=== PATIENT | female | born 1960 | race Caucasian/White ===

== ENCOUNTER 2019-05-11 18:49 | Inpatient (IN) | payer MEDICARE, OTHER ==
[2019-05-11] MEDS ORDERED: FAMOTIDINE 20 MG/2 ML VIAL IV STA (19:26)
[2019-05-11] MEDS ORDERED: diphenhydrAMINE 50 MG/ML 1 ML VIAL IVP STA (19:26)
[2019-05-11] MEDS ORDERED: methylPREDNISolone SOD SUCCI 125 MG/2 ML VIAL IV STA (19:26)
--- NOTE | 2019-05-11 20:54 | ED ---
General Adult HPI - General Chief complaint: Recheck/Abnormal Lab/Rx Stated complaint: tongue swelling Time Seen by Provider: 05/11/19 18:58 Source: Caregiver Mode of arrival: ambulatory Limitations: no limitations - History of Present Illness Initial comments: 59-year-old female patient presents to the emergency department today for evaluation of swelling to her tongue. Patient [place] the [place] and while there she began having difficulty swallowing due to her tongue being swollen. Patient is developmentally delayed and lives in an [facility]. She is mostly nonverbal. Patient did have a similar episode 4 days ago where she was seen at [facility] and given epinephrine, Benadryl, cimetidine, Pepcid, and 4 units of fresh frozen plasma. Symptoms did resolve in the department she was discharged home on a prednisone taper. Patient is still taking the steroid. She had been doing well until return of symptoms today. Caregiver reports that she did start using a chlorhexidine mouth wash for inflamed gums around the time that the tongue swelling started. Patient is having no lip swelling. No evidence of shortness of breath or difficulty in breathing. She has no rash. She does not appear to be itchy. Her only known medication [facility]ERGIES lithium and topiramate. - Related Data Home Medications Medication Instructions Recorded Confirmed Bumetanide [Bumex] 1 mg PO DAILY@0700 09/15/18 05/11/19 Calcium Carbonate 500 mg PO BID@0700,1600 09/15/18 05/11/19 Carbidopa-Levodopa 25-100 mg 2 tab PO BID@0600,1400 09/15/18 05/11/19 [Sinemet 25-100] Fiber Powder 1 tbsp PO DAILY@199909/15/18 05/11/19 Ipratropium-Albuterol Nebulize 3 ml INHALATION RT-QID PRN 09/15/18 05/11/19 [Duoneb 0.5 mg-3 mg/3 ml Soln] Levothyroxine Sodium [Synthroid] 100 mcg PO HS@199909/15/18 05/11/19 Lovastatin [Mevacor] 40 mg PO HS@199909/15/18 05/11/19 Multivits,Th W-Ca,Fe,Oth Min 1 tab PO DAILY@0700 09/15/18 05/11/19 [Therapeutic M] Polyethylene Glycol 3350 [Miralax] 17 gm PO DAILY@0700 09/15/18 05/11/19 Potassium Chloride ER [K-Dur 20] 20 meq PO DAILY@0700 09/15/18 05/11/19 QUEtiapine [SEROquel] 400 mg PO HS@199909/15/18 05/11/19 clonazePAM [KlonoPIN] 1 mg PO BID@0700,1200 09/15/18 05/11/19 traZODone HCL [Desyrel] 50 mg PO HS@199909/15/18 05/11/19 Benztropine Mesylate [Cogentin] 1 mg PO BID@0700,199905/11/19 05/11/19 Chlorhexidine Gluconate [Peridex] 15 ml PO BID 05/11/19 05/11/19 Fluticasone Nasal [place] [Flonase 2 spr EA NOSTRIL DAILY@69905/11/19 05/11/19 Nasal [place]] Loratadine [Claritin] 10 mg PO DAILY@69905/11/19 05/11/19 predniSONE See Taper PO DAILY 05/11/19 05/11/19 Allergies Allergy/AdvReac Type Severity Reaction Status Date / Time lithium Allergy Unknown Verified 05/11/19 21:21 topiramate [From Topamax] Allergy Unknown Verified 05/11/19 21:21 Review of Systems ROS Statement: Those systems with pertinent positive or pertinent negative responses have been documented in the HPI. ROS Other: All systems not noted in ROS Statement are negative. 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; pharyngeal dysphagia; percardial cyst; right side aortic arch; sleep apnea; bronchial asthma; venous insufficincy; chronic constipation; hammer toe 2 - 5 History of Any Multi-Drug Resistant Organisms: None Reported Additional Past Surgical History / Comment(s): salvary gland left side removed Past Psychological History: Bipolar, Depression Smoking Status: Never smoker Past Alcohol Use History: None Reported Past Drug Use History: None Reported - Past Family History Mother Family Medical History: Unable to Obtain General Exam Limitations: no limitations General appearance: alert, in no apparent distress, other (Physical well- developed, well-nourished adult female patient in no acute distress. Vital signs upon presentation are temperature 99.7F, pulse 106, respirations 18, blood pressure 103/56, pulse ox 97% on room air.) Eye exam: Present: normal appearance, PERRL, EOMI. Absent: scleral icterus, conjunctival injection, periorbital swelling ENT exam: Present: normal exam, normal oropharynx, mucous membranes moist Respiratory exam: Present: normal lung sounds bilaterally. Absent: respiratory distress, wheezes, rales, rhonchi, stridor Cardiovascular Exam: Present: regular rate, normal rhythm, normal heart sounds. Absent: systolic murmur, diastolic murmur, rubs, gallop, clicks Neurological exam: Present: alert, oriented X3, CN II-XII intact Psychiatric exam: Present: normal affect, normal mood Skin exam: Present: warm, dry, intact, normal color. Absent: rash Course Vital Signs 05/11/19 05/11/19 18:50 21:41 Temperature 99.7 F H 97.6 F Pulse Rate 106 H 76 Respiratory 18 16 Rate Blood Pressure 103/56 161/94 O2 Sat by Pulse 97 98 Oximetry Medical Decision Making - Medical Decision Making 59-year-old female patient presents to the emergency department today for evaluation of swelling to the tongue. Physical examination did reveal macroglossia. There is no facial or submental swelling. Patient is breathing without difficulty. Labs reviewed and are unremarkable. Patient did have a similar episode to this approximately 4 days ago and has been on a prednisone taper. Caregiver is present at bedside initially denied any new exposures including medications or foods. She then reported that patient did start a chlorhexidine mouth rinse around the same time as the initial tongue swelling. Patient was given IV indications including Solu-Medrol, Benadryl, and Pepcid. Upon reevaluation the tongue remains the same size. She is still having no difficulty breathing. We'll mid for observation and continued IV steroids. - Lab Data Result diagrams: 05/11/19 21:36 05/11/19 21:36 Lab Results 05/11/19 05/11/19 Range/Units 21:36 21:36 WBC 5.1 (3.8-10.6) k/uL RBC 3.75 L (3.80-5.40) m/uL Hgb 11.6 (11.4-16.0) gm/dL Hct 35.9 (34.0-46.0) % MCV 95.7 (80.0-100.0) fL MCH 31.1 (25.0-35.0) pg MCHC 32.5 (31.0-37.0) g/dL RDW 13.5 (11.5-15.5) % Plt Count 166 (150-450) k/uL Neutrophils % 85 % Lymphocytes % 12 % Monocytes % 2 % Eosinophils % 0 % Basophils % 0 % Neutrophils # 4.4 (1.3-7.7) k/uL Lymphocytes # 0.6 L (1.0-4.8) k/uL Monocytes # 0.1 (0-1.0) k/uL Eosinophils # 0.0 (0-0.7) k/uL Basophils # 0.0 (0-0.2) k/uL Sodium 139 (137-145) mmol/L Potassium 4.5 (3.5-5.1) mmol/L Chloride 102 (98-107) mmol/L Carbon Dioxide 30 (22-30) mmol/L Anion Gap 7 mmol/L BUN 21 H (7-17) mg/dL Creatinine 0.92 (0.52-1.04) mg/dL Est GFR (CKD-EPI)AfAm 79 (>60 ml/min/1.73 sqM) Est GFR (CKD-EPI)NonAf 68 (>60 ml/min/1.73 sqM) Glucose 126 H (74-99) mg/dL Calcium 9.6 (8.4-10.2) mg/dL Total Bilirubin 0.3 (0.2-1.3) mg/dL AST 25 (14-36) U/L ALT 13 (9-52) U/L Alkaline Phosphatase 96 (38-126) U/L Total Protein 7.9 (6.3-8.2) g/dL Albumin 4.5 (3.5-5.0) g/dL Disposition Clinical Impression: Angioedema Disposition: ADMITTED IP TO THIS [facility] Condition: Serious Referrals: Carlitos Valenzuela MD [Primary Care Provider] - 1-2 days Decision to Admit Reason: Admit from EC Decision Date: 05/11/19 Decision Time: 20:58
[2019-05-11] MEDS ORDERED: NALOXONE 0.4 MG/ML 1 ML VIAL IV PRN (20:56)
[2019-05-11 22:05] LABS: Basophils % (A) 0 %; Eosinophils % (A) 0 %; HCT 35.9 % (34.0-46.0); HGB 11.6 gm/dL (11.4-16.0); Lymphocytes # (A) 0.6 k/uL (1.0-4.8); Lymphocytes % (A) 12 %; MCH 31.1 pg (25.0-35.0); MCHC 32.5 g/dL (31.0-37.0); MCV 95.7 fL (80.0-100.0); Mean Platelet Volume 8.4; Monocytes # (A) 0.1 k/uL (0-1.0); Monocytes % (A) 2 %; Neutrophils # (A) 4.4 k/uL (1.3-7.7); Neutrophils % (A) 85 %; Platelet Count 166 k/uL (150-450); RBC 3.75 m/uL (3.80-5.40); RDW 13.5 % (11.5-15.5); WBC 5.1 k/uL (3.8-10.6)
[2019-05-11 22:13] LABS: Albumin 4.5 g/dL (3.5-5.0); Calcium 9.6 mg/dL (8.4-10.2); Potassium 4.5 mmol/L (3.5-5.1); Total Bilirubin 0.3 mg/dL (0.2-1.3); Total Protein 7.9 g/dL (6.3-8.2)
[2019-05-11] MEDS ORDERED: diphenhydrAMINE 50 MG/ML 1 ML VIAL IVP PRN (22:54)
[2019-05-12] MEDS: methylPREDNISolone SOD SUCCI 125 MG/2 ML VIAL IV SCH ×3 (01:56→13:39)
[2019-05-12] MEDS: FAMOTIDINE 20 MG/2 ML VIAL IV SCH (08:58)
[2019-05-12] MEDS ORDERED: IPRATROPIUM-ALBUTEROL 3 ML NEB INHALATION PRN (10:09)
[2019-05-12] MEDS: CARBIDOPA-LEVODOPA 25-100 MG 1 EACH TAB PO SCH (13:40)
[2019-05-12] MEDS: clonazePAM 1 MG TAB PO SCH (13:40)
--- NOTE | 2019-05-12 16:27 | HP ---
HISTORY AND PHYSICAL CHIEF COMPLAINT: Angioedema with swelling of the tongue. HISTORY OF PRESENT ILLNESS: It is difficult to obtain history on this 59-year-old white mentally incapacitated female from a residential. She was sent in and it was notice that she had significant swelling of the tongue. There apparently was no change in the skin, respiratory difficulty, fever and chills, etc. The cause of this is undetermined. REVIEW OF SYSTEMS: Cannot be obtained from the patient. Past medical history, family history and personal and social histories are unobtainable. Medications are extensive and can be found in her MAR. PHYSICAL EXAMINATION: Blood pressure is 138/87 with a pulse of 88, respirations of 30, and she is there is no fever. Head, ears, eyes, nose, mouth, and throat were grossly normal as well as could be examined. There was little cooperation. Neck could not be assessed. Breath sounds are heard on both sides of the chest and the cardiac exam demonstrated a grade 2-3 systolic murmur throughout the precordium. Abdomen is soft and no masses. Extremities demonstrated a parkinsonian tremor in the arms and hands on both sides. IMPRESSION: 1. Angioedema. 2. Cerebral palsy with mental debility. 3. Parkinsonism. PLAN: 1. Bed rest. 2. IV fluids. 3. Steroids. MMODL / IJN: [id number] /
[2019-05-12] MEDS: diphenhydrAMINE 50 MG/ML 1 ML VIAL IVP SCH (18:06)
[2019-05-12] MEDS: DEXAMETHASONE SOD PHOSPHATE 4 MG/ML 1 ML VIAL IV SCH ×2 (18:06→18:57)
[2019-05-12] MEDS: CHLORHEXIDINE GLUCONATE 15 ML CUP MUCOUS MEM SCH (21:09)
[2019-05-12] MEDS: ATORVASTATIN 10 MG TAB PO SCH (21:10)
[2019-05-12] MEDS: LEVOTHYROXINE 100 MCG TAB PO SCH (21:10)
[2019-05-12] MEDS: traZODone HCL 50 MG TAB PO SCH (21:10)
[2019-05-12] MEDS: QUEtiapine 200 MG TAB PO SCH (21:10)
[2019-05-12] MEDS: BENZTROPINE MESYLATE 1 MG TAB PO SCH (21:10)
--- NOTE | 2019-05-12 23:24 | DS ---
DISCHARGE SUMMARY CHIEF COMPLAINT: Angioedema. HISTORY OF PRESENT ILLNESS AND PHYSICAL EXAM: Details of this lady's history and physical can be found in the initial workup. LABORATORY STUDIES: While she was in the hospital, she had laboratory studies, details of which can be found in the laboratory section of her chart. COURSE IN HOSPITAL: After admission, she was placed on bedrest and started on bedrest with steroids and the swelling went down. Vital signs remained stable and no further problems developed. It is felt that she could go home the following day and she will be sent home on her usual medications and activity along with Medrol Dosepak. FINAL DIAGNOSES: 1. Angioedema, etiology unknown. 2. Mental incapacitation. 3. Cardiac murmur. 4. Parkinsonism. OPERATIONS: None. CONSULTATION: None. She is improved. MMODL / IJN: [id number] /
[2019-05-13] MEDS: diphenhydrAMINE 50 MG/ML 1 ML VIAL IVP SCH ×4 (00:02→17:57)
[2019-05-13] MEDS: DEXAMETHASONE SOD PHOSPHATE 4 MG/ML 1 ML VIAL IV SCH ×4 (00:02→18:10)
[2019-05-13] MEDS: CARBIDOPA-LEVODOPA 25-100 MG 1 EACH TAB PO SCH ×2 (05:03→14:35)
[2019-05-13] MEDS: POTASSIUM CHLORIDE ER 20 MEQ TAB.ER PO SCH ×2 (08:34→10:54)
[2019-05-13] MEDS: clonazePAM 1 MG TAB PO SCH ×2 (08:34→12:50)
[2019-05-13] MEDS: BUMETANIDE 1 MG TAB PO SCH (08:35)
[2019-05-13] MEDS: BENZTROPINE MESYLATE 1 MG TAB PO SCH ×2 (08:35→20:51)
[2019-05-13] MEDS: LORATADINE 10 MG TAB PO SCH (08:35)
[2019-05-13] MEDS: POLYETHYLENE GLYCOL 3350 17 GM POWD.PACK PO SCH (08:35)
[2019-05-13] MEDS: FAMOTIDINE 20 MG/2 ML VIAL IV SCH (08:37)
[2019-05-13] MEDS: methylPREDNISolone 4 MG TAB TAPER PO SCH (08:37)
[2019-05-13] MEDS: CHLORHEXIDINE GLUCONATE 15 ML CUP MUCOUS MEM SCH ×2 (12:45→20:51)
--- NOTE | 2019-05-13 13:19 | PN ---
PROGRESS NOTE DATE OF SERVICE: 05/13/2019 CHIEF COMPLAINT: Angioedema. HISTORY OF PRESENT ILLNESS: This lady seems stable for the present. She was to be discharged yesterday and then she started to develop swelling of the tongue, lips and throat and was placed back on steroids and antihistamines. PHYSICAL EXAMINATION: The tongue is still slightly swollen. There is no rash. Chest is clear. There is no wheezing. IMPRESSION: Angioedema, etiology unknown. PLAN: Continue on antihistamines and steroids for another 48 hours before trying to stop them and discharge her. MMODL / IJN: [id number] /
[2019-05-13] MEDS: LEVOTHYROXINE 100 MCG TAB PO SCH (20:51)
[2019-05-13] MEDS: traZODone HCL 50 MG TAB PO SCH (20:51)
[2019-05-13] MEDS: QUEtiapine 200 MG TAB PO SCH (20:51)
[2019-05-13] MEDS: ATORVASTATIN 10 MG TAB PO SCH (20:51)
[2019-05-14] MEDS: diphenhydrAMINE 50 MG/ML 1 ML VIAL IVP SCH ×5 (00:07→20:09)
[2019-05-14] MEDS: DEXAMETHASONE SOD PHOSPHATE 4 MG/ML 1 ML VIAL IV SCH ×2 (00:07→05:30)
[2019-05-14] MEDS: CARBIDOPA-LEVODOPA 25-100 MG 1 EACH TAB PO SCH ×2 (05:31→13:07)
[2019-05-14 06:55] LABS: Glucose,Whole Blood 117 mg/dL (75-99)
[2019-05-14] MEDS ORDERED: INSULIN ASPART (NovoLOG) 100 UNIT/ML VIAL SQ SCH (07:30)
[2019-05-14] MEDS: FAMOTIDINE 20 MG/2 ML VIAL IV SCH (08:42)
[2019-05-14] MEDS: BENZTROPINE MESYLATE 1 MG TAB PO SCH ×2 (08:42→20:05)
[2019-05-14] MEDS: POTASSIUM CHLORIDE ER 20 MEQ TAB.ER PO SCH (08:42)
[2019-05-14] MEDS: clonazePAM 1 MG TAB PO SCH ×2 (08:42→13:07)
[2019-05-14] MEDS: LORATADINE 10 MG TAB PO SCH (08:42)
[2019-05-14] MEDS: BUMETANIDE 1 MG TAB PO SCH (08:43)
[2019-05-14] MEDS: POLYETHYLENE GLYCOL 3350 17 GM POWD.PACK PO SCH (08:43)
[2019-05-14] MEDS: CHLORHEXIDINE GLUCONATE 15 ML CUP MUCOUS MEM SCH ×2 (08:43→20:05)
[2019-05-14] MEDS: methylPREDNISolone 4 MG TAB TAPER PO SCH (08:54)
[2019-05-14 11:35] LABS: Glucose,Whole Blood 163 mg/dL (75-99)
--- NOTE | 2019-05-14 18:13 | PN ---
PROGRESS NOTE DATE OF SERVICE: 05/14/2019. CHIEF COMPLAINT: Angioedema. HISTORY OF PRESENT ILLNESS: This lady is doing fairly well. Her lip and tongue swelling is improving slightly. She seems comfortable. It is difficult to tell given her incapacitation. PHYSICAL EXAMINATION: The tongue still looks slightly swollen, but the lips seem be normal. Lymph nodes not enlarged. Chest is clear. IMPRESSION: Angioedema. PLAN: Stop her IV and oral steroids and see how she does. If she does well, she could probably be discharged in the next 48 hours. MMODL / IJN: [id number] /
[2019-05-14] MEDS: QUEtiapine 200 MG TAB PO SCH (20:05)
[2019-05-14] MEDS: traZODone HCL 50 MG TAB PO SCH (20:05)
[2019-05-14] MEDS: ATORVASTATIN 10 MG TAB PO SCH (20:05)
[2019-05-14] MEDS: LEVOTHYROXINE 100 MCG TAB PO SCH (20:05)
[2019-05-15] MEDS: CARBIDOPA-LEVODOPA 25-100 MG 1 EACH TAB PO SCH ×2 (06:04→14:27)
[2019-05-15] MEDS: diphenhydrAMINE 50 MG/ML 1 ML VIAL IVP SCH ×4 (06:05→21:38)
[2019-05-15] MEDS: POLYETHYLENE GLYCOL 3350 17 GM POWD.PACK PO SCH (08:41)
[2019-05-15] MEDS: LORATADINE 10 MG TAB PO SCH (08:41)
[2019-05-15] MEDS: CHLORHEXIDINE GLUCONATE 15 ML CUP MUCOUS MEM SCH ×2 (08:41→20:38)
[2019-05-15] MEDS: POTASSIUM CHLORIDE ER 20 MEQ TAB.ER PO SCH (08:41)
[2019-05-15] MEDS: FAMOTIDINE 20 MG/2 ML VIAL IV SCH (08:42)
[2019-05-15] MEDS: clonazePAM 1 MG TAB PO SCH ×2 (08:42→14:27)
[2019-05-15] MEDS: BUMETANIDE 1 MG TAB PO SCH (08:42)
[2019-05-15] MEDS: BENZTROPINE MESYLATE 1 MG TAB PO SCH ×2 (08:42→20:43)
--- NOTE | 2019-05-15 15:57 | PN ---
PROGRESS NOTE CHIEF COMPLAINT: Angioneurotic edema. HISTORY OF PRESENT ILLNESS: This lady seems to be doing fairly well today. It is a little difficult to figure out exactly where she is with the swelling of the tongue and lips, but they look fairly normal. PHYSICAL EXAMINATION: Chest is clear. Cardiac exam is normal. IMPRESSION: 1. Angioedema. 2. Mental debility. PLAN: Probably watch one more day off of steroids and then discharge back to the care home. MMODL / IJN: [id number] /
[2019-05-15] MEDS: LEVOTHYROXINE 100 MCG TAB PO SCH (20:38)
[2019-05-15] MEDS: ATORVASTATIN 10 MG TAB PO SCH (20:38)
[2019-05-15] MEDS: QUEtiapine 200 MG TAB PO SCH (20:38)
[2019-05-15] MEDS: traZODone HCL 50 MG TAB PO SCH (20:38)
[2019-05-16] MEDS: CARBIDOPA-LEVODOPA 25-100 MG 1 EACH TAB PO SCH (06:22)
[2019-05-16] MEDS: diphenhydrAMINE 50 MG/ML 1 ML VIAL IVP SCH ×2 (06:22→12:07)
[2019-05-16 07:57] VITALS: BP 110/99; PULSE 80; RESP 18; TEMP 98.3
[2019-05-16] MEDS: BUMETANIDE 1 MG TAB PO SCH (08:51)
[2019-05-16] MEDS: BENZTROPINE MESYLATE 1 MG TAB PO SCH (08:51)
[2019-05-16] MEDS: POTASSIUM CHLORIDE ER 20 MEQ TAB.ER PO SCH (08:51)
[2019-05-16] MEDS: clonazePAM 1 MG TAB PO SCH ×2 (08:51→17:49)
[2019-05-16] MEDS: FAMOTIDINE 20 MG/2 ML VIAL IV SCH (08:51)
[2019-05-16] MEDS: CHLORHEXIDINE GLUCONATE 15 ML CUP MUCOUS MEM SCH (08:52)
[2019-05-16] MEDS: LORATADINE 10 MG TAB PO SCH (08:52)
[2019-05-16] MEDS: POLYETHYLENE GLYCOL 3350 17 GM POWD.PACK PO SCH (08:52)
--- NOTE | 2019-05-16 22:29 | PN ---
PROGRESS NOTE CHIEF COMPLAINT: Angioedema. HISTORY OF PRESENT ILLNESS: This lady seems to be doing fairly well and seems stable. We will try to discharge her today. PHYSICAL EXAM: Oral cavity and tongue appear to be normal. Lips are not swollen. Chest is clear. IMPRESSION: Angioedema. PLAN: Discharge today. MMODL / IJN: [id number] /
--- NOTE | 2019-05-16 23:14 | DS ---
DISCHARGE SUMMARY CHIEF COMPLAINT: Angioedema. HISTORY OF PRESENT ILLNESS AND PHYSICAL EXAM: Details of this lady's history and physical can be found in the initial workup. LABORATORY STUDIES: While she was in the hospital, she had laboratory studies, details of which can be found in the laboratory section of her chart. COURSE IN HOSPITAL: After admission, she was placed on bedrest and started on IV steroids. The swelling subsided. She is difficult to evaluate due to her mental incapacitation. She was stable for several days and was felt that she could go home. However, as soon as the steroids were withdrawn, she redeveloped the angioedema, swelling of the throat, the tongue and lips. She was placed back on steroids and Benadryl and the steroids were stopped the day prior to discharge and she seemed to be stable. It was felt that she could go home on the on her usual activity, diet and medication and she will follow up with her own personal physician in the home that she is in. FINAL DIAGNOSES: 1. Angioedema. 2. Mental incapacitation. OPERATION: None. CONSULTATION: She is improved. MMODL / IJN: [id number] /
[2019-05-17] MEDS ORDERED: FAMOTIDINE 20 MG TAB PO SCH (09:00)
== END 2019-05-16 17:57 | disposition home or self-care (01) | DRG 916 ==
LOC: EC 18:49 → 1SOBS 21:48 → OBSVTOIN 05-13 15:28
PROVIDERS: ADMIT Family Medicine; ATTEND Family Medicine
DX: T78.3XXA Angioneurotic edema, initial encounter (principal); E78.5 Hyperlipidemia, unspecified; F79 Unspecified intellectual disabilities; G20 Parkinson's disease; G40.909 Epilepsy, unspecified, not intractable, without status epilepticus; G47.30 Sleep apnea, unspecified; G80.9 Cerebral palsy, unspecified; H90.5 Unspecified sensorineural hearing loss; I87.2 Venous insufficiency (chronic) (peripheral); J44.9 Chronic obstructive pulmonary disease, unspecified; Q38.2 Macroglossia; R13.10 Dysphagia, unspecified; Z79.890 Hormone replacement therapy; Z88.8 Allergy status to other drugs, medicaments and biological substances; R01.1 Cardiac murmur, unspecified; Z79.899 Other long term (current) drug therapy
CPT/HCPCS: 36415; 80053; 85025; 96374; 96375; 99284

== ENCOUNTER 2019-05-17 22:38 | Inpatient (IN) | payer MEDICARE, OTHER ==
[2019-05-17] MEDS ORDERED: diphenhydrAMINE 50 MG/ML 1 ML VIAL IVP STA (23:01)
[2019-05-17] MEDS ORDERED: methylPREDNISolone SOD SUCCI 125 MG/2 ML VIAL IV STA (23:01)
[2019-05-17] MEDS ORDERED: SODIUM CHLORIDE 0.9% 1,000 ML IV STA (23:02)
[2019-05-17] MEDS ORDERED: FAMOTIDINE 20 MG/2 ML VIAL IV STA (23:02)
[2019-05-17 23:27] LABS: Basophils % (A) 0 %; Eosinophils % (A) 0 %; HCT 40.9 % (34.0-46.0); HGB 13.1 gm/dL (11.4-16.0); Lymphocytes # (A) 0.4 k/uL (1.0-4.8); Lymphocytes % (A) 4 %; MCH 30.4 pg (25.0-35.0); MCV 95.1 fL (80.0-100.0); Mean Platelet Volume 8.7; Monocytes # (A) 0.2 k/uL (0-1.0); Monocytes % (A) 2 %; Neutrophils # (A) 8.3 k/uL (1.3-7.7); Neutrophils % (A) 92 %; Platelet Count 179 k/uL (150-450); RDW 13.4 % (11.5-15.5); WBC 9.1 k/uL (3.8-10.6)
[2019-05-17 23:35] LABS: Albumin 4.4 g/dL (3.5-5.0); Calcium 9.2 mg/dL (8.4-10.2); Potassium 4.7 mmol/L (3.5-5.1); Total Bilirubin 0.3 mg/dL (0.2-1.3); Total Protein 8.1 g/dL (6.3-8.2)
--- NOTE | 2019-05-18 00:30 | CT ---
EXAM: CT Neck Without Intravenous Contrast CLINICAL HISTORY: ITS.REASON CT Reason: Pain TECHNIQUE: Axial computed tomography images of the neck without intravenous contrast. This CT exam was performed using one or more of the following dose reduction techniques: automated exposure control, adjustment of the mA and/or kV according to patient size, and/or use of iterative reconstruction technique. COMPARISON: No relevant prior studies available. FINDINGS: Oropharynx: Unremarkable. No significant tonsillar enlargement. Hypopharynx: Unremarkable. Larynx: Unremarkable. Normal epiglottis. Trachea: Unremarkable. Retropharyngeal space: Unremarkable. Submandibular/parotid glands: Unremarkable. Glands are normal in size. Thyroid: No suspicious nodules. Bones/joints: No acute fracture. Soft tissues: Unremarkable. Vasculature: No suspicious findings. Lymph nodes: Unremarkable. No lymphadenopathy. Lung apices: Unremarkable as visualized. IMPRESSION: No acute findings.
--- NOTE | 2019-05-18 01:22 | ED ---
Allergic Reaction HPI - General Chief complaint: Allergic Reaction Stated complaint: Tongue Swelling Time Seen by Provider: 05/17/19 22:45 Source: Caregiver Mode of arrival: ambulatory Limitations: altered mental status - History of Present Illness Initial Comments: The patient is a 59-year-old female who presents to the emergency department with reported tongue swelling. The patient was just recently discharged for similar complaint. She was also seen at [facility], treated and discharged. The caregiver at bedside does provide the history. The patient is currently nonverbal at baseline. They state that during dinner tonight the patient began having difficulty swallowing her foods. They did ask to examine the patient's airway and they did notice that the patient had an enlarged tongue. The patient was just previously treated for angioedema. She was given steroids with good improvement previously in her symptoms. She never required intubation. The patient is not on any Juan Jose inhibitors. The patient was recently taken off a significant amount of her medications. They deny any new medications. They deny that the patient has eaten any new foods. She was on a mouthwash which has subsequently been stopped. No history of ALLERGIC reactions in the past. They're told to return to the emergency department if the patient symptoms worsen. They deny any respiratory compromise. There are no other alleviating, precipitating or modifying factors - Related Data Home Medications Medication Instructions Recorded Confirmed Calcium Carbonate 500 mg PO BID@0700,1600 09/15/18 05/17/19 Fiber Powder 1 tbsp PO DAILY@199909/15/18 05/17/19 Ipratropium-Albuterol Nebulize 3 ml INHALATION RT-QID PRN 09/15/18 05/17/19 [Duoneb 0.5 mg-3 mg/3 ml Soln] Multivits,Th W-Ca,Fe,Oth Min 1 tab PO DAILY@0700 09/15/18 05/17/19 [Therapeutic M] Potassium Chloride ER [K-Dur 20] 20 meq PO DAILY@69909/15/18 05/17/19 clonazePAM [KlonoPIN] 1 mg PO BID@0700,1200 09/15/18 05/17/19 Benztropine Mesylate [Cogentin] 1 mg PO BID@0700,199905/11/19 05/17/19 Fluticasone Nasal [place] [Flonase 2 spr EA NOSTRIL DAILY@0700 19 07/31/19 Nasal [place]] Loratadine [Claritin] 10 mg PO DAILY@69905/11/19 05/17/19 ARIPiprazole [Abilify] 10 mg PO DAILY@69905/17/19 05/17/19 Budesonide [Pulmicort] 0.5 mg INHALATION DAILY PRN 05/17/19 05/17/19 Polyethylene Glycol 3350 [Miralax] 17 gm PO BID@699,199905/17/19 05/17/19 Allergies Allergy/AdvReac Type Severity Reaction Status Date / Time lithium Allergy Unknown Verified 05/17/19 23:11 topiramate [From Topamax] Allergy Unknown Verified 05/17/19 23:11 Review of Systems ROS Statement: Those systems with pertinent positive or pertinent negative responses have been documented in the HPI. Limitations: ROS unobtainable due to patients medical condition 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; pharyngeal dysphagia; percardial cyst; right side aortic arch; sleep apnea; bronchial asthma; venous insufficincy; chronic constipation; hammer toe 2 - 5 History of Any Multi-Drug Resistant Organisms: None Reported Additional Past Surgical History / Comment(s): salvary gland left side removed Additional Past Anesthesia/Blood Transfusion Reaction / Comment(s): unknown, pt nonverbal developmentally delayed. Past Psychological History: Bipolar, Depression Smoking Status: Never smoker Past Alcohol Use History: None Reported Past Drug Use History: None Reported - Past Family History Mother Family Medical History: Unable to Obtain General Exam Limitations: altered mental status General appearance: alert, in no apparent distress Head exam: Present: atraumatic, normocephalic, normal inspection Eye exam: Present: normal appearance, PERRL, EOMI. Absent: scleral icterus, conjunctival injection, periorbital swelling ENT exam: Present: other (macroglossia. Floor of mouth appears edematous. Posterior pharynx appears normal. No uvular deviation. No signs of thrush. No drooling, trismus, hoarseness or stridor) Neck exam: Present: normal inspection, other (no crepitance or brawny edema). Absent: tenderness, meningismus, lymphadenopathy Respiratory exam: Present: normal lung sounds bilaterally. Absent: respiratory distress, wheezes, rales, rhonchi, stridor Cardiovascular Exam: Present: regular rate, normal rhythm, normal heart sounds. Absent: systolic murmur, diastolic murmur, rubs, gallop, clicks GI/Abdominal exam: Present: soft, normal bowel sounds. Absent: distended, tenderness, guarding, rebound, rigid Extremities exam: Present: normal inspection, full ROM, normal capillary refill. Absent: tenderness, pedal edema, joint swelling, calf tenderness Back exam: Present: normal inspection Neurological exam: Present: alert, CN II-XII intact Psychiatric exam: Present: anxious, flat affect Skin exam: Present: warm, dry, intact, normal color. Absent: rash Course Vital Signs 05/17/19 05/17/19 05/18/19 22:41 22:56 02:41 Temperature 97.6 F Pulse Rate 98 89 Respiratory 16 18 18 Rate Blood Pressure 151/85 138/99 O2 Sat by Pulse 94 L 95 Oximetry Medical Decision Making - Medical Decision Making Upon arrival the patient was placed in a trauma bay 1. She was hooked up to continuous pulse ox and cardiac monitoring. A full physical exam was performed. There does not appear to be any swelling of the patient's posterior pharynx. She is resting comfortably in bed. There are no signs of respiratory distress or stridor. No drooling, trismus or hoarseness to the patient's voice. She is presently nonverbal. I did recommend laboratory studies and a CT of the patient's neck. Peripheral IV was established and the patient was given 125 mg Solu-Medrol, 20 mg of Pepcid and 50 mg of Benadryl. The patient does have serial exams performed. The swelling does seem improved. She continues to not have any signs of respiratory distress. I recommended the patient stay in the hospital. I called to discuss case with Dr. Dillon. I did discuss with him whether the patient should be admitted to ICU however he states the patient does respond normally well to the steroids. I did admit the patient to a normal telemetry monitored bed. The patient remained in stable condition was transported to the floor - Lab Data Result diagrams: 05/19/19 07:24 05/19/19 07:24 Lab Results 05/17/19 05/17/19 05/17/19 Range/Units 23:16 23:16 23:16 WBC 9.1 (3.8-10.6) k/uL RBC 4.30 (3.80-5.40) m/uL Hgb 13.1 (11.4-16.0) gm/dL Hct 40.9 (34.0-46.0) % MCV 95.1 (80.0-100.0) fL MCH 30.4 (25.0-35.0) pg MCHC 32.0 (31.0-37.0) g/dL RDW 13.4 (11.5-15.5) % Plt Count 179 (150-450) k/uL Neutrophils % 92 % Lymphocytes % 4 % Monocytes % 2 % Eosinophils % 0 % Basophils % 0 % Neutrophils # 8.3 H (1.3-7.7) k/uL Lymphocytes # 0.4 L (1.0-4.8) k/uL Monocytes # 0.2 (0-1.0) k/uL Eosinophils # 0.0 (0-0.7) k/uL Basophils # 0.0 (0-0.2) k/uL Sodium 138 (137-145) mmol/L Potassium 4.7 (3.5-5.1) mmol/L Chloride 98 (98-107) mmol/L Carbon Dioxide 28 (22-30) mmol/L Anion Gap 12 mmol/L BUN 29 H (7-17) mg/dL Creatinine 0.94 (0.52-1.04) mg/dL Est GFR (CKD-EPI)AfAm 76 (>60 ml/min/1.73 sqM) Est GFR (CKD-EPI)NonAf 66 (>60 ml/min/1.73 sqM) Glucose 136 H (74-99) mg/dL Plasma Lactic Acid Dniesh (0.7-2.0) mmol/L Calcium 9.2 (8.4-10.2) mg/dL Total Bilirubin 0.3 (0.2-1.3) mg/dL AST 28 (14-36) U/L ALT 17 (9-52) U/L Alkaline Phosphatase 105 (38-126) U/L Total Protein 8.1 (6.3-8.2) g/dL Albumin 4.4 (3.5-5.0) g/dL Blood Type Blood Type Confirm A Positive Blood Type Recheck Antibody Screen Spec Expiration Date 05/18/19 05/18/19 05/18/19 Range/Units 02:56 19:01 19:01 WBC 7.8 (3.8-10.6) k/uL RBC 4.15 (3.80-5.40) m/uL Hgb 13.2 (11.4-16.0) gm/dL Hct 40.3 (34.0-46.0) % MCV 97.3 (80.0-100.0) fL MCH 31.9 (25.0-35.0) pg MCHC 32.7 (31.0-37.0) g/dL RDW 13.5 (11.5-15.5) % Plt Count 154 (150-450) k/uL Neutrophils % 91 % Lymphocytes % 6 % Monocytes % 2 % Eosinophils % 0 % Basophils % 0 % Neutrophils # 7.2 (1.3-7.7) k/uL Lymphocytes # 0.5 L (1.0-4.8) k/uL Monocytes # 0.2 (0-1.0) k/uL Eosinophils # 0.0 (0-0.7) k/uL Basophils # 0.0 (0-0.2) k/uL Sodium 141 (137-145) mmol/L Potassium 4.5 (3.5-5.1) mmol/L Chloride 106 (98-107) mmol/L Carbon Dioxide 26 (22-30) mmol/L Anion Gap 9 mmol/L BUN 22 H (7-17) mg/dL Creatinine 0.89 (0.52-1.04) mg/dL Est GFR (CKD-EPI)AfAm 82 (>60 ml/min/1.73 sqM) Est GFR (CKD-EPI)NonAf 71 (>60 ml/min/1.73 sqM) Glucose 143 H (74-99) mg/dL Plasma Lactic Acid Dinesh (0.7-2.0) mmol/L Calcium 9.5 (8.4-10.2) mg/dL Total Bilirubin 0.4 (0.2-1.3) mg/dL AST 26 (14-36) U/L ALT 35 (9-52) U/L Alkaline Phosphatase 100 (38-126) U/L Total Protein 7.5 (6.3-8.2) g/dL Albumin 4.2 (3.5-5.0) g/dL Blood Type A Positive Blood Type Confirm Blood Type Recheck CABO Indicated Antibody Screen NEGATIVE Spec Expiration Date 05/21/2019 - 235505/18/19 05/19/19 05/19/19 Range/Units 19:01 07:24 07:24 WBC 8.8 (3.8-10.6) k/uL RBC 3.79 L (3.80-5.40) m/uL Hgb 12.1 (11.4-16.0) gm/dL Hct 37.2 (34.0-46.0) % MCV 98.2 (80.0-100.0) fL MCH 31.8 (25.0-35.0) pg MCHC 32.4 (31.0-37.0) g/dL RDW 13.6 (11.5-15.5) % Plt Count 144 L (150-450) k/uL Neutrophils % 92 % Lymphocytes % 4 % Monocytes % 3 % Eosinophils % 0 % Basophils % 0 % Neutrophils # 8.1 H (1.3-7.7) k/uL Lymphocytes # 0.4 L (1.0-4.8) k/uL Monocytes # 0.3 (0-1.0) k/uL Eosinophils # 0.0 (0-0.7) k/uL Basophils # 0.0 (0-0.2) k/uL Sodium 141 (137-145) mmol/L Potassium 4.3 (3.5-5.1) mmol/L Chloride 108 H (98-107) mmol/L Carbon Dioxide 24 (22-30) mmol/L Anion Gap 9 mmol/L BUN 24 H (7-17) mg/dL Creatinine 0.93 (0.52-1.04) mg/dL Est GFR (CKD-EPI)AfAm 78 (>60 ml/min/1.73 sqM) Est GFR (CKD-EPI)NonAf 68 (>60 ml/min/1.73 sqM) Glucose 136 H (74-99) mg/dL Plasma Lactic Acid Dinesh 1.1 (0.7-2.0) mmol/L Calcium 8.9 (8.4-10.2) mg/dL Total Bilirubin (0.2-1.3) mg/dL AST (14-36) U/L ALT (9-52) U/L Alkaline Phosphatase (38-126) U/L Total Protein (6.3-8.2) g/dL Albumin (3.5-5.0) g/dL Blood Type Blood Type Confirm Blood Type Recheck Antibody Screen Spec Expiration Date Disposition Clinical Impression: Angioedema, Allergic reaction Disposition: ADMITTED IP TO THIS [facility] Condition: Serious Is patient prescribed a controlled substance at d/c from ED?: No Decision to Admit Reason: Admit from EC Decision Date: 05/18/19 Decision Time: 01:22
[2019-05-18] MEDS ORDERED: NALOXONE 0.4 MG/ML 1 ML VIAL IV PRN (01:23)
[2019-05-18] MEDS: diphenhydrAMINE 50 MG/ML 1 ML VIAL IVP SCH ×5 (03:31→21:14)
[2019-05-18] MEDS: methylPREDNISolone SOD SUCCI 125 MG/2 ML VIAL IV SCH ×4 (05:26→23:49)
[2019-05-18] MEDS ORDERED: FAMOTIDINE 20 MG/2 ML VIAL IV SCH (09:00)
[2019-05-18] MEDS: ARIPiprazole 10 MG TAB PO SCH (09:47)
[2019-05-18] MEDS: BENZTROPINE MESYLATE 1 MG TAB PO SCH ×2 (09:47→19:43)
--- NOTE | 2019-05-18 11:33 | CT ---
EXAMINATION TYPE: CT chest wo con DATE OF EXAM: 05/18/2019 COMPARISON: None HISTORY: Pain CT DLP: 442.9 mGycm. Automated Exposure Control for Dose Reduction was Utilized. TECHNIQUE: CT scan of the thorax is performed without IV contrast. FINDINGS: LUNGS: Faint subpleural 7 mm nodule in the right upper lobe axial image 30. No consolidative process, pleural effusion or pneumothorax.. There is no pleural effusion or pneumothorax seen. The tracheo bronchial tree is patent. MEDIASTINUM: Lack of IV contrast is noted to limit evaluation for mediastinal and especially hilar ad enopathy. Aorta extends posterior to the trachea does result in some deviation of the esophagus and t rachea atherosclerotic changes are noted.. OTHER: Hypertrophic and degenerative change of the vertebral column with multilevel mild endplate def ormities which appear chronic chronic-appearing left-sided rib fractures are noted. Structures in the upper abdomen demonstrate numerous markedly dilated bowel loops.. IMPRESSION: 1. No acute intrathoracic process. There is a 7 mm subpleural nodule right upper lobe axial image 29 and 30 which is indeterminate and a 6 month follow-up is recommended to confirm stability. 2. There are markedly dilated bowel loops which are only partially included in the upper abdomen anderson elate clinically. 3. The thoracic aorta extends retroesophageal and tracheal. Origins of great vessels are not well see n by noncontrast technique. This does result in some deviation the trachea and esophagus. Congenital vascular variants are difficult to evaluate by noncontrast technique.
--- NOTE | 2019-05-18 19:06 | HP ---
HISTORY AND PHYSICAL CHIEF COMPLAINT: Swelling of the tongue, lips and floor of mouth. HISTORY OF PRESENT ILLNESS: This is another admission for this 59-year-old mentally incapacitated female who was just discharged back to her shelter after she was treated for angioneurotic edema. Etiology is not clear. She was sent home on steroids and was seen in the office and was doing fairly well, but started to have a little bit of swelling in the floor of the mouth. She was taken off many of her medications in hopes that one of them might be causing the problem. She was brought back in in the middle of the night. REVIEW OF SYSTEMS: Review of systems cannot be obtained due to her dementia. Past medical history, family history and her medication history can all be found in the documents accompanying her from the home. PHYSICAL EXAMINATION: Blood pressure is 138/88 with a pulse of 71, respirations of 20, and she is afebrile. In general she appeared to be slightly overweight and she seemed to be comfortable, but when asked if she was having any problems she pointed to her throat. Head, ears, eyes, nose, mouth and throat were unremarkable except for what looked like some swelling on the floor of the mouth. Tongue also seemed to be slightly swollen. The lips appeared to be normal, but it was difficult to tell, in that this lady is not well known to me. Lymph nodes were not enlarged. Chest was clear. Cardiac exam was normal. The abdomen was soft and nontender. Extremities were normal. IMPRESSION: 1. Angioneurotic edema, recurrent, etiology unknown. 2. Mental incapacitation. PLAN: 1. Resume steroids. 2. Obtain ENT consult. 3. Obtain allergy consult. 4. CT of the chest to rule out any obstructing lesions that might result in a superior vena cava syndrome. MMODL / IJN: [id number] /
[2019-05-18 19:16] LABS: Basophils % (A) 0 %; Eosinophils % (A) 0 %; HCT 40.3 % (34.0-46.0); HGB 13.2 gm/dL (11.4-16.0); Lymphocytes # (A) 0.5 k/uL (1.0-4.8); Lymphocytes % (A) 6 %; MCH 31.9 pg (25.0-35.0); MCHC 32.7 g/dL (31.0-37.0); MCV 97.3 fL (80.0-100.0); Mean Platelet Volume 8.6; Monocytes # (A) 0.2 k/uL (0-1.0); Monocytes % (A) 2 %; Neutrophils # (A) 7.2 k/uL (1.3-7.7); Neutrophils % (A) 91 %; Platelet Count 154 k/uL (150-450); RBC 4.15 m/uL (3.80-5.40); RDW 13.5 % (11.5-15.5); WBC 7.8 k/uL (3.8-10.6)
[2019-05-18 19:25] LABS: Albumin 4.2 g/dL (3.5-5.0); Calcium 9.5 mg/dL (8.4-10.2); Potassium 4.5 mmol/L (3.5-5.1); Total Bilirubin 0.4 mg/dL (0.2-1.3); Total Protein 7.5 g/dL (6.3-8.2)
[2019-05-18] MEDS: ACETAMINOPHEN IV (For NPO) 1,000 MG in EMPTY BAG 1 BAG IVPB PRN (19:48)
[2019-05-18] MEDS: SODIUM CHLORIDE 0.9% 1,000 ML IV SCH (22:03)
[2019-05-18] MEDS: HYDROmorphone 0.5 MG/0.5 ML SYRINGE IVP PRN (23:48)
[2019-05-19] MEDS: diphenhydrAMINE 50 MG/ML 1 ML VIAL IVP SCH ×7 (00:34→23:11)
[2019-05-19] MEDS: ACETAMINOPHEN IV (For NPO) 1,000 MG in EMPTY BAG 1 BAG IVPB PRN ×2 (01:47→09:54)
[2019-05-19] MEDS: HYDROmorphone 0.5 MG/0.5 ML SYRINGE IVP PRN ×4 (04:24→23:11)
[2019-05-19] MEDS: methylPREDNISolone SOD SUCCI 125 MG/2 ML VIAL IV SCH ×4 (05:55→23:11)
[2019-05-19 08:11] LABS: Basophils % (A) 0 %; Eosinophils % (A) 0 %; HCT 37.2 % (34.0-46.0); HGB 12.1 gm/dL (11.4-16.0); Lymphocytes # (A) 0.4 k/uL (1.0-4.8); Lymphocytes % (A) 4 %; MCH 31.8 pg (25.0-35.0); MCHC 32.4 g/dL (31.0-37.0); MCV 98.2 fL (80.0-100.0); Mean Platelet Volume 8.5; Monocytes # (A) 0.3 k/uL (0-1.0); Monocytes % (A) 3 %; Neutrophils # (A) 8.1 k/uL (1.3-7.7); Neutrophils % (A) 92 %; Platelet Count 144 k/uL (150-450); RBC 3.79 m/uL (3.80-5.40); RDW 13.6 % (11.5-15.5); WBC 8.8 k/uL (3.8-10.6)
[2019-05-19 08:22] LABS: Calcium 8.9 mg/dL (8.4-10.2); Potassium 4.3 mmol/L (3.5-5.1)
[2019-05-19] MEDS: BENZTROPINE MESYLATE 1 MG TAB PO SCH ×2 (08:36→22:54)
[2019-05-19] MEDS: ARIPiprazole 10 MG TAB PO SCH (08:36)
[2019-05-19] MEDS: FAMOTIDINE 20 MG/2 ML VIAL IV SCH (09:54)
[2019-05-19] MEDS: SODIUM CHLORIDE 0.9% 1,000 ML IV SCH (13:15)
--- NOTE | 2019-05-19 13:42 | PN ---
PROGRESS NOTE DATE OF SERVICE: 05/19/2019 CHIEF COMPLAINT: Swelling in the throat, mouth associated with pain. HISTORY OF PRESENT ILLNESS: This lady's case is very difficult to figure out. She seems to be in quite a bit of discomfort. It is now wondered if there is another process going on. It sounds like it could be more in her throat. She does not seem to have a lot of swelling of the lips and tongue. Today the lower half of her face seems to be erythematous or injected. There is no sign of weeping and there are no blisters. Because of her mental incapacitation, she cannot give a history. PHYSICAL EXAM: She seems a little bit clammy. There is erythema from the cheeks on down into the neck. She will not open her mouth. Lymph nodes do not seem to be enlarged. IMPRESSION: 1. Pain and swelling in the tongue, throat and lips, etiology unknown. 2. Angioedema? PLAN: She is to be seen by ENT today. I will also request Infectious Disease consult and obtain various cultures. CT of the neck and chest has been negative. MMODL / IJN: [id number] /
[2019-05-19 18:13] LABS: Appearance,Urine Clear (Clear); Bilirubin,Urine Negative (Negative); Blood,Urine Negative (Negative); Color,Urine Yellow; Glucose,Urine (UA) Negative (Negative); Ketones,Urine Negative (Negative); Leukocyte Esterase,Urine Negative (Negative); Nitrite,Urine Negative (Negative); PH, Urine 6.5 (5.0-8.0); Protein,Urine Trace (Negative); Specific Gravity,Urine 1.022 (1.001-1.035); Urobilinogen,Urine <2.0 mg/dL (<2.0)
[2019-05-20] MEDS: diphenhydrAMINE 50 MG/ML 1 ML VIAL IVP SCH ×6 (03:11→23:54)
[2019-05-20] MEDS: HYDROmorphone 0.5 MG/0.5 ML SYRINGE IVP PRN ×5 (03:12→21:10)
[2019-05-20] MEDS: SODIUM CHLORIDE 0.9% 1,000 ML IV SCH ×4 (03:23→21:10)
[2019-05-20] MEDS: methylPREDNISolone SOD SUCCI 125 MG/2 ML VIAL IV SCH ×3 (06:18→17:21)
[2019-05-20] MEDS: ARIPiprazole 10 MG TAB PO SCH (07:39)
[2019-05-20] MEDS: BENZTROPINE MESYLATE 1 MG TAB PO SCH ×2 (07:39→21:10)
[2019-05-20] MEDS: FAMOTIDINE 20 MG/2 ML VIAL IV SCH (12:54)
[2019-05-20] MEDS: AMPICILLIN-SULBACTAM 3 GM in SODIUM CHLORIDE 0.9% 100 ML IVPB SCH ×3 (13:50→23:54)
--- NOTE | 2019-05-20 13:57 | P.GSCN ---
History of Present Illness Consult date: 05/20/19 Reason for Consult: Rule out dental origin of difficulty swallowing Requesting physician: Gian Dillon History of present illness: History obtained from nursing staff and notes. Patient is 59-year-old nonverbal history of mental illness. Patient presented to the emergency room with difficulty swallowing and eating. She does have a history of angioedema tongue swelling which has responded in the past to steroids. The patient does have a dental visit scheduled to have some work done but the work that to be done is unclear. Oral surgery was consulted to rule out a dental source for the swelling and difficulty in eating. 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 Past Psychological History: Bipolar, Depression Smoking Status: Never smoker Past Alcohol Use History: None Reported Past Drug Use History: None Reported - Past Family History Mother Family Medical History: Unable to Obtain Medications and Allergies Home Medications Medication Instructions Recorded Confirmed Type Calcium Carbonate 500 mg PO BID@0700,1600 09/15/18 05/17/19 History Fiber Powder 1 tbsp PO DAILY@199909/15/18 05/17/19 History Ipratropium-Albuterol Nebulize 3 ml INHALATION RT-QID PRN 09/15/18 05/17/19 History [Duoneb 0.5 mg-3 mg/3 ml Soln] Multivits,Th W-Ca,Fe,Oth Min 1 tab PO DAILY@0700 09/15/18 05/17/19 History [Therapeutic M] Potassium Chloride ER [K-Dur 20] 20 meq PO DAILY@0700 09/15/18 05/17/19 History clonazePAM [KlonoPIN] 1 mg PO BID@0700,1200 09/15/18 05/17/19 History Benztropine Mesylate [Cogentin] 1 mg PO BID@699,199905/11/19 05/17/19 History Fluticasone Nasal [place] [Flonase 2 spr EA NOSTRIL DAILY@69905/11/19 05/17/19 History Nasal [place]] Loratadine [Claritin] 10 mg PO DAILY@69905/11/19 05/17/19 History ARIPiprazole [Abilify] 10 mg PO DAILY@69905/17/19 05/17/19 History Budesonide [Pulmicort] 0.5 mg INHALATION DAILY PRN 05/17/19 05/17/19 History Polyethylene Glycol 3350 [Miralax] 17 gm PO BID@699,199905/17/19 05/17/19 History Allergies Allergy/AdvReac Type Severity Reaction Status Date / Time lithium Allergy Unknown Verified 05/17/19 23:11 topiramate [From Topamax] Allergy Unknown Verified 05/17/19 23:11 Surgical - Exam Vital Signs Temp Pulse Resp BP Pulse Ox 97.6 F 98 16 151/85 94 L 05/17/19 22:41 05/17/19 22:41 05/17/19 22:41 05/17/19 22:41 05/17/19 22:41 Patient is lying in bed eating her lunch. She was uncooperative for exam but was able to run my finger in her vestibule of the upper and lower jaw didn't feel any swelling. Her teeth appear to have some dental restorations but otherwise are in good repair no obvious broken teeth were dental caries. No neck swelling was noted and the patient can open her mouth greater than 35 mm. Patient does have a large tongue but is difficult to tell if this is her normal or if there is some tongue swelling. No airway embarrassment noted no drooling noted no floor of mouth swelling. All structures intraorally appeared symmetrical bilaterally. After the exam the patient did hold her lower jaw and appear to be in some distress and the nurse reported that this is what she has been doing since her admission. After I left the room and returned the patient was eating again. The nurse did report that the patient spit up her food so it's unclear how much she was able to ingested. But she didn't seem to have any problem with the actual mechanics of chewing swallowing in my presence. - General well developed, moderate distress - Eyes PERRL Results - Labs 05/19/19 07:24 05/19/19 07:24 Abnormal Lab Results - Last 24 Hours (Table) 05/19/19 Range/Units 17:45 Urine Protein Trace H (Negative) Microbiology - Last 24 Hours (Table) 05/18/19 19:15 Blood Culture - Preliminary Blood No Growth after 24 hours 05/18/19 19:01 Blood Culture - Preliminary Blood No Growth after 24 hours - Imaging Additional studies: CT soft tissue neck was reviewed and no abscess is noted. A reconstructed panoramic image was obtained from the CT soft tissue neck although I suspect there was contrast. This did not show any obvious abscesses or dental decay but the quality was limited. Assessment and Plan Assessment: There does not appear to be a dental reason for her difficulty in the swallowing. Her acute distress reported with grasping of the jaw may be related to pain in her throat or it may be a neurogenic problem. Plan: Patient does have a treatment plan with her dentist in [place]. The final plan of that is unclear at this time and the dentist does not available currently. I recommend the patient continue to follow up with her dentist. Also available to see me as an outpatient upon discharge on an as-needed basis Time with Patient: Greater than 30 (Very difficult exam with multiple visits to and from before and after lunch)
--- NOTE | 2019-05-20 16:32 | PN ---
PROGRESS NOTE CHIEF COMPLAINT: Pain and swelling in the oral cavity. HISTORY OF PRESENT ILLNESS: This lady is very difficult to evaluate. She was seen by ear, nose, and throat and they feel that they have nothing to offer. She is clearly in pain, although she cannot express it well. She keeps crying and holding her jaw. PHYSICAL EXAM: Vital signs are normal. There is no significant swelling or tenderness in the neck or the. JAW. IMPRESSION: Pain, swelling in the oral cavity and throat, etiology unknown. PLAN: Try referral to oral surgery and continue to monitor her clinical symptoms and vital signs. MMODL / IJN: [id number] /
--- NOTE | 2019-05-20 17:04 | P.CONS ---
History of Present Illness - Reason for Consult Consult date: 05/20/19 - Chief Complaint Swelling - History of Present Illness 59-year-old female presents to Hospital shortly after being admitted to hospital for a similar problem. Is related the patient is having difficulties with swelling of the tongue especially lower lip lower area and lower part of the mouth. The patient is nonverbal and not cooperative. She's been seen by oral surgery. Imaging studies have been performed. The patient provides no history. 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 Past Psychological History: Bipolar, Depression Smoking Status: Never smoker Past Alcohol Use History: None Reported Past Drug Use History: None Reported - Past Family History Mother Family Medical History: Unable to Obtain Medications and Allergies Home Medications and Allergies Comment(s): Current Medications Aripiprazole (Abilify) 10 mg PO DAILY@0700 [facility] Last Admin: 05/20/19 07:39 Dose: 10 mg Documented by: Benztropine Mesylate (Cogentin) 1 mg PO BID@0700,2000 [facility] Last Admin: 05/20/19 07:39 Dose: 1 mg Documented by: Diphenhydramine HCl (Benadryl) 25 mg IVP Q4HR [facility] Last Admin: 05/20/19 12:56 Dose: 25 mg Documented by: Famotidine (Pepcid) 20 mg IV DAILY [facility] Last Admin: 05/20/19 12:54 Dose: 20 mg Documented by: Hydromorphone HCl (Dilaudid) 0.5 mg IVP Q4HR PRN PRN Reason: Pain Last Admin: 05/20/19 12:53 Dose: 0.5 mg Documented by: Sodium Chloride (Saline 0.9%) 1,000 mls @ 100 mls/hr IV .Q10H [facility] Last Admin: 05/20/19 12:56 Dose: 100 mls/hr Documented by: Ampicillin Sodium/Sulbactam (Sodium 3 gm/ Sodium Chloride) 100 mls @ 200 mls/hr IVPB Q6HR [facility] Last Admin: 05/20/19 13:50 Dose: 200 mls/hr Documented by: Methylprednisolone Sodium Succinate (Solu-Medrol) 40 mg IV Q6HR [facility] Last Admin: 05/20/19 13:41 Dose: 40 mg Documented by: Naloxone HCl (Narcan) 0.2 mg IV Q2M PRN PRN Reason: Opioid Reversal Home Medications Medication Instructions Recorded Confirmed Type Calcium Carbonate 500 mg PO BID@0700,1600 09/15/18 05/17/19 History Fiber Powder 1 tbsp PO DAILY@199909/15/18 05/17/19 History Ipratropium-Albuterol Nebulize 3 ml INHALATION RT-QID PRN 09/15/18 05/17/19 History [Duoneb 0.5 mg-3 mg/3 ml Soln] Multivits,Th W-Ca,Fe,Oth Min 1 tab PO DAILY@0700 09/15/18 05/17/19 History [Therapeutic M] Potassium Chloride ER [K-Dur 20] 20 meq PO DAILY@0709/15/18 05/17/19 History clonazePAM [KlonoPIN] 1 mg PO BID@0700,1200 09/15/18 05/17/19 History Benztropine Mesylate [Cogentin] 1 mg PO BID@699,199905/11/19 05/17/19 History Fluticasone Nasal [place] [Flonase 2 spr EA NOSTRIL DAILY@69905/11/19 05/17/19 History Nasal [place]] Loratadine [Claritin] 10 mg PO DAILY@69905/11/19 05/17/19 History ARIPiprazole [Abilify] 10 mg PO DAILY@69905/17/19 05/17/19 History Budesonide [Pulmicort] 0.5 mg INHALATION DAILY PRN 05/17/19 05/17/19 History Polyethylene Glycol 3350 [Miralax] 17 gm PO BID@07,199905/17/19 05/17/19 History Allergies Allergy/AdvReac Type Severity Reaction Status Date / Time lithium Allergy Unknown Verified 05/17/19 23:11 topiramate [From Topamax] Allergy Unknown Verified 05/17/19 23:11 Physical Exam Vitals: Vital Signs Temp Pulse Resp BP Pulse Ox 05/20/19 16:20 87 19 05/20/19 11:57 99.1 F 87 19 161/87 95 05/20/19 08:30 102 H 16 05/20/19 04:49 98.2 F 102 H 16 144/82 91 L 05/19/19 20:53 98.3 F 65 20 146/69 93 L Intake and Output 05/20/19 05/20/19 05/20/19 06:59 14:59 22:59 Intake Total 590 0 Balance 590 0 Intake: Oral 590 0 Other: Voiding Method Toilet Toilet Toilet # Voids 6 3 3 # Bowel Movements 1 1 HEENT: Conjunctiva are pink nasal mucosa is intact without bleeding the patient does not cooperate for any visualization of the oral cavity. She has evidence of swelling to the lower lip as well as to the tissue down onto the chin with some erythema. She has her hand clenched onto her face which eventually she does remove when requested multiple times. There is evidence of some edema of the area and the imprints from her fingers are noted on the tissue. The erythema does not track onto the neck. No lymphadenopathy is palpable at this time. No vesicles or open ulcerations are seen. Neck: The neck is supple without significant lymphadenopathy or thyromegaly. Lungs: Good bilateral air entry without significant crackles or wheezing. There is no significant bronchial sounds. There is no egophony or dullness. Heart: Regular rate and rhythm with an audible S1-S2, no S3 no S4. There is no significant murmur click or rub, PMI was nondisplaced. Abdomen: Positive bowel sounds soft and nontender without palpable masses or organomegaly. There was no guarding or rebound. Extremities: The upper extremities have excellent pulses they are symmetric, no significant petechiae or telangiectasia. No splinter hemorrhages were noted. The lower extremities are free from significant edema. The peripheral pulses were 2+ and symmetric. Neuro: Awake noncommunicative Results CBC & Chem 7: 05/19/19 07:24 05/19/19 07:24 Labs: Abnormal Lab Results - Last 24 Hours (Table) 05/19/19 Range/Units 17:45 Urine Protein Trace H (Negative) Microbiology - Last 24 Hours (Table) 05/18/19 19:15 Blood Culture - Preliminary Blood No Growth after 24 hours 05/18/19 19:01 Blood Culture - Preliminary Blood No Growth after 24 hours Laboratory Results WBC 8.8 k/uL (3.8-10.6) 05/19/19 07:24 RBC 3.79 m/uL (3.80-5.40) L 05/19/19 07:24 Hgb 12.1 gm/dL (11.4-16.0) 05/19/19 07:24 Hct 37.2 % (34.0-46.0) 05/19/19 07:24 MCV 98.2 fL (80.0-100.0) 05/19/19 07:24 MCH 31.8 pg (25.0-35.0) 05/19/19 07:24 MCHC 32.4 g/dL (31.0-37.0) 05/19/19 07:24 RDW 13.6 % (11.5-15.5) 05/19/19 07:24 Plt Count 144 k/uL (150-450) L 05/19/19 07:24 Neutrophils % 92 % 05/19/19 07:24 Lymphocytes % 4 % 05/19/19 07:24 Monocytes % 3 % 05/19/19 07:24 Eosinophils % 0 % 05/19/19 07:24 Basophils % 0 % 05/19/19 07:24 Neutrophils # 8.1 k/uL (1.3-7.7) H 05/19/19 07:24 Lymphocytes # 0.4 k/uL (1.0-4.8) L 05/19/19 07:24 Monocytes # 0.3 k/uL (0-1.0) 05/19/19 07:24 Eosinophils # 0.0 k/uL (0-0.7) 05/19/19 07:24 Basophils # 0.0 k/uL (0-0.2) 05/19/19 07:24 Sodium 141 mmol/L (137-145) 05/19/19 07:24 Potassium 4.3 mmol/L (3.5-5.1) 05/19/19 07:24 Chloride 108 mmol/L (98-107) H 05/19/19 07:24 Carbon Dioxide 24 mmol/L (22-30) 05/19/19 07:24 Anion Gap 9 mmol/L 05/19/19 07:24 BUN 24 mg/dL (7-17) H 05/19/19 07:24 Creatinine 0.93 mg/dL (0.52-1.04) 05/19/19 07:24 Est GFR (CKD-EPI)AfAm 78 (>60 ml/min/1.73 sqM) 05/19/19 07:24 Est GFR (CKD-EPI)NonAf 68 (>60 ml/min/1.73 sqM) 05/19/19 07:24 Glucose 136 mg/dL (74-99) H 05/19/19 07:24 Plasma Lactic Acid Dinesh 1.1 mmol/L (0.7-2.0) 05/18/19 19:01 Calcium 8.9 mg/dL (8.4-10.2) 05/19/19 07:24 Total Bilirubin 0.4 mg/dL (0.2-1.3) 05/18/19 19:01 AST 26 U/L (14-36) 05/18/19 19:01 ALT 35 U/L (9-52) 05/18/19 19:01 Alkaline Phosphatase 100 U/L (38-126) 05/18/19 19:01 Total Protein 7.5 g/dL (6.3-8.2) 05/18/19 19:01 Albumin 4.2 g/dL (3.5-5.0) 05/18/19 19:01 Urine Color Yellow 05/19/19 17:45 Urine Appearance Clear (Clear) 05/19/19 17:45 Urine pH 6.5 (5.0-8.0) 05/19/19 17:45 Ur Specific [place] 1.022 (1.001-1.035) 05/19/19 17:45 Urine Protein Trace (Negative) H 05/19/19 17:45 Urine Glucose (UA) Negative (Negative) 05/19/19 17:45 Urine Ketones Negative (Negative) 05/19/19 17:45 Urine Blood Negative (Negative) 05/19/19 17:45 Urine Nitrite Negative (Negative) 05/19/19 17:45 Urine Bilirubin Negative (Negative) 05/19/19 17:45 Urine Urobilinogen <2.0 mg/dL (<2.0) 05/19/19 17:45 Ur Leukocyte Esterase Negative (Negative) 05/19/19 17:45 Blood Type A Positive 05/18/19 02:56 Blood Type Confirm A Positive 05/17/19 23:16 Blood Type Recheck CABO Indicated 05/18/19 02:56 Antibody Screen NEGATIVE 05/18/19 02:56 Spec Expiration Date 05/21/2019 - 2356 05/18/19 02:56 Microbiology 05/18/19 19:15 Blood Blood Culture - Preliminary No Growth after 24 hours 05/18/19 19:01 Blood Blood Culture - Preliminary No Growth after 24 hours Assessment and Plan (1) Angioedema Narrative/Plan: 59-year-old woman who is noncommunicative has evidence of swelling to the lower lip, the chin and reportedly to the lower part of the oral cavity and somewhat to the tongue. The patient is able to swallow and there is evidence of any saliva flowing out of the oral cavity. She's laying relatively supine and does not appear to be choking. She has even nonlabored respirations. It is noted that she was just hospitalized in some medication changes occurred but she said maybe having some difficulties. It is related that she responded well to some steroid therapy. She has been initiated some antibiotic therapy at this time with Unasyn if there is an oral infection. No evidence of any drainable abscess is noted by computed tomography scan and she has been seen by oral surgery. If she is having ongoing difficulties with angioedema appears to need an ALLERGY evaluation. Oral herpes simplex 1 could potentially cause this type of issue and acyclovir will be offered. The patient is keeping her hand clenched onto her lower jaw, unclear if this is a response to the swelling or is related to the problem. Current Visit: Yes Status: Acute Code(s): T78.3XXA - ANGIONEUROTIC EDEMA, INITIAL ENCOUNTER SNOMED Code(s): 58822262
--- NOTE | 2019-05-20 17:26 | CONS ---
CONSULTATION DATE OF ADMISSION: 05/19/2019 DATE OF CONSULTATION: 05/20/2019 REASON FOR CONSULTATION: Angioedema of the tongue. CONSULTING PHYSICIAN: Dr. Vicente Goins HISTORY OF PRESENT ILLNESS: This patient is a non-verbal 59-year-old female who was admitted to [facility] via the emergency room for evaluation of possible swelling of the tongue and difficulty swallowing. The information gleaned about this patient was from the patient's caregiver because the patient is essentially non-verbal. At the time of her admission, the emergency room physician felt that she did in fact have swelling of the tongue. She apparently has had several previous admissions for this and has received intravenous steroids and the issue has resolved. Therefore, it was elected to admit her and she was started on intravenous steroids. At the time of my visit to see the patient, again, the patient is completely non-verbal, and there are no family members or caregiver around for any historical information. Therefore, the historical information is obtained from the patient's nurse and from the chart. The patient appears to be in no acute distress at this time and appears to be handling her secretions quite well. That is to say, she does not appear to be having any acute difficulty swallowing. She does tend to grab her jaw, but it does not appear that it is because of pain. When questioned whether or not she would like to eat, the patient nods her head in the affirmative. When questioned regarding whether or not she is having any pain in her throat or mouth, this does not elicit any significant response. The patient is semi-cooperative and will open her mouth when asked. PAST MEDICAL HISTORY: Past medical history reveals the patient has an allergy to LITHIUM AND TO TOPIRAMATE. Current home medications include Klonopin, K-Dur, Miralax, Claritin, Flonase, albuterol, DuoNeb, Pulmicort, Cogentin and Abilify. REVIEW OF SYSTEMS: Review of systems is positive with respect to the respiratory system as the patient is a known asthmatic. The remainder review of systems is unremarkable. PHYSICAL EXAMINATION: This patient is a 59-year-old female who is alert, non-verbal, semi cooperative, and is in no acute distress. The patient is not drooling nor is she having any difficulty breathing. She also appears to be swallowing and handling her secretions satisfactorily. Upon command, she will open her mouth. HEENT examination: Patient is normocephalic. Tympanic membranes normal. Middle ear space is free of any fluid or infection. Pupils equal, round, react to light and accommodation. Extraocular movements within normal limits. Intranasal examination reveals moderate septal deviation with compensatory hypertrophy of inferior turbinates and a moderate amount of mucus on the mucous membrane draining down posterior pharynx. Limited examination of the oropharynx reveals that at this point there is no evidence of any obvious swelling of the tongue/angioedema(probably because of the IV steroids received). She appears to have normal dentition, that is to say, I do not see any obvious carious teeth or heavy plaque buildup on the teeth. In addition to this, I do not see any obvious inflammation of the gum to suggest any type of abscess. It is possible that the patient grabs her jaw more as a mannerism related to her mental status as opposed to indication of any type of pain or discomfort. Certainly, palpation of the neck and face does not elicit any obvious signs of discomfort from this patient.The remainder of the the head and neck exam is unremarkable. Chest, cardiovascular: both lung [place] are clear to percussion and auscultation. There is no wheezes, rales, or rhonchi. The patient is in regular sinus rhythm S1, S2 are present. No murmurs, S3s or S4s. Remainder of physical exam is unremarkable. IMPRESSION:Resolved angioedema of the tongue. I doubt that this patient has any significant angioedema anymore, possibly because of the intravenous steroids that she has received. In addition, I feel that the patient is probably quite hungry and would benefit from at least trying her on clear liquids with a nurse standing by to see if she does have any issues with swallowing or aspiration. Certainly, if she does not have any issues then it would be okay, I feel, to advance the patient's diet. With respect to any actual swallowing difficulty, certainly this patient would have to either have a barium swallow or she would have to undergo a flexible endoscopy done under IV sedation or general anesthesia. I do not feel that either one of those is indicated at this point, especially since the patient seems to have responded on each of the previous occasions to simple intravenous steroid therapy. Therefore, I feel it would be best to keep it simple and if you would like, then certainly a consultation with oral surgery could eliminate any type of problems with the patient's dentition. At this point, I do not have anything to add to her current treatment and feel that she could be discharged at any time that the primary care doctor feels that it is okay. I do not need to see the patient on followup and I suspect she will probably have these issues arise again in the future and most likely they will resolve with simple intravenous steroid therapy. The etiology of her symptom is unknown. It is unfortunate that there were no family members or caregiver around to provide any additional historical data on this patient at the time of my visit. I want to take this opportunity to thank you for allowing me to assist you in the care of your patient. If I can be of any further assistance, please feel free to call my office. JAIME / JOVANI: [id number] / DASIA
[2019-05-20] MEDS: ACYCLOVIR SODIUM 500 MG in SODIUM CHLORIDE 0.9% 100 ML IVPB SCH (18:27)
[2019-05-21] MEDS: HYDROmorphone 0.5 MG/0.5 ML SYRINGE IVP PRN ×5 (00:46→19:49)
[2019-05-21] MEDS: ACYCLOVIR SODIUM 500 MG in SODIUM CHLORIDE 0.9% 100 ML IVPB SCH ×3 (01:57→17:31)
[2019-05-21] MEDS: diphenhydrAMINE 50 MG/ML 1 ML VIAL IVP SCH ×5 (03:55→19:49)
[2019-05-21] MEDS: methylPREDNISolone SOD SUCCI 125 MG/2 ML VIAL IV SCH ×4 (05:14→17:52)
[2019-05-21] MEDS: SODIUM CHLORIDE 0.9% 1,000 ML IV SCH ×2 (05:14→17:31)
[2019-05-21] MEDS: AMPICILLIN-SULBACTAM 3 GM in SODIUM CHLORIDE 0.9% 100 ML IVPB SCH ×3 (05:14→17:52)
[2019-05-21] MEDS: ARIPiprazole 10 MG TAB PO SCH (10:23)
[2019-05-21] MEDS: BENZTROPINE MESYLATE 1 MG TAB PO SCH ×2 (10:23→19:49)
[2019-05-21] MEDS: FAMOTIDINE 20 MG/2 ML VIAL IV SCH (10:27)
--- NOTE | 2019-05-21 19:08 | PN ---
PROGRESS NOTE DATE OF SERVICE: 05/21/19 CHIEF COMPLAINT: Presumed persistence of oral and throat pain. HISTORY OF PRESENT ILLNESS: This lady continues to apparently have discomfort in the oral cavity and throat. She has been seen by ENT and now Oral Surgery. No one has been able to identify the etiology of her problems. She is now on antibiotics. She is probably going to come to an examination under anesthesia, which should probably be coordinated between ENT and oral surgery. PHYSICAL EXAM: When she is awake, she continues to hold her jaw and is probably expressing pain. Chest is clear. Cardiac exam is normal. Lymph nodes are not enlarged. IMPRESSION: Persistent pain in the throat, neck and oral cavity, etiology unknown. PLAN: Probably examination under anesthesia will be the next step. MMODL / IJN: [id number] /
[2019-05-22] MEDS: AMPICILLIN-SULBACTAM 3 GM in SODIUM CHLORIDE 0.9% 100 ML IVPB SCH ×5 (00:02→23:03)
[2019-05-22] MEDS: methylPREDNISolone SOD SUCCI 125 MG/2 ML VIAL IV SCH ×5 (00:03→23:03)
[2019-05-22] MEDS: diphenhydrAMINE 50 MG/ML 1 ML VIAL IVP SCH ×7 (00:03→22:59)
[2019-05-22] MEDS: HYDROmorphone 0.5 MG/0.5 ML SYRINGE IVP PRN (00:03)
[2019-05-22] MEDS: SODIUM CHLORIDE 0.9% 1,000 ML IV SCH ×3 (01:40→23:06)
[2019-05-22] MEDS: ACYCLOVIR SODIUM 500 MG in SODIUM CHLORIDE 0.9% 100 ML IVPB SCH ×3 (01:40→20:51)
[2019-05-22] MEDS: BENZTROPINE MESYLATE 1 MG TAB PO SCH ×2 (08:40→20:51)
[2019-05-22] MEDS: ARIPiprazole 10 MG TAB PO SCH (08:41)
[2019-05-22] MEDS: FAMOTIDINE 20 MG/2 ML VIAL IV SCH (08:41)
--- NOTE | 2019-05-22 18:36 | P.PN ---
Progress Note - Text Progress Note Date: 05/22/19 Patient up in bed with attendance at bedside no acute distress noted still uncooperative for exam. Per report patient is doing much better has not been holding her face or appears in distress. Tolerating orals well. Of contacted her dentist in [place] and they had her scheduled for a cleaning. Reviewed the x-rays they had taken which were. Typical x-rays of questionable quality but on those x-rays no obvious decay noted. Due to the patient's improvement on acyclovir and Unasyn suspect most likely a herpetic cause. Bacterial pulpitis of the tooth would still be possible and has responded to the Unasyn. Recommended discharged an appropriate course of oral antibiotics and follow-up in my office for a panoramic x-ray.
--- NOTE | 2019-05-22 20:00 | PN ---
PROGRESS NOTE CHIEF COMPLAINT: Apparent pain in the throat and oral cavity. HISTORY OF PRESENT ILLNESS: This lady's case becomes more and more complex and difficult. She has been seen by ENT and Oral Surgery now. Consultants are limited by inability to perform any kind of exam. The patient remains afebrile. The next thing that would have to be considered and which is probably appropriate would be an examination under anesthesia. She will be referred back to the ENT for their consideration. Physical exam is unchanged. She is not febrile. She continues to seem to complain of pain in the jaw and neck. When she eats, she seems to be quite uncomfortable when she swallows. IMPRESSION: Persistent pain in the throat, jaw and/or oral cavity with no apparent etiology. PLAN: Reconsult ENT to see if they would consider an examination under anesthesia. MMODL / IJN: [id number] /
[2019-05-23] MEDS: diphenhydrAMINE 50 MG/ML 1 ML VIAL IVP SCH ×3 (03:10→13:07)
[2019-05-23] MEDS: AMPICILLIN-SULBACTAM 3 GM in SODIUM CHLORIDE 0.9% 100 ML IVPB SCH ×3 (05:40→17:29)
[2019-05-23] MEDS: methylPREDNISolone SOD SUCCI 125 MG/2 ML VIAL IV SCH ×3 (05:40→17:29)
[2019-05-23] MEDS: ARIPiprazole 10 MG TAB PO SCH (07:55)
[2019-05-23] MEDS: FAMOTIDINE 20 MG/2 ML VIAL IV SCH (07:55)
[2019-05-23] MEDS: BENZTROPINE MESYLATE 1 MG TAB PO SCH ×2 (07:55→21:21)
[2019-05-23] MEDS: ACYCLOVIR SODIUM 500 MG in SODIUM CHLORIDE 0.9% 100 ML IVPB SCH ×2 (07:59→21:20)
[2019-05-23] MEDS: SODIUM CHLORIDE 0.9% 1,000 ML IV SCH ×2 (14:07→21:27)
--- NOTE | 2019-05-23 19:00 | PN ---
PROGRESS NOTE DATE OF SERVICE: 05/23/2019 CHIEF COMPLAINT: Persistent pain and dysphagia. HISTORY OF PRESENT ILLNESS: Apparently this lady is complaining less of pain since she has been started on acyclovir. This would make one wonder if she has herpes stomatitis, pharyngitis. PHYSICAL EXAMINATION: She seems more comfortable. She is very difficult to assess due to her mental incapacitation. IMPRESSION: Stomatitis and pharyngitis, etiology unknown. PLAN: If she continues to do well on the antiviral, we will try sending her home tomorrow. MMODL / IJN: [id number] /
[2019-05-23] MEDS: HYDROmorphone 0.5 MG/0.5 ML SYRINGE IVP PRN (21:21)
[2019-05-23] MEDS: clonazePAM 1 MG TAB PO SCH (21:52)
[2019-05-23] MEDS: amLODIPine 5 MG TAB PO SCH (21:52)
[2019-05-24] MEDS: methylPREDNISolone SOD SUCCI 125 MG/2 ML VIAL IV SCH ×4 (00:53→18:02)
[2019-05-24] MEDS: AMPICILLIN-SULBACTAM 3 GM in SODIUM CHLORIDE 0.9% 100 ML IVPB SCH ×4 (00:53→18:04)
[2019-05-24] MEDS: SODIUM CHLORIDE 0.9% 1,000 ML IV SCH ×2 (03:54→16:12)
[2019-05-24] MEDS ORDERED: clonazePAM 1 MG TAB PO SCH (07:00)
[2019-05-24] MEDS: clonazePAM 1 MG TAB PO SCH ×2 (07:43→12:40)
[2019-05-24] MEDS: BENZTROPINE MESYLATE 1 MG TAB PO SCH ×2 (07:43→20:14)
[2019-05-24] MEDS: ARIPiprazole 10 MG TAB PO SCH (07:43)
[2019-05-24] MEDS: FAMOTIDINE 20 MG/2 ML VIAL IV SCH (07:44)
[2019-05-24] MEDS: amLODIPine 5 MG TAB PO SCH (07:44)
[2019-05-24] MEDS: ACYCLOVIR SODIUM 500 MG in SODIUM CHLORIDE 0.9% 100 ML IVPB SCH ×2 (07:44→20:14)
[2019-05-24] MEDS: LOSARTAN 50 MG TAB PO SCH (12:40)
--- NOTE | 2019-05-24 19:38 | PN ---
PROGRESS NOTE DATE OF SERVICE: 05/24/2019 CHIEF COMPLAINT: Stomatitis and pharyngitis. HISTORY OF PRESENT ILLNESS: This lady seems to be doing better. Does not seem to be complaining of pain in the oral cavity and throat which may be attributed to her antiviral. However, her blood pressure has gone up and before she is discharged, this will be brought back down. PHYSICAL EXAMINATION: Chest is clear. Cardiac exam is normal and her mouth cannot be examined. IMPRESSION: 1. Uncontrolled blood pressure. 2. Mental incapacity. 3. Probable viral stomatitis and pharyngitis. PLAN: Manage hypertension before she is discharged, which could probably be tomorrow. MMODL / IJN: [id number] /
--- NOTE | 2019-05-24 21:35 | P.PN ---
Subjective Progress Note Date: 05/24/19 59-year-old female presents to Hospital shortly after being admitted to hospital for a similar problem. Is related the patient is having difficulties with swelling of the tongue especially lower lip lower area and lower part of the mouth. The patient is nonverbal and not cooperative. She's been seen by oral surgery. Imaging studies have been performed. The patient provides no history. 05/24/2019 the patient is now awake, alert and animated. She waves to me as I walk into the room. She does talk but her speech is not intelligible. She is comfortable and has been playing with the stuffed animal on her lap. Clinical Research Analyst who was present relates that she has been eating without difficulties. Drinking without difficulties. She seems to be completely comfortable and no longer is covering her mouth or holding her job as she was. Objective - Vital Signs Vital signs: Vital Signs Temp 98.5 F 05/24/19 12:47 Pulse 91 05/24/19 12:47 Resp 20 05/24/19 12:47 BP 157/74 05/24/19 12:47 Pulse Ox 97 05/24/19 12:47 Intake & Output 05/24/19 05/24/19 05/25/19 06:59 18:59 06:59 Intake Total 990 800 Balance 990 800 Intake: Intake, IV Titration 200 200 Amount Acyclovir Sodium 500 mg 100 100 In Sodium Chloride 0.9% 100 ml @ 100 mls/hr IVPB Q12HR MARIYA Rx#:[id number] Ampicillin-Sulbactam 3 gm 100 100 In Sodium Chloride 0.9% 100 ml @ 200 mls/hr IVPB Q6HR MARIYA Rx#:[id number] Oral 790 600 Other: Voiding Method Toilet Toilet # Voids 1 2 # Bowel Movements 1 - Exam HEENT: Conjunctiva are pink nasal mucosa is intact without bleeding the patient is now awake and interactive and quite happy. She easily opens her mouth to the examiner today. No sleeping lesions can be seen. The swelling to the tongue and lips seems to be resolved. There is no swelling to the lower lip. She's no longer guarding or protecting her face with her hands as she was. No lymphadenopathy is palpable at this time. No vesicles or open ulcerations are seen. Neck: The neck is supple without significant lymphadenopathy or thyromegaly. Lungs: Good bilateral air entry without significant crackles or wheezing. There is no significant bronchial sounds. There is no egophony or dullness. Heart: Regular rate and rhythm with an audible S1-S2, no S3 no S4. There is no significant murmur click or rub, PMI was nondisplaced. Abdomen: Positive bowel sounds soft and nontender without palpable masses or organomegaly. There was no guarding or rebound. Extremities: The upper extremities have excellent pulses they are symmetric, no significant petechiae or telangiectasia. No splinter hemorrhages were noted. The lower extremities are free from significant edema. The peripheral pulses were 2+ and symmetric. Neuro: Awake she has now animated appears to be happy not in pain. When he sitting observer as I walk into the room. And has a babbling speech pattern is not intelligible but patient smiles and seems to be happy. - Labs CBC & Chem 7: 05/19/19 07:24 05/19/19 07:24 Labs: Microbiology - Last 24 Hours (Table) 05/19/19 17:27 Blood Culture - Preliminary Blood No Growth after 120 hours 05/19/19 16:59 Blood Culture - Preliminary Blood No Growth after 120 hours 05/18/19 19:15 Blood Culture - Preliminary Blood No Growth after 120 hours 05/18/19 19:01 Blood Culture - Preliminary Blood No Growth after 120 hours Laboratory Results WBC 8.8 k/uL (3.8-10.6) 05/19/19 07:24 RBC 3.79 m/uL (3.80-5.40) L 05/19/19 07:24 Hgb 12.1 gm/dL (11.4-16.0) 05/19/19 07:24 Hct 37.2 % (34.0-46.0) 05/19/19 07:24 MCV 98.2 fL (80.0-100.0) 05/19/19 07:24 MCH 31.8 pg (25.0-35.0) 05/19/19 07:24 MCHC 32.4 g/dL (31.0-37.0) 05/19/19 07:24 RDW 13.6 % (11.5-15.5) 05/19/19 07:24 Plt Count 144 k/uL (150-450) L 05/19/19 07:24 Neutrophils % 92 % 08/02/19 07:24 Lymphocytes % 4 % 05/19/19 07:24 Monocytes % 3 % 05/19/19 07:24 Eosinophils % 0 % 05/19/19 07:24 Basophils % 0 % 05/19/19 07:24 Neutrophils # 8.1 k/uL (1.3-7.7) H 05/19/19 07:24 Lymphocytes # 0.4 k/uL (1.0-4.8) L 05/19/19 07:24 Monocytes # 0.3 k/uL (0-1.0) 05/19/19 07:24 Eosinophils # 0.0 k/uL (0-0.7) 05/19/19 07:24 Basophils # 0.0 k/uL (0-0.2) 05/19/19 07:24 Sodium 141 mmol/L (137-145) 05/19/19 07:24 Potassium 4.3 mmol/L (3.5-5.1) 05/19/19 07:24 Chloride 108 mmol/L (98-107) H 05/19/19 07:24 Carbon Dioxide 24 mmol/L (22-30) 05/19/19 07:24 Anion Gap 9 mmol/L 05/19/19 07:24 BUN 24 mg/dL (7-17) H 05/19/19 07:24 Creatinine 0.93 mg/dL (0.52-1.04) 05/19/19 07:24 Est GFR (CKD-EPI)AfAm 78 (>60 ml/min/1.73 sqM) 05/19/19 07:24 Est GFR (CKD-EPI)NonAf 68 (>60 ml/min/1.73 sqM) 05/19/19 07:24 Glucose 136 mg/dL (74-99) H 05/19/19 07:24 Plasma Lactic Acid Dinesh 1.1 mmol/L (0.7-2.0) 05/18/19 19:01 Calcium 8.9 mg/dL (8.4-10.2) 05/19/19 07:24 Total Bilirubin 0.4 mg/dL (0.2-1.3) 05/18/19 19:01 AST 26 U/L (14-36) 05/18/19 19:01 ALT 35 U/L (9-52) 05/18/19 19:01 Alkaline Phosphatase 100 U/L (38-126) 05/18/19 19:01 Total Protein 7.5 g/dL (6.3-8.2) 05/18/19 19:01 Albumin 4.2 g/dL (3.5-5.0) 05/18/19 19:01 Urine Color Yellow 05/19/19 17:45 Urine Appearance Clear (Clear) 05/19/19 17:45 Urine pH 6.5 (5.0-8.0) 05/19/19 17:45 Ur Specific [place] 1.022 (1.001-1.035) 05/19/19 17:45 Urine Protein Trace (Negative) H 05/19/19 17:45 Urine Glucose (UA) Negative (Negative) 05/19/19 17:45 Urine Ketones Negative (Negative) 05/19/19 17:45 Urine Blood Negative (Negative) 05/19/19 17:45 Urine Nitrite Negative (Negative) 05/19/19 17:45 Urine Bilirubin Negative (Negative) 05/19/19 17:45 Urine Urobilinogen <2.0 mg/dL (<2.0) 05/19/19 17:45 Ur Leukocyte Esterase Negative (Negative) 05/19/19 17:45 HSV I&II IgM Ab 0.11 INDEX (<=0.90) 05/20/19 07:24 HSV I IgG Ab 0.4 AI 05/20/19 07:24 HSV I IgG Interpret NEGATIVE (NEGATIVE) 05/20/19 07:24 HSV II IgG <0.2 AI 05/20/19 07:24 HSV II IgG Interpret NEGATIVE (NEGATIVE) 05/20/19 07:24 Blood Type A Positive 05/18/19 02:56 Blood Type Confirm A Positive 05/17/19 23:16 Blood Type Recheck CABO Indicated 05/18/19 02:56 Antibody Screen NEGATIVE 05/18/19 02:56 Spec Expiration Date 05/21/2019 - 6909 05/18/19 02:56 Microbiology 05/19/19 17:27 Blood Blood Culture - Preliminary No Growth after 120 hours 05/19/19 16:59 Blood Blood Culture - Preliminary No Growth after 120 hours 05/18/19 19:15 Blood Blood Culture - Preliminary No Growth after 120 hours 05/18/19 19:01 Blood Blood Culture - Preliminary No Growth after 120 hours Assessment and Plan (1) Angioedema Narrative/Plan: 59-year-old woman who is noncommunicative has evidence of swelling to the lower lip, the chin and reportedly to the lower part of the oral cavity and somewhat to the tongue. The patient is able to swallow and there is evidence of any saliva flowing out of the oral cavity. She's laying relatively supine and does not appear to be choking. She has even nonlabored respirations. It is noted that she was just hospitalized in some medication changes occurred but she said maybe having some difficulties. It is related that she responded well to some steroid therapy. She has been initiated some antibiotic therapy at this time with Unasyn if there is an oral infection. No evidence of any drainable abscess is noted by computed tomography scan and she has been seen by oral surgery. If she is having ongoing difficulties with angioedema appears to need an ALLERGY evaluation. Oral herpes simplex 1 could potentially cause this type of issue and acyclovir will be offered. The patient is keeping her hand clenched onto her lower jaw, unclear if this is a response to the swelling or is related to the problem. 05/24/2019 the patient is now considerably improved. She is awake alert and happy. She smiles and waves. Is no longer covering and protecting her mouth as she was with her hands. The staff relates she is eating and drinking with no difficulties. This is been a significant improvement relatively short period of time. There is no evidence of any bacterial infection. An ALLERGIC reaction or angioedema process from underlying viral infection or other toxins is of concern. With steroid therapy and antiviral therapy she's had a marked improvement. There is notation that she is getting ready for discharge to home. Would complete a somewhat rapid taper of steroids and a full 10 day course of antiviral therapy. The herpetic antibodies are negative. Ideally would be repeated a two-week esme determine if there is been a seroconversion which would verify the acute herpetic stomatitis diagnosis. Current Visit: Yes Status: Acute Code(s): T78.3XXA - ANGIONEUROTIC EDEMA, INITIAL ENCOUNTER SNOMED Code(s): 11983762
[2019-05-25] MEDS: methylPREDNISolone SOD SUCCI 125 MG/2 ML VIAL IV SCH ×3 (01:22→12:54)
[2019-05-25] MEDS: AMPICILLIN-SULBACTAM 3 GM in SODIUM CHLORIDE 0.9% 100 ML IVPB SCH ×3 (01:22→12:53)
[2019-05-25] MEDS: SODIUM CHLORIDE 0.9% 1,000 ML IV SCH ×2 (02:00→12:44)
[2019-05-25 05:13] VITALS: BP 129/77; PULSE 63; RESP 16; TEMP 97.5
[2019-05-25] MEDS: LOSARTAN 50 MG TAB PO SCH (08:11)
[2019-05-25] MEDS: amLODIPine 5 MG TAB PO SCH (08:11)
[2019-05-25] MEDS: FAMOTIDINE 20 MG/2 ML VIAL IV SCH (08:11)
[2019-05-25] MEDS: ACYCLOVIR SODIUM 500 MG in SODIUM CHLORIDE 0.9% 100 ML IVPB SCH (08:12)
[2019-05-25] MEDS: BENZTROPINE MESYLATE 1 MG TAB PO SCH (08:12)
[2019-05-25] MEDS: clonazePAM 1 MG TAB PO SCH ×2 (08:12→12:55)
[2019-05-25] MEDS: ARIPiprazole 10 MG TAB PO SCH (08:12)
[2019-05-25 11:48] VITALS: BMI 34.2
[2019-05-25] MEDS ORDERED: ACYCLOVIR 800 MG TAB PO SCH (21:00)
--- NOTE | 2019-05-26 02:24 | DS ---
DISCHARGE SUMMARY CHIEF COMPLAINT: Angioedema. HISTORY OF PRESENT ILLNESS AND PHYSICAL EXAM: Details of this lady's history and physical can be found in the initial workup. LABORATORY STUDIES: While she was in the hospital, she had laboratory studies, details of which can be found in the laboratory section of her chart. COURSE IN HOSPITAL: After admission, she was placed on bedrest and started on intravenous fluids and placed back on steroids. She seemed to improve and as per her usual pattern, but she still seemed to be comfortable. It was fairly clear to the staff in and to me that she was having oral pain and possibly pain in the throat. She was seen by ENT and oral surgery and because of limited ability to be able to examine her, nothing could really be found or concluded. Determination was made to start her on acyclovir and she seemed to clinically improve within a day or 2. She had less swelling of the lips around the of the jaw and the neck and she seem to be comfortable and not clutching her throat all the time. Her blood pressure elevated and this was treated. At that point she was doing well enough it was felt that she could return to the residential. She will go there on acyclovir and antihypertensive medications and will be followed there. FINAL DIAGNOSES: 1. Angioedema. 2. Possible herpangina or herpes stomatitis and pharyngitis. 3. Hypertension. 4. Mental incapacitation. OPERATIONS: None. CONSULTATION: ENT and Oral surgery. She is improved. MMODL / IJN: [id number] /
--- NOTE | 2019-05-26 10:22 | CDI ---
Documentation Clarification Form Date: 05/26/19 From: Agueda Zaragoza Phone: If you have a question regarding this query, please contact Mima Styles at [phone] between 8am and 5pm. Admit Date: 05/19/2019 2:54:00 PM Patient Name: Ramandeep Whitt Visit Number: [id number] Discharge Date: 05/25/2019 4:53:00 PM ATTENTION: The Clinical Documentation Specialists (CDI) and [facility] Coding Staff appreciate your assistance in clarifying documentation. Please respond to the clarification below the line at the bottom and electronically sign. The CDI & [facility] Coding staff will review the response and follow-up if needed. Please note: Queries are made part of the Legal Health Record. If you have any questions, please contact the author of this message via ITS. Dr. Gian Dillon The patient presented with angioedema of the mouth. In your 05/24 progress note, you documented that the patient had uncontrolled blood pressure and documented in the discharge summary that the patient has hypertension. History/Risk Factors: Sleep apnea and COPD. Clinical Indicators: Elevated blood pressure Vital Signs: Blood pressure on 05/23 left arm at 21:17 200/100, 8/7 left arm at 12:01 a.m. 181/131, 7:43 a.m 173/93; 8/7 right calf at 12:01 174/107, 8/7 left calf at 12:01 187/117, 8/7 right arm at 12:01 163/117 Treatment: Norvasc p.o. and Losartan potassium p.o. Consults: In your professional opinion, can you please clarify the uncontrolled hypertension? Emergency Urgency Crisis Other, please specify Unable to determine MTDD
--- NOTE | 2019-05-26 10:45 | CDI ---
Documentation Clarification Form Date: 05/26/19 From: Agueda Zaragoza Phone: If you have a question regarding this query, please contact Mima Styles at [phone] between 8am and 5pm. Admit Date: 05/19/2019 2:54:00 PM Patient Name: Ramandeep Whitt Visit Number: [id number] Discharge Date: 05/25/2019 4:53:00 PM ATTENTION: The Clinical Documentation Specialists (CDI) and [facility] Coding Staff appreciate your assistance in clarifying documentation. Please respond to the clarification below the line at the bottom and electronically sign. The CDI & [facility] Coding staff will review the response and follow-up if needed. Please note: Queries are made part of the Legal Health Record. If you have any questions, please contact the author of this message via ITS. Dr. Gian Dillon The patient presented with angioedema of the mouth. In your 05/24 progress note, you documented that the patient had uncontrolled blood pressure and documented in the discharge summary that the patient has hypertension. History/Risk Factors: Sleep apnea and COPD. Clinical Indicators: Elevated blood pressure Vital Signs: Blood pressure on 05/23 left arm at 21:17 200/100, 8/7 left arm at 12:01 a.m. 181/131, 7:43 a.m 173/93; 8/7 right calf at 12:01 174/107, 8/7 left calf at 12:01 187/117, 8/7 right arm at 12:01 163/117 Treatment: Norvasc p.o. and Losartan potassium p.o. Consults: In your professional opinion, can you please clarify the uncontrolled hypertension? Emergency Urgency Crisis Other, please specify Unable to determine MTDD
--- NOTE | 2019-05-30 05:40 | MISC ---
MISCELLANOUS REPORT QUERY Hypertension: I would say other would be benign uncontrolled hypertension. Next same question on hypertension. I guess I would say unable to determine. It is not any of those. MMODL / IJN: [id number] /
--- NOTE | 2019-05-30 16:31 | CDI ---
Documentation Clarification Form Date: 05/30/19 From: Agueda Zaragoza Phone: If you have a question regarding this query, please contact Mima Styles at [phone] between 8am and 5pm. Admit Date: 05/19/2019 2:54:00 PM Patient Name: Ramandeep Whitt Visit Number: [id number] Discharge Date: 05/25/2019 4:53:00 PM ATTENTION: The Clinical Documentation Specialists (CDI) and [facility] Coding Staff appreciate your assistance in clarifying documentation. Please respond to the clarification below the line at the bottom and electronically sign. The CDI & [facility] Coding staff will review the response and follow-up if needed. Please note: Queries are made part of the Legal Health Record. If you have any questions, please contact the author of this message via ITS. Dr. Gian Dillon Altered Mental Status was documented in the ED report. History/Risk Factors: Developmental delay, angioedema of the mouth, possible herpangina or herpes stomatitis and pharyngitis. Clinical Indicators: altered mental status Labs: BUN 29, glucose 136, trace urine protein, X Ray: Chest: No acute intrathoracic process. Treatment: IV Acyclovir and IV ampicillin for the angioedema, and viral stomatitis/pharyngitis. In your professional opinion, please clarify the etiology of the Altered Mental Status, if known. Delirium (specify cause): Dementia (if know, specify Type and if with/without Behavioral Disturbance) Encephalopathy (specify Type and Underlying Medical Illness) Other condition (please specify) Unable to determine MTDD
--- NOTE | 2019-05-31 12:03 | MISC ---
MISCELLANOUS REPORT QUERY: Altered mental status is other condition. Mental incapacitation. MMODL / IJN: [id number] /
== END 2019-05-25 16:53 | disposition home health service (06) | DRG 916 ==
LOC: EC 22:38 → 3NMEDONC 05-18 01:27 → OBSVTOIN 05-19 14:54
PROVIDERS: ADMIT Family Medicine; ATTEND Family Medicine
DX: T78.3XXA Angioneurotic edema, initial encounter (principal); B00.2 Herpesviral gingivostomatitis and pharyngotonsillitis; K04.01 Reversible pulpitis; H90.5 Unspecified sensorineural hearing loss; R13.13 Dysphagia, pharyngeal phase; B08.5 Enteroviral vesicular pharyngitis; E78.5 Hyperlipidemia, unspecified; F79 Unspecified intellectual disabilities; G40.909 Epilepsy, unspecified, not intractable, without status epilepticus; G47.30 Sleep apnea, unspecified; I10 Essential (primary) hypertension; I87.2 Venous insufficiency (chronic) (peripheral); J44.9 Chronic obstructive pulmonary disease, unspecified; F32.9 Major depressive disorder, single episode, unspecified; K59.09 Other constipation; M20.40 Other hammer toe(s) (acquired), unspecified foot; Z79.51 Long term (current) use of inhaled steroids; Z79.899 Other long term (current) drug therapy; Z88.8 Allergy status to other drugs, medicaments and biological substances
CPT/HCPCS: 36415; 70490; 71250; 80048; 80053; 81003; 83605; 85025; 86694; 86695; 86696; 86850; 86900; 86901; 87040; 96361; 96374; 96375; 99285

== ENCOUNTER → 2019-11-15 | Outpatient (CLI) | payer MEDICARE, OTHER ==
[2019-11-15 16:47] LABS: Basophils % (A) 1 %; Eosinophils % (A) 0 %; HCT 41.2 % (34.0-46.0); Lymphocytes # (A) 1.4 k/uL (1.0-4.8); Lymphocytes % (A) 37 %; MCH 29.5 pg (25.0-35.0); MCHC 31.5 g/dL (31.0-37.0); MCV 93.6 fL (80.0-100.0); Mean Platelet Volume 9.7; Monocytes # (A) 0.2 k/uL (0-1.0); Monocytes % (A) 5 %; Neutrophils % (A) 54 %; Platelet Count 132 k/uL (150-450); RDW 14.2 % (11.5-15.5); WBC 3.7 k/uL (3.8-10.6)
[2019-11-16 00:54] LABS: % Iron Saturation 24.43 (12.00-45.00); African American GFR (CKD) 109.1 (60.0-200.0); Albumin 4.1 g/dL (3.80-4.90); Albumin/Globulin Ratio 1.78 (1.60-3.17); Anion Gap 8.5 mmol/L (4.00-12.00); BUN/Creat Ratio 28.57 Ratio (12.00-20.00); Calcium 9.2 mg/dL (8.7-10.3); Carbon Dioxide 28.5 mmol/L (21.6-31.8); Globulin 2.3 g/dL (1.6-3.3); Non-African American GFR(CKD) 94.2 (60.0-200.0); Potassium 4.1 mmol/L (3.5-5.5); Total Bilirubin 0.4 mg/dL (0.2-1.2); Total Protein 6.4 g/dL (6.2-8.2)
[2019-11-16 01:03] LABS: Ferritin 56.6 ng/mL (10.0-291.0)
[2019-11-16 01:34] LABS: Folate, Serum 18.8 ng/mL
== END | disposition home or self-care (01) ==
LOC: LABWHC1 15:18
PROVIDERS: ATTEND Internal Medicine Hematology & Oncology
DX: D69.6 Thrombocytopenia, unspecified (principal); D64.9 Anemia, unspecified; D72.819 Decreased white blood cell count, unspecified
CPT/HCPCS: 36415; 80053; 82607; 82728; 82746; 83540; 83550; 85025

== ENCOUNTER 2020-02-12 12:03 | Inpatient (IN) | payer MEDICARE, OTHER ==
[2020-02-12] MEDS ORDERED: NALOXONE 0.4 MG/ML 1 ML VIAL IV PRN (15:25)
[2020-02-12] MEDS ORDERED: HYDROmorphone 0.5 MG/0.5 ML SYRINGE IVP PRN (15:27)
--- NOTE | 2020-02-12 16:01 | XR ---
EXAMINATION TYPE: XR chest 1V portable DATE OF EXAM: 02/12/2020 Comparison: 10/19/2018 Clinical History: 59-year-old female cough, pneumonia Findings: Rightward patient rotation alters the normal cardiomediastinal contours. Heart normal size. Aorta and pulmonary vasculature within normal limits. No consolidation or pleural effusion seen. Impression: Rotated exam causes some limitation in assessment of the heart and mediastinum. No focal infiltrate s een.
[2020-02-12 16:12] LABS: Anisocytosis Slight; Basophils % (A) 1 %; Eosinophils % (A) 0 %; HCT 30.2 % (34.0-46.0); HGB 9.3 gm/dL (11.4-16.0); Hypochromasia Marked; Lymphocytes # (A) 0.6 k/uL (1.0-4.8); Lymphocytes % (A) 15 %; MCH 32.5 pg (25.0-35.0); MCHC 30.8 g/dL (31.0-37.0); MCV 105.5 fL (80.0-100.0); Macrocytosis Marked; Mean Platelet Volume 8.6; Monocytes # (A) 0.1 k/uL (0-1.0); Monocytes % (A) 4 %; Neutrophils # (A) 3.1 k/uL (1.3-7.7); Neutrophils % (A) 79 %; Platelet Count 230 k/uL (150-450); RBC 2.86 m/uL (3.80-5.40); RDW 17.3 % (11.5-15.5)
[2020-02-12 16:20] LABS: ALT 20 U/L (4-34); AST 28 U/L (14-36); African American GFR (CKD) >90 (>60 ml/min/1.73 sqM); Albumin 2.5 g/dL (3.5-5.0); Alkaline Phosphatase 122 U/L (38-126); Anion Gap 4 mmol/L; Blood Urea Nitrogen 7 mg/dL (7-17); Calcium 7.9 mg/dL (8.4-10.2); Carbon Dioxide 27 mmol/L (22-30); Chloride 103 mmol/L (98-107); Glucose 87 mg/dL (74-99); Magnesium 1.6 mg/dL (1.6-2.3); Non-African American GFR(CKD) >90 (>60 ml/min/1.73 sqM); Phosphorus 3.2 mg/dL (2.5-4.5); Potassium 3.5 mmol/L (3.5-5.1); Sodium 134 mmol/L (137-145); Total Bilirubin 0.4 mg/dL (0.2-1.3); Total Protein 5.3 g/dL (6.3-8.2)
[2020-02-12 16:43] LABS: Poikilocytosis (M) Present
[2020-02-12] MEDS: PANTOPRAZOLE 40 MG/10 ML VIAL IVP SCH (17:08)
[2020-02-12] MEDS: SODIUM CHLORIDE 0.9% 1,000 ML IV SCH (17:09)
[2020-02-12] MEDS: PIPERACILLIN-TAZOBACTAM 3.375 GM in SODIUM CHLORIDE 0.9% 100 ML IVPB SCH ×2 (17:13→23:11)
--- NOTE | 2020-02-12 18:33 | XR ---
EXAMINATION TYPE: XR abdomen 1V DATE OF EXAM: 02/12/2020 6:27 PM CLINICAL HISTORY: Recent surgery with pain. TECHNIQUE: Single supine KUB image of the abdomen is obtained. COMPARISON: None. FINDINGS: Hyperdense suspected contrast material fills small bowel loops in the right abdomen, slight ly prominent but not greater than 3 cm dilated. Some contrast and fecal material in the right colon n oted. Left lower quadrant ostomy is seen. Osseous structures are somewhat demineralized. IMPRESSION: Overall nonobstructive bowel gas pattern.
--- NOTE | 2020-02-12 18:35 | HP ---
HISTORY AND PHYSICAL DATE OF SERVICE: 02/12/2020 CHIEF COMPLAINT: Diminished p.o. intake as well as fever. HISTORY OF PRESENT ILLNESS: This 59-year-old woman with a past medical history of multiple medical problems, including COPD, hyperlipidemia, seizure disorder, mental retardation, history of pancytopenia, mild sensorineural hearing defects, history of dysphagia, history of pericarditis, history of bronchial asthma, history of chronic venous insufficiency, chronic constipation, being followed by Dr. Carlitos Valenzuela in the outpatient setting, was living in a half-way setting, but recently the patient was apparently in [facility] with a bowel obstruction. The patient underwent colectomy and colostomy. The details are not available at this time, but the patient presented about 2 weeks later to [facility] with diminished p.o. intake as well as fever. The possibility of aspiration pneumonia was suspected and the physician Dr. Moreno discussed the case at length with me over the phone and the patient was transferred to [facility] for direct admission for further evaluation and treatment. Currently the patient is nonverbal. The patient has some abnormal shaking movement at times, and most of the history is taken from my discussion with Dr. Moreno as well as discussion with staff and review of the charts at this time. Surgical consultation with Dr. Chow is ongoing. PAST MEDICAL HISTORY: History of COPD, hyperlipidemia, seizure disorder, history of sleep apnea, syncope, mental retardation, recent surgery with ostomy placement for bowel obstruction, bipolar, depression. HOME MEDICATIONS: 1. Klonopin 1 mg p.o. b.i.d. 2. Norvasc 5 mg p.o. daily. 3. K-Dur 20 mEq p.o. daily. 4. MiraLAX 17 grams p.o. b.i.d. 5. Multivitamin 1 p.o. daily. 6. Cozaar 100 mg p.o. daily. 7. Claritin 10 mg p.o. daily. 8. DuoNeb q.i.d. and p.r.n. 9. Flonase daily. 10.Calcium 500 mg p.o. b.i.d. 11.Pulmicort 0.5 daily. 12.Cogentin 1 mg p.o. b.i.d. 13.Zovirax 800 mg p.o. b.i.d. 14.Abilify 10 mg p.o. daily. ALLERGIES: LITHIUM and TOPAMAX. Family history, social history, review of systems could not be taken because of the patient's mental status. No history of smoking or alcohol per chart. PHYSICAL EXAMINATION: Patient is nonverbal, appears conscious, but not communicating. Pulse 88, blood pressure 140/45, respiration 20, temperature 97.5, pulse ox 97% on room air. HEENT: Conjunctivae normal. Oral mucosa moist. NECK: No jugular venous distention. No carotid bruit. No lymph node enlargement. CARDIOVASCULAR SYSTEM: S1, S2 muffled. RESPIRATORY SYSTEM: Breath sounds diminished at the bases. A few scattered rhonchi and crackles. ABDOMEN: Soft. Status post colostomy. Mild diffuse distention present. Otherwise, no guarding, no rigidity. No mass palpable. LEGS: No edema. No swelling. NERVOUS SYSTEM: Higher functions as mentioned earlier. Moves all 4 limbs. No focal motor or sensory deficit. Some jerky tremors of the right upper extremity also noted. SKIN: No ulcer, rash, bleeding. JOINTS: No active deforming arthropathy. LABS: WBC 4, hemoglobin 9.3, MCV 101.5. Sodium 135. ASSESSMENT: 1. Fever, possible aspiration pneumonia; rule out sepsis. 2. Change in mental status, metabolic encephalopathy, acute on chronic. 3. Dysphagia, for possible PEG tube placement. 4. Anemia, macrocytic. 5. Hyponatremia. 6. Hypoalbuminemia with mild protein-calorie malnutrition. 7. History of recent laparotomy and colostomy for bowel obstruction. 8. History of chronic obstructive pulmonary disease. 9. Hyperlipidemia. 10.Seizure disorder. 11.History of sleep apnea. 12.History of syncope. 13.History of mental retardation. 14.History of pancytopenia. 15.History of mild sensorineural hearing loss of the left ear. 16.History of pericardial cyst. 17.History of right-sided aortic arch. 18.History of bronchial asthma. 19.History of chronic constipation. 20.History of left salivary gland removal. 21.History of bipolar depression. 22.FULL CODE. RECOMMENDATIONS AND DISCUSSION: In this 59-year-old woman who presented with multiple complex medical issues, as mentioned earlier, I would recommend broad-spectrum IV antibiotics. I would also recommend consultation with Dr. Kowalski and Dr. Chow for surgical evaluation. Otherwise, we will resume the home medication once it is reconciled. Otherwise, DVT prophylaxis. Proton pump inhibitors. Overall prognosis is guarded because of multiple complex medical issues. Further recommendations to follow. A copy of this dictation is being forwarded to Dr. Valenzuela, who is the primary physician. JAIME / ACEN: [id number] /
[2020-02-12] MEDS: HEPARIN SODIUM,PORCINE 5,000 UNIT/ML 1 ML VIAL SQ SCH (20:17)
[2020-02-13 07:14] LABS: Anisocytosis Slight; Basophils % (A) 1 %; Eosinophils % (A) 1 %; HCT 29.6 % (34.0-46.0); HGB 9.4 gm/dL (11.4-16.0); Hypochromasia Moderate; Lymphocytes # (A) 0.7 k/uL (1.0-4.8); Lymphocytes % (A) 19 %; MCH 33.1 pg (25.0-35.0); MCHC 31.9 g/dL (31.0-37.0); MCV 103.8 fL (80.0-100.0); Macrocytosis Moderate; Mean Platelet Volume 8.2; Monocytes # (A) 0.1 k/uL (0-1.0); Monocytes % (A) 3 %; Neutrophils # (A) 2.9 k/uL (1.3-7.7); Neutrophils % (A) 75 %; Platelet Count 211 k/uL (150-450); RBC 2.85 m/uL (3.80-5.40); RDW 17.4 % (11.5-15.5); WBC 3.9 k/uL (3.8-10.6)
[2020-02-13 07:41] LABS: African American GFR (CKD) >90 (>60 ml/min/1.73 sqM); Anion Gap 5 mmol/L; Blood Urea Nitrogen 6 mg/dL (7-17); Calcium 7.5 mg/dL (8.4-10.2); Carbon Dioxide 27 mmol/L (22-30); Chloride 101 mmol/L (98-107); Glucose 78 mg/dL (74-99); Non-African American GFR(CKD) >90 (>60 ml/min/1.73 sqM); Sodium 133 mmol/L (137-145)
[2020-02-13] MEDS: PIPERACILLIN-TAZOBACTAM 3.375 GM in SODIUM CHLORIDE 0.9% 100 ML IVPB SCH ×2 (08:00→16:19)
[2020-02-13] MEDS: HEPARIN SODIUM,PORCINE 5,000 UNIT/ML 1 ML VIAL SQ SCH ×2 (08:00→21:36)
[2020-02-13] MEDS: PANTOPRAZOLE 40 MG/10 ML VIAL IVP SCH (08:00)
--- NOTE | 2020-02-13 12:03 | P.CNPUL ---
History of Present Illness Consult date: 02/13/20 Requesting physician: Trena Cruz Reason for consult: dyspnea Chief complaint: Possible aspiration pneumonia History of present illness: 59-year-old white female patient of Dr. Valenzuela, with multiple medical problems including history of seizure disorder, cognitive deficit, dysphagia, hearing deficit, COPD/chronic bronchial asthma, history of chronic constipation, chronic venous insufficiency, who resides in the [place] [facility] setting. Patient was recently hospitalized in [facility] with a bowel obstruction, and underwent colectomy and colostomy approximately 2 weeks ago. Patient apparently presented to [facility] for evaluation of fever, and diminished oral intake. Was a concern about aspiration pneumonia and patient was transferred to [facility] for further evaluation and treatment. Patient was started on Zosyn for empiric antibiotic coverage, her chest x-ray from 02/12/2020 shows no focal infiltrates. Outside CT chest film reviewed, showing no evidence of acute focal infiltrates. At the time of our evaluation patient is resting quietly in bed, room air pulse ox is 98%, afebrile, hemodynamically stable, she is non-verbal, but does not appear to be in any respiratory distress. She is nothing by mouth for possibility of aspiration, we will have speech therapy evaluate her swallowing ability. Surgical consult has been placed with Dr. Chow in view of recent surgery for bowel obstruction. KUB of the abdomen showed overall nonobstructive bowel gas pattern. Review of Systems All systems: negative Constitutional: Denies chills, Denies fever Eyes: denies blurred vision, denies pain Ears, nose, mouth and throat: Denies headache, Denies sore throat Cardiovascular: Denies chest pain, Denies shortness of breath Respiratory: Denies cough Gastrointestinal: Denies abdominal pain, Denies diarrhea, Denies nausea, Denies vomiting Genitourinary: Denies dysuria, Denies hematuria Musculoskeletal: Denies myalgias Integumentary: Denies pruritus, Denies rash Neurological: Denies numbness, Denies weakness Psychiatric: Denies anxiety, Denies depression Endocrine: Denies fatigue, Denies weight change 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 Past Psychological History: Bipolar, Depression Smoking Status: Never smoker Past Alcohol Use History: None Reported Past Drug Use History: None Reported - Past Family History Mother Family Medical History: Unable to Obtain Medications and Allergies Home Medications Medication Instructions Recorded Confirmed Type Ipratropium-Albuterol Nebulize 3 ml INHALATION RT-TID PRN 09/15/18 02/12/20 History [Duoneb 0.5 mg-3 mg/3 ml Soln] Amiodarone [Cordarone] 200 mg PO W/BRKFST 02/12/20 02/12/20 History Benztropine Mesylate 0.5 mg PO TID@0700,1600,199902/12/20 02/12/20 History Divalproex Sprinkle [Depakote 250 mg PO TID@0700,1600,199902/12/20 02/12/20 History Sprinkle] Ergocalciferol (Vitamin D2) 50,000 unit PO Q7D 02/12/20 02/12/20 History [Drisdol] Haloperidol 5 mg PO DAILY@0700 02/12/20 02/12/20 History LORazepam [Ativan] 1 mg PO TID@0700,1600,1999 PRN 02/12/20 02/12/20 History Allergies Allergy/AdvReac Type Severity Reaction Status Date / Time lithium Allergy Unknown Verified 02/12/20 17:14 topiramate [From Topamax] Allergy Unknown Verified 02/12/20 17:14 Physical Exam Vitals: Vital Signs Temp Pulse Resp BP Pulse Ox 02/13/20 07:00 98.5 F 73 17 132/69 98 02/13/20 00:20 98.0 F 73 14 124/68 97 02/12/20 19:49 98.5 F 71 18 145/63 94 L 02/12/20 16:00 88 20 02/12/20 15:41 97.5 F L 88 20 145/45 97 02/12/20 15:25 97 Intake and Output 02/12/20 02/13/20 02/13/20 22:59 06:59 14:59 Intake Total 100 100 Balance 100 100 Intake: Intake, IV Titration 100 100 Amount Piperacillin-Tazobactam 3 100 100 .375 gm In Sodium Chloride 0.9% 100 ml @ 25 mls/hr IVPB Q8HR [facility] Rx# :[id number] Other: # Voids 2 2 Weight 72.5 kg GENERAL EXAM: Alert, 59-year-old female, resting comfortably in bed, on room air, patient is nonverbal, related to history of seizures, chronic cognitive de ficit, comfortable in no apparent distress. HEAD: Normocephalic/atraumatic. EYES: Normal reaction of pupils, equal size. Conjunctiva pink, sclera white. NOSE: Clear with pink turbinates. THROAT: No erythema or exudates. NECK: No masses, no JVD, no thyroid enlargement, no adenopathy. CHEST: No chest wall deformity. Symmetrical expansion. LUNGS: Equal air entry with no crackles, wheeze, rhonchi or dullness. CVS: Regular rate and rhythm, normal S1 and S2, no gallops, no murmurs, no rubs ABDOMEN: Soft, nontender. No hepatosplenomegaly, normal bowel sounds, no guarding or rigidity. Patient has colostomy in place EXTREMITIES: No clubbing, no edema, no cyanosis, 2+ pulses and upper and lower extremities. MUSCULOSKELETAL: Muscle strength and tone normal. SPINE: No scoliosis or deformity SKIN: No rashes CENTRAL NERVOUS SYSTEM: Unable to assess, patient is nonverbal Results - Laboratory Findings CBC and BMP: 02/13/20 06:26 02/13/20 06:26 Abnormal lab findings: Abnormal Labs 02/12/20 02/12/20 02/13/20 15:54 15:54 06:26 RBC 2.86 L 2.85 L Hgb 9.3 L 9.4 L Hct 30.2 L 29.6 L MCV 105.5 H 103.8 H MCHC 30.8 L RDW 17.3 H 17.4 H Lymphocytes # 0.6 L 0.7 L Macrocytosis Marked A Sodium 134 L BUN Calcium 7.9 L Total Protein 5.3 L Albumin 2.5 L 02/13/20 06:26 RBC Hgb Hct MCV MCHC RDW Lymphocytes # Macrocytosis Sodium 133 L BUN 6 L Calcium 7.5 L Total Protein Albumin - Diagnostic Findings Chest x-ray: report reviewed, image reviewed CT scan - chest: report reviewed, image reviewed Assessment and Plan Plan: Assessment: #1. Acute febrile illness rule out possibility of aspiration pneumonia, chest x-ray showed no focal infiltrates, outside CT chest shows no acute pulmonary process. COVID 19 ruled out #2. Chronic dysphagia, rule out chronic aspiration #3. History of seizure disorder #4. Chronic cognitive deficit #5. Recent history of bowel obstruction status post colectomy and colostomy. KUB abdomen showing nonobstructive bowel pattern #6. History of sleep apnea #7. History of chronic bronchial asthma, unspecified #8. His trip chronic constipation #9. History of bipolar depression #10. Hyperlipidemia Plan: We'll obtain speech therapy evaluation, patient seems to be calm and comfortable, in no acute respiratory distress, she is on room air, continue current antibiotic coverage, no definite evidence of pneumonia seen on the chest x-ray or CT chest. Obtain follow-up chest x-ray in the morning, maintain aspiration precaution, patient is nothing by mouth. Surgical consultation is pending in view of recent bowel surgery. We'll continue to follow I performed a history & physical examination of the patient and discussed their management with my nurse practitioner, Jessika Nix. I reviewed the nurse practitioner's note and agree with the documented findings and plan of care. Lung sounds are positive for clear breath sounds. The findings and the impression was discussed with the patient. I attest to the documentation by the nurse practitioner. Time with Patient: Greater than 30
[2020-02-13] MEDS: HALOPERIDOL LACTATE 5 MG/ML 1 ML VIAL IM SCH (12:49)
--- NOTE | 2020-02-13 12:49 | P.GSCN ---
History of Present Illness Consult date: 02/13/20 Reason for Consult: PEG tube placement Requesting physician: Trena Cruz History of present illness: CHIEF COMPLAINT: PEG tube insertion HISTORY OF PRESENT ILLNESS: 59-year-old female who recently underwent colectomy and colostomy creation secondary to bowel obstruction site facility. Patient is currently admitted to hospital secondary to decreased oral intake and suspected aspiration pneumonia. General surgery was consulted for PEG tube placement. PAST MEDICAL HISTORY: See list. PAST SURGICAL HISTORY: See list. SOCIAL HISTORY: No illicit drug use. REVIEW OF SYSTEMS: Unable to perform thorough review of systems due to mental status PHYSICAL EXAM: VITAL SIGNS: Reviewed. GENERAL: Well-developed in no acute distress. HEENT: No sclera icterus. Extraocular movements grossly intact. Moist buccal mucosa. Head is atraumatic, normocephalic. ABDOMEN: Soft. Nondistended. Nontender. Colostomy noted with stool output. NEUROLOGIC: Awake. Nonverbal at baseline LABORATORY DATA: WBC 3.9. Hemoglobin 9.4. Platelet count 211. Sodium 133. Potassium 4.0. BUN 6. Creatinine 0.57. IMAGING: -Abdominal x-ray: Overall nonobstructive bowel gas pattern -Chest x-ray: Rotated exam causes some limitation in assessment of the heart and mediastinum. No focal infiltrates seen. ASSESSMENT: 1. Possible aspiration pneumonia 2. Dysphagia 3. Moderate protein calorie malnutrition 4. Recent colectomy with colostomy creation secondary to bowel obstruction PLAN: NPO Patient will be scheduled for PEG tube placement tomorrow with Dr. Chow Nurse practitioner note has been reviewed by physician. Signing provider agrees with the documented findings, assessment, and plan of care. 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 Past Psychological History: Bipolar, Depression Smoking Status: Never smoker Past Alcohol Use History: None Reported Past Drug Use History: None Reported - Past Family History Mother Family Medical History: Unable to Obtain Medications and Allergies Home Medications Medication Instructions Recorded Confirmed Type Ipratropium-Albuterol Nebulize 3 ml INHALATION RT-TID PRN 09/15/18 02/12/20 History [Duoneb 0.5 mg-3 mg/3 ml Soln] Amiodarone [Cordarone] 200 mg PO W/BRKFST 02/12/20 02/12/20 History Benztropine Mesylate 0.5 mg PO TID@0700,1599,199902/12/20 02/12/20 History Divalproex Sprinkle [Depakote 250 mg PO TID@0700,1599,199902/12/20 02/12/20 History Sprinkle] Ergocalciferol (Vitamin D2) 50,000 unit PO Q7D 02/12/20 02/12/20 History [Drisdol] Haloperidol 5 mg PO DAILY@0700 02/12/20 02/12/20 History LORazepam [Ativan] 1 mg PO TID@0700,1599,1999 PRN 02/12/20 02/12/20 History Allergies Allergy/AdvReac Type Severity Reaction Status Date / Time lithium Allergy Unknown Verified 02/12/20 17:14 topiramate [From Topamax] Allergy Unknown Verified 02/12/20 17:14 Surgical - Exam Vital Signs Pulse Ox 97 02/12/20 15:25 Results - Labs 02/13/20 06:26 02/13/20 06:26 Abnormal Lab Results - Last 24 Hours (Table) 02/12/20 02/12/20 02/13/20 Range/Units 15:54 15:54 06:26 RBC 2.86 L 2.85 L (3.80-5.40) m/uL Hgb 9.3 L 9.4 L (11.4-16.0) gm/dL Hct 30.2 L 29.6 L (34.0-46.0) % MCV 105.5 H 103.8 H (80.0-100.0) fL MCHC 30.8 L (31.0-37.0) g/dL RDW 17.3 H 17.4 H (11.5-15.5) % Lymphocytes # 0.6 L 0.7 L (1.0-4.8) k/uL Macrocytosis Marked A Sodium 134 L (137-145) mmol/L BUN (7-17) mg/dL Calcium 7.9 L (8.4-10.2) mg/dL Total Protein 5.3 L (6.3-8.2) g/dL Albumin 2.5 L (3.5-5.0) g/dL 02/13/20 Range/Units 06:26 RBC (3.80-5.40) m/uL Hgb (11.4-16.0) gm/dL Hct (34.0-46.0) % MCV (80.0-100.0) fL MCHC (31.0-37.0) g/dL RDW (11.5-15.5) % Lymphocytes # (1.0-4.8) k/uL Macrocytosis Sodium 133 L (137-145) mmol/L BUN 6 L (7-17) mg/dL Calcium 7.5 L (8.4-10.2) mg/dL Total Protein (6.3-8.2) g/dL Albumin (3.5-5.0) g/dL Diabetes panel 02/12/20 02/13/20 Range/Units 15:54 06:26 Sodium 134 L 133 L (137-145) mmol/L Potassium 3.5 4.0 (3.5-5.1) mmol/L Chloride 103 101 (98-107) mmol/L Carbon Dioxide 27 27 (22-30) mmol/L BUN 7 6 L (7-17) mg/dL Creatinine 0.60 0.57 (0.52-1.04) mg/dL Glucose 87 78 (74-99) mg/dL Calcium 7.9 L 7.5 L (8.4-10.2) mg/dL AST 28 (14-36) U/L ALT 20 (4-34) U/L Alkaline Phosphatase 122 (38-126) U/L Total Protein 5.3 L (6.3-8.2) g/dL Albumin 2.5 L (3.5-5.0) g/dL Calcium panel 02/12/20 02/13/20 Range/Units 15:54 06:26 Calcium 7.9 L 7.5 L (8.4-10.2) mg/dL Phosphorus 3.2 (2.5-4.5) mg/dL Albumin 2.5 L (3.5-5.0) g/dL Pituitary panel 02/12/20 02/13/20 Range/Units 15:54 06:26 Sodium 134 L 133 L (137-145) mmol/L Potassium 3.5 4.0 (3.5-5.1) mmol/L Chloride 103 101 (98-107) mmol/L Carbon Dioxide 27 27 (22-30) mmol/L BUN 7 6 L (7-17) mg/dL Creatinine 0.60 0.57 (0.52-1.04) mg/dL Glucose 87 78 (74-99) mg/dL Calcium 7.9 L 7.5 L (8.4-10.2) mg/dL Adrenal panel 02/12/20 02/13/20 Range/Units 15:54 06:26 Sodium 134 L 133 L (137-145) mmol/L Potassium 3.5 4.0 (3.5-5.1) mmol/L Chloride 103 101 (98-107) mmol/L Carbon Dioxide 27 27 (22-30) mmol/L BUN 7 6 L (7-17) mg/dL Creatinine 0.60 0.57 (0.52-1.04) mg/dL Glucose 87 78 (74-99) mg/dL Calcium 7.9 L 7.5 L (8.4-10.2) mg/dL Total Bilirubin 0.4 (0.2-1.3) mg/dL AST 28 (14-36) U/L ALT 20 (4-34) U/L Alkaline Phosphatase 122 (38-126) U/L Total Protein 5.3 L (6.3-8.2) g/dL Albumin 2.5 L (3.5-5.0) g/dL
[2020-02-13 15:30] LABS: C Reactive Protein 23.4 mg/L (<10.0)
--- NOTE | 2020-02-13 15:55 | PN ---
PROGRESS NOTE DATE OF SERVICE: 02/13/2020 This is a 59-year-old woman who was admitted with diminished p.o. intake, also had possibly aspiration pneumonia. The patient has significant jerking movements. Patient apparently taking Haldol which could not be given at this time because of the swallowing issues. PEG tube placement is being also being considered. Patient being closely monitored. PAST MEDICAL HISTORY: Reviewed. REVIEW OF SYSTEMS: Could not be taken, the patient is nonverbal. CURRENT MEDICATIONS: Reviewed and include: 1. Haldol 5 mg IM daily. 2. Heparin 5,000 daily. 3. Dilaudid p.r.n. 4. Narcan. 5. Protonix. 6. Zosyn IV. PHYSICAL EXAMINATION: Patient is conscious, confused, delirious. Abnormal movements and jerking movements present. Pulse ntd blood pressure 130/69, respiration 17, temperature 98.5, pulse ox 98% on room air skin: HEENT: Conjunctivae normal. Oral mucosa moist. NECK: No jugular venous distention. No lymph node enlargement. CARDIOVASCULAR SYSTEM: S1, S2, muffled. RESPIRATION: Breath sounds diminished at the bases, a few scattered rhonchi, no crackles. ABDOMEN: Soft, nontender. LEGS: No edema, no swelling. NERVOUS SYSTEM: Diffusely weak, contractures, tremors also present. LABS: WBC 3.9, hemoglobin 9.4, sodium 133, casey virus is negative. ASSESSMENT: 1. Fever, possible aspiration pneumonia with possible sepsis, present on admission. 2. Change in mental status, metabolic encephalopathy, acute on chronic. 3. Dysphagia for possible PEG tube placement. 4. Anemia, macrocytic. 5. Hyponatremia. 6. Hypoalbuminemia with mild protein calorie malnutrition. 7. History of recent laparotomy with colostomy for bowel obstruction. 8. History of chronic obstructive pulmonary disease. 9. Hyperlipidemia. 10.Seizure disorder. 11.Sleep apnea. 12.History of syncope. 13.History of mental retardation. 14.History of pancytopenia. 15.History of mild sensorineural hearing loss of the left ear. 16.History of pericardial cyst. 17.History of right-sided aortic arch. 18.History of bronchial asthma, chronic, intermittent. 19.History of chronic constipation. 20.History of left salivary gland removal. 21.History of bipolar depression. 22.FULL CODE. RECOMMENDATION: Recommend to continue current management and symptomatic treatment. Continue with broad-spectrum IV antibiotics. Will repeat a chest x-ray tomorrow to assess the progress of the lung abnormality. Guarded prognosis. Further recommendations to follow. MMODL / IJN: [id number] / MTDD
--- NOTE | 2020-02-13 16:12 | CT ---
EXAMINATION TYPE: CT brain wo con DATE OF EXAM: 02/13/2020 HISTORY: Abnormal involuntary movements. CT DLP: 1177.4 mGycm. Automated Exposure Control for Dose Reduction was Utilized. TECHNIQUE: CT scan of the head is performed without contrast. COMPARISON: Outside head CT September 15, 2018 FINDINGS: Current exam suboptimal due to motion artifact degradation. There is no obvious acute intr acranial hemorrhage or midline shift identified. There is mild diffuse ventricular and sulcal promine nce redemonstrated. There is mild low-attenuation in the periventricular white matter consistent wit h chronic small vessel ischemic change again seen. Opacified right mastoid air cells redemonstrated. Bilateral basal ganglia calcifications again seen. The globes are intact and the visualized sinuses a re clear. IMPRESSION: No acute intracranial hemorrhage or midline shift. There is mild diffuse age-related ce rebral atrophy and mild chronic small vessel ischemic change redemonstrated. No significant change f rom outside CT.
[2020-02-13] MEDS: SODIUM CHLORIDE 0.9% 1,000 ML IV SCH (16:19)
[2020-02-13 16:45] LABS: T4, Free (Free Thyroxine) 1.45 ng/dL (0.78-2.19)
[2020-02-13 21:04] LABS: Creatine Kinase 227 U/L (30-135)
[2020-02-13 21:11] LABS: Valproic Acid (Depakene) <10.0 ug/mL
[2020-02-14] MEDS: PIPERACILLIN-TAZOBACTAM 3.375 GM in SODIUM CHLORIDE 0.9% 100 ML IVPB SCH ×4 (00:43→23:21)
--- NOTE | 2020-02-14 00:58 | CONS ---
CONSULTATION NEW NEUROLOGY CONSULT NOTE: DATE OF SERVICE: February 13, 2020 REASON FOR CONSULT: Abnormal involuntary movements HISTORY OF PRESENT ILLNESS: This history was provided by the patient's sister at contact number [phone]. This sister reports that her sister the patient was diagnosed with schizophrenia and mental retardation as a teenager. By the age of 19, she was already living in a [place] [facility] facility. She had a history of a head injury, falling out of bed as a toddler. The patient as I indicated lived in a [place] [facility] facility since her 20s. 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 The patient was admitted due to need for PEG placement since she had significant decrease in her health after undergoing colostomy bag where she was hospitalized. This was fairly recently. Her sister says that after this hospitalization, many of her psychiatric medications were readjusted and some left off. Her observation was this is what led to questionable more difficulty swallowing and being able to take p.o. CT scan of the head was negative for any acute injury on admission. A review of systems and past medical history were obtained by this sister. Essentially, the patient's health has been declining over the last several years. She has become more nonverbal and less tracking. PAST MEDICAL HISTORY: Significant for adult failure to thrive. SURGICAL HISTORY: Significant for status post colostomy placement. GENERAL EXAMINATION: VITAL SIGNS: Stable, afebrile. HEENT: Poor oral hygiene with rotting teeth. Overall poor hygiene in patient's appearance. PULSES: Radial and pedal pulses appear equal and symmetric. SKIN: Multiple bruises of different ages are noted on the shoulders. EXTREMITIES: Contractures are noted in the hands with distal muscle wasting and contractures in the feet. NEUROLOGIC EXAM: The patient is awake, hypervigilant. The patient does track to light. Pupils: 2 mm, sluggishly reactive to light, but symmetric. Cranial Nerve Examination: The patient is able to track light in vertical and horizontal gaze. No nystagmus noted on either gaze. Face appears symmetric. Gag reflex diminished. Tongue appears midline without fasciculation or deviation. Motor Examination: Increased spasticity noted in both the upper and lower extremities. The patient has both rhythmic and semi-rhythmic movements of the upper body and hands and to a lesser extent in lower extremities. When passive resistance is placed on the hands, this does not stop the movement. Deep tendon reflexes were depressed throughout due to spasticity. No ankle clonus was elicited. SUMMARY: 1. Acute febrile illness, possibly due to aspiration pneumonia. 2. Status post colostomy, pending PEG placement. 3. Abnormal involuntary movements. 4. Catatonic schizophrenia. 5. Adult failure to thrive with chronic dysphagia. RECOMMENDATIONS: 1. Obtain EEG to rule out possible underlying seizure activity. 2. Obtain ammonia level, ferritin, TSH, free T4, CK and prolactin levels tonight. 3. We will hold off on Depakote level, however, anticipate this will be low due to this patient's poor oral intake. 4. Would recommend psychiatric consult to evaluate her medications and make recommendations. This patient's prognosis remains guarded. Based on this patient's body morphology, I suspect she has underlying genetic syndrome and on clinical exam this evening, the rhythmic, semi-rhythmic movements of her hands and rocking could be self stimulatory behavior or could represent tonic clonic seizure activity. This patient's prognosis remains guarded. Neurology will follow closely and make recommendations daily. JAIME / JOVANI: [id number] / DASIA
[2020-02-14 01:56] LABS: Ferritin 354.6 ng/mL (10.0-291.0)
[2020-02-14 07:23] LABS: African American GFR (CKD) >90 (>60 ml/min/1.73 sqM); Anion Gap 13 mmol/L; Blood Urea Nitrogen 7 mg/dL (7-17); Calcium 8.4 mg/dL (8.4-10.2); Carbon Dioxide 22 mmol/L (22-30); Chloride 103 mmol/L (98-107); Glucose 72 mg/dL (74-99); Non-African American GFR(CKD) 81 (>60 ml/min/1.73 sqM); Potassium 3.7 mmol/L (3.5-5.1); Sodium 138 mmol/L (137-145)
[2020-02-14 07:34] LABS: Anisocytosis Slight; Basophils % (A) 1 %; Eosinophils % (A) 1 %; Hypochromasia Marked; Lymphocytes # (A) 0.6 k/uL (1.0-4.8); Lymphocytes % (A) 11 %; MCH 33.5 pg (25.0-35.0); MCHC 31.5 g/dL (31.0-37.0); MCV 106.4 fL (80.0-100.0); Macrocytosis Marked; Mean Platelet Volume 8.5; Monocytes # (A) 0.2 k/uL (0-1.0); Monocytes % (A) 5 %; Neutrophils # (A) 4.2 k/uL (1.3-7.7); Neutrophils % (A) 81 %; Platelet Count 296 k/uL (150-450); RBC 3.29 m/uL (3.80-5.40); RDW 17.2 % (11.5-15.5); WBC 5.2 k/uL (3.8-10.6)
[2020-02-14] MEDS: HALOPERIDOL LACTATE 5 MG/ML 1 ML VIAL IM SCH (07:45)
[2020-02-14] MEDS: PANTOPRAZOLE 40 MG/10 ML VIAL IVP SCH (07:45)
[2020-02-14] MEDS: HEPARIN SODIUM,PORCINE 5,000 UNIT/ML 1 ML VIAL SQ SCH ×2 (07:45→20:52)
[2020-02-14 08:39] LABS: Poikilocytosis (M) Present
[2020-02-14] MEDS ORDERED: PROPOFOL 10 MG/ML 20 ML VIAL IV ONE (11:06)
[2020-02-14] MEDS ORDERED: fentaNYL (PF) 50 MCG/ML 2 ML AMP ONE (11:06)
[2020-02-14] MEDS ORDERED: LIDOCAINE 1% INJ 10MG/ML (20 ML MDV) ONE (11:06)
[2020-02-14 11:16] LABS: Prolactin 17.3 ng/mL (2.8-29.2)
[2020-02-14] MEDS ORDERED: IV FLUID CONTINUATION 1,000 ML IV ONE (11:19)
--- NOTE | 2020-02-14 11:58 | P.OP ---
Date of Procedure: 02/14/20 Preoperative Diagnosis: Protein calorie malnutrition Postoperative Diagnosis: Protein calorie malnutrition Procedure(s) Performed: EGD with PEG placement Anesthesia: MAC Surgeon: Charly Chow Pathology: none sent Condition: stable Disposition: PACU Description of Procedure: Patient's placed on the endoscopy table in the lateral position. She received IV sedation. The abdominal wall was prepped and draped usual sterile fashion. The gastroscope was oropharynx and passed in the esophagus and into the stomach. Stomach was insufflated with air. The light reflux was seen in the anterior abdominal wall. The skin was anesthetized 1% local Xylocaine. An incision was made. The needles placed and stomach under direct visualization. The needle was then captured with snare and the wire was placed in the needle and the wire was snared and brought out through the oropharynx. The PEG tube placed overtop the wire and brought down to the stomach. The PEG tube was secured at the 3 cm esme. The one-piece bolster was applied. Patient top procedure well. She was sent to recovery in stable condition.
--- NOTE | 2020-02-14 12:46 | P.PN ---
Subjective Progress Note Date: 02/14/20 Principal diagnosis: Possible aspiration 59-year-old white female patient of Dr. Valenzuela, with multiple medical problems including history of seizure disorder, cognitive deficit, dysphagia, hearing deficit, COPD/chronic bronchial asthma, history of chronic constipation, chronic venous insufficiency, who resides in the [facility]. Patient was recently hospitalized in [facility] with a bowel obstruction, and underwent colectomy and colostomy approximately 2 weeks ago. Patient apparently presented to [facility] for evaluation of fever, and diminished oral intake. Was a concern about aspiration pneumonia and patient was transferred to [facility] for further evaluation and treatment. Patient was started on Zosyn for empiric antibiotic coverage, her chest x-ray from 02/12/2020 shows no focal infiltrates. Outside CT chest film reviewed, showing no evidence of acute focal infiltrates. At the time of our evaluation patient is resting quietly in bed, room air pulse ox is 98%, afebrile, hemodynamically stable, she is non-verbal, but does not appear to be in any respiratory distress. She is nothing by mouth for possibility of aspiration, we will have speech therapy evaluate her swallowing ability. Surgical consult has been placed with Dr. Chow in view of recent surgery for bowel obstruction. KUB of the abdomen showed overall nonobstructive bowel gas pattern. On 02/14/2020 patient seen in follow-up on general medical floor. She is awake, she is unable to respond verbally or follow any command, she is noted to have increased involuntary movements and she was evaluated by neurology. She did have a low-grade fever this morning with a temp of 100.4F, but does not appear to be in any respiratory distress, room air pulse ox is 95%, lung sounds are positive for diminished breath sounds at the bases, with a few scattered rhonchi. Patient remains on Zosyn for us to believe aspiration pneumonia and she's been afebrile, blood cultures have been negative. Patient was unable to complete follow-up evaluation related to difficulty following commands, PEG tube placement was recommended the patient is scheduled to undergo PEG tube placement today by Dr. Chow Objective - Vital Signs Vital signs: Vital Signs Temp 100.4 F H 02/14/20 07:00 Pulse 102 H 02/14/20 07:00 Resp 20 02/14/20 07:00 BP 170/70 02/14/20 07:00 Pulse Ox 95 02/14/20 07:00 Intake & Output 02/13/20 02/14/20 02/14/20 18:59 06:59 18:59 Intake Total 0 100 Balance 0 100 Weight 72.5 kg 67 kg Intake: IV 100 Oral 0 Other: Voiding Method Diaper Incontinent Incontinent Incontinent # Voids 5 - Exam GENERAL EXAM: Alert, 59-year-old female, resting comfortably in bed, on room air, patient is nonverbal, appears to have increased involuntary movements of upper extremities, and upper body, no apparent distress. She has increased spasticity and upper and lower extremities HEAD: Normocephalic/atraumatic. EYES: Normal reaction of pupils, equal size. Conjunctiva pink, sclera white. NOSE: Clear with pink turbinates. THROAT: No erythema or exudates. NECK: No masses, no JVD, no thyroid enlargement, no adenopathy. CHEST: No chest wall deformity. Symmetrical expansion. LUNGS: Equal air entry with no crackles, wheeze, rhonchi or dullness. CVS: Regular rate and rhythm, normal S1 and S2, no gallops, no murmurs, no rubs ABDOMEN: Soft, nontender. No hepatosplenomegaly, normal bowel sounds, no guarding or rigidity. Patient has colostomy in place EXTREMITIES: No clubbing, no edema, no cyanosis, 2+ pulses and upper and lower extremities. MUSCULOSKELETAL: Muscle strength and tone normal. SPINE: No scoliosis or deformity SKIN: No rashes CENTRAL NERVOUS SYSTEM: Unable to assess, patient is nonverbal - Labs CBC & Chem 7: 02/14/20 06:47 02/14/20 06:47 Labs: Abnormal Lab Results - Last 24 Hours (Table) 02/13/20 02/13/20 02/13/20 Range/Units 15:03 15:03 20:14 RBC (3.80-5.40) m/uL Hgb (11.4-16.0) gm/dL MCV (80.0-100.0) fL RDW (11.5-15.5) % Lymphocytes # (1.0-4.8) k/uL Macrocytosis ESR 35 H (0-20) mm/hr Glucose (74-99) mg/dL Ferritin 354.6 H (10.0-291.0) ng/mL Creatine Kinase 227 H (30-135) U/L C-Reactive Protein 23.4 H (<10.0) mg/L TSH 5.390 H 5.680 H (0.465-4.680) mIU/L 02/14/20 02/14/20 Range/Units 06:47 06:47 RBC 3.29 L (3.80-5.40) m/uL Hgb 11.0 L (11.4-16.0) gm/dL MCV 106.4 H (80.0-100.0) fL RDW 17.2 H (11.5-15.5) % Lymphocytes # 0.6 L (1.0-4.8) k/uL Macrocytosis Marked A ESR (0-20) mm/hr Glucose 72 L (74-99) mg/dL Ferritin (10.0-291.0) ng/mL Creatine Kinase (30-135) U/L C-Reactive Protein (<10.0) mg/L TSH (0.465-4.680) mIU/L Microbiology - Last 24 Hours (Table) 02/12/20 15:54 Blood Culture - Preliminary Blood No Growth after 24 hours Assessment and Plan Plan: Assessment: #1. Acute febrile illness rule out possibility of aspiration pneumonia, chest x-ray showed no focal infiltrates, outside CT chest shows no acute pulmonary process. COVID 19 ruled out #2. Chronic dysphagia, rule out chronic aspiration #3. History of seizure disorder #4. Chronic cognitive deficit #5. Recent history of bowel obstruction status post colectomy and colostomy. KUB abdomen showing nonobstructive bowel pattern #6. History of sleep apnea #7. History of chronic bronchial asthma, unspecified #8. His trip chronic constipation #9. History of bipolar depression #10. Hyperlipidemia Plan: Continue current antibiotic coverage, agree with PEG tube placement, patient has been scheduled for PEG tube placement with Dr. Chow. She has been retaining stable oxygenation on room air, No signs of any recent respiratory difficulty, maintain aspiration precaution. Follow-up chest x-ray in the morning. I performed a history & physical examination of the patient and discussed their management with my nurse practitioner, Jessika Nix. I reviewed the nurse practitioner's note and agree with the documented findings and plan of care. Lung sounds are positive for clear breath sounds. The findings and the impres blue was discussed with the patient. I attest to the documentation by the nurse practitioner. Time with Patient: Less than 30
--- NOTE | 2020-02-14 13:52 | P.CN ---
Psychiatric Consult - . Consult date: 02/14/20 Consult:: 02/14/20 13:38 IDENTIFYING DATA: This patient is a 59-year-old female with a history of schizophrenia and mental retardation who is currently living at a [facility] HISTORY OF PRESENT ILLNESS: The patient presented to the hospital as a direct transfer from [facility] after patient presented there 2 weeks after coming from [facility] with a bowel obstruction. At [facility] patient had a fever and suspected aspiration pneumonia and was transferred to [facility] to rule out sepsis and COVID 19. Psychiatry is consulted for "history of schizophrenia". Patient is being followed by surgery for a PEG tube placement and also neurology for investigation of abnormal movements. Patient had a brain CT scan done during her hospitalization which showed mild diffuse age-related atrophy and chronic small vessel changes with no acute hemorrhages. Tree Inspector spoke with nurse taking care of patient claims that patient has been having a tremor repeatedly throughout the day which has not changed h owever is not having any behavioral problems at this time. Nurse claims that patient's sister has stated that patients tremors are chronic. Patient was seen at the bedside and appeared to be following some direction by health technical writer however was nonverbal and made noises at times. Patient did have bilateral upper extremity as well as lower extremity tremors along with jaw tremor during examination. Isrrael barriga did have stiffness in her joints as well. Patient was not able to answer any questions. As per EMR, patient has been taking Depakote sprinkles prior to admission along with Haldol and Cogentin 3 times a day for the tremors. PAST PSYCHIATRIC HISTORY: Patient apparently has history of schizophrenia and developmental delay. Patient was on Haldol 5 mg twice a day and also taking Depakote sprinkles at home along with Cogentin 3 times a day for her tremors. PAST MEDICAL HISTORY: COPD, hyperlipidemia, seizures, hearing loss, history of head injury. ALLERGIES: as per EMR. CHEMICAL DEPENDENCY HISTORY: Unable to assess as patient is nonverbal. FAMILY PSYCHIATRIC/SUBSTANCE USE HISTORY: Unable to assess as patient is nonverbal. SOCIAL HISTORY: Unable to assess as patient is nonverbal.. MENTAL STATUS EXAM: General Appearance: Patient appears to be stated age is alert, follows some commands and is shaking both of her arms bilaterally. Patient appears to have fair hygiene and grooming wearing hospital gown with fair eye contact. Behavior: Patient is lying in bed and shaking her arms repeatedly. Patient does have muscle stiffness in her upper extremities Speech: Patient's speech is fluent and nonpressured. Mood/Affect: Unable to assess as patient is nonverbal. Suicidality/Homicidality: Unable to assess as patient is nonverbal. Perceptions: Unable to assess as patient is nonverbal. Though content/process: Unable to assess as patient is nonverbal. Memory and concentration: Unable to assess as patient is nonverbal. Patient does follow some commands. Judgment and insight: poor IMPRESSIONS: Schizophrenia unspecified Abnormal movements - resting tremor possibly secondary to medications. PLAN: -At this time patient DOES NOT meet criteria for inpatient psychiatric ad mission. -Delirium precautions recommended with patient including - avoiding use of narcotics and AWS CONSULTANT sedatives, limit anticholinergic medications when possible, frequent re-orientation, minimize use of restraints, open window shades during the day and close them at night -Would recommend the following medication changes/additions: Can continue with haloperidol 5 mg twice a day as this is her home medication. Can start Depakene syrup 250 mg twice a day tomorrow for seizure disorder and can be titrated up as needed after Depakote level comes back. We'll give Cogentin 0.5 mg twice a day IM today and will continue with her home dose of 0.5 mg PO 3 times a day tomorrow for tremors. -Continue with neurology recommendations for EEG and blood work. -Will follow along if needed, please contact with any questions. Patient to be returning back to her [facility] once she is medically stable.
[2020-02-14] MEDS: BENZTROPINE 2 MG/2 ML AMP IM SCH ×2 (14:45→20:52)
--- NOTE | 2020-02-14 15:24 | XR ---
EXAMINATION TYPE: XR chest 1V portable DATE OF EXAM: 02/14/2020 Comparison: 02/12/[address] 02/08/2020 Clinical History: 59-year-old female shortness of breath Findings: Patient rotated towards the left altering the normal mediastinal contours. Stable right paratracheal soft tissue prominence in keeping with the patient's right-sided aortic arch seen on recent CT. Heart normal size. No consolidation or pleural effusion. Impression: Right-sided density in keeping with a right-sided aortic arch. No acute cardiopulmonary process.
[2020-02-14] MEDS ORDERED: levETIRAcetam IV 500 MG in SODIUM CHLORIDE 0.9% 100 ML IVPB STA (15:38)
[2020-02-14] MEDS: SODIUM CHLORIDE 0.9% 1,000 ML IV SCH (16:01)
--- NOTE | 2020-02-14 16:30 | EEG ---
ELECTROENCEPHALOGRAM REPORT DATE OF SERVICE: 02/14/2020. HISTORY: This is an inpatient EEG performed on a 59-year-old female with profound developmental delay and history of schizophrenia. The patient is having nonstop rhythmic and semi rhythmic movements in the upper and lower extremities suspicious for seizure activity. The patient has been on medications for tremor, Cogentin. Patient also has been on Depakote in the past. Currently, the patient is not on Depakote or much of her p.o. medications because she is awaiting PEG placement. At the time of this EEG, however, the patient did undergo a PEG placement. TECHNICAL REPORT: This is an inpatient EEG performed on the [facility] EEG monitor with electrodes placed according to the International 10-20 system and a single EKG channel. Simultaneous video EEG monitoring was performed. This EEG was reviewed in both longitudinal bipolar, common average referential and transverse montages. Photic stimulation was performed. Hyperventilation was not performed due to patient's mental capacity. The recording begins with excessive motion and movement artifact making the recording technically difficult to interpret. When the EEG is standard high-frequency filter at 70 Hz, the rhythmic movement has a characteristic of spike and slow wave discharges with excessive motion artifact superimposed. With adjusting the high potency filtered down to 15, the activity appears closely resemble electrographic seizure activity occurring in a generalized fashion throughout the study. During the EEG, the patient is having semi rhythmic and rhythmic movements in the upper extremities and in the lower extremities to a lesser extent. No clear awake background is quite discerned. The background in both the right and left posterior head rate region is at 5 Hz. The patient's eyes are open appearing currently to be awake. This is significantly slow for this patient's stated age. Photic stimulation was performed at various flash frequencies and failed to elicit consistent driving response. No sleep was achieved during this stay. At one point the patient was trying to communicate with her hand at 12:15:59. This was associated with no change in the background. The background rhythm still consists of the 5 Hz. At 12:57:34, the patient apparently was trying to talk to the technologist. This was associated now with slow or tapping rhythmic moving of hands. At 13:04:14 the technologist notes that the patient does appear awake and is tracking. Her background is 5 Hz again, symmetric, [id number] amplitude. IMPRESSION: This is an abnormal study due to the severely slow background for this patient's stated age during wakefulness. A normal wake background for adult is 18-13 Hz, while this patient's background rhythm is at 5 hertz. Clinically, the patient was doing rhythmic and semi rhythmic movements of the upper extremities and to a lesser extent the legs. This was associated with movement artifact. However, the movement artifact was extremely synchronous and suspicious for electrographic seizure activity. When high-frequency filter was adjusted to better view the abnormalities, this essentially consisted of electrographic status. RECOMMENDATIONS: 1. Nurse notified that this patient may be in electrographic status. A verbal order for Keppra 500 mg IV was ordered. 2. If clinically indicated, an MRI of the brain without contrast may help rule out an underlying congenital anomaly or cortical dysplasia. 3. This patient does have increased seizure risk and should be maintained on appropriate anticonvulsant medication with a followup EEG. MMMARCY / JOVANI: [id number] / MTDD
--- NOTE | 2020-02-14 17:11 | PN ---
PROGRESS NOTE DATE OF SERVICE: 02/14/2020 This is a 59-year-old woman who was admitted with significant dysphagia as well as aspiration pneumonia, had a PEG tube placement because of those reasons and tube feeds are initiated. Patient also had abnormal movements. Patient needs multiple medications which could not be given because of the dysphagia. Neurology and Psychiatry have been consulted. Medication adjusted. The medications are to start once the patient is p.o. with PEG feeds. Otherwise, intramuscular dose also been planned as an interim strategy. The patient is currently confused, unable to give a coherent history. PAST MEDICAL HISTORY: Reviewed. Could not be taken because of above mentioned reasons. CURRENT MEDICATIONS: Reviewed and include: 1. Cogentin 0.5 mg b.i.d. 2. Haldol 0.5 mg IM daily. 3. Heparin 5 subcu b.i.d. 4. Dilaudid 0.5 mg daily. 5. Keppra 500 mg. 6. Narcan 0.2 q.2 p.r.n. 7. Protonix 40 mg daily. 8. Zosyn 3.5 IV q.8. 9. Depakote 250 mg per PEG. PHYSICAL EXAM: Patient is conscious but confused. Pulse 81, blood pressure 120/61 respiration 18, temperature 97.8, T-max 100.4, pulse ox 94% on room air. HEENT: Conjunctivae normal, oral mucosa moist. NECK: No jugular venous distention. No lymph node enlargement. CARDIOVASCULAR SYSTEM: S1, S2, muffled. RESPIRATION: Breath sounds diminished at the bases, a few scattered rhonchi. No crackles. ABDOMEN: Soft, nontender. PEG tube in place. LEGS: No edema, no swelling. NERVOUS SYSTEM: Diffusely weak. LABS: At this time, WBC 4.2, hemoglobin is 11 and MCV 106, 6.6, sodium 130, potassium 3.7. Ferritin is 354. Valproic acid less than 10. ASSESSMENT: 1. Fever, possible aspiration pneumonia with possible sepsis, present on admission. 2. Change in mental status with metabolic encephalopathy, acute on chronic. 3. Dysphagia, status post PEG tube placement for NG tube feeds for dysphagia and aspiration pneumonia. 4. Anemia, normocytic. 5. Hyponatremia. 6. Hypoalbuminemia with mild protein calorie malnutrition. 7. History of recent laparotomy with colostomy for bowel obstruction from elsewhere. 8. History of chronic obstructive pulmonary disease. 9. Hypertension. 10.Hyperlipidemia. 11.Seizure disorder. 12.Sleep apnea. 13.History of syncope. 14.History of mental retardation, history of pancytopenia. 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 16.History of pericardial cyst. 17.History of right-sided aortic arch. 18.History of bronchial asthma, chronic, intermittent. 19.History of chronic constipation. 20.History of left salivary gland removal. 21.History of bipolar depression. 22.FULL CODE. RECOMMENDATION: In this 59-year-old woman who presented with multiple complex medical issues, at this time, we have inserted a PEG tube by Surgery for dysphagia and aspiration pneumonia and need for continued tube feeds to maintain nutrition as well as administrations of medications Otherwise, the patient has continued fever which is slightly concern at this time. The patient's COVID testing was negative but; however, the C-reactive is elevated. Will continue to monitor. I would also recommend LDH and as well as a procalcitonin level also. We will continue to monitor, closely follow and if the patient continues to be febrile, will also obtain an Infectious Disease consultation. Otherwise, aspiration precautions. Closely follow with current physicians. The Psych recommendations are appreciated. Will continue to monitor and Neurology also seeing the patient. EEG has been done. Will await the EEG reports. Overall prognosis guarded because of multiple complex medical issues as mentioned earlier. Further recommendations to follow. ECF rehab is also recommended. JAIME / JOVANI: [id number] / MTDD
[2020-02-14] MEDS: LACTATED RINGERS 1,000 ML IV SCH (20:54)
[2020-02-14] MEDS: levETIRAcetam IV 500 MG in SODIUM CHLORIDE 0.9% 100 ML IVPB SCH (23:01)
--- NOTE | 2020-02-15 07:06 | XR ---
EXAMINATION TYPE: XR chest 1V portable DATE OF EXAM: 02/15/2020 CLINICAL HISTORY: Difficulty breathing progress study. TECHNIQUE: Single AP portable upright view of the chest is obtained. COMPARISON: Chest x-ray from one day earlier FINDINGS: Cardiac silhouette size stable and within normal limits. Lungs remain clear. Osseous struc tures are intact. Contrast within left-sided colonic loops redemonstrated. Right peritracheal soft ti ssue fullness unchanged. IMPRESSION: No new suspicious acute pulmonary process. No significant change from one day earlier.
[2020-02-15] MEDS: VALPROIC ACID ORAL SOLN 250 MG/5 ML CUP PEG/G-TUBE SCH ×2 (07:11→20:47)
[2020-02-15] MEDS: BENZTROPINE MESYLATE 0.5 MG TAB PO SCH ×3 (07:11→20:47)
[2020-02-15] MEDS: PIPERACILLIN-TAZOBACTAM 3.375 GM in SODIUM CHLORIDE 0.9% 100 ML IVPB SCH ×3 (07:20→23:49)
[2020-02-15] MEDS: HALOPERIDOL LACTATE 5 MG/ML 1 ML VIAL IM SCH (07:21)
[2020-02-15] MEDS: HEPARIN SODIUM,PORCINE 5,000 UNIT/ML 1 ML VIAL SQ SCH ×2 (07:21→20:47)
[2020-02-15] MEDS: PANTOPRAZOLE 40 MG/10 ML VIAL IVP SCH (07:21)
[2020-02-15 08:27] LABS: African American GFR (CKD) >90 (>60 ml/min/1.73 sqM); Anion Gap 17 mmol/L; Blood Urea Nitrogen 9 mg/dL (7-17); Carbon Dioxide 17 mmol/L (22-30); Chloride 106 mmol/L (98-107); Glucose 72 mg/dL (74-99); LDH 788 U/L (313-618); Non-African American GFR(CKD) >90 (>60 ml/min/1.73 sqM); Sodium 140 mmol/L (137-145)
[2020-02-15 09:11] LABS: Anisocytosis Slight; Basophils % (A) 1 %; Eosinophils % (A) 1 %; HCT 33.4 % (34.0-46.0); HGB 10.2 gm/dL (11.4-16.0); Hypochromasia Marked; Lymphocytes # (A) 0.5 k/uL (1.0-4.8); Lymphocytes % (A) 13 %; MCH 32.9 pg (25.0-35.0); MCHC 30.5 g/dL (31.0-37.0); MCV 107.9 fL (80.0-100.0); Macrocytosis Marked; Mean Platelet Volume 8.1; Monocytes # (A) 0.1 k/uL (0-1.0); Monocytes % (A) 3 %; Neutrophils # (A) 3.2 k/uL (1.3-7.7); Neutrophils % (A) 82 %; Platelet Count 252 k/uL (150-450); RDW 17.2 % (11.5-15.5)
[2020-02-15 10:00] LABS: C Reactive Protein 18.7 mg/L (<10.0)
[2020-02-15] MEDS: levETIRAcetam IV 500 MG in SODIUM CHLORIDE 0.9% 100 ML IVPB SCH ×2 (11:52→23:16)
--- NOTE | 2020-02-15 12:39 | P.PN ---
Subjective Progress Note Date: 02/15/20 Principal diagnosis: Possible aspiration 59-year-old white female patient of Dr. Valenzuela, with multiple medical problems including history of seizure disorder, cognitive deficit, dysphagia, hearing deficit, COPD/chronic bronchial asthma, history of chronic constipation, chronic venous insufficiency, who resides in the halfway setting. Patient was recently hospitalized in [facility] with a bowel obstruction, and underwent colectomy and colostomy approximately 2 weeks ago. Patient apparently presented to [facility] for evaluation of fever, and diminished oral intake. Was a concern about aspiration pneumonia and patient was transferred to [facility] for further evaluation and treatment. Patient was started on Zosyn for empiric antibiotic coverage, her chest x-ray from 02/12/2020 shows no focal infiltrates. Outside CT chest film reviewed, showing no evidence of acute focal infiltrates. At the time of our evaluation patient is resting quietly in bed, room air pulse ox is 98%, afebrile, hemodynamically stable, she is non-verbal, but does not appear to be in any respiratory distress. She is nothing by mouth for possibility of aspiration, we will have speech therapy evaluate her swallowing ability. Surgical consult has been placed with Dr. Chow in view of recent surgery for bowel obstruction. KUB of the abdomen showed overall nonobstructive bowel gas pattern. On 02/14/2020 patient seen in follow-up on general medical floor. She is awake, she is unable to respond verbally or follow any command, she is noted to have increased involuntary movements and she was evaluated by neurology. She did have a low-grade fever this morning with a temp of 100.4F, but does not appear to be in any respiratory distress, room air pulse ox is 95%, lung sounds are positive for diminished breath sounds at the bases, with a few scattered rhonchi. Patient remains on Zosyn for us to believe aspiration pneumonia and she's been afebrile, blood cultures have been negative. Patient was unable to complete follow-up evaluation related to difficulty following commands, PEG tube placement was recommended the patient is scheduled to undergo PEG tube placement today by Dr. Chow On 02/15/2020 patient seen in follow-up on general medical floor, he status post PEG tube insertion, we anticipate starting tube feedings today, however patient has developed febrile episodes, with a T-max of 102.5F this morning, on follow- up chest x-ray was reviewed showing no acute suspicious pulmonary process. Sounds are clear, diminished at the bases, vitals are stable, she is on room air pulse ox of 94-96%, she has been nothing by mouth. Breathing seems to be nonlabored, no cough or congestion, patient remains on Zosyn for empiric a ntibiotic coverage. Will culture has shown no growth. It is labs have been reviewed showing white blood cell count of 4.0, hemoglobin of 10.2, sodium of 140, potassium is 3.0, chloride is 106, CO2 17, BUN of 9 creatinine 0.72. Objective - Vital Signs Vital signs: Vital Signs Temp 98.4 F 02/15/20 08:30 Pulse 81 02/15/20 07:00 Resp 18 02/15/20 07:00 BP 163/60 02/15/20 07:00 Pulse Ox 96 02/15/20 07:00 Intake & Output 02/14/20 02/15/20 02/15/20 18:59 06:59 18:59 Intake Total 100 100 0 Balance 100 100 0 Weight 68 kg Intake: IV 100 Intake, IV Titration 100 Amount Piperacillin-Tazobactam 3 100 .375 gm In Sodium Chloride 0.9% 100 ml @ 25 mls/hr IVPB Q8HR [facility] Rx# :[id number] Oral 0 Other: Voiding Method Incontinent Diaper Incontinent # Voids 4 # Bowel Movements 1 - Exam GENERAL EXAM: Alert, 59-year-old female, resting comfortably in bed, on room air, patient is nonverbal, appears to have improvement in involuntary movements of upper extremities, and upper body, no apparent distress. She has increased spasticity and upper and lower extremities HEAD: Normocephalic/atraumatic. EYES: Normal reaction of pupils, equal size. Conjunctiva pink, sclera white. NOSE: Clear with pink turbinates. THROAT: No erythema or exudates. NECK: No masses, no JVD, no thyroid enlargement, no adenopathy. CHEST: No chest wall deformity. Symmetrical expansion. LUNGS: Equal air entry with no crackles, wheeze, rhonchi or dullness. CVS: Regular rate and rhythm, normal S1 and S2, no gallops, no murmurs, no rubs ABDOMEN: Soft, nontender. No hepatosplenomegaly, normal bowel sounds, no guarding or rigidity. Patient has colostomy in place EXTREMITIES: No clubbing, no edema, no cyanosis, 2+ pulses and upper and lower extremities. MUSCULOSKELETAL: Muscle strength and tone normal. SPINE: No scoliosis or deformity SKIN: No rashes CENTRAL NERVOUS SYSTEM: Unable to assess, patient is nonverbal - Labs CBC & Chem 7: 02/15/20 08:33 02/15/20 07:43 Labs: Abnormal Lab Results - Last 24 Hours (Table) 02/15/20 02/15/20 02/15/20 Range/Units 07:43 07:43 08:33 RBC 3.10 L (3.80-5.40) m/uL Hgb 10.2 L (11.4-16.0) gm/dL Hct 33.4 L (34.0-46.0) % MCV 107.9 H (80.0-100.0) fL MCHC 30.5 L (31.0-37.0) g/dL RDW 17.2 H (11.5-15.5) % Lymphocytes # 0.5 L (1.0-4.8) k/uL Macrocytosis Marked A D-Dimer 1.13 H (<0.60) mg/L FEU Potassium 3.0 L (3.5-5.1) mmol/L Carbon Dioxide 17 L (22-30) mmol/L Glucose 72 L (74-99) mg/dL Calcium 8.0 L (8.4-10.2) mg/dL Lactate Dehydrogenase 788 H (313-618) U/L C-Reactive Protein 18.7 H (<10.0) mg/L Microbiology - Last 24 Hours (Table) 02/12/20 15:54 Blood Culture - Preliminary Blood No Growth after 48 hours Assessment and Plan Plan: Assessment: #1. Acute febrile illness rule out possibility of aspiration pneumonia, chest x-ray showed no focal infiltrates, outside CT chest shows no acute pulmonary process. COVID 19 ruled out #2. Chronic dysphagia, rule out chronic aspiration #3. History of seizure disorder #4. Chronic cognitive deficit #5. Recent history of bowel obstruction status post colectomy and colostomy. KUB abdomen showing nonobstructive bowel pattern #6. History of sleep apnea #7. History of chronic bronchial asthma, unspecified #8. His trip chronic constipation #9. History of bipolar depression #10. Hyperlipidemia Plan: Follow-up chest x-ray has shown no acute pulmonary process, patient is on room air however she is having fever spikes, would recommend sending a urinalysis with the urine culture. She remains nothing by mouth, PEG tube has been placed, continue Zosyn for empiric antibiotic coverage, and blood cultures have been obtained and sent. Will follow her clinical course I performed a history & physical examination of the patient and discussed their management with my nurse practitioner, Jessika Nix. I reviewed the nurse pr actitioner's note and agree with the documented findings and plan of care. Lung sounds are positive for clear breath sounds. The findings and the impression was discussed with the patient. I attest to the documentation by the nurse practitioner. Time with Patient: Less than 30
--- NOTE | 2020-02-15 14:39 | P.PN ---
Subjective Progress Note Date: 02/15/20 CHIEF COMPLAINT: PEG tube insertion HISTORY OF PRESENT ILLNESS: Patient is status post PEG tube insertion with Dr. Chow. Postop day #1. Patient is resting comfortable in bed. PHYSICAL EXAM: VITAL SIGNS: Reviewed. GENERAL: Well-developed in no acute distress. HEENT: No sclera icterus. Extraocular movements grossly intact. Moist buccal mucosa. Head is atraumatic, normocephalic. ABDOMEN: Soft. Nondistended. Nontender. Colostomy noted with stool output. PEG tube intact. NEUROLOGIC: Awake. Nonverbal at baseline ASSESSMENT: 1. Possible aspiration pneumonia 2. Dysphagia 3. Moderate protein calorie malnutrition 4. Recent colectomy with colostomy creation secondary to bowel obstruction PLAN: Okay to begin tube feedings via PEG tube today per dietary recommendations Nurse practitioner note has been reviewed by physician. Signing provider agrees with the documented findings, assessment, and plan of care. Objective - Vital Signs Vital signs: Vital Signs Temp 98.4 F 02/15/20 08:30 Pulse 81 02/15/20 07:00 Resp 18 02/15/20 07:00 BP 163/60 02/15/20 07:00 Pulse Ox 96 02/15/20 07:00 Intake & Output 02/14/20 02/15/20 02/15/20 18:59 06:59 18:59 Intake Total 100 100 30 Balance 100 100 30 Weight 68 kg Intake: IV 100 Intake, IV Titration 100 Amount Piperacillin-Tazobactam 3 100 .375 gm In Sodium Chloride 0.9% 100 ml @ 25 mls/hr IVPB Q8HR [facility] Rx# :[id number] Oral 0 Tube Feeding 30 Other: Voiding Method Incontinent Diaper Incontinent # Voids 4 # Bowel Movements 1 - Labs CBC & Chem 7: 02/15/20 08:33 02/15/20 07:43 Labs: Abnormal Lab Results - Last 24 Hours (Table) 02/15/20 02/15/20 02/15/20 Range/Units 07:43 07:43 08:33 RBC 3.10 L (3.80-5.40) m/uL Hgb 10.2 L (11.4-16.0) gm/dL Hct 33.4 L (34.0-46.0) % MCV 107.9 H (80.0-100.0) fL MCHC 30.5 L (31.0-37.0) g/dL RDW 17.2 H (11.5-15.5) % Lymphocytes # 0.5 L (1.0-4.8) k/uL Macrocytosis Marked A D-Dimer 1.13 H (<0.60) mg/L FEU Potassium 3.0 L (3.5-5.1) mmol/L Carbon Dioxide 17 L (22-30) mmol/L Glucose 72 L (74-99) mg/dL Calcium 8.0 L (8.4-10.2) mg/dL Lactate Dehydrogenase 788 H (313-618) U/L C-Reactive Protein 18.7 H (<10.0) mg/L Microbiology - Last 24 Hours (Table) 02/12/20 15:54 Blood Culture - Preliminary Blood No Growth after 48 hours
[2020-02-15] MEDS ORDERED: IPRATROPIUM-ALBUTEROL 3 ML NEB INHALATION PRN (15:05)
[2020-02-15] MEDS: SODIUM CHLORIDE 0.9% 1,000 ML IV SCH (15:40)
[2020-02-15 15:41] LABS: Appearance,Urine Clear (Clear); Bilirubin,Urine Negative (Negative); Blood,Urine Negative (Negative); Color,Urine Yellow; Glucose,Urine (UA) Negative (Negative); Ketones,Urine 4+ (Negative); Leukocyte Esterase,Urine Negative (Negative); Nitrite,Urine Negative (Negative); Protein,Urine Trace (Negative); Specific Gravity,Urine 1.022 (1.001-1.035); Urobilinogen,Urine <2.0 mg/dL (<2.0)
[2020-02-15] MEDS: ERGOCALCIFEROL 50,000 UNIT CAP PO SCH ×2 (15:42→15:54)
[2020-02-15] MEDS ORDERED: BENZTROPINE MESYLATE 0.5 MG TAB PO SCH (16:00)
[2020-02-15] MEDS ORDERED: DIVALPROEX SPRINKLE 125 MG CAP.SPRINK PO SCH (16:00)
--- NOTE | 2020-02-15 16:57 | PN ---
PROGRESS NOTE DATE OF SERVICE: 02/15/2020 This 59-year-old woman was admitted with a fever and possible aspiration pneumonia also had PEG tube implantation because of dysphagia as well as diminished p.o. intake and multiple other medical problems. The patient continues to be confused. The patient also had involuntary irregular movements. She has been also seen by Psychiatry and Neurology. Medication was adjusted at this time. Patient is being closely monitored. Past medical history reviewed. Review of systems could not be taken, as the patient is confused. The patient is also running a fever up to 102.5. CURRENT MEDICATIONS: Reviewed. They include: 1. Cogentin 0.5 mg p.o. t.i.d. 2. Haldol 5 mg p.o. daily. 3. Heparin 5000 units subcutaneously b.i.d. 4. Dilaudid p.r.n. 5. Lac-Hydrin. 6. Keppra 500 mg. 7. Protonix. 8. Zosyn. 9. Depakote. PHYSICAL EXAMINATION: Patient is conscious, confused, delirious. Respiration 18. Blood pressure is 160/60, temperature 96 degrees. HEENT: Conjunctivae normal. NECK: No jugular venous distention. CARDIOVASCULAR SYSTEM: S1, S2 muffled. RESPIRATORY SYSTEM: Breath sounds diminished at the bases. Scattered rhonchi and crackles. ABDOMEN: Soft, non-tender. Status post PEG tube placement. LEGS: No edema. No swelling. NERVOUS SYSTEM: No focal deficit. LABS: WBC 4, hemoglobin 10.2. D-dimer is 1.13, potassium 3. Ferritin is 354. CRP is 53.9. TSH is 5.99. ASSESSMENT: 1. Fever, possible aspiration pneumonia with possible sepsis, present on admission. 2. Change in mental status with metabolic encephalopathy, acute on chronic. 3. Dysphagia as well as aspiration pneumonia, status post PEG tube placement. 4. Anemia, normocytic. 5. Hyponatremia. 6. Hypoalbuminemia with mild protein-calorie malnutrition. 7. History of recent laparotomy as well as colostomy with bowel obstruction from elsewhere. 8. History of chronic obstructive pulmonary disease. 9. Hypertension. 10.Hyperlipidemia. 11.Seizure disorder. 12.Coarse tremors. 13.Sleep apnea. 14.History of syncope. 15.History of mental retardation. 16.History of pancytopenia. 17.History of sensorineural hearing defects on the left ear. 18.History of pericarditis. 19.History of right-sided aortic arch. 20.History of bronchial asthma, chronic intermittent. 21.History of chronic constipation. 22.History of left salivary gland removal. 23.History of bipolar depression. 24.Hypokalemia. 25.FULL CODE. RECOMMENDATIONS AND DISCUSSION: I recommend to continue current medications, continue with the monitoring, symptomatic treatment. Will continue to monitor. Supplement potassium. Will continue with broad- spectrum antibiotics. If the fever continues, we will obtain an infectious disease evaluation. Prognosis is guarded. Further recommendations to follow. See orders for further details. MMODL / IJN: [id number] /
[2020-02-15] MEDS: LACTATED RINGERS 1,000 ML IV SCH (20:47)
[2020-02-16] MEDS: ACETAMINOPHEN TAB 325 MG TAB PO PRN (04:58)
[2020-02-16] MEDS: HALOPERIDOL 5 MG TAB PO SCH (07:23)
[2020-02-16] MEDS: HEPARIN SODIUM,PORCINE 5,000 UNIT/ML 1 ML VIAL SQ SCH ×2 (07:23→20:45)
[2020-02-16] MEDS: PANTOPRAZOLE 40 MG/10 ML VIAL IVP SCH (07:23)
[2020-02-16] MEDS: AMIODARONE 200 MG TAB PO SCH (07:23)
[2020-02-16] MEDS: BENZTROPINE MESYLATE 0.5 MG TAB PO SCH ×3 (07:23→20:45)
[2020-02-16] MEDS: VALPROIC ACID ORAL SOLN 250 MG/5 ML CUP PEG/G-TUBE SCH ×2 (07:23→20:45)
[2020-02-16] MEDS: PIPERACILLIN-TAZOBACTAM 3.375 GM in SODIUM CHLORIDE 0.9% 100 ML IVPB SCH ×3 (07:24→23:42)
[2020-02-16 07:51] LABS: Anisocytosis Slight; Basophils % (A) 1 %; Eosinophils % (A) 1 %; HCT 33.7 % (34.0-46.0); HGB 10.5 gm/dL (11.4-16.0); Hypochromasia Marked; Lymphocytes # (A) 0.6 k/uL (1.0-4.8); Lymphocytes % (A) 14 %; MCH 32.7 pg (25.0-35.0); MCHC 31.2 g/dL (31.0-37.0); Macrocytosis Moderate; Mean Platelet Volume 8.1; Monocytes # (A) 0.2 k/uL (0-1.0); Monocytes % (A) 5 %; Neutrophils # (A) 3.8 k/uL (1.3-7.7); Neutrophils % (A) 79 %; Platelet Count 230 k/uL (150-450); RBC 3.21 m/uL (3.80-5.40); RDW 16.8 % (11.5-15.5); WBC 4.8 k/uL (3.8-10.6)
[2020-02-16 08:00] LABS: African American GFR (CKD) >90 (>60 ml/min/1.73 sqM); Anion Gap 9 mmol/L; Blood Urea Nitrogen 13 mg/dL (7-17); Calcium 8.2 mg/dL (8.4-10.2); Carbon Dioxide 25 mmol/L (22-30); Chloride 106 mmol/L (98-107); Glucose 153 mg/dL (74-99); Non-African American GFR(CKD) >90 (>60 ml/min/1.73 sqM); Sodium 140 mmol/L (137-145)
[2020-02-16 08:21] LABS: Potassium 2.7 mmol/L (3.5-5.1)
[2020-02-16] MEDS ORDERED: Potassium Replacement Protocol 1 EACH MISC MISCELLANE PRN ×2 (08:21→18:06)
[2020-02-16] MEDS: POTASSIUM CHLORIDE 20 MEQ in WATER FOR INJECTION 1 100ML.BAG IVPB SCH ×5 (09:06→22:49)
[2020-02-16] MEDS: IOPAMIDOL CONTRAST (ORAL USE) VIAL PO PRN ×2 (11:27→12:48)
--- NOTE | 2020-02-16 12:43 | P.PN ---
Subjective Progress Note Date: 02/16/20 CHIEF COMPLAINT: PEG tube insertion HISTORY OF PRESENT ILLNESS: Patient is status post PEG tube insertion with Dr. Chow. Postop day #2. Patient is resting comfortably in bed. Tube feedings infusing. Patient tolerating well. PHYSICAL EXAM: VITAL SIGNS: Reviewed. GENERAL: Well-developed in no acute distress. HEENT: No sclera icterus. Extraocular movements grossly intact. Moist buccal mucosa. Head is atraumatic, normocephalic. ABDOMEN: Soft. Nondistended. Nontender. Colostomy noted with stool output. PEG tube intact. NEUROLOGIC: Awake. Nonverbal at baseline ASSESSMENT: 1. Possible aspiration pneumonia 2. Dysphagia 3. Moderate protein calorie malnutrition 4. Recent colectomy with colostomy creation secondary to bowel obstruction PLAN: Continue tube feedings as tolerated Nurse practitioner note has been reviewed by physician. Signing provider agrees with the documented findings, assessment, and plan of care. Objective - Vital Signs Vital signs: Vital Signs Temp 99.5 F 02/16/20 07:00 Pulse 91 02/16/20 07:00 Resp 18 02/16/20 07:00 BP 123/79 02/16/20 07:00 Pulse Ox 96 02/16/20 07:00 Intake & Output 02/15/20 02/16/20 02/16/20 18:59 06:59 18:59 Intake Total 30 280 180 Balance 30 280 180 Weight 68 kg 66.5 kg Intake: Oral 0 Tube Feeding 30 280 180 Other: Voiding Method Diaper Incontinent - Labs CBC & Chem 7: 02/16/20 07:25 02/16/20 07:25 Labs: Abnormal Lab Results - Last 24 Hours (Table) 02/15/20 02/16/20 02/16/20 Range/Units 15:25 07:25 07:25 RBC 3.21 L (3.80-5.40) m/uL Hgb 10.5 L (11.4-16.0) gm/dL Hct 33.7 L (34.0-46.0) % MCV 105.0 H (80.0-100.0) fL RDW 16.8 H (11.5-15.5) % Lymphocytes # 0.6 L (1.0-4.8) k/uL Potassium 2.7 L* (3.5-5.1) mmol/L Glucose 153 H (74-99) mg/dL Calcium 8.2 L (8.4-10.2) mg/dL Urine Protein Trace H (Negative) Urine Ketones 4+ H (Negative) Microbiology - Last 24 Hours (Table) 02/12/20 15:54 Blood Culture - Preliminary Blood No Growth after 72 hours
[2020-02-16] MEDS: levETIRAcetam IV 500 MG in SODIUM CHLORIDE 0.9% 100 ML IVPB SCH ×2 (12:46→23:25)
--- NOTE | 2020-02-16 13:50 | P.PN ---
Subjective Progress Note Date: 02/16/20 Principal diagnosis: Suspected aspiration 59-year-old white female patient of Dr. Valenzuela, with multiple medical problems including history of seizure disorder, cognitive deficit, dysphagia, hearing deficit, COPD/chronic bronchial asthma, history of chronic constipation, chronic venous insufficiency, who resides in the assisted setting. Patient was recently hospitalized in [facility] with a bowel obstruction, and underwent colectomy and colostomy approximately 2 weeks ago. Patient apparently presented to [facility] for evaluation of fever, and diminished oral intake. Was a concern about aspiration pneumonia and patient was transferred to [facility] for further evaluation and treatment. Patient was started on Zosyn for empiric antibiotic coverage, her chest x-ray from 02/12/2020 shows no focal infiltrates. Outside CT chest film reviewed, showing no evidence of acute focal infiltrates. At the time of our evaluation patient is resting quietly in bed, room air pulse ox is 98%, afebrile, hemodynamically stable, she is non-verbal, but does not appear to be in any respiratory distress. She is nothing by mouth for possibility of aspiration, we will have speech therapy evaluate her swallowing ability. Surgical consult has been placed with Dr. Chow in view of recent surgery for bowel obstruction. KUB of the abdomen showed overall nonobstructive bowel gas pattern. On 02/14/2020 patient seen in follow-up on general medical floor. She is awake, she is unable to respond verbally or follow any command, she is noted to have increased involuntary movements and she was evaluated by neurology. She did have a low-grade fever this morning with a temp of 100.4F, but does not appear to be in any respiratory distress, room air pulse ox is 95%, lung sounds are positive for diminished breath sounds at the bases, with a few scattered rhonchi. Patient remains on Zosyn for us to believe aspiration pneumonia and she's been afebrile, blood cultures have been negative. Patient was unable to complete follow-up evaluation related to difficulty following commands, PEG tube placement was recommended the patient is scheduled to undergo PEG tube placement today by Dr. Chow On 02/15/2020 patient seen in follow-up on general medical floor, he status post PEG tube insertion, we anticipate starting tube feedings today, however patient has developed febrile episodes, with a T-max of 102.5F this morning, on follow- up chest x-ray was reviewed showing no acute suspicious pulmonary process. Sounds are clear, diminished at the bases, vitals are stable, she is on room air pulse ox of 94-96%, she has been nothing by mouth. Breathing seems to be nonlabored, no cough or congestion, patient remains on Zosyn for empiric antibiotic coverage. Will culture has shown no growth. It is labs have been reviewed showing white blood cell count of 4.0, hemoglobin of 10.2, sodium of 140, potassium is 3.0, chloride is 106, CO2 17, BUN of 9 creatinine 0.72. The patient is seen today 02/16/2020 in follow-up on the regular medical floor. She is currently resting in bed. She is status post PEG tube placement. Still spiking fevers 101 earlier this morning. She is maintaining good O2 saturations in the 90s on room air. She's been hemodynamically stable. Blood cultures continued to show no growth. White count 4.8. Hemoglobin 10.5. Sodium 140. Potassium 2.7. Chloride 106. Bicarb 25. Creatinine 0.68. Urinalysis negative. She is continued on bronchodilators, Zosyn. Objective - Vital Signs Vital signs: Vital Signs Temp 99.5 F 02/16/20 07:00 Pulse 91 02/16/20 07:00 Resp 18 02/16/20 07:00 BP 123/79 02/16/20 07:00 Pulse Ox 96 02/16/20 07:00 Intake & Output 02/15/20 02/16/20 02/16/20 18:59 06:59 18:59 Intake Total 30 280 360 Balance 30 280 360 Weight 68 kg 66.5 kg 66.5 kg Intake: Oral 0 0 Tube Feeding 30 280 360 Other: Voiding Method Diaper Incontinent - Exam GENERAL EXAM: Alert, 59-year-old female, resting comfortably in bed, on room a ir, patient is nonverbal, continues to have involuntary movements of upper extremities, and upper body, no apparent distress. She has increased spasticity and upper and lower extremities HEAD: Normocephalic/atraumatic. EYES: Normal reaction of pupils, equal size. Conjunctiva pink, sclera white. NOSE: Clear with pink turbinates. THROAT: No erythema or exudates. NECK: No masses, no JVD, no thyroid enlargement, no adenopathy. CHEST: No chest wall deformity. Symmetrical expansion. LUNGS: Equal air entry with no crackles, wheeze, rhonchi or dullness. CVS: Regular rate and rhythm, normal S1 and S2, no gallops, no murmurs, no rubs ABDOMEN: Soft, nontender. No hepatosplenomegaly, normal bowel sounds, no guarding or rigidity. Patient has colostomy in place EXTREMITIES: No clubbing, no edema, no cyanosis, 2+ pulses and upper and lower extremities. MUSCULOSKELETAL: Muscle strength and tone normal. SPINE: No scoliosis or deformity SKIN: No rashes CENTRAL NERVOUS SYSTEM: Unable to assess, patient is nonverbal. Involuntary tremors - Labs CBC & Chem 7: 02/16/20 07:25 02/16/20 07:25 Labs: Abnormal Lab Results - Last 24 Hours (Table) 02/15/20 02/16/20 02/16/20 Range/Units 15:25 07:25 07:25 RBC 3.21 L (3.80-5.40) m/uL Hgb 10.5 L (11.4-16.0) gm/dL Hct 33.7 L (34.0-46.0) % MCV 105.0 H (80.0-100.0) fL RDW 16.8 H (11.5-15.5) % Lymphocytes # 0.6 L (1.0-4.8) k/uL Potassium 2.7 L* (3.5-5.1) mmol/L Glucose 153 H (74-99) mg/dL Calcium 8.2 L (8.4-10.2) mg/dL Urine Protein Trace H (Negative) Urine Ketones 4+ H (Negative) Microbiology - Last 24 Hours (Table) 02/15/20 10:22 Blood Culture - Preliminary Blood No Growth after 24 hours 02/15/20 10:22 Blood Culture - Preliminary Blood No Growth after 24 hours 02/12/20 15:54 Blood Culture - Preliminary Blood No Growth after 72 hours Assessment and Plan Assessment: #1. Acute febrile illness rule out possibility of aspiration pneumonia, chest x-ray showed no focal infiltrates, outside CT chest shows no acute pulmonary process. COVID 19 ruled out. Urinalysis clean. We'll obtain an computed tomography scan of the abdomen and pelvis #2. Chronic dysphagia, rule out chronic aspiration. Status post PEG tube placement on 02/14/2020 #3. History of seizure disorder #4. Chronic cognitive deficit #5. Recent history of bowel obstruction status post colectomy and colostomy. KUB abdomen showing nonobstructive bowel pattern #6. History of sleep apnea #7. History of chronic bronchial asthma, unspecified #8. His trip chronic constipation #9. History of bipolar depression #10. Hyperlipidemia #11. Involuntary tremors Plan: The patient was seen and evaluated by Dr. Friedman Continues with fever Urinalysis without acute infection Chest x-ray revealed no aspiration Obtain a computed tomography scan of the abdomen and pelvis Continue Zosyn for now We'll continue to follow I, the cosigning physician, performed a history & physical examination of the pa nithya. Lungs sounds are clear. Maintaining good O2 saturations in the 90s on room air. I discussed the assessment and plan of care with my nurse practitioner, Reyna Taylor. I attest to the above note as dictated by her.
--- NOTE | 2020-02-16 13:55 | CT ---
EXAMINATION TYPE: CT abdomen pelvis w con DATE OF EXAM: 02/16/2020 HISTORY: fever, abscess CT DLP: 1010mGycm Automated Exposure Control for Dose Reduction was Utilized. CONTRAST: CT scan of the abdomen and pelvis is performed with IV Contrast, patient injected with 100 mL of Isov ue 300. COMPARISON: CT chest dated 05/18/2019 FINDINGS: Patient motion limits the evaluation. LUNG BASES: Minimal bibasilar subsegmental atelectasis. Right lower lobe bleb is incidentally seen. T here is slight left hemidiaphragm elevation. LIVER/GB: Although there is motion the gallbladder does appear abnormal with hyperemic arce. Alterna tively this could relate to partial contraction.. PANCREAS: No significant abnormality is seen. SPLEEN: Positioning of the spleen appears slightly medial to the expected location and appears abnorm ally positioned on coronal image 72. ADRENALS: No significant abnormality is seen. KIDNEYS: Low-density probable left renal cyst is too small to accurately characterize measuring 7 mm of the upper pole. Multiple smaller hypoattenuated subcentimeter bilateral renal lesions are also too small to accurately characterize. BOWEL: Percutaneous enteric gastric tube is seen as well as left lower quadrant ostomy. Resection of the sigmoid and descending colon is noted. Redundancy of the splenic flexure. Moderate degree colonic fecal stasis. There is thickening of the terminal ileum haustra marked on image 66. There is a massl jaimee appearance of the cecum on coronal image 45. Appendix is not definitively identified. LYMPH NODES: No greater than 1cm abdominal or pelvic lymph nodes are appreciated. OSSEOUS STRUCTURES: Age-indeterminate compression deformity of L4 with approximately 20%. Minimal com pression deformity of T8 is unchanged from 05/18/2019. Old left inferior anterior healed rib fractures. Mild multilevel degenerative change of the spine. IMPRESSION: 1. Splenic malrotation best visualized on coronal image 71. No current appreciable hypoperfusion to s uggest ischemia. 2. Normal-appearing gallbladder that may partially relate to contraction. Correlate with serum labora tory values to determine the need for HIDA scan to further evaluate for acute cholecystitis. 3. Haustral thickening of the cecum. Considerations are for colitis, typhilitis, or neoplasm given th e masslike appearance on coronal image 45. This could be further evaluated with colonoscopy on a none mergent basis. Appendix is not identified.
[2020-02-16] MEDS: SODIUM CHLORIDE 0.9% 1,000 ML IV SCH (14:34)
[2020-02-16] MEDS ORDERED: Magnesium Replacement Protocol 1 EACH MISC MISCELLANE PRN (14:41)
--- NOTE | 2020-02-16 15:54 | PN ---
PROGRESS NOTE DATE OF SERVICE: 02/16/2020 This 59-year-old woman who was admitted with multiple medical problems, including aspiration pneumonia, had PEG tube placement. The patient is running some fever. The patient also has abnormal movements. The patient is on multiple psych medications. Psychiatry and Neurology are following the patient closely. Because of concerns, a CT scan of the abdomen and pelvis was done today which was personally reviewed by me. It shows splenic malrotation, normal-appearing gallbladder and some haustral thickening of the cecum. The patient is being admitted for further evaluation. The patient is confused, unable to provide any coherent history. As far as her labs are concerned, the white count is normal but the patient's potassium is severely low at 2.7. Past medical history reviewed. REVIEW OF SYSTEMS: CARDIOVASCULAR SYSTEM: No angina, palpitations. RESPIRATORY SYSTEM: As mentioned earlier. GI: As mentioned earlier. : No dysuria or retention. NERVOUS SYSTEM: No numbness, weakness. CURRENT MEDICATIONS: Reviewed. They include: 1. Tylenol 650 q.6 p.r.n. 2. DuoNeb q.i.d. and p.r.n. 3. Amiodarone 200 mg p.o. daily. 4. Cogentin 0.5 mg p.o. t.i.d. 5. Vitamin D2 50,000 daily. 6. Haldol 5 mg p.o. daily. 7. Heparin. 8. Dilaudid. 9. Keppra 500 mg b.i.d. 10.Ativan 1 mg p.o. t.i.d. 11.Narcan. 12.Protonix. 13.Zosyn 3.375 IV q.8. 14.Depakote 250 mg b.i.d. PHYSICAL EXAMINATION: Patient is alert and oriented . Pulse 91, blood pressure 123/70, respiration 18. Temperature is 99.5. T-max is 100.2, pulse ox 96% on room air. HEENT: Conjunctivae normal. NECK: No jugular venous distention. CARDIOVASCULAR SYSTEM: S1, S2 muffled. RESPIRATORY SYSTEM: Breath sounds diminished at the bases. A few scattered rhonchi and crackles. ABDOMEN: Soft. PEG tube in situ. LEGS: No edema. No swelling. NERVOUS SYSTEM: No focal deficit. LABS: WBC 4.8, hemoglobin 10.5, sodium 142, potassium 2.7. ASSESSMENT: 1. Fever, possible aspiration pneumonia, with possible sepsis, present on admission. 2. Change in mental status with acute metabolic encephalopathy, acute on chronic. 3. Dysphagia as well as aspiration pneumonia, status post PEG tube placement. 4. Continued fever. 5. Anemia, macrocytic. 6. Severe hypokalemia. 7. Hyponatremia. 8. Hypoalbuminemia with mild protein-calorie malnutrition. 9. History of recent laparotomy as well as colostomy and bowel obstruction from elsewhere. 10.History of chronic obstructive pulmonary disease. 11.Hypertension. 12.Hyperlipidemia. 13.History of seizure disorder. 14.History of coarse tremors. 15.Sleep apnea. 16.History of syncope. 17.History of mental retardation. 18.History of pancytopenia. 19.History of sensorineural hearing defects of the left ear. 20.History of pericardial cyst. 21.History of right-sided aortic arch. 22.History of bronchial asthma, chronic intermittent. 23.History of chronic constipation. 24.History of left salivary gland removal. 25.History of bipolar depression. 26.Hypokalemia. 27.FULL CODE. RECOMMENDATIONS AND DISCUSSION: I recommend to continue the current medications, continue with the monitoring, symptomatic treatment. Will continue to monitor, continue with symptomatic treatment with antibiotics. Cultures are negative so far. The most recent blood culture done yesterday was also negative. I recommend potassium supplementation. Otherwise, repeat labs. COVID-19 is negative. Prognosis guarded. Further recommendations to follow. Will adjust the psych medications and medications for abnormal movements along with Psych and Neurology. MMODL / IJN: [id number] / [facility] CENTERCarloz
[2020-02-16] MEDS: LACTATED RINGERS 1,000 ML IV SCH (20:44)
[2020-02-17] MEDS: POTASSIUM CHLORIDE 20 MEQ in WATER FOR INJECTION 1 100ML.BAG IVPB SCH (00:55)
[2020-02-17 04:12] LABS: Anisocytosis Slight; Basophils % (A) 0 %; Eosinophils % (A) 0 %; HCT 36.3 % (34.0-46.0); HGB 11.4 gm/dL (11.4-16.0); Hypochromasia Marked; Lymphocytes # (A) 0.5 k/uL (1.0-4.8); Lymphocytes % (A) 15 %; MCH 33.4 pg (25.0-35.0); MCHC 31.3 g/dL (31.0-37.0); Macrocytosis Marked; Mean Platelet Volume 8.6; Monocytes # (A) 0.1 k/uL (0-1.0); Monocytes % (A) 4 %; Neutrophils # (A) 2.7 k/uL (1.3-7.7); Neutrophils % (A) 78 %; Platelet Count 249 k/uL (150-450); RDW 16.8 % (11.5-15.5); WBC 3.4 k/uL (3.8-10.6)
[2020-02-17 04:23] LABS: MCV 106.7 fL (80.0-100.0)
[2020-02-17 04:45] LABS: African American GFR (CKD) >90 (>60 ml/min/1.73 sqM); Anion Gap 5 mmol/L; Blood Urea Nitrogen 16 mg/dL (7-17); Calcium 8.2 mg/dL (8.4-10.2); Carbon Dioxide 27 mmol/L (22-30); Chloride 108 mmol/L (98-107); Glucose 122 mg/dL (74-99); Non-African American GFR(CKD) >90 (>60 ml/min/1.73 sqM); Potassium 3.9 mmol/L (3.5-5.1); Sodium 140 mmol/L (137-145)
[2020-02-17] MEDS: PANTOPRAZOLE 40 MG/10 ML VIAL IVP SCH (08:17)
[2020-02-17] MEDS: PIPERACILLIN-TAZOBACTAM 3.375 GM in SODIUM CHLORIDE 0.9% 100 ML IVPB SCH ×2 (08:22→16:10)
[2020-02-17] MEDS: AMIODARONE 200 MG TAB PO SCH (08:25)
[2020-02-17] MEDS: HEPARIN SODIUM,PORCINE 5,000 UNIT/ML 1 ML VIAL SQ SCH ×2 (08:26→21:33)
[2020-02-17] MEDS: HALOPERIDOL 5 MG TAB PO SCH (08:26)
[2020-02-17] MEDS: VALPROIC ACID ORAL SOLN 250 MG/5 ML CUP PEG/G-TUBE SCH ×2 (08:28→21:33)
[2020-02-17] MEDS: BENZTROPINE MESYLATE 0.5 MG TAB PO SCH ×3 (08:29→21:33)
[2020-02-17] MEDS: SODIUM CHLORIDE 0.9% 1,000 ML IV SCH (11:18)
[2020-02-17] MEDS: levETIRAcetam IV 500 MG in SODIUM CHLORIDE 0.9% 100 ML IVPB SCH (12:46)
--- NOTE | 2020-02-17 13:17 | P.PN ---
Subjective Progress Note Date: 02/17/20 Principal diagnosis: Suspected aspiration 59-year-old white female patient of Dr. Valenzuela, with multiple medical problems including history of seizure disorder, cognitive deficit, dysphagia, hearing deficit, COPD/chronic bronchial asthma, history of chronic constipation, chronic venous insufficiency, who resides in the skilled nursing setting. Patient was recently hospitalized in [facility] with a bowel obstruction, and underwent colectomy and colostomy approximately 2 weeks ago. Patient apparently presented to [facility] for evaluation of fever, and diminished oral intake. Was a concern about aspiration pneumonia and patient was transferred to [facility] for further evaluation and treatment. Patient was started on Zosyn for empiric antibiotic coverage, her chest x-ray from 02/12/2020 shows no focal infiltrates. Outside CT chest film reviewed, showing no evidence of acute focal infiltrates. At the time of our evaluation patient is resting quietly in bed, room air pulse ox is 98%, afebrile, hemodynamically stable, she is non-verbal, but does not appear to be in any respiratory distress. She is nothing by mouth for possibility of aspiration, we will have speech therapy evaluate her swallowing ability. Surgical consult has been placed with Dr. Chow in view of recent surgery for bowel obstruction. KUB of the abdomen showed overall nonobstructive bowel gas pattern. On 02/14/2020 patient seen in follow-up on general medical floor. She is awake, she is unable to respond verbally or follow any command, she is noted to have increased involuntary movements and she was evaluated by neurology. She did have a low-grade fever this morning with a temp of 100.4F, but does not appear to be in any respiratory distress, room air pulse ox is 95%, lung sounds are positive for diminished breath sounds at the bases, with a few scattered rhonchi. Patient remains on Zosyn for us to believe aspiration pneumonia and she's been afebrile, blood cultures have been negative. Patient was unable to complete follow-up evaluation related to difficulty following commands, PEG tube placement was recommended the patient is scheduled to undergo PEG tube placement today by Dr. Chow On 02/15/2020 patient seen in follow-up on general medical floor, he status post PEG tube insertion, we anticipate starting tube feedings today, however patient has developed febrile episodes, with a T-max of 102.5F this morning, on follow- up chest x-ray was reviewed showing no acute suspicious pulmonary process. Sounds are clear, diminished at the bases, vitals are stable, she is on room air pulse ox of 94-96%, she has been nothing by mouth. Breathing seems to be nonlabored, no cough or congestion, patient remains on Zosyn for empiric antibiotic coverage. Will culture has shown no growth. It is labs have been reviewed showing white blood cell count of 4.0, hemoglobin of 10.2, sodium of 140, potassium is 3.0, chloride is 106, CO2 17, BUN of 9 creatinine 0.72. The patient is seen today 02/16/2020 in follow-up on the regular medical floor. She is currently resting in bed. She is status post PEG tube placement. Still spiking fevers 101 earlier this morning. She is maintaining good O2 saturations in the 90s on room air. She's been hemodynamically stable. Blood cultures continued to show no growth. White count 4.8. Hemoglobin 10.5. Sodium 140. Potassium 2.7. Chloride 106. Bicarb 25. Creatinine 0.68. Urinalysis negative. She is continued on bronchodilators, Zosyn. The patient is seen today 02/17/2020 in follow-up on the regular medical floor. She is awake. Resting in bed. A bit less tremorous today compared to yesterday. She is maintaining O2 saturations in the mid to upper 90s on room air. Current temp 99.7. Blood cultures revealed no growth. White count 2.4. Hemoglobin 11.4. Sodium 140. Potassium 3.9. Chloride 108. Bicarb 27. Creatinine 0.57. She is continued on Zosyn. CAT scan of the abdomen and pelvis revealed minimal atelectatic changes in lung bases. There is splenic mouth r otation. Normal-appearing gallbladder. Haustral thickening of the cecum. Surgical services are on the case. PEG tube is functioning. Exit site clean and dry. Ostomy functioning. Objective - Vital Signs Vital signs: Vital Signs Temp 99.7 F H 02/17/20 07:00 Pulse 69 02/17/20 07:00 Resp 20 02/17/20 08:00 BP 150/76 02/17/20 07:00 Pulse Ox 98 02/17/20 07:00 Intake & Output 0502/17/20 02/17/20 18:59 06:59 18:59 Intake Total 540 540 Output Total 950 Balance 540 -950 540 Weight 66.5 kg 59 kg Intake: Oral 0 Tube Feeding 540 540 Output: Urine 950 Other: Voiding Method Diaper Diaper Incontinent Incontinent - Exam GENERAL EXAM: Alert, 59-year-old female, resting comfortably in bed, on room air, patient is nonverbal, continues to have involuntary movements of upper extremities, and upper body, no apparent distress. HEAD: Normocephalic/atraumatic. EYES: Normal reaction of pupils, equal size. Conjunctiva pink, sclera white. NOSE: Clear with pink turbinates. THROAT: No erythema or exudates. NECK: No masses, no JVD, no thyroid enlargement, no adenopathy. CHEST: No chest wall deformity. Symmetrical expansion. LUNGS: Equal air entry with no crackles, wheeze, rhonchi or dullness. CVS: Regular rate and rhythm, normal S1 and S2, no gallops, no murmurs, no rubs ABDOMEN: Soft, nontender. No hepatosplenomegaly, normal bowel sounds, no guarding or rigidity. Patient has colostomy in place, PEG tube in place EXTREMITIES: No clubbing, no edema, no cyanosis, 2+ pulses and upper and lower extremities. MUSCULOSKELETAL: Muscle strength and tone normal. SPINE: No scoliosis or deformity SKIN: No rashes CENTRAL NERVOUS SYSTEM: Unable to assess, patient is nonverbal. Involuntary tremors - Labs CBC & Chem 7: 02/17/20 03:40 02/17/20 03:40 Labs: Abnormal Lab Results - Last 24 Hours (Table) 02/16/20 02/17/20 02/17/20 Range/Units 17:34 03:40 03:40 WBC 3.4 L (3.8-10.6) k/uL RBC 3.40 L (3.80-5.40) m/uL MCV 106.7 H (80.0-100.0) fL RDW 16.8 H (11.5-15.5) % Lymphocytes # 0.5 L (1.0-4.8) k/uL Macrocytosis Marked A Potassium 3.0 L (3.5-5.1) mmol/L Chloride 108 H 108 H (98-107) mmol/L Glucose 122 H (74-99) mg/dL Calcium 8.2 L (8.4-10.2) mg/dL Microbiology - Last 24 Hours (Table) 02/15/20 10:22 Blood Culture - Preliminary Blood No Growth after 48 hours 02/15/20 10:22 Blood Culture - Preliminary Blood No Growth after 48 hours 02/12/20 15:54 Blood Culture - Preliminary Blood No Growth after 96 hours Assessment and Plan Assessment: #1. Acute febrile illness rule out possibility of aspiration pneumonia, chest x-ray showed no focal infiltrates, outside CT chest shows no acute pulmonary process. COVID 19 ruled out. Urinalysis clean. Computed tomography scan of the abdomen and pelvis revealed splenic malrotation without evidence of ischemia, normal appearing gallbladder, haustral thickening of the cecum. No acute process. #2. Chronic dysphagia, rule out chronic aspiration. Status post PEG tube placement on 02/14/2020 #3. History of seizure disorder #4. Chronic cognitive deficit #5. Recent history of bowel obstruction status post colectomy and colostomy. KUB abdomen showing nonobstructive bowel pattern #6. History of sleep apnea #7. History of chronic bronchial asthma, unspecified #8. His trip chronic constipation #9. History of bipolar depression #10. Hyperlipidemia #11. Involuntary tremors Plan: The patient was seen and evaluated by Dr. Elder Palacio with mild fever Urinalysis without acute infection Chest x-ray revealed no aspiration No acute abnormalities and the CT of the abdomen and pelvis Continue Zosyn for now We'll continue to follow I, the cosigning physician, performed a history & physical examination of the patient. Lungs sounds are clear. Maintaining good O2 saturations in the 90s on room air. I discussed the assessment and plan of care with my nurse practitioner, Reyna Taylor. I attest to the above note as dictated by her.
[2020-02-17] MEDS: LACTATED RINGERS 1,000 ML IV SCH (16:13)
[2020-02-17] MEDS: ACETAMINOPHEN TAB 325 MG TAB PO PRN (16:14)
--- NOTE | 2020-02-17 18:01 | PN ---
PROGRESS NOTE DATE OF SERVICE: 02/17/2020 This 59-year-old woman was admitted with fever with possibly aspiration also had change in mental status. Patient had PEG tube placement also. The patient appears to be tolerating the PEG tube feeds at this time. Because of the fever, an abdominal pelvis CAT scan was done yesterday which showed splenic malrotation, normal appearing gallbladder and hostile thickening of the colon. The possibility of colitis typhlitis neoplasm to be considered. patient also has some abnormal movements, which is improving at this time. Patient has multiple medications patient also had severe hypokalemia which is being corrected at this time. Patient also has some abnormal movements, which is improving at this time. Patient is on multiple medications. Patient also had severe hypokalemia which is being corrected at this time. PAST MEDICAL HISTORY: Reviewed. REVIEW OF SYSTEMS: Review of systems could not be taken. CURRENT MEDICATIONS: Reviewed and include: 1. Tylenol p.r.n. 2. DuoNeb q.i.d. 3. Cordarone 200 mg. 4. Cogentin. 5. Vitamin D2. 6. Haldol. 7. Heparin. 8. Dilaudid. 9. Ativan. 10.P.r.n. medications. 11.Zosyn 3.375 IV q.8. 12.Valproic acid. PHYSICAL EXAM: Patient is conscious, confused. Pulse 69, blood pressure 150/76, respiration 20, temperature 99.7, pulse ox 98% on room air, minimal diffuse abnormal movement present. HEENT: Conjunctivae normal. NECK: No JVD. CARDIOVASCULAR: S1, S2 muffled. RESPIRATIONS: Breath sounds diminished in the bases. A few scattered rhonchi and crackles. ABDOMEN: Soft, status post PEG tube. LEGS are no edema. No swelling. CENTRAL NERVOUS SYSTEM: Diffusely weak. LABS: WBC 3.3, hemoglobin 11.4, MCV 106.7, platelets are 249. Sodium 140, potassium 3.9. ASSESSMENT: 1. Fever, possible aspiration pneumonia with possible sepsis, present on admission on broad-spectrum IV antibiotics. 2. Change in mental status with acute metabolic acidosis, with acute on chronic. 3. Dysphagia with aspiration pneumonia, status post PEG tube placement. 4. Rule out typhlitis or colitis with hostile thickening of the cecum, rule out neoplasm per CT scan. 5. Minimal mild leukopenia. 6. Anemia, macrocytic. 7. Severe hypokalemia. 8. Hyponatremia. 9. Hypoalbuminemia with mild protein calorie malnutrition. 10.History of recent laparotomy as well as a colostomy with bowel obstruction from elsewhere. 11.History of chronic obstructive pulmonary disease. 12.Hypertension. 13.Hyperlipidemia. 14.History of seizure disorder. 15.History of coarse tremors. 16.Sleep apnea. 17.History of syncope. 18.History of mental retardation. 19.History of pancytopenia. 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 21.History of pericardial cyst. 22.History of right-sided aortic arch. 23.History of bronchial asthma, chronic intermittent. 24.Chronic constipation. 25.History of left-sided salivary gland removal. 26.History of bipolar depression. 27.Hypokalemia. 28.FULL CODE. RECOMMENDATIONS AND DISCUSSION: Recommend to continue current management and apparently patient is from an AFC home. At this time I recommend PT/OT evaluation, possible ECF rehab at this time because of multiple complex medical issues, we will monitor lytes closely. Abnormal movements are better controlled with a combination of multiple medications. We will closely monitor with surgery. Abnormal findings on the CT scan has been noted. It is not very clear if this related to the recent surgery. We will try to obtain the records from the previous hospital and continue to monitor. Overall prognosis extremely guarded because of multiple complex medical issues. Minimal leukopenia is a concern. We will continue to monitor. Repeat labs are ordered. Prognosis guarded. See orders for details. MMODL / IJN: [id number] /
[2020-02-18] MEDS: levETIRAcetam IV 500 MG in SODIUM CHLORIDE 0.9% 100 ML IVPB SCH ×3 (00:22→14:00)
[2020-02-18] MEDS: PIPERACILLIN-TAZOBACTAM 3.375 GM in SODIUM CHLORIDE 0.9% 100 ML IVPB SCH ×3 (01:41→16:03)
[2020-02-18 06:57] LABS: Anisocytosis Slight; Basophils % (A) 1 %; Eosinophils % (A) 0 %; HCT 39.2 % (34.0-46.0); HGB 11.5 gm/dL (11.4-16.0); Hypochromasia Marked; Lymphocytes % (A) 19 %; MCH 31.7 pg (25.0-35.0); MCHC 29.3 g/dL (31.0-37.0); MCV 108.2 fL (80.0-100.0); Macrocytosis Marked; Mean Platelet Volume 9.1; Monocytes # (A) 0.3 k/uL (0-1.0); Monocytes % (A) 6 %; Neutrophils # (A) 3.8 k/uL (1.3-7.7); Neutrophils % (A) 71 %; Platelet Count 279 k/uL (150-450); RBC 3.62 m/uL (3.80-5.40); RDW 16.8 % (11.5-15.5); WBC 5.3 k/uL (3.8-10.6)
[2020-02-18 07:11] LABS: African American GFR (CKD) >90 (>60 ml/min/1.73 sqM); Anion Gap 6 mmol/L; Blood Urea Nitrogen 22 mg/dL (7-17); Calcium 8.7 mg/dL (8.4-10.2); Carbon Dioxide 27 mmol/L (22-30); Chloride 107 mmol/L (98-107); Glucose 99 mg/dL (74-99); Non-African American GFR(CKD) >90 (>60 ml/min/1.73 sqM); Potassium 4.7 mmol/L (3.5-5.1); Sodium 140 mmol/L (137-145)
[2020-02-18] MEDS: ACETAMINOPHEN TAB 325 MG TAB PO PRN ×2 (07:30→16:32)
[2020-02-18] MEDS: HALOPERIDOL 5 MG TAB PO SCH (07:40)
--- NOTE | 2020-02-18 07:59 | XR ---
EXAMINATION TYPE: XR chest 1V portable DATE OF EXAM: 02/18/2020 HISTORY: chf. REFERENCE: Previous study dated 02/15/2020. FINDINGS: The heart is mildly prominent. The lungs are clear. Pleural space are clear. IMPRESSION: MILD CARDIOMEGALY.
[2020-02-18] MEDS: AMIODARONE 200 MG TAB PO SCH (08:13)
[2020-02-18] MEDS: BENZTROPINE MESYLATE 0.5 MG TAB PO SCH ×3 (08:14→20:50)
[2020-02-18] MEDS: HEPARIN SODIUM,PORCINE 5,000 UNIT/ML 1 ML VIAL SQ SCH ×2 (08:14→20:50)
[2020-02-18] MEDS: VALPROIC ACID ORAL SOLN 250 MG/5 ML CUP PEG/G-TUBE SCH ×2 (08:15→20:50)
--- NOTE | 2020-02-18 11:22 | P.PN ---
Subjective Progress Note Date: 02/18/20 Principal diagnosis: Suspected aspiration 59-year-old white female patient of Dr. Valenzuela, with multiple medical problems including history of seizure disorder, cognitive deficit, dysphagia, hearing deficit, COPD/chronic bronchial asthma, history of chronic constipation, chronic venous insufficiency, who resides in the alf setting. Patient was recently hospitalized in [facility] with a bowel obstruction, and underwent colectomy and colostomy approximately 2 weeks ago. Patient apparently presented to [facility] for evaluation of fever, and diminished oral intake. Was a concern about aspiration pneumonia and patient was transferred to [facility] for further evaluation and treatment. Patient was started on Zosyn for empiric antibiotic coverage, her chest x-ray from 02/12/2020 shows no focal infiltrates. Outside CT chest film reviewed, showing no evidence of acute focal infiltrates. At the time of our evaluation patient is resting quietly in bed, room air pulse ox is 98%, afebrile, hemodynamically stable, she is non-verbal, but does not appear to be in any respiratory distress. She is nothing by mouth for possibility of aspiration, we will have speech therapy evaluate her swallowing ability. Surgical consult has been placed with Dr. Chow in view of recent surgery for bowel obstruction. KUB of the abdomen showed overall nonobstructive bowel gas pattern. On 02/14/2020 patient seen in follow-up on general medical floor. She is awake, she is unable to respond verbally or follow any command, she is noted to have increased involuntary movements and she was evaluated by neurology. She did have a low-grade fever this morning with a temp of 100.4F, but does not appear to be in any respiratory distress, room air pulse ox is 95%, lung sounds are positive for diminished breath sounds at the bases, with a few scattered rhonchi. Patient remains on Zosyn for us to believe aspiration pneumonia and she's been afebrile, blood cultures have been negative. Patient was unable to complete follow-up evaluation related to difficulty following commands, PEG tube placement was recommended the patient is scheduled to undergo PEG tube placement today by Dr. Chow On 02/15/2020 patient seen in follow-up on general medical floor, he status post PEG tube insertion, we anticipate starting tube feedings today, however patient has developed febrile episodes, with a T-max of 102.5F this morning, on follow- up chest x-ray was reviewed showing no acute suspicious pulmonary process. Sounds are clear, diminished at the bases, vitals are stable, she is on room air pulse ox of 94-96%, she has been nothing by mouth. Breathing seems to be nonlabored, no cough or congestion, patient remains on Zosyn for empiric antibiotic coverage. Will culture has shown no growth. It is labs have been reviewed showing white blood cell count of 4.0, hemoglobin of 10.2, sodium of 140, potassium is 3.0, chloride is 106, CO2 17, BUN of 9 creatinine 0.72. The patient is seen today 02/16/2020 in follow-up on the regular medical floor. She is currently resting in bed. She is status post PEG tube placement. Still spiking fevers 101 earlier this morning. She is maintaining good O2 saturations in the 90s on room air. She's been hemodynamically stable. Blood cultures continued to show no growth. White count 4.8. Hemoglobin 10.5. Sodium 140. Potassium 2.7. Chloride 106. Bicarb 25. Creatinine 0.68. Urinalysis negative. She is continued on bronchodilators, Zosyn. The patient is seen today 02/17/2020 in follow-up on the regular medical floor. She is awake. Resting in bed. A bit less tremorous today compared to yesterday. She is maintaining O2 saturations in the mid to upper 90s on room air. Current temp 99.7. Blood cultures revealed no growth. White count 2.4. Hemoglobin 11.4. Sodium 140. Potassium 3.9. Chloride 108. Bicarb 27. Creatinine 0.57. She is continued on Zosyn. CAT scan of the abdomen and pelvis revealed minimal atelectatic changes in lung bases. There is splenic mouth r otation. Normal-appearing gallbladder. Haustral thickening of the cecum. Surgical services are on the case. PEG tube is functioning. Exit site clean and dry. Ostomy functioning. The patient is seen today 02/18/2020 in follow-up on the regular medical floor. She is currently awake. Tremorous today. Continues despite temperatures up to 102 this morning. No cough or congestion. Maintaining O2 saturation the mid 90s on room air. Chest x-ray shows no acute pulmonary process. Repeat blood cultures revealed no growth. No open sores noted. White count 5.3. Hemoglobin 11.5. Sodium 140. Potassium 4.7. Creatinine 0.62. Objective - Vital Signs Vital signs: Vital Signs Temp 100.7 F H 02/18/20 08:16 Pulse 93 02/18/20 07:00 Resp 20 02/18/20 07:00 BP 137/72 02/18/20 07:00 Pulse Ox 96 02/18/20 07:00 Intake & Output 02/17/20 02/18/20 02/18/20 18:59 06:59 18:59 Intake Total 1800 Output Total 250 325 Balance 1550 -325 Weight 60 kg Intake: Tube Feeding 1680 Other 120 Output: Urine 250 325 Other: Voiding Method Diaper Diaper Incontinent Incontinent - Exam GENERAL EXAM: Alert, 59-year-old female, resting comfortably in bed, on room air, patient is nonverbal, continues to have involuntary movements of upper extremities, and upper body, no apparent distress. HEAD: Normocephalic/atraumatic. EYES: Normal reaction of pupils, equal size. Conjunctiva pink, sclera white. NOSE: Clear with pink turbinates. THROAT: No erythema or exudates. NECK: No masses, no JVD, no thyroid enlargement, no adenopathy. CHEST: No chest wall deformity. Symmetrical expansion. LUNGS: Equal air entry with no crackles, wheeze, rhonchi or dullness. CVS: Regular rate and rhythm, normal S1 and S2, no gallops, no murmurs, no rubs ABDOMEN: Soft, nontender. No hepatosplenomegaly, normal bowel sounds, no guarding or rigidity. Patient has colostomy in place, PEG tube in place EXTREMITIES: No clubbing, no edema, no cyanosis, 2+ pulses and upper and lower extremities. MUSCULOSKELETAL: Muscle strength and tone normal. SPINE: No scoliosis or deformity SKIN: No rashes CENTRAL NERVOUS SYSTEM: Unable to assess, patient is nonverbal. Involuntary tremors - Labs CBC & Chem 7: 02/18/20 06:07 02/18/20 06:07 Labs: Abnormal Lab Results - Last 24 Hours (Table) 02/18/20 02/18/20 Range/Units 06:07 06:07 RBC 3.62 L (3.80-5.40) m/uL MCV 108.2 H (80.0-100.0) fL MCHC 29.3 L (31.0-37.0) g/dL RDW 16.8 H (11.5-15.5) % Macrocytosis Marked A BUN 22 H (7-17) mg/dL Microbiology - Last 24 Hours (Table) 02/12/20 15:54 Blood Culture - Preliminary Blood No Growth after 120 hours 02/15/20 10:22 Blood Culture - Preliminary Blood No Growth after 48 hours 02/15/20 10:22 Blood Culture - Preliminary Blood No Growth after 48 hours Assessment and Plan Assessment: #1. Acute febrile illness, chest x-ray showed no focal infiltrates, outside CT chest shows no acute pulmonary process. COVID 19 ruled out. Urinalysis clean. 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 Acute cholecystitis not ruled out #2. Chronic dysphagia, rule out chronic aspiration. Status post PEG tube placement on 02/14/2020 #3. History of seizure disorder #4. Chronic cognitive deficit #5. Recent history of bowel obstruction status post colectomy and colostomy. KUB abdomen showing nonobstructive bowel pattern #6. History of sleep apnea #7. History of chronic bronchial asthma, unspecified #8. His trip chronic constipation #9. History of bipolar depression #10. Hyperlipidemia #11. Involuntary tremors Plan: The patient was seen and evaluated by Dr. Friedman Continues with fever Chest x-ray shows no acute process Continue Zosyn for now We'll obtain a HIDA scan to rule out any acute cholecystitis We'll continue to follow I, the cosigning physician, performed a history & physical examination of the patient. Lungs sounds are clear. Maintaining good O2 saturations in the 90s on room air. I discussed the assessment and plan of care with my nurse practitioner, Reyna Taylor. I attest to the above note as dictated by her.
[2020-02-18] MEDS: SODIUM CHLORIDE 0.9% 1,000 ML IV SCH (12:32)
[2020-02-18] MEDS: LORazepam 1 MG TAB PO PRN (14:07)
[2020-02-18] MEDS ORDERED: VANCOMYCIN IV PER PHARMACY 1 EACH MISC MISCELLANE PRN (15:26)
[2020-02-18] MEDS ORDERED: VANCOMYCIN 1,250 MG in SODIUM CHLORIDE 0.9% 250 ML IVPB ONE (16:00)
[2020-02-18] MEDS: LACTATED RINGERS 1,000 ML IV SCH (16:46)
--- NOTE | 2020-02-18 20:58 | PN ---
PROGRESS NOTE DATE OF SERVICE: 02/18/2020 This 59-year-old woman with a past medical history of multiple medical problems was admitted with fever, possible aspiration pneumonia. The patient is on broad-spectrum IV antibiotics. The patient also had dysphagia and PEG tube inserted. The patient also had recent surgery from elsewhere for possibly bowel obstruction. The details are not available at this time. The patient was sent to rehab from there. Otherwise, the patient is running fever today, multiple consultants are following the patient closely. Chest x-ray was reviewed. The patient had still significant stool in the intestine. The abdominal pelvis CAT scan was done about a day ago showed splenic malnutrition and normal-appearing gallbladder and some haustral thickening of the cecum also. PAST MEDICAL HISTORY: Reviewed. REVIEW OF SYSTEMS: Review of systems could not be taken because the patient's change in mental status. CURRENT MEDICATIONS: Reviewed and include: 1. Tylenol p.r.n. 2. DuoNeb q.i.d. and p.r.n. 3. Cordarone 200 mg with breakfast. 4. Cogentin 0.5 mg daily. 5. Vitamin D2 50,000. 6. Haldol 0.5 mg daily. 7. Heparin 5000 subcu b.i.d. 8. Dilaudid. 9. Lactated Ringer's. 10.Keppra. 11.Ativan 1 mg. 12.Replacement protocol. 13.Narcan. 14.Protonix. 15.Zosyn 3.375 IV q.8. 16.Depakote. PHYSICAL EXAM: Patient is conscious but nonverbal. Pulse is 93, blood pressure 137/72, respiration 20, temperature 102 degrees, pulse ox 96% on room air. HEENT is conjunctivae normal. NECK: No jugular venous distention. CARDIOVASCULAR: S1, S2 muffled. RESPIRATION: Breath sounds diminished in the bases. A few scattered rhonchi and crackles. ABDOMEN: Soft. PEG tube in situ. LEGS are no edema. No swelling. LABS: WBC 5.2, hemoglobin 11.5, sodium 140, potassium 4.7. Other labs are noted. ASSESSMENT: 1. Fever, possible aspiration pneumonia with possible sepsis, present on admission on broad-spectrum IV antibiotics. 2. Continued fever. 3. Change in mental status, acute metabolic encephalopathy, acute on chronic. 4. Dysphagia with aspiration pneumonia, status post PEG tube placement. 5. Rule out typhlitis or colitis with haustral thickening in the cecum, rule out neoplasm per CT scan. 6. Minimal mild leukopenia. 7. Anemia macrocytic. 8. Severe hypokalemia. 9. Hyponatremia. 10.Hypoalbuminemia with mild protein calorie malnutrition. 11.History of recent laparotomy as well as colostomy with bowel obstruction elsewhere. 12.History of chronic obstructive pulmonary disease. 13.Hypertension. 14.Hyperlipidemia. 15.History of seizure disorder. 16.History of coarse tremors. 17.Sleep apnea. 18.History of syncope. 19.History of mental retardation. 20.History of pancytopenia. 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 22.History of pericardial cyst. 23.History of right-sided aortic arch. 24.History of bronchial asthma, chronic, intermittent. 25.Chronic constipation. 26.History of left-sided salivary gland removal. 27.History of bipolar depression. 28.Hypokalemia. 29.FULL CODE. RECOMMENDATIONS AND DISCUSSION: I recommend to continue current medications, monitoring, management and symptomatic treatment. Otherwise, at this time, we will recommend continue the antibiotics. Infectious disease evaluation. The exact etiology of fever is unknown at this time. The coronavirus test was negative previously. We will continue to monitor. Guarded prognosis because of multiple complex medical issues. Further recommendations to follow. MMODL / IJN: [id number] /
--- NOTE | 2020-02-18 21:53 | P.CONS ---
History of Present Illness - Reason for Consult Consult date: 02/18/20 Fever Requesting physician: Trena Cruz - Chief Complaint Fever x few days - History of Present Illness patient is a 59-year-old female with a past medical history significant for cognitive deficit COPD problem on a bronchial asthma apparently was recently admitted at [facility] with bowel obstruction patient is status post colectomy and colostomy about 2 weeks prior to admission at this facility patient presented to [facility] with a fever and decreased oral intake with concern for possible aspiration pneumonia the patient has been transferred to [facility] on 02/12/2020 for management of 4 PM possible aspiration pneumonia patient did have a normal chest x-ray and apparently she did have a CT had outside facility was negative for any pneumonia since the patient has been here in the hospital patient has been spiking a fever on a daily basis of fever up to 102 F daily , patient did have a CT of abdominal pelvis completed which did show slight hyperemia of the gallbladder and a question of possible cecal inflammation patient has been on Zosyn since 11 February however with persistent fever infectious was consulted today for further management, patient herself is unable to provide any history so most information has been obtained from review the chart patient did have multiple x-rays those has been negative for acute pulmonary infiltrate patient also have a normal white count since admission urine has been negative casey PCR was negative. Review of Systems Positive point has been mentioned in HPI complete review could not be obtained because of underlying mental status 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; pharyngeal dysphagia; percardial cyst; right side aortic arch; sleep apnea; bronchial asthma; venous insufficincy; chronic constipation; hammer toe 2 - 5 History of Any Multi-Drug Resistant Organisms: None Reported Additional Past Surgical History / Comment(s): colectomy with ostomy placement; salvary gland left side removed Additional Past Anesthesia/Blood Transfusion Reaction / Comm: unknown, pt nonverbal developmentally delayed. Past Psychological History: Bipolar, Depression Smoking Status: Never smoker Past Alcohol Use History: None Reported Past Drug Use History: None Reported - Past Family History Mother Family Medical History: Unable to Obtain Medications and Allergies Home Medications Medication Instructions Recorded Confirmed Type Ipratropium-Albuterol Nebulize 3 ml INHALATION RT-TID PRN 09/15/18 02/12/20 History [Duoneb 0.5 mg-3 mg/3 ml Soln] Amiodarone [Cordarone] 200 mg PO W/BRKFST 02/12/20 02/12/20 History Benztropine Mesylate 0.5 mg PO TID@0700,1599,199902/12/20 02/12/20 History Divalproex Sprinkle [Depakote 250 mg PO TID@0700,1600,199902/12/20 02/12/20 History Sprinkle] Ergocalciferol (Vitamin D2) 50,000 unit PO Q7D 02/12/20 02/12/20 History [Drisdol] Haloperidol 5 mg PO DAILY@0700 02/12/20 02/12/20 History LORazepam [Ativan] 1 mg PO TID@0700,1599,1999 PRN 02/12/20 02/12/20 History Allergies Allergy/AdvReac Type Severity Reaction Status Date / Time lithium Allergy Unknown Verified 02/12/20 17:14 topiramate [From Topamax] Allergy Unknown Verified 02/12/20 17:14 Physical Exam Vitals: Vital Signs Temp Pulse Resp BP BP Pulse Ox 02/18/20 12:32 98.6 F 02/18/20 08:16 100.7 F H 02/18/20 08:10 20 02/18/20 07:00 102 F H 93 20 137/72 96 02/18/20 03:34 14 02/18/20 00:30 14 02/18/20 00:25 97.7 F 63 13 107/56 96 02/17/20 19:35 13 02/17/20 19:21 98.9 F 63 13 116/67 98 02/17/20 16:28 62 17 Intake and Output 02/18/20 02/18/20 02/18/20 06:59 14:59 22:59 Intake Total 780 Output Total 325 Balance -325 780 Intake: Oral 0 Tube Feeding 780 Output: Urine 325 Other: Voiding Method Diaper Diaper Incontinent Incontinent Weight 60 kg GENERAL DESCRIPTION: Middle-aged female lying in bed, no distress. No tachypnea or accessory muscle of respiration use. HEENT: Shows Pallor , no scleral icterus. Oral mucous membrane is dry. NECK: Trachea central, no thyromegaly. LUNGS: Unlabored breathing. Decreased breath at the base . No wheeze or crackle. HEART: S1, S2, regular rate and rhythm. ABDOMEN: Soft, no tenderness , guarding or rigidity EXTREMITIES: No edema of feet. SKIN: No rash, no masses palpable. NEUROLOGICAL: The patient is awake,orientation could not be done because of her mental illness. Results CBC & Chem 7: 02/18/20 06:07 02/18/20 06:07 Labs: Abnormal Lab Results - Last 24 Hours (Table) 02/18/20 02/18/20 Range/Units 06:07 06:07 RBC 3.62 L (3.80-5.40) m/uL MCV 108.2 H (80.0-100.0) fL MCHC 29.3 L (31.0-37.0) g/dL RDW 16.8 H (11.5-15.5) % Macrocytosis Marked A BUN 22 H (7-17) mg/dL Microbiology - Last 24 Hours (Table) 02/15/20 10:22 Blood Culture - Preliminary Blood No Growth after 72 hours 02/15/20 10:22 Blood Culture - Preliminary Blood No Growth after 72 hours 02/12/20 15:54 Blood Culture - Preliminary Blood No Growth after 120 hours Assessment and Plan Assessment: patient with fever on a daily basis and this patient has been admitted to hospital with initial concern for possible aspiration pneumonia however chest x- ray has been negative and the patient is currently breathing comfortably on room air patient did have a negative UA casey PCR was negative CT abdominal pelvis with some hyperemia of the gallbladder and possible cecal inflammation which should be covered with Zosyn however the patient did not have a fever with a question of possible gram-positive infection versus noninfectious etiology of her fever. (1) Fever Current Visit: Yes Status: Acute Code(s): R50.9 - FEVER, UNSPECIFIED SNOMED Code(s): 556678152 Plan: 1 blood cultures will be repeated and also check-CRP and procalcitonin level 2-check lower extremity Doppler 3-continue Zosyn however add vancomycin pharmacy to dose 4-await HIDA scan that has been ordered by pulmonary team We will follow on clinical condition and cultures to further adjust medication if needed Thank you for this consultation we will follow the patient along with you Time with Patient: Greater than 30
[2020-02-19] MEDS: levETIRAcetam IV 500 MG in SODIUM CHLORIDE 0.9% 100 ML IVPB SCH ×2 (00:32→14:40)
[2020-02-19] MEDS: PIPERACILLIN-TAZOBACTAM 3.375 GM in SODIUM CHLORIDE 0.9% 100 ML IVPB SCH ×3 (00:56→16:22)
[2020-02-19] MEDS: VANCOMYCIN 1,000 MG in SODIUM CHLORIDE 0.9% 250 ML IVPB SCH ×2 (06:27→18:58)
--- NOTE | 2020-02-19 08:12 | US ---
EXAMINATION TYPE: US venous doppler duplex LE BI DATE OF EXAM: 02/19/2020 7:57 AM COMPARISON: NONE CLINICAL HISTORY: Fever/leg swelling r/o dvt. Fever, leg edema SIDE PERFORMED: bilateral TECHNIQUE: The lower extremity deep venous system is examined utilizing real time linear array sonog gabby with graded compression, doppler sonography and color-flow sonography. VESSELS IMAGED: External Iliac Vein (EIV) Common Femoral Vein Deep Femoral Vein Greater Saphenous Vein * Femoral Vein Popliteal Vein Small Saphenous Vein * Proximal Calf Veins (* superficial vessels) Technical limitations, patient uncooperative, constantly shaking and moving legs and pulling on te chnologists arm Right Leg: No evidence of DVT as visualized Left Leg: No evidence of DVT as visualized IMPRESSION: Exam is technically limited as detailed above. No gross evidence of deep venous thrombos is in the visualized bilateral lower extremities.
[2020-02-19] MEDS: LORazepam 1 MG TAB PO PRN ×3 (08:40→20:35)
[2020-02-19] MEDS: PANTOPRAZOLE 40 MG/10 ML VIAL IVP SCH (08:41)
[2020-02-19] MEDS: HEPARIN SODIUM,PORCINE 5,000 UNIT/ML 1 ML VIAL SQ SCH ×2 (08:41→20:35)
[2020-02-19 09:18] VITALS: BMI 22.7
[2020-02-19] MEDS: AMIODARONE 200 MG TAB PO SCH (10:28)
[2020-02-19] MEDS: HALOPERIDOL 5 MG TAB PO SCH (10:28)
[2020-02-19] MEDS: VALPROIC ACID ORAL SOLN 250 MG/5 ML CUP PEG/G-TUBE SCH ×2 (10:29→20:34)
[2020-02-19] MEDS: BENZTROPINE MESYLATE 0.5 MG TAB PO SCH ×3 (10:29→20:34)
--- NOTE | 2020-02-19 12:40 | P.PN ---
Subjective Progress Note Date: 02/19/20 Principal diagnosis: Suspected aspiration 59-year-old white female patient of Dr. Valenzuela, with multiple medical problems including history of seizure disorder, cognitive deficit, dysphagia, hearing deficit, COPD/chronic bronchial asthma, history of chronic constipation, chronic venous insufficiency, who resides in the [facility] setting. Patient was recently hospitalized in [facility] with a bowel obstruction, and underwent colectomy and colostomy approximately 2 weeks ago. Patient apparently presented to [facility] for evaluation of fever, and diminished oral intake. Was a concern about aspiration pneumonia and patient was transferred to [facility] for further evaluation and treatment. Patient was started on Zosyn for empiric antibiotic coverage, her chest x-ray from 02/12/2020 shows no focal infiltrates. Outside CT chest film reviewed, showing no evidence of acute focal infiltrates. At the time of our evaluation patient is resting quietly in bed, room air pulse ox is 98%, afebrile, hemodynamically stable, she is non-verbal, but does not appear to be in any respiratory distress. She is nothing by mouth for possibility of aspiration, we will have speech therapy evaluate her swallowing ability. Surgical consult has been placed with Dr. Chow in view of recent surgery for bowel obstruction. KUB of the abdomen showed overall nonobstructive bowel gas pattern. On 02/14/2020 patient seen in follow-up on general medical floor. She is awake, she is unable to respond verbally or follow any command, she is noted to have increased involuntary movements and she was evaluated by neurology. She did have a low-grade fever this morning with a temp of 100.4F, but does not appear to be in any respiratory distress, room air pulse ox is 95%, lung sounds are positive for diminished breath sounds at the bases, with a few scattered rhonchi. Patient remains on Zosyn for us to believe aspiration pneumonia and she's been afebrile, blood cultures have been negative. Patient was unable to complete follow-up evaluation related to difficulty following commands, PEG tube placement was recommended the patient is scheduled to undergo PEG tube placement today by Dr. Chow On 02/15/2020 patient seen in follow-up on general medical floor, he status post PEG tube insertion, we anticipate starting tube feedings today, however patient has developed febrile episodes, with a T-max of 102.5F this morning, on follow- up chest x-ray was reviewed showing no acute suspicious pulmonary process. Sounds are clear, diminished at the bases, vitals are stable, she is on room air pulse ox of 94-96%, she has been nothing by mouth. Breathing seems to be nonlabored, no cough or congestion, patient remains on Zosyn for empiric antibiotic coverage. Will culture has shown no growth. It is labs have been reviewed showing white blood cell count of 4.0, hemoglobin of 10.2, sodium of 140, potassium is 3.0, chloride is 106, CO2 17, BUN of 9 creatinine 0.72. The patient is seen today 02/16/2020 in follow-up on the regular medical floor. She is currently resting in bed. She is status post PEG tube placement. Still spiking fevers 101 earlier this morning. She is maintaining good O2 saturations in the 90s on room air. She's been hemodynamically stable. Blood cultures continued to show no growth. White count 4.8. Hemoglobin 10.5. Sodium 140. Potassium 2.7. Chloride 106. Bicarb 25. Creatinine 0.68. Urinalysis negative. She is continued on bronchodilators, Zosyn. The patient is seen today 02/17/2020 in follow-up on the regular medical floor. She is awake. Resting in bed. A bit less tremorous today compared to yesterday. She is maintaining O2 saturations in the mid to upper 90s on room air. Current temp 99.7. Blood cultures revealed no growth. White count 2.4. Hemoglobin 11.4. Sodium 140. Potassium 3.9. Chloride 108. Bicarb 27. Creatinine 0.57. She is continued on Zosyn. CAT scan of the abdomen and pelvis revealed minimal atelectatic changes in lung bases. There is splenic mouth r otation. Normal-appearing gallbladder. Haustral thickening of the cecum. Surgical services are on the case. PEG tube is functioning. Exit site clean and dry. Ostomy functioning. The patient is seen today 02/18/2020 in follow-up on the regular medical floor. She is currently awake. Tremorous today. Continues despite temperatures up to 102 this morning. No cough or congestion. Maintaining O2 saturation the mid 90s on room air. Chest x-ray shows no acute pulmonary process. Repeat blood cultures revealed no growth. No open sores noted. White count 5.3. Hemoglobin 11.5. Sodium 140. Potassium 4.7. Creatinine 0.62. The patient is seen today 02/19/2020 in follow-up on the regular medical floor. She is currently resting in bed. Awake and alert. Continues with tremors. She is maintaining good O2 saturations in the mid 90s on room air. She's currently afebrile. Afebrile since yesterday morning at 100.7. Follow-up blood cultures revealed no growth. Pro-calcitonin 0.06. Infectious diseases on the case. Vancomycin has been added. Continued Zosyn. Objective - Vital Signs Vital signs: Vital Signs Temp 99.1 F 02/19/20 07:00 Pulse 69 02/19/20 08:00 Resp 18 02/19/20 08:00 BP 128/61 02/19/20 07:00 Pulse Ox 96 02/19/20 07:00 Intake & Output 02/18/20 02/19/20 02/19/20 18:59 06:59 18:59 Intake Total 1170 Output Total 300 600 100 Balance 870 -600 -100 Weight 62 kg 62 kg Intake: Oral 0 Tube Feeding 1170 Output: Urine 300 600 100 Other: Voiding Method Diaper Diaper Diaper Incontinent Incontinent Incontinent # Voids 1 - Exam GENERAL EXAM: Alert, 59-year-old female, resting comfortably in bed, on room air, patient is nonverbal, continues to have involuntary movements of upper extr emities, and upper body, no apparent distress. HEAD: Normocephalic/atraumatic. EYES: Normal reaction of pupils, equal size. Conjunctiva pink, sclera white. NOSE: Clear with pink turbinates. THROAT: No erythema or exudates. NECK: No masses, no JVD, no thyroid enlargement, no adenopathy. CHEST: No chest wall deformity. Symmetrical expansion. LUNGS: Equal air entry with no crackles, wheeze, rhonchi or dullness. CVS: Regular rate and rhythm, normal S1 and S2, no gallops, no murmurs, no rubs ABDOMEN: Soft, nontender. No hepatosplenomegaly, normal bowel sounds, no guarding or rigidity. Patient has colostomy in place, PEG tube in place EXTREMITIES: No clubbing, no edema, no cyanosis, 2+ pulses and upper and lower extremities. MUSCULOSKELETAL: Muscle strength and tone normal. SPINE: No scoliosis or deformity SKIN: No rashes CENTRAL NERVOUS SYSTEM: Unable to assess, patient is nonverbal. Involuntary tremors - Labs CBC & Chem 7: 02/18/20 06:07 02/18/20 06:07 Labs: Abnormal Lab Results - Last 24 Hours (Table) 02/18/20 Range/Units 15:45 C-Reactive Protein 10.6 H (<10.0) mg/L Microbiology - Last 24 Hours (Table) 02/12/20 15:54 Blood Culture - Final Blood No Growth after 144 hours 02/15/20 10:22 Blood Culture - Preliminary Blood No Growth after 72 hours 02/15/20 10:22 Blood Culture - Preliminary Blood No Growth after 72 hours Assessment and Plan Assessment: #1. Acute febrile illness, chest x-ray showed no focal infiltrates, outside CT chest shows no acute pulmonary process. COVID 19 ruled out. Urinalysis clean. 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 Acute cholecystitis not ruled out. HIDA scan pending. ID is on the case. Vancomycin added. Continued Zosyn. Pro-calcitonin 0.06. #2. Chronic dysphagia, rule out chronic aspiration. Status post PEG tube placement on 02/14/2020 #3. History of seizure disorder #4. Chronic cognitive deficit #5. Recent history of bowel obstruction status post colectomy and colostomy. KUB abdomen showing nonobstructive bowel pattern #6. History of sleep apnea #7. History of chronic bronchial asthma, unspecified #8. His trip chronic constipation #9. History of bipolar depression #10. Hyperlipidemia #11. Involuntary tremors Plan: The patient was seen and evaluated by Dr. Adame Last fever 24 hours ago ID is on the case. Vancomycin added. Continued Zosyn. HIDA scan pending. Procalcitonin 0.06. We'll continue to follow I, the cosigning physician, performed a history & physical examination of the patient. Lungs sounds are clear. Maintaining good O2 saturations in the 90s on room air. I discussed the assessment and plan of care with my nurse practitioner, Reyna Taylor. I attest to the above note as dictated by her.
--- NOTE | 2020-02-19 14:32 | NM ---
EXAMINATION TYPE: NM hepatobiliary w CCK DATE OF EXAM: 02/19/2020 COMPARISON: NONE HISTORY: Pain TECHNIQUE: After the intravenous administration of 4.3 mCi Tc 99m Mebrofenin hepatobiliary scintigrap hy is performed. Immediate images post injection. FINDINGS: There is satisfactory initial accumulation of tracer by the liver. The gallbladder is visualized wit hin 60 minutes. The small bowel activity is noted within 30 minutes. At one hour CCK was administer ed, patient was injected with 1.3 mcg of Kinevac, and gallbladder ejection fraction is calculated at 82 %, in the normal range. Therefore there is no scintigraphic evidence of cystic or common bile nicholas t obstruction to suggest acute cholecystitis or gallbladder dyskinesia. IMPRESSION: Exam is within normal limits.
--- NOTE | 2020-02-19 16:11 | PN ---
PROGRESS NOTE DATE OF SERVICE: 02/19/2020 This is a 59-year-old woman who was admitted with fever and possible aspiration pneumonia, also had a PEG tube placement. Patient is being closely monitored. Patient had abnormal movements, which is improving at this time. The patient also had venous Doppler. Patient also had hepatobiliary scan showed no acute abnormality. No chest pain, no palpitation. PHYSICAL EXAMINATION: Patient is conscious, nonverbal, confused. Pulse 69, blood pressure 120/61, respiration 18, temperature 99.1, pulse ox 98% on room air. HEENT: Conjunctivae normal. NECK: No jugular venous distension. CARDIOVASCULAR: S1, S2, muffled. RESPIRATION: Breath sounds diminished at the bases, a few rhonchi, no crackles. ABDOMEN: Soft, status post PEG tube placement. LEGS: No edema, no swelling. NERVOUS SYSTEM: No focal deficits. LABS: WBC is 5, hemoglobin is 11.5, sodium 140, potassium 4.7, CO2 is 10.6. ASSESSMENT: 1. Fever, possible aspiration pneumonia with possible sepsis present on admission, on broad-spectrum IV antibiotics. 2. Continued fever. 3. Change in mental status, acute metabolic on chronic. 4. Dysphagia with aspiration pneumonia, status post PEG tube placement. 5. Rule out typhlitis or colitis with hostile thickening in the cecum, rule out neoplasm per CT scan. 6. Minimal mild leukopenia. 7. Anemia macrocytic. 8. Severe hypokalemia. 9. Hyponatremia. 10.Hypoalbuminemia with mild protein calorie malnutrition. 11.History of recent laparotomy as well as colostomy with bowel obstruction elsewhere. 12.History of chronic obstructive pulmonary disease. 13.History of hypertension, hyperlipidemia, seizure disorder, history of coarse tremors, history of sleep apnea. 14.History of syncope. 15.History of mental retardation. 16.History of pancytopenia. 17.History of sensorineural hearing defect of the left ear. 18.History of pericardial cyst. 19.History of right-sided aortic arch. 20.History of bronchial asthma, chronic constipation. 21.History of left-sided liver gland removal. 22.History of bipolar depression. 23.Hypokalemia. 24.FULL CODE. RECOMMENDATION: Recommend to continue current management and symptomatic treatment. Continue the PEG tube feeds. Head of the bed elevated to 45 degrees. Repeat labs, PT, OT evaluation, possible ECF rehab. Guarded prognosis. MMODL / IJN: [id number] /
--- NOTE | 2020-02-19 17:11 | P.PN ---
Subjective Progress Note Date: 02/19/20 Patient was seen in neurologic consultation by Dr. Rubio on 02/14/2020. Patient was today seen for a follow-up. Patient is laying comfortably in the bed. She continues to have at least moderate to severe tremors at rest of her hands and chin. Patient mumbles, does not offer any complaints. Objective - Vital Signs Vital signs: Vital Signs Temp 98.5 F 02/19/20 14:50 Pulse 79 02/19/20 15:35 Resp 18 02/19/20 15:35 BP 123/70 02/19/20 14:50 Pulse Ox 96 02/19/20 14:50 Intake & Output 02/18/20 02/19/20 02/19/20 18:59 06:59 18:59 Intake Total 1170 Output Total 300 600 200 Balance 870 -600 -200 Weight 62 kg 62 kg Intake: Oral 0 Tube Feeding 1170 Output: Urine 300 600 200 Other: Voiding Method Diaper Diaper Diaper Incontinent Incontinent Incontinent # Voids 1 - Exam Patient has at least moderate to severe tremors at rest of both hands as well as chin. Tone is markedly increased in both arms and legs. Patient appears bradykinetic. Decrease frequency of blinking. - Labs CBC & Chem 7: 02/18/20 06:07 02/18/20 06:07 Labs: Microbiology - Last 24 Hours (Table) 02/15/20 10:22 Blood Culture - Preliminary Blood No Growth after 96 hours 02/15/20 10:22 Blood Culture - Preliminary Blood No Growth after 96 hours 02/12/20 15:54 Blood Culture - Final Blood No Growth after 144 hours Assessment and Plan Assessment: * Tremors at rest involving bilateral arms, chin, likely medication induced. The tremors are probably parkinsonian related to use of Haldol with additional component of Depakote induced tremors. Patient is on Cogentin 0.5 mg 3 times a day. * Aspiration pneumonia, also probably enhancing these tremors. * History of schizophrenia. * Status post PEG placement for 02/14/2020 Plan: * Will review EEG, as status was reported on the EEG. I suspect the movement disorder may be mimicking seizure-like activity on the EEG. Patient currently is on Keppra. * Suggest weaning off Depakote if possible, to help with the tremors. * Also suggest switching from Haldol to low potency antipsychotic, if possible. * Continue Cogentin 0.5 mg 3 times a day. Consider increasing dose to 1 mg twice a day. * Psychiatry is following the patient. * Patient's ammonia is normal <9, liver panel normal, TSH is 5.6, mildly elevated. Prolactin level normal. Depakote level <10.0. B12 539 and folate 18.8.
[2020-02-19] MEDS: LACTATED RINGERS 1,000 ML IV SCH (20:21)
[2020-02-19] MEDS: SODIUM CHLORIDE 0.9% 1,000 ML IV SCH (20:22)
--- NOTE | 2020-02-20 00:35 | PN ---
PROGRESS NOTE DATE OF SERVICE: 02/19/2020 REASON FOR FOLLOWUP: Fever possible abdominal source. INTERVAL HISTORY: The patient is currently afebrile. The patient has been breathing comfortably on room air. The patient did have a HIDA scan completed. No vomiting or diarrhea has been reported by the nursing staff. The patient herself was not able to provide any history. PHYSICAL EXAMINATION: Blood pressure is 123/70 with a pulse of 79, temperature 98.5. She is 96% on room air. General description is a middle-aged female lying in bed in no distress. RESPIRATORY SYSTEM: Unlabored breathing, decreased breath sounds at the bases. No wheeze. HEART: S1, S2. Regular rate and rhythm. ABDOMEN: Soft, no tenderness. EXTREMITIES: No edema of the feet. LABS: White count is normal. Lower extremity Doppler has been negative. HIDA scan was negative. DIAGNOSTIC IMPRESSION AND PLAN: Patient with fever, possible abdominal source though so far culture has been negative for resistant pathogen. Antibiotic will be adjusted to Unasyn. Discontinue vancomycin and Zosyn. Monitor clinical course closely. MMODL / IJN: [id number] /
[2020-02-20] MEDS: levETIRAcetam IV 500 MG in SODIUM CHLORIDE 0.9% 100 ML IVPB SCH ×2 (01:10→13:03)
[2020-02-20] MEDS: AMPICILLIN-SULBACTAM 3 GM in SODIUM CHLORIDE 0.9% 100 ML IVPB SCH ×4 (01:47→17:59)
[2020-02-20] MEDS ORDERED: VANCOMYCIN TROUGH DUE 1 EACH MISC MISCELLANE ONE (05:00)
[2020-02-20 05:11] LABS: African American GFR (CKD) >90 (>60 ml/min/1.73 sqM); Non-African American GFR(CKD) >90 (>60 ml/min/1.73 sqM)
[2020-02-20] MEDS: AMIODARONE 200 MG TAB PO SCH (07:18)
[2020-02-20] MEDS: HEPARIN SODIUM,PORCINE 5,000 UNIT/ML 1 ML VIAL SQ SCH ×2 (07:18→22:05)
[2020-02-20] MEDS: BENZTROPINE MESYLATE 0.5 MG TAB PO SCH ×3 (07:18→22:05)
[2020-02-20] MEDS: VALPROIC ACID ORAL SOLN 250 MG/5 ML CUP PEG/G-TUBE SCH ×2 (07:18→22:05)
[2020-02-20] MEDS: HALOPERIDOL 5 MG TAB PO SCH (07:18)
[2020-02-20] MEDS: PANTOPRAZOLE 40 MG/10 ML VIAL IVP SCH (07:18)
--- NOTE | 2020-02-20 13:26 | P.DS ---
Providers Date of admission: 02/12/20 15:20 Expected date of discharge: 02/20/20 Attending physician: Trena Cruz Consults: 02/12/20 15:25 Consult Physician Routine Consulting Provider: Lance Kowalski Consult Reason/Comments: aspiration pneumonia Do you want consulting provider notified?: Yes 02/13/20 12:32 Consult Physician Routine Consulting Provider: Tuyet Rubio Consult Reason/Comments: involuntary tremors Do you want consulting provider notified?: Yes 02/14/20 12:18 Consult Physician Routine Consulting Provider: Benji Leslie Consult Reason/Comments: hx of schizophrenia Do you want consulting provider notified?: Yes 02/18/20 13:10 Consult Physician Routine Consulting Provider: Evens Kelley Consult Reason/Comments: Fever Do you want consulting provider notified?: Yes Primary care physician: Stated None Hospital Course: Final diagnosis Fever, possible aspiration pneumonia with possible sepsis, present on admission, on broad-spectrum IV antibiotics Continued fever, improved Change in mental status, acute metabolic on chronic Dysphagia with aspiration pneumonia, status post PEG tube placement Ruled out encephalitis or colitis with hostile thickening in the cecum, ruled out neoplasm per computed tomography scan Minimal mild leukopenia Anemia macrocytic Severe hypokalemia Hyponatremia Hypoalbuminemia with mild protein calorie malnutrition History of recent laparotomy as well as colostomy with bowel obstruction elsewhere history of chronic obstructive pulmonary disease History of hypertension, hyperlipidemia, seizure disorder, history of coarse tremors, history of sleep apnea History of syncope History of mental retardation history of pancytopenia history of sensorineural hearing defect of the left ear History of pericardial cyst History of right-sided aortic arch history of bronchial asthma Chronic constipation History of left-sided liver gland removal history of bipolar depression No code Discharge disposition Patient is being discharged in stable condition with guarded prognosis to [facility] home where she resides and will continue with home care. Patient to follow-up with Dr. Chow in the outpatient setting upon discharge in one week. Patient also instructed to follow up with neurology in the outpatient setting. Patient to continue on oral antibiotics via PEG tube in the form of Augmentin twice daily for the next 1 week and then may discontinue. Total time taken is 35 minutes. History of present illness This is a 59-year-old female who was recently admitted with fevers and possible aspiration pneumonia and PEG tube placement and is being closely monitored. Multiple consultations were following. Patient continues to have tremors most likely parkinsonian's and will need outpatient neurology follow-up. She was seen and evaluated by neurology recommending weaning off of Depakote as patient continues with Keppra in the outpatient setting. Patient also had PEG tube placement and surgery was following closely. Patient to continue with tube feedings as mentioned previously and maintaining 45 head of the bed elevated for strict aspiration precautions. Patient was also found to have possible aspiration pneumonia and was treated with IV antibiotics and we'll transition to Augmentin solution via PEG tube twice daily for the next 7 days and then may discontinue. During hospitalization patient underwent a venous Doppler which was within normal limits also HIDA scan showing no acute abnormalities. Patient will be discharged to [facility] home today and will continue with home care in the outpatient setting. On exam vital signs are stable. Temp is 98.3F, pulse is 58, respirations are 16, blood pressure is 97/69, oxygen saturation is 99% on room air. Cardio S1, S2 are present. Respiratory system shows diminished breath sounds at the bases with some mild rhonchi noted. Abdomen is soft and nontender. PEG tube noted. Nervous system shows no focal deficits and continuous tremors. Please refer to medication reconciliation sheet for a list of medications. Plan - Discharge Summary New Discharge Prescriptions: New Amoxic-Pot Clav 400-57Mg/5Ml [Augmentin 400-57 mg/5 ml Liquid] 5 ml PO Q12H 7 Days #1.5 bottle Benztropine Mesylate [Cogentin] 0.5 mg PO TID #60 tab Valproic Acid Oral Soln [Depakene Syrup] 250 mg PEG/G-TUBE BID #240 ml levETIRAcetam ORAL SOLN [Keppra Oral Soln] 500 mg OG-TUBE BID #300 ml Acetaminophen Tab [Tylenol] 650 mg PO Q6HR PRN tab PRN Reason: Fever And/ Or Pain Continue Ipratropium-Albuterol Nebulize [Duoneb 0.5 mg-3 mg/3 ml Soln] 3 ml INHALATION RT-TID PRN PRN Reason: Shortness Of Breath Haloperidol 5 mg PO DAILY@0700 Benztropine Mesylate 0.5 mg PO TID@0700,1600,2000 Ergocalciferol (Vitamin D2) [Drisdol] 50,000 unit PO Q7D Amiodarone [Cordarone] 200 mg PO W/BRKFST LORazepam [Ativan] 1 mg PO TID@0700,1599,1999 PRN #6 tab PRN Reason: Anxiety Discontinued Divalproex Sprinkle [Depakote Sprinkle] 250 mg PO TID@0700,1599,1999 Discharge Medication List Ipratropium-Albuterol Nebulize [Duoneb 0.5 mg-3 mg/3 ml Soln] 3 ml INHALATION RT-TID PRN 09/15/18 [History] Amiodarone [Cordarone] 200 mg PO W/BRKFST 02/12/20 [History] Benztropine Mesylate 0.5 mg PO TID@0700,1599,199902/12/20 [History] Ergocalciferol (Vitamin D2) [Drisdol] 50,000 unit PO Q7D 02/12/20 [History] Haloperidol 5 mg PO DAILY@0700 02/12/20 [History] Acetaminophen Tab [Tylenol] 650 mg PO Q6HR PRN tab 02/20/20 [Rx] Amoxic-Pot Clav 400-57Mg/5Ml [Augmentin 400-57 mg/5 ml Liquid] 5 ml PO Q12H 7 Days #1.5 bottle 02/20/20 [Rx] Benztropine Mesylate [Cogentin] 0.5 mg PO TID #60 tab 02/20/20 [Rx] LORazepam [Ativan] 1 mg PO TID@0700,1599,1999 PRN #6 tab 02/20/20 [Rx] Valproic Acid Oral Soln [Depakene Syrup] 250 mg PEG/G-TUBE BID #240 ml 02/20/20 [Rx] levETIRAcetam ORAL SOLN [Keppra Oral Soln] 500 mg OG-TUBE BID #300 ml 02/20/20 [Rx] Follow up Appointment(s)/Referral(s): [facility],Home Care [NON-STAFF] - [facility], [REFERRING] - Charly Chow MD [STAFF PHYSICIAN] - 1 Week Activity/Diet/Wound Care/Special Instructions: Please call patient's [facility] for transport home at d/c. [phone] Patient returning to [facility] home care Surgery the outpatient setting in 1 week Follow-up with Primary care provider in the outpatient setting Follow-up with neurology in the outpatient setting Continue current tube feedings with Jevity 1.0 continuous with a goal rate of 65 ML per hour with free water boluses of 30 mL every 4 hours, also monitor residuals Continue with the head of the bed elevated 45 at all times to maintain strict aspiration precautions Continue with antibiotics in the form of Augmentin twice daily for the next 7 days and then may discontinue Discharge Disposition: TRANSFER TO SNF/ECF
--- NOTE | 2020-02-20 14:32 | PN ---
PROGRESS NOTE DATE OF SERVICE: 02/20/2020 REASON FOR FOLLOWUP: Fever, likely abdominal source. INTERVAL HISTORY: The patient is currently afebrile, patient is breathing comfortably on room air 99%. The patient is nonverbal and is unable to provide any history. No diarrhea has been reported. PHYSICAL EXAMINATION: Blood pressure is 97/69 with a pulse of 58, temperature 98.1, she is 99% on room air. General description is a middle-aged female, lying in bed in no distress. RESPIRATORY SYSTEM: Unlabored breathing, clear to auscultation anteriorly. HEART: S1, S2. Regular rate and rhythm. ABDOMEN: Soft, no tenderness. LABS: Creatinine 0.57. CBC was not done. Vancomycin trough is 12.7. CRP was 10.6. Blood cultures have been negative. DIAGNOSTIC IMPRESSION AND PLAN: Patient with fever, possible abdominal source in this patient who is status post multiple workup. No obvious abscess or cellulitis has been documented. The patient's current Unasyn that will be transitioned to oral Augmentin 875 b.i.d. for about a week and close outpatient followup. Plan of care was discussed with the nurse practitioner for admitting team working on discharge. MMODL / IJN: [id number] /
--- NOTE | 2020-02-20 14:41 | PN ---
PROGRESS NOTE PULMONARY/CRITICAL CARE PROGRESS NOTE: DATE OF SERVICE: 02/20/2020 This is a patient who was again seen on the general medical floor. She is seen on February 20, 2020. She is currently resting in bed. She IS maintaining good saturations on room air. She is not requiring any supplemental oxygen. She is awake and alert. She does have continuous tremors, particularly of the upper extremities. She also is doing well from the temperature standpoint. Today, she is afebrile and her temperature pattern over the last number of days has improved. Her procalcitonin level was 0.06. She is on vancomycin and Zosyn. Current vital signs are reviewed. Temperature is 98.3, heart rate 58, respiratory rate 16, blood pressure 97/69 mean 78, room-air saturation 99%. She appears in no acute distress. HEENT: Examination is grossly unremarkable. Mucous membranes are moist. No supplemental oxygen. NECK: Supple. Full range of motion. No adenopathy or thyromegaly. Neck veins are flat. CARDIOVASCULAR: Examination reveals regular rhythm and rate. Heart rate 60 beats per minute. S1, S2 normal. LUNGS: Reveal mostly clear breath sounds. A few scattered mild rhonchi. No wheezes or crackles. ABDOMEN: Soft. EXTREMITIES Intact. No cyanosis, clubbing, or edema. SKIN: Without rash. NEUROLOGIC: Examination is brief and unchanged. MICROBIOLOGY Blood cultures from February 11, February 14 and February 17 are all negative. MEDICATIONS Reviewed. She is currently on Tylenol, Cordarone, Unasyn, Cogentin, vitamin D2, Haldol, subcu heparin, Dilaudid p.r.n., Keppra, Ativan, magnesium replacement, Narcan, Protonix, potassium replacement, and Depakene. ASSESSMENT 1. Acute febrile illness, of unclear etiology. Patient currently remains on Unasyn. COVID-19 status is negative. 2. Chronic dysphagia, with possible chronic aspiration. 3. History of seizure disorder. 4. Chronic cognitive deficit. 5. Recent history of bowel obstruction, status post colectomy and colostomy. 6. History of sleep apnea. 7. History of chronic bronchial asthma. 8. Chronic constipation. 9. History of bipolar depression. 10.Hyperlipidemia. 11.Involuntary tremors. PLAN The patient currently is on Unasyn. Her temperature profile shows improvement. She is clinically stable. Could be considered for discharge in the near future. Will leave that to the primary service. No additional recommendations are made. MMODL / IJN: [id number] /
[2020-02-20] MEDS: SODIUM CHLORIDE 0.9% 1,000 ML IV SCH (17:57)
--- NOTE | 2020-02-20 19:52 | P.PN ---
Subjective Progress Note Date: 02/20/20 Patient was seen in neurologic consultation by Dr. Rubio on 02/14/2020. Patient was today seen for a follow-up. Patient is laying comfortably in the bed. She continues to have at least moderate to severe tremors at rest of her hands and chin. Patient mumbles, does not offer any complaints. Patient lives in an adult foster care facility. Patient does not talk intelligibly, only mumbles, does not walk. Spoke to patient's primary physician Miss Anne-Marie Hall PA-C, who mentioned that patient has history of mental retardation, psychiatric disorder. This is a baseline. No seizures have been reported. Objective - Vital Signs Vital signs: Vital Signs Temp 98.4 F 02/20/20 15:00 Pulse 70 02/20/20 15:00 Resp 18 02/20/20 16:00 BP 100/63 02/20/20 15:00 Pulse Ox 98 02/20/20 15:00 Intake & Output 02/20/20 02/20/20 02/21/20 06:59 18:59 06:59 Intake Total 650 910 Output Total 700 550 Balance -50 360 Intake: Tube Feeding 650 910 Output: Urine 700 550 Other: Voiding Method Diaper Diaper Incontinent Incontinent # Voids 1 - Exam Patient has at least moderate to severe tremors at rest of both hands as well as chin. Tone is markedly increased in both arms and legs. Patient appears bradykinetic. Patient only states "I don't know" for every thing that is asked or presented. - Labs CBC & Chem 7: 02/18/20 06:07 02/20/20 04:47 Labs: Microbiology - Last 24 Hours (Table) 02/18/20 15:45 Blood Culture - Preliminary Blood No Growth after 48 hours 02/15/20 10:22 Blood Culture - Preliminary Blood No Growth after 120 hours 02/15/20 10:22 Blood Culture - Preliminary Blood No Growth after 120 hours Assessment and Plan Assessment: * Tremors at rest involving bilateral arms, chin, likely medication induced. The tremors are probably parkinsonian related to use of Haldol with additional component of Depakote induced tremors. Patient is on Cogentin 0.5 mg 3 times a day. * History of intellectual disability. * Aspiration pneumonia, also probably enhancing these tremors. * History of schizophrenia. * Status post PEG placement for 02/14/2020 Plan: * I reviewed her EEG from 02/14/2020. There is no evidence of status epilepticus. The abnormality noted on the EEG is most likely muscle artifact from rhythmic jaw tremor. We will stop Keppra, as it can produce behavioral issues in patient with intellectual disability. * Suggest weaning off Depakote if possible, to help with the tremors. * Also suggest switching from Haldol to low potency antipsychotic, if possible. * Continue Cogentin 0.5 mg 3 times a day. Consider increasing dose to 1 mg twice a day. * Psychiatry is following the patient. * Patient's ammonia is normal <9, liver panel normal, TSH is 5.6, mildly elevated. Prolactin level normal. Depakote level <10.0. B12 539 and folate 18.8. * Discussed with Anne-Marie Hall PA-C, who agreed with the management.
[2020-02-20] MEDS: LACTATED RINGERS 1,000 ML IV SCH (20:40)
[2020-02-21] MEDS ORDERED: levETIRAcetam ORAL SOLN 500 MG/5 ML CUP PEG/G-TUBE SCH
[2020-02-21] MEDS: AMPICILLIN-SULBACTAM 3 GM in SODIUM CHLORIDE 0.9% 100 ML IVPB SCH ×3 (00:41→12:07)
[2020-02-21] MEDS: AMIODARONE 200 MG TAB PO SCH (07:40)
[2020-02-21] MEDS: HEPARIN SODIUM,PORCINE 5,000 UNIT/ML 1 ML VIAL SQ SCH (07:40)
[2020-02-21] MEDS: PANTOPRAZOLE 40 MG/10 ML VIAL IVP SCH (07:40)
[2020-02-21] MEDS: VALPROIC ACID ORAL SOLN 250 MG/5 ML CUP PEG/G-TUBE SCH (07:40)
[2020-02-21] MEDS: HALOPERIDOL 5 MG TAB PO SCH (07:41)
[2020-02-21] MEDS: BENZTROPINE MESYLATE 0.5 MG TAB PO SCH (07:41)
[2020-02-21 07:43] LABS: African American GFR (CKD) >90 (>60 ml/min/1.73 sqM); Non-African American GFR(CKD) >90 (>60 ml/min/1.73 sqM)
[2020-02-21 08:38] VITALS: BP 143/52; PULSE 74; RESP 17; TEMP 98.3
--- NOTE | 2020-02-21 08:59 | P.PN ---
Subjective Progress Note Date: 02/20/20 Principal diagnosis: This is a 59-year-old female who was recently admitted with fever and possible aspiration pneumonia and underwent PEG tube placement and is being closely monit ored. Surgery and neurology following. Patient continues to have abnormal twitching and jerking movements that most likely appear to be parkinsonian's type movements. Neurology evaluating the patient and recommending discontinuation of Keppra as the EEG shows no epileptiform activity and there brock s been no seizure-like activity. Also discussed with neurology about Depakote weaning in the outpatient setting with neurology and psychiatry follow-up. Patient will be continuing with tube feedings. Patient will be returning to [facility] home and will be having homecare that is being arranged by social work. Awaiting for [facility] home to have an in-service about PEG tube care and monitoring. Objective - Vital Signs Vital signs: Vital Signs Temp 98.3 F 02/21/20 07:00 Pulse 74 02/21/20 07:00 Resp 17 02/21/20 07:00 BP 143/52 02/21/20 07:00 Pulse Ox 99 02/21/20 07:00 Intake & Output 02/20/20 02/21/20 02/21/20 18:59 06:59 18:59 Intake Total 910 585 Output Total 550 500 Balance 360 85 Weight 62.5 kg Intake: Tube Feeding 910 585 Output: Urine 550 500 Other: Voiding Method Diaper Diaper Incontinent Incontinent # Voids 1 - Exam Gen: This is a 59-year-old female in bed, awake, well-developed, well-nourished. HEENT: Head is atraumatic, normocephalic. Pupils equal, round. Sclerae is anicteric. NECK: Supple. No JVD. No lymphadenopathy. No thyromegaly. LUNGS: Diminished breath sounds at the bases with some scattered rhonchi noted. No intercostal retractions. HEART: S1, S2 are muffled ABDOMEN: Soft. Bowel sounds are present. No masses. No tenderness. PEG tube noted EXTREMITIES: No pedal edema. No calf tenderness. NEUROLOGICAL: Patient is awake, nonverbal, confused. At baseline. - Labs CBC & Chem 7: 02/18/20 06:07 02/21/20 06:38 Labs: Abnormal Lab Results - Last 24 Hours (Table) 02/21/20 Range/Units 06:38 Creatinine 0.45 L (0.52-1.04) mg/dL Microbiology - Last 24 Hours (Table) 02/18/20 15:45 Blood Culture - Preliminary Blood No Growth after 48 hours 02/15/20 10:22 Blood Culture - Preliminary Blood No Growth after 120 hours 02/15/20 10:22 Blood Culture - Preliminary Blood No Growth after 120 hours Assessment and Plan Assessment: Fever, possible aspiration pneumonia with possible sepsis, present on admission, on broad-spectrum IV antibiotics Continued fever, improving Change in mental status, acute metabolic on chronic Dysphagia with aspiration pneumonia, status post PEG tube placement Ruled out encephalitis or colitis with hostile thickening in the cecum, ruled out neoplasm per computed tomography scan Minimal mild leukopenia Anemia macrocytic Severe hypokalemia Hyponatremia Hypoalbuminemia with mild protein calorie malnutrition History of recent laparotomy as well as colostomy with bowel obstruction elsewhere history of chronic obstructive pulmonary disease History of hypertension, hyperlipidemia, seizure disorder, history of coarse tremors, history of sleep apnea History of syncope History of mental retardation history of pancytopenia history of sensorineural hearing defect of the left ear History of pericardial cyst History of right-sided aortic arch history of bronchial asthma Chronic constipation History of left-sided liver gland removal history of bipolar depression No code Plan: Continue current medications, management, and symptomatic treatment. Keppra being discontinued. Patient will be returning to [facility] home once the staff there has been in-serviced and educated on PEG tube management. Patient will be continuing with home care at the [facility] home. Neurology following. Patient will need neurology as well as psychiatric follow-up in the outpatient setting. Possible discharge in 24-48 hours.
--- NOTE | 2020-02-21 12:15 | P.PN ---
Subjective Progress Note Date: 02/21/20 Principal diagnosis: Possible aspiration 59-year-old white female patient of Dr. Valenzuela, with multiple medical problems including history of seizure disorder, cognitive deficit, dysphagia, hearing deficit, COPD/chronic bronchial asthma, history of chronic constipation, chronic venous insufficiency, who resides in the nursing home setting. Patient was recently hospitalized in [facility] with a bowel obstruction, and underwent colectomy and colostomy approximately 2 weeks ago. Patient apparently presented to [facility] for evaluation of fever, and diminished oral intake. Was a concern about aspiration pneumonia and patient was transferred to [facility] for further evaluation and treatment. Patient was started on Zosyn for empiric antibiotic coverage, her chest x-ray from 02/12/2020 shows no focal infiltrates. Outside CT chest film reviewed, showing no evidence of acute focal infiltrates. At the time of our evaluation patient is resting quietly in bed, room air pulse ox is 98%, afebrile, hemodynamically stable, she is non-verbal, but does not appear to be in any respiratory distress. She is nothing by mouth for possibility of aspiration, we will have speech therapy evaluate her swallowing ability. Surgical consult has been placed with Dr. Chow in view of recent surgery for bowel obstruction. KUB of the abdomen showed overall nonobstructive bowel gas pattern. On 02/14/2020 patient seen in follow-up on general medical floor. She is awake, she is unable to respond verbally or follow any command, she is noted to have increased involuntary movements and she was evaluated by neurology. She did have a low-grade fever this morning with a temp of 100.4F, but does not appear to be in any respiratory distress, room air pulse ox is 95%, lung sounds are positive for diminished breath sounds at the bases, with a few scattered rhonchi. Patient remains on Zosyn for us to believe aspiration pneumonia and she's been afebrile, blood cultures have been negative. Patient was unable to complete follow-up evaluation related to difficulty following commands, PEG tube placement was recommended the patient is scheduled to undergo PEG tube placement today by Dr. Chow On 02/15/2020 patient seen in follow-up on general medical floor, he status post PEG tube insertion, we anticipate starting tube feedings today, however patient has developed febrile episodes, with a T-max of 102.5F this morning, on follow- up chest x-ray was reviewed showing no acute suspicious pulmonary process. Sounds are clear, diminished at the bases, vitals are stable, she is on room air pulse ox of 94-96%, she has been nothing by mouth. Breathing seems to be nonlabored, no cough or congestion, patient remains on Zosyn for empiric a ntibiotic coverage. Will culture has shown no growth. It is labs have been reviewed showing white blood cell count of 4.0, hemoglobin of 10.2, sodium of 140, potassium is 3.0, chloride is 106, CO2 17, BUN of 9 creatinine 0.72. On 02/21/2020 patient seen in follow-up on general medical floor, she is calm and comfortable, in no acute distress, sitting quietly in bed, room air pulse ox is 99%, patient is afebrile, hemodynamically stable, no acute events overnight, she is breathing comfortably. ID service is following for possibility of sepsis, no obvious source has been found or documented at this time, patient continues on Unasyn for antibiotic coverage, he has been afebrile for last 48 h ours, she is [facility], she has a PEG tube in place for tube feedings. Objective - Vital Signs Vital signs: Vital Signs Temp 98.3 F 02/21/20 07:00 Pulse 74 02/21/20 07:00 Resp 17 02/21/20 07:00 BP 143/52 02/21/20 07:00 Pulse Ox 99 02/21/20 07:00 Intake & Output 02/20/20 02/21/20 02/21/20 18:59 06:59 18:59 Intake Total 910 585 240 Output Total 550 500 Balance 360 85 240 Weight 62.5 kg Intake: Tube Feeding 910 585 240 Output: Urine 550 500 Other: Voiding Method Diaper Diaper Diaper Incontinent Incontinent Incontinent # Voids 1 - Exam GENERAL EXAM: Alert, 59-year-old female, resting comfortably in bed, on room air, patient is nonverbal, appears to have improvement in involuntary movements of upper extremities, and upper body, no apparent distress. She has increased spasticity and upper and lower extremities HEAD: Normocephalic/atraumatic. EYES: Normal reaction of pupils, equal size. Conjunctiva pink, sclera white. NOSE: Clear with pink turbinates. THROAT: No erythema or exudates. NECK: No masses, no JVD, no thyroid enlargement, no adenopathy. CHEST: No chest wall deformity. Symmetrical expansion. LUNGS: Equal air entry with no crackles, wheeze, rhonchi or dullness. CVS: Regular rate and rhythm, normal S1 and S2, no gallops, no murmurs, no rubs ABDOMEN: Soft, nontender. No hepatosplenomegaly, normal bowel sounds, no guarding or rigidity. Patient has colostomy in place EXTREMITIES: No clubbing, no edema, no cyanosis, 2+ pulses and upper and lower extremities. MUSCULOSKELETAL: Muscle strength and tone normal. SPINE: No scoliosis or deformity SKIN: No rashes CENTRAL NERVOUS SYSTEM: Unable to assess, patient is nonverbal - Labs CBC & Chem 7: 02/18/20 06:07 02/21/20 06:38 Labs: Abnormal Lab Results - Last 24 Hours (Table) 02/21/20 Range/Units 06:38 Creatinine 0.45 L (0.52-1.04) mg/dL Microbiology - Last 24 Hours (Table) 02/18/20 15:45 Blood Culture - Preliminary Blood No Growth after 48 hours 02/15/20 10:22 Blood Culture - Preliminary Blood No Growth after 120 hours 02/15/20 10:22 Blood Culture - Preliminary Blood No Growth after 120 hours Assessment and Plan Plan: Assessment: #1. Acute febrile illness rule out possibility of aspiration pneumonia, chest x-ray showed no focal infiltrates, outside CT chest shows no acute pulmonary process. COVID 19 ruled out #2. Chronic dysphagia, rule out chronic aspiration #3. History of seizure disorder #4. Chronic cognitive deficit #5. Recent history of bowel obstruction status post colectomy and colostomy. KUB abdomen showing nonobstructive bowel pattern #6. History of sleep apnea #7. History of chronic bronchial asthma, unspecified #8. History chronic constipation #9. History of bipolar depression #10. Hyperlipidemia #11. Possible sepsis in view of history of febrile illness, with no obvious source or abscess. Patient has been treated with Unasyn for empiric antibiotic coverage, has been afebrile in the last 48 hours. Blood cultures showed no growth Plan: Patient is doing well, she has been afebrile, she's been treated with Unasyn for empiric antibiotic coverage, no obvious source of infection was detected no diarrhea, lung sounds are clear, no evidence of respiratory difficulty, patient is on room air, tolerating tube feedings, she is [facility] to [facility] on oral course of Augmentin. I performed a history & physical examination of the patient and discussed their management with my nurse practitioner, Jessika Nix. I reviewed the nurse practitioner's note and agree with the documented findings and plan of care. Lung sounds are positive for clear breath sounds. The findings and the impression was discussed with the patient. I attest to the documentation by the nurse practitioner. Time with Patient: Less than 30
--- NOTE | 2020-02-21 15:18 | PN ---
PROGRESS NOTE DATE OF SERVICE: 02/21/2020 REASON FOR FOLLOWUP: Fever, possible abdominal source. INTERVAL HISTORY: The patient is currently afebrile. The patient is breathing comfortably on room air. No respiratory distress has been noticed. No vomiting or diarrhea has been reported. Patient is still unable to provide any history. PHYSICAL EXAMINATION: Blood pressure 143/52 with a pulse of 74, temperature 98.3. She is 99% on room air. General description is a middle-aged female lying in bed in no distress. RESPIRATORY SYSTEM: Unlabored breathing. Clear to auscultation anteriorly. HEART: S1, S2. Regular rate and rhythm. ABDOMEN: Soft. No tenderness. LABS: Her creatinine is normal at 0.45. Blood culture has been negative. No CBC was done today. DIAGNOSTIC IMPRESSION AND PLAN: Patient with fever, possible abdominal source in this patient who is status post PEG tube placement for recurrent aspiration pneumonia. The patient's overall fever responded to Augmentin, with which the patient will continue for about a week to finish a course of therapy. Continue supportive care. MMODL / IJN: [id number] /
== END 2020-02-21 13:30 | DRG 871 ==
LOC: 4SSUR 15:20
PROVIDERS: ADMIT Hospitalist; ATTEND Hospitalist
PROC: 3E0G76Z Introduction of Nutritional Substance into Upper GI, Via Natural or Artificial Opening (ICD-10-PCS; principal; 2020-02-14 10:10)
PROC: 0DH63UZ Insertion of Feeding Device into Stomach, Percutaneous Approach (ICD-10-PCS; principal; 2020-02-14 10:10)
DX: A41.9 Sepsis, unspecified organism (principal); J69.0 Pneumonitis due to inhalation of food and vomit; G93.41 Metabolic encephalopathy; E87.1 Hypo-osmolality and hyponatremia; E87.2 Acidosis; F20.2 Catatonic schizophrenia; F31.30 Bipolar disorder, current episode depressed, mild or moderate severity, unspecified; K56.609 Unspecified intestinal obstruction, unspecified as to partial versus complete obstruction; I31.9 Disease of pericardium, unspecified; K81.0 Acute cholecystitis; E44.0 Moderate protein-calorie malnutrition; D61.818 Other pancytopenia; D53.9 Nutritional anemia, unspecified; E78.5 Hyperlipidemia, unspecified; E87.6 Hypokalemia; F70 Mild intellectual disabilities; G25.2 Other specified forms of tremor; R13.10 Dysphagia, unspecified; J44.9 Chronic obstructive pulmonary disease, unspecified; I10 Essential (primary) hypertension; H90.42 Sensorineural hearing loss, unilateral, left ear, with unrestricted hearing on the contralateral side; G47.30 Sleep apnea, unspecified; G40.909 Epilepsy, unspecified, not intractable, without status epilepticus; Z20.828 Contact with and (suspected) exposure to other viral communicable diseases; Z93.3 Colostomy status; Z90.49 Acquired absence of other specified parts of digestive tract; Z81.8 Family history of other mental and behavioral disorders; Z81.0 Family history of intellectual disabilities; Z79.899 Other long term (current) drug therapy; Z79.51 Long term (current) use of inhaled steroids
CPT/HCPCS: 43246; 70450; 71045; 74018; 74177; 78227; 80048; 80051; 80053; 80164; 80202; 81003; 82140; 82550; 82565; 82728; 83615; 83735; 84100; 84145; 84146; 84439; 84443; 85025; 85379; 85652; 86140; 87040; 87635; 93005; 93970; 95816

== ENCOUNTER 2020-08-02 08:30 | Inpatient (IN) | payer MEDICARE, OTHER ==
[2020-07-19 12:33] VITALS: BMI 24.2
[~2020-08-02 08:30] MED LIST: ACETAMINOPHEN TAB 500 MG TAB PO ONE; DEXAMETHASONE SOD PHOSPHATE 10 MG/ML 1 ML VIAL IV ONE; HEPARIN SODIUM,PORCINE 5,000 UNIT/ML 1 ML VIAL SQ ONE; HYDROmorphone 0.5 MG/0.5 ML SYRINGE IVP PRN; ONDANSETRON 4 MG/2 ML VIAL IVP ONE; SCOPOLAMINE 1.5MG/72HR PATCH TRANSDERM ONE; metroNIDAZOLE-NS PMX 500 MG in SALINE 1 100ML.BAG IVPB ONE
[2020-08-02] MEDS: LACTATED RINGERS 1,000 ML IV SCH (09:30)
[2020-08-02] MEDS: MIDAZOLAM 2 MG/2 ML VIAL IV PRN ×2 (09:40→09:53)
--- NOTE | 2020-08-02 09:59 | P.GSHP ---
History of Present Illness H&P Date: 08/02/20 Chief Complaint: History of colon obstruction secondary to fecal obstruction This is a 60-year-old female who has a previous colostomy for fecal obstruction. Patient presents today for reversal of colostomy. The patient has a caregiver. She is unable to give any significant medical history. Past Medical History Past Medical History: COPD, Hyperlipidemia, Pneumonia, Seizure Disorder, Sleep Apnea/CPAP/BIPAP, Syncope Additional Past Medical History / Comment(s): mental retardation, pancytopenia, mild sensorineural hearing loss , HX of dysphagia with aspiration pneumonia, percardial cyst, right side aortic arch, sleep apnea, bronchial asthma, venous insufficincy, chronic constipation; hammer toes, left arm contracture, incontinent at times, walks with 1 person assist., takes pureed diet with thickened liquids., sometimes speech is difficult to understand., Hx of bowel obstruction with colostomy.,anemia., pt resides at [facility] # [phone], Legal Guardian is her sister, Karol [place] # [phone]. History of Any Multi-Drug Resistant Organisms: None Reported Past Surgical History: Orthopedic Surgery Additional Past Surgical History / Comment(s): colectomy with ostomy placement; salvary gland left side removed, fx elbow surgery. Past Anesthesia/Blood Transfusion Reactions: No Reported Reaction Additional Past Anesthesia/Blood Transfusion Reaction / Comment(s): per [id number] hx of post-op reaction that she is aware of. Past Psychological History: Bipolar, Depression, Schizophrenia Smoking Status: Never smoker Past Alcohol Use History: None Reported Past Drug Use History: None Reported - Past Family History Mother Family Medical History: No Reported History Medications and Allergies Home Medications Medication Instructions Recorded Confirmed Type Ipratropium-Albuterol Nebulize 3 ml INHALATION Q6HR PRN 09/15/18 08/02/20 History [Duoneb 0.5 mg-3 mg/3 ml Soln] Amiodarone [Cordarone] 200 mg PO DAILY 02/12/20 07/19/20 History haloperidoL [Haloperidol] 5 mg PO HS 02/12/20 07/19/20 History Benztropine Mesylate [Cogentin] 0.5 mg PO BID 07/19/20 07/19/20 History Divalproex Sodium [Depakote] 375 mg PO BID 07/19/20 07/19/20 History Magnesium Hydroxide [Milk of 30 mg PO DAILY 07/19/20 07/19/20 History Magnesia Concentrate] Sennosides/Docusate Sodium [Senna 2 each PO HS 07/19/20 07/19/20 History Plus 8.6-50 mg Tablet] levETIRAcetam [Keppra] 500 mg PO BID 07/19/20 07/19/20 History polyethylene glycoL 3350 [Miralax] 17 gm PO HS 07/19/20 07/19/20 History LORazepam [Ativan] 0.5 mg PO BID 08/02/20 08/02/20 History LORazepam [Ativan] 1 mg PO HS 08/02/20 08/02/20 History Allergies Allergy/AdvReac Type Severity Reaction Status Date / Time quetiapine Allergy Unknown Unknown Verified 08/02/20 09:03 lithium Allergy Unknown Verified 08/02/20 09:03 topiramate [From Topamax] Allergy Unknown Verified 08/02/20 09:03 Surgical - Exam - General well developed, well nourished (regional), no distress - Eyes PERRL - ENT normal pinna - Neck no masses - Respiratory normal expansion - Cardiovascular Rhythm: regular - Abdomen Colostomy left lower quadrant Abdomen: soft, non tender Assessment and Plan Assessment: History of colostomy. We'll perform reversal colostomy.
[2020-08-02] MEDS ORDERED: ACETAMINOPHEN IV (For NPO) 1,000 MG/100 ML VIAL IVPB ONE (10:00)
[2020-08-02] MEDS ORDERED: SUCCINYLCHOLINE CHLORIDE 100 MG/5 ML SYR IV ONE (10:23)
[2020-08-02] MEDS ORDERED: LIDOCAINE 1% INJ 10MG/ML (20 ML MDV) ONE (10:23)
[2020-08-02] MEDS ORDERED: GLYCOPYRROLATE 0.2 MG/ML 2 ML VIAL ONE (10:23)
[2020-08-02] MEDS ORDERED: NEOSTIGMINE 1 MG/ML 10 ML VIAL ONE (10:23)
[2020-08-02] MEDS ORDERED: PROPOFOL 10 MG/ML 20 ML VIAL IV ONE (10:23)
[2020-08-02] MEDS ORDERED: ePHEDrine SULFATE/0.9% NACL/PF 50 MG/5 ML SYRINGE IV ONE (10:23)
[2020-08-02] MEDS ORDERED: PHENYLEPHRINE-0.9% NACL SYG 1 MG/10 ML SYRINGE ONE (10:23)
[2020-08-02] MEDS ORDERED: fentaNYL (PF) 50 MCG/ML 2 ML AMP ONE (10:23)
[2020-08-02] MEDS ORDERED: ROCURONIUM 10 MG/ML (10 ML VIAL) IV ONE (10:23)
[2020-08-02] MEDS ORDERED: METOCLOPRAMIDE 5 MG/ML 2 ML VIAL IVP PRN (11:58)
[2020-08-02] MEDS ORDERED: BENZOCAINE/MENTHOL LOZENG 1 EACH LOZENGE MUCOUS MEM PRN (11:58)
[2020-08-02] MEDS ORDERED: ONDANSETRON 4 MG/2 ML VIAL IVP PRN (11:58)
[2020-08-02] MEDS: IPRATROPIUM-ALBUTEROL 3 ML NEB INHALATION PRN (15:47)
[2020-08-02] MEDS: LORazepam 0.5 MG TAB PO SCH (16:30)
[2020-08-02] MEDS: D5-0.45% NACL WITH KCL 20MEQ/L 1,000 ML IV SCH ×2 (17:20→21:24)
[2020-08-02] MEDS: HEPARIN SODIUM,PORCINE 5,000 UNIT/ML 1 ML VIAL SQ SCH ×2 (17:20→23:07)
--- NOTE | 2020-08-02 20:17 | XR ---
EXAMINATION TYPE: XR chest 1V portable DATE OF EXAM: 08/02/2020 COMPARISON: 02/18/2020 HISTORY: Short of breath TECHNIQUE: Single view FINDINGS: There is some linear density left lung base. There is some unusual lucency at the left late ral lung base that could relate to a pneumoperitoneum. This could also be very high splenic flexure o f the colon. There is no heart failure. There are no hilar masses. IMPRESSION: There is some new mild atelectasis left lung base compared to old exam. Lucency at the left diaphragm could relate to a high splenic flexure air or pneumoperitoneum. Lateral view would be helpful for further evaluation if clinically indicated.
[2020-08-02] MEDS: ALVIMOPAN 12 MG CAPSULE PO SCH (21:24)
[2020-08-02] MEDS: DIVALPROEX SPRINKLE 125 MG CAP.SPRINK PO SCH (21:24)
[2020-08-02] MEDS: BENZTROPINE MESYLATE 0.5 MG TAB PO SCH (21:24)
[2020-08-02] MEDS: FAMOTIDINE 20 MG/2 ML VIAL IV SCH (21:25)
[2020-08-02] MEDS: haloperidoL 5 MG TAB PO SCH (21:25)
[2020-08-02] MEDS: LORazepam 1 MG TAB PO SCH (21:25)
[2020-08-02] MEDS: levETIRAcetam 500 MG TAB PO SCH (21:25)
--- NOTE | 2020-08-02 22:41 | CONS ---
CONSULTATION DATE OF SERVICE: 08/02/2020 REASON FOR CONSULTATION: Advice regarding COPD and other multiple medical issues, requested by Surgery. HISTORY OF PRESENT ILLNESS: This 60-year-old woman with a past medical history of multiple medical problems including history of colostomy for diverticulitis, history of aspiration pneumonia, history of COPD, hyperlipidemia, history of pneumonia, seizure disorder, being followed by Dr. Carlitos Valenzuela in the outpatient setting, underwent colostomy reversal by Dr. Chow. The patient being closely monitored. The patient is not communicative. The patient is living in an [facility] home. There is no history of fever, rigors. No history of headache, loss of consciousness, seizures at this time. PAST MEDICAL HISTORY: History of COPD, hyperlipidemia, pneumonia, seizure disorder, sleep apnea, mental retardation, pancytopenia. MEDICATIONS: DuoNeb, Ativan, milk of magnesia, Depakote, MiraLAX, Keppra, Senna, Haloperidol, Cogentin and Cordarone. ALLERGIES: SEROQUEL, LITHIUM and TOPAMAX. Family history, social history and review of systems could not be taken because of the patient's baseline mental status. Negative per chart. PHYSICAL EXAMINATION: Patient is conscious, nonverbal. Pulse is 79. Blood pressure 127/88. Respirations 20, temperature normal. Pulse ox 97% on 2 L. HEENT: Conjunctivae normal. Oral mucosa moist. NECK is no jugular venous distention. No carotid bruit. No lymph node enlargement. CARDIOVASCULAR system: S1, S2 muffled. RESPIRATION: Breath sounds diminished in the bases. A few scattered rhonchi and crackles. ABDOMEN: Soft. Status post surgery. LEGS: No edema. No swelling. NERVOUS : Higher functions as mentioned earlier. Moves all 4 limbs. No focal motor or sensory deficits. LYMPHATICS: No lymph nodes palpable in the neck, axilla or groin. SKIN: No ulcers. No rashes and no bleeding. JOINTS: No active deforming arthropathy. LABS: Potassium 4.3. Previous labs are noted. ASSESSMENT: 1. Status post colostomy reversal. 2. History of chronic obstructive pulmonary disease. 3. Hyperlipidemia. 4. History of pneumonia. 5. History of seizure disorder. 6. History of sleep apnea. 7. History of syncope. 8. History of mental retardation. 9. History of pancytopenia. 10.History of sensorineural hearing defect. 11.History of dysphagia with aspiration. 12.History of pericardial cyst. 13.History of right-sided aortic arch. 14.History of bronchial asthma. 15.History of venous insufficiency. 16.History of chronic constipation. 17.History of hammertoes. 18.History of bowel obstruction with colostomy. 19.History of degenerative joint disease. 20.History of bipolar depression, schizophrenia. 21.FULL CODE. RECOMMENDATIONS AND DISCUSSION: This 60-year-old woman who presented with multiple complex medical issues, we will monitor the patient closely, continue the current medications, management and symptomatic treatment. Otherwise at this time resume the home medications. DVT prophylaxis. Incentive spirometry. Proton pump inhibitors. H2 blockers. We will follow the patient closely. Thank you Dr. Chow for letting us participate in the care of this patient. MMBRAULIOL / IJN: [id number] /
[2020-08-03] MEDS: HYDROmorphone 1 MG/ML 1 ML SYRINGE IVP PRN ×2 (01:33→09:57)
[2020-08-03] MEDS: LACTATED RINGERS 1,000 ML IV SCH (04:58)
[2020-08-03] MEDS: D5-0.45% NACL WITH KCL 20MEQ/L 1,000 ML IV SCH ×2 (04:58→12:39)
[2020-08-03 07:05] LABS: Basophils % (A) 0 %; Eosinophils % (A) 0 %; HCT 38.8 % (34.0-46.0); HGB 12.1 gm/dL (11.4-16.0); Lymphocytes # (A) 0.9 k/uL (1.0-4.8); Lymphocytes % (A) 10 %; MCH 32.2 pg (25.0-35.0); MCHC 31.1 g/dL (31.0-37.0); MCV 103.4 fL (80.0-100.0); Macrocytosis Slight; Mean Platelet Volume 9.3; Monocytes # (A) 0.6 k/uL (0-1.0); Monocytes % (A) 6 %; Neutrophils # (A) 7.2 k/uL (1.3-7.7); Neutrophils % (A) 82 %; Platelet Count 125 k/uL (150-450); RBC 3.75 m/uL (3.80-5.40); RDW 13.4 % (11.5-15.5); WBC 8.8 k/uL (3.8-10.6)
[2020-08-03 07:10] LABS: African American GFR (CKD) >90 (>60 ml/min/1.73 sqM); Anion Gap 2 mmol/L; Blood Urea Nitrogen 9 mg/dL (7-17); Carbon Dioxide 31 mmol/L (22-30); Chloride 105 mmol/L (98-107); Glucose 95 mg/dL (74-99); Non-African American GFR(CKD) >90 (>60 ml/min/1.73 sqM); Potassium 4.2 mmol/L (3.5-5.1); Sodium 138 mmol/L (137-145)
[2020-08-03] MEDS: IPRATROPIUM-ALBUTEROL 3 ML NEB INHALATION PRN (07:40)
--- NOTE | 2020-08-03 07:49 | P.PN ---
Progress Note - Text Progress Note Date: 08/03/20 Patient status post reversal of colostomy. She is doing fairly well. On exam her vital signs are stable. Abdomen soft. Incisions clean dry tach.. Patient maintained on clear liquid diet.
[2020-08-03] MEDS: HEPARIN SODIUM,PORCINE 5,000 UNIT/ML 1 ML VIAL SQ SCH ×2 (09:31→16:58)
[2020-08-03] MEDS: FAMOTIDINE 20 MG/2 ML VIAL IV SCH ×2 (09:31→20:35)
[2020-08-03] MEDS: ALVIMOPAN 12 MG CAPSULE PO SCH ×2 (09:31→20:34)
[2020-08-03] MEDS: AMIODARONE 200 MG TAB PO SCH (09:31)
[2020-08-03] MEDS: DIVALPROEX SPRINKLE 125 MG CAP.SPRINK PO SCH ×2 (09:31→20:34)
[2020-08-03] MEDS: BENZTROPINE MESYLATE 0.5 MG TAB PO SCH ×2 (09:32→20:34)
[2020-08-03] MEDS: levETIRAcetam 500 MG TAB PO SCH ×2 (09:32→20:34)
[2020-08-03] MEDS: LORazepam 0.5 MG TAB PO SCH ×2 (12:22→16:58)
[2020-08-03] MEDS: IPRATROPIUM-ALBUTEROL 3 ML NEB INHALATION SCH ×2 (15:27→19:38)
--- NOTE | 2020-08-03 16:14 | PN ---
PROGRESS NOTE DATE OF SERVICE: 08/03/2020 This is a 60-year-old woman who was admitted after a colostomy reversal, is being closely monitored. Patient is sedated with pain medications. The chest x-ray showed some atelectasis of the left lung. The patient's is on DVT prophylaxis. The sodium is 138. PAST MEDICAL HISTORY: Reviewed. REVIEW OF SYSTEMS: Could not be taken. The patient is slightly drowsy. CURRENT MEDICATIONS: Reviewed and include DuoNeb, Cordarone, Cepacol, Cogentin, Depakote, Pepcid, Haldol, heparin, Dilaudid, Keppra, Ativan, Reglan, Protonix. PHYSICAL EXAM: GENERAL: The patient is drowsy from the IV pain medications. VITAL SIGNS: Pulse 66, blood pressure 193/82, respirations 16, temperature 98.1, pulse ox 99% on room air HEENT: Conjunctivae normal. NECK: No jugular venous distention. RESPIRATORY: Breath sounds diminished at the bases. A few scattered rhonchi. HEART: S1 and S2, muffled. ABDOMEN: Soft, status post surgery. EXTREMITIES: No edema, no swelling. NERVOUS: No focal deficits. LABS: At this time, WBC 8.2, hemoglobin 12.2 and MCV 1023, platelets are 125. ASSESSMENT: 1. Status post colostomy reversal. 2. Atelectasis on the left lung. 3. Chronic obstructive pulmonary disease. 4. Hyperlipidemia. 5. Mild thrombocytopenia. 6. History of pneumonia. 7. History of seizure disorder. 8. History of sleep apnea. 9. History of syncope. 10.History of mental retardation. 11.History of pancytopenia. 12.History of sensorineural hearing defects. 13.History of dysphagia with aspiration. 14.History of pericardial cyst. 15.History of right-sided aortic arch. 16.History of bronchial asthma. 17.History of venous insufficiency. 18.History of chronic constipation. 19.History of hammertoes. 20.History of bowel obstruction with colostomy. 21.History of degenerative joint disease. 22.History of bipolar, depressed with schizophrenia. 23.FULL CODE. RECOMMENDATIONS AND DISCUSSION: Recommend to continue current medications, continue to monitor. Symptomatic treatment. Otherwise at this time I recommend [id number] bronchodilators, incentive spirometry. Proton pump inhibitors and also as well as DVT prophylaxis. Closely monitor. I would also recommend CBC to monitor the platelets. Otherwise, continue to monitor. Further recommendations to follow. MMODL / IJN: [id number] / DASIA
[2020-08-03] MEDS: PANTOPRAZOLE 40 MG/10 ML VIAL IVP SCH (17:03)
[2020-08-03] MEDS ORDERED: ACETAMINOPHEN TAB 325 MG TAB PO PRN (17:37)
--- NOTE | 2020-08-03 18:57 | XR ---
EXAMINATION TYPE: XR chest 1V portable DATE OF EXAM: 08/03/2020 COMPARISON: NONE HISTORY: Chest pain. Fever. TECHNIQUE: FINDINGS: There is some patchy linear density at the lung bases. There is no heart failure. Heart is shifted slightly to the right side. There are no hilar masses. Bony thorax appears intact. IMPRESSION: Atelectasis at the lung bases is increased compared to yesterday. There is more volume lo ss in the right side and shift of the heart slightly to the right side.
[2020-08-03] MEDS ORDERED: ACETAMINOPHEN TAB 325 MG TAB PO STA (19:29)
[2020-08-03] MEDS: haloperidoL 5 MG TAB PO SCH (20:34)
[2020-08-03] MEDS: LORazepam 1 MG TAB PO SCH (20:34)
[2020-08-03] MEDS: PIPERACILLIN-TAZOBACTAM 3.375 GM in SODIUM CHLORIDE 0.9% 100 ML IVPB SCH (22:29)
[2020-08-04] MEDS: D5-0.45% NACL WITH KCL 20MEQ/L 1,000 ML IV SCH ×2 (00:06→21:56)
[2020-08-04] MEDS: HEPARIN SODIUM,PORCINE 5,000 UNIT/ML 1 ML VIAL SQ SCH ×3 (01:06→15:49)
[2020-08-04] MEDS: HYDROmorphone 0.5 MG/0.5 ML SYRINGE IVP PRN ×2 (01:21→14:18)
[2020-08-04 02:12] LABS: Appearance,Urine Cloudy (Clear); Bacteria,Urine Few /hpf; Bilirubin,Urine Negative (Negative); Blood,Urine Moderate (Negative); Color,Urine Light Yellow; Glucose,Urine (UA) Negative (Negative); Hyaline Casts,Urine 1 /lpf (0-2); Ketones,Urine Negative (Negative); Leukocyte Esterase,Urine Large (Negative); Mucus,Urine Rare /hpf; Nitrite,Urine Negative (Negative); Protein,Urine Negative (Negative); RBC,Urine 62 /hpf (0-5); Specific Gravity,Urine 1.014 (1.001-1.035); Urobilinogen,Urine <2.0 mg/dL (<2.0); WBC,Urine 21 /hpf (0-5)
[2020-08-04] MEDS: PIPERACILLIN-TAZOBACTAM 3.375 GM in SODIUM CHLORIDE 0.9% 100 ML IVPB SCH ×3 (05:13→22:02)
[2020-08-04 06:18] LABS: Basophils % (A) 0 %; Eosinophils % (A) 0 %; HGB 11.6 gm/dL (11.4-16.0); Lymphocytes # (A) 1.1 k/uL (1.0-4.8); Lymphocytes % (A) 17 %; MCH 33.3 pg (25.0-35.0); MCHC 32.2 g/dL (31.0-37.0); MCV 103.5 fL (80.0-100.0); Macrocytosis Slight; Monocytes # (A) 0.4 k/uL (0-1.0); Monocytes % (A) 6 %; Neutrophils # (A) 4.7 k/uL (1.3-7.7); Neutrophils % (A) 75 %; Platelet Count 99 k/uL (150-450); RBC 3.48 m/uL (3.80-5.40); RDW 13.2 % (11.5-15.5); WBC 6.3 k/uL (3.8-10.6)
[2020-08-04] MEDS: ALVIMOPAN 12 MG CAPSULE PO SCH ×2 (08:07→22:01)
[2020-08-04] MEDS: DIVALPROEX SPRINKLE 125 MG CAP.SPRINK PO SCH ×2 (08:08→22:01)
[2020-08-04] MEDS: PANTOPRAZOLE 40 MG/10 ML VIAL IVP SCH (08:08)
[2020-08-04] MEDS: FAMOTIDINE 20 MG/2 ML VIAL IV SCH ×2 (08:08→22:01)
[2020-08-04] MEDS: levETIRAcetam 500 MG TAB PO SCH ×2 (08:09→22:02)
[2020-08-04] MEDS: BENZTROPINE MESYLATE 0.5 MG TAB PO SCH ×2 (08:09→22:01)
[2020-08-04] MEDS: LACTATED RINGERS 1,000 ML IV SCH (08:10)
--- NOTE | 2020-08-04 08:15 | P.PN ---
Progress Note - Text Progress Note Date: 08/04/20 Patient appears to be agitated this morning. She is receiving clear liquid diet. On exam vital signs are stable. Abdomen is soft. Incision is clean dry intact. It. Patient will continue clear liquid diet until she has resumed bowel function.
[2020-08-04] MEDS: AMIODARONE 200 MG TAB PO SCH (08:22)
[2020-08-04] MEDS: IPRATROPIUM-ALBUTEROL 3 ML NEB INHALATION SCH ×4 (08:39→20:40)
[2020-08-04] MEDS: LORazepam 0.5 MG TAB PO SCH ×2 (12:38→15:56)
--- NOTE | 2020-08-04 16:00 | PN ---
PROGRESS NOTE DATE OF SERVICE: 08/04/2020 This 60-year-old woman was admitted after a colostomy reversal is being closely monitored. Patient is much more alert at this time. A repeat chest x-ray done yesterday showed some atelectasis on the left lower lobe. No chest pain. No palpitations. No fever. PHYSICAL EXAMINATION: Pulse is 68. Blood pressure 98/57, respiration 16, temperature 99.2, pulse ox 100% on 2 L. the patient is noncommunicative, which is the patient's baseline. HEENT: Conjunctivae normal. NECK: No JVD. CARDIOVASCULAR: S1, S2 muffled. RESPIRATORY: Breath sounds diminished in the bases. Bilateral scattered rhonchi and crackles. ABDOMEN: Soft. Status post surgery. LEGS are no edema. No swelling. NERVOUS SYSTEM: No focal deficits. LAB STUDIES: UA shows possibly UTI. ASSESSMENT: 1. Status post colostomy reversal. 2. Atelectasis on the left lung. 3. Chronic obstructive pulmonary disease. 4. Acute urinary tract infection. 5. Hyperlipidemia. 6. Mild thrombocytopenia. 7. History of pneumonia. 8. History of seizure disorder. 9. History of sleep apnea. 10.History of syncope. 11.History of mental retardation. 12.History of pancytopenia. 13.History of sensorineural hearing defect. 14.History of dysphagia with aspiration. 15.History of pericardial cyst. 16.History of right-sided aortic arch. 17.History of bronchial asthma. 18.History of venous insufficiency. 19.History of chronic constipation. 20.History of hammertoes. 21.History of bowel obstruction with colostomy. 22.History of degenerative joint disease. 23.History of bipolar depression, schizophrenia. 24.FULL CODE. RECOMMENDATIONS AND DISCUSSION: In this 60-year-old woman who presented with multiple complex medical issues, we will monitor the patient closely, continue the current management and symptomatic treatment, bronchodilators. I would recommend add a course of empiric antibiotics. Closely monitor. Further recommendations to follow. Closely follow with surgery. Patient is on IV Zosyn. MMODL / IJN: [id number] /
[2020-08-04] MEDS: LORazepam 1 MG TAB PO SCH (22:01)
[2020-08-04] MEDS: haloperidoL 5 MG TAB PO SCH (22:02)
[2020-08-05] MEDS: ACETAMINOPHEN TAB 325 MG TAB PO PRN (00:57)
[2020-08-05] MEDS: HEPARIN SODIUM,PORCINE 5,000 UNIT/ML 1 ML VIAL SQ SCH ×4 (00:57→23:32)
[2020-08-05] MEDS: HYDROmorphone 0.5 MG/0.5 ML SYRINGE IVP PRN ×4 (00:58→23:36)
[2020-08-05] MEDS: D5-0.45% NACL WITH KCL 20MEQ/L 1,000 ML IV SCH (01:09)
[2020-08-05] MEDS: PIPERACILLIN-TAZOBACTAM 3.375 GM in SODIUM CHLORIDE 0.9% 100 ML IVPB SCH ×3 (06:24→20:14)
[2020-08-05] MEDS: LACTATED RINGERS 1,000 ML IV SCH (06:45)
[2020-08-05 06:58] LABS: Basophils % (A) 1 %; Eosinophils # (A) 0.1 k/uL (0-0.7); Eosinophils % (A) 1 %; HCT 32.7 % (34.0-46.0); HGB 10.7 gm/dL (11.4-16.0); Lymphocytes # (A) 1.2 k/uL (1.0-4.8); Lymphocytes % (A) 26 %; MCH 33.5 pg (25.0-35.0); MCHC 32.6 g/dL (31.0-37.0); MCV 102.7 fL (80.0-100.0); Macrocytosis Slight; Mean Platelet Volume 9.2; Monocytes # (A) 0.3 k/uL (0-1.0); Monocytes % (A) 5 %; Neutrophils % (A) 64 %; RBC 3.18 m/uL (3.80-5.40); RDW 13.1 % (11.5-15.5); WBC 4.7 k/uL (3.8-10.6)
[2020-08-05 07:05] LABS: Platelet Count 91 k/uL (150-450)
[2020-08-05] MEDS: levETIRAcetam 500 MG TAB PO SCH ×2 (07:24→20:16)
[2020-08-05] MEDS: AMIODARONE 200 MG TAB PO SCH (07:24)
[2020-08-05] MEDS: ALVIMOPAN 12 MG CAPSULE PO SCH ×2 (07:24→20:15)
[2020-08-05] MEDS: DIVALPROEX SPRINKLE 125 MG CAP.SPRINK PO SCH ×2 (07:24→20:15)
[2020-08-05] MEDS: FAMOTIDINE 20 MG/2 ML VIAL IV SCH ×2 (07:25→20:14)
[2020-08-05] MEDS: BENZTROPINE MESYLATE 0.5 MG TAB PO SCH ×2 (07:25→20:15)
[2020-08-05] MEDS: PANTOPRAZOLE 40 MG/10 ML VIAL IVP SCH (07:25)
[2020-08-05] MEDS: IPRATROPIUM-ALBUTEROL 3 ML NEB INHALATION SCH ×4 (08:41→20:01)
[2020-08-05] MEDS ORDERED: PHENYLEPHRINE-0.9% NACL SYG 1 MG/10 ML SYRINGE ONE (10:23)
[2020-08-05] MEDS ORDERED: PROPOFOL 10 MG/ML 20 ML VIAL IV ONE (10:23)
[2020-08-05] MEDS ORDERED: ePHEDrine SULFATE/0.9% NACL/PF 50 MG/5 ML SYRINGE IV ONE (10:23)
[2020-08-05] MEDS ORDERED: LIDOCAINE 1% INJ 10MG/ML (20 ML MDV) ONE (10:23)
[2020-08-05] MEDS ORDERED: NEOSTIGMINE 1 MG/ML 10 ML VIAL ONE (10:23)
[2020-08-05] MEDS ORDERED: ROCURONIUM 10 MG/ML (10 ML VIAL) IV ONE (10:23)
[2020-08-05] MEDS ORDERED: SUCCINYLCHOLINE CHLORIDE 100 MG/5 ML SYR IV ONE (10:23)
[2020-08-05] MEDS ORDERED: fentaNYL (PF) 50 MCG/ML 2 ML AMP ONE (10:23)
[2020-08-05] MEDS ORDERED: GLYCOPYRROLATE 0.2 MG/ML 2 ML VIAL ONE (10:23)
--- NOTE | 2020-08-05 12:16 | P.PN ---
Subjective Progress Note Date: 08/05/20 CHIEF COMPLAINT: Status post colostomy reversal HISTORY OF PRESENT ILLNESS: Patient is lying in bed comfortably sleeping. She just received pain medication. Per nursing staff patient has not had any bowel movements. And no nausea. She is afebrile. WBC is 4.7 hemoglobin 10.7 Currently on a clear liquid diet PHYSICAL EXAM: VITAL SIGNS: Reviewed. GENERAL: Well-developed in no acute distress. HEENT: No sclera icterus. Extraocular movements grossly intact. Moist buccal mucosa. Head is atraumatic, normocephalic. ABDOMEN: Soft. Nondistended. Incision clean dry and intact NEUROLOGIC: Sleeping comfortably ASSESSMENT: 1. Status post reversal of colostomy 2. UTI PLAN: -Continue clear liquid diet -Antibiotics per medicine for UTI -Continue GI and DVT prophylaxis Physician Credit Risk Modeler note has been reviewed by physician. Signing provider agrees with the documented findings, assessment, and plan of care. Objective - Vital Signs Vital signs: Vital Signs Temp 97.8 F 08/05/20 07:00 Pulse 70 08/05/20 11:23 Resp 16 08/05/20 07:00 BP 116/63 08/05/20 07:00 Pulse Ox 97 08/05/20 07:00 Intake & Output 08/04/20 08/05/20 08/05/20 18:59 06:59 18:59 Intake Total 480 Output Total 900 1200 Balance -420 -1200 Intake: IV 480 D5-0.45% NaCl with KCl 480 20Meq/l 1,000 ml @ 60 mls /hr IV .[id number] [facility] Rx#: [id number] Output: Urine 900 1200 Other: Voiding Method Indwelling Catheter Indwelling Catheter - Labs CBC & Chem 7: 08/05/20 06:24 08/03/20 06:17 Labs: Abnormal Lab Results - Last 24 Hours (Table) 08/05/20 Range/Units 06:24 RBC 3.18 L (3.80-5.40) m/uL Hgb 10.7 L (11.4-16.0) gm/dL Hct 32.7 L (34.0-46.0) % MCV 102.7 H (80.0-100.0) fL Plt Count 91 L (150-450) k/uL Microbiology - Last 24 Hours (Table) 08/04/20 01:00 Urine Culture - Preliminary Urine,Catheterized
[2020-08-05] MEDS: LORazepam 0.5 MG TAB PO SCH ×2 (12:42→17:05)
--- NOTE | 2020-08-05 15:42 | PN ---
PROGRESS NOTE DATE OF SERVICE: 08/05/2020 This 60-year-old woman who was admitted after a colostomy reversal is being closely monitored. Patient is much more alert today. The patient has abnormal movements, involuntary movements at this time. No chest pain. No palpitations. No fever. PHYSICAL EXAMINATION: Patient is conscious, nonverbal. Pulse is 57, blood pressure 116/63, respiration 16, temperature 97.8, pulse ox 97% on room air. HEENT: Conjunctivae normal. NECK: No jugular venous distention. CARDIOVASCULAR SYSTEM: S1, S2 muffled. RESPIRATORY SYSTEM: Breath sounds diminished at the bases. A few scattered rhonchi. ABDOMEN: Soft. Status post surgery. LEGS: No edema. No swelling. NERVOUS SYSTEM: Diffuse abnormal movements. Tone is increased. LABS: WBC 4.6, hemoglobin 10.7. UA noted; possibly UTI. ASSESSMENT: 1. Status post colostomy reversal. 2. Atelectasis in the left lung. 3. Acute urinary tract infection. 4. Chronic obstructive pulmonary disease. 5. Abnormal movements. 6. Hyperlipidemia. 7. Mild thrombocytopenia. 8. History of pneumonia. 9. History of seizure disorder. 10.History of sleep apnea. 11.History of syncope. 12.History of mental retardation. 13.History of pancytopenia. 14.History of sensorineural hearing defect. 15.History of dysphagia with aspiration. 16.History of pericarditis. 17.History of right-sided aortic arch. 18.History of bronchial asthma. 19.History of venous insufficiency. 20.History of chronic constipation. 21.History of hammertoes. 22.History of bowel obstruction with colostomy. 23.History of degenerative joint disease. 24.History of bipolar, depression, schizophrenia. 25.FULL CODE. RECOMMENDATIONS AND DISCUSSION: I recommend to continue current medications, continue with the monitoring, symptomatic treatment. Otherwise at this time the urine culture is negative so far. Continue the broad-spectrum IV antibiotics. Neurology evaluation to evaluate the abnormal movements. Patient is currently on IV Zosyn. Guarded prognosis. Further recommendations to follow. MMODL / IJN: [id number] /
--- NOTE | 2020-08-05 18:02 | P.CNNES ---
History of Present Illness Consult date: 08/05/20 Requesting physician: Trena Cruz Reason for Consult: Tremors History of Present Illness: Patient is a 60-year-old female who has previous colostomy for fecal obstruction. Patient presents to the hospital on 08/02/2024 for reversal of colostomy. Patient does have history of mental retardation, pancytopenia, mild sensorineural hearing loss, history of dysphagia. Patient is nonverbal, not able to provide any history. Patient constantly moans and makes unintelligible vocal sounds. Neurology is consulted for tremors. Patient's blood test shows WBC 4.7 hemoglobin 10.7, platelets 91, ESR 35, Chem- 20 normal, ammonia <9 on 02/13/2020. Previous B12 539 on 11/15/2019, folate 18.8 and TSH 5.68 mildly elevated. Patient at home takes Haldol 5 mg at bedtime, amiodarone 200 mg daily, Keppra 500 mg twice a day, Depakote 375 mg twice a day, benztropine 0.5 mg twice a day, lorazepam 0.5 mg twice a day (noon and 4 PM) and 1 mg at bedtime. Review of Systems ROS unobtainable: due to mental status Past Medical History Past Medical History: COPD, Hyperlipidemia, Pneumonia, Seizure Disorder, Sleep Apnea/CPAP/BIPAP, Syncope Additional Past Medical History / Comment(s): mental retardation, pancytopenia, mild sensorineural hearing loss , HX of dysphagia with aspiration pneumonia, percardial cyst, right side aortic arch, sleep apnea, bronchial asthma, venous insufficincy, chronic constipation; hammer toes, left arm contracture, incontinent at times, walks with 1 person assist., takes pureed diet with thickened liquids., sometimes speech is difficult to understand., Hx of bowel obstruction with colostomy.,anemia., pt resides at [facility] # [phone], Legal Guardian is her sister, Karol [place] # [phone]. History of Any Multi-Drug Resistant Organisms: None Reported Past Surgical History: Orthopedic Surgery Additional Past Surgical History / Comment(s): colectomy with ostomy placement; salvary gland left side removed, fx elbow surgery. Past Anesthesia/Blood Transfusion Reactions: No Reported Reaction Additional Past Anesthesia/Blood Transfusion Reaction / Comment(s): per [id number] hx of post-op reaction that she is aware of. Past Psychological History: Bipolar, Depression, Schizophrenia Smoking Status: Never smoker Past Alcohol Use History: None Reported Past Drug Use History: None Reported - Past Family History Mother Family Medical History: No Reported History Medications and Allergies Home Medications Medication Instructions Recorded Confirmed Type Ipratropium-Albuterol Nebulize 3 ml INHALATION Q6HR PRN 09/15/18 08/02/20 History [Duoneb 0.5 mg-3 mg/3 ml Soln] Amiodarone [Cordarone] 200 mg PO DAILY 02/12/20 07/19/20 History haloperidoL [Haloperidol] 5 mg PO HS 02/12/20 07/19/20 History Benztropine Mesylate [Cogentin] 0.5 mg PO BID 07/19/20 07/19/20 History Divalproex Sodium [Depakote] 375 mg PO BID 07/19/20 07/19/20 History Magnesium Hydroxide [Milk of 30 mg PO DAILY 07/19/20 07/19/20 History Magnesia Concentrate] Sennosides/Docusate Sodium [Senna 2 each PO HS 07/19/20 07/19/20 History Plus 8.6-50 mg Tablet] levETIRAcetam [Keppra] 500 mg PO BID 07/19/20 07/19/20 History polyethylene glycoL 3350 [Miralax] 17 gm PO HS 07/19/20 07/19/20 History LORazepam [Ativan] 0.5 mg PO BID 08/02/20 08/02/20 History LORazepam [Ativan] 1 mg PO HS 08/02/20 08/02/20 History Allergies Allergy/AdvReac Type Severity Reaction Status Date / Time quetiapine Allergy Unknown Unknown Verified 08/02/20 09:03 lithium Allergy Unknown Verified 08/02/20 09:03 topiramate [From Topamax] Allergy Unknown Verified 08/02/20 09:03 Physical Examination - Vital Signs Vital Signs: Vital Signs Temp Pulse Pulse Resp BP BP Pulse Ox 08/05/20 15:32 70 08/05/20 15:21 68 08/05/20 15:00 98.9 F 62 16 114/62 93 L 08/05/20 11:23 70 10/19/20 11:14 70 08/05/20 08:55 68 08/05/20 08:41 66 08/05/20 07:00 97.8 F 57 L 16 116/63 97 08/05/20 04:19 18 08/05/20 00:57 18 08/05/20 00:49 99.7 F H 81 18 133/68 93 L 08/04/20 20:40 65 08/04/20 19:54 18 08/04/20 19:02 98.4 F 79 20 151/95 96 08/04/20 16:54 95 Intake and Output 08/05/20 08/05/20 08/05/20 06:59 14:59 22:59 Intake Total 100 Output Total 400 Balance -400 100 Intake: Oral 100 Output: Urine 400 Other: Voiding Method Indwelling Catheter Indwelling Catheter # Voids 3 On examination patient is a late middle aged female, who is laying in the bed, moaning, groaning, making unintelligible vocal sounds. Does not follow commands. Her pupils are round and reacting. Some corneal opacity. Extraocular muscles could not be tested reliably. Visual moncada could not be tested. Face appears symmetric. Patient has poor dentition. Hearing, shoulder shrug could not be tested. On muscle strength testing, she did not cooperate for the testing. Patient has very stiff, dystonic left arm, with a tight fist, and arm held tightly against the chest. Her right foot appears to be dystonic as well. Patient has constant 3 Hz tremor of her arms more so than the legs. Part of it appears habitual/nervous tic. Reflexes are diminished and plantars are withdrawal. Sensory could not be tested. According to the nursing report, she does stand up, takes a few steps but has to be directed. Patient is incontinent of urine. Cerebellar functions could not be tested. Results - Laboratory Findings CBC and BMP: 08/05/20 06:24 08/03/20 06:17 Abnormal Lab Findings: Abnormal Labs 08/03/20 08/03/20 08/04/20 06:17 06:17 05:51 RBC 3.75 L 3.48 L Hgb Hct MCV 103.4 H 103.5 H Plt Count 125 L 99 L Lymphocytes # 0.9 L Carbon Dioxide 31 H Calcium 8.0 L Urine Appearance Urine Blood Ur Leukocyte Esterase Urine RBC Urine WBC Urine Bacteria Urine Mucus 08/04/20 08/05/20 Unknown 06:24 RBC 3.18 L Hgb 10.7 L Hct 32.7 L MCV 102.7 H Plt Count 91 L Lymphocytes # Carbon Dioxide Calcium Urine Appearance Cloudy H Urine Blood Moderate H Ur Leukocyte Esterase Large H Urine RBC 62 H Urine WBC 21 H Urine Bacteria Few H Urine Mucus Rare H Assessment and Plan Assessment: * Tremor of upper and lower extremity with significant rigidity and tremors at rest. Symptoms are Parkinsonian, possibly related to use of Haldol. Depakote can also be associated with coarse tremors. Patient is on Cogentin, but probably not enough to counteract the Parkinsonian side effects. * History of mental retardation * History of colostomy for impacted stools, now admitted for reversal of colostomy. Plan: * Suggest psychiatry consultation to adjust psych medications. Consider increasing dose of Cogentin versus gradually tapering off Depakote and/or Haldol. * We will check Depakote and Keppra levels. We will check thyroid functions to rule out hyperthyroidism. * We will follow.
[2020-08-05 18:19] LABS: Valproic Acid (Depakene) 50.1 ug/mL
[2020-08-05] MEDS: haloperidoL 5 MG TAB PO SCH (20:15)
[2020-08-05] MEDS: LORazepam 1 MG TAB PO SCH (20:15)
[2020-08-06] MEDS: D5-0.45% NACL WITH KCL 20MEQ/L 1,000 ML IV SCH ×2 (01:29→16:50)
[2020-08-06] MEDS: PIPERACILLIN-TAZOBACTAM 3.375 GM in SODIUM CHLORIDE 0.9% 100 ML IVPB SCH ×3 (05:54→20:17)
[2020-08-06] MEDS: LACTATED RINGERS 1,000 ML IV SCH (06:01)
[2020-08-06 06:54] LABS: Basophils % (A) 0 %; Eosinophils # (A) 0.1 k/uL (0-0.7); Eosinophils % (A) 2 %; HCT 34.2 % (34.0-46.0); HGB 10.9 gm/dL (11.4-16.0); Lymphocytes # (A) 0.8 k/uL (1.0-4.8); Lymphocytes % (A) 16 %; MCH 32.8 pg (25.0-35.0); MCHC 31.8 g/dL (31.0-37.0); Macrocytosis Slight; Monocytes # (A) 0.2 k/uL (0-1.0); Monocytes % (A) 5 %; Neutrophils # (A) 3.9 k/uL (1.3-7.7); Neutrophils % (A) 75 %; Platelet Count 118 k/uL (150-450); RBC 3.32 m/uL (3.80-5.40); RDW 13.1 % (11.5-15.5); WBC 5.1 k/uL (3.8-10.6)
[2020-08-06] MEDS: DIVALPROEX SPRINKLE 125 MG CAP.SPRINK PO SCH ×2 (08:27→20:17)
[2020-08-06] MEDS: PANTOPRAZOLE 40 MG/10 ML VIAL IVP SCH (08:27)
[2020-08-06] MEDS: AMIODARONE 200 MG TAB PO SCH (08:27)
[2020-08-06] MEDS: levETIRAcetam 500 MG TAB PO SCH ×2 (08:27→20:17)
[2020-08-06] MEDS: ALVIMOPAN 12 MG CAPSULE PO SCH ×2 (08:27→20:17)
[2020-08-06] MEDS: HEPARIN SODIUM,PORCINE 5,000 UNIT/ML 1 ML VIAL SQ SCH ×2 (08:27→16:50)
[2020-08-06] MEDS: FAMOTIDINE 20 MG/2 ML VIAL IV SCH ×2 (08:27→20:17)
[2020-08-06] MEDS: BENZTROPINE MESYLATE 0.5 MG TAB PO SCH ×2 (08:27→20:17)
[2020-08-06] MEDS: IPRATROPIUM-ALBUTEROL 3 ML NEB INHALATION SCH ×4 (09:01→20:17)
[2020-08-06] MEDS: LORazepam 0.5 MG TAB PO SCH ×2 (10:55→16:50)
--- NOTE | 2020-08-06 11:07 | P.PN ---
Subjective Progress Note Date: 08/06/20 CHIEF COMPLAINT: Status post colostomy reversal HISTORY OF PRESENT ILLNESS: Patient is sitting up in bed She is nonverbal. Apparently she had some tremors. She's been evaluated by neurology. They are r ecommending psychiatric evaluation to reassess her psych medications. She is currently tolerating a clear liquid diet. Denies any nausea or vomiting. No bowel function yet per nursing staff. Patient is afebrile. WBC 5.1 PHYSICAL EXAM: VITAL SIGNS: Reviewed. GENERAL: Well-developed in no acute distress. HEENT: No sclera icterus. Extraocular movements grossly intact. Moist buccal mucosa. Head is atraumatic, normocephalic. ABDOMEN: Soft. Nondistended. Incision clean dry and intact NEUROLOGIC: nonverbal ASSESSMENT: 1. History of previous colostomy for fecal obstruction now status post reversal of colostomy 2. UTI PLAN: -Advance diet to full liquid diet -Antibiotics per medicine for UTI -consults psychiatry per neurology recommendations -Continue GI and DVT prophylaxis Physician Cell Inspector note has been reviewed by physician. Signing provider agrees with the documented findings, assessment, and plan of care. Objective - Vital Signs Vital signs: Vital Signs Temp 99.5 F 08/06/20 08:36 Pulse 74 08/06/20 09:08 Resp 18 08/06/20 08:36 BP 110/67 08/06/20 08:36 Pulse Ox 94 L 08/06/20 08:36 Intake & Output 08/05/20 08/06/20 08/06/20 18:59 06:59 18:59 Intake Total 100 100 Output Total 1000 Balance 100 -1000 100 Intake: Oral 100 100 Output: Urine 1000 Other: Voiding Method Indwelling Catheter Indwelling Catheter Indwelling Catheter # Voids 3 - Labs CBC & Chem 7: 08/06/20 06:30 08/03/20 06:17 Labs: Abnormal Lab Results - Last 24 Hours (Table) 08/06/20 Range/Units 06:30 RBC 3.32 L (3.80-5.40) m/uL Hgb 10.9 L (11.4-16.0) gm/dL MCV 103.0 H (80.0-100.0) fL Plt Count 118 L (150-450) k/uL Lymphocytes # 0.8 L (1.0-4.8) k/uL Microbiology - Last 24 Hours (Table) 08/04/20 13:58 Blood Culture - Preliminary Blood No Growth after 24 hours 08/04/20 01:00 Urine Culture - Final Urine,Catheterized
[2020-08-06] MEDS: HYDROmorphone 0.5 MG/0.5 ML SYRINGE IVP PRN (12:01)
--- NOTE | 2020-08-06 13:20 | CDI ---
Documentation Clarification Form Date: 08/06/2020 01:06:55 PM From: Karyn NunezFryeNELLY pan, CCDS Admit Date: 08/02/2020 08:30:00 AM Patient Name: Ramandeep Whitt Visit Number: [id number] Discharge Date: ATTENTION: The Clinical Documentation Specialists (CDI) and [facility] Coding Staff appreciate your assistance in clarifying documentation. Please respond to the clarification below the line at the bottom and electronically sign. The CDI & [facility] Coding staff will review the response and follow-up if needed. Please note: Queries are made part of the Legal Health Record. If you have any questions, please contact the author of this message via ITS. Dr. Trena Cruz: A diagnosis of UTI has been documented in the 08/04 & 08/05 Medical Management Progress Notes. Per the 08/05 Surgical Progress Note, patient's voiding method is indwelling catheter. The documentation is unclear if the patient arrived with a Chronic Indwelling Catheter. History/Risk Factors: Patient resides in an AFC home, Aspiration Pneumonia, COPD, Hyperlipidemia, Seizure Disorder, Mental Retardation, Incontinent at times. Clinical Indicators: Patient presented for an elective reversal of colostomy, previous surgery for diverticulitis. VS 08/02: BP 201/131^. VS 08/03: T 100.8^, PO 97 2Lnc VS 08/04: P 112^, R 20, BP 157/96, PO 94 2Lnc LAB 08/04: WBC 6.3, Pl Ct 99* UA 08/04: Cloudy, Moderate Blood, Large Esterase, RBC 62^, WBC 21^. 08/04 Urine Cx: negative. 08/04 Blood Cx: negative Treatment: 08/02: IV Cefazolin, IV Decadron, IV Dilaudid, IV Zofran, IV Tylenol, O2 2Lnc. 08/03: IV Dilaudid, IV Protonix, INH Albuterol, IV Zosyn. In your professional opinion, can you please clarify the etiology of the UTI, if known? UTI related to Torres catheter UTI not related to Torres catheter Other condition, please specify Unable to determine (Last Revision: January 2018) UTI related to Torres catheter MTDD
--- NOTE | 2020-08-06 13:21 | P.CN ---
Psychiatric Consult - . Consult date: 08/06/20 Consult:: IDENTIFYING DATA: This patient is a 60-year-old female with a history of schizophrenia and mental retardation admitted for colostomy reversal HISTORY OF PRESENT ILLNESS: The patient presented to the hospital on 08/02/2020 for reversal of colostomy. Patient is unable to provide any significant history as she is nonverbal. She has been consulted for adjustment in psychiatric medications as patient has been experiencing significant tremors. Neurology has evaluated the patient and noted that the patient has significant tremor of the upper and lower extremity with rigidity and tremors at rest. Patient is currently prescribed Haldol, Depakote and Cogentin. Discussion with the patient's nurse reported that the patient does have occasional periods of verbal agitation and yelling but that overall she remains seated comfortably in no acute distress. PAST PSYCHIATRIC HISTORY: Patient has a history of schizophrenia and develop mental delay. She was evaluated by Dr. Leslie on 02/14/2020. At that time her Haldol was decreased from 5 mg twice a day to 5 mg at bedtime. She is also prescribed currently Depakote sprinkle at 375 mg by mouth twice a day and Cogentin 0.5 mg by mouth twice a day. PAST MEDICAL HISTORY: COPD, hyperlipidemia, pneumonia, seizure disorder, sleep apnea, syncope, mental retardation. ALLERGIES: as per EMR. CHEMICAL DEPENDENCY HISTORY: Unable to assess this patient is nonverbal. FAMILY PSYCHIATRIC/SUBSTANCE USE HISTORY: Unable to assess as patient is nonverbal. SOCIAL HISTORY: Unable to assess as patient is nonverbal. MENTAL STATUS EXAM: General Appearance: Patient appears to be older than stated age. She is currently minimally responsive and resting upright in her chair and appears to be in no acute distress. She does appear quite somnolent. Behavior: Tremors noted in her upper extremities. Eye contact is minimal. Speech: Patient is nonverbal Mood/Affect: Unable to assess as patient is nonverbal. Suicidality/Homicidality: Unable to assess as patient is nonverbal. Perceptions: Patient denies any visual hallucinations and denies any auditory hallucinations Though content/process: Unable to assess as patient is nonverbal. Memory and concentration: Unable to assess as patient is nonverbal. Currently the patient is not following any commands. Judgment and insight: very poor IMPRESSIONS: Schizophrenia unspecified Abnormal movements - resting tremor possibly secondary to medications. PLAN: -At this time patient DOES NOT meet criteria for inpatient psychiatric admission. -Delirium precautions recommended with patient including - avoiding use of narcotics and HISTORICAL RECORDS ADMINISTRATOR sedatives, limit anticholinergic medications when possible, frequent re-orientation, minimize use of restraints, open window shades during the day and close them at night -Would recommend the following medication changes/additions: We will decrease her Haldol to 2 mg by mouth twice a day to address parkinsonian side effects from antipsychotic medication. Recommend limiting the use or discontinuation of Reglan as that may also contribute to parkinsonian symptoms. Continue Cogentin 0.5 mg by mouth twice a day Continue Depakote 375 mg by mouth twice a day -Psychiatry will sign off at this point, please contact with any questions. 08/06/20 13:11
--- NOTE | 2020-08-06 13:33 | CDI ---
Documentation Clarification Form Date: 08/06/2020 01:21:33 PM From: Karyn Frye CCS, CCDS Admit Date: 08/02/2020 08:30:00 AM Patient Name: Ramandeep Whitt Visit Number: [id number] Discharge Date: ATTENTION: The Clinical Documentation Specialists (CDI) and [facility] Coding Staff appreciate your assistance in clarifying documentation. Please respond to the clarification below the line at the bottom and electronically sign. The CDI & [facility] Coding staff will review the response and follow-up if needed. Please note: Queries are made part of the Legal Health Record. If you have any questions, please contact the author of this message via ITS. Dr. Charly Chow: New mild atelectasis in left lung is documented in the 08/02 & 08/03 CXR and also in subsequent Progress Notes on 08/03, 08/04 & 08/05. Patients Admitting Diagnosis: History of bowel obstruction with Colostomy, Admitted for reversal of Colostomy. Post-Operative Diagnosis: Same. Procedure performed: Reversal of Colostomy, procedure note pending. History/Risk Factors: COPD, Hyyperlipidemia, Pneumonia, Seizure disorder, Sleep Apnea, Mental Retardation, Mild Sensorineural hearing loss, Dysphagia with aspiration, Chronic constipation, Left Arm Contractures, Incontinent at times. Clinical Indicators: Per the 08/03 through 08/05 Medical Management Progress Notes: Breath sounds diminished in the bases. Treatment: 08/02: O2 3Lnc, INH Albuterol, IV Cefazolin, IV Decadron, IV dilaudid, IV Zofran, Heparin sq, IV Tylenol, IV Kcl 08/03: O2 2Lnc, INH Albuterol, IV Dilaudid, IV Zosyn 08/04: O2 2Lnc - Room Air. In order to accurately reflect this patients severity of illness, please clarify if the Atelectasis: Is a complication of surgical procedure Is an expected outcome of the surgical procedure Is related to co-morbid condition(s), please specify: Other please specify: Unable to determine (Last Revision: November 2019) Is and expected outcome of surgical procedure MTDD
[2020-08-06] MEDS ORDERED: KETOROLAC 15 MG/ML 1 ML VIAL IVP PRN (15:04)
--- NOTE | 2020-08-06 16:35 | P.PN ---
Subjective Patient is status post colostomy reversal in the constipation and colonic obstruction and fecal obstruction. This is being managed by general surgery. I'm unable to get any kind of history from the patient because of her baseline clinical condition. Patient is presently on clear liquid diet. Review of systems: Unable to often due to her clinical condition All inpatient medications were reviewed and appropriate changes in these medications as dictated in the interval history and assessment and plan. Objective - Vital Signs Vital signs: Vital Signs Temp 98.1 F 08/06/20 15:00 Pulse 61 08/06/20 15:00 Resp 20 08/06/20 15:38 BP 110/63 08/06/20 15:00 Pulse Ox 97 08/06/20 15:00 Intake & Output 08/05/20 08/06/20 08/06/20 18:59 06:59 18:59 Intake Total 100 200 Output Total 1000 400 Balance 100 -1000 -200 Intake: Oral 100 200 Output: Urine 1000 400 Other: Voiding Method Indwelling Catheter Indwelling Catheter Indwelling Catheter # Voids 3 3 - Exam PHYSICAL EXAMINATION: GENERAL: The patient is alert and does his orientation, not in any acute distress. Well developed, well nourished. HEENT: Pupils are round and equally reacting to light. EOMI. No scleral icterus. No conjunctival pallor. Normocephalic, atraumatic. No pharyngeal erythema. No thyromegaly. CARDIOVASCULAR: S1 and S2 present. No murmurs, rubs, or gallops. PULMONARY: and because of her baseline clinically condition ABDOMEN: Soft, nontender, nondistended, normoactive bowel sounds. No palpable organomegaly. MUSCULOSKELETAL: No joint swelling or deformity. EXTREMITIES: No cyanosis, clubbing, or pedal edema. NEUROLOGICAL: Unable to assess SKIN: No rashes. - Labs CBC & Chem 7: 08/06/20 06:30 08/03/20 06:17 Labs: Abnormal Lab Results - Last 24 Hours (Table) 08/06/20 Range/Units 06:30 RBC 3.32 L (3.80-5.40) m/uL Hgb 10.9 L (11.4-16.0) gm/dL MCV 103.0 H (80.0-100.0) fL Plt Count 118 L (150-450) k/uL Lymphocytes # 0.8 L (1.0-4.8) k/uL Microbiology - Last 24 Hours (Table) 08/04/20 13:58 Blood Culture - Preliminary Blood No Growth after 48 hours Assessment and Plan Plan: -Fecal stasis,: Because obstruction secondary to fecal stasis: Management as per primary service -COPD without any acute acceleration -Hyperlipidemia -Seizure disorder Patient had tremors because of which psychiatric was consulted and patient was started on Cogentin and Haldol was held which was believed to be responsible for her tremor neurology and psychiatric valid the patient -Mental retardation
--- NOTE | 2020-08-06 16:53 | P.PN ---
Subjective Progress Note Date: 08/06/20 Patient was seen for a follow-up. Patient is sleeping at this time. No tremors observed. Objective - Vital Signs Vital signs: Vital Signs Temp 98.1 F 08/06/20 15:00 Pulse 61 08/06/20 15:00 Resp 20 08/06/20 15:38 BP 110/63 08/06/20 15:00 Pulse Ox 97 08/06/20 15:00 Intake & Output 08/05/20 08/06/20 08/06/20 18:59 06:59 18:59 Intake Total 100 200 Output Total 1000 400 Balance 100 -1000 -200 Intake: Oral 100 200 Output: Urine 1000 400 Other: Voiding Method Indwelling Catheter Indwelling Catheter Indwelling Catheter # Voids 3 3 - Exam Patient asleep, no tremors observed. - Labs CBC & Chem 7: 08/06/20 06:30 08/03/20 06:17 Labs: Abnormal Lab Results - Last 24 Hours (Table) 08/06/20 Range/Units 06:30 RBC 3.32 L (3.80-5.40) m/uL Hgb 10.9 L (11.4-16.0) gm/dL MCV 103.0 H (80.0-100.0) fL Plt Count 118 L (150-450) k/uL Lymphocytes # 0.8 L (1.0-4.8) k/uL Microbiology - Last 24 Hours (Table) 08/04/20 13:58 Blood Culture - Preliminary Blood No Growth after 48 hours Assessment and Plan Assessment: * Tremor of upper and lower extremity with significant rigidity and tremors at rest. Symptoms are Parkinsonian, possibly related to use of Haldol. Depakote can also be associated with coarse tremors. Patient is on Cogentin, but probably not enough to counteract the Parkinsonian side effects. * History of mental retardation * History of colostomy for impacted stools, now admitted for reversal of colostomy. Plan: * Suggest psychiatry consultation to adjust psych medications. Consider increasing dose of Cogentin versus gradually tapering off Depakote and/or Haldol. * Depakote level is 50.1, which is therapeutic and Keppra levels still pending. TSH normal. * Patient was asleep today. No tremors observed at this time. We will follow.
[2020-08-06] MEDS: LORazepam 1 MG TAB PO SCH (20:17)
[2020-08-07] MEDS: HEPARIN SODIUM,PORCINE 5,000 UNIT/ML 1 ML VIAL SQ SCH ×4 (00:53→20:44)
[2020-08-07] MEDS: PIPERACILLIN-TAZOBACTAM 3.375 GM in SODIUM CHLORIDE 0.9% 100 ML IVPB SCH ×3 (05:28→20:49)
[2020-08-07] MEDS: LACTATED RINGERS 1,000 ML IV SCH (05:28)
[2020-08-07] MEDS: ALVIMOPAN 12 MG CAPSULE PO SCH ×2 (08:00→20:34)
[2020-08-07] MEDS: DIVALPROEX SPRINKLE 125 MG CAP.SPRINK PO SCH ×2 (08:00→20:44)
[2020-08-07] MEDS: AMIODARONE 200 MG TAB PO SCH (08:01)
[2020-08-07] MEDS: FAMOTIDINE 20 MG/2 ML VIAL IV SCH ×2 (08:01→20:44)
[2020-08-07] MEDS: levETIRAcetam 500 MG TAB PO SCH ×2 (08:01→20:49)
[2020-08-07] MEDS: BENZTROPINE MESYLATE 0.5 MG TAB PO SCH ×2 (08:01→20:49)
[2020-08-07] MEDS: IPRATROPIUM-ALBUTEROL 3 ML NEB INHALATION SCH ×4 (08:09→19:55)
--- NOTE | 2020-08-07 08:32 | P.PN ---
Subjective Patient is status post colostomy reversal in the constipation and colonic obstruction and fecal obstruction. This is being managed by general surgery. I'm unable to get any kind of history from the patient because of her baseline clinical condition. Patient is presently on clear liquid diet. 08/07/2020 Patient barely has any bowel sounds abdomen is mildly distended. Patient extremity side effects from antipsychotics improved after changing the dosing of Haldol. Review of systems: Unable to often due to her clinical condition All inpatient medications were reviewed and appropriate changes in these medications as dictated in the interval history and assessment and plan. Objective - Vital Signs Vital signs: Vital Signs Temp 98.0 F 08/07/20 07:00 Pulse 80 08/07/20 08:16 Resp 18 08/07/20 07:00 BP 122/68 08/07/20 07:00 Pulse Ox 94 L 08/07/20 07:00 Intake & Output 08/06/20 08/07/20 08/07/20 18:59 06:59 18:59 Intake Total 200 Output Total 400 250 Balance -200 -250 Intake: Oral 200 Output: Urine 400 250 Other: Voiding Method Indwelling Catheter Indwelling Catheter # Voids 3 - Exam PHYSICAL EXAMINATION: GENERAL: The patient is alert and does his orientation, not in any acute distress. Well developed, well nourished. HEENT: Pupils are round and equally reacting to light. EOMI. No scleral icterus. No conjunctival pallor. Normocephalic, atraumatic. No pharyngeal erythema. No thyromegaly. CARDIOVASCULAR: S1 and S2 present. No murmurs, rubs, or gallops. PULMONARY: and because of her baseline clinically condition ABDOMEN: Soft, nontender, nondistended, normoactive bowel sounds. No palpable organomegaly. MUSCULOSKELETAL: No joint swelling or deformity. EXTREMITIES: No cyanosis, clubbing, or pedal edema. NEUROLOGICAL: Unable to assess SKIN: No rashes. - Labs CBC & Chem 7: 08/06/20 06:30 08/03/20 06:17 Labs: Microbiology - Last 24 Hours (Table) 08/04/20 13:58 Blood Culture - Preliminary Blood No Growth after 48 hours Assessment and Plan Plan: -Fecal stasis,: Because obstruction secondary to fecal stasis: Management as per primary service -COPD without any acute exacerbation -Hyperlipidemia -Seizure disorder Patient had tremors because of which psychiatric was consulted and patient was started on Cogentin and Haldol was held which was believed to be responsible for her tremor neurology and psychiatric valuated the patient did tremors improved -Mental retardation
[2020-08-07] MEDS: D5-0.45% NACL WITH KCL 20MEQ/L 1,000 ML IV SCH (08:54)
[2020-08-07 09:22] LABS: African American GFR (CKD) 108.4 (60.0-200.0); Anion Gap 8.9 mmol/L (4.00-12.00); Calcium 8.3 mg/dL (8.7-10.3); Carbon Dioxide 25.1 mmol/L (21.6-31.8); Non-African American GFR(CKD) 93.5 (60.0-200.0); Potassium 3.9 mmol/L (3.5-5.5)
--- NOTE | 2020-08-07 10:45 | P.PN ---
Subjective Progress Note Date: 08/07/20 CHIEF COMPLAINT: Status post colostomy reversal HISTORY OF PRESENT ILLNESS: Patient is sitting up at bedside chair. She is nonverbal. Her abdomen is more distended today. No vomiting. She has not had a bowel movement yet. Patient evaluated by neurology and psychiatry For her tremors. Psychiatry has decreased Haldol to 2 mg twice a day to address the Parkinsonian side effects from her antipsychotic medications. Psychiatrist also recommendingdiscontinuing or limiting the use of Reglan. PHYSICAL EXAM: VITAL SIGNS: Reviewed. GENERAL: Well-developed in no acute distress. HEENT: No sclera icterus. Extraocular movements grossly intact. Moist buccal mucosa. Head is atraumatic, normocephalic. ABDOMEN: Soft. Mildly distended likely due to patient tensing her abdominal muscles. Incision clean dry and intact NEUROLOGIC: nonverbal. No tremor noted ASSESSMENT: 1. History of previous colostomy for fecal obstruction now status post reversal of colostomy 2. UTI PLAN: -Patient currently in by mouth until evaluated by the surgeon -discontinue Reglan -Antibiotics per medicine for UTI -Continue GI and DVT prophylaxis Physician Firearms Specialist note has been reviewed by physician. Signing provider agrees with the documented findings, assessment, and plan of care. Objective - Vital Signs Vital signs: Vital Signs Temp 98.0 F 08/07/20 07:00 Pulse 80 08/07/20 08:16 Resp 18 08/07/20 07:00 BP 122/68 08/07/20 07:00 Pulse Ox 94 L 08/07/20 07:00 Intake & Output 08/06/20 08/07/20 08/07/20 18:59 06:59 18:59 Intake Total 200 Output Total 400 250 Balance -200 -250 Intake: Oral 200 Output: Urine 400 250 Other: Voiding Method Indwelling Catheter Indwelling Catheter # Voids 3 - Labs CBC & Chem 7: 08/06/20 06:30 08/07/20 06:38 Labs: Abnormal Lab Results - Last 24 Hours (Table) 08/07/20 Range/Units 06:38 BUN 7.0 L (9.0-27.0) mg/dL BUN/Creatinine Ratio 10.00 L (12.00-20.00) Ratio Calcium 8.3 L (8.7-10.3) mg/dL Microbiology - Last 24 Hours (Table) 08/04/20 13:58 Blood Culture - Preliminary Blood No Growth after 48 hours
[2020-08-07] MEDS: LORazepam 0.5 MG TAB PO SCH ×2 (12:21→16:02)
--- NOTE | 2020-08-07 17:04 | P.PN ---
Subjective Progress Note Date: 08/07/20 Patient was seen for a follow-up. Patient is awake, with constant mouth tremor, some unintelligible vocalization. No seizures. Objective - Vital Signs Vital signs: Vital Signs Temp 98.3 F 08/07/20 14:41 Pulse 76 08/07/20 15:29 Resp 16 08/07/20 14:41 BP 95/57 08/07/20 14:41 Pulse Ox 96 08/07/20 14:41 Intake & Output 08/06/20 08/07/20 08/07/20 18:59 06:59 18:59 Intake Total 200 100 Output Total 400 250 Balance -200 -250 100 Intake: Oral 200 100 Output: Urine 400 250 Other: Voiding Method Indwelling Catheter Indwelling Catheter Indwelling Catheter # Voids 3 3 - Exam Patient is awake, appears slightly emotional. Patient have continuous mouth movement, with chin tremor. Also has significant 3 Hz tremor of the upper extremity. Rest of the examination unchanged. - Labs CBC & Chem 7: 08/06/20 06:30 08/07/20 06:38 Labs: Abnormal Lab Results - Last 24 Hours (Table) 08/07/20 Range/Units 06:38 BUN 7.0 L (9.0-27.0) mg/dL BUN/Creatinine Ratio 10.00 L (12.00-20.00) Ratio Calcium 8.3 L (8.7-10.3) mg/dL Microbiology - Last 24 Hours (Table) 08/04/20 13:58 Blood Culture - Preliminary Blood No Growth after 72 hours Assessment and Plan Assessment: * Tremor of the chin, upper and lower extremity with significant rigidity and tremors at rest. Symptoms are Parkinsonian, possibly related to use of Haldol. Depakote can also be associated with coarse tremors. Patient is on Cogentin, but probably not enough to counteract the Parkinsonian side effects. * History of mental retardation * History of previous colostomy for impacted stools, now status post reversal of colostomy. * UTI. Plan: * Patient been seen by psychiatry. Haldol decreased to 2 mg daily, and Reglan stopped. Continue Cogentin 0.5 mg twice a day. Continue Depakote 375 mg twice a day. Appreciate psychiatric input. * Depakote level is 50.1, which is therapeutic and Keppra levels 20.2 (3-60), also therapeutic. TSH normal. Continue same dose of seizure medications.
[2020-08-07] MEDS: LORazepam 1 MG TAB PO SCH (20:49)
[2020-08-07] MEDS: HYDROmorphone 0.5 MG/0.5 ML SYRINGE IVP PRN (22:54)
[2020-08-08] MEDS: D5-0.45% NACL WITH KCL 20MEQ/L 1,000 ML IV SCH ×2 (03:10→22:11)
[2020-08-08] MEDS: PIPERACILLIN-TAZOBACTAM 3.375 GM in SODIUM CHLORIDE 0.9% 100 ML IVPB SCH ×3 (06:43→22:11)
[2020-08-08] MEDS: LACTATED RINGERS 1,000 ML IV SCH (06:44)
[2020-08-08] MEDS: HEPARIN SODIUM,PORCINE 5,000 UNIT/ML 1 ML VIAL SQ SCH ×3 (08:28→22:09)
[2020-08-08] MEDS: DIVALPROEX SPRINKLE 125 MG CAP.SPRINK PO SCH ×2 (08:29→22:10)
[2020-08-08] MEDS: AMIODARONE 200 MG TAB PO SCH (08:30)
[2020-08-08] MEDS: BENZTROPINE MESYLATE 0.5 MG TAB PO SCH ×2 (08:30→22:10)
[2020-08-08] MEDS: ALVIMOPAN 12 MG CAPSULE PO SCH (08:31)
[2020-08-08] MEDS: FAMOTIDINE 20 MG/2 ML VIAL IV SCH ×2 (08:32→22:09)
[2020-08-08] MEDS: levETIRAcetam 500 MG TAB PO SCH ×2 (09:12→22:09)
[2020-08-08 09:25] LABS: Basophils % (A) 1 %; Eosinophils # (A) 0.2 k/uL (0-0.7); Eosinophils % (A) 5 %; HCT 39.1 % (34.0-46.0); HGB 11.9 gm/dL (11.4-16.0); Hypochromasia Moderate; Lymphocytes # (A) 0.7 k/uL (1.0-4.8); Lymphocytes % (A) 14 %; MCH 32.6 pg (25.0-35.0); MCHC 30.4 g/dL (31.0-37.0); MCV 107.4 fL (80.0-100.0); Macrocytosis Moderate; Mean Platelet Volume 11.2; Monocytes # (A) 0.3 k/uL (0-1.0); Monocytes % (A) 6 %; Neutrophils # (A) 3.7 k/uL (1.3-7.7); Neutrophils % (A) 73 %; Platelet Count 168 k/uL (150-450); RBC 3.64 m/uL (3.80-5.40); RDW 13.5 % (11.5-15.5); WBC 5.1 k/uL (3.8-10.6)
[2020-08-08] MEDS: IPRATROPIUM-ALBUTEROL 3 ML NEB INHALATION SCH ×4 (09:25→19:13)
[2020-08-08] MEDS: LORazepam 0.5 MG TAB PO SCH ×2 (12:09→17:08)
--- NOTE | 2020-08-08 12:14 | P.PN ---
Subjective Patient is status post colostomy reversal in the constipation and colonic obstruction and fecal obstruction. This is being managed by general surgery. I'm unable to get any kind of history from the patient because of her baseline clinical condition. Patient is presently on clear liquid diet. 08/07/2020 Patient barely has any bowel sounds abdomen is mildly distended. Patient extremity side effects from antipsychotics improved after changing the dosing of Haldol. 08/08/2020 Patient is on D5 half-normal saline because of which I'll obtain a basic BMP tomorrow make sure patient is not hyponatremic Review of systems: Unable to often due to her clinical condition All inpatient medications were reviewed and appropriate changes in these m edications as dictated in the interval history and assessment and plan. Objective - Vital Signs Vital signs: Vital Signs Temp 98.4 F 08/08/20 08:29 Pulse 72 08/08/20 09:39 Resp 17 08/08/20 08:29 BP 112/64 08/08/20 08:29 Pulse Ox 98 08/08/20 08:29 Intake & Output 08/07/20 08/08/20 08/08/20 18:59 06:59 18:59 Intake Total 100 580 Output Total 1800 Balance 100 580 -1800 Intake: Intake, IV Titration 580 Amount D5-0.45% NaCl with KCl 480 20Meq/l 1,000 ml @ 60 mls /hr IV .[id number] [facility] Rx#: [id number] Piperacillin-Tazobactam 3 100 .375 gm In Sodium Chloride 0.9% 100 ml @ 25 mls/hr IVPB Q8H [facility] Rx#: [id number] Oral 100 0 Output: Urine 1800 Other: Voiding Method Indwelling Catheter Indwelling Catheter Indwelling Catheter # Voids 3 # Bowel Movements 1 - Exam PHYSICAL EXAMINATION: GENERAL: The patient is alert and does his orientation, not in any acute distress. Well developed, well nourished. HEENT: Pupils are round and equally reacting to light. EOMI. No scleral icterus. No conjunctival pallor. Normocephalic, atraumatic. No pharyngeal erythema. No thyromegaly. CARDIOVASCULAR: S1 and S2 present. No murmurs, rubs, or gallops. PULMONARY: and because of her baseline clinically condition ABDOMEN: Soft, nontender, nondistended, normoactive bowel sounds. No palpable organomegaly. MUSCULOSKELETAL: No joint swelling or deformity. EXTREMITIES: No cyanosis, clubbing, or pedal edema. NEUROLOGICAL: Unable to assess SKIN: No rashes. - Labs CBC & Chem 7: 08/08/20 06:58 08/07/20 06:38 Labs: Abnormal Lab Results - Last 24 Hours (Table) 08/08/20 Range/Units 06:58 RBC 3.64 L (3.80-5.40) m/uL MCV 107.4 H (80.0-100.0) fL MCHC 30.4 L (31.0-37.0) g/dL Lymphocytes # 0.7 L (1.0-4.8) k/uL Microbiology - Last 24 Hours (Table) 08/04/20 13:58 Blood Culture - Preliminary Blood No Growth after 72 hours Assessment and Plan Plan: -Fecal stasis,: Because obstruction secondary to fecal stasis: Management as per primary service -COPD without any acute exacerbation -Hyperlipidemia -Seizure disorder Patient had tremors because of which psychiatric was consulted and patient was started on Cogentin and Haldol was held which was believed to be responsible for her tremor neurology and psychiatric valuated the patient did tremors improved -Mental retardation
--- NOTE | 2020-08-08 14:59 | P.PN ---
Subjective Progress Note Date: 08/08/20 CHIEF COMPLAINT: Status post colostomy reversal HISTORY OF PRESENT ILLNESS: Patient is lying in bed sleeping. She is nonverbal. Nursing reported patient did have some bright red blood per rectum. She is having bowel movements. Her subcu heparin was initially held. Discussed with Dr. madden. Dr. Shepard felt this is likely old blood. Patient is tolerating diet. Afebrile WBC 5.1 PHYSICAL EXAM: VITAL SIGNS: Reviewed. GENERAL: Well-developed in no acute distress. HEENT: No sclera icterus. Extraocular movements grossly intact. Moist buccal mucosa. Head is atraumatic, normocephalic. ABDOMEN: Soft. Mildly distended likely due to patient tensing her abdominal muscles. Incision clean dry and intact NEUROLOGIC: nonverbal. No tremor noted ASSESSMENT: 1. History of previous colostomy for fecal obstruction now status post reversal of colostomy 2. UTI PLAN: -Continue full liquid diet -discontinue Reglan -Antibiotics per medicine for UTI -Continue GI and DVT prophylaxis Physician Plant Etiologist note has been reviewed by physician. Signing provider agrees with the documented findings, assessment, and plan of care. Objective - Vital Signs Vital signs: Vital Signs Temp 98.4 F 08/08/20 14:25 Pulse 66 08/08/20 14:25 Resp 17 08/08/20 14:25 BP 100/68 08/08/20 14:25 Pulse Ox 96 08/08/20 14:25 Intake & Output 08/07/20 08/08/20 08/08/20 18:59 06:59 18:59 Intake Total 100 580 Output Total 2325 Balance 100 580 -2325 Weight 56.245 kg Intake: Intake, IV Titration 580 Amount D5-0.45% NaCl with KCl 480 20Meq/l 1,000 ml @ 60 mls /hr IV .[id number] [facility] Rx#: [id number] Piperacillin-Tazobactam 3 100 .375 gm In Sodium Chloride 0.9% 100 ml @ 25 mls/hr IVPB Q8H [facility] Rx#: [id number] Oral 100 0 Output: Urine 2325 Other: Voiding Method Indwelling Catheter Indwelling Catheter Indwelling Catheter # Voids 3 # Bowel Movements 1 - Labs CBC & Chem 7: 08/08/20 06:58 08/07/20 06:38 Labs: Abnormal Lab Results - Last 24 Hours (Table) 08/08/20 Range/Units 06:58 RBC 3.64 L (3.80-5.40) m/uL MCV 107.4 H (80.0-100.0) fL MCHC 30.4 L (31.0-37.0) g/dL Lymphocytes # 0.7 L (1.0-4.8) k/uL Microbiology - Last 24 Hours (Table) 08/04/20 13:58 Blood Culture - Preliminary Blood No Growth after 72 hours
--- NOTE | 2020-08-08 17:15 | P.PN ---
Subjective Progress Note Date: 08/08/20 Patient was seen for a follow-up. Patient's caregiver/outsole caser Agueda from long-term facility was present. She knows patient for last 1 month. Patient has history of mental retardation, developmental delays. She has constant mouth movements while awake. She usually yells or moans all the time. Sometimes may utter some words but difficult to make out. She used to walk previously, but since her colostomy when she was in bed for so long, her mobility has decreased. Now she can walk but someone has to hold on to her. Patient is awake, with constant mouth tremor, some unintelligible vocalization. No seizures. Objective - Vital Signs Vital signs: Vital Signs Temp 98.4 F 08/08/20 14:25 Pulse 72 08/08/20 15:14 Resp 17 08/08/20 14:25 BP 100/68 08/08/20 14:25 Pulse Ox 96 08/08/20 14:25 Intake & Output 08/07/20 08/08/20 08/08/20 18:59 06:59 18:59 Intake Total 100 580 Output Total 2325 Balance 100 580 -2325 Weight 56.245 kg Intake: Intake, IV Titration 580 Amount D5-0.45% NaCl with KCl 480 20Meq/l 1,000 ml @ 60 mls /hr IV .[id number] [facility] Rx#: [id number] Piperacillin-Tazobactam 3 100 .375 gm In Sodium Chloride 0.9% 100 ml @ 25 mls/hr IVPB Q8H [facility] Rx#: [id number] Oral 100 0 Output: Urine 2325 Other: Voiding Method Indwelling Catheter Indwelling Catheter Indwelling Catheter # Voids 3 # Bowel Movements 1 - Exam Patient is awake, appears slightly emotional. Appears very anxious. Patient have continuous mouth movement, with chin tremor. Her hand tremors appears to be slightly better. - Labs CBC & Chem 7: 08/08/20 06:58 08/07/20 06:38 Labs: Abnormal Lab Results - Last 24 Hours (Table) 08/08/20 Range/Units 06:58 RBC 3.64 L (3.80-5.40) m/uL MCV 107.4 H (80.0-100.0) fL MCHC 30.4 L (31.0-37.0) g/dL Lymphocytes # 0.7 L (1.0-4.8) k/uL Microbiology - Last 24 Hours (Table) 08/04/20 13:58 Blood Culture - Preliminary Blood No Growth after 96 hours Assessment and Plan Assessment: * Tremor of the chin, upper and lower extremity with significant rigidity and tremors at rest. Symptoms are Parkinsonian, possibly related to use of Haldo l. Depakote can also be associated with coarse tremors. Patient is on Cogentin, but probably not enough to counteract the Parkinsonian side effects. * History of mental retardation * History of previous colostomy for impacted stools, now status post reversal of colostomy. * UTI. Plan: * Patient been seen by psychiatry. Haldol decreased to 2 mg daily, and Reglan stopped. Continue Cogentin 0.5 mg twice a day. Continue Depakote 375 mg twice a day. Appreciate psychiatric input. Her tremors appears to have improved as of today. * Depakote level is 50.1, which is therapeutic and Keppra levels 20.2 (3-60), also therapeutic. TSH normal. Continue same dose of seizure medications. * Neurology will sign off.
[2020-08-08] MEDS: LORazepam 1 MG TAB PO SCH (22:10)
[2020-08-09] MEDS: HYDROmorphone 0.5 MG/0.5 ML SYRINGE IVP PRN (00:35)
[2020-08-09] MEDS: LACTATED RINGERS 1,000 ML IV SCH (02:15)
[2020-08-09] MEDS: PIPERACILLIN-TAZOBACTAM 3.375 GM in SODIUM CHLORIDE 0.9% 100 ML IVPB SCH ×3 (06:15→14:27)
[2020-08-09 07:26] LABS: Basophils % (A) 1 %; Eosinophils # (A) 0.2 k/uL (0-0.7); Eosinophils % (A) 4 %; Lymphocytes # (A) 1.2 k/uL (1.0-4.8); Lymphocytes % (A) 34 %; MCH 32.1 pg (25.0-35.0); MCHC 31.5 g/dL (31.0-37.0); Macrocytosis Slight; Mean Platelet Volume 8.2; Monocytes # (A) 0.3 k/uL (0-1.0); Monocytes % (A) 7 %; Neutrophils # (A) 1.8 k/uL (1.3-7.7); Neutrophils % (A) 51 %; Platelet Count 144 k/uL (150-450); RBC 3.43 m/uL (3.80-5.40); RDW 13.5 % (11.5-15.5); WBC 3.6 k/uL (3.8-10.6)
[2020-08-09 07:36] LABS: MCV 101.9 fL (80.0-100.0)
[2020-08-09] MEDS: DIVALPROEX SPRINKLE 125 MG CAP.SPRINK PO SCH (08:05)
[2020-08-09] MEDS: AMIODARONE 200 MG TAB PO SCH (08:07)
[2020-08-09] MEDS: BENZTROPINE MESYLATE 0.5 MG TAB PO SCH (08:08)
[2020-08-09] MEDS: levETIRAcetam 500 MG TAB PO SCH (08:10)
[2020-08-09] MEDS: HEPARIN SODIUM,PORCINE 5,000 UNIT/ML 1 ML VIAL SQ SCH ×2 (08:15→14:28)
[2020-08-09] MEDS: FAMOTIDINE 20 MG/2 ML VIAL IV SCH (08:19)
[2020-08-09] MEDS: IPRATROPIUM-ALBUTEROL 3 ML NEB INHALATION SCH ×3 (09:03→15:33)
[2020-08-09 11:23] LABS: African American GFR (CKD) 121.1 (60.0-200.0); Anion Gap 3.8 mmol/L (4.00-12.00); Calcium 7.7 mg/dL (8.7-10.3); Carbon Dioxide 29.2 mmol/L (21.6-31.8); Non-African American GFR(CKD) 104.5 (60.0-200.0); Potassium 3.9 mmol/L (3.5-5.5)
--- NOTE | 2020-08-09 11:43 | P.PN ---
Subjective Progress Note Date: 08/09/20 CHIEF COMPLAINT: Status post colostomy reversal HISTORY OF PRESENT ILLNESS: Patient is sitting up at bedside chair. She is nonverbal. Patient has had no further blood in her stools. She is having bowel movements. Torres catheter will be discontinued today. She is tolerating full liquids. Patient afebrile. WBC 3.6 Hgb 11.0 Neurology has signed off PHYSICAL EXAM: VITAL SIGNS: Reviewed. GENERAL: Well-developed in no acute distress. HEENT: No sclera icterus. Extraocular movements grossly intact. Moist buccal mucosa. Head is atraumatic, normocephalic. ABDOMEN: Soft. nondistended nontender Incision clean dry and intact NEUROLOGIC: nonverbal. No tremor noted ASSESSMENT: 1. History of previous colostomy for fecal obstruction now status post reversal of colostomy 2. UTI PLAN: -advance diet to regular -Antibiotics per medicine for UTI -Continue GI and DVT prophylaxis Physician Woven Blind Loom Tender note has been reviewed by physician. Signing provider agrees with the documented findings, assessment, and plan of care. Objective - Vital Signs Vital signs: Vital Signs Temp 98.8 F 08/09/20 09:56 Pulse 102 H 08/09/20 09:56 Resp 20 08/09/20 09:56 BP 134/70 08/09/20 09:56 Pulse Ox 96 08/09/20 04:45 Intake & Output 08/08/20 08/09/20 08/09/20 18:59 06:59 18:59 Intake Total 225 180 Output Total 2325 925 670 Balance -2325 -700 -490 Weight 56.245 kg Intake: Intake, IV Titration 200 Amount D5-0.45% NaCl with KCl 200 20Meq/l 1,000 ml @ 60 mls /hr IV .[id number] [facility] Rx#: [id number] Oral 25 180 Output: Urine 2325 925 670 Uretheral (Torres) 400 Other: Voiding Method Indwelling Catheter Indwelling Catheter Incontinent Indwelling Catheter # Bowel Movements 1 2 - Labs CBC & Chem 7: 08/09/20 07:05 08/09/20 07:05 Labs: Abnormal Lab Results - Last 24 Hours (Table) 08/09/20 08/09/20 Range/Units 07:05 07:05 WBC 3.6 L (3.8-10.6) k/uL RBC 3.43 L (3.80-5.40) m/uL Hgb 11.0 L (11.4-16.0) gm/dL MCV 101.9 H D (80.0-100.0) fL Plt Count 144 L (150-450) k/uL Anion Gap 3.80 L (4.00-12.00) mmol/L BUN 5.0 L (9.0-27.0) mg/dL Creatinine 0.5 L (0.6-1.5) mg/dL BUN/Creatinine Ratio 10.00 L (12.00-20.00) Ratio Calcium 7.7 L (8.7-10.3) mg/dL Microbiology - Last 24 Hours (Table) 08/04/20 13:58 Blood Culture - Preliminary Blood No Growth after 96 hours
[2020-08-09] MEDS: LORazepam 0.5 MG TAB PO SCH ×2 (12:54→16:22)
--- NOTE | 2020-08-09 13:50 | P.DS ---
Providers Date of admission: 08/02/20 08:30 Expected date of discharge: 08/09/20 Attending physician: Charly Chow Consults: 08/02/20 11:58 Consult Physician Routine Consulting Provider: Trena Cruz Consult Reason/Comments: medical mangement Do you want consulting provider notified?: Yes 08/05/20 14:17 Consult Physician Routine Consulting Provider: Vito Lira Consult Reason/Comments: tremors Do you want consulting provider notified?: Already Contacted 08/06/20 11:06 Consult Physician Routine Consulting Provider: Benji Leslie Consult Reason/Comments: possible adjustment in psych medications Do you want consulting provider notified?: Yes Primary care physician: Stated None Hospital Course: Discharge diagnosis 1. History of previous colostomy for fecal obstruction now status post reversal of colostomy 2. UTI 3. Tremor Symptoms are Parkinsonian, possibly related to use of Haldol. 4. History of mental retardation Hospital course This is a 60-year-old female who has a previous colostomy for fecal obstruction She has noticed status post reversal of colostomy. Patient did tolerate advancement of diet. No nausea or vomiting. She is having bowel movements. Her pain is controlled. She is afebrile. She will return to her [facility] home. Patient also seen by neurology And psychiatry during this admission due to tremors. Her Haldol dose was adjusted. Patient is stable for discharge. Please refer to chart for any further details. Physician Emt/Paramedic note has been reviewed by physician. Signing provider agrees with the documented findings, assessment, and plan of care. Patient Condition at Discharge: Stable Plan - Discharge Summary Discharge Rx Participant: Yes New Discharge Prescriptions: New Ibuprofen [Motrin] 600 mg PO Q8HR PRN #30 tab PRN Reason: Pain Acetaminophen Tab [Tylenol Tab] 650 mg PO Q4H PRN #30 tablet PRN Reason: Pain No Action Ipratropium-Albuterol Nebulize [Duoneb 0.5 mg-3 mg/3 ml Soln] 3 ml INHALATION Q6HR PRN PRN Reason: Shortness Of Breath haloperidoL [Haloperidol] 5 mg PO HS Amiodarone [Cordarone] 200 mg PO DAILY Benztropine Mesylate [Cogentin] 0.5 mg PO BID polyethylene glycoL 3350 [Miralax] 17 gm PO HS levETIRAcetam [Keppra] 500 mg PO BID Sennosides/Docusate Sodium [Senna Plus 8.6-50 mg Tablet] 2 each PO HS Magnesium Hydroxide [Milk of Magnesia Concentrate] 30 mg PO DAILY Divalproex Sodium [Depakote] 375 mg PO BID LORazepam [Ativan] 0.5 mg PO BID LORazepam [Ativan] 1 mg PO HS Discharge Medication List Ipratropium-Albuterol Nebulize [Duoneb 0.5 mg-3 mg/3 ml Soln] 3 ml INHALATION Q6HR PRN 09/15/18 [History] Amiodarone [Cordarone] 200 mg PO DAILY 02/12/20 [History] haloperidoL [Haloperidol] 5 mg PO HS 02/12/20 [History] Benztropine Mesylate [Cogentin] 0.5 mg PO BID 07/19/20 [History] Divalproex Sodium [Depakote] 375 mg PO BID 07/19/20 [History] Magnesium Hydroxide [Milk of Magnesia Concentrate] 30 mg PO DAILY 07/19/20 [History] Sennosides/Docusate Sodium [Senna Plus 8.6-50 mg Tablet] 2 each PO HS 07/19/20 [History] levETIRAcetam [Keppra] 500 mg PO BID 07/19/20 [History] polyethylene glycoL 3350 [Miralax] 17 gm PO HS 07/19/20 [History] LORazepam [Ativan] 0.5 mg PO BID 08/02/20 [History] LORazepam [Ativan] 1 mg PO HS 08/02/20 [History] Acetaminophen Tab [Tylenol Tab] 650 mg PO Q4H PRN #30 tablet 08/09/20 [Rx] Ibuprofen [Motrin] 600 mg PO Q8HR PRN #30 tab 08/09/20 [Rx] Follow up Appointment(s)/Referral(s): Residential Home[facility]Health [NON-STAFF] - As Needed Charly Chow MD [STAFF PHYSICIAN] - 1 Week Activity/Diet/Wound Care/Special Instructions: Medicine to complete med rec Discharge diet regular No lifting over 10 pounds You may shower. No soaking or tub baths For 2 weeks Very light activity until you are reevaluated at your follow up appointment with your surgeon Discharge Disposition: HOME WITH HOME HEALTH SERVICES
[2020-08-09 15:15] VITALS: BP 118/90; RESP 16; TEMP 98
[2020-08-09 15:36] VITALS: PULSE 68
--- NOTE | 2020-08-09 16:23 | P.PN ---
Subjective Patient is status post colostomy reversal in the constipation and colonic obstruction and fecal obstruction. This is being managed by general surgery. I'm unable to get any kind of history from the patient because of her baseline clinical condition. Patient is presently on clear liquid diet. 08/07/2020 Patient barely has any bowel sounds abdomen is mildly distended. Patient extremity side effects from antipsychotics improved after changing the dosing of Haldol. 08/08/2020 Patient is on D5 half-normal saline because of which I'll obtain a basic BMP tomorrow make sure patient is not hyponatremic 08/09/2020 Patient has urinary retention because of which patient is not being discharged today. Review of systems: Unable to often due to her clinical condition All inpatient medications were reviewed and appropriate changes in these med ications as dictated in the interval history and assessment and plan. Objective - Vital Signs Vital signs: Vital Signs Temp 98 F 08/09/20 15:00 Pulse 68 08/09/20 15:44 Resp 16 08/09/20 15:00 BP 118/90 08/09/20 15:00 Pulse Ox 93 L 08/09/20 15:00 Intake & Output 08/08/20 08/09/20 08/09/20 18:59 06:59 18:59 Intake Total 225 298 Output Total 2325 925 670 Balance -2325 -700 -372 Weight 56.245 kg Intake: Intake, IV Titration 200 Amount D5-0.45% NaCl with KCl 200 20Meq/l 1,000 ml @ 60 mls /hr IV .[id number] [facility] Rx#: [id number] Oral 25 298 Output: Urine 2325 925 670 Uretheral (Torres) 400 Other: Voiding Method Indwelling Catheter Indwelling Catheter Incontinent Indwelling Catheter # Bowel Movements 1 2 - Exam PHYSICAL EXAMINATION: GENERAL: The patient is alert and does his orientation, not in any acute distress. Well developed, well nourished. HEENT: Pupils are round and equally reacting to light. EOMI. No scleral icterus. No conjunctival pallor. Normocephalic, atraumatic. No pharyngeal erythema. No thyromegaly. CARDIOVASCULAR: S1 and S2 present. No murmurs, rubs, or gallops. PULMONARY:unable to assess because of her baseline clinically condition ABDOMEN: Soft, nontender, nondistended, normoactive bowel sounds. No palpable organomegaly. MUSCULOSKELETAL: No joint swelling or deformity. EXTREMITIES: No cyanosis, clubbing, or pedal edema. NEUROLOGICAL: Unable to assess SKIN: No rashes. - Labs CBC & Chem 7: 08/09/20 07:05 08/09/20 07:05 Labs: Abnormal Lab Results - Last 24 Hours (Table) 08/09/20 08/09/20 Range/Units 07:05 07:05 WBC 3.6 L (3.8-10.6) k/uL RBC 3.43 L (3.80-5.40) m/uL Hgb 11.0 L (11.4-16.0) gm/dL MCV 101.9 H D (80.0-100.0) fL Plt Count 144 L (150-450) k/uL Anion Gap 3.80 L (4.00-12.00) mmol/L BUN 5.0 L (9.0-27.0) mg/dL Creatinine 0.5 L (0.6-1.5) mg/dL BUN/Creatinine Ratio 10.00 L (12.00-20.00) Ratio Calcium 7.7 L (8.7-10.3) mg/dL Microbiology - Last 24 Hours (Table) 08/04/20 13:58 Blood Culture - Preliminary Blood No Growth after 120 hours Assessment and Plan Plan: -Fecal stasis,: Because obstruction secondary to fecal stasis: Management as per primary servicenumber discharge medication to consideration was done patient can be discharged whenever she is surgically stable. Patient is presently medically stable patient does have urinary retention because of hospitalization and multiple medications including opiates and benzodiazepines. -COPD without any acute exacerbation -Hyperlipidemia -Seizure disorder Patient had tremors because of which psychiatric was consulted and patient was started on Cogentin and Haldol was held which was believed to be responsible for her tremor neurology and psychiatric valuated the patient did tremors improved -Mental retardation
[2020-08-09] MEDS: D5-0.45% NACL WITH KCL 20MEQ/L 1,000 ML IV SCH (16:49)
[2020-08-09] MEDS: ACETAMINOPHEN TAB 325 MG TAB PO PRN (16:50)
[2020-08-09] MEDS ORDERED: FAMOTIDINE 20 MG TAB PO SCH (21:00)
--- NOTE | 2020-08-12 14:39 | P.OP ---
Date of Procedure: 08/02/20 Preoperative Diagnosis: History of fecal obstruction Postoperative Diagnosis: History of fecal obstruction Procedure(s) Performed: Exploratory laparotomy Takedown of splenic flexure Reversal of colostomy Partial colectomy Omentectomy Anesthesia: GIGI Surgeon: Charly Chow Estimated Blood Loss (ml): 10 Pathology: other (colon) Condition: stable Disposition: PACU Description of Procedure: The patient's placed the operative table in supine position. She received MAC. Her abdomen was prepped and draped usual sterile fashion after he is placed in dorsal lithotomy position. The abdomen was entered through a low midline incision. The Bookwalter retractors placed a wound. The patient had a colostomy in the left lower quadrant. The colostomy was then transected the fascial level using the AYLIN stapler. This point by dividing the white line of Toldt's the left colon was mobilized and then the splenic flexure was taken down with sharp dissection in the Enseal device. The transverse colon was mobilized. This point the colon was transected at a suitable spot after the anvil for the 25 mm EEA stapler was placed into the colon. The spike for the a.m. was driven through the staple line. The incisional device the mesentery the bowel was divided. There is piece of nonviable omentum which was transected with the Enseal device and sent to pathology. The EEA stapler was then placed patient anus by the assistant manager pt. The spike was then driven through the anterior rectal wall. The endoscope to the stapler. The anvil was connected and stapler was closed and fired and then withdrawn. 2 intact tissue rings were withdrawn from the anvil. The anus was checked under air insufflation. There is known to any leakage. The abdomen was areas of bleeding seen. The fascia was closed with looped #1 PDS suture. Skin was closed felicia. The colostomy site was then excised by using cautery. The specimens of pathology. The skin was closed felicia. The fascia was closed with #1 Vicryl. Patient top she will was sent to recovery in stable condition.
== END 2020-08-09 18:00 | disposition home health service (06) | DRG 330 ==
LOC: 2ORMAIN 08:30 → EDSTATUS 10:10 → 4SSUR 12:16
PROVIDERS: ADMIT Surgery; ATTEND Surgery
PROC: 0DBU0ZZ Excision of Omentum, Open Approach (ICD-10-PCS; principal; 2020-08-02 10:10)
PROC: 0DBL0ZZ Excision of Transverse Colon, Open Approach (ICD-10-PCS; principal; 2020-08-02 10:10)
DX: Z43.3 Encounter for attention to colostomy (principal); F31.30 Bipolar disorder, current episode depressed, mild or moderate severity, unspecified; N39.0 Urinary tract infection, site not specified; T83.511A Infection and inflammatory reaction due to indwelling urethral catheter, initial encounter; J98.11 Atelectasis; K62.5 Hemorrhage of anus and rectum; D69.6 Thrombocytopenia, unspecified; J44.9 Chronic obstructive pulmonary disease, unspecified; F20.9 Schizophrenia, unspecified; G40.909 Epilepsy, unspecified, not intractable, without status epilepticus; G47.30 Sleep apnea, unspecified; E78.5 Hyperlipidemia, unspecified; F70 Mild intellectual disabilities; H90.5 Unspecified sensorineural hearing loss; I87.2 Venous insufficiency (chronic) (peripheral); M20.41 Other hammer toe(s) (acquired), right foot; M20.42 Other hammer toe(s) (acquired), left foot; R13.10 Dysphagia, unspecified; M19.90 Unspecified osteoarthritis, unspecified site; R25.1 Tremor, unspecified; R32 Unspecified urinary incontinence; T43.4X5A Adverse effect of butyrophenone and thiothixene neuroleptics, initial encounter; Z71.3 Dietary counseling and surveillance; Z79.899 Other long term (current) drug therapy; Z87.01 Personal history of pneumonia (recurrent); Z87.19 Personal history of other diseases of the digestive system; Z98.890 Other specified postprocedural states; Z87.81 Personal history of (healed) traumatic fracture; Z88.8 Allergy status to other drugs, medicaments and biological substances
CPT/HCPCS: 71045; 80048; 80164; 80177; 81001; 84132; 84443; 85025; 86850; 86900; 86901; 87040; 87086; 88307; 94640; 94760

== ENCOUNTER 2020-09-09 13:48 | Inpatient (IN) | payer MEDICARE, OTHER ==
[2020-09-09] MEDS ORDERED: SODIUM CHLORIDE 0.9% 1,000 ML IV STA (14:19)
[2020-09-09] MEDS ORDERED: MORPHINE SULFATE 4 MG/ML SYRINGE IV STA (14:19)
[2020-09-09] MEDS ORDERED: ONDANSETRON 4 MG/2 ML VIAL IVP STA (14:19)
--- NOTE | 2020-09-09 14:40 | ED ---
Abdominal Pain HPI - General Chief Complaint: Abdominal Pain Stated Complaint: Constipated-post op Time Seen by Provider: 09/09/20 14:02 Source: patient Mode of arrival: ambulatory Limitations: altered mental status - History of Present Illness Initial Comments: Patient is a 60-year-old female, history cognitive delay, presenting to the emergency department with her or rn for not having a bowel movement in 6 days. Insurance Compliance Analyst states the patient has been sweating and crying out in pain. She had a colostomy reversal performed just over a month ago with Dr. madden and has been having regular bowel movements until about 6 days ago. She does have a PEG tube present and she has been getting feedings through that. Insurance Compliance Analyst states she has not been vomiting but her appetite is low, she has been trying to drink fluids. She's had no fever, no chills. Insurance Compliance Analyst is unsure if she is passing gas. Patient cannot answer questions. There has been no chest pain or shortness of breath. There are no further complaints at this time. - Related Data Home Medications Medication Instructions Recorded Confirmed Amiodarone [Cordarone] 200 mg PO DAILY@0700 02/12/20 09/09/20 Benztropine Mesylate [Cogentin] 0.5 mg PO BID@0700,2100 07/19/20 09/09/20 Divalproex Sodium [Depakote] 375 mg PO BID@0700,2100 07/19/20 09/09/20 levETIRAcetam [Keppra] 500 mg PO BID@0700,2100 07/19/20 09/09/20 polyethylene glycoL 3350 [Miralax] 17 gm PO HS 07/19/20 09/09/20 LORazepam [Ativan] 0.5 mg PO BID@1200,1600 08/02/20 09/09/20 LORazepam [Ativan] 1 mg PO HS@2100 09/09/20 09/09/20 Magnesium Hydroxide [Milk of 2,400 mg PO DAILY PRN 09/09/20 09/09/20 Magnesia] Na Phos,M-B/Na Phos,Di-Ba [Fleet 133 ml RECTAL DAILY PRN 09/09/20 09/09/20 Adult] Nutren Food Supplement 1 can PEG/G-TUBE TID PRN 09/09/20 09/09/20 Nutren Food Supplement 1 can PEG/G-TUBE TID@1000,1400,2000 09/09/20 09/09/20 haloperidoL [Haloperidol] 2 mg PO BID@0700,2100 09/09/20 09/09/20 Previous Rx's Medication Instructions Recorded Acetaminophen Tab [Tylenol Tab] 650 mg PO Q4H PRN #30 tablet 08/09/20 Ibuprofen [Motrin] 600 mg PO Q8HR PRN #30 tab 08/09/20 Allergies Allergy/AdvReac Type Severity Reaction Status Date / Time quetiapine Allergy Unknown Unknown Verified 09/09/20 16:59 lithium Allergy Unknown Verified 09/09/20 16:59 topiramate [From Topamax] Allergy Unknown Verified 09/09/20 16:59 Review of Systems ROS Statement: Those systems with pertinent positive or pertinent negative responses have been documented in the HPI. ROS Other: All systems not noted in ROS Statement are negative. Past Medical History Past Medical History: COPD, Hyperlipidemia, Pneumonia, Seizure Disorder, Sleep Apnea/CPAP/BIPAP, Syncope Additional Past Medical History / Comment(s): mental retardation, pancytopenia, mild sensorineural hearing loss , HX of dysphagia with aspiration pneumonia, percardial cyst, right side aortic arch, sleep apnea, bronchial asthma, venous insufficincy, chronic constipation; hammer toes, left arm contracture, incontinent at times, walks with 1 person assist., takes pureed diet with thickened liquids., sometimes speech is difficult to understand., Hx of bowel obstruction with colostomy.,anemia., pt resides at [facility] # [phone], Legal Guardian is her sister, Karol [place] # [phone]. History of Any Multi-Drug Resistant Organisms: None Reported Past Surgical History: Orthopedic Surgery Additional Past Surgical History / Comment(s): colectomy with ostomy placement; salvary gland left side removed, fx elbow surgery. Past Anesthesia/Blood Transfusion Reactions: No Reported Reaction Additional Past Anesthesia/Blood Transfusion Reaction / Comment(s): per [id number] hx of post-op reaction that she is aware of. Past Psychological History: Bipolar, Depression, Schizophrenia Smoking Status: Never smoker Past Alcohol Use History: None Reported Past Drug Use History: None Reported - Past Family History Mother Family Medical History: No Reported History General Exam - General Exam Comments Initial Comments: GENERAL: Patient is cognitively delayed, seems to be in pain, moaning. HEAD: Atraumatic, normocephalic. EYES: Pupils equal round and reactive to light, extraocular movements intact, sclera anicteric, conjunctiva are normal. Eyelids were unremarkable. ENT: TMs normal, nares patent, oropharynx clear without exudates. Moist mucous membranes. NECK: Normal range of motion, supple without lymphadenopathy or JVD. LUNGS: Unlabored respirations. Breath sounds clear to auscultation bilaterally and equal. No wheezes rales or rhonchi. HEART: Regular rate and rhythm without murmurs, rubs or gallops. ABDOMEN: Abdomen feels rigid, tender, PEG tube is present. hypoactive bowel sounds. No masses appreciated. : Deferred MUSCULOSKELETAL: Normal extremities with adequate strength and normal range of motion, no pitting or edema. No clubbing or cyanosis. NEUROLOGICAL: The leg, patient is at baseline according to or rn however seems to be in pain. PSYCH: Normal mood, normal affect. SKIN: Warm, Dry, normal turgor, no rashes or lesions noted. Limitations: altered mental status Course Vital Signs 09/09/20 09/09/20 13:53 17:08 Temperature 99 F Pulse Rate 64 71 Respiratory 18 18 Rate Blood Pressure 190/140 126/58 O2 Sat by Pulse 94 L 97 Oximetry Medical Decision Making - Medical Decision Making Patient is a 60-year-old female, with history of cognitive impairment presenting with abdominal pain and no bowel movement for the last 6 days. She recently had a colostomy reversal one month ago and has been doing well until 6 days ago. Patient seems to be crying out in pain, abdomen is tender and rigid. Labs show a normal white count, lactic acid is 1.2, urine shows no evidence of infection. CT of the abdomen and pelvis shows of the sigmoid colon is collapsed and courses sharply into the right lower quadrant and they are unable to follow the rest of the colon, there is concern for possible obstruction, moderate stool, collapsed and 40. Small bowel loops on the left upper quadrant, concern for some type of internal hernia and developing colonic obstruction. Given these findings, significant pain and no bowel movement, patient will be admitted for surgical consultation. Dr. Madden is accepting. Patient's or rn is in agreement with this plan of care. Case discussed with Dr. morse. - Lab Data Result diagrams: 09/09/20 14:18 09/09/20 14:18 Lab Results 09/09/20 09/09/20 09/09/20 Range/Units 14:18 14:18 14:18 WBC 5.7 (3.8-10.6) k/uL RBC 3.77 L (3.80-5.40) m/uL Hgb 13.0 (11.4-16.0) gm/dL Hct 38.3 (34.0-46.0) % MCV 101.7 H (80.0-100.0) fL MCH 34.5 (25.0-35.0) pg MCHC 33.9 (31.0-37.0) g/dL RDW 14.5 (11.5-15.5) % Plt Count 199 (150-450) k/uL MPV 8.9 Neutrophils % 70 % Lymphocytes % 20 % Monocytes % 6 % Eosinophils % 1 % Basophils % 1 % Neutrophils # 4.0 (1.3-7.7) k/uL Lymphocytes # 1.1 (1.0-4.8) k/uL Monocytes # 0.3 (0-1.0) k/uL Eosinophils # 0.1 (0-0.7) k/uL Basophils # 0.1 (0-0.2) k/uL Macrocytosis Slight Sodium 137 (137-145) mmol/L Potassium 4.8 (3.5-5.1) mmol/L Chloride 104 (98-107) mmol/L Carbon Dioxide 27 (22-30) mmol/L Anion Gap 6 mmol/L BUN 29 H (7-17) mg/dL Creatinine 0.57 (0.52-1.04) mg/dL Est GFR (CKD-EPI)AfAm >90 (>60 ml/min/1.73 sqM) Est GFR (CKD-EPI)NonAf >90 (>60 ml/min/1.73 sqM) Glucose 102 H (74-99) mg/dL Plasma Lactic Acid Dinesh 1.2 (0.7-2.0) mmol/L Calcium 8.8 (8.4-10.2) mg/dL Total Bilirubin 0.6 (0.2-1.3) mg/dL AST 44 H (14-36) U/L ALT 20 (4-34) U/L Alkaline Phosphatase 68 (38-126) U/L Total Protein 7.2 (6.3-8.2) g/dL Albumin 3.9 (3.5-5.0) g/dL Amylase 37 (30-110) U/L Lipase 44 (23-300) U/L Urine Color Urine Appearance (Clear) Urine pH (5.0-8.0) Ur Specific Bishop (1.001-1.035) Urine Protein (Negative) Urine Glucose (UA) (Negative) Urine Ketones (Negative) Urine Blood (Negative) Urine Nitrite (Negative) Urine Bilirubin (Negative) Urine Urobilinogen (<2.0) mg/dL Ur Leukocyte Esterase (Negative) 09/09/20 Range/Units 14:36 WBC (3.8-10.6) k/uL RBC (3.80-5.40) m/uL Hgb (11.4-16.0) gm/dL Hct (34.0-46.0) % MCV (80.0-100.0) fL MCH (25.0-35.0) pg MCHC (31.0-37.0) g/dL RDW (11.5-15.5) % Plt Count (150-450) k/uL MPV Neutrophils % % Lymphocytes % % Monocytes % % Eosinophils % % Basophils % % Neutrophils # (1.3-7.7) k/uL Lymphocytes # (1.0-4.8) k/uL Monocytes # (0-1.0) k/uL Eosinophils # (0-0.7) k/uL Basophils # (0-0.2) k/uL Macrocytosis Sodium (137-145) mmol/L Potassium (3.5-5.1) mmol/L Chloride (98-107) mmol/L Carbon Dioxide (22-30) mmol/L Anion Gap mmol/L BUN (7-17) mg/dL Creatinine (0.52-1.04) mg/dL Est GFR (CKD-EPI)AfAm (>60 ml/min/1.73 sqM) Est GFR (CKD-EPI)NonAf (>60 ml/min/1.73 sqM) Glucose (74-99) mg/dL Plasma Lactic Acid Dinesh (0.7-2.0) mmol/L Calcium (8.4-10.2) mg/dL Total Bilirubin (0.2-1.3) mg/dL AST (14-36) U/L ALT (4-34) U/L Alkaline Phosphatase (38-126) U/L Total Protein (6.3-8.2) g/dL Albumin (3.5-5.0) g/dL Amylase (30-110) U/L Lipase (23-300) U/L Urine Color Yellow Urine Appearance Clear (Clear) Urine pH 7.5 (5.0-8.0) Ur Specific Bishop 1.026 (1.001-1.035) Urine Protein Trace H (Negative) Urine Glucose (UA) Negative (Negative) Urine Ketones Negative (Negative) Urine Blood Negative (Negative) Urine Nitrite Negative (Negative) Urine Bilirubin Negative (Negative) Urine Urobilinogen <2.0 (<2.0) mg/dL Ur Leukocyte Esterase Negative (Negative) Disposition Clinical Impression: Bowel obstruction, Continuous severe abdominal pain Disposition: ADMITTED IP TO THIS [facility] Condition: Stable Is patient prescribed a controlled substance at d/c from ED?: No Decision Date: 09/09/20 Decision Time: 16:48
[2020-09-09 14:52] LABS: Basophils # (A) 0.1 k/uL (0-0.2); Basophils % (A) 1 %; Eosinophils # (A) 0.1 k/uL (0-0.7); Eosinophils % (A) 1 %; HCT 38.3 % (34.0-46.0); Lymphocytes # (A) 1.1 k/uL (1.0-4.8); Lymphocytes % (A) 20 %; MCH 34.5 pg (25.0-35.0); MCHC 33.9 g/dL (31.0-37.0); MCV 101.7 fL (80.0-100.0); Macrocytosis Slight; Mean Platelet Volume 8.9; Monocytes # (A) 0.3 k/uL (0-1.0); Monocytes % (A) 6 %; Neutrophils % (A) 70 %; Platelet Count 199 k/uL (150-450); RBC 3.77 m/uL (3.80-5.40); RDW 14.5 % (11.5-15.5); WBC 5.7 k/uL (3.8-10.6)
[2020-09-09 14:57] LABS: ALT 20 U/L (4-34); AST 44 U/L (14-36); African American GFR (CKD) >90 (>60 ml/min/1.73 sqM); Albumin 3.9 g/dL (3.5-5.0); Alkaline Phosphatase 68 U/L (38-126); Amylase 37 U/L (30-110); Anion Gap 6 mmol/L; Blood Urea Nitrogen 29 mg/dL (7-17); Calcium 8.8 mg/dL (8.4-10.2); Carbon Dioxide 27 mmol/L (22-30); Chloride 104 mmol/L (98-107); Glucose 102 mg/dL (74-99); Lipase 44 U/L (23-300); Non-African American GFR(CKD) >90 (>60 ml/min/1.73 sqM); Potassium 4.8 mmol/L (3.5-5.1); Sodium 137 mmol/L (137-145); Total Bilirubin 0.6 mg/dL (0.2-1.3); Total Protein 7.2 g/dL (6.3-8.2)
[2020-09-09 15:49] LABS: Appearance,Urine Clear (Clear); Bilirubin,Urine Negative (Negative); Blood,Urine Negative (Negative); Color,Urine Yellow; Glucose,Urine (UA) Negative (Negative); Ketones,Urine Negative (Negative); Leukocyte Esterase,Urine Negative (Negative); Nitrite,Urine Negative (Negative); PH, Urine 7.5 (5.0-8.0); Protein,Urine Trace (Negative); Specific Gravity,Urine 1.026 (1.001-1.035); Urobilinogen,Urine <2.0 mg/dL (<2.0)
--- NOTE | 2020-09-09 15:55 | CT ---
EXAMINATION TYPE: CT abdomen pelvis w con DATE OF EXAM: 09/09/2020 COMPARISON: 02/16/2020 HISTORY: 60-year-old female abdominal pain, acute, no BM in 6 days TECHNIQUE: Contiguous axial scanning of the abdomen and pelvis following administration of 100 ml Iso low 300 IV contrast. Delayed images through the kidneys and coronal/sagittal reconstructions perform ed. CT DLP: 853.6 mGycm Automated exposure control for dose reduction was used. FINDINGS: Extensive artifacts given the patient's arms down by her sides. Heart upper limits of normal in size without pericardial effusion. Mild generalized anasarca change. Some strandy bibasilar atelectasis without pleural effusion. Liver, gallbladder, adrenal glands, spleen, and pancreas show no gross abnormality allowing for the a rtifacts from the patient's arms. Subcentimeter cortical hypodensities within the left greater than right kidneys, too small fractured CT characterization, suggesting small cortical cysts. Symmetric uptake and excretion of contrast from the kidneys. No free fluid or free air. No obvious dilated small bowel. No mesenteric or retroperitoneal lymphaden opathy seen. A PEG tube is in place. There has been interval reversal of the patient's previous sigmoid colostomy with an end to side anas tomosis. Variably distended colon up to 5.7 cm. There is moderate to large stool in the right side of the colo n. Sigmoid colon is collapsed and seems to course sharply into the right-sided the abdomen, refer to coronal image 47. Unable to clearly follow the left side of the colon after this point. In addition, there seems to be some collapsed and torqued bowel loops in the left mid abdomen and lef t upper quadrant, for example, refer to axial images 24, 31, and 34. Bladder urine distended. Uterus anteverted. Both ovaries are visualized. No abnormal fluid collection in the pelvis or pelvic lymphadenopathy. Bones: Osteopenia. Degenerative change at the hips. Superior endplate deformity of L4 is chronic, unc hanged from 02/16/2020. DISH within the lower thoracic spine and levoconvex curvature of the lumbar spi ne. IMPRESSION: 1. INTERVAL REVERSAL OF THE PATIENT'S SIGMOID COLOSTOMY WITH AN END TO SIDE ANASTOMOSIS. THE SIGMOID COLON IS COLLAPSED AND COURSES SHARPLY INTO THE RIGHT LOWER QUADRANT AND WE ARE UNABLE TO FOLLOW THE REMAINING LEFT SIDE OF THE COLON. 2. RIGHT SIDE OF THE COLON IS VARIABLY DISTENDED WITH MODERATE STOOL UP TO 5.7 CM. 3. SOME COLLAPSED AND TORQUED APPEARING SMALL BOWEL LOOPS IN THE LEFT UPPER QUADRANT. GIVEN THESE FIN DINGS, SOME TYPE OF INTERNAL HERNIA AND DEVELOPING COLONIC OBSTRUCTION IS DIFFICULT TO ENTIRELY EXCLU DE AT THIS TIME. CT WITH RECTAL CONTRAST ADMINISTRATION MAY BE HELPFUL TO DELINEATE THE COURSE OF THE COLON. 4. MILD GENERALIZED ANASARCA CHANGE.
[2020-09-09] MEDS ORDERED: ONDANSETRON 4 MG/2 ML VIAL IVP PRN (16:46)
[2020-09-09] MEDS ORDERED: NALOXONE 0.4 MG/ML 1 ML VIAL IV PRN (16:46)
[2020-09-09] MEDS: MORPHINE SULFATE 4 MG/ML SYRINGE IV PRN (18:41)
[2020-09-09] MEDS: SODIUM CHLORIDE 0.9% 1,000 ML IV SCH (18:42)
[2020-09-09 23:52] LABS: Glucose,Whole Blood 101 mg/dL (75-99)
[2020-09-10] MEDS: MORPHINE SULFATE 4 MG/ML SYRINGE IV PRN ×3 (00:08→10:27)
--- NOTE | 2020-09-10 10:40 | P.GSHP ---
History of Present Illness H&P Date: 09/10/20 CHIEF COMPLAINT: Abdominal pain and no bowel movement for 6 days HISTORY OF PRESENT ILLNESS: This is a 60-year-old female with a known history of cognitive delay and previous colostomy for fecal obstruction and had reversal of colostomy in July 2020. Patient presents to the emergency room with complaints of abdominal pain and no bowel movement for 6 days per caregiver. Patient is nonverbal due to her mental retardation and information was obtained from patient's chart. Patient had computed tomography scan of abdomen and pelvis with IV contrast only and had some concerns for developing bowel obstruction. Patient is currently nothing by mouth. There is no reported vomiting. There has been a decrease in her appetite. No fever or chills reported. PAST MEDICAL HISTORY: See list. PAST SURGICAL HISTORY: See list. MEDICATIONS: See list. ALLERGIES: See list. SOCIAL HISTORY: No illicit drug use. REVIEW OF SYSTEMS: CONSTITUTIONAL: Denies fever or chills. HEENT: Denies blurred vision, vision changes, or eye pain. Denies hemoptysis CARDIOVASCULAR: Denies chest pain or pressure. RESPIRATORY: No shortness of breath. GASTROINTESTINAL: See HPI for pertinent findings HEMATOLOGIC: Denies bleeding disorders. GENITOURINARY: Denies any blood in urine or increased urinary frequency. SKIN: Denies pruitis. Denies rash. PHYSICAL EXAM: VITAL SIGNS: Reviewed GENERAL: Well-developed in no acute distress. HEENT: No sclera icterus. Extraocular movements grossly intact. Moist buccal mucosa. Head is atraumatic, normocephalic. No nasal drainage. ABDOMEN: Nondistended. Old incisions are healing nicely no evidence of infection NEUROLOGIC: Patient is awake nonverbal LABORATORY DATA: WBC 5.7 hemoglobin 13.0 AST 44 UA negative IMAGING: Computed tomography scan abdomen and pelvis interval reversal of the patient's sigmoid colostomy with an end to side anastomosis. The sigmoid colon is collapsed with coarse sharply into the right lower quadrant and are unable to follow the remaining left side of the colon. Right-sided colon is variable distended with moderate stool up to 5.7 cm. Some collapsed and torqued- appearing small bowel loops in the left upper quadrant. Given these findings, some type of internal hernia and developing colonic obstruction is difficult to entirely exclude at this time. ASSESSMENT: 1. Abdominal pain 2. Possible internal hernia and possible developing colonic obstruction 3. previous colostomy for fecal obstruction and had reversal of colostomy in July 2020 PLAN: -Keep patient nothing by mouth -Order computed tomography scan of abdomen and pelvis with rectal contrast for further evaluation of colon -Continue IV fluids -Continue pain medication as needed -Consult medicine for medical management Physician Electronic Security Specialist note has been reviewed by physician. Signing provider agrees with the documented findings, assessment, and plan of care. Past Medical History Past Medical History: COPD, Hyperlipidemia, Pneumonia, Seizure Disorder, Sleep Apnea/CPAP/BIPAP, Syncope Additional Past Medical History / Comment(s): mental retardation, pancytopenia, mild sensorineural hearing loss , HX of dysphagia with aspiration pneumonia, percardial cyst, right side aortic arch, sleep apnea, bronchial asthma, venous insufficincy, chronic constipation; hammer toes, left arm contracture, incontinent at times, walks with 1 person assist., takes pureed diet with thickened liquids., sometimes speech is difficult to understand., Hx of bowel obstruction with colostomy.,anemia., pt resides at [facility] # [phone], Legal Guardian is her sister, Karol Birmingham # [phone]. History of Any Multi-Drug Resistant Organisms: None Reported Past Surgical History: Orthopedic Surgery Additional Past Surgical History / Comment(s): colectomy with ostomy placement; salvary gland left side removed, fx elbow surgery. Past Anesthesia/Blood Transfusion Reactions: No Reported Reaction Additional Past Anesthesia/Blood Transfusion Reaction / Comment(s): per [id number] hx of post-op reaction that she is aware of. Past Psychological History: Bipolar, Depression, Schizophrenia Smoking Status: Never smoker Past Alcohol Use History: None Reported Past Drug Use History: None Reported - Past Family History Mother Family Medical History: No Reported History Medications and Allergies Home Medications Medication Instructions Recorded Confirmed Type Amiodarone [Cordarone] 200 mg PO DAILY@0700 02/12/20 09/09/20 History Benztropine Mesylate [Cogentin] 0.5 mg PO BID@0700,209907/19/20 09/09/20 History Divalproex Sodium [Depakote] 375 mg PO BID@0700,209907/19/20 09/09/20 History levETIRAcetam [Keppra] 500 mg PO BID@0700,209907/19/20 09/09/20 History polyethylene glycoL 3350 [Miralax] 17 gm PO HS 07/19/20 09/09/20 History LORazepam [Ativan] 0.5 mg PO BID@1200,1600 08/02/20 09/09/20 History Acetaminophen Tab [Tylenol Tab] 650 mg PO Q4H PRN #30 tablet 08/09/20 09/09/20 Rx Ibuprofen [Motrin] 600 mg PO Q8HR PRN #30 tab 08/09/20 09/09/20 Rx LORazepam [Ativan] 1 mg PO HS@2100 09/09/20 09/09/20 History Magnesium Hydroxide [Milk of 2,400 mg PO DAILY PRN 09/09/20 09/09/20 History Magnesia] Na Phos,M-B/Na Phos,Di-Ba [Fleet 133 ml RECTAL DAILY PRN 09/09/20 09/09/20 History Adult] Nutren Food Supplement 1 can PEG/G-TUBE TID PRN 09/09/20 09/09/20 History Nutren Food Supplement 1 can PEG/G-TUBE TID@1000,1400,2000 09/09/20 09/09/20 History haloperidoL [Haloperidol] 2 mg PO BID@0700,2100 09/09/20 09/09/20 History Allergies Allergy/AdvReac Type Severity Reaction Status Date / Time quetiapine Allergy Unknown Unknown Verified 09/09/20 16:59 lithium Allergy Unknown Verified 09/09/20 16:59 topiramate [From Topamax] Allergy Unknown Verified 09/09/20 16:59 Surgical - Exam Vital Signs Temp Pulse Resp BP Pulse Ox 99 F 64 18 190/140 94 L 09/09/20 13:53 09/09/20 13:53 09/09/20 13:53 09/09/20 13:53 09/09/20 13:53 Results - Labs 09/09/20 14:18 09/09/20 14:18 Abnormal Lab Results - Last 24 Hours (Table) 09/09/20 09/09/20 09/09/20 Range/Units 14:18 14:18 14:36 RBC 3.77 L (3.80-5.40) m/uL MCV 101.7 H (80.0-100.0) fL BUN 29 H (7-17) mg/dL Glucose 102 H (74-99) mg/dL POC Glucose (mg/dL) (75-99) mg/dL AST 44 H (14-36) U/L Urine Protein Trace H (Negative) 09/09/20 Range/Units 23:50 RBC (3.80-5.40) m/uL MCV (80.0-100.0) fL BUN (7-17) mg/dL Glucose (74-99) mg/dL POC Glucose (mg/dL) 101 H (75-99) mg/dL AST (14-36) U/L Urine Protein (Negative) Diabetes panel 09/09/20 Range/Units 14:18 Sodium 137 (137-145) mmol/L Potassium 4.8 (3.5-5.1) mmol/L Chloride 104 (98-107) mmol/L Carbon Dioxide 27 (22-30) mmol/L BUN 29 H (7-17) mg/dL Creatinine 0.57 (0.52-1.04) mg/dL Glucose 102 H (74-99) mg/dL Calcium 8.8 (8.4-10.2) mg/dL AST 44 H (14-36) U/L ALT 20 (4-34) U/L Alkaline Phosphatase 68 (38-126) U/L Total Protein 7.2 (6.3-8.2) g/dL Albumin 3.9 (3.5-5.0) g/dL Calcium panel 09/09/20 Range/Units 14:18 Calcium 8.8 (8.4-10.2) mg/dL Albumin 3.9 (3.5-5.0) g/dL Pituitary panel 09/09/20 Range/Units 14:18 Sodium 137 (137-145) mmol/L Potassium 4.8 (3.5-5.1) mmol/L Chloride 104 (98-107) mmol/L Carbon Dioxide 27 (22-30) mmol/L BUN 29 H (7-17) mg/dL Creatinine 0.57 (0.52-1.04) mg/dL Glucose 102 H (74-99) mg/dL Calcium 8.8 (8.4-10.2) mg/dL Adrenal panel 09/09/20 Range/Units 14:18 Sodium 137 (137-145) mmol/L Potassium 4.8 (3.5-5.1) mmol/L Chloride 104 (98-107) mmol/L Carbon Dioxide 27 (22-30) mmol/L BUN 29 H (7-17) mg/dL Creatinine 0.57 (0.52-1.04) mg/dL Glucose 102 H (74-99) mg/dL Calcium 8.8 (8.4-10.2) mg/dL Total Bilirubin 0.6 (0.2-1.3) mg/dL AST 44 H (14-36) U/L ALT 20 (4-34) U/L Alkaline Phosphatase 68 (38-126) U/L Total Protein 7.2 (6.3-8.2) g/dL Albumin 3.9 (3.5-5.0) g/dL
[2020-09-10] MEDS: PANTOPRAZOLE 40 MG/10 ML VIAL IVP SCH (11:42)
[2020-09-10] MEDS ORDERED: MAGNESIUM HYDROXIDE 2,400 MG/10 ML CUP PO PRN (11:56)
[2020-09-10] MEDS ORDERED: NA PHOS,M-B/NA PHOS,DI-BA 133 ML ENEMA RECTAL PRN (11:56)
[2020-09-10] MEDS ORDERED: KETOROLAC 15 MG/ML 1 ML VIAL IVP PRN (11:59)
[2020-09-10] MEDS: SODIUM CHLORIDE 0.9% 1,000 ML IV SCH (13:19)
[2020-09-10] MEDS: LORazepam 0.5 MG TAB PO SCH ×2 (13:19→16:59)
--- NOTE | 2020-09-10 13:23 | P.CN ---
Psychiatric Consult - . Consult date: 09/10/20 Consult:: IDENTIFYING DATA: This patient is a 60-year-old female with significant history of schizophrenia and intellectual disability admitted for possible bowel obstruction. HISTORY OF PRESENT ILLNESS: The patient presented to the hospital on 09/10/2020 as patient has had no bowel movement for the past 6 days prior to admission. He has also been reported decreased appetite. Patient is unable to provide any history as she is nonverbal. Patient was recently in the hospital for a colostomy reversal on 08/06/2020 where Psychiatry was also consulted for EPS symptoms. The patient's haldol was decreased at the time. Currently the patient continues to display significant parkinsonian side effects and appears anxious and distressed when approached. Collateral information was provided by the patient's guardian and sister Karol Birmingham who reported that she last saw the patient in July and at the time, the patient appeared to be more agitated than normal but at baseline the patient is nonverbal and overall appears distressed. PAST PSYCHIATRIC HISTORY: Patient has a a history of Schizophrenia. Patient is currently prescribed haldol, depakote and cogentin. She was previously on seroquel, lithium and topamax. She follows with [facility] outpatient. PAST MEDICAL HISTORY: COPD, hyperlipidemia, pneumonia, seizure disorder, sleep apnea, syncope, mental retardation, bowel obstruction s/p colostomy reversal. ALLERGIES: Quetiapine, lithium, to permit CHEMICAL DEPENDENCY HISTORY: Unable to assess FAMILY PSYCHIATRIC/SUBSTANCE USE HISTORY: Unable to assess SOCIAL HISTORY: Patient is currently a resident at [facility]. Her sister Karol Birmingham is her legal guardian. MENTAL STATUS EXAM: General Appearance: Patient appears to be older than stated age, appears disheveled, with poor dentition, dressed in hospital gown and is of thin build. Behavior: Psychomotor activity is elevated. Patient appears to be distressed. Eye contact is maintained throughout the interview. Parkinsonian-like symptoms as well as tardive dyskinesia (perioral mouth movements) appear to be evident. Speech: Patient is nonverbal. Mood/Affect: Unable to assess mood. Affect appears anxious/nervous. Suicidality/Homicidality: Unable to assess as patient is nonverbal Perceptions: Unable to assess this patient is nonverbal Though content/process: Unable to assess as patient is nonverbal Memory and concentration: Grossly poor. Patient has known history of intellectual disability. 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 -Patient DOES NOT have decision making capacity at this time and is unable to reason through and communicate/appreciate the risks, benefits and alternatives to treatment. Patient has a guardian. -Delirium precautions recommended with patient including - avoiding use of narcotics and [employer] sedatives, limit anticholinergic medications when possible, frequent re-orientation, minimize use of restraints, open window shades during the day and close them at night -Would recommend the following medication changes/additions: -We will discontinue Haldol at this time to decrease risk of EPS symptoms. We will initiate treatment with Invega 3 mg by mouth daily at bedtime for management of her schizophrenia. -We will continue Cogentin 0.5 mg by mouth every twice a day at this time. Constipation is a known side effect of this medication may exacerbate her issues -with bowel obstruction. -Continue Depakote -Ingrezza is a FDA approved medication for management of tardive dyskinesia but currently not on our formulary. Recommend the patient's outpatient provider ([facility]) to trial this medication for the patient if possible. -Psychiatry will sign off at this point, please contact with any questions. 09/10/20 13:05
--- NOTE | 2020-09-10 14:49 | P.CONS ---
History of Present Illness - Reason for Consult Constipation, bowel obstruction - History of Present Illness 60-year-old female with the mental retardation is admitted for constipation. Patient unable to move the bowel for about 6 days. Patient had similar episodes in the past. Patient is tachycardic patient is on amiodarone which she is not able to receive leading to tachycardia. I will obtain a EKG because there is no documented atrial fibrillation history. Patient is not a anticoagulation eithe r. I tried to evaluate the patient patient is mostly nonverbal but gets anxious distressed and it doesn't appear to have extrapyramidal side effects including tardive dyskinesia and does have some parkinsonian symptoms. Because of this reason I consulted psychiatry to change her medications patient is on Haldol which can cause extrapyramidal effects. And benztropine is used to prevent these extrapleural side effects which can cause cause constipation. I believe menstrual been is responsible for her frequent constipation episodes. Review of Systems REVIEW OF SYSTEMS: Unable to often due to her clinical condition Past Medical History Past Medical History: Asthma, COPD, Hearing Disorder / Deafness, Hyperlipidemia, Pneumonia, Seizure Disorder, Sleep Apnea/CPAP/BIPAP, Syncope, Vascular Disorder Additional Past Medical History / Comment(s): Recent bowel obstruction with colostomy and then reversal 08/02/20, constipation, cognitive delay/mentally challenged, bronchitis, dysphagia/has peg tube to supplement, pt has had previous aspiration pneumonia and staff at [facility] states recently she has been having increased difficulty swallowing and have been utilizing peg tube more, tremors-sister states never determined cause, incontinent or urine and stool, normally walks with assist of one but not lately-too difficult, MELLY with no cpap but was wearing oxygen at 3L/NC until recently-it was dc/d, mild sensorineural bilateral hearing loss, sister states pt has hx of something ?cyst pericardial/R aortic arch, venous insufficiency, sister unsure if pt has ever had a seizure, L arm contractured, bilateral feet hammer toes, anemia, pancytopenia. History of Any Multi-Drug Resistant Organisms: None Reported Past Surgical History: Orthopedic Surgery Additional Past Surgical History / Comment(s): Peg tube, colectomy with ostomy placement, 08/02/20 reversal of colostomy; salvary gland left side removed, fx elbow surgery. Past Anesthesia/Blood Transfusion Reactions: No Reported Reaction Additional Past Anesthesia/Blood Transfusion Reaction / Comm: per sister-Karol- no hx of post-op reaction that she is aware of. Smoking Status: Never smoker - Past Family History Mother Family Medical History: Vascular Disorder Additional Family Medical History / Comment(s): Mother of a ruptured brain aneurysm in her 50s. Father Family Medical History: Coronary Artery Disease (CAD), Diabetes Mellitus Additional Family Medical History / Comment(s): Father lived to be 92 yrs old. He had CABG Medications and Allergies Home Medications Medication Instructions Recorded Confirmed Type Amiodarone [Cordarone] 200 mg PO DAILY@0700 02/12/20 09/09/20 History Benztropine Mesylate [Cogentin] 0.5 mg PO BID@00,209907/19/20 09/09/20 History Divalproex Sodium [Depakote] 375 mg PO BID@0700,209907/19/20 09/09/20 History levETIRAcetam [Keppra] 500 mg PO BID@0700,209907/19/20 09/09/20 History polyethylene glycoL 3350 [Miralax] 17 gm PO HS 07/19/20 09/09/20 History LORazepam [Ativan] 0.5 mg PO BID@1200,1600 08/02/20 09/09/20 History Acetaminophen Tab [Tylenol Tab] 650 mg PO Q4H PRN #30 tablet 08/09/20 09/09/20 Rx Ibuprofen [Motrin] 600 mg PO Q8HR PRN #30 tab 08/09/20 09/09/20 Rx LORazepam [Ativan] 1 mg PO HS@209909/09/20 09/09/20 History Magnesium Hydroxide [Milk of 2,400 mg PO DAILY PRN 09/09/20 09/09/20 History Magnesia] Na Phos,M-B/Na Phos,Di-Ba [Fleet 133 ml RECTAL DAILY PRN 09/09/20 09/09/20 History Adult] Nutren Food Supplement 1 can PEG/G-TUBE TID PRN 09/09/20 09/09/20 History Nutren Food Supplement 1 can PEG/G-TUBE TID@1000,1400,199909/09/20 09/09/20 History haloperidoL [Haloperidol] 2 mg PO BID@0700,209909/09/20 09/09/20 History Allergies Allergy/AdvReac Type Severity Reaction Status Date / Time quetiapine Allergy Unknown Unknown Verified 09/09/20 16:59 lithium Allergy Unknown Verified 09/09/20 16:59 topiramate [From Topamax] Allergy Unknown Verified 09/09/20 16:59 Physical Exam Vitals: Vital Signs Temp Pulse Pulse Pulse Resp BP BP 09/10/20 08:00 124 H 53 L 16 09/10/20 07:00 98.2 F 53 L 16 104/60 09/10/20 03:59 20 09/10/20 00:15 98 F 93 20 149/75 09/10/20 00:00 24 09/09/20 22:45 98.8 F 124 H 24 133/74 09/09/20 20:00 97.8 F 88 20 148/78 09/09/20 17:08 71 18 126/58 Pulse Ox 09/10/20 08:00 09/10/20 07:00 93 L 09/10/20 03:59 09/10/20 00:15 98 09/10/20 00:00 09/09/20 22:45 97 09/09/20 20:00 97 09/09/20 17:08 97 Intake and Output 09/09/20 09/10/20 09/10/20 22:59 06:59 14:59 Intake Total 555 300 Balance 555 300 Intake: IV 300 300 Invasive Line 1 300 300 Intake, IV Titration 225 Amount Sodium Chloride 0.9% 1, 225 000 ml @ 75 mls/hr IV . [id number] [facility] Rx#:[id number] Oral 30 0 Other: Voiding Method Incontinent Diaper Diaper Self-Catheterization Incontinent Incontinent Weight 61.689 kg PHYSICAL EXAMINATION: GENERAL: The patient was sleeping wasn't distress anxious when I talked try to talk to the patient HEENT: Pupils are round and equally reacting to light. EOMI. No scleral icterus. No conjunctival pallor. Normocephalic, atraumatic. No pharyngeal erythema. No thyromegaly. CARDIOVASCULAR: S1 and S2 present. No murmurs, rubs, or gallops. PULMONARY: Chest is clear to auscultation, no wheezing or crackles. ABDOMEN: Soft, nontender, nondistended, normoactive bowel sounds. No palpable organomegaly. MUSCULOSKELETAL: No joint swelling or deformity. EXTREMITIES: No cyanosis, clubbing, or pedal edema. NEUROLOGICAL: Patient does have mental retardation, does appear to have tremor consistent with Parkinson's, possibility of tardive dyskinesia SKIN: No rashes. Results CBC & Chem 7: 09/09/20 14:18 09/09/20 14:18 Labs: Abnormal Lab Results - Last 24 Hours (Table) 09/09/20 09/09/20 09/09/20 Range/Units 14:18 14:18 14:36 RBC 3.77 L (3.80-5.40) m/uL MCV 101.7 H (80.0-100.0) fL BUN 29 H (7-17) mg/dL Glucose 102 H (74-99) mg/dL POC Glucose (mg/dL) (75-99) mg/dL AST 44 H (14-36) U/L Urine Protein Trace H (Negative) 09/09/20 Range/Units 23:50 RBC (3.80-5.40) m/uL MCV (80.0-100.0) fL BUN (7-17) mg/dL Glucose (74-99) mg/dL POC Glucose (mg/dL) 101 H (75-99) mg/dL AST (14-36) U/L Urine Protein (Negative) Assessment and Plan Plan: -Constipation: Secondary to benztropine, continence consulted psychiatry. Morphine will be discontinued patient was started on Toradol for pain. Patient is receiving Fleet edema. And patient also has milk of magnesia. -Tachycardia: The flex from not taking amiodarone unsure patient has history of A. fib will obtain an EKG. -EPS symptoms secondary to Haldol: Psychiatry was consulted is referred to the documentation for further details of management of her psychiatric symptoms -Seizure disorder -Sleep apnea -Hyperlipidemia -Schizophrenia.
--- NOTE | 2020-09-10 16:00 | CT ---
EXAMINATION TYPE: CT abdomen pelvis w con DATE OF EXAM: 09/10/2020 COMPARISON: 09/09/2020 HISTORY: Bowel obstruction. CT DLP: 582.7 mGycm CONTRAST: CT scan of the abdomen and pelvis is performed with Oral Contrast and with IV Contrast, patient injec sonya with 100 mL of Isovue 300. FINDINGS: LUNG BASES-: No visible nodule. No infiltrate. Basilar linear atelectasis identified. LIVER/GB: No calcified gallstones. No space occupying hepatic lesion. Biliary tree is of normal ca liber. PANCREAS: No inflammation. No distinct mass. SPLEEN: No splenic enlargement. No lesion seen. ADRENALS: No nodule. No thickening. KIDNEYS/BLADDER: No hydronephrosis. No nephrolithiasis. No distinct renal mass. Urinary bladder g rossly unremarkable. BOWEL: Rectal contrast was administered. Contrast is noted to fill the entire colon up to the rectum. There is luminal narrowing at the site of patient's sigmoid anastomosis. There is however no evidenc e for obstruction as again contrast is noted to extend into the cecum. The colon is mildly distended at the transverse colon measuring up to 7.2 cm. Moderate retained fecal debris is seen throughout. Sm all bowel is of normal caliber. Bowel does extend towards the left abdomen and there may be an hospital internship al hernia however no obstructive changes are seen. There is no evidence for free air or pneumoperiton eum. Gastrostomy tube noted. GENITAL ORGANS: No gross abnormality. LYMPH NODES: No greater than 1cm abdominal or pelvic lymph nodes are appreciated. AORTA: No significant abnormality. OSSEOUS STRUCTURES: No significant abnormality is seen. OTHER: No significant additional abnormality is seen. IMPRESSION: 1. Contrast fills a distended: From the rectum to the cecum. There is luminal narrowing at the site o f anastomosis without evidence for obstruction. The colon measures 7.2 cm at the transverse colon. Mo derate retained intracolonic debris. 2. Small bowel internal hernia is difficult to exclude although small bowel is of normal caliber with out evidence for SBO.
[2020-09-10] MEDS: PALIPERIDONE 3 MG TAB.ER.24 PO SCH (23:44)
[2020-09-10] MEDS: LORazepam 1 MG TAB PO SCH (23:44)
[2020-09-10] MEDS: BENZTROPINE MESYLATE 0.5 MG TAB PO SCH (23:45)
[2020-09-10] MEDS: DIVALPROEX SPRINKLE 125 MG CAP.SPRINK PO SCH (23:45)
[2020-09-10] MEDS: levETIRAcetam 500 MG TAB PO SCH (23:45)
[2020-09-10] MEDS: HEPARIN SODIUM,PORCINE 5,000 UNIT/ML 1 ML VIAL SQ SCH (23:46)
[2020-09-11] MEDS: SODIUM CHLORIDE 0.9% 1,000 ML IV SCH ×3 (00:27→23:32)
[2020-09-11] MEDS: levETIRAcetam 500 MG TAB PO SCH ×2 (08:59→22:29)
[2020-09-11] MEDS: HEPARIN SODIUM,PORCINE 5,000 UNIT/ML 1 ML VIAL SQ SCH ×2 (08:59→22:29)
[2020-09-11] MEDS: PANTOPRAZOLE 40 MG/10 ML VIAL IVP SCH (08:59)
[2020-09-11] MEDS: DIVALPROEX SPRINKLE 125 MG CAP.SPRINK PO SCH ×2 (08:59→22:30)
[2020-09-11] MEDS: AMIODARONE 200 MG TAB PO SCH (08:59)
[2020-09-11] MEDS: BENZTROPINE MESYLATE 0.5 MG TAB PO SCH ×2 (09:01→22:29)
[2020-09-11] MEDS: LACTULOSE 20 GM/30 ML CUP PO SCH ×3 (11:52→14:14)
[2020-09-11] MEDS: LORazepam 0.5 MG TAB PO SCH ×2 (11:52→17:08)
--- NOTE | 2020-09-11 12:32 | P.PN ---
Subjective Progress Note Date: 09/11/20 CHIEF COMPLAINT: Abdominal pain HISTORY OF PRESENT ILLNESS: This is a 60-year-old female with a known history of cognitive delay and previous colostomy for fecal obstruction and had reversal of colostomy in July 2020. Patient presents to the emergency room with complaints of abdominal pain and no bowel movement for 6 days per caregiver. Afebrile. Computed tomography scan abdomen and pelvis with rectal contrast shows luminal narrowing at the site of anastomosis without evidence of for obstruction. The colon measures 7.2 cm transverse colon. Moderate retain intracolonic debris. Small bowel in internal hernia is difficult to exclude although small bowel is of normal caliber without evidence of small bowel obstruction. PHYSICAL EXAM: VITAL SIGNS: Reviewed. GENERAL: Well-developed in no acute distress. HEENT: No sclera icterus. Extraocular movements grossly intact. Moist buccal mucosa. Head is atraumatic, normocephalic. ABDOMEN: Soft. Nondistended. Nontender. Old incisions are healing nicely no evidence of infection NEUROLOGIC: Alert and oriented. Cranial nerves II through XII grossly intact. ASSESSMENT: 1. Abdominal pain likely related to constipation. Computed tomography scan showing moderate retain intracolonic debris. 2. Possible small bowel internal hernia noted on computed tomography scan. No evidence of small bowel obstruction 3. previous colostomy for fecal obstruction and had reversal of colostomy in July 2020 PLAN: -We will give lactulose 30 mL one every hour 4 and subset enema to treat patient's constipation -Continue with IV fluids -Medicine and psychiatric consults noted and appreciated -GI prophylaxis Protonix and DVT prophylaxis subcu heparin Physician Cash Shortage Investigator note has been reviewed by physician. Signing provider agrees with the documented findings, assessment, and plan of care. Objective - Vital Signs Vital signs: Vital Signs Temp 99.0 F 09/11/20 07:00 Pulse 89 09/11/20 07:00 Resp 20 09/11/20 07:00 BP 137/72 09/11/20 07:00 Pulse Ox 96 09/11/20 07:00 Intake & Output 09/10/20 09/11/20 09/11/20 18:59 06:59 18:59 Weight 61.689 kg Other: Voiding Method Diaper Diaper Incontinent Incontinent # Voids 2 2 # Bowel Movements 0 - Labs CBC & Chem 7: 09/09/20 14:18 09/09/20 14:18
[2020-09-11] MEDS: ACETAMINOPHEN TAB 325 MG TAB PO PRN ×2 (14:13→22:41)
[2020-09-11] MEDS: LORazepam 1 MG TAB PO SCH (22:29)
[2020-09-11] MEDS: PALIPERIDONE 3 MG TAB.ER.24 PO SCH (22:29)
[2020-09-12] MEDS: PANTOPRAZOLE 40 MG/10 ML VIAL IVP SCH (09:15)
[2020-09-12] MEDS: HEPARIN SODIUM,PORCINE 5,000 UNIT/ML 1 ML VIAL SQ SCH ×2 (09:15→20:35)
[2020-09-12] MEDS: levETIRAcetam 500 MG TAB PO SCH ×2 (09:15→20:36)
[2020-09-12] MEDS: DIVALPROEX SPRINKLE 125 MG CAP.SPRINK PO SCH ×2 (09:15→20:35)
[2020-09-12] MEDS: BENZTROPINE MESYLATE 0.5 MG TAB PO SCH ×2 (09:15→20:36)
[2020-09-12] MEDS: AMIODARONE 200 MG TAB PO SCH (09:15)
--- NOTE | 2020-09-12 11:12 | P.PN ---
Progress Note - Text Progress Note Date: 09/12/20 Patient has had multiple bowel movements last night. On exam vital signs are stable. Abdomen is soft. PEG site is clean. Resolving cost patient. Patient will resume tube feeds today.
[2020-09-12 12:01] LABS: African American GFR (CKD) 108.4 (60.0-200.0); Anion Gap 5.4 mmol/L (4.00-12.00); BUN/Creat Ratio 35.71 Ratio (12.00-20.00); Calcium 8.4 mg/dL (8.7-10.3); Carbon Dioxide 31.6 mmol/L (21.6-31.8); Non-African American GFR(CKD) 93.5 (60.0-200.0); Potassium 3.3 mmol/L (3.5-5.5)
[2020-09-12] MEDS: LORazepam 0.5 MG TAB PO SCH ×2 (12:25→15:58)
[2020-09-12] MEDS: SODIUM CHLORIDE 0.9% 1,000 ML IV SCH (12:25)
[2020-09-12] MEDS: ACETAMINOPHEN TAB 325 MG TAB PO PRN (15:58)
[2020-09-12] MEDS: LORazepam 1 MG TAB PO SCH (20:36)
[2020-09-12] MEDS: PALIPERIDONE 3 MG TAB.ER.24 PO SCH (20:36)
[2020-09-12] MEDS ORDERED: DEXTROSE 5% IN WATER 1,000 ML IV ONE (23:26)
--- NOTE | 2020-09-12 23:26 | P.PN ---
Subjective Progress Note Date: 09/12/20 Principal diagnosis: Constipation 60-year-old female with the mental retardation is admitted for constipation. Patient unable to move the bowel for about 6 days. Patient had similar episodes in the past. Patient is tachycardic patient is on amiodarone which she is not able to receive leading to tachycardia. I will obtain a EKG because there is no documented atrial fibrillation history. Patient is not a anticoagulation either. I tried to evaluate the patient patient is mostly nonverbal but gets anxious distressed and it doesn't appear to have extrapyramidal side effects including tardive dyskinesia and does have some parkinsonian symptoms. Because of this reason I consulted psychiatry to change her medications patient is on Haldol which can cause extrapyramidal effects. And benztropine is used to prevent these extrapleural side effects which can cause cause constipation. I believe menstrual been is responsible for her frequent constipation episodes. 09/12/2020 Patient is currently lying in the bed awake alert but unable to communicate at baseline. Patient otherwise did have bowel movements last night. Heart rate is better controlled. T-max 100.3 last night currently afebrile. Saturating at 100% on 2 L oxygen via nasal cannula. Laboratory to showed sodium 151, potassium 3.3, chloride 114, BUN 25 and creatinine 0.7 IV fluids will be changed to D5 water and follow-up CBC and BMP tomorrow. Complete review of systems could not be obtained from the patient. Current medications reviewed. Objective - Vital Signs Vital signs: Vital Signs Temp 97.6 F 09/12/20 20:00 Pulse 51 L 09/12/20 20:00 Resp 18 09/12/20 20:00 BP 112/50 09/12/20 20:00 Pulse Ox 100 09/12/20 20:00 Intake & Output 09/12/20 09/12/20 09/13/20 06:59 18:59 06:59 Intake Total 585 Balance 585 Intake: Intake, IV Titration 525 Amount Sodium Chloride 0.9% 1, 525 000 ml @ 75 mls/hr IV . [id number] [facility] Rx#:[id number] Other 60 Other: Voiding Method Diaper Diaper Diaper Incontinent Incontinent Incontinent # Voids 1 # Bowel Movements 1 - Exam PHYSICAL EXAMINATION: GENERAL: The patient was sleeping wasn't distress anxious when I talked try to talk to the patient HEENT: Pupils are round and equally reacting to light. EOMI. No scleral icterus. No conjunctival pallor. Normocephalic, atraumatic. No pharyngeal erythema. No thyromegaly. CARDIOVASCULAR: S1 and S2 present. No murmurs, rubs, or gallops. PULMONARY: Chest is clear to auscultation, no wheezing or crackles. ABDOMEN: Soft, nontender, nondistended, normoactive bowel sounds. No palpable organomegaly. MUSCULOSKELETAL: No joint swelling or deformity. EXTREMITIES: No cyanosis, clubbing, or pedal edema. NEUROLOGICAL: Patient does have mental retardation, does appear to have tremor consistent with Parkinson's, possibility of tardive dyskinesia SKIN: No rashes. - Labs CBC & Chem 7: 09/09/20 14:18 09/12/20 07:04 Labs: Abnormal Lab Results - Last 24 Hours (Table) 09/12/20 Range/Units 07:04 Sodium 151 H (135-145) mmol/L Potassium 3.3 L (3.5-5.5) mmol/L Chloride 114 H (96-109) mmol/L BUN/Creatinine Ratio 35.71 H (12.00-20.00) Ratio Calcium 8.4 L (8.7-10.3) mg/dL Assessment and Plan Assessment: -Constipation: Secondary to benztropine, continence consulted psychiatry. Morphine will be discontinued patient was started on Toradol for pain. Patient is receiving Fleet edema and also has milk of magnesia. Pt. did have BM today. -Tachycardia on admission: not sure why the taking amiodarone . ? patient has history of A. fib will obtain an EKG. -EPS symptoms secondary to Haldol: Psychiatry was consulted is referred to the documentation for further details of management of her psychiatric symptoms -Seizure disorder -Sleep apnea -Hyperlipidemia -Schizophrenia. -Hypernatremia due to dehydration volume depletion. Time with Patient: Greater than 30
[2020-09-12] MEDS ORDERED: POTASSIUM CHLORIDE ER 20 MEQ TAB.ER PO STA (23:27)
[2020-09-13 06:17] LABS: Basophils % (A) 1 %; Eosinophils % (A) 1 %; HCT 32.2 % (34.0-46.0); HGB 10.7 gm/dL (11.4-16.0); Lymphocytes # (A) 0.9 k/uL (1.0-4.8); Lymphocytes % (A) 27 %; MCH 34.5 pg (25.0-35.0); MCHC 33.3 g/dL (31.0-37.0); MCV 103.5 fL (80.0-100.0); Macrocytosis Slight; Monocytes # (A) 0.2 k/uL (0-1.0); Monocytes % (A) 6 %; Neutrophils # (A) 2.1 k/uL (1.3-7.7); Neutrophils % (A) 63 %; Platelet Count 144 k/uL (150-450); RBC 3.11 m/uL (3.80-5.40); RDW 14.2 % (11.5-15.5); WBC 3.4 k/uL (3.8-10.6)
[2020-09-13] MEDS: levETIRAcetam 500 MG TAB PO SCH ×2 (08:41→21:49)
[2020-09-13] MEDS: PANTOPRAZOLE 40 MG/10 ML VIAL IVP SCH (08:41)
[2020-09-13] MEDS: HEPARIN SODIUM,PORCINE 5,000 UNIT/ML 1 ML VIAL SQ SCH ×2 (08:41→21:48)
[2020-09-13] MEDS: DIVALPROEX SPRINKLE 125 MG CAP.SPRINK PO SCH ×2 (08:42→21:51)
[2020-09-13] MEDS: BENZTROPINE MESYLATE 0.5 MG TAB PO SCH ×2 (08:42→21:50)
[2020-09-13 09:08] LABS: Anion Gap 5.5 mmol/L (4.00-12.00); BUN/Creat Ratio 43.33 Ratio (12.00-20.00); Calcium 8.3 mg/dL (8.7-10.3); Carbon Dioxide 29.5 mmol/L (21.6-31.8); Non-African American GFR(CKD) 98.4 (60.0-200.0); Potassium 3.4 mmol/L (3.5-5.5)
[2020-09-13] MEDS: AMIODARONE 200 MG TAB PO SCH (09:50)
[2020-09-13] MEDS ORDERED: Potassium Replacement Protocol 1 EACH MISC MISCELLANE PRN (10:57)
--- NOTE | 2020-09-13 12:12 | P.PN ---
Progress Note - Text Progress Note Date: 09/13/20 Patient remained stable. She is tolerating tube feeds. On exam vital signs are stable. Abdomen soft. Constipation appears to be resolved. Patient received tube feeds she'll be discharged likely tomorrow.
[2020-09-13] MEDS ORDERED: POTASSIUM BICARBONATE/CIT AC 20 MEQ TABLET.EFF PO ONE (12:24)
[2020-09-13] MEDS: POTASSIUM CHLORIDE ER 20 MEQ TAB.ER PO SCH (12:40)
[2020-09-13] MEDS: LORazepam 0.5 MG TAB PO SCH ×2 (13:07→16:16)
[2020-09-13] MEDS: LORazepam 1 MG TAB PO SCH (21:49)
[2020-09-13] MEDS: PALIPERIDONE 3 MG TAB.ER.24 PO SCH (21:53)
[2020-09-14] MEDS: DIVALPROEX SPRINKLE 125 MG CAP.SPRINK PO SCH ×2 (07:58→20:43)
[2020-09-14] MEDS: PANTOPRAZOLE 40 MG/10 ML VIAL IVP SCH (08:54)
[2020-09-14] MEDS: levETIRAcetam 500 MG TAB PO SCH ×2 (08:55→20:43)
[2020-09-14] MEDS: HEPARIN SODIUM,PORCINE 5,000 UNIT/ML 1 ML VIAL SQ SCH ×2 (08:55→20:43)
[2020-09-14] MEDS: BENZTROPINE MESYLATE 0.5 MG TAB PO SCH ×2 (08:55→20:43)
[2020-09-14] MEDS: AMIODARONE 200 MG TAB PO SCH (08:55)
[2020-09-14] MEDS: risperiDONE 1 MG TAB PO SCH (09:14)
--- NOTE | 2020-09-14 10:30 | P.CON ---
Consult Note - . Consult date: 09/14/20 Assessment/Plan:: Clinical Problems: Schizophrenia, EPS Interim history: She is a 60-year-old female with history of schizophrenia. [facility] of abdominal pain and no bowel movements for about 6 days prior to admission. She was admitted to surgery for evaluation of possible bowel obstruction. She was evaluated by Dr. Gomez on 09/10/2020 who recommended treatment with Invega 3 mg daily. The patient's nurse called me this morning concerned about the prescription for Invega. She stated that Oziel is nothing by mouth and menstruation instructions indicate to swallow whole and not to chew, divide or crush. There is no reported side effects to the initial doses of Invega. Mental status exam: She presented as lethargic elderly woman who was minimally responsive. Assessment: Patient is nothing by mouth and not able to swallow Invega whole Plan: Discontinue Invega. Begin risperidone liquid 2 mg daily and change to risperidone tablet 2 mg daily when she is able to swallow.
--- NOTE | 2020-09-14 12:27 | P.PN ---
Progress Note - Text Progress Note Date: 09/14/20 The patient appears to be doing well. She has no complaints. On exam vital signs are stable. Abdomen soft. Resolving cost patient. Patient most likely discharged home the next 24-48 hours.
[2020-09-14] MEDS: LORazepam 0.5 MG TAB PO SCH ×2 (13:18→16:50)
--- NOTE | 2020-09-14 20:17 | P.PN ---
Subjective Progress Note Date: 09/13/20 60-year-old female with the mental retardation is admitted for constipation. Patient unable to move the bowel for about 6 days. Patient had similar episodes in the past. Patient is tachycardic patient is on amiodarone which she is not able to receive leading to tachycardia. I will obtain a EKG because there is no documented atrial fibrillation history. Patient is not a anticoagulation either. I tried to evaluate the patient patient is mostly nonverbal but gets anxious distressed and it doesn't appear to have extrapyramidal side effects including tardive dyskinesia and does have some parkinsonian symptoms. Because of this reason I consulted psychiatry to change her medications patient is on H aldol which can cause extrapyramidal effects. And benztropine is used to prevent these extrapleural side effects which can cause cause constipation. Objective - Vital Signs Vital signs: Vital Signs Temp 97.8 F 09/13/20 12:31 Pulse 56 L 09/13/20 12:31 Resp 16 09/13/20 12:31 BP 114/62 09/13/20 12:31 Pulse Ox 100 09/13/20 12:31 Intake & Output 09/12/20 09/13/20 09/13/20 18:59 06:59 18:59 Intake Total 585 Balance 585 Weight 62 kg Intake: Intake, IV Titration 525 Amount Sodium Chloride 0.9% 1, 525 000 ml @ 75 mls/hr IV . [id number] [facility] Rx#:[id number] Other 60 Other: Voiding Method Diaper Diaper Diaper Incontinent Incontinent Incontinent - Exam GENERAL: The patient was sleeping wasn't distress anxious when I talked try to talk to the patient HEENT: Pupils are round and equally reacting to light. EOMI. No scleral icterus. No conjunctival pallor. Normocephalic, atraumatic. No pharyngeal erythema. No thyromegaly. CARDIOVASCULAR: S1 and S2 present. No murmurs, rubs, or gallops. PULMONARY: Chest is clear to auscultation, no wheezing or crackles. ABDOMEN: Soft, nontender, nondistended, normoactive bowel sounds. No palpable organomegaly. MUSCULOSKELETAL: No joint swelling or deformity. EXTREMITIES: No cyanosis, clubbing, or pedal edema. NEUROLOGICAL: Patient does have mental retardation, does appear to have tremor consistent with Parkinson's, possibility of tardive dyskinesia SKIN: No rashes. - Labs CBC & Chem 7: 09/13/20 05:49 09/13/20 05:49 Labs: Abnormal Lab Results - Last 24 Hours (Table) 09/13/20 09/13/20 Range/Units 05:49 05:49 WBC 3.4 L (3.8-10.6) k/uL RBC 3.11 L (3.80-5.40) m/uL Hgb 10.7 L (11.4-16.0) gm/dL Hct 32.2 L (34.0-46.0) % MCV 103.5 H (80.0-100.0) fL Plt Count 144 L (150-450) k/uL Lymphocytes # 0.9 L (1.0-4.8) k/uL Sodium 146 H (135-145) mmol/L Potassium 3.4 L (3.5-5.5) mmol/L Chloride 111 H (96-109) mmol/L BUN/Creatinine Ratio 43.33 H (12.00-20.00) Ratio Calcium 8.3 L (8.7-10.3) mg/dL Assessment and Plan Assessment: -Constipation: Secondary to benztropine, continence consulted psychiatry. Morphine will be discontinued patient was started on Toradol for pain. Patient is receiving Fleet edema and also has milk of magnesia. Pt. did have BM today. -Tachycardia on admission: not sure why the taking amiodarone . ? patient has history of A. fib will obtain an EKG. -EPS symptoms secondary to Haldol: Psychiatry was consulted is referred to the documentation for further details of management of her psychiatric symptoms -Seizure disorder -Sleep apnea -Hyperlipidemia -Schizophrenia. -Hypernatremia due to dehydration volume depletion.
--- NOTE | 2020-09-14 20:22 | P.PN ---
Subjective Progress Note Date: 09/14/20 60-year-old female with the mental retardation is admitted for constipation. Patient unable to move the bowel for about 6 days. Patient had similar episodes in the past. Patient is tachycardic patient is on amiodarone which she is not able to receive leading to tachycardia. I will obtain a EKG because there is no documented atrial fibrillation history. Patient is not a anticoagulation either. I tried to evaluate the patient patient is mostly nonverbal but gets anxious distressed and it doesn't appear to have extrapyramidal side effects including tardive dyskinesia and does have some parkinsonian symptoms. Because of this reason I consulted psychiatry to change her medications patient is on H aldol which can cause extrapyramidal effects. And benztropine is used to prevent these extrapleural side effects which can cause cause constipation. Objective - Vital Signs Vital signs: Vital Signs Temp 98.0 F 09/14/20 19:40 Pulse 68 09/14/20 19:40 Resp 16 09/14/20 19:40 BP 127/71 09/14/20 19:40 Pulse Ox 97 09/14/20 19:40 Intake & Output 09/14/20 09/14/20 09/15/20 06:59 18:59 06:59 Intake Total 20 Balance 20 Weight 56.5 kg Intake: Tube Feeding 20 Other: Voiding Method Diaper Incontinent # Voids 2 1 # Bowel Movements 0 - Exam GENERAL: The patient was sleeping wasn't distress anxious when I talked try to talk to the patient HEENT: Pupils are round and equally reacting to light. EOMI. No scleral icterus. No conjunctival pallor. Normocephalic, atraumatic. No pharyngeal erythema. No thyromegaly. CARDIOVASCULAR: S1 and S2 present. No murmurs, rubs, or gallops. PULMONARY: Chest is clear to auscultation, no wheezing or crackles. ABDOMEN: Soft, nontender, nondistended, normoactive bowel sounds. No palpable organomegaly. MUSCULOSKELETAL: No joint swelling or deformity. EXTREMITIES: No cyanosis, clubbing, or pedal edema. NEUROLOGICAL: Patient does have mental retardation, does appear to have tremor consistent with Parkinson's, possibility of tardive dyskinesia SKIN: No rashes. - Labs CBC & Chem 7: 09/13/20 05:49 09/13/20 05:49 Assessment and Plan Assessment: -Constipation: Secondary to benztropine, continence consulted psychiatry. Morphine will be discontinued patient was started on Toradol for pain. Patient is receiving Fleet edema and also has milk of magnesia. Pt. did have BM today. -Tachycardia on admission: not sure why the taking amiodarone . ? patient has history of A. fib will obtain an EKG. -EPS symptoms secondary to Haldol: Psychiatry was consulted is referred to the documentation for further details of management of her psychiatric symptoms -Seizure disorder -Sleep apnea -Hyperlipidemia -Schizophrenia. -Hypernatremia due to dehydration volume depletion.
[2020-09-14] MEDS: LORazepam 1 MG TAB PO SCH (20:43)
[2020-09-15 05:53] LABS: Basophils % (A) 1 %; Eosinophils % (A) 1 %; HCT 38.4 % (34.0-46.0); HGB 12.8 gm/dL (11.4-16.0); Lymphocytes % (A) 21 %; MCH 34.5 pg (25.0-35.0); MCHC 33.3 g/dL (31.0-37.0); MCV 103.4 fL (80.0-100.0); Macrocytosis Slight; Mean Platelet Volume 9.1; Monocytes # (A) 0.2 k/uL (0-1.0); Monocytes % (A) 5 %; Neutrophils # (A) 3.3 k/uL (1.3-7.7); Neutrophils % (A) 72 %; Platelet Count 152 k/uL (150-450); RBC 3.72 m/uL (3.80-5.40); RDW 13.7 % (11.5-15.5); WBC 4.6 k/uL (3.8-10.6)
[2020-09-15] MEDS: levETIRAcetam 500 MG TAB PO SCH ×2 (07:35→20:14)
[2020-09-15] MEDS: DIVALPROEX SPRINKLE 125 MG CAP.SPRINK PO SCH ×2 (07:35→20:15)
[2020-09-15] MEDS: BENZTROPINE MESYLATE 0.5 MG TAB PO SCH ×2 (07:36→20:15)
[2020-09-15] MEDS: PANTOPRAZOLE 40 MG/10 ML VIAL IVP SCH (07:36)
[2020-09-15] MEDS: risperiDONE 1 MG TAB PO SCH (07:36)
[2020-09-15] MEDS: HEPARIN SODIUM,PORCINE 5,000 UNIT/ML 1 ML VIAL SQ SCH ×2 (07:36→20:14)
[2020-09-15] MEDS: AMIODARONE 200 MG TAB PO SCH (07:36)
[2020-09-15 09:58] LABS: Anion Gap 5.7 mmol/L (4.00-12.00); Calcium 8.6 mg/dL (8.7-10.3); Carbon Dioxide 32.3 mmol/L (21.6-31.8); Non-African American GFR(CKD) 98.4 (60.0-200.0); Potassium 3.8 mmol/L (3.5-5.5)
[2020-09-15] MEDS: LORazepam 0.5 MG TAB PO SCH ×2 (13:34→16:45)
--- NOTE | 2020-09-15 14:02 | P.PN ---
Progress Note - Text Progress Note Date: 09/15/20 Patient been stable. On exam her vital signs are stable. Abdomen soft. Patient's has not had a bowel movement today. We will plan for discharge home tomorrow.
[2020-09-15 15:29] VITALS: BMI 23.8
--- NOTE | 2020-09-15 17:45 | P.PN ---
Subjective Progress Note Date: 09/14/20 Principal diagnosis: Constipation 60-year-old female with the mental retardation is admitted for constipation. Patient unable to move the bowel for about 6 days. Patient had similar episodes in the past. Patient is tachycardic patient is on amiodarone which she is not able to receive leading to tachycardia. I will obtain a EKG because there is no documented atrial fibrillation history. Patient is not a anticoagulation either. I tried to evaluate the patient patient is mostly nonverbal but gets anxious distressed and it doesn't appear to have extrapyramidal side effects including tardive dyskinesia and does have some parkinsonian symptoms. Because of this reason I consulted psychiatry to change her medications patient is on Haldol which can cause extrapyramidal effects. And benztropine is used to prevent these extrapleural side effects which can cause cause constipation. 09/14/2020 Patient is seen and evaluated in room at bedside; no specific complaints at this time Vital signs are reviewed and are stable; labs are reviewed from 09/13/2020 and reveal improved sodium level at 146 down from 151; potassium of 3.4 Constipation is resolving; we will continue to monitor and stabilize electrolytes Surgery recommending close monitoring with possible discharge in next 24-48 hours Objective - Vital Signs Vital signs: Vital Signs Temp 98.0 F 09/14/20 19:40 Pulse 68 09/14/20 19:40 Resp 16 09/14/20 19:40 BP 127/71 09/14/20 19:40 Pulse Ox 97 09/14/20 19:40 Intake & Output 09/14/20 09/14/20 09/15/20 06:59 18:59 06:59 Intake Total 20 Balance 20 Weight 56.5 kg Intake: Tube Feeding 20 Other: Voiding Method Diaper Incontinent # Voids 2 1 # Bowel Movements 0 - Exam GENERAL: The patient was sleeping wasn't distress anxious when I talked try to talk to the patient HEENT: Pupils are round and equally reacting to light. EOMI. No scleral icterus. No conjunctival pallor. Normocephalic, atraumatic. No pharyngeal erythema. No thyromegaly. CARDIOVASCULAR: S1 and S2 present. No murmurs, rubs, or gallops. PULMONARY: Chest is clear to auscultation, no wheezing or crackles. ABDOMEN: Soft, nontender, nondistended, normoactive bowel sounds. No palpable organomegaly. MUSCULOSKELETAL: No joint swelling or deformity. EXTREMITIES: No cyanosis, clubbing, or pedal edema. NEUROLOGICAL: Patient does have mental retardation, does appear to have tremor consistent with Parkinson's, possibility of tardive dyskinesia SKIN: No rashes. - Labs CBC & Chem 7: 09/15/20 05:13 09/15/20 05:13 Assessment and Plan Assessment: -Constipation: Secondary to benztropine, continence consulted psychiatry. Morphine will be discontinued patient was started on Toradol for pain. Patient is receiving Fleet edema and also has milk of magnesia. Pt. did have BM today. -Tachycardia on admission: not sure why the taking amiodarone . ? patient has history of A. fib will obtain an EKG. -EPS symptoms secondary to Haldol: Psychiatry was consulted is referred to the documentation for further details of management of her psychiatric symptoms -Seizure disorder -Sleep apnea -Hyperlipidemia -Schizophrenia. -Hypernatremia due to dehydration volume depletion.
[2020-09-15] MEDS: LORazepam 1 MG TAB PO SCH (20:14)
[2020-09-16 00:07] LABS: Glucose,Whole Blood 98 mg/dL (75-99)
[2020-09-16 07:43] VITALS: BP 103/69; RESP 17; TEMP 97.1
[2020-09-16] MEDS: DIVALPROEX SPRINKLE 125 MG CAP.SPRINK PO SCH (07:53)
[2020-09-16] MEDS: levETIRAcetam 500 MG TAB PO SCH (07:54)
[2020-09-16] MEDS: AMIODARONE 200 MG TAB PO SCH (07:54)
[2020-09-16] MEDS: PANTOPRAZOLE 40 MG/10 ML VIAL IVP SCH (07:54)
[2020-09-16] MEDS: HEPARIN SODIUM,PORCINE 5,000 UNIT/ML 1 ML VIAL SQ SCH (07:54)
[2020-09-16] MEDS: BENZTROPINE MESYLATE 0.5 MG TAB PO SCH (07:54)
[2020-09-16] MEDS: risperiDONE 1 MG TAB PO SCH (07:55)
[2020-09-16 08:04] LABS: Basophils % (A) 0 %; Eosinophils % (A) 1 %; HCT 36.8 % (34.0-46.0); HGB 11.8 gm/dL (11.4-16.0); Lymphocytes # (A) 0.8 k/uL (1.0-4.8); Lymphocytes % (A) 25 %; MCH 33.6 pg (25.0-35.0); MCHC 32.2 g/dL (31.0-37.0); MCV 104.3 fL (80.0-100.0); Macrocytosis Moderate; Mean Platelet Volume 9.6; Monocytes # (A) 0.2 k/uL (0-1.0); Monocytes % (A) 6 %; Neutrophils # (A) 2.2 k/uL (1.3-7.7); Neutrophils % (A) 66 %; Platelet Count 139 k/uL (150-450); RBC 3.53 m/uL (3.80-5.40); RDW 14.3 % (11.5-15.5); WBC 3.4 k/uL (3.8-10.6)
[2020-09-16 09:30] VITALS: PULSE 75
[2020-09-16] MEDS: LORazepam 0.5 MG TAB PO SCH (11:11)
[2020-09-16 11:26] LABS: African American GFR (CKD) 121.1 (60.0-200.0); Anion Gap 4.8 mmol/L (4.00-12.00); Calcium 8.2 mg/dL (8.7-10.3); Carbon Dioxide 32.2 mmol/L (21.6-31.8); Non-African American GFR(CKD) 104.5 (60.0-200.0); Potassium 3.7 mmol/L (3.5-5.5)
--- NOTE | 2020-09-16 13:12 | P.DS ---
Providers Date of admission: 09/09/20 16:33 Expected date of discharge: 09/16/20 Attending physician: Charly Chow Consults: 09/10/20 08:20 Consult Physician Routine Consulting Provider: Betsey Petersen Consult Reason/Comments: medical management Do you want consulting provider notified?: Yes 09/10/20 12:00 Consult Physician Routine Consulting Provider: Benji Leslie Consult Reason/Comments: Extrapyramidal side effects of Haldol Do you want consulting provider notified?: Yes Primary care physician: Carlitos Valenzuela Hospital Course: Discharge diagnosis 1. Abdominal pain likely related to constipation. Now resolved 2. Possible small bowel internal hernia noted on computed tomography scan. No evidence of small bowel obstruction 3. previous colostomy for fecal obstruction and had reversal of colostomy in July 2020 Hospital course This is a 60-year-old female with a known history of cognitive delay and previous colostomy for fecal obstruction and had reversal of colostomy in July 2020. Patient presents to the emergency room with complaints of abdominal pain and no bowel movement for 6 days per caregiver. Patient is nonverbal due to her mental retardation and information was obtained from patient's chart. Patient had computed tomography scan of abdomen and pelvis with IV contrast only and had some concerns for developing bowel obstruction. She had another computed tomography scan with rectal contrast shows moderate pain and for colonic debris. Patient was given lactulose and had multiple bowel movements. Patient has been having stools regularly. Her tube feedings were restarted and she is tolerating tube feedings. No further evidence of abdominal pain. Patient is afebrile and is stable for discharge. Physician Director [employer] note has been reviewed by physician. Signing provider agrees with the documented findings, assessment, and plan of care. Patient Condition at Discharge: Stable Plan - Discharge Summary Discharge Rx Participant: No New Discharge Prescriptions: Continue Amiodarone [Cordarone] 200 mg PO DAILY@0700 Benztropine Mesylate [Cogentin] 0.5 mg PO BID@0700,2100 polyethylene glycoL 3350 [Miralax] 17 gm PO HS levETIRAcetam [Keppra] 500 mg PO BID@0700,2100 Divalproex Sodium [Depakote] 375 mg PO BID@0700,2100 LORazepam [Ativan] 0.5 mg PO BID@1200,1600 Ibuprofen [Motrin] 600 mg PO Q8HR PRN #30 tab PRN Reason: Pain Acetaminophen Tab [Tylenol] 650 mg PO Q4H PRN #30 tablet PRN Reason: Pain Na Phos,M-B/Na Phos,Di-Ba [Fleet Adult] 133 ml RECTAL DAILY PRN PRN Reason: IF NO BM IN 4DAYS Magnesium Hydroxide [Milk of Magnesia] 2,400 mg PO DAILY PRN PRN Reason: CONSTIPATION X2DAYS Nutren Food Supplement 1 can PEG/G-TUBE TID PRN PRN Reason: IF REFUSING FOOD Nutren Food Supplement 1 can PEG/G-TUBE TID@1000,1400,1999 LORazepam [Ativan] 1 mg PO HS@2100 Discontinued haloperidoL [Haloperidol] 2 mg PO BID@0700,2100 Discharge Medication List Amiodarone [Cordarone] 200 mg PO DAILY@0700 02/12/20 [History] Benztropine Mesylate [Cogentin] 0.5 mg PO BID@0700,2100 07/19/20 [History] Divalproex Sodium [Depakote] 375 mg PO BID@0700,2100 07/19/20 [History] levETIRAcetam [Keppra] 500 mg PO BID@0700,2100 07/19/20 [History] polyethylene glycoL 3350 [Miralax] 17 gm PO HS 07/19/20 [History] LORazepam [Ativan] 0.5 mg PO BID@1200,1600 08/02/20 [History] Acetaminophen Tab [Tylenol] 650 mg PO Q4H PRN #30 tablet 08/09/20 [Rx] Ibuprofen [Motrin] 600 mg PO Q8HR PRN #30 tab 08/09/20 [Rx] LORazepam [Ativan] 1 mg PO HS@2100 09/09/20 [History] Magnesium Hydroxide [Milk of Magnesia] 2,400 mg PO DAILY PRN 09/09/20 [History] Na Phos,M-B/Na Phos,Di-Ba [Fleet Adult] 133 ml RECTAL DAILY PRN 09/09/20 [History] Nutren Food Supplement 1 can PEG/G-TUBE TID PRN 09/09/20 [History] Nutren Food Supplement 1 can PEG/G-TUBE TID@1000,1400,199909/09/20 [History] Follow up Appointment(s)/Referral(s): Carlitos Valenzuela MD [Primary Care Provider] - 1-2 days [facility] [NON-STAFF] - As Needed Charly Chow MD [STAFF PHYSICIAN] - 1 Week Activity/Diet/Wound Care/Special Instructions: Diet continue her tube feedings and her previous oral diet Discharge Disposition: HOME WITH HOME HEALTH SERVICES
--- NOTE | 2020-09-16 19:42 | P.PN ---
Subjective Progress Note Date: 09/16/20 This is a 60-year-old female who was recently admitted with constipation and unable to have a bowel movement for the last 6 days and is being closely monitored. We are following with surgery. Sodium level was also elevated and has improved and is currently 143 today. Patient was also evaluated by psychiatry and medication changes have been made. Patient is now on Risperdal and haldol has been discontinued. Patient has history of mental retardation and does not speak and is anxious very easily. No reports of chest pain or shortness of breath noted. Tube feedings at goal. Objective - Vital Signs Vital signs: Vital Signs Temp 97.1 F L 09/16/20 07:43 Pulse 75 09/16/20 09:29 Resp 17 09/16/20 07:43 BP 103/69 09/16/20 07:43 Pulse Ox 96 09/16/20 09:29 Intake & Output 09/15/20 09/16/20 09/16/20 18:59 06:59 18:59 Intake Total 300 Balance 300 Weight 57.2 kg 44 kg Intake: Tube Feeding 300 Other: Voiding Method Diaper Diaper Diaper Incontinent Incontinent Incontinent # Voids 1 - Exam Gen: This is a 60-year-old female lying in bed. Lethargic, arousable. becomes anxious. Temp is 97.1F, pulse is 62, respirations are 17, blood pressure is 103/69, oxygen saturation is 99% on 2 L via nasal cannula HEENT: Head is atraumatic, normocephalic. Pupils equal, round. Sclerae is anicteric. NECK: Supple. No JVD. No lymphadenopathy. No thyromegaly. LUNGS: Clear to auscultation. No wheezes or rhonchi. No intercostal retractions. HEART: Regular rate and rhythm. No murmur. ABDOMEN: Soft. Bowel sounds are present. No masses. No tenderness. EXTREMITIES: No pedal edema. No calf tenderness. NEUROLOGICAL: Patient is asleep but arousable and anxious. - Labs CBC & Chem 7: 09/16/20 06:58 09/16/20 06:58 Labs: Abnormal Lab Results - Last 24 Hours (Table) 09/16/20 09/16/20 Range/Units 06:58 06:58 WBC 3.4 L (3.8-10.6) k/uL RBC 3.53 L (3.80-5.40) m/uL MCV 104.3 H (80.0-100.0) fL Plt Count 139 L (150-450) k/uL Lymphocytes # 0.8 L (1.0-4.8) k/uL Carbon Dioxide 32.2 H (21.6-31.8) mmol/L Creatinine 0.5 L (0.6-1.5) mg/dL BUN/Creatinine Ratio 42.00 H (12.00-20.00) Ratio Calcium 8.2 L (8.7-10.3) mg/dL Assessment and Plan Assessment: -Constipation: Secondary to benztropine -Tachycardia on admission -EPS symptoms secondary to Haldol -Seizure disorder -Sleep apnea -Hyperlipidemia -Schizophrenia -Hypernatremia due to dehydration volume depletion -no code Plan: continue current medications and symptomatic treatment. Continue to follow along with surgery. Patient has resumed tube feedings and is at goal. Patient is having bowel movements. Haldol discontinued and patient is now on risperdol. Per surgery patient is being discharged today. Social work following. further recommendations to follow.
== END 2020-09-16 15:10 | disposition home health service (06) | DRG 392 ==
LOC: EC 13:48 → 4SSUR 16:33 → 5NMEDONC 09-12 22:18
PROVIDERS: ADMIT Surgery; ATTEND Surgery
DX: K59.09 Other constipation (principal); G21.2 Secondary parkinsonism due to other external agents; E87.0 Hyperosmolality and hypernatremia; K46.9 Unspecified abdominal hernia without obstruction or gangrene; J44.9 Chronic obstructive pulmonary disease, unspecified; G40.909 Epilepsy, unspecified, not intractable, without status epilepticus; F20.9 Schizophrenia, unspecified; T43.4X5A Adverse effect of butyrophenone and thiothixene neuroleptics, initial encounter; Z93.1 Gastrostomy status; Z93.3 Colostomy status; R00.0 Tachycardia, unspecified; R13.10 Dysphagia, unspecified; T42.8X5A Adverse effect of antiparkinsonism drugs and other central muscle-tone depressants, initial encounter; E86.0 Dehydration; E78.5 Hyperlipidemia, unspecified; G47.30 Sleep apnea, unspecified; F70 Mild intellectual disabilities; H90.5 Unspecified sensorineural hearing loss; I87.2 Venous insufficiency (chronic) (peripheral); M20.41 Other hammer toe(s) (acquired), right foot; M20.42 Other hammer toe(s) (acquired), left foot; F32.9 Major depressive disorder, single episode, unspecified; Z91.14 Patient's other noncompliance with medication regimen; Z88.8 Allergy status to other drugs, medicaments and biological substances; Z79.899 Other long term (current) drug therapy; Z87.01 Personal history of pneumonia (recurrent); Z82.49 Family history of ischemic heart disease and other diseases of the circulatory system; Z83.3 Family history of diabetes mellitus; Z84.89 Family history of other specified conditions
CPT/HCPCS: 36415; 74177; 80048; 80053; 81003; 82150; 83605; 83690; 85025; 93005; 96361; 96374; 96375; 99285

== ENCOUNTER 2020-11-01 03:47 | Inpatient (IN) | payer MEDICARE, OTHER ==
--- NOTE | 2020-11-01 05:10 | XR ---
EXAM: XR Abdomen, 2 Views CLINICAL HISTORY: PEG tube replacement TECHNIQUE: Frontal view of the abdomen/pelvis with upright view of the abdomen. COMPARISON: No relevant prior studies available. FINDINGS: Intraperitoneal space: No free air. Gastrointestinal tract: Unremarkable. Organs: Contrast within urinary bladder. Bones/joints: Unremarkable. Tubes, lines and devices: Evidence of the PEG tube status post ministration of enteric contrast. There is filling of the stomach and proximal small bowel. No evidence of leak. IMPRESSION: Evidence of the PEG tube status post ministration of enteric contrast. There is filling of the stomach and proximal small bowel. No evidence of leak.
[2020-11-01] MEDS ORDERED: ACETAMINOPHEN TAB 325 MG TAB PO PRN ×2 (06:31→07:23)
[2020-11-01] MEDS ORDERED: NALOXONE 0.4 MG/ML 1 ML VIAL IV PRN (06:31)
[2020-11-01] MEDS ORDERED: MAGNESIUM HYDROXIDE 2,400 MG/10 ML CUP PO PRN (06:43)
[2020-11-01] MEDS ORDERED: NA PHOS,M-B/NA PHOS,DI-BA 133 ML ENEMA RECTAL PRN (06:43)
--- NOTE | 2020-11-01 06:43 | ED ---
General Adult HPI - General Chief complaint: Recheck/Abnormal Lab/Rx Stated complaint: Peg tube issue Time Seen by Provider: 11/01/20 04:01 Source: patient, EMS Mode of arrival: EMS Limitations: physical limitation (There is moderate speech impairment) - History of Present Illness Initial comments: This patient is a 60-year-old woman who is transferred here from outside hospital. The patient had been taken there with concern of possible infection at the site of her peg tube. At the other facility, it was noted that the PEG tube had was not fully in place. The patient did have CT of the chest abdomen pelvis at the other facility, which did show approximately 3 x 8 cm fluid collection in the abdominal wall, which was concerning for possible infection. I before being transferred from the other facility they did place a 14-S[place] Torres catheter to maintain the tract. Additional history reveals PEG tube placement here by Dr. Chow in January 2020. Patient not having any reported fevers, vomiting, change in bowel movements, or other symptoms. Labs at the other facility revealed white blood cell count 8900. There was an elevated BUN to creatinine ratio suggestive of mild dehydration. Lactic acid borderline at 2.2. Patient did receive dose of vancomycin and IV fluids. -: unknown Location: abdomen - Related Data Home Medications Medication Instructions Recorded Confirmed Amiodarone [Cordarone] 200 mg PEG/G-TUBE DAILY@0700 02/12/20 11/01/20 polyethylene glycoL 3350 [Miralax] 17 gm PEG/G-TUBE DAILY@0700 07/19/20 11/01/20 Regulate Powder 15 ml PEG/G-TUBE DAILY@0700 11/01/20 11/01/20 Saliva Stimulant Agents Comb.3 1 spray MUCOUS MEM 11/01/20 11/01/20 [Biotene Moisturizing Mouth] TID@0700,1700,2100 Valproic Acid Oral Soln [Depakene 375 mg PEG/G-TUBE BID@0700,209911/01/20 11/01/20 Syrup] levETIRAcetam ORAL SOLN [Keppra 500 mg PEG/G-TUBE BID@0700,2100 11/01/20 11/01/20 Oral Soln] Previous Rx's Medication Instructions Recorded Acetaminophen Tab [Tylenol] 650 mg PO Q4H PRN tab 11/06/20 Benztropine Mesylate [Cogentin] 0.5 mg PO BID@0700,2100 30 Days 11/06/20 #60 tab Cephalexin [Keflex] 500 mg PO Q8HR 5 Days #15 cap 11/06/20 LORazepam [Ativan] 0.5 mg PEG/G-TUBE 11/06/20 TID@1200,1600,2100 #6 tab Magnesium Hydroxide [Milk of 2,400 mg PO DAILY PRN ml 11/06/20 Magnesia Concentrate] Na Phos,M-B/Na Phos,Di-Ba [Fleet 133 ml RECTAL DAILY PRN enema 11/06/20 Adult] risperiDONE [RisperDAL] 2 mg PEG/G-TUBE DAILY@0700 #10 tab 11/06/20 Allergies Allergy/AdvReac Type Severity Reaction Status Date / Time quetiapine Allergy Unknown Unknown Verified 11/01/20 10:45 lithium Allergy Unknown Verified 11/01/20 10:45 topiramate [From Topamax] Allergy Unknown Verified 11/01/20 10:45 Review of Systems ROS Statement: Those systems with pertinent positive or pertinent negative responses have been documented in the HPI. ROS Other: All systems not noted in ROS Statement are negative. Limitations: ROS unobtainable due to patients medical condition (Moderate speech impairment) Constitutional: Denies: fever Respiratory: Denies: cough, dyspnea Cardiovascular: Denies: syncope Gastrointestinal: Reports: constipation. Denies: abdominal pain, vomiting, diarrhea Genitourinary: Denies: hematuria Skin: Denies: rash Past Medical History Past Medical History: Asthma, COPD, Hearing Disorder / Deafness, Hyperlipidemia, Pneumonia, Seizure Disorder, Sleep Apnea/CPAP/BIPAP, Syncope, Vascular Disorder Additional Past Medical History / Comment(s): Recent bowel obstruction with colostomy and then reversal 08/02/20, constipation, cognitive delay/mentally challenged, bronchitis, dysphagia/has peg tube to supplement, pt has had previous aspiration pneumonia and staff at prison states recently she has been having increased difficulty swallowing and have been utilizing peg tube more, tremors-sister states never determined cause, incontinent or urine and stool, normally walks with assist of one but not lately-too difficult, MELLY with no cpap but was wearing oxygen at 3L/NC until recently-it was dc/d, mild sensorineural bilateral hearing loss, sister states pt has hx of something ?cyst pericardial/R aortic arch, venous insufficiency, sister unsure if pt has ever had a seizure, L arm contractured, bilateral feet hammer toes, anemia, pancytopenia. History of Any Multi-Drug Resistant Organisms: None Reported Past Surgical History: Orthopedic Surgery Additional Past Surgical History / Comment(s): Peg tube, colectomy with ostomy placement, 08/02/20 reversal of colostomy; salvary gland left side removed, fx elbow surgery. Past Anesthesia/Blood Transfusion Reactions: No Reported Reaction Additional Past Anesthesia/Blood Transfusion Reaction / Comment(s): per [id number] hx of post-op reaction that she is aware of. Past Psychological History: Bipolar, Depression, Schizophrenia Smoking Status: Never smoker Past Alcohol Use History: None Reported Past Drug Use History: None Reported - Past Family History Mother Family Medical History: Vascular Disorder Additional Family Medical History / Comment(s): Mother of a ruptured brain aneurysm in her 50s. Father Family Medical History: Coronary Artery Disease (CAD), Diabetes Mellitus Additional Family Medical History / Comment(s): Father lived to be 92 yrs old. He had CABG General Exam Limitations: no limitations General appearance: alert, in no apparent distress Head exam: Present: atraumatic, normocephalic Eye exam: Present: normal appearance. Absent: scleral icterus, conjunctival injection ENT exam: Present: mucous membranes dry Respiratory exam: Present: normal lung sounds bilaterally. Absent: respiratory distress, wheezes, rales, rhonchi, stridor Cardiovascular Exam: Present: regular rate, normal rhythm, normal heart sounds. Absent: systolic murmur, diastolic murmur, rubs, gallop GI/Abdominal exam: Present: soft, other (There is a 14-[place] Torres catheter wh ich is been placed in the PEG tube tract. There is some local erythema that appears to be more likely to be chemical irritation then cellulitis at this point.). Absent: distended, tenderness, guarding, rebound, rigid, mass Extremities exam: Present: normal inspection, normal capillary refill. Absent: pedal edema, calf tenderness Neurological exam: Present: alert Skin exam: Present: warm, dry, intact, normal color, erythema (Adjacent to PEG tube). Absent: rash Course Vital Signs 11/01/20 11/01/20 11/01/20 03:50 06:00 10:49 Temperature 98.1 F Pulse Rate 64 74 78 Respiratory 16 18 Rate Blood Pressure 143/86 113/87 O2 Sat by Pulse 98 98 Oximetry 11/01/20 11/01/20 11/01/20 11:37 13:48 14:17 Temperature 98.7 F 98.1 F Pulse Rate 71 60 Respiratory 20 20 Rate Blood Pressure 113/59 O2 Sat by Pulse 97 99 Oximetry Medical Decision Making - Medical Decision Making Case is discussed with Dr. Booker as he is covering surgery tonight. We will admit the patient under the medical service with surgical consult to reevaluate the PEG tube. At this point there is questionable cellulitis surrounding the insertion point. We'll continue antibiotics. - Lab Data Result diagrams: 11/02/20 08:30 11/04/20 09:28 Lab Results 11/02/20 11/02/20 11/02/20 Range/Units 08:30 08:30 19:24 WBC 4.6 (3.8-10.6) k/uL RBC 3.64 L (3.80-5.40) m/uL Hgb 12.5 (11.4-16.0) gm/dL Hct 36.8 (34.0-46.0) % MCV 101.2 H (80.0-100.0) fL MCH 34.4 (25.0-35.0) pg MCHC 34.0 (31.0-37.0) g/dL RDW 12.0 (11.5-15.5) % Plt Count 174 (150-450) k/uL MPV 8.0 Sodium 140 (137-145) mmol/L Potassium 4.0 (3.5-5.1) mmol/L Chloride 109 H (98-107) mmol/L Carbon Dioxide 24 (22-30) mmol/L Anion Gap 7 mmol/L BUN 17 (7-17) mg/dL Creatinine 0.53 (0.52-1.04) mg/dL Est GFR (CKD-EPI)AfAm >90 (>60 ml/min/1.73 sqM) Est GFR (CKD-EPI)NonAf >90 (>60 ml/min/1.73 sqM) Glucose 83 (74-99) mg/dL Calcium 8.4 (8.4-10.2) mg/dL Urine Color Light Yellow Urine Appearance Clear (Clear) Urine pH 5.5 (5.0-8.0) Ur Specific Anderson 1.014 (1.001-1.035) Urine Protein Negative (Negative) Urine Glucose (UA) Negative (Negative) Urine Ketones 1+ H (Negative) Urine Blood Negative (Negative) Urine Nitrite Negative (Negative) Urine Bilirubin Negative (Negative) Urine Urobilinogen <2.0 (<2.0) mg/dL Ur Leukocyte Esterase Negative (Negative) 11/04/20 Range/Units 09:28 WBC (3.8-10.6) k/uL RBC (3.80-5.40) m/uL Hgb (11.4-16.0) gm/dL Hct (34.0-46.0) % MCV (80.0-100.0) fL MCH (25.0-35.0) pg MCHC (31.0-37.0) g/dL RDW (11.5-15.5) % Plt Count (150-450) k/uL MPV Sodium 139 (137-145) mmol/L Potassium 4.0 (3.5-5.1) mmol/L Chloride 108 H (98-107) mmol/L Carbon Dioxide 25 (22-30) mmol/L Anion Gap 6 mmol/L BUN 10 (7-17) mg/dL Creatinine 0.49 L (0.52-1.04) mg/dL Est GFR (CKD-EPI)AfAm >90 (>60 ml/min/1.73 sqM) Est GFR (CKD-EPI)NonAf >90 (>60 ml/min/1.73 sqM) Glucose 98 (74-99) mg/dL Calcium 8.4 (8.4-10.2) mg/dL Urine Color Urine Appearance (Clear) Urine pH (5.0-8.0) Ur Specific Anderson (1.001-1.035) Urine Protein (Negative) Urine Glucose (UA) (Negative) Urine Ketones (Negative) Urine Blood (Negative) Urine Nitrite (Negative) Urine Bilirubin (Negative) Urine Urobilinogen (<2.0) mg/dL Ur Leukocyte Esterase (Negative) Disposition Clinical Impression: PEG tube malfunction Narrative: Possible abdominal wall cellulitis Disposition: ADMITTED IP TO THIS [facility] Condition: Fair
[2020-11-01] MEDS: SODIUM CHLORIDE 0.9% 1,000 ML IV SCH ×2 (06:56→22:03)
[2020-11-01] MEDS ORDERED: levETIRAcetam 500 MG TAB PO SCH (09:00)
[2020-11-01] MEDS ORDERED: DIVALPROEX 250 MG TABLET.DR PO SCH (09:00)
[2020-11-01] MEDS ORDERED: [UNRECOGNIZED DRUG - OTHER] PEG/G-TUBE SCH (10:00)
[2020-11-01] MEDS: BENZTROPINE MESYLATE 0.5 MG TAB PO SCH ×2 (10:42→22:09)
[2020-11-01] MEDS: risperiDONE 1 MG TAB PO SCH (10:43)
[2020-11-01] MEDS: AMIODARONE 200 MG TAB PO SCH (10:43)
[2020-11-01] MEDS ORDERED: VALPROIC ACID ORAL SOLN 250 MG/5 ML CUP PO SCH (11:00)
[2020-11-01] MEDS ORDERED: DIVALPROEX SPRINKLE 125 MG CAP.SPRINK PO SCH (11:00)
--- NOTE | 2020-11-01 13:42 | P.GSCN ---
History of Present Illness Consult date: 11/01/20 History of present illness: CHIEF COMPLAINT: Malfunctioning PEG tube HISTORY OF PRESENT ILLNESS: This is a 60-year-old female with a known history of Cognitive delay, asthma, COPD, constipation, previous colostomy for fecal obstruction and had reversal of colostomy in July 2020. Patient had PEG tube placement on 02/14/[address] madden for protein calorie malnutrition and aspiration pneumonia. Patient was transferred to [facility] from an outside hospital. Patient hadn't taken to the hospital with concerns of possible infection at the PEG tube site. At the other facility they noted that the PEG tube site was not Torres in place patient had a computed tomography scan of the abdomen completed with results showing gastrostomy tube appears to most likely lie outside of the stomach along the anterior abdominal wall. Large amount of stool throughout the colon. Patient had no fevers or vomiting. Patient was seen and examined with Dr. Madden in the ER. Dr. Madden removed PEG tube in ER. PAST MEDICAL HISTORY: See list. PAST SURGICAL HISTORY: See list. MEDICATIONS: See list. ALLERGIES: See list. SOCIAL HISTORY: No illicit drug use. REVIEW OF SYSTEMS: CONSTITUTIONAL: Denies fever or chills. HEENT: Denies blurred vision, vision changes, or eye pain. Denies hemoptysis CARDIOVASCULAR: Denies chest pain or pressure. RESPIRATORY: No shortness of breath. GASTROINTESTINAL: See HPI for pertinent findings HEMATOLOGIC: Denies bleeding disorders. GENITOURINARY: Denies any blood in urine or increased urinary frequency. SKIN: Denies pruitis. Denies rash. PHYSICAL EXAM: VITAL SIGNS: Reviewed GENERAL: Well-developed in no acute distress. HEENT: No sclera icterus. Extraocular movements grossly intact. Moist buccal mucosa. Head is atraumatic, normocephalic. No nasal drainage. ABDOMEN: Soft. Nondistended. There is erythema noted at the top of PEG tube site. No drainage. NEUROLOGIC: Patient is awake and alert. Nonverbal. LABORATORY DATA: WBC at outside hospital 8.9 IMAGING: computed tomography scan of the abdomen completed with results showing gastrostomy tube appears to most likely lie outside of the stomach along the anterior abdominal wall. Large amount of stool throughout the colon. ASSESSMENT: 1. Malfunctioning PEG tube. Dr. Madden removed PEG tube in ER 2. PEG tube site cellulitis PLAN: -Patient is scheduled for PEG tube replacement on Wednesday11/04/[address] Madden -Start Ancef 1 g IV every 8 hours for PEG tube site cellulitis -Patient can be started back on her home diet and take her home medications Thank you for this consultation Physician Train Starter note has been reviewed by physician. Signing provider agrees with the documented findings, assessment, and plan of care. Past Medical History Past Medical History: Asthma, COPD, Hearing Disorder / Deafness, Hyperlipidemia, Pneumonia, Seizure Disorder, Sleep Apnea/CPAP/BIPAP, Syncope, Vascular Disorder Additional Past Medical History / Comment(s): Recent bowel obstruction with colostomy and then reversal 08/02/20, constipation, cognitive delay/mentally challenged, bronchitis, dysphagia/has peg tube to supplement, pt has had previous aspiration pneumonia and staff at residential states recently she has been having increased difficulty swallowing and have been utilizing peg tube more, tremors-sister states never determined cause, incontinent or urine and stool, normally walks with assist of one but not lately-too difficult, MELLY with no cpap but was wearing oxygen at 3L/NC until recently-it was dc/d, mild sensorineural bilateral hearing loss, sister states pt has hx of something ?cyst pericardial/R aortic arch, venous insufficiency, sister unsure if pt has ever had a seizure, L arm contractured, bilateral feet hammer toes, anemia, pancytopenia. History of Any Multi-Drug Resistant Organisms: None Reported Past Surgical History: Orthopedic Surgery Additional Past Surgical History / Comment(s): Peg tube, colectomy with ostomy placement, 08/02/20 reversal of colostomy; salvary gland left side removed, fx elbow surgery. Past Anesthesia/Blood Transfusion Reactions: No Reported Reaction Additional Past Anesthesia/Blood Transfusion Reaction / Comm: per [id number] hx of post-op reaction that she is aware of. Past Psychological History: Bipolar, Depression, Schizophrenia Smoking Status: Never smoker Past Alcohol Use History: None Reported Past Drug Use History: None Reported - Past Family History Mother Family Medical History: Vascular Disorder Additional Family Medical History / Comment(s): Mother of a ruptured brain aneurysm in her 50s. Father Family Medical History: Coronary Artery Disease (CAD), Diabetes Mellitus Additional Family Medical History / Comment(s): Father lived to be 92 yrs old. He had CABG Medications and Allergies Home Medications Medication Instructions Recorded Confirmed Type Amiodarone [Cordarone] 200 mg PEG/G-TUBE DAILY@0700 02/12/20 11/01/20 History polyethylene glycoL 3350 [Miralax] 17 gm PEG/G-TUBE DAILY@0700 07/19/20 11/01/20 History LORazepam [Ativan] 0.5 mg PEG/G-TUBE 08/02/20 11/01/20 History TID@1200,1600,2100 Regulate Powder 15 ml PEG/G-TUBE DAILY@0700 11/01/20 11/01/20 History Saliva Stimulant Agents Comb.3 1 spray MUCOUS MEM 11/01/20 11/01/20 History [Biotene Moisturizing Mouth] TID@0700,1700,2100 Valproic Acid Oral Soln [Depakene 375 mg PEG/G-TUBE BID@0700,2100 11/01/20 11/01/20 History Syrup] levETIRAcetam ORAL SOLN [Keppra 500 mg PEG/G-TUBE BID@0700,2100 11/01/20 11/01/20 History Oral Soln] risperiDONE [RisperDAL] 2 mg PEG/G-TUBE DAILY@0700 11/01/20 11/01/20 History Allergies Allergy/AdvReac Type Severity Reaction Status Date / Time quetiapine Allergy Unknown Unknown Verified 11/01/20 10:45 lithium Allergy Unknown Verified 11/01/20 10:45 topiramate [From Topamax] Allergy Unknown Verified 11/01/20 10:45 Surgical - Exam Vital Signs Temp Pulse Resp BP Pulse Ox 98.1 F 64 16 143/86 98 11/01/20 03:50 11/01/20 03:50 11/01/20 03:50 11/01/20 03:50 11/01/20 03:50
[2020-11-01] MEDS: LORazepam 0.5 MG TAB PO SCH ×2 (13:50→16:35)
--- NOTE | 2020-11-01 14:17 | P.HPIM ---
History of Present Illness 60-year-old woman who is transferred here from outside hospital. The patient had been taken there with concern of possible infection at the site of her peg tube. At the other facility, it was noted that the PEG tube had was not fully in place. The patient did have CT of the chest abdomen pelvis at the other facility, which did show approximately 3 x 8 cm fluid collection in the abdominal wall, which was concerning for possible infection. I before being transferred from the other facility they did place a 14-[place] Torres catheter to maintain the tract. Additional history reveals PEG tube placement here by Dr. Chow in January 2020. Patient not having any reported fevers, vomiting, change in bowel movements, or other symptoms. Labs at the other facility revealed white blood cell count 8900. There was an elevated BUN to creatinine ratio suggestive of mild dehydration. Lactic acid borderline at 2.2. Patient did receive dose of vancomycin and IV fluids. Patient does have history of possible palsy chronically debilitated had history of constipation and aspiration pneumonias in the past because of which patient had a PEG tube that was placed recently. Patient does have PEG tube site infection and cellulitis for which patient was started on antibiotics and PEG tube was removed. Review of Systems Unable to obtain due to her clinical condition Past Medical History Past Medical History: Asthma, COPD, Hearing Disorder / Deafness, Hyperlipidemia, Pneumonia, Seizure Disorder, Sleep Apnea/CPAP/BIPAP, Syncope, Vascular Disorder Additional Past Medical History / Comment(s): Recent bowel obstruction with colostomy and then reversal 08/02/20, constipation, cognitive delay/mentally challenged, bronchitis, dysphagia/has peg tube to supplement, pt has had previous aspiration pneumonia and staff at nursing home states recently she has been having increased difficulty swallowing and have been utilizing peg tube more, tremors-sister states never determined cause, incontinent or urine and stool, normally walks with assist of one but not lately-too difficult, MELLY with no cpap but was wearing oxygen at 3L/NC until recently-it was dc/d, mild sensorineural bilateral hearing loss, sister states pt has hx of something ?cyst pericardial/R aortic arch, venous insufficiency, sister unsure if pt has ever had a seizure, L arm contractured, bilateral feet hammer toes, anemia, pancytopenia. History of Any Multi-Drug Resistant Organisms: None Reported Past Surgical History: Orthopedic Surgery Additional Past Surgical History / Comment(s): Peg tube, colectomy with ostomy placement, 08/02/20 reversal of colostomy; salvary gland left side removed, fx elbow surgery. Past Anesthesia/Blood Transfusion Reactions: No Reported Reaction Additional Past Anesthesia/Blood Transfusion Reaction / Comment(s): per [id number] hx of post-op reaction that she is aware of. Past Psychological History: Bipolar, Depression, Schizophrenia Smoking Status: Never smoker Past Alcohol Use History: None Reported Past Drug Use History: None Reported - Past Family History Mother Family Medical History: Vascular Disorder Additional Family Medical History / Comment(s): Mother of a ruptured brain aneurysm in her 50s. Father Family Medical History: Coronary Artery Disease (CAD), Diabetes Mellitus Additional Family Medical History / Comment(s): Father lived to be 92 yrs old. He had CABG Medications and Allergies Home Medications Medication Instructions Recorded Confirmed Type Amiodarone [Cordarone] 200 mg PEG/G-TUBE DAILY@0700 02/12/20 11/01/20 History polyethylene glycoL 3350 [Miralax] 17 gm PEG/G-TUBE DAILY@0700 07/19/20 11/01/20 History LORazepam [Ativan] 0.5 mg PEG/G-TUBE 08/02/20 11/01/20 History TID@1200,1600,2100 Regulate Powder 15 ml PEG/G-TUBE DAILY@0700 11/01/20 11/01/20 History Saliva Stimulant Agents Comb.3 1 spray MUCOUS MEM 11/01/20 11/01/20 History [Biotene Moisturizing Mouth] TID@0700,1700,2100 Valproic Acid Oral Soln [Depakene 375 mg PEG/G-TUBE BID@0700,2100 11/01/20 History Syrup] levETIRAcetam ORAL SOLN [Keppra 500 mg PEG/G-TUBE BID@0700,2100 11/01/20 11/01/20 History Oral Soln] risperiDONE [RisperDAL] 2 mg PEG/G-TUBE DAILY@0700 11/01/20 11/01/20 History Allergies Allergy/AdvReac Type Severity Reaction Status Date / Time quetiapine Allergy Unknown Unknown Verified 11/01/20 10:45 lithium Allergy Unknown Verified 11/01/20 10:45 topiramate [From Topamax] Allergy Unknown Verified 11/01/20 10:45 Physical Exam Vitals: Vital Signs Temp Pulse Resp BP Pulse Ox 11/01/20 13:48 60 20 113/59 99 11/01/20 11:37 98.7 F 71 20 97 11/01/20 10:49 78 11/01/20 06:00 74 18 113/87 98 11/01/20 03:50 98.1 F 64 16 143/86 98 Intake and Output 10/31/20 11/01/20 11/01/20 22:59 06:59 14:59 Other: Weight 54.431 kg PHYSICAL EXAMINATION: GENERAL: Patient is mostly nonverbal with contractors be diaphoretic HEENT: Pupils are round and equally reacting to light. EOMI. No scleral icterus. No conjunctival pallor. Normocephalic, atraumatic. No pharyngeal erythema. No thyromegaly. CARDIOVASCULAR: S1 and S2 present. No murmurs, rubs, or gallops. PULMONARY: Unable to assess ABDOMEN: Soft, nontender, nondistended, normoactive bowel sounds. No palpable organomegaly. Cellulitis of the PEG tube site area MUSCULOSKELETAL: No joint swelling or deformity. EXTREMITIES: No cyanosis, clubbing, or pedal edema. NEUROLOGICAL: Gross neurological examination did not reveal any focal deficits. SKIN: Cellulitis as mentioned above Assessment and Plan Plan: Malfunctioning and displaced PEG tube along with infection at the insertion site. PEG tube was removed and patient was started on ceftezolin for cellulitis. Patient is on prophylactic antiseizure medications which will be switched to IV. -Cerebral palsy: Supportive care, continue antipsychotic medications. -Hyperlipidemia -Seizure disorder -Chronic medical debility -DVT prophylaxis with heparin subcutaneous
[2020-11-01] MEDS ORDERED: VALPROATE SODIUM 250 MG in SODIUM CHLORIDE 0.9% 100 ML IVPB SCH (16:00)
[2020-11-01] MEDS: LORazepam 2 MG/ML INJ IV SCH ×2 (19:13→21:55)
[2020-11-01] MEDS ORDERED: LORazepam 1 MG TAB PO SCH (21:00)
[2020-11-01] MEDS: HEPARIN SODIUM,PORCINE 5,000 UNIT/ML 1 ML VIAL SQ SCH (21:55)
[2020-11-01] MEDS: levETIRAcetam IV 500 MG in SODIUM CHLORIDE 0.9% 100 ML IVPB SCH (22:09)
[2020-11-01] MEDS: polyethylene glycoL 3350 17 GM POWD.PACK PO SCH (22:09)
[2020-11-02] MEDS: SODIUM CHLORIDE 0.9% 1,000 ML IV SCH ×3 (00:26→22:07)
[2020-11-02] MEDS: BENZTROPINE MESYLATE 0.5 MG TAB PO SCH ×2 (06:42→22:08)
[2020-11-02] MEDS: AMIODARONE 200 MG TAB PO SCH (06:42)
[2020-11-02 08:44] LABS: HCT 36.8 % (34.0-46.0); HGB 12.5 gm/dL (11.4-16.0); MCH 34.4 pg (25.0-35.0); MCV 101.2 fL (80.0-100.0); Platelet Count 174 k/uL (150-450); RBC 3.64 m/uL (3.80-5.40); WBC 4.6 k/uL (3.8-10.6)
[2020-11-02 08:57] LABS: African American GFR (CKD) >90 (>60 ml/min/1.73 sqM); Anion Gap 7 mmol/L; Blood Urea Nitrogen 17 mg/dL (7-17); Calcium 8.4 mg/dL (8.4-10.2); Carbon Dioxide 24 mmol/L (22-30); Chloride 109 mmol/L (98-107); Glucose 83 mg/dL (74-99); Non-African American GFR(CKD) >90 (>60 ml/min/1.73 sqM); Sodium 140 mmol/L (137-145)
[2020-11-02] MEDS: LORazepam 2 MG/ML INJ IV SCH ×3 (09:18→22:19)
[2020-11-02] MEDS: HEPARIN SODIUM,PORCINE 5,000 UNIT/ML 1 ML VIAL SQ SCH ×2 (09:19→22:08)
[2020-11-02] MEDS: levETIRAcetam IV 500 MG in SODIUM CHLORIDE 0.9% 100 ML IVPB SCH ×2 (09:19→22:07)
--- NOTE | 2020-11-02 12:04 | P.PN ---
Subjective 60-year-old woman who is transferred here from outside hospital. The patient had been taken there with concern of possible infection at the site of her peg tube. At the other facility, it was noted that the PEG tube had was not fully in place. The patient did have CT of the chest abdomen pelvis at the other facility, which did show approximately 3 x 8 cm fluid collection in the abdominal wall, which was concerning for possible infection. I before being transferred from the other facility they did place a 14-Nigerien Torres catheter to maintain the tract. Additional history reveals PEG tube placement here by Dr. Chow in January 2020. Patient not having any reported fevers, vomiting, change in bowel movements, or other symptoms. Labs at the other facility revealed white blood cell count 8900. There was an elevated BUN to creatinine ratio suggestive of mild dehydration. Lactic acid borderline at 2.2. Patient did receive dose of vancomycin and IV fluids. Patient does have history of possible palsy chronically debilitated had history of constipation and aspiration pneumonias in the past because of which patient had a PEG tube that was placed recently. Patient does have PEG tube site infection and cellulitis for which patient was started on antibiotics and PEG tube was removed. 11/02/2020 Patient is on Ativan because of except for total side effects from Risperdal as in nursing staff did go into her crushed pills of benztropine as well as Risperdal. Patient will undergo PEG tube placement on Wednesday continue with cef tezole and. Review of systems: Unable to obtain due to her clinical condition All inpatient medications were reviewed and appropriate changes in these medications as dictated in the interval history and assessment and plan. Objective - Vital Signs Vital signs: Vital Signs Temp 98.6 F 11/02/20 09:00 Pulse 84 11/02/20 09:00 Resp 16 11/02/20 09:00 BP 140/70 11/02/20 09:00 Pulse Ox 96 11/02/20 09:00 Intake & Output 11/01/20 11/02/20 11/02/20 18:59 06:59 18:59 Intake Total 1000 0 Balance 1000 0 Weight 54.431 kg Intake: Intake, IV Titration 1000 Amount Sodium Chloride 0.9% 1, 1000 000 ml @ 100 mls/hr IV . Q10H [facility] Rx#:[id number] Oral 0 0 Other: Voiding Method Diaper Incontinent # Voids 1 1 1 # Bowel Movements 1 1 1 - Exam PHYSICAL EXAMINATION: GENERAL: Patient is mostly nonverbal with contractors , sleepy and drowsy HEENT: Pupils are round and equally reacting to light. EOMI. No scleral icterus. No conjunctival pallor. Normocephalic, atraumatic. No pharyngeal erythema. No th yromegaly. CARDIOVASCULAR: S1 and S2 present. No murmurs, rubs, or gallops. PULMONARY: Unable to assess ABDOMEN: Soft, nontender, nondistended, normoactive bowel sounds. No palpable organomegaly. Cellulitis of the PEG tube site area, it appears to have some improvement MUSCULOSKELETAL: No joint swelling or deformity. EXTREMITIES: No cyanosis, clubbing, or pedal edema. NEUROLOGICAL: Gross neurological examination did not reveal any focal deficits. SKIN: Cellulitis as mentioned above - Labs CBC & Chem 7: 11/02/20 08:30 11/02/20 08:30 Labs: Abnormal Lab Results - Last 24 Hours (Table) 11/02/20 11/02/20 Range/Units 08:30 08:30 RBC 3.64 L (3.80-5.40) m/uL MCV 101.2 H (80.0-100.0) fL Chloride 109 H (98-107) mmol/L Assessment and Plan Plan: Malfunctioning and displaced PEG tube along with infection at the insertion site. PEG tube was removed and patient was started on ceftezolin for cellulitis. Patient is on prophylactic antiseizure medications which will be switched to IV. -Cerebral palsy: Supportive care, continue antipsychotic medications. -Hyperlipidemia -Seizure disorder -Chronic medical debility -DVT prophylaxis with heparin subcutaneous
--- NOTE | 2020-11-02 12:48 | P.PN ---
Subjective Progress Note Date: 11/02/20 CHIEF COMPLAINT: Tube malfunction HISTORY OF PRESENT ILLNESS: The patient is a 61-year-old female who presents with PEG tube malfunction with erosion through the abdominal wall. She is dependent on tube feeds for nutrition. She is aphasic with movement disorder. No new complaints. ROS: No fevers or chills. No shortness of breath. No reports of chest pain. PHYSICAL EXAM: VITAL SIGNS: Reviewed CONSTITUTIONAL: Well developed and in no acute distress. EYES: Conjuctivae without sclera icterus. Extraocular movements grossly intact. HEAD, EARS, NOSE, THROAT: Moist buccal mucosa. Head is atraumatic, normocephalic. Hears conversational speech. No nasal drainage. NECK: Supple. No thyroidomegaly. RESPIRATORY: Non-labored respirations and equal bilateral excursions. CARDIOVASCULAR: Palpable 2+ radial pulses. Regular rate. Regular rhythm. ABDOMEN: No peritonitis MUSCULOSKELETAL: No gross deformity of the lower extremities noted. No clubbing. No cyanosis. SKIN: Good skin turgor. Well perfused. NEUROLOGIC: No focal or lateralizing signs. Has resting tremors CLINICAL LABS: White blood cell count normal at 4.6. ASSESSMENT: 1. Gastrostomy tube malfunction PLAN: 1. Recommend replacement of gastrostomy tube for malfunction 2. IV fluid hydration in the interim Objective - Vital Signs Vital signs: Vital Signs Temp 98.6 F 11/02/20 09:00 Pulse 84 11/02/20 09:00 Resp 16 11/02/20 09:00 BP 140/70 11/02/20 09:00 Pulse Ox 96 11/02/20 09:00 Intake & Output 11/01/20 11/02/20 11/02/20 18:59 06:59 18:59 Intake Total 1000 0 Balance 1000 0 Weight 54.431 kg Intake: Intake, IV Titration 1000 Amount Sodium Chloride 0.9% 1, 1000 000 ml @ 100 mls/hr IV . Q10H [facility] Rx#:[id number] Oral 0 0 Other: Voiding Method Diaper Incontinent # Voids 1 1 1 # Bowel Movements 1 1 1 - Labs CBC & Chem 7: 11/02/20 08:30 11/02/20 08:30 Labs: Abnormal Lab Results - Last 24 Hours (Table) 11/02/20 11/02/20 Range/Units 08:30 08:30 RBC 3.64 L (3.80-5.40) m/uL MCV 101.2 H (80.0-100.0) fL Chloride 109 H (98-107) mmol/L Assessment and Plan (1) PEG tube malfunction Current Visit: Yes Status: Acute Code(s): K94.23 - GASTROSTOMY MALFUNCTION SNOMED Code(s): 755569943 (2) Dysphagia Current Visit: No Status: Acute Code(s): R13.10 - DYSPHAGIA, UNSPECIFIED SNOMED Code(s): 58505128
[2020-11-02] MEDS: risperiDONE 1 MG TAB PO SCH (14:35)
[2020-11-02] MEDS ORDERED: LORazepam 2 MG/ML INJ IV STA ×2 (14:38)
[2020-11-02 19:42] LABS: Appearance,Urine Clear (Clear); Bilirubin,Urine Negative (Negative); Blood,Urine Negative (Negative); Color,Urine Light Yellow; Glucose,Urine (UA) Negative (Negative); Ketones,Urine 1+ (Negative); Leukocyte Esterase,Urine Negative (Negative); Nitrite,Urine Negative (Negative); PH, Urine 5.5 (5.0-8.0); Protein,Urine Negative (Negative); Specific Gravity,Urine 1.014 (1.001-1.035); Urobilinogen,Urine <2.0 mg/dL (<2.0)
[2020-11-02] MEDS: polyethylene glycoL 3350 17 GM POWD.PACK PO SCH (22:07)
[2020-11-03] MEDS: HEPARIN SODIUM,PORCINE 5,000 UNIT/ML 1 ML VIAL SQ SCH ×2 (07:49→19:47)
[2020-11-03] MEDS: risperiDONE 1 MG TAB PO SCH (07:50)
[2020-11-03] MEDS: BENZTROPINE MESYLATE 0.5 MG TAB PO SCH ×2 (07:50→19:47)
[2020-11-03] MEDS: AMIODARONE 200 MG TAB PO SCH (07:50)
[2020-11-03] MEDS: levETIRAcetam IV 500 MG in SODIUM CHLORIDE 0.9% 100 ML IVPB SCH ×2 (07:50→19:47)
[2020-11-03] MEDS: LORazepam 2 MG/ML INJ IV SCH ×2 (09:03→22:07)
[2020-11-03] MEDS: SODIUM CHLORIDE 0.9% 1,000 ML IV SCH ×2 (09:05→19:47)
--- NOTE | 2020-11-03 11:57 | P.PN ---
Subjective Progress Note Date: 11/03/20 CHIEF COMPLAINT: Tube malfunction HISTORY OF PRESENT ILLNESS: The patient is a 61-year-old female who presents with PEG tube malfunction with erosion through the abdominal wall. She is resting comfortably. No new fevers, chills or abdominal pain. ROS: No fevers or chills. No shortness of breath. No reports of chest pain. PHYSICAL EXAM: VITAL SIGNS: Reviewed CONSTITUTIONAL: Well developed and in no acute distress. EYES: Conjuctivae without sclera icterus. Extraocular movements grossly intact. HEAD, EARS, NOSE, THROAT: Moist buccal mucosa. Head is atraumatic, normocephalic. Hears conversational speech. No nasal drainage. NECK: Supple. No thyroidomegaly. RESPIRATORY: Non-labored respirations and equal bilateral excursions. CARDIOVASCULAR: Palpable 2+ radial pulses. ABDOMEN: No peritonitis. G-tube with erosion. MUSCULOSKELETAL: No gross deformity of the lower extremities noted. No clubbing. No cyanosis. SKIN: Good skin turgor. Well perfused. NEUROLOGIC: No focal or lateralizing signs. CLINICAL LABS: No new labs ASSESSMENT: 1. Gastrostomy tube malfunction PLAN: 1. PEG tube replacement tomorrow 2. NPO after midnight. Objective - Vital Signs Vital signs: Vital Signs Temp 99.6 F 11/03/20 10:56 Pulse 61 11/03/20 10:56 Resp 17 11/03/20 10:56 BP 156/80 11/03/20 10:56 Pulse Ox 94 L 11/03/20 10:56 Intake & Output 11/02/20 11/03/20 11/03/20 18:59 06:59 18:59 Intake Total 0 120 Balance 0 120 Intake: Oral 0 120 Other: Voiding Method Diaper Diaper Diaper Incontinent Incontinent Incontinent # Voids 1 3 # Bowel Movements 1 - Labs CBC & Chem 7: 11/02/20 08:30 11/02/20 08:30 Labs: Abnormal Lab Results - Last 24 Hours (Table) 11/02/20 Range/Units 19:24 Urine Ketones 1+ H (Negative) Assessment and Plan (1) PEG tube malfunction Current Visit: Yes Status: Acute Code(s): K94.23 - GASTROSTOMY MALFUNCTION SNOMED Code(s): 005969420 (2) Dysphagia Current Visit: No Status: Acute Code(s): R13.10 - DYSPHAGIA, UNSPECIFIED SNOMED Code(s): 54369266
--- NOTE | 2020-11-03 12:13 | P.PN ---
Subjective 60-year-old woman who is transferred here from outside hospital. The patient had been taken there with concern of possible infection at the site of her peg tube. At the other facility, it was noted that the PEG tube had was not fully in place. The patient did have CT of the chest abdomen pelvis at the other facility, which did show approximately 3 x 8 cm fluid collection in the abdominal wall, which was concerning for possible infection. I before being transferred from the other facility they did place a 14-[place] Torres catheter to maintain the tract. Additional history reveals PEG tube placement here by Dr. Chow in January 2020. Patient not having any reported fevers, vomiting, change in bowel movements, or other symptoms. Labs at the other facility revealed white blood cell count 8900. There was an elevated BUN to creatinine ratio suggestive of mild dehydration. Lactic acid borderline at 2.2. Patient did receive dose of vancomycin and IV fluids. Patient does have history of possible palsy chronically debilitated had history of constipation and aspiration pneumonias in the past because of which patient had a PEG tube that was placed recently. Patient does have PEG tube site infection and cellulitis for which patient was started on antibiotics and PEG tube was removed. 11/02/2020 Patient is on Ativan because of except for total side effects from Risperdal as in nursing staff did go into her crushed pills of benztropine as well as Risperdal. Patient will undergo PEG tube placement on Wednesday continue with cef azolin. 11/03/2020 no significant overnight events patient will be monitored for constipation. Review of systems: Unable to obtain due to her clinical condition All inpatient medications were reviewed and appropriate changes in these medications as dictated in the interval history and assessment and plan. Objective - Vital Signs Vital signs: Vital Signs Temp 99.6 F 11/03/20 10:56 Pulse 61 11/03/20 10:56 Resp 17 11/03/20 10:56 BP 156/80 11/03/20 10:56 Pulse Ox 94 L 11/03/20 10:56 Intake & Output 11/02/20 11/03/20 11/03/20 18:59 06:59 18:59 Intake Total 0 120 Balance 0 120 Intake: Oral 0 120 Other: Voiding Method Diaper Diaper Diaper Incontinent Incontinent Incontinent # Voids 1 3 # Bowel Movements 1 - Exam PHYSICAL EXAMINATION: GENERAL: Patient is mostly nonverbal with contractors , sleepy and drowsy HEENT: Pupils are round and equally reacting to light. EOMI. No scleral icterus. No conjunctival pallor. Normocephalic, atraumatic. No pharyngeal erythema. No thyromegaly. CARDIOVASCULAR: S1 and S2 present. No murmurs, rubs, or gallops. PULMONARY: Unable to assess ABDOMEN: Soft, nontender, nondistended, normoactive bowel sounds. No palpable organomegaly. Cellulitis of the PEG tube site area, it appears to have some improvement MUSCULOSKELETAL: No joint swelling or deformity. EXTREMITIES: No cyanosis, clubbing, or pedal edema. NEUROLOGICAL: Gross neurological examination did not reveal any focal deficits. SKIN: Cellulitis as mentioned above - Labs CBC & Chem 7: 11/02/20 08:30 11/02/20 08:30 Labs: Abnormal Lab Results - Last 24 Hours (Table) 11/02/20 Range/Units 19:24 Urine Ketones 1+ H (Negative) Assessment and Plan Plan: Malfunctioning and displaced PEG tube along with infection at the insertion site. PEG tube was removed and patient was started on ceftezolin for cellulitis. Patient is on prophylactic antiseizure medications which will be switched to IV.patient will undergo PEG tube insertion tomorrow -Cerebral palsy: Supportive care, continue antipsychotic medications. -Hyperlipidemia -Seizure disorder -Chronic medical debility -DVT prophylaxis with heparin subcutaneous
[2020-11-03] MEDS: polyethylene glycoL 3350 17 GM POWD.PACK PO SCH (19:47)
[2020-11-04] MEDS: LORazepam 2 MG/ML INJ IV SCH ×4 (01:13→20:42)
[2020-11-04] MEDS: HEPARIN SODIUM,PORCINE 5,000 UNIT/ML 1 ML VIAL SQ SCH ×2 (08:52→20:41)
[2020-11-04] MEDS: SODIUM CHLORIDE 0.9% 1,000 ML IV SCH ×3 (09:01→21:43)
[2020-11-04] MEDS: AMIODARONE 200 MG TAB PO SCH (09:02)
[2020-11-04 09:55] LABS: African American GFR (CKD) >90 (>60 ml/min/1.73 sqM); Anion Gap 6 mmol/L; Blood Urea Nitrogen 10 mg/dL (7-17); Calcium 8.4 mg/dL (8.4-10.2); Carbon Dioxide 25 mmol/L (22-30); Chloride 108 mmol/L (98-107); Glucose 98 mg/dL (74-99); Non-African American GFR(CKD) >90 (>60 ml/min/1.73 sqM); Sodium 139 mmol/L (137-145)
[2020-11-04] MEDS: levETIRAcetam IV 500 MG in SODIUM CHLORIDE 0.9% 100 ML IVPB SCH ×2 (10:52→20:42)
[2020-11-04] MEDS ORDERED: PROPOFOL 10 MG/ML 20 ML VIAL IV ONE (14:13)
[2020-11-04] MEDS ORDERED: IV FLUID CONTINUATION 1,000 ML IV ONE ×2 (14:13)
[2020-11-04] MEDS ORDERED: fentaNYL (PF) 50 MCG/ML 2 ML AMP ONE (14:13)
[2020-11-04] MEDS ORDERED: MIDAZOLAM 2 MG/2 ML VIAL ONE (14:13)
--- NOTE | 2020-11-04 14:50 | P.PN ---
Subjective 60-year-old woman who is transferred here from outside hospital. The patient had been taken there with concern of possible infection at the site of her peg tube. At the other facility, it was noted that the PEG tube had was not fully in place. The patient did have CT of the chest abdomen pelvis at the other facility, which did show approximately 3 x 8 cm fluid collection in the abdominal wall, which was concerning for possible infection. I before being transferred from the other facility they did place a 14-Malian Torres catheter to maintain the tract. Additional history reveals PEG tube placement here by Dr. Chow in January 2020. Patient not having any reported fevers, vomiting, change in bowel movements, or other symptoms. Labs at the other facility revealed white blood cell count 8900. There was an elevated BUN to creatinine ratio suggestive of mild dehydration. Lactic acid borderline at 2.2. Patient did receive dose of vancomycin and IV fluids. Patient does have history of possible palsy chronically debilitated had history of constipation and aspiration pneumonias in the past because of which patient had a PEG tube that was placed recently. Patient does have PEG tube site infection and cellulitis for which patient was started on antibiotics and PEG tube was removed. 11/02/2020 Patient is on Ativan because of except for total side effects from Risperdal as in nursing staff did go into her crushed pills of benztropine as well as Risperdal. Patient will undergo PEG tube placement on Wednesday continue with cef azolin. 11/03/2020 no significant overnight events patient will be monitored for constipation. 11/04/2020 Patient will undergo PEG tube placement. Patient is much more awake patient is following commands today. Patient gives answers with head nodding Review of systems: Unable to obtain due to her clinical condition All inpatient medications were reviewed and appropriate changes in these medic ations as dictated in the interval history and assessment and plan. Objective - Vital Signs Vital signs: Vital Signs Temp 98.6 F 11/04/20 11:00 Pulse 70 11/04/20 11:00 Resp 18 11/04/20 11:00 BP 169/77 11/04/20 11:00 Pulse Ox 97 11/04/20 11:00 Intake & Output 11/03/20 11/04/20 11/04/20 18:59 06:59 18:59 Intake Total 900 100 Balance 900 100 Intake: IV 100 Intake, IV Titration 900 Amount Sodium Chloride 0.9% 1, 800 000 ml @ 100 mls/hr IV . Q10H [facility] Rx#:[id number] ceFAZolin 1,000 mg In 100 Sodium Chloride 0.9% 50 ml @ 100 mls/hr IVPB Q8HR [facility] Rx#:[id number] Oral 0 Other: Voiding Method Diaper Diaper Diaper Incontinent Incontinent Incontinent # Voids 2 2 # Bowel Movements 1 - Exam PHYSICAL EXAMINATION: GENERAL: Patient is alert and able to assess orientation. HEENT: Pupils are round and equally reacting to light. EOMI. No scleral icterus. No conjunctival pallor. Normocephalic, atraumatic. No pharyngeal erythema. No thyromegaly. CARDIOVASCULAR: S1 and S2 present. No murmurs, rubs, or gallops. PULMONARY: Clear to auscultation ABDOMEN: Soft, nontender, nondistended, normoactive bowel sounds. No palpable organomegaly. Cellulitis of the PEG tube site area, it appears to have some improvement MUSCULOSKELETAL: No joint swelling or deformity. EXTREMITIES: No cyanosis, clubbing, or pedal edema. NEUROLOGICAL: Gross neurological examination did not reveal any focal deficits. SKIN: Cellulitis as mentioned above - Labs CBC & Chem 7: 11/02/20 08:30 11/04/20 09:28 Labs: Abnormal Lab Results - Last 24 Hours (Table) 11/04/20 Range/Units 09:28 Chloride 108 H (98-107) mmol/L Creatinine 0.49 L (0.52-1.04) mg/dL Assessment and Plan Plan: Malfunctioning and displaced PEG tube along with infection at the insertion site. PEG tube was removed and patient was started on cefazolin for cellulitis. Patient is on prophylactic antiseizure medications which will be switched to IV.patient will undergo PEG tube insertion today -Cerebral palsy: Supportive care, continue antipsychotic medications. -Hyperlipidemia -Seizure disorder -Chronic medical debility -DVT prophylaxis with heparin subcutaneous
[2020-11-04] MEDS: risperiDONE 1 MG TAB PO SCH (15:15)
[2020-11-04] MEDS: BENZTROPINE MESYLATE 0.5 MG TAB PO SCH ×2 (15:15→20:41)
[2020-11-04] MEDS: polyethylene glycoL 3350 17 GM POWD.PACK PO SCH (20:42)
[2020-11-05] MEDS: BENZTROPINE MESYLATE 0.5 MG TAB PO SCH ×2 (07:45→20:15)
[2020-11-05] MEDS: risperiDONE 1 MG TAB PO SCH (07:45)
[2020-11-05] MEDS: LORazepam 2 MG/ML INJ IV SCH ×3 (07:45→20:17)
[2020-11-05] MEDS: AMIODARONE 200 MG TAB PO SCH (07:45)
[2020-11-05] MEDS: levETIRAcetam IV 500 MG in SODIUM CHLORIDE 0.9% 100 ML IVPB SCH ×2 (07:46→20:22)
[2020-11-05] MEDS: HEPARIN SODIUM,PORCINE 5,000 UNIT/ML 1 ML VIAL SQ SCH ×2 (07:46→20:14)
--- NOTE | 2020-11-05 11:29 | P.PN ---
Subjective Progress Note Date: 11/05/20 CHIEF COMPLAINT: Malfunctioning PEG tube HISTORY OF PRESENT ILLNESS: Patient is status post replacement of PEG tube. Patient's tube feedings will be started today. She is lying in bed comfortably. She is currently tolerating her pured diet. Patient is afebrile. PHYSICAL EXAM: VITAL SIGNS: Reviewed. GENERAL: Well-developed in no acute distress. HEENT: No sclera icterus. Extraocular movements grossly intact. Moist buccal mucosa. Head is atraumatic, normocephalic. ABDOMEN: Soft. Nondistended. Nontender. Dressing is clean dry and intact NEUROLOGIC: Nonverbal. Patient lying in bed comfortably ASSESSMENT: 1. Gastrostomy tube malfunction status post peg tube replacement 2. PEG tube site cellulitis PLAN: -Consult dietitian to start PEG tube feedings -Continue antibiotics Physician Portable Track Line Marker note has been reviewed by physician. Signing provider agrees with the documented findings, assessment, and plan of care. Objective - Vital Signs Vital signs: Vital Signs Temp 98.3 F 11/05/20 05:00 Pulse 61 11/05/20 05:00 Resp 18 11/05/20 05:00 BP 131/82 11/05/20 05:00 Pulse Ox 97 11/05/20 05:00 Intake & Output 11/04/20 11/05/20 11/05/20 18:59 06:59 18:59 Intake Total 300 650 Balance 300 650 Intake: IV 100 Intake, IV Titration 200 650 Amount ceFAZolin 1,000 mg In 100 550 Sodium Chloride 0.9% 50 ml @ 100 mls/hr IVPB Q8HR [facility] Rx#:[id number] levETIRAcetam IV 500 mg 100 100 In Sodium Chloride 0.9% 100 ml @ 400 mls/hr IVPB Q12HR [facility] Rx#:[id number] Other: Voiding Method Diaper Diaper Diaper Incontinent # Voids 1 2 - Labs CBC & Chem 7: 11/02/20 08:30 11/04/20 09:28
[2020-11-05] MEDS: SODIUM CHLORIDE 0.9% 1,000 ML IV SCH (11:57)
[2020-11-05 12:59] VITALS: BMI 19.3
--- NOTE | 2020-11-05 15:55 | P.PN ---
Subjective Progress Note Date: 11/05/20 60-year-old woman who is transferred here from outside hospital. The patient had been taken there with concern of possible infection at the site of her peg tube. At the other facility, it was noted that the PEG tube had was not fully in place. The patient did have CT of the chest abdomen pelvis at the other facility, which did show approximately 3 x 8 cm fluid collection in the abdominal wall, which was concerning for possible infection. I before being transferred from the other facility they did place a 14-Setswana Torres catheter to maintain the tract. Additional history reveals PEG tube placement here by Dr. Chow in January 2020. Patient not having any reported fevers, vomiting, change in bowel movements, or other symptoms. Labs at the other facility revealed white blood cell count 8900. There was an elevated BUN to creatinine ratio suggestive of mild dehydration. Lactic acid borderline at 2.2. Patient did receive dose of vancomycin and IV fluids. Patient does have history of po ssible palsy chronically debilitated had history of constipation and aspiration pneumonias in the past because of which patient had a PEG tube that was placed recently. Patient does have PEG tube site infection and cellulitis for which patient was started on antibiotics and PEG tube was removed. 11/02/2020 Patient is on Ativan because of except for total side effects from Risperdal as in nursing staff did go into her crushed pills of benztropine as well as Risperdal. Patient will undergo PEG tube placement on Wednesday continue with cefazolin. 11/03/2020 no significant overnight events patient will be monitored for constipation. 11/04/2020 Patient will undergo PEG tube placement. Patient is much more awake patient is following commands today. Patient gives answers with head nodding Review of systems: Unable to obtain due to her clinical condition 11/05/2020 Patient underwent PEG tube placement yesterday and is awaiting to resume tube feedings at the 24 hour esme. Surgery is following. Patient will resume tube feedings around 2 PM and monitor closely and will likely discharge tomorrow. No acute overnight issues noted. Patient is maintained on IV cefazolin and will transition to oral Keflex upon discharge. IV fluids have been discontinued. Patient will be returning to [facility] home. All inpatient medications were reviewed and appropriate changes in these medications as dictated in the interval history and assessment and plan. Objective - Vital Signs Vital signs: Vital Signs Temp 98.3 F 11/05/20 05:00 Pulse 61 11/05/20 05:00 Resp 18 11/05/20 05:00 BP 131/82 11/05/20 05:00 Pulse Ox 97 11/05/20 05:00 Intake & Output 11/04/20 11/05/20 11/05/20 18:59 06:59 18:59 Intake Total 300 650 Balance 300 650 Intake: IV 100 Intake, IV Titration 200 650 Amount ceFAZolin 1,000 mg In 100 550 Sodium Chloride 0.9% 50 ml @ 100 mls/hr IVPB Q8HR [facility] Rx#:[id number] levETIRAcetam IV 500 mg 100 100 In Sodium Chloride 0.9% 100 ml @ 400 mls/hr IVPB Q12HR [facility] Rx#:[id number] Other: Voiding Method Diaper Diaper Diaper Incontinent # Voids 1 2 - Exam GENERAL: Patient is asleep although arousable. Lethargic. Appears to be in no acute distress HEENT: Pupils are round and equally reacting to light. EOMI. No scleral icterus. No conjunctival pallor. Normocephalic, atraumatic. No pharyngeal erythema. No thyromegaly. CARDIOVASCULAR: S1 and S2 present. No murmurs, rubs, or gallops. PULMONARY: Clear to auscultation ABDOMEN: Soft, nontender, nondistended, normoactive bowel sounds. No palpable organomegaly. Cellulitis of the PEG tube site area, improving MUSCULOSKELETAL: No joint swelling or deformity. EXTREMITIES: No cyanosis, clubbing, or pedal edema. NEUROLOGICAL: Gross neurological examination did not reveal any focal deficits. SKIN: Cellulitis noted around the PEG tube site area as mentioned above - Labs CBC & Chem 7: 11/02/20 08:30 11/04/20 09:28 Assessment and Plan Assessment: -Malfunctioning and displaced PEG tube along with infection at the insertion site. PEG tube was removed and patient was started on cefazolin for cellulitis. Patient is on prophylactic anti-seizure medications which will be switched to IV. -Status post PEG tube replacement; tube feedings to be resumed at the 24-hour esme around 2 PM and will monitor -Cerebral palsy: Supportive care, continue antipsychotic medications. -Hyperlipidemia -Seizure disorder -Chronic medical debility -DVT prophylaxis with heparin subcutaneous Plan: Continue with current medications. IV fluids being discontinued as tube feedings are started and tolerating thus far. We'll continue to monitor for 24 hours and will likely be discharged to return to [facility] home. Surgery is following this patient underwent PEG tube placement yesterday. Patient is maintained on IV cefazolin and will continue and we'll transition to oral Keflex upon discharge. Further recommendations to follow. Anticipate discharge in the morning.
[2020-11-05] MEDS: polyethylene glycoL 3350 17 GM POWD.PACK PO SCH (20:15)
[2020-11-05 20:48] VITALS: RESP 20
[2020-11-06 02:09] LABS: Glucose,Whole Blood 112 mg/dL (75-99)
[2020-11-06 05:55] VITALS: TEMP 98.6
[2020-11-06] MEDS: LORazepam 2 MG/ML INJ IV SCH (08:44)
[2020-11-06] MEDS: risperiDONE 1 MG TAB PO SCH (08:45)
[2020-11-06] MEDS: AMIODARONE 200 MG TAB PO SCH (08:45)
[2020-11-06] MEDS: HEPARIN SODIUM,PORCINE 5,000 UNIT/ML 1 ML VIAL SQ SCH (08:45)
[2020-11-06] MEDS: BENZTROPINE MESYLATE 0.5 MG TAB PO SCH (08:45)
[2020-11-06] MEDS: levETIRAcetam IV 500 MG in SODIUM CHLORIDE 0.9% 100 ML IVPB SCH (09:57)
--- NOTE | 2020-11-06 11:54 | P.PN ---
Subjective Progress Note Date: 11/06/20 CHIEF COMPLAINT: Malfunctioning PEG tube HISTORY OF PRESENT ILLNESS: Patient is status post replacement of PEG tube. Patient is tolerating tube feedings. She did have minimal residual per nursing staff. She is tolerating her pured diet. Patient is afebrile. Patient is scheduled for discharge back to [facility] today PHYSICAL EXAM: VITAL SIGNS: Reviewed. GENERAL: Well-developed in no acute distress. HEENT: No sclera icterus. Extraocular movements grossly intact. Moist buccal mucosa. Head is atraumatic, normocephalic. ABDOMEN: Soft. Nondistended. Nontender. Dressing is clean dry and intact. Cellulitis area and old PEG site is decreasing. NEUROLOGIC: Nonverbal. Patient lying in bed comfortably ASSESSMENT: 1. Gastrostomy tube malfunction status post peg tube replacement 2. PEG tube site cellulitis PLAN: -Continue PEG tube feedings per dietitian recommendations -Continue antibiotics -Patient is stable for discharge from surgical standpoint Physician Boiler Tester note has been reviewed by physician. Signing provider agrees with the documented findings, assessment, and plan of care. Objective - Vital Signs Vital signs: Vital Signs Temp 98.6 F 11/06/20 05:00 Pulse 78 11/06/20 08:00 Resp 20 11/06/20 08:00 BP 129/71 11/06/20 05:00 Pulse Ox 95 11/06/20 05:00 Intake & Output 11/05/20 11/06/20 11/06/20 18:59 06:59 18:59 Intake Total 380 Balance 380 Weight 55.5 kg 54.5 kg Intake: Intake, IV Titration 200 Amount ceFAZolin 1,000 mg In 100 Sodium Chloride 0.9% 50 ml @ 100 mls/hr IVPB Q8HR MARIYA Rx#:[id number] levETIRAcetam IV 500 mg 100 In Sodium Chloride 0.9% 100 ml @ 400 mls/hr IVPB Q12HR MARIYA Rx#:[id number] Tube Feeding 180 Other: Voiding Method Diaper Incontinent Diaper Incontinent # Voids 1 - Labs CBC & Chem 7: 11/02/20 08:30 11/04/20 09:28 Labs: Abnormal Lab Results - Last 24 Hours (Table) 11/06/20 Range/Units 02:07 POC Glucose (mg/dL) 112 H (75-99) mg/dL
--- NOTE | 2020-11-06 13:08 | P.DS ---
Providers Date of admission: 11/04/20 12:44 Expected date of discharge: 11/06/20 Attending physician: Jazzmine Aly Consults: 11/01/20 06:32 Consult Physician Routine Consulting Provider: Charly Chow Consult Reason/Comments: PEG tube malfunction. Possible abdominal wall cellulitis. Do you want consulting provider notified?: Yes Primary care physician: Carlitos Valenzuela Hospital Course: Final diagnosis -Malfunctioning and displaced PEG tube along with infection at the insertion site -Status post PEG tube replacement -Cerebral palsy -Hyperlipidemia -Seizure disorder -Chronic medical debility -DVT prophylaxis Discharge disposition Patient is being discharged in a stable condition with guarded prognosis to [facility] as she is a resident there. Patient will follow-up with Dr. Valenzuela in the outpatient setting upon discharge. Patient is to continue with Keflex 500 mg 3 times daily for the next 5 days and then may discontinue. Patient is to continue with non-adherent dressing around the PEG tube site. Total time taken is greater than 35 minutes. Hospital course This is a 60-year-old female who was recently admitted with possible cellulitis around the PEG tube site and PEG tube was dislodged and was being closely monitored. Patient was seen and evaluated by surgery and underwent PEG tube replacement and patient was maintained on IV cefazolin and will continue with oral Keflex 500 mg 3 times daily for the next 5 days and then may discontinue. Commended continue with nonadherent dressing around the PEG tube site as there is some surrounding redness and excoriation of the skin although is improving. Patient is maintained on tube feedings along with dysphagia ground to diet and should have head of the bed elevated 30-45 at all times, strict supervision with meals and assistance with meals along with strict aspiration precautions. Currently no reports of chest pain, shortness of breath, or palpitations. Patient is afebrile. No reports of nausea or vomiting and patient is tolerating dysphagia ground diet and PEG tube feedings. Patient will be going to [facility] today. On exam vital signs are stable. Temp is 98.6F, pulse is 78, respirations are 20, blood pressure is 129/71, oxygen saturation is 95% on room air. Cardio S1, S2 are muffled. Respiratory system shows diminished breath sounds at the bases with no wheezing or rhonchi noted. Abdomen is soft and nontender. PEG tube site is dry with minimal redness noted. Nervous system shows diffuse weakness. Please refer to medication reconciliation sheet for a list of medications. Patient Condition at Discharge: Fair Plan - Discharge Summary New Discharge Prescriptions: New Benztropine Mesylate [Cogentin] 0.5 mg PO BID@0700,2100 30 Days #60 tab Na Phos,M-B/Na Phos,Di-Ba [Fleet Adult] 133 ml RECTAL DAILY PRN enema PRN Reason: IF NO BM IN 4DAYS Magnesium Hydroxide [Milk of Magnesia Concentrate] 2,400 mg PO DAILY PRN ml PRN Reason: CONSTIPATION X2DAYS Acetaminophen Tab [Tylenol] 650 mg PO Q4H PRN tab PRN Reason: Pain Cephalexin [Keflex] 500 mg PO Q8HR 5 Days #15 cap Continue Amiodarone [Cordarone] 200 mg PEG/G-TUBE DAILY@0700 polyethylene glycoL 3350 [Miralax] 17 gm PEG/G-TUBE DAILY@0700 levETIRAcetam ORAL SOLN [Keppra Oral Soln] 500 mg PEG/G-TUBE BID@0700,2100 Saliva Stimulant Agents Comb.3 [Biotene Moisturizing Mouth] 1 spray MUCOUS MEM TID@0700,1700,2100 Valproic Acid Oral Soln [Depakene Syrup] 375 mg PEG/G-TUBE BID@0700,2100 Regulate Powder 15 ml PEG/G-TUBE DAILY@0700 LORazepam [Ativan] 0.5 mg PEG/G-TUBE TID@1200,1600,2100 #6 tab risperiDONE [RisperDAL] 2 mg PEG/G-TUBE DAILY@0700 #10 tab Discharge Medication List Amiodarone [Cordarone] 200 mg PEG/G-TUBE DAILY@0700 02/12/20 [History] polyethylene glycoL 3350 [Miralax] 17 gm PEG/G-TUBE DAILY@0700 07/19/20 [History] Regulate Powder 15 ml PEG/G-TUBE DAILY@0700 11/01/20 [History] Saliva Stimulant Agents Comb.3 [Biotene Moisturizing Mouth] 1 spray MUCOUS MEM TID@0700,1700,2100 11/01/20 [History] Valproic Acid Oral Soln [Depakene Syrup] 375 mg PEG/G-TUBE BID@0700,2100 11/01/20 [History] levETIRAcetam ORAL SOLN [Keppra Oral Soln] 500 mg PEG/G-TUBE BID@0700,2100 11/01/20 [History] Acetaminophen Tab [Tylenol] 650 mg PO Q4H PRN tab 11/06/20 [Rx] Benztropine Mesylate [Cogentin] 0.5 mg PO BID@0700,2100 30 Days #60 tab 11/06/20 [Rx] Cephalexin [Keflex] 500 mg PO Q8HR 5 Days #15 cap 11/06/20 [Rx] LORazepam [Ativan] 0.5 mg PEG/G-TUBE TID@1200,1600,2100 #6 tab 11/06/20 [Rx] Magnesium Hydroxide [Milk of Magnesia Concentrate] 2,400 mg PO DAILY PRN ml 11/06/20 [Rx] Na Phos,M-B/Na Phos,Di-Ba [Fleet Adult] 133 ml RECTAL DAILY PRN enema 11/06/20 [Rx] risperiDONE [RisperDAL] 2 mg PEG/G-TUBE DAILY@0700 #10 tab 11/06/20 [Rx] Follow up Appointment(s)/Referral(s): Carlitos Valenzuela MD [Primary Care Provider] - 1-2 days Activity/Diet/Wound Care/Special Instructions: She is returning to [facility] Activity as tolerated Continue with current diet along with PEG tube Continue the antibiotics for 5 days and then may discontinue Follow-up with primary care provider upon discharge Continue with non-adherent dressing around PEG tube site Discharge Disposition: TRANSFER TO [facility]
[2020-11-06 13:14] VITALS: BP 151/84; PULSE 70
--- NOTE | 2020-11-11 15:23 | CDI ---
Documentation Clarification Form Date: 11/11/2020 03:22:00 PM From: Jenna Li Phone: : If you have a question about this query, please contact Mima Styles Manager Decision Support at [phone] between 8am and 5pm Admit Date: 11/04/2020 12:44:00 PM Patient Name: Ramandeep Whitt Visit Number: [id number] Discharge Date: 11/06/2020 03:26:00 PM ATTENTION: The Clinical Documentation Specialists (CDI) and [facility] Coding Staff appreciate your assistance in clarifying documentation. Please respond to the clarification below the line at the bottom and electronically sign. The CDI & [facility] Coding staff will review the response and follow-up if needed. Please note: Queries are made part of the Legal Health Record. If you have any questions, please contact the author of this message via ITS. Dr. Betsey Petersen Patient has been described as: Patient had PEG tube placement on 02/14/[address] madden for protein calorie malnutrition and aspiration pneumonia History/Risk Factors: Dysphagia, PEG feeds, COPD, MELLY, Seizure D/O, Depression Clinical Indicators: BMI 19.3 Patients weight is: 54.431 Patients height is: 5 ft 6 in Calculated BMI is: 19.3 Treatments: Enteral Nutrition Dietary Consult: 11/05 In order to capture the severity of condition associated with patient BMI of 19.3, a clinical diagnosis needs to be documented by the physician. Please clarify: Cachexia Underweight Malnutrition Mild Moderate Severe Other Unable to determine Underweight MTDD
== END 2020-11-06 15:26 | disposition home health service (06) | DRG 394 ==
LOC: EC 03:47 → 1SOBS 06:31 → 6NMEDSUR 11-02 20:19 → OBSVTOIN 11-04 12:44
PROVIDERS: ADMIT Internal Medicine; ATTEND Internal Medicine
PROC: 0DH63UZ Insertion of Feeding Device into Stomach, Percutaneous Approach (ICD-10-PCS; principal; 2020-11-04 14:05)
PROC: 3E0G76Z Introduction of Nutritional Substance into Upper GI, Via Natural or Artificial Opening (ICD-10-PCS; 2020-11-05)
DX: K94.23 Gastrostomy malfunction (principal); L03.311 Cellulitis of abdominal wall; R47.01 Aphasia; Z68.1 Body mass index [BMI] 19.9 or less, adult; H90.3 Sensorineural hearing loss, bilateral; G80.9 Cerebral palsy, unspecified; R13.10 Dysphagia, unspecified; K94.22 Gastrostomy infection; E86.0 Dehydration; E78.5 Hyperlipidemia, unspecified; G40.909 Epilepsy, unspecified, not intractable, without status epilepticus; J44.9 Chronic obstructive pulmonary disease, unspecified; G47.33 Obstructive sleep apnea (adult) (pediatric); R15.9 Full incontinence of feces; R32 Unspecified urinary incontinence; I87.2 Venous insufficiency (chronic) (peripheral); F20.9 Schizophrenia, unspecified; F32.9 Major depressive disorder, single episode, unspecified; R63.6 Underweight; R53.81 Other malaise; Y83.8 Other surgical procedures as the cause of abnormal reaction of the patient, or of later complication, without mention of misadventure at the time of the procedure; Z71.3 Dietary counseling and surveillance; Z79.899 Other long term (current) drug therapy; Z87.01 Personal history of pneumonia (recurrent); Z87.19 Personal history of other diseases of the digestive system; Z90.49 Acquired absence of other specified parts of digestive tract; Z98.890 Other specified postprocedural states; Z88.8 Allergy status to other drugs, medicaments and biological substances; Z82.49 Family history of ischemic heart disease and other diseases of the circulatory system; Z83.3 Family history of diabetes mellitus
CPT/HCPCS: 43246; 74018; 80048; 81003; 85027; 99285

== ENCOUNTER 2020-12-14 20:10 | Inpatient (IN) | payer MEDICARE, OTHER ==
[2020-12-14] MEDS ORDERED: ACETAMINOPHEN IV (For NPO) 1,000 MG in EMPTY BAG 1 BAG IVPB ONE (21:02)
[2020-12-14] MEDS ORDERED: ACETAMINOPHEN SUPPOSITORY 650 MG SUPP RECTAL STA (21:03)
[2020-12-14] MEDS ORDERED: MORPHINE SULFATE 2 MG/ML SYRINGE IVP STA (21:24)
[2020-12-14] MEDS ORDERED: ONDANSETRON 4 MG/2 ML VIAL IVP STA (21:24)
--- NOTE | 2020-12-14 21:28 | XR ---
EXAMINATION TYPE: XR chest 1V portable DATE OF EXAM: 12/14/2020 COMPARISON: 08/03/2020 HISTORY: Fever TECHNIQUE: FINDINGS: Heart is normal. Lungs are clear of consolidation. There are no hilar masses. There is slig ht widening of the mediastinum on the right side. This is also present on old exam and probably not c hanged. There is no pleural effusion. There is bilateral anterior dislocation of the humeral heads. This appears new compared to old CT sca n of 10/31/2020. There is a large chip fracture of the greater tuberosity of the right humerus. IMPRESSION: There is some widening of the mediastinum not changed. There is clearing of the atelectas is in the lower lung [place] compared to old exam. Mediastinal appearance is to relate to tortuous aor tic arch demonstrated on the chest CT scan of 10/31/2020. There is new bilateral anterior dislocation of the shoulder joints.
--- NOTE | 2020-12-14 21:42 | ED ---
General Adult HPI - General Chief complaint: Fever Stated complaint: Fever Time Seen by Provider: 12/14/20 20:23 Source: Caregiver Mode of arrival: wheelchair Limitations: altered mental status, physical limitation - History of Present Illness Initial comments: 60 year-old female patient who is developmentally delayed, living at adult foster care presents to the emergency department for evaluation of fever. Caregiver provides all of history as patient is mostly non-verbal except for incomprehensible sounds. Caregiver reports that patient was taken to [facility] twice over the last 2 days for PEG tube displacement. States it was successfully replaced and she was discharged back home. They state that she did develop a fever today and concerned about aspiration so they brought her here for further evaluation. When asked about extensive bruising over the right arm caregiver states the patient did have a fall apparently morning from her wheelchair though landed on her buttocks. Patient seems quite uncomfortable with any attempt at moving the arm. She was given Tylenol earlier today. They deny any vomiting. States she did have an episode of diarrhea which is not unusual for her. They deny any rash. They deny any coughing or congestion. They deny any COVID outbreak at the facility. - Related Data Home Medications Medication Instructions Recorded Confirmed Amiodarone [Cordarone] 200 mg PEG/G-TUBE DAILY@0700 02/12/20 12/14/20 polyethylene glycoL 3350 [Miralax] 17 gm PEG/G-TUBE DAILY@0700 07/19/20 12/14/20 Saliva Stimulant Agents Comb.3 1 spray MUCOUS MEM 11/01/20 12/14/20 [Biotene Moisturizing Mouth] TID@0700,1700,2100 Valproic Acid Oral Soln [Depakene 375 mg PEG/G-TUBE BID@0700,209911/01/20 12/14/20 Syrup] levETIRAcetam ORAL SOLN [Keppra 500 mg PEG/G-TUBE BID@0700,209911/01/20 12/14/20 Oral Soln] Acetaminophen Tab [Tylenol] 650 mg PEG/G-TUBE Q4H PRN 12/14/20 12/14/20 Hydrophilic Cream [Triad Cream] 1 applic TOPICAL TID@0700,1500,2100 12/14/20 12/14/20 Ipratropium-Albuterol Nebulize 3 ml INHALATION RT-QID PRN 12/14/20 12/14/20 [Duoneb 0.5 mg-3 mg/3 ml Soln] LORazepam [Ativan] 0.5 mg PEG/G-TUBE BID@1200,1600 12/14/20 12/14/20 LORazepam [Ativan] 1 mg PEG/G-TUBE HS@2100 12/14/20 12/14/20 Magnesium Hydroxide [Milk of 2,400 mg PEG/G-TUBE Q48H PRN 12/14/20 12/14/20 Magnesia] Na Phos,M-B/Na Phos,Di-Ba [Fleet 133 ml RECTAL Q96D PRN 12/14/20 12/14/20 Adult] Nutren Renal Liquid 1 can PEG/G-TUBE TID PRN 12/14/20 12/14/20 Reguloid Powder 48.57% 1 tbsp PEG/G-TUBE BID@0700,2100 12/14/20 12/14/20 bisacodyL [Bisacodyl] 10 mg RECTAL DAILY PRN 12/14/20 12/14/20 Previous Rx's Medication Instructions Recorded risperiDONE [RisperDAL] 2 mg PEG/G-TUBE DAILY@0700 #10 tab 11/06/20 Allergies Allergy/AdvReac Type Severity Reaction Status Date / Time quetiapine Allergy Unknown Unknown Verified 12/14/20 23:36 lithium Allergy Unknown Verified 12/14/20 23:36 topiramate [From Topamax] Allergy Unknown Verified 12/14/20 23:36 Review of Systems ROS Statement: Those systems with pertinent positive or pertinent negative responses have been documented in the HPI. ROS Other: All systems not noted in ROS Statement are negative. Past Medical History Past Medical History: Asthma, COPD, Hearing Disorder / Deafness, Hyperlipidemia, Pneumonia, Seizure Disorder, Sleep Apnea/CPAP/BIPAP, Syncope, Vascular Disorder Additional Past Medical History / Comment(s): Recent bowel obstruction with colostomy and then reversal 08/02/20, constipation, cognitive delay/mentally challenged, bronchitis, dysphagia/has peg tube to supplement, pt has had previous aspiration pneumonia and staff at shelter states recently she has been having increased difficulty swallowing and have been utilizing peg tube more, tremors-sister states never determined cause, incontinent or urine and stool, normally walks with assist of one but not lately-too difficult, MELLY with no cpap but was wearing oxygen at 3L/NC until recently-it was dc/d, mild sensorineural bilateral hearing loss, sister states pt has hx of something ?cyst pericardial/R aortic arch, venous insufficiency, sister unsure if pt has ever had a seizure, L arm contractured, bilateral feet hammer toes, anemia, pancytopenia. History of Any Multi-Drug Resistant Organisms: None Reported Past Surgical History: Orthopedic Surgery Additional Past Surgical History / Comment(s): Peg tube, colectomy with ostomy placement, 08/02/20 reversal of colostomy; salvary gland left side removed, fx elbow surgery. Past Anesthesia/Blood Transfusion Reactions: No Reported Reaction Additional Past Anesthesia/Blood Transfusion Reaction / Comment(s): per [id number] hx of post-op reaction that she is aware of. Past Psychological History: Bipolar, Depression, Schizophrenia Smoking Status: Never smoker Past Alcohol Use History: None Reported Past Drug Use History: None Reported - Past Family History Mother Family Medical History: Vascular Disorder Additional Family Medical History / Comment(s): Mother of a ruptured brain aneurysm in her 50s. Father Family Medical History: Coronary Artery Disease (CAD), Diabetes Mellitus Additional Family Medical History / Comment(s): Father lived to be 92 yrs old. He had CABG General Exam Limitations: altered mental status, physical limitation General appearance: alert, other Eye exam: Present: normal appearance, PERRL, EOMI. Absent: scleral icterus, conjunctival injection, periorbital swelling ENT exam: Present: normal exam, normal oropharynx, mucous membranes dry, TM's normal bilaterally Neck exam: Present: normal inspection, full ROM, other (No cervical spinal tenderness noted). Absent: tenderness, meningismus, lymphadenopathy Respiratory exam: Present: normal lung sounds bilaterally. Absent: respiratory distress, wheezes, rales, rhonchi, stridor Cardiovascular Exam: Present: regular rate, normal rhythm, tachycardia, normal heart sounds. Absent: systolic murmur, diastolic murmur, rubs, gallop, clicks GI/Abdominal exam: Present: soft, normal bowel sounds. Absent: distended, tenderness, guarding, rebound, rigid Extremities exam: Present: tenderness (Right upper arm), other (There is extensive ecchymosis noted over the right upper arm, skin is otherwise pink, warm, and dry. Cap refill less than 3 seconds. Radial pulses 2+.). Absent: normal inspection Back exam: Present: normal inspection. Absent: vertebral tenderness Neurological exam: Present: alert, CN II-XII intact Skin exam: Present: warm, dry, intact, normal color. Absent: rash Course Vital Signs 12/14/20 12/14/20 20:17 22:47 Temperature 101.4 F H 99.1 F Pulse Rate 114 H 92 Respiratory 28 H 20 Rate Blood Pressure 139/56 123/65 O2 Sat by Pulse 99 96 Oximetry EKG Findings - EKG Comments: EKG Findings:: EKG obtained at 2157 shows sinus tachycardia with a ventricular rate of 105,. Interval 100, QRS duration 80, QT 300, QTC 396. No evidence of ST elevation or depression. Medical Decision Making - Medical Decision Making 60-year-old female patient was brought to the emergency department today for evaluation of fever. Physical examination did reveal extensive bruising over the right upper arm. When questioned about this caregiver reported the patient had a fall yesterday and they were hoping to also get a x-ray of her shoulder. Remainder physical exam is unremarkable. Patient is nonverbal and has cognitive delay is unable to contribute to history. Labs reviewed and did reveal white blood cell count at 16.4, neutrophils 14.4. Lactic is normal, urinalysis shows large leukocyte esterase with 34 white blood cells, 124 white blood cells, few white blood cell clumps, rare bacteria, rare mucous. She tested negative for COVID-19. Chest x-ray shows no signs of pneumonia. X-ray of the bilateral shoulder did reveal bilateral anterior dislocations with chip fracture of the right proximal humerus. Case was discussed with Dr. Ambrocio who believes there is a fracture on the left as well. We will admit for reduction of the bilateral shoulders under general anesthesia tomorrow. She is also going to be treated for urinary tract infection with Rocephin. We did consult medicine. Case discussed with my attending Dr. Montgomery. In regards to the bilateral shoulder injuries, caregiver spoke to staff at the shelter who states that patient had a fall yesterday morning where she slid out of the wheelchair on to her buttocks. Staff apparently assisted her in the fall and were able to "catch" her before any major impact. Severity of injury is not explained by this fall, APS report was made. - Lab Data Result diagrams: 12/14/20 21:42 12/14/20 21:42 - Radiology Data Radiology results: report reviewed, image reviewed One view x-ray of the chest is obtained. Report reviewed in its entirety. Impression by Dr. Bob shows some widening of the mediastinum not change. There is clearing of the atelectasis in the lower lung moncada compared to old exam. Mediastinal appearance is to relate to torturous aortic arch demonstrated on CT chest scan of 10/31/2020. There is no bilateral anterior dislocation of the shoulder joints. 3 views of each shoulder obtained. Report was reviewed in its entirety. Impression by Dr. Bob shows bilateral anterior dislocation of the humeral heads. Possible chip fracture of the right humerus Disposition Clinical Impression: Fracture dislocation of right shoulder joint, Fracture dislocation of left shoulder joint, UTI (urinary tract infection), Sepsis Disposition: ADMITTED IP TO THIS [facility] Decision to Admit Reason: Admit from [facility] Decision Date: 12/14/20 Decision Time: 23:13
--- NOTE | 2020-12-14 21:58 | XR ---
EXAMINATION TYPE: XR shoulder complete BILAT DATE OF EXAM: 12/14/2020 COMPARISON: NONE HISTORY: Shoulder pain after fall TECHNIQUE: 3 views each shoulder FINDINGS: There is bilateral anterior dislocation of the humeral heads. There is 2.5 cm calcification at the posterior aspect of the right side glenoid labrum that could be large chip fracture of the gr eater tuberosity. Age of this fracture is not clear. There is some calcification at the left side pos terior glenoid labrum. The AC joints are intact. IMPRESSION: Bilateral anterior dislocation of the humeral heads. Possible chip fracture of the graded thoracic the right humerus.
[2020-12-14] MEDS: SODIUM CHLORIDE 0.9% 500 ML 500 ML IV SCH ×2 (22:00→22:24)
[2020-12-14 22:13] LABS: ALT 40 U/L (4-34); AST 94 U/L (14-36); African American GFR (CKD) >90 (>60 ml/min/1.73 sqM); Albumin 3.5 g/dL (3.5-5.0); Alkaline Phosphatase 80 U/L (38-126); Anion Gap 10 mmol/L; Blood Urea Nitrogen 27 mg/dL (7-17); Calcium 8.6 mg/dL (8.4-10.2); Carbon Dioxide 28 mmol/L (22-30); Chloride 97 mmol/L (98-107); Glucose 158 mg/dL (74-99); Non-African American GFR(CKD) >90 (>60 ml/min/1.73 sqM); Potassium 4.2 mmol/L (3.5-5.1); Sodium 135 mmol/L (137-145); Total Bilirubin 0.7 mg/dL (0.2-1.3); Total Protein 6.4 g/dL (6.3-8.2)
[2020-12-14 22:20] LABS: Basophils % (A) 0 %; Eosinophils # (A) 0.1 k/uL (0-0.7); Eosinophils % (A) 1 %; HCT 34.7 % (34.0-46.0); HGB 11.6 gm/dL (11.4-16.0); Lymphocytes # (A) 0.7 k/uL (1.0-4.8); Lymphocytes % (A) 4 %; MCH 32.4 pg (25.0-35.0); MCHC 33.4 g/dL (31.0-37.0); MCV 96.9 fL (80.0-100.0); Mean Platelet Volume 9.4; Monocytes % (A) 6 %; Neutrophils # (A) 14.4 k/uL (1.3-7.7); Neutrophils % (A) 88 %; Platelet Count 173 k/uL (150-450); RBC 3.58 m/uL (3.80-5.40); RDW 13.1 % (11.5-15.5); WBC 16.4 k/uL (3.8-10.6)
[2020-12-14 22:21] LABS: INR 1.1 (<1.2); Prothrombin Time 11.7 sec (9.0-12.0)
[2020-12-14 22:26] LABS: Partial Thromboplastin Time 18.5 sec (22.0-30.0)
[2020-12-14 22:30] LABS: Appearance,Urine Cloudy (Clear); Bacteria,Urine Rare /hpf; Bilirubin,Urine Negative (Negative); Blood,Urine Small (Negative); Color,Urine Yellow; Glucose,Urine (UA) Negative (Negative); Ketones,Urine Negative (Negative); Leukocyte Esterase,Urine Large (Negative); Mucus,Urine Rare /hpf; Nitrite,Urine Negative (Negative); Protein,Urine 1+ (Negative); RBC,Urine 34 /hpf (0-5); Specific Gravity,Urine 1.033 (1.001-1.035); Squamous Epithelial Cell,Urine <1 /hpf (0-4); WBC,Urine 124 /hpf (0-5)
[2020-12-14] MEDS ORDERED: ONDANSETRON 4 MG/2 ML VIAL IVP PRN (23:09)
[2020-12-14] MEDS ORDERED: NALOXONE 0.4 MG/ML 1 ML VIAL IV PRN (23:09)
[2020-12-14] MEDS ORDERED: SODIUM CHLORIDE 0.9% 1,000 ML IV ONE (23:13)
[2020-12-15] MEDS: HYDROmorphone 0.5 MG/0.5 ML SYRINGE IVP PRN ×2 (00:57→05:25)
[2020-12-15] MEDS: SODIUM CHLORIDE 0.9% 1,000 ML IV SCH ×4 (00:59→22:15)
[2020-12-15] MEDS ORDERED: IPRATROPIUM-ALBUTEROL 3 ML NEB INHALATION PRN (04:36)
--- NOTE | 2020-12-15 04:38 | P.CONS ---
History of Present Illness - Reason for Consult Consult date: 12/15/20 - History of Present Illness Patient is a 60-year-old female with a PMH of developmental delay, resident of a adult foster care who was sent in to the emergency room due to fevers. Patient unable to provide history and thereby obtained from the chart. The patient was reportedly taken to [facility] multiple times over the past few days for PEG tube placement which was replaced successfully. She however then developed a fever with the caregivers concern for aspiration, with and subsequently sent her into the emergency room. The patient was noted to have significant right arm bruising and was reported to have suffered a fall on when she slid out of her wheelchair onto her buttocks. In the emergency room, imaging revealed bilateral anterior dislocations of the humeral heads along with a possible chip fracture of the right humerus. She was admitted to the surgery service with medicine consult. EKG had revealed sinus tachycardia with short IL at 105 bpm with chest x-ray also showing shoulder dislocations. Laboratory evaluation was remarkable for leukocytosis of 16.4, sodium 135, chloride 97, BUN 27, creatinine 0.50, excessive 1.6, AST 94, AST 40, and UA consistent with UTI. Review of Systems ROS unobtainable: due to mental status Past Medical History Past Medical History: Asthma, COPD, Hearing Disorder / Deafness, Hyperlipidemia, Pneumonia, Seizure Disorder, Sleep Apnea/CPAP/BIPAP, Syncope, Vascular Disorder Additional Past Medical History / Comment(s): Recent bowel obstruction with colostomy and then reversal 08/02/20, constipation, cognitive delay/mentally challenged, bronchitis, dysphagia/has peg tube to supplement, pt has had previous aspiration pneumonia and [facility] recently she has been having increased difficulty swallowing and have been utilizing peg tube more, tremors-sister states never determined cause, incontinent or urine and stool, normally walks with assist of one but not lately-too difficult, MELLY with no cpap but was wearing oxygen at 3L/NC until recently-it was dc/d, mild sensorineural bilateral hearing loss, sister states pt has hx of something ?cyst pericardial/R aortic arch, venous insufficiency, sister unsure if pt has ever had a seizure, L arm contractured, bilateral feet hammer toes, anemia, pancytopenia. History of Any Multi-Drug Resistant Organisms: None Reported Past Surgical History: Orthopedic Surgery Additional Past Surgical History / Comment(s): Peg tube, colectomy with ostomy placement, 08/02/20 reversal of colostomy; salvary gland left side removed, fx elbow surgery. Past Anesthesia/Blood Transfusion Reactions: No Reported Reaction Additional Past Anesthesia/Blood Transfusion Reaction / Comm: per [id number] hx of post-op reaction that she is aware of. Past Psychological History: Bipolar, Depression, Schizophrenia Smoking Status: Never smoker Past Alcohol Use History: None Reported Past Drug Use History: None Reported - Past Family History Mother Family Medical History: Vascular Disorder Additional Family Medical History / Comment(s): Mother of a ruptured brain aneurysm in her 50s. Father Family Medical History: Coronary Artery Disease (CAD), Diabetes Mellitus Additional Family Medical History / Comment(s): Father lived to be 92 yrs old. He had CABG Medications and Allergies Home Medications Medication Instructions Recorded Confirmed Type Amiodarone [Cordarone] 200 mg PEG/G-TUBE DAILY@0700 02/12/20 12/14/20 History polyethylene glycoL 3350 [Miralax] 17 gm PEG/G-TUBE DAILY@0700 07/19/20 12/14/20 History Saliva Stimulant Agents Comb.3 1 spray MUCOUS MEM 11/01/20 12/14/20 History [Biotene Moisturizing Mouth] TID@0700,1700,2100 Valproic Acid Oral Soln [Depakene 375 mg PEG/G-TUBE BID@0700,2100 11/01/20 12/14/20 History Syrup] levETIRAcetam ORAL SOLN [Keppra 500 mg PEG/G-TUBE BID@0700,2100 11/01/20 12/14/20 History Oral Soln] risperiDONE [RisperDAL] 2 mg PEG/G-TUBE DAILY@0700 #10 tab 11/06/20 12/14/20 Rx Acetaminophen Tab [Tylenol] 650 mg PEG/G-TUBE Q4H PRN 12/14/20 12/14/20 History Hydrophilic Cream [Triad Cream] 1 applic TOPICAL TID@0700,1500,209912/14/20 12/14/20 History Ipratropium-Albuterol Nebulize 3 ml INHALATION RT-QID PRN 12/14/20 12/14/20 History [Duoneb 0.5 mg-3 mg/3 ml Soln] LORazepam [Ativan] 0.5 mg PEG/G-TUBE BID@1200,1600 12/14/20 12/14/20 History LORazepam [Ativan] 1 mg PEG/G-TUBE HS@2100 12/14/20 12/14/20 History Magnesium Hydroxide [Milk of 2,400 mg PEG/G-TUBE Q48H PRN 12/14/20 12/14/20 Hi story Magnesia] Na Phos,M-B/Na Phos,Di-Ba [Fleet 133 ml RECTAL Q96D PRN 12/14/20 12/14/20 His tory Adult] Nutren Renal Liquid 1 can PEG/G-TUBE TID PRN 12/14/20 12/14/20 History Reguloid Powder 48.57% 1 tbsp PEG/G-TUBE BID@0700,2100 12/14/20 12/14/20 History bisacodyL [Bisacodyl] 10 mg RECTAL DAILY PRN 12/14/20 12/14/20 History Allergies Allergy/AdvReac Type Severity Reaction Status Date / Time quetiapine Allergy Unknown Unknown Verified 12/14/20 23:36 lithium Allergy Unknown Verified 12/14/20 23:36 topiramate [From Topamax] Allergy Unknown Verified 12/14/20 23:36 Physical Exam Vitals: Vital Signs Temp Pulse Pulse Resp BP BP Pulse Ox 12/15/20 00:45 97.9 F 100 18 113/69 95 12/14/20 22:47 99.1 F 92 20 123/65 96 12/14/20 20:17 101.4 F H 114 H 28 H 139/56 99 Intake and Output 12/14/20 12/14/20 12/15/20 14:59 22:59 06:59 Other: Weight 56.699 kg General: Chronically ill-appearing female, appears older than stated age, normal weight Derm: no unusual rashes/lesions, right arm bruising noted, warm, dry Head: atraumatic, normocephalic, symmetric Eyes: No lid lag, anicteric sclera, pupils equal round reactive to light ENT: Nose and ears atraumatic, no thrush, no pharyngeal erythema Neck: No thyromegaly, no cervical lymphadenopathy, trachea midline, supple Mouth: no lip lesion, mucus membranes dry Cardiovascular: S1S2 reg, no murmur, positive posterior tibial pulse bilateral, no edema, capillary refill less than 2 seconds Lungs: CTA bilateral, no rhonchi, no rales , no accessory muscle use Abdominal: soft, PEG tube in place, nontender to palpation, no guarding, no appreciable organomegaly, normal bowel sounds Ext: Diffuse muscle atrophy noted with mild contractures throughout Neuro: Unable to assess Psych: Patient not answering any questions or follow any commands Results CBC & Chem 7: 12/14/20 21:42 12/14/20 21:42 Labs: Abnormal Lab Results - Last 24 Hours (Table) 12/14/20 12/14/20 12/14/20 Range/Units 21:42 21:42 21:42 WBC 16.4 H (3.8-10.6) k/uL RBC 3.58 L (3.80-5.40) m/uL Neutrophils # 14.4 H (1.3-7.7) k/uL Lymphocytes # 0.7 L (1.0-4.8) k/uL APTT 18.5 L (22.0-30.0) sec Sodium 135 L (137-145) mmol/L Chloride 97 L (98-107) mmol/L BUN 27 H (7-17) mg/dL Creatinine 0.50 L (0.52-1.04) mg/dL Glucose 158 H (74-99) mg/dL AST 94 H (14-36) U/L ALT 40 H (4-34) U/L Urine Appearance (Clear) Urine Protein (Negative) Urine Blood (Negative) Ur Leukocyte Esterase (Negative) Urine RBC (0-5) /hpf Urine WBC (0-5) /hpf Urine WBC Clumps (None) /hpf Urine Bacteria (None) /hpf Urine Mucus (None) /hpf 12/14/20 Range/Units 22:10 WBC (3.8-10.6) k/uL RBC (3.80-5.40) m/uL Neutrophils # (1.3-7.7) k/uL Lymphocytes # (1.0-4.8) k/uL APTT (22.0-30.0) sec Sodium (137-145) mmol/L Chloride (98-107) mmol/L BUN (7-17) mg/dL Creatinine (0.52-1.04) mg/dL Glucose (74-99) mg/dL AST (14-36) U/L ALT (4-34) U/L Urine Appearance Cloudy H (Clear) Urine Protein 1+ H (Negative) Urine Blood Small H (Negative) Ur Leukocyte Esterase Large H (Negative) Urine RBC 34 H (0-5) /hpf Urine WBC 124 H (0-5) /hpf Urine WBC Clumps Few H (None) /hpf Urine Bacteria Rare H (None) /hpf Urine Mucus Rare H (None) /hpf Assessment and Plan Plan: Sepsis likely secondary to UTI -Ceftriaxone 1 g daily -Follow up urine culture -IV fluids Bilateral shoulder dislocations -APS report filed by emergency room -Defer to the orthopedic surgery service Abnormal LFTs, possibly secondary to ongoing sepsis -Monitor for now Hyperglycemia -Check A1c DVT prophylaxis -heparin
[2020-12-15] MEDS: HEPARIN SODIUM,PORCINE 5,000 UNIT/ML 1 ML VIAL SQ SCH ×3 (09:03→22:15)
[2020-12-15] MEDS: AMIODARONE 200 MG TAB PEG/G-TUBE SCH (09:12)
[2020-12-15] MEDS: risperiDONE 2 MG TAB PEG/G-TUBE SCH (09:12)
[2020-12-15] MEDS: levETIRAcetam ORAL SOLN 500 MG/5 ML CUP PEG/G-TUBE SCH ×2 (09:12→22:13)
[2020-12-15] MEDS: VALPROIC ACID ORAL SOLN 250 MG/5 ML CUP PEG/G-TUBE SCH ×2 (09:12→22:14)
--- NOTE | 2020-12-15 10:14 | P.HPOR ---
History of Present Illness H&P Date: 12/15/20 Chief Complaint: Urosepsis, bilateral shoulder dislocation. This is a 60-year-old female with developmental delay. She is a resident [facility] who developed fever over the past few days. She has recent history of PEG tube displacement and has been at [facility] over the past couple of days. She was brought to the emergency department with elevated temperature. She was found to have a urinary tract infection. Chest x-ray had incidental finding of bilateral shoulder dislocation. She apparently has had some falls recently at the [facility]. This was not the initial presenting complaint. She was admitted to orthopedic surgery due to the shoulder dislocations. Medicine is on consult for the urosepsis. Past Medical History Past Medical History: Asthma, COPD, Hearing Disorder / Deafness, Hyperlipidemia, Pneumonia, Seizure Disorder, Sleep Apnea/CPAP/BIPAP, Syncope, Vascular Disorder Additional Past Medical History / Comment(s): Recent bowel obstruction with colostomy and then reversal 08/02/20, constipation, cognitive delay/mentally challenged, bronchitis, dysphagia/has peg tube to supplement, pt has had previous aspiration pneumonia and staff at [facility] states recently she has been having increased difficulty swallowing and have been utilizing peg tube more, tremors-sister states never determined cause, incontinent or urine and stool, normally walks with assist of one but not lately-too difficult, MELLY with no cpap but was wearing oxygen at 3L/NC until recently-it was dc/d, mild sensorineural bilateral hearing loss, sister states pt has hx of something ?cyst pericardial/R aortic arch, venous insufficiency, sister unsure if pt has ever had a seizure, L arm contractured, bilateral feet hammer toes, anemia, pancytopenia. History of Any Multi-Drug Resistant Organisms: None Reported Past Surgical History: Orthopedic Surgery Additional Past Surgical History / Comment(s): Peg tube, colectomy with ostomy placement, 08/02/20 reversal of colostomy; salvary gland left side removed, fx elbow surgery. Past Anesthesia/Blood Transfusion Reactions: No Reported Reaction Additional Past Anesthesia/Blood Transfusion Reaction / Comment(s): per sister -Karol-no hx of post-op reaction that she is aware of. Past Psychological History: Bipolar, Depression, Schizophrenia Additional Psychological History / Comment(s): Pt resides at [facility] in [place]. Her sister, Karol [place] is her legal guardian. Pt has peg tube. Patient nonambulatory. Smoking Status: Never smoker Past Alcohol Use History: None Reported Past Drug Use History: None Reported - Past Family History Mother Family Medical History: Vascular Disorder Additional Family Medical History / Comment(s): Mother of a ruptured brain aneurysm in her 50s. Father Family Medical History: Coronary Artery Disease (CAD), Diabetes Mellitus Additional Family Medical History / Comment(s): Father lived to be 92 yrs old. He had CABG Medications and Allergies Home Medications Medication Instructions Recorded Confirmed Type Amiodarone [Cordarone] 200 mg PEG/G-TUBE DAILY@0700 02/12/20 12/14/20 History polyethylene glycoL 3350 [Miralax] 17 gm PEG/G-TUBE DAILY@0700 07/19/20 12/14/20 History Saliva Stimulant Agents Comb.3 1 spray MUCOUS MEM 11/01/20 12/14/20 History [Biotene Moisturizing Mouth] TID@0700,1700,2100 Valproic Acid Oral Soln [Depakene 375 mg PEG/G-TUBE BID@0700,2100 11/01/20 12/14/20 History Syrup] levETIRAcetam ORAL SOLN [Keppra 500 mg PEG/G-TUBE BID@0700,2100 11/01/20 12/14/20 History Oral Soln] risperiDONE [RisperDAL] 2 mg PEG/G-TUBE DAILY@0700 #10 tab 11/06/20 12/14/20 Rx Acetaminophen Tab [Tylenol] 650 mg PEG/G-TUBE Q4H PRN 12/14/20 12/14/20 History Hydrophilic Cream [Triad Cream] 1 applic TOPICAL TID@0700,1500,209912/14/20 12/14/20 History Ipratropium-Albuterol Nebulize 3 ml INHALATION RT-QID PRN 12/14/20 12/14/20 History [Duoneb 0.5 mg-3 mg/3 ml Soln] LORazepam [Ativan] 0.5 mg PEG/G-TUBE BID@1200,1600 12/14/20 12/14/20 History LORazepam [Ativan] 1 mg PEG/G-TUBE HS@2100 12/14/20 12/14/20 History Magnesium Hydroxide [Milk of 2,400 mg PEG/G-TUBE Q48H PRN 12/14/20 12/14/20 History Magnesia] Na Phos,M-B/Na Phos,Di-Ba [Fleet 133 ml RECTAL Q96D PRN 12/14/20 12/14/20 History Adult] Nutren Renal Liquid 1 can PEG/G-TUBE TID PRN 12/14/20 12/14/20 History Reguloid Powder 48.57% 1 tbsp PEG/G-TUBE BID@0700,2100 12/14/20 12/14/20 History bisacodyL [Bisacodyl] 10 mg RECTAL DAILY PRN 12/14/20 12/14/20 History Allergies Allergy/AdvReac Type Severity Reaction Status Date / Time quetiapine Allergy Unknown Unknown Verified 12/14/20 23:36 lithium Allergy Unknown Verified 12/14/20 23:36 topiramate [From Topamax] Allergy Unknown Verified 12/14/20 23:36 Physical Examination This is a 60-year-old female in no obvious distress. She is nonverbal and noncommunicative. Exam of the head neck reveal no obvious deformity. She is no pain response with palpation about cervical spine. Exam of the upper extremities reveals ecchymosis about the right shoulder which appears to be somewhat resolving. It is difficult to assess pain about the shoulders. She has limited motion of the shoulders. Exam of the lower extremities reveals some small areas of bruises in different stages of healing about the lower extremities. The right foot is in plantarflexion and inversion. There is no obvious pain with palpation about the thighs, knees, lower legs or feet and ankles. Neurovascular status to the extremities is intact. Results Chest x-ray reveals bilateral shoulder dislocation. Shoulder x-rays were then taken which reveal anterior dislocation bilateral shoulders with an avulsion of the tuberosity of the right shoulder. The dislocations may possibly be subacute or chronic. - Labs Labs: Abnormal Lab Results - Last 24 Hours (Table) 12/14/20 12/14/20 12/14/20 Range/Units 21:42 21:42 21:42 WBC 16.4 H (3.8-10.6) k/uL RBC 3.58 L (3.80-5.40) m/uL Neutrophils # 14.4 H (1.3-7.7) k/uL Lymphocytes # 0.7 L (1.0-4.8) k/uL APTT 18.5 L (22.0-30.0) sec Sodium 135 L (137-145) mmol/L Chloride 97 L (98-107) mmol/L BUN 27 H (7-17) mg/dL Creatinine 0.50 L (0.52-1.04) mg/dL Glucose 158 H (74-99) mg/dL AST 94 H (14-36) U/L ALT 40 H (4-34) U/L Urine Appearance (Clear) Urine Protein (Negative) Urine Blood (Negative) Ur Leukocyte Esterase (Negative) Urine RBC (0-5) /hpf Urine WBC (0-5) /hpf Urine WBC Clumps (None) /hpf Urine Bacteria (None) /hpf Urine Mucus (None) /hpf 12/14/20 Range/Units 22:10 WBC (3.8-10.6) k/uL RBC (3.80-5.40) m/uL Neutrophils # (1.3-7.7) k/uL Lymphocytes # (1.0-4.8) k/uL APTT (22.0-30.0) sec Sodium (137-145) mmol/L Chloride (98-107) mmol/L BUN (7-17) mg/dL Creatinine (0.52-1.04) mg/dL Glucose (74-99) mg/dL AST (14-36) U/L ALT (4-34) U/L Urine Appearance Cloudy H (Clear) Urine Protein 1+ H (Negative) Urine Blood Small H (Negative) Ur Leukocyte Esterase Large H (Negative) Urine RBC 34 H (0-5) /hpf Urine WBC 124 H (0-5) /hpf Urine WBC Clumps Few H (None) /hpf Urine Bacteria Rare H (None) /hpf Urine Mucus Rare H (None) /hpf H & H 12/14/20 Range/Units 21:42 Hgb 11.6 (11.4-16.0) gm/dL Hct 34.7 (34.0-46.0) % Coagulation 12/14/20 Range/Units 21:42 INR 1.1 (<1.2) Result Diagrams: 12/14/20 21:42 12/14/20 21:42 Assessment and Plan (1) Dislocation of left shoulder joint Current Visit: Yes Status: Acute Code(s): S43.005A - UNSPECIFIED DISLOCATION OF LEFT SHOULDER JOINT, INIT ENCNTR SNOMED Code(s): 158960669 (2) Fracture dislocation of right shoulder joint Current Visit: Yes Status: Acute Code(s): S42.91XA - FRACTURE OF RIGHT SHOULDER GIRDLE, PART UNSP, INIT SNOMED Code(s): 333837904 (3) Sepsis Current Visit: Yes Status: Acute Code(s): A41.9 - SEPSIS, UNSPECIFIED [facility] SNOMED Code(s): 58948189 (4) UTI (urinary tract infection) Current Visit: Yes Status: Acute Code(s): N39.0 - URINARY TRACT INFECTION, SITE NOT SPECIFIED SNOMED Code(s): 50517117 (5) PEG tube malfunction Current Visit: No Status: Acute Code(s): K94.23 - GASTROSTOMY MALFUNCTION SNOMED Code(s): 055421429 Plan: The clinical and x-ray findings are discussed with the nursing staff. She is boarded for close reduction of bilateral shoulders today in the OR. There is concern that these dislocations may be chronic. It is not likely that a fall out of a wheelchair would dislocate both shoulders in such a way. catering convention services manager has been consulted to evaluate the home situation. We will transfer tending to internal medicine.
[2020-12-15 11:29] LABS: Glucose,Whole Blood 110 mg/dL (75-99)
[2020-12-15] MEDS ORDERED: ROCURONIUM 10 MG/ML (5 ML VIAL) IV ONE (13:57)
[2020-12-15] MEDS ORDERED: DEXAMETHASONE SOD PHOSPHATE 10 MG/ML 1 ML VIAL ONE (13:57)
[2020-12-15] MEDS ORDERED: PROPOFOL 10 MG/ML 20 ML VIAL IV ONE (13:57)
[2020-12-15] MEDS ORDERED: ONDANSETRON 4 MG/2 ML VIAL ONE (13:57)
[2020-12-15] MEDS ORDERED: fentaNYL (PF) 50 MCG/ML 2 ML AMP ONE (13:57)
[2020-12-15] MEDS ORDERED: GLYCOPYRROLATE 0.2 MG/ML 2 ML VIAL ONE (13:57)
[2020-12-15] MEDS ORDERED: LIDOCAINE 1% INJ 10MG/ML (20 ML MDV) ONE (13:57)
[2020-12-15] MEDS ORDERED: PHENYLEPHRINE-0.9% NACL SYG 1,000 MCG/10 ML SYRINGE ONE (13:57)
[2020-12-15] MEDS ORDERED: NEOSTIGMINE 1 MG/ML 10 ML VIAL ONE (13:57)
[2020-12-15] MEDS ORDERED: SODIUM CHLORIDE 0.9% 1,000 ML IV ONE (14:01)
--- NOTE | 2020-12-15 16:29 | P.OP ---
Date of Procedure: 12/15/20 Procedure(s) Performed: PREOPERATIVE DIAGNOSES: 1. Bilateral shoulder glenohumeral anterior-inferior fracture dislocations, possibly chronic POSTOPERATIVE DIAGNOSES: 1. Bilateral shoulder glenohumeral anterior-inferior fracture-dislocations, probably chronic PROCEDURES PERFORMED: 1. Bilateral shoulder glenohumeral joint attempted closed reduction and evaluation with C-arm imaging (failed on both sides) (CPT 69801) ANESTHESIA: General plus paralytics given SUPERVISOR BONDING: None COMPLICATIONS: None (unable to reduce both dislocations) ESTIMATED BLOOD LOSS: None DISPOSITION: To postanesthesia care unit INDICATIONS: Ramandeep is a 60 year old woman with a history of bilateral shoulder fracture-dislocations that may be chronic. She is a custodial patient with multiple medical problems, who is noncommunicative, nonverbal, nonambulatory, and minimally responsive to stimuli, admitted for fever and urosepsis workup. Vague history of a recent fall where she slid down out of her wheelchair was noted. A fairly recent chest x-ray from 5 months ago showed fairly normal shoulders without dislocation. I have suggested an attempt at a closed reduction under C-arm guidance but I have also advised no heroic measures to restore the normal position of the joint as she has the problems mentioned above. We have discussed with her legal guardian (her sister) the potential risks and complications of this procedure as being inclusive of, but not limited to: fracture; persistence, recurrence or worsening of symptoms; redislocation; unreducible dislocation; muscle, ligament, tendon, blood vessel, nerve, or skin injury; failure; and other risks. She is aware of these risks and wishes to proceed. The consent form has been signed. PROCEDURE: The patient was taken to the operating room and anesthesia was performed. After a sufficient relaxed state had been achieved using paralytic agents, the right shoulder was manipulated for approximately 10 minutes with several maneuvers for relocating an anterior-inferior dislocation. These included progressive external rotation, traction-countertraction, cross-body adduction with posterior-superior force, progressive abduction, and bolster application in the axillary fold to assist in reduction. All manuevers were limited in force in order to avoid fracturing the humerus. No reduction was successful and C-arm imaging was used to assist in the evaluation of the shoulder during the case. In similar fashion, the left shoulder was also attempted to be reduced over a 10 minute period, which also failed. Note was made of a chronic appearing Hill-Sachs lesion as well as sclerosis of the humeral head adjacent to the Hill-Sachs lesion in both shoulders, indicating that likely these dislocations were greater than a couple months old. Considering this patients mental and functional status and minimal response to pain, I decided not to proceed with open surgery to reduce the shoulders. No evidence of acute fracture was noted during the case, although the large fragment of greater tuberosity of the right shoulder and the small yury of bone in the left shoulder (most likely a tuberosity avulsion fracture). The patient was then transferred to recovery room in stable condition, having tolerated the procedure well.
[2020-12-15 17:41] LABS: Glucose,Whole Blood 115 mg/dL (75-99)
[2020-12-16 00:44] LABS: Glucose,Whole Blood 103 mg/dL (75-99)
[2020-12-16] MEDS: HYDROmorphone 0.5 MG/0.5 ML SYRINGE IVP PRN ×5 (03:29→23:37)
[2020-12-16 05:35] LABS: Glucose,Whole Blood 93 mg/dL (75-99)
--- NOTE | 2020-12-16 07:42 | XR ---
EXAMINATION TYPE: XR shoulder limited bilateral, FL guidance operating room DATE OF EXAM: 12/15/2020 COMPARISON: NONE HISTORY: 60 year-old female bilateral shoulder dislocation FINDINGS: Intraoperative fluoroscopy during attempted closed reduction of the bilateral shoulders. FLUOROSCOPY Fluoroscopy time of 47 seconds was used during attempted closed reduction of the bilateral shoulders. . 2 image/s document/s the procedure. IMPRESSION: Intraoperative fluoroscopy as above.
[2020-12-16] MEDS: VALPROIC ACID ORAL SOLN 250 MG/5 ML CUP PEG/G-TUBE SCH ×2 (08:55→20:14)
[2020-12-16] MEDS: levETIRAcetam ORAL SOLN 500 MG/5 ML CUP PEG/G-TUBE SCH ×2 (08:55→20:15)
[2020-12-16] MEDS: HEPARIN SODIUM,PORCINE 5,000 UNIT/ML 1 ML VIAL SQ SCH ×3 (08:55→23:37)
[2020-12-16] MEDS: AMIODARONE 200 MG TAB PEG/G-TUBE SCH (08:55)
[2020-12-16] MEDS: risperiDONE 2 MG TAB PEG/G-TUBE SCH (08:55)
[2020-12-16] MEDS: SODIUM CHLORIDE 0.9% 1,000 ML IV SCH ×3 (08:55→20:15)
[2020-12-16 10:43] LABS: Basophils % (A) 0 %; Eosinophils % (A) 0 %; HCT 25.3 % (34.0-46.0); Lymphocytes # (A) 0.4 k/uL (1.0-4.8); Lymphocytes % (A) 8 %; MCH 32.4 pg (25.0-35.0); MCHC 32.5 g/dL (31.0-37.0); MCV 99.6 fL (80.0-100.0); Mean Platelet Volume 8.6; Monocytes # (A) 0.3 k/uL (0-1.0); Monocytes % (A) 6 %; Neutrophils # (A) 4.5 k/uL (1.3-7.7); Neutrophils % (A) 85 %; Platelet Count 134 k/uL (150-450); RBC 2.54 m/uL (3.80-5.40); RDW 13.1 % (11.5-15.5); WBC 5.3 k/uL (3.8-10.6)
[2020-12-16 10:49] LABS: HGB 8.2 gm/dL (11.4-16.0)
[2020-12-16 10:54] LABS: African American GFR (CKD) >90 (>60 ml/min/1.73 sqM); Anion Gap 4 mmol/L; Blood Urea Nitrogen 24 mg/dL (7-17); Calcium 7.5 mg/dL (8.4-10.2); Carbon Dioxide 29 mmol/L (22-30); Chloride 108 mmol/L (98-107); Glucose 111 mg/dL (74-99); Magnesium 2.1 mg/dL (1.6-2.3); Non-African American GFR(CKD) >90 (>60 ml/min/1.73 sqM); Potassium 3.8 mmol/L (3.5-5.1); Sodium 141 mmol/L (137-145)
--- NOTE | 2020-12-16 11:30 | P.PN ---
Subjective Progress Note Date: 12/16/20 Principal diagnosis: Bilateral shoulder dislocation. Multiple medical comorbidities. Urosepsis. This is a 60-year-old female with developmental delay. [facility] a [facility] a [facility] who developed fever over the past few days. She has recent history of PEG tube displacement and has been at [facility] over the past couple of days. She was brought to the emergency department with elevated temperature. She was found to have a urinary tract infection. Chest x-ray had incidental finding of bilateral shoulder dislocation. She apparently has had some [facility] at the [facility]. This was not the initial presenting complaint. She was admitted to orthopedic surgery due to the shoulder dislocations. Medicine is on consult for the urosepsis. 12/16/2020: The patient is status post close reduction attempts of bilateral dislocated shoulders in the operating room on 12/15/2020. The attemptTo reduce the shoulder dislocations was unsuccessful. It is felt that her dislocations are somewhat chronic. There are no new complaints or concerns today. Vital sig ns are stable. She continues to run a low-grade temp. Objective - Vital Signs Vital signs: Vital Signs Temp 99.1 F 12/16/20 08:00 Pulse 105 H 12/16/20 08:00 Resp 22 12/16/20 08:00 BP 114/54 12/16/20 08:00 Pulse Ox 97 12/16/20 08:00 Intake & Output 12/15/20 12/16/20 12/16/20 18:59 06:59 18:59 Intake Total 200 Output Total 400 175 Balance -200 -175 Weight 56.699 kg 56.699 kg Intake: IV 200 Output: Urine 400 175 Estimated Blood Loss 0 Other: Voiding Method External Catheter External Catheter # Voids 1 - Exam This is a 60-year-old nonverbal female who is sleeping soundly at this time. Orthopedic exam is not performed today. - Labs CBC & Chem 7: 12/16/20 10:22 12/16/20 10:22 Labs: Abnormal Lab Results - Last 24 Hours (Table) 12/15/20 12/15/20 12/16/20 Range/Units 11:27 17:40 00:41 RBC (3.80-5.40) m/uL Hgb (11.4-16.0) gm/dL Hct (34.0-46.0) % Plt Count (150-450) k/uL Lymphocytes # (1.0-4.8) k/uL Chloride (98-107) mmol/L BUN (7-17) mg/dL Creatinine (0.52-1.04) mg/dL Glucose (74-99) mg/dL POC Glucose (mg/dL) 110 H 115 H 103 H (75-99) mg/dL Calcium (8.4-10.2) mg/dL 12/16/20 12/16/20 Range/Units 10:22 10:22 RBC 2.54 L (3.80-5.40) m/uL Hgb 8.2 L D (11.4-16.0) gm/dL Hct 25.3 L (34.0-46.0) % Plt Count 134 L (150-450) k/uL Lymphocytes # 0.4 L (1.0-4.8) k/uL Chloride 108 H (98-107) mmol/L BUN 24 H (7-17) mg/dL Creatinine 0.43 L (0.52-1.04) mg/dL Glucose 111 H (74-99) mg/dL POC Glucose (mg/dL) (75-99) mg/dL Calcium 7.5 L (8.4-10.2) mg/dL Microbiology - Last 24 Hours (Table) 12/14/20 21:48 Blood Culture - Preliminary Blood No Growth after 24 hours 12/14/20 21:30 Blood Culture - Preliminary Blood No Growth after 24 hours 12/14/20 22:10 Urine Culture - Preliminary Urine,Catheterized Assessment and Plan (1) Dislocation of left shoulder joint Current Visit: Yes Status: Acute Code(s): S43.005A - UNSPECIFIED DISLOCATION OF LEFT SHOULDER JOINT, INIT ENCNTR SNOMED Code(s): 105936771 (2) Fracture dislocation of right shoulder joint Current Visit: Yes Status: Acute Code(s): S42.91XA - FRACTURE OF RIGHT SHOULDER GIRDLE, PART UNSP, INIT SNOMED Code(s): 667054427 (3) Sepsis Current Visit: Yes Status: Acute Code(s): A41.9 - SEPSIS, UNSPECIFIED ORGANISM SNOMED Code(s): 29760326 (4) UTI (urinary tract infection) Current Visit: Yes Status: Acute Code(s): N39.0 - URINARY TRACT INFECTION, SITE NOT SPECIFIED SNOMED Code(s): 50667373 (5) PEG tube malfunction Current Visit: No Status: Acute Code(s): K94.23 - GASTROSTOMY MALFUNCTION SNOMED Code(s): 712361287 Plan: The clinical and x-ray findings are discussed with the nursing staff. Operative findings are discussed with internal medicine. There is no further surgical indication at this time. The patient has history of limited independent function and has been unable to feed herself even prior to the shoulder dislocations. We will sign off from an orthopedic standpoint at this time.
[2020-12-16 11:33] LABS: Glucose,Whole Blood 109 mg/dL (75-99)
--- NOTE | 2020-12-16 12:57 | P.PN ---
Subjective Progress Note Date: 12/16/20 Principal diagnosis: sepsis and should pain Close reduction attempts of bilateral dislocated shoulders in the operating room on 12/15/2020 failed. It is felt that her dislocations are somewhat chronic. Patient is still having fevers. Otherwise no new complaints according to RN. Objective - Vital Signs Vital signs: Vital Signs Temp 99.1 F 12/16/20 08:00 Pulse 105 H 12/16/20 08:00 Resp 22 12/16/20 08:00 BP 114/54 12/16/20 08:00 Pulse Ox 97 12/16/20 08:00 Intake & Output 12/15/20 12/16/20 12/16/20 18:59 06:59 18:59 Intake Total 200 Output Total 400 175 Balance -200 -175 Weight 56.699 kg 56.699 kg Intake: IV 200 Output: Urine 400 175 Estimated Blood Loss 0 Other: Voiding Method External Catheter External Catheter # Voids 1 - Exam General: Chronically ill-appearing female, appears older than stated age, normal weight Derm: no unusual rashes/lesions, right arm bruising noted, warm, dry Head: atraumatic, normocephalic, symmetric Eyes: No lid lag, anicteric sclera, pupils equal round reactive to light ENT: Nose and ears atraumatic, no thrush, no pharyngeal erythema Neck: No thyromegaly, no cervical lymphadenopathy, trachea midline, supple Mouth: no lip lesion, mucus membranes dry Cardiovascular: S1S2 reg, no murmur, positive posterior tibial pulse bilateral, no edema, capillary refill less than 2 seconds Lungs: CTA bilateral, no rhonchi, no rales , no accessory muscle use Abdominal: soft, PEG tube in place, nontender to palpation, no guarding, no appreciable organomegaly, normal bowel sounds Ext: Diffuse muscle atrophy noted with mild contractures throughout Neuro: Unable to assess Psych: Patient not answering any questions or follow any commands - Labs CBC & Chem 7: 12/16/20 10:22 12/16/20 10:22 Labs: Abnormal Lab Results - Last 24 Hours (Table) 12/15/20 12/16/20 12/16/20 Range/Units 17:40 00:41 10:22 RBC 2.54 L (3.80-5.40) m/uL Hgb 8.2 L D (11.4-16.0) gm/dL Hct 25.3 L (34.0-46.0) % Plt Count 134 L (150-450) k/uL Lymphocytes # 0.4 L (1.0-4.8) k/uL Chloride (98-107) mmol/L BUN (7-17) mg/dL Creatinine (0.52-1.04) mg/dL Glucose (74-99) mg/dL POC Glucose (mg/dL) 115 H 103 H (75-99) mg/dL Calcium (8.4-10.2) mg/dL 12/16/20 12/16/20 Range/Units 10:22 11:22 RBC (3.80-5.40) m/uL Hgb (11.4-16.0) gm/dL Hct (34.0-46.0) % Plt Count (150-450) k/uL Lymphocytes # (1.0-4.8) k/uL Chloride 108 H (98-107) mmol/L BUN 24 H (7-17) mg/dL Creatinine 0.43 L (0.52-1.04) mg/dL Glucose 111 H (74-99) mg/dL POC Glucose (mg/dL) 109 H (75-99) mg/dL Calcium 7.5 L (8.4-10.2) mg/dL Microbiology - Last 24 Hours (Table) 12/14/20 21:48 Blood Culture - Preliminary Blood No Growth after 24 hours 12/14/20 21:30 Blood Culture - Preliminary Blood No Growth after 24 hours 12/14/20 22:10 Urine Culture - Preliminary Urine,Catheterized Assessment and Plan Plan: Sepsis likely secondary to UTI -BC NGTD -Awaiting urine cx -d/c ceftriaxone, start zosyn due to recurrent fevers on abx. -IV fluids Bilateral shoulder dislocations -Failed reduction attempt, per orthopedic surgery service won't reattempt. Abnormal LFTs, possibly secondary to ongoing sepsis -Recheck in am Hyperglycemia -A1c ok. DVT prophylaxis -heparin
[2020-12-16] MEDS: PIPERACILLIN-TAZOBACTAM 3.375 GM in SODIUM CHLORIDE 0.9% 100 ML IVPB SCH ×2 (15:46→23:37)
[2020-12-16 17:15] LABS: Glucose,Whole Blood 112 mg/dL (75-99)
[2020-12-16] MEDS ORDERED: ACETAMINOPHEN ORAL SUSP 160 MG/5 ML CUP PEG/G-TUBE ONE (21:00)
[2020-12-16 23:41] LABS: Glucose,Whole Blood 116 mg/dL (75-99)
[2020-12-17 00:21] LABS: Glucose,Whole Blood 97 mg/dL (75-99)
[2020-12-17] MEDS: HYDROmorphone 0.5 MG/0.5 ML SYRINGE IVP PRN (03:53)
[2020-12-17 05:42] LABS: Glucose,Whole Blood 127 mg/dL (75-99)
[2020-12-17] MEDS: HEPARIN SODIUM,PORCINE 5,000 UNIT/ML 1 ML VIAL SQ SCH ×2 (08:24→16:46)
[2020-12-17] MEDS: AMIODARONE 200 MG TAB PEG/G-TUBE SCH (08:24)
[2020-12-17] MEDS: risperiDONE 2 MG TAB PEG/G-TUBE SCH (08:24)
[2020-12-17] MEDS: VALPROIC ACID ORAL SOLN 250 MG/5 ML CUP PEG/G-TUBE SCH ×2 (08:25→20:16)
[2020-12-17] MEDS: levETIRAcetam ORAL SOLN 500 MG/5 ML CUP PEG/G-TUBE SCH ×2 (08:25→20:16)
[2020-12-17] MEDS: SODIUM CHLORIDE 0.9% 1,000 ML IV SCH ×2 (08:26→09:42)
[2020-12-17] MEDS: PIPERACILLIN-TAZOBACTAM 3.375 GM in SODIUM CHLORIDE 0.9% 100 ML IVPB SCH ×2 (08:26→16:33)
[2020-12-17 09:14] LABS: HCT 28.2 % (37.2-46.3); HGB 8.6 g/dL (12.0-15.0); MCH 32.1 pg (27.0-32.0); MCHC 30.5 g/dL (32.0-37.0); MCV 105.2 fL (80.0-97.0); Mean Platelet Volume 11.3 fL (9.5-12.2); Platelet Count 158 X 10*3/uL (140-440); RBC 2.68 X 10*6/uL (4.10-5.20); RDW 13.9 % (11.5-14.5); WBC 5.24 X 10*3/uL (4.50-10.00)
[2020-12-17 09:46] LABS: African American GFR (CKD) 130.3 (60.0-200.0); Albumin/Globulin Ratio 1.15 (1.60-3.17); Anion Gap 6.2 mmol/L (4.00-12.00); BUN/Creat Ratio 67.5 Ratio (12.00-20.00); Calcium 7.9 mg/dL (8.7-10.3); Carbon Dioxide 28.8 mmol/L (21.6-31.8); Globulin 2.6 g/dL (1.6-3.3); Magnesium 2.1 mg/dL (1.5-2.4); Non-African American GFR(CKD) 112.4 (60.0-200.0); Potassium 4.2 mmol/L (3.5-5.5); Total Bilirubin 0.5 mg/dL (0.3-1.2); Total Protein 5.6 g/dL (6.2-8.2)
[2020-12-17 09:51] LABS: Basophils # (A) 0 X 10*3/uL (0.00-0.10); Basophils % (A) 0 %; Eosinophils # (A) 0.01 X 10*3/uL (0.04-0.35); Eosinophils % (A) 0.2 %; Lymphocytes # (A) 0.91 X 10*3/uL (0.90-5.00); Lymphocytes % (A) 17.4 %; Monocytes # (A) 0.38 X 10*3/uL (0.20-1.00); Monocytes % (A) 7.3 %; Neutrophils # (A) 3.92 X 10*3/uL (1.80-7.70); Neutrophils % (A) 74.7 %
--- NOTE | 2020-12-17 10:56 | XR ---
EXAMINATION TYPE: XR chest 1V portable DATE OF EXAM: 12/17/2020 COMPARISON: Chest x-ray 12/14/2020, CT 10/31/2020 HISTORY: Pneumonia TECHNIQUE: Single frontal view of the chest is obtained. FINDINGS: Parenchymal bands are present centrally within the bilateral lungs. No evident pneumothora x or pleural effusion. Again noted is dislocation of the right and left shoulder as on prior exam. Ca rdiac mediastinal silhouette is stable. There is a spinal curvature. Fluid collection noted within th e right pectoralis muscle is not seen on plain film. IMPRESSION: Central atelectasis bilaterally, correlate to exclude pneumonia. Persistent dislocation of the shoulders. Additional findings above.
[2020-12-17 11:33] LABS: Glucose,Whole Blood 151 mg/dL (75-99)
[2020-12-17] MEDS: LORazepam 0.5 MG TAB PEG/G-TUBE SCH ×2 (12:26→16:46)
--- NOTE | 2020-12-17 15:14 | CT ---
EXAMINATION TYPE: CT abdomen pelvis wo con DATE OF EXAM: 12/17/2020 COMPARISON: 09/10/2020 HISTORY: 60-year-old female fevers, UTI CT DLP: 624.8 mGycm. Automated exposure control for dose reduction was used. TECHNIQUE: Contiguous axial scanning of the abdomen and pelvis without IV contrast. Coronal and sagit evelina reconstructions performed. FINDINGS: Exam limitations due to lack of contrast, diffuse anasarca change, and artifact from the patient's ar ms down by her side. Heart normal size without pericardial effusion. There are trace effusions with prominent dependent ba silar opacities. Liver measures larger now at 21.7 cm versus 18.1 cm on the recent 09/10/2020 exam. A PEG tube is noted the catheter appears to be advanced with the balloon inflated in the region of th e second portion of the duodenum. The graft possible mild free fluid in the gallbladder fossa. No abn ormal gallbladder distention. Limited assessment of the adrenal glands, kidneys, spleen, and pancreas. No gross abnormality seen. A gain, very limited assessment. No evident hydronephrosis. No dilated small bowel or free air. There may be trace perisplenic ascites. Oral contrast has progressed to the rectum. Stool and contrast distends the rectum up to 5.6 cm wide. There appears to be a 7 cm long segment of narrowed and circumferentially thickened colon at the hep atic flexure, coronal image 61 and axial image 62. Moderate circumferential bladder wall thickening. 8mm nodularity along the posterior left bladder wal l, axial image 1:15. Uterus anteverted. Ovaries are visualized. No abnormal fluid collection in the p lili or evidence pelvic lymphadenopathy. Bones: Degenerative change of the hips. Osteopenia. Severe endplate fracture of L4 was present back i n 09/10/2020. Mild superior endplate deformity of L5 however, is new from 09/10/2020 and will need cl inical correlation. DISH within the visualized lower thoracic spine. IMPRESSION: 1. Exam limitations due to diffuse anasarca change, lack of IV contrast, and extensive artifacts fro m the patient's arms down by her side. 2. Trace effusions, anasarca change, and trace upper abdominal ascites. Findings suggest fluid overl oad state/third spacing. 3. Prominent dependent opacities in the visualized lung bases probably atelectasis. Correlate to exc lude pneumonia or aspiration. 4. The liver measures larger now at 21.7 cm versus 18.1 cm on 09/10/2020. Correlate to exclude hepat itis. 5. Note that the patient's PEG tube is pushed too far in. The balloon is inflated in the region of t he second portion of the duodenum. 6. A 7 cm long segment of narrowed and circumferentially thickened colon at the hepatic flexure. Cor relate for nonspecific colitis. Direct visualization when patient able to exclude less likely possibi lity of neoplasm (as the finding is entirely new from 09/10/2020). 7. Moderate circumferential bladder wall thickening may be chronic in this patient or could represen t cystitis. 8. Note 8 mm nodularity along the left posterior bladder wall. Findings could represent a bladder ca lculus. A urothelial lesion is not excluded at this time. Correlate with urinalysis, urine cytology, and possible direct visualization. 9. Mild superior endplate deformity of L5 is new from 09/10/2020. Correlate for any focal pain at th is level.
[2020-12-17] MEDS ORDERED: AZITHROMYCIN 500 MG in SODIUM CHLORIDE 0.9% 250 ML IVPB SCH (16:00)
[2020-12-17 17:38] LABS: Glucose,Whole Blood 135 mg/dL (75-99)
--- NOTE | 2020-12-17 17:54 | P.PN ---
Subjective Progress Note Date: 12/17/20 (delayed charting seen at 1015) Principal diagnosis: fevers Patient is a 60-year-old female with past medical history of developmental delay, bowel obstruction with colostomy and reversal, dysphagia status post PEG tube placement with history of aspiration pneumonia, dyslipidemia who presented from her adult foster care secondary to fevers. Apparently she had been to [facility] multiple times over the last few days for PEG tube placement. She was noted to have significant right arm bruising on admission and she had fallen 4 days before admission and her buttocks. She was diagnosed with sepsis felt to be secondary to urinary tract infection was started on ceftriaxone 1 g daily. She was also noted to have bilateral soles or dislocations. Initial chest x-ray showed chronic widening of mediastinum, torturous aorta, and bilateral humeral dislocations. Bilateral shoulder x-rays showed anterior dislocation of humeral heads with possible chip fracture. Orthopedic surgery was consulted. They attempted intraoperative reduction which was unsuccessful and these were felt to be chronic dislocations. Her white count improved with initiation of the Rocephin however she continued to spike fevers. Patient seen and examined at bedside. She is nonverbal but moans. General: non toxic, no distress, appears at stated age Derm: Bruising to right upper arm warm, dry Head: atraumatic, normocephalic, symmetric Eyes: EOMI, no lid lag, anicteric sclera Mouth: no lip lesion, mucus membranes dry, poor dentition Cardiovascular: S1S2 reg, no murmur, positive posterior tibial pulse bilateral, Lungs: Decreased breath sounds bilateral, no rhonchi, no rales , no accessory muscle use Abdominal: soft, nontender to palpation, no guarding, no appreciable orga nomegaly, PEG tube in place no drainage noted Ext: + gross muscle atrophy, no edema, Neuro: Bilateral upper extremity contractures, bilateral lower extremity contractures, resting tremor Psych: Awake Klebsiella and E. coli urinary tract infection, present on admission, sepsis on arrival -Continue with Zosyn, should also have been susceptible to Rocephin -Blood cultures negative to date Anemia -Undetermined etiology -Stable since 12/16 and may have been falsely elevated due to dehydration -Check iron studies, B12, RBC folate Hypernatremia -Suspect secondary to fluid resuscitation -Repeat in a.m. if continues elevated will need to increase free water flushes for tube feeds Pyrexia with normal white count -Attempted upper extremity venous Doppler due to bruising of right upper extremity-unable to be performed -Chest x-ray with atelectasis: Add Zithromax in case there is a component of c ommunity-acquired pneumonia -CT abdomen and pelvis if and repeat blood cultures line-with recent multiple trips to the ER we'll recheck Covid Her glycemia -Hemoglobin A1c 5.6 Dysphagia, PEG tube -Continue tube feeds Cognitive disability -will return to [facility] -Sister is guardian -Supportive care Bladder calculi or mass - outpatient follow-up with urology after treatment of UTI Per tube displaced on CT - consult surgery Elevated LFTs, improved Dyslipidemia Seizure disorder MELLY Syncope DVT prophylaxis: heparin Discussed with: patient, nursing Anticipated discharge: 3-[address]: return to [facility] A total of 45 minutes was spent on the care of this complex patient more than 50% of the time was spent in counseling and care coordination. Objective - Vital Signs Vital signs: Vital Signs Temp 102.8 F H 12/17/20 13:58 Pulse 86 12/17/20 13:58 Resp 20 12/17/20 13:58 BP 115/65 12/17/20 13:58 Pulse Ox 99 12/17/20 13:58 Intake & Output 12/16/20 12/17/20 12/17/20 18:59 06:59 18:59 Intake Total 60 Output Total 200 400 Balance -140 -400 Weight 56.699 kg 45.5 kg Intake: Tube Feeding 60 Output: Urine 200 400 Other: Voiding Method External Catheter External Catheter - Labs CBC & Chem 7: 12/17/20 05:58 12/17/20 05:58 Labs: Abnormal Lab Results - Last 24 Hours (Table) 12/16/20 12/17/20 12/17/20 Range/Units 23:39 05:40 05:58 RBC 2.68 L (4.10-5.20) X 10*6/uL Hgb 8.6 L (12.0-15.0) g/dL Hct 28.2 L (37.2-46.3) % MCV 105.2 H (80.0-97.0) fL MCH 32.1 H (27.0-32.0) pg MCHC 30.5 L (32.0-37.0) g/dL Eosinophils # 0.01 L (0.04-0.35) X 10*3/uL Sodium (135-145) mmol/L Chloride (96-109) mmol/L Creatinine (0.6-1.5) mg/dL BUN/Creatinine Ratio (12.00-20.00) Ratio Glucose (70-110) mg/dL POC Glucose (mg/dL) 116 H 127 H (75-99) mg/dL Calcium (8.7-10.3) mg/dL AST (13-35) U/L Total Protein (6.2-8.2) g/dL Albumin (3.80-4.90) g/dL Albumin/Globulin Ratio (1.60-3.17) g/dL 12/17/20 12/17/20 Range/Units 05:58 11:31 RBC (4.10-5.20) X 10*6/uL Hgb (12.0-15.0) g/dL Hct (37.2-46.3) % MCV (80.0-97.0) fL MCH (27.0-32.0) pg MCHC (32.0-37.0) g/dL Eosinophils # (0.04-0.35) X 10*3/uL Sodium 146 H (135-145) mmol/L Chloride 111 H (96-109) mmol/L Creatinine 0.4 L (0.6-1.5) mg/dL BUN/Creatinine Ratio 67.50 H (12.00-20.00) Ratio Glucose 114 H (70-110) mg/dL POC Glucose (mg/dL) 151 H (75-99) mg/dL Calcium 7.9 L (8.7-10.3) mg/dL AST 58 H (13-35) U/L Total Protein 5.6 L (6.2-8.2) g/dL Albumin 3.00 L (3.80-4.90) g/dL Albumin/Globulin Ratio 1.15 L (1.60-3.17) g/dL Microbiology - Last 24 Hours (Table) 12/14/20 22:10 Urine Culture - Final Urine,Catheterized Klebsiella pneumoniae Escherichia coli 12/14/20 21:48 Blood Culture - Preliminary Blood No Growth after 48 hours 12/14/20 21:30 Blood Culture - Preliminary Blood No Growth after 48 hours
[2020-12-17] MEDS ORDERED: VANCOMYCIN IV PER PHARMACY 1 EACH MISC MISCELLANE PRN (19:56)
[2020-12-17] MEDS ORDERED: ACETAMINOPHEN ORAL SUSP 160 MG/5 ML CUP PEG/G-TUBE ONE (20:00)
[2020-12-17] MEDS: LORazepam 1 MG TAB PEG/G-TUBE SCH (20:17)
[2020-12-17] MEDS ORDERED: VANCOMYCIN 1,000 MG in SODIUM CHLORIDE 0.9% 250 ML IVPB ONE (21:00)
[2020-12-17 23:58] LABS: Glucose,Whole Blood 113 mg/dL (75-99)
[2020-12-18] MEDS: PIPERACILLIN-TAZOBACTAM 3.375 GM in SODIUM CHLORIDE 0.9% 100 ML IVPB SCH ×4 (00:20→23:10)
[2020-12-18] MEDS: HEPARIN SODIUM,PORCINE 5,000 UNIT/ML 1 ML VIAL SQ SCH ×4 (00:20→23:10)
[2020-12-18 00:46] LABS: Hepatitis A Antibody IgM Non-Reactive (Non-Reactive); Hepatitis B Core IgM Non-Reactive (Non-Reactive); Hepatitis B Surface Antigen Non-Reactive (Non-Reactive); Hepatitis C IgG Antibody Non-Reactive (Non-Reactive)
[2020-12-18 05:16] LABS: Glucose,Whole Blood 138 mg/dL (75-99)
[2020-12-18] MEDS: AMIODARONE 200 MG TAB PEG/G-TUBE SCH (07:28)
[2020-12-18] MEDS: VALPROIC ACID ORAL SOLN 250 MG/5 ML CUP PEG/G-TUBE SCH ×2 (07:38→21:10)
[2020-12-18] MEDS: risperiDONE 2 MG TAB PEG/G-TUBE SCH (07:38)
[2020-12-18] MEDS: levETIRAcetam ORAL SOLN 500 MG/5 ML CUP PEG/G-TUBE SCH ×2 (07:38→21:10)
[2020-12-18] MEDS ORDERED: VANCOMYCIN 750 MG in SODIUM CHLORIDE 0.9% 250 ML IVPB SCH (09:00)
[2020-12-18 10:54] LABS: Glucose,Whole Blood 119 mg/dL (75-99)
[2020-12-18] MEDS ORDERED: AZITHROMYCIN 500 MG in SODIUM CHLORIDE 0.9% 250 ML IVPB SCH (14:00)
[2020-12-18] MEDS: LORazepam 0.5 MG TAB PEG/G-TUBE SCH ×2 (14:34→16:17)
--- NOTE | 2020-12-18 14:44 | P.CONS ---
History of Present Illness - Reason for Consult Consult date: 12/18/20 Sepsis, UTI, pneumonia - History of Present Illness HISTORY OF PRESENT ILLNESS This is a 60-year-old female patient with past medical history of developmental delay, bowel obstruction and colostomy with reversal, dysphagia status post PEG tube placement and history of aspiration pneumonia, dyslipidemia. Patient [facility] an [facility]. Patient is non-verbal but makes incoherent verbal sounds. She was initially at [facility] 2 days prior to this admission due to PEG tube replacement and patient was discharged home. She developed a fever on December 14 and there was concern for aspiration and p atient was brought in the hospital for further evaluation. Patient also had a fall on morning from her wheelchair leaning on her buttocks. His been no vomiting. No cough or congestion. Initial chest x-ray showed widening of mediastinum. Clearing of atelectasis in the lower lung [place] compared to old exam. Bilateral anterior dislocation of the shoulder joints. Shoulder x-rays revealed bilateral anterior dislocation of the humerus heads. Possible chip fracture of the right humerus. Patient is status post bilateral shoulder glenohumeral joint attempted closed reduction by orthopedics but this was unable to be reduced bilaterally. Repeat chest x-ray on December 17 revealed central atelectasis bilaterally correlate to exclude pneumonia. Persistent dislocation of the shoulders. CAT scan of the abdomen and pelvis without contrast revealed diffuse anasarca, trace effusions, trace upper abdominal ascites suggesting fluid overload state. Dependent opacities in the lung bases probably atelectasis. Correlate to exclude pneumonia or aspiration. Correlate to exclude hepatitis with enlargement to 21.7 cm. PEG tube push and 2 are. 7 cm segment narrowed thickening of the colon at the hepatic flexure correlate for nonspecific colitis. Moderate bladder wall thickening appears chronic and could sybil present cystitis. 8 mm nodularity along the left posterior bladder wall could represent bladder calculus. Mild endplate deformity of L5. Patient presented with leukocytosis 16.4 which is resolved. Creatinine 0.4. Lactic acid 1.6. C-reactive protein 60.6. Coronavirus PCR not detected on 2 specimens. Influenza testing negative. Acute hepatitis panel negative. Urine culture is positive for Klebsiella pneumoniae and E. coli and patient is currently on Zosyn and vancomycin. She was febrile on presentation and has been running fevers, temperature max 102.8 in the past 24 hours. Blood culture no growth at 72 hours 2. REVIEW OF SYSTEMS Unable to obtain due to patient's mental status PHYSICAL EXAMINATION Gen: This is a 60-year-old thin cachectic appearing female patient. HEENT: Head is atraumatic, normocephalic. Pupils equal, round. Sclerae is anicteric. NECK: Supple. No JVD. No lymphadenopathy. No thyromegaly. LUNGS: Clear to auscultation. No wheezes or rhonchi. No intercostal retractions. HEART: Regular rate and rhythm. No murmur. ABDOMEN: Soft. PEG tube in place with no signs of infection. No masses. No tenderness. EXTREMITIES: No pedal edema. Fractures to the bilateral upper and lower extremities NEUROLOGICAL: Patient is awake, alert and unable to follow any instructions,. ASSESSMENT Persistent febrile illness most likely secondary to urinary tract infection Possibility of ischemic colitis contributing to fever PLAN Discontinue vancomycin and azithromycin Continue Zosyn 3.375 g IV piggyback every 8 hours The recommendations as patient progresses And tinea supportive care Thank you kindly for this consultation The above dictated assessment and findings were discussed with Dr. Kelley. The impression and plan of care have been directed as dictated. Fatmata Rubalcava nurse practitioner acting as scribe for Dr. Kelley. Past Medical History Past Medical History: Asthma, COPD, Hearing Disorder / Deafness, Hyperlipidemia, Pneumonia, Seizure Disorder, Sleep Apnea/CPAP/BIPAP, Syncope, Vascular Disorder Additional Past Medical History / Comment(s): Recent bowel obstruction with colostomy and then reversal 08/02/20, constipation, cognitive delay/mentally challenged, bronchitis, dysphagia/has peg tube to supplement, pt has had previous aspiration pneumonia and staff at [facility] states recently she has been having increased difficulty swallowing and have been utilizing peg tube more, tremors-sister states never determined cause, incontinent or urine and stool, normally walks with assist of one but not lately-too difficult, MELLY with no cpap but was wearing oxygen at 3L/NC until recently-it was dc/d, mild sensorineural bilateral hearing loss, sister states pt has hx of something ?cyst pericardial/R aortic arch, venous insufficiency, sister unsure if pt has ever had a seizure, L arm contractured, bilateral feet hammer toes, anemia, pancytopenia. History of Any Multi-Drug Resistant Organisms: None Reported Past Surgical History: Orthopedic Surgery Additional Past Surgical History / Comment(s): Peg tube, colectomy with ostomy placement, 08/02/20 reversal of colostomy; salvary gland left side removed, fx elbow surgery. Past Anesthesia/Blood Transfusion Reactions: No Reported Reaction Additional Past Anesthesia/Blood Transfusion Reaction / Comm: per [id number] hx of post-op reaction that she is aware of. Past Psychological History: Bipolar, Depression, Schizophrenia Additional Psychological History / Comment(s): Pt resides at [facility] in [place]. Her sister, Karol Birmingham is her legal guardian. Pt has peg tube. Patient nonambulatory. Smoking Status: Never smoker Past Alcohol Use History: None Reported Past Drug Use History: None Reported - Past Family History Mother Family Medical History: Vascular Disorder Additional Family Medical History / Comment(s): Mother of a ruptured brain aneurysm in her 50s. Father Family Medical History: Coronary Artery Disease (CAD), Diabetes Mellitus Additional Family Medical History / Comment(s): Father lived to be 92 yrs old. He had CABG Medications and Allergies Home Medications Medication Instructions Recorded Confirmed Type Amiodarone [Cordarone] 200 mg PEG/G-TUBE DAILY@0700 02/12/20 12/14/20 History polyethylene glycoL 3350 [Miralax] 17 gm PEG/G-TUBE DAILY@0700 07/19/20 12/14/20 History Saliva Stimulant Agents Comb.3 1 spray MUCOUS MEM 11/01/20 12/14/20 History [Biotene Moisturizing Mouth] TID@0700,1700,2100 Valproic Acid Oral Soln [Depakene 375 mg PEG/G-TUBE BID@0700,209911/01/20 12/14/20 History Syrup] levETIRAcetam ORAL SOLN [Keppra 500 mg PEG/G-TUBE BID@0700,2100 11/01/20 12/14/20 History Oral Soln] risperiDONE [RisperDAL] 2 mg PEG/G-TUBE DAILY@0700 #10 tab 11/06/20 12/14/20 Rx Acetaminophen Tab [Tylenol] 650 mg PEG/G-TUBE Q4H PRN 12/14/20 12/14/20 History Hydrophilic Cream [Triad Cream] 1 applic TOPICAL TID@0700,1500,209912/14/20 12/14/20 History Ipratropium-Albuterol Nebulize 3 ml INHALATION RT-QID PRN 12/14/20 12/14/20 History [Duoneb 0.5 mg-3 mg/3 ml Soln] LORazepam [Ativan] 0.5 mg PEG/G-TUBE BID@1200,1600 12/14/20 12/14/20 History LORazepam [Ativan] 1 mg PEG/G-TUBE HS@2100 12/14/20 12/14/20 History Magnesium Hydroxide [Milk of 2,400 mg PEG/G-TUBE Q48H PRN 12/14/20 12/14/20 History Magnesia] Na Phos,M-B/Na Phos,Di-Ba [Fleet 133 ml RECTAL Q96D PRN 12/14/20 12/14/20 History Adult] Nutren Renal Liquid 1 can PEG/G-TUBE TID PRN 12/14/20 12/14/20 History Reguloid Powder 48.57% 1 tbsp PEG/G-TUBE BID@0700,2100 12/14/20 12/14/20 History bisacodyL [Bisacodyl] 10 mg RECTAL DAILY PRN 12/14/20 12/14/20 History Allergies Allergy/AdvReac Type Severity Reaction Status Date / Time quetiapine Allergy Unknown Unknown Verified 12/14/20 23:36 lithium Allergy Unknown Verified 12/14/20 23:36 topiramate [From Topamax] Allergy Unknown Verified 12/14/20 23:36 Physical Exam Vitals: Vital Signs Temp Pulse Resp BP Pulse Ox 12/18/20 07:15 101.7 F H 73 22 152/67 99 12/18/20 02:00 99.3 F 80 16 116/54 94 L 12/17/20 19:32 102.0 F H 92 16 145/65 94 L 12/17/20 13:58 102.8 F H 86 20 115/65 99 Intake and Output 12/17/20 12/18/20 12/18/20 22:59 06:59 14:59 Intake Total 576 Output Total 450 Balance 126 Intake: Tube Feeding 456 Other 120 Output: Urine 450 Other: # Bowel Movements 1 Weight 47.5 kg Results CBC & Chem 7: 12/17/20 05:58 12/17/20 05:58 Labs: Abnormal Lab Results - Last 24 Hours (Table) 12/17/20 12/17/20 12/17/20 Range/Units 11:31 17:36 23:56 POC Glucose (mg/dL) 151 H 135 H 113 H (75-99) mg/dL 12/18/20 Range/Units 05:12 POC Glucose (mg/dL) 138 H (75-99) mg/dL Microbiology - Last 24 Hours (Table) 12/14/20 21:48 Blood Culture - Preliminary Blood No Growth after 72 hours 12/14/20 21:30 Blood Culture - Preliminary Blood No Growth after 72 hours 12/14/20 22:10 Urine Culture - Final Urine,Catheterized Klebsiella pneumoniae Escherichia coli
--- NOTE | 2020-12-18 16:13 | CDI ---
Documentation Clarification Form Date: 12/18/2020 01:59:00 PM From: Vesta Ortiz RN, CCDS Admit Date: 12/14/2020 09:27:00 PM Patient Name: Ramandeep Whitt Visit Number: [id number] Discharge Date: ATTENTION: The Clinical Documentation Specialists (CDI) and [facility] Coding Staff appreciate your assistance in clarifying documentation. Please respond to the clarification below the line at the bottom and electronically sign. The CDI & [facility] Coding staff will review the response and follow-up if needed. Please note: Queries are made part of the Legal Health Record. If you have any questions, please contact the author of this message via ITS. Dr. Anne-Marie Pham Cachectic has been documented in the ID consult. Dietary consult and assessment has poor nutrition intake. 12/18 ID physical exam: thin cachectic appearing female patient Please render your opinion on what this may indicate. History/Risk Factors: Cognitive delay/mentally challenged, Dysphagia/has peg tube, Difficulty swallowing, Aspiration pneumonia Clinical Indicators: 60-year-old cognitive delay/mentally challenged, female present to ED on 12/14 and ruled in for sepsis with UTI. She is a resident in a prison and staff reports she has been having increased difficulty swallowing and have been utilizing pet tube more. She has diffuse muscle atrophy noted with mild contractures throughout, per medical consult on 12/15/2012/14 Labs: WBC 16.4, Sodium 135, BUN 27, CR 0.50, Total Protein 6.4, Albumin 3.5 Current BMI: 18.0 Weight loss: physical finding: Underweight Insufficient energy intake: Yes, Poor, per nutrition assessment Loss of subcutaneous fat: cachectic Loss of muscle mass: Mild temporal muscle wasting Treatment: Dietary Consult: Yes Tube feedings: Nutren 2.0 goal rate of 38 ml/hr (start at 20 ml/hr and increase by 10 ml/hr every 12 hours as tolerated. 30 ml free water flush every 4 hours Monitor Tube Feedings In your professional opinion, can you please clarify if these findings signify one of the following conditions? Mild Protein-Calorie Malnutrition Moderate Protein-Calorie Malnutrition Severe Protein-Calorie Malnutrition Other condition, please specify Unable to determine (Last Revision: April 2019) I do not think that the patient has protein calorie malnutrition. She is on chronic PEG tube feeds and at goal. MTDD
--- NOTE | 2020-12-18 16:15 | P.GSCN ---
History of Present Illness Consult date: 12/18/20 History of present illness: CHIEF COMPLAINT: Fever HISTORY OF PRESENT ILLNESS: This is a 60-year-old female with past medical history of developmental delay she is a resident on adult foster care facility. She also has a past medical history of bowel obstruction with colostomy and reversal, dysphagia status post PEG tube placement 11/04/[address] Chow. Apparently patient had been at [facility] multiple times over the last few days for PEG tube replacement. Patient presented to the hospital with complaints of fever. She she also had a fall and has bilateral dislocations of her shoulders. She has been evaluated by orthopedics. She was diagnosed with possible UTI and pneumonia. She's on antibiotics. She had a computed tomography scan of the abdomen and pelvis had noted that the patient's PEG tube was pushed too far in. The balloon is inflated in the region of the second portion of the duodenal. There is also noted a 7 cm long segment narrowed and circumferentially thickened colon at the hepatic flexure. Correlate for nonspecific colitis. Patient has been having fevers. Infectious disease is following. Surgical service was consulted in regards to the displaced PEG tube. Patient is nonverbal. PAST MEDICAL HISTORY: See list. PAST SURGICAL HISTORY: See list. MEDICATIONS: See list. ALLERGIES: See list. SOCIAL HISTORY: No illicit drug use. REVIEW OF SYSTEMS: Unable to complete. Patient is nonverbal. PHYSICAL EXAM: VITAL SIGNS: Reviewed GENERAL: Well-developed in no acute distress. HEENT: No sclera icterus. Extraocular movements grossly intact. Moist buccal mucosa. Head is atraumatic, normocephalic. No nasal drainage. ABDOMEN: Soft. Nondistended. Nondistended. Patient's PEG tube is advanced to far. Skin is slightly irritated around PEG tube NEUROLOGIC: Is awake. She is nonverbal. LABORATORY DATA: WBC 5.24 Hgb is 8.6 platelets 158 Creatinine 0.4 Covid negative hepatitis panel negative influenza negative IMAGING: computed tomography scan of the abdomen and pelvis had noted that the patient's PEG tube was pushed too far in. The balloon is inflated in the region of the second portion of the duodenum. There is also noted a 7 cm long segment narrowed and circumferentially thickened colon at the hepatic flexure. Correlate for nonspecific colitis. Prominent dependent opacities in the lung bases probably atelectasis. Correlate to exclude pneumonia or aspiration. Liver measuring larger at 21.7 cm correlate to exclude hepatitis ASSESSMENT: 1. Displaced PEG tube. Per computed tomography scan findings the PEG tube balloon is inflated in the region of the second portion of the duodenum 2. History of dysphagia status post PEG tube placement with Dr. Chow on 11/04/2020 3. Fever followed by infectious disease 4. UTI 5. Thickening in the colon at the hepatic flexure correlate for nonspecific colitis noted on CAT scan PLAN: -Okay to resume tube feedings and medications can be placed through PEG tube -Plan to change PEG tube at bedside tomorrow, 12/19/[address] Chow -Continue supportive care -Antibiotics per ID Thank you for this consultation Physician Traffic Police Officer note has been reviewed by physician. Signing provider agrees with the documented findings, assessment, and plan of care. Past Medical History Past Medical History: Asthma, COPD, Hearing Disorder / Deafness, Hyperlipidemia, Pneumonia, Seizure Disorder, Sleep Apnea/CPAP/BIPAP, Syncope, Vascular Disorder Additional Past Medical History / Comment(s): Recent bowel obstruction with colostomy and then reversal 08/02/20, constipation, cognitive delay/mentally challenged, bronchitis, dysphagia/has peg tube to supplement, pt has had previo us aspiration pneumonia and staff at shelter states recently she has been having increased difficulty swallowing and have been utilizing peg tube more, tremors-sister states never determined cause, incontinent or urine and stool, normally walks with assist of one but not lately-too difficult, MELLY with no cpap but was wearing oxygen at 3L/NC until recently-it was dc/d, mild sensorineural bilateral hearing loss, sister states pt has hx of something ?cyst pericardial/R aortic arch, venous insufficiency, sister unsure if pt has ever had a seizure, L arm contractured, bilateral feet hammer toes, anemia, pancytopenia. History of Any Multi-Drug Resistant Organisms: None Reported Past Surgical History: Orthopedic Surgery Additional Past Surgical History / Comment(s): Peg tube, colectomy with ostomy placement, 08/02/20 reversal of colostomy; salvary gland left side removed, fx elbow surgery. Past Anesthesia/Blood Transfusion Reactions: No Reported Reaction Additional Past Anesthesia/Blood Transfusion Reaction / Comm: per [id number]-[id number] hx of post-op reaction that she is aware of. Past Psychological History: Bipolar, Depression, Schizophrenia Additional Psychological History / Comment(s): Pt resides at [facility] in [place]. Her sister, Karol Birmingham is her legal guardian. Pt has peg tube. Patient nonambulatory. Smoking Status: Never smoker Past Alcohol Use History: None Reported Past Drug Use History: None Reported - Past Family History Mother Family Medical History: Vascular Disorder Additional Family Medical History / Comment(s): Mother of a ruptured brain aneurysm in her 50s. Father Family Medical History: Coronary Artery Disease (CAD), Diabetes Mellitus Additional Family Medical History / Comment(s): Father lived to be 92 yrs old. He had CABG Medications and Allergies Home Medications Medication Instructions Recorded Confirmed Type Amiodarone [Cordarone] 200 mg PEG/G-TUBE DAILY@0700 02/12/20 12/14/20 History polyethylene glycoL 3350 [Miralax] 17 gm PEG/G-TUBE DAILY@0700 07/19/20 12/14/20 History Saliva Stimulant Agents Comb.3 1 spray MUCOUS MEM 11/01/20 12/14/20 History [Biotene Moisturizing Mouth] TID@0700,1700,2100 Valproic Acid Oral Soln [Depakene 375 mg PEG/G-TUBE BID@0700,2100 11/01/20 12/14/20 History Syrup] levETIRAcetam ORAL SOLN [Keppra 500 mg PEG/G-TUBE BID@0700,2100 11/01/2011/19 History Oral Soln] risperiDONE [RisperDAL] 2 mg PEG/G-TUBE DAILY@0700 #10 tab 11/06/20 12/14/20 Rx Acetaminophen Tab [Tylenol] 650 mg PEG/G-TUBE Q4H PRN 12/14/20 12/14/20 History Hydrophilic Cream [Triad Cream] 1 applic TOPICAL TID@0700,1500,2100 12/14/20 12/14/20 History Ipratropium-Albuterol Nebulize 3 ml INHALATION RT-QID PRN 12/14/20 12/14/20 History [Duoneb 0.5 mg-3 mg/3 ml Soln] LORazepam [Ativan] 0.5 mg PEG/G-TUBE BID@1200,1600 12/14/20 12/14/20 History LORazepam [Ativan] 1 mg PEG/G-TUBE HS@2100 12/14/20 12/14/20 History Magnesium Hydroxide [Milk of 2,400 mg PEG/G-TUBE Q48H PRN 12/14/20 12/14/20 History Magnesia] Na Phos,M-B/Na Phos,Di-Ba [Fleet 133 ml RECTAL Q96D PRN 12/14/20 12/14/20 History Adult] Nutren Renal Liquid 1 can PEG/G-TUBE TID PRN 12/14/20 12/14/20 History Reguloid Powder 48.57% 1 tbsp PEG/G-TUBE BID@0700,2100 12/14/20 12/14/20 History bisacodyL [Bisacodyl] 10 mg RECTAL DAILY PRN 12/14/20 12/14/20 History Allergies Allergy/AdvReac Type Severity Reaction Status Date / Time quetiapine Allergy Unknown Unknown Verified 12/14/20 23:36 lithium Allergy Unknown Verified 12/14/20 23:36 topiramate [From Topamax] Allergy Unknown Verified 12/14/20 23:36 Surgical - Exam Vital Signs Temp Pulse Resp BP Pulse Ox 101.4 F H 114 H 28 H 139/56 99 12/14/20 20:17 12/14/20 20:17 12/14/20 20:17 12/14/20 20:17 12/14/20 20:17 Results - Labs 12/17/20 05:58 12/17/20 05:58 Abnormal Lab Results - Last 24 Hours (Table) 12/17/20 12/17/20 12/18/20 Range/Units 17:36 23:56 05:12 POC Glucose (mg/dL) 135 H 113 H 138 H (75-99) mg/dL C-Reactive Protein (<10.0) mg/L 12/18/20 12/18/20 Range/Units 10:52 11:30 POC Glucose (mg/dL) 119 H (75-99) mg/dL C-Reactive Protein 60.6 H (<10.0) mg/L Microbiology - Last 24 Hours (Table) 12/14/20 21:48 Blood Culture - Preliminary Blood No Growth after 72 hours 12/14/20 21:30 Blood Culture - Preliminary Blood No Growth after 72 hours
--- NOTE | 2020-12-18 17:09 | P.PN ---
Subjective Progress Note Date: 12/18/20 (delayed charting seen at 1030) Principal diagnosis: fevers Patient is a 60-year-old female with past medical history of developmental delay, bowel obstruction with colostomy and reversal, dysphagia status post PEG tube placement with history of aspiration pneumonia, dyslipidemia who presented from her adult foster care secondary to fevers. Apparently she had been to [facility] multiple times over the last few days for PEG tube placement. She was noted to have significant right arm bruising on admission and she had fallen 4 days before admission and her buttocks. She was diagnosed with sepsis felt to be secondary to urinary tract infection was started on ceftriaxone 1 g daily. She was also noted to have bilateral soles or dislocations. Initial chest x-ray showed chronic widening of mediastinum, torturous aorta, and bilateral humeral dislocations. Bilateral shoulder x-rays showed anterior dislocation of humeral heads with possible chip fracture. Orthopedic surgery was consulted. They attempted intraoperative reduction which was unsuccessful and these were felt to be chronic dislocations. Her white count improved with initiation of the Rocephin however she continued to spike fevers. Her antibiotics were broadened to Zosyn, she continued to spike fevers on 12/17. Chest x-ray was obtained which showed central atelectasis bilaterally difficult to exclude pneumonia. CT abdomen and pelvis showed diffuse anasarca, trace effusion, dependent atelectasis, hepatomegaly, PEG tube into the duodenum, circumferential colon thickening, circumferential bladder wall thickening, and mild superior endplate deformity of L5. Repeat Covid was sent. Antibiotics were broadened to include vancomycin and Zithromax. Infectious disease was consulted. Patient seen and examined at bedside. She is nonverbal but moans. No acute events overnight General: non toxic, no distress, appears at stated age Derm: Bruising to right upper arm warm, dry Head: atraumatic, normocephalic, symmetric Eyes: EOMI, no lid lag, anicteric sclera Mouth: no lip lesion, mucus membranes dry, poor dentition Cardiovascular: S1S2 reg, no murmur, positive posterior tibial pulse bilateral, Lungs: Decreased breath sounds bilateral, no rhonchi, no rales , no accessory muscle use Abdominal: soft, nontender to palpation, no guarding, no appreciable organomegaly, PEG tube small amount of green drainage Ext: + gross muscle atrophy, no edema, Neuro: Bilateral upper extremity contractures, bilateral lower extremity contractures, resting tremor Psych: Awake Klebsiella and E. coli urinary tract infection, present on admission, sepsis on arrival -Continue with Zosyn, should also have been susceptible to Rocephin -Blood cultures negative to date -Infectious disease recommendations Anemia -Undetermined etiology -Repeat CBC pending. -Check iron studies, B12, RBC folate Hypernatremia -Suspect secondary to fluid resuscitation -Repeat in a.m. if continues elevated will need to increase free water flushes for tube feeds Pyrexia with normal white count -Attempted upper extremity venous Doppler due to bruising of right upper extremity-unable to be performed -Chest x-ray with atelectasis: Add Zithromax and vancomycin in case there is a component of pneumonia -CT abdomen and pelvis with possible colitis and displacement of the PEG tube -ID consulted Hyperglycemia -Hemoglobin A1c 5.6 Dysphagia, PEG tube advanced into duodenum -Continue tube feeds -Surgery recommendations Cognitive disability -will return to shelter -Sister is guardian -Supportive care Bladder calculi or mass - outpatient follow-up with urology after treatment of UTI Elevated LFTs, improved Dyslipidemia Seizure disorder MELLY Syncope DVT prophylaxis: heparin Discussed with: patient, nursing Anticipated discharge: 3-[address]: return to [facility] A total of 45 minutes was spent on the care of this complex patient more than 50% of the time was spent in counseling and care coordination. Objective - Vital Signs Vital signs: Vital Signs Temp 100.9 F H 12/18/20 14:00 Pulse 85 12/18/20 14:00 Resp 24 12/18/20 14:00 BP 158/69 12/18/20 14:00 Pulse Ox 97 12/18/20 14:00 Intake & Output 12/17/20 12/18/20 12/18/20 18:59 06:59 18:59 Intake Total 576 Output Total 450 Balance 126 Weight 47.5 kg Intake: Tube Feeding 456 Other 120 Output: Urine 450 Other: Voiding Method External Catheter External Catheter # Bowel Movements 1 - Labs CBC & Chem 7: 12/17/20 05:58 12/17/20 05:58 Labs: Abnormal Lab Results - Last 24 Hours (Table) 12/17/20 12/17/20 12/18/20 Range/Units 17:36 23:56 05:12 POC Glucose (mg/dL) 135 H 113 H 138 H (75-99) mg/dL C-Reactive Protein (<10.0) mg/L 12/18/20 12/18/20 Range/Units 10:52 11:30 POC Glucose (mg/dL) 119 H (75-99) mg/dL C-Reactive Protein 60.6 H (<10.0) mg/L Microbiology - Last 24 Hours (Table) 12/14/20 21:48 Blood Culture - Preliminary Blood No Growth after 72 hours 12/14/20 21:30 Blood Culture - Preliminary Blood No Growth after 72 hours
[2020-12-18 17:34] LABS: HCT 30.3 % (37.2-46.3); HGB 9.3 g/dL (12.0-15.0); MCH 32.3 pg (27.0-32.0); MCHC 30.7 g/dL (32.0-37.0); MCV 105.2 fL (80.0-97.0); Mean Platelet Volume 12.3 fL (9.5-12.2); Platelet Count 181 X 10*3/uL (140-440); RBC 2.88 X 10*6/uL (4.10-5.20); RDW 14.4 % (11.5-14.5); WBC 5.41 X 10*3/uL (4.50-10.00)
[2020-12-18 17:35] LABS: Glucose,Whole Blood 115 mg/dL (75-99)
[2020-12-18 18:02] LABS: Basophils % (A) 0 %; Eosinophils % (A) 1 %; Lymphocytes # (A) 0.9 k/uL (1.0-4.8); Lymphocytes % (A) 15 %; MCH 32.3 pg (25.0-35.0); MCHC 32.4 g/dL (31.0-37.0); MCV 99.8 fL (80.0-100.0); Mean Platelet Volume 8.1; Monocytes # (A) 0.4 k/uL (0-1.0); Monocytes % (A) 7 %; Neutrophils # (A) 4.5 k/uL (1.3-7.7); Neutrophils % (A) 77 %; Platelet Count 217 k/uL (150-450); RDW 13.4 % (11.5-15.5); WBC 5.9 k/uL (3.8-10.6)
[2020-12-18 18:11] LABS: African American GFR (CKD) >90 (>60 ml/min/1.73 sqM); Anion Gap 1 mmol/L; Blood Urea Nitrogen 22 mg/dL (7-17); Calcium 7.7 mg/dL (8.4-10.2); Carbon Dioxide 36 mmol/L (22-30); Chloride 110 mmol/L (98-107); Glucose 116 mg/dL (74-99); Non-African American GFR(CKD) >90 (>60 ml/min/1.73 sqM); Potassium 3.2 mmol/L (3.5-5.1); Sodium 147 mmol/L (137-145)
[2020-12-18] MEDS: LORazepam 1 MG TAB PEG/G-TUBE SCH (21:10)
[2020-12-18 23:46] LABS: Glucose,Whole Blood 121 mg/dL (75-99)
[2020-12-19 00:19] LABS: African American GFR (CKD) 121.1 (60.0-200.0); Anion Gap 13.6 mmol/L (4.00-12.00); Calcium 7.8 mg/dL (8.7-10.3); Carbon Dioxide 23.4 mmol/L (21.6-31.8); Non-African American GFR(CKD) 104.5 (60.0-200.0)
[2020-12-19] MEDS: ACETAMINOPHEN ORAL SUSP (PEDS) 3,840 MG/120 ML BOTTLE PO PRN ×2 (02:17→07:44)
[2020-12-19 05:47] LABS: Glucose,Whole Blood 112 mg/dL (75-99)
[2020-12-19] MEDS: levETIRAcetam ORAL SOLN 500 MG/5 ML CUP PEG/G-TUBE SCH ×2 (06:00→20:32)
[2020-12-19] MEDS: VALPROIC ACID ORAL SOLN 250 MG/5 ML CUP PEG/G-TUBE SCH ×2 (06:00→20:32)
[2020-12-19] MEDS: risperiDONE 2 MG TAB PEG/G-TUBE SCH (06:00)
[2020-12-19] MEDS: AMIODARONE 200 MG TAB PEG/G-TUBE SCH (06:02)
[2020-12-19] MEDS: HEPARIN SODIUM,PORCINE 5,000 UNIT/ML 1 ML VIAL SQ SCH ×3 (07:44→23:30)
[2020-12-19] MEDS: PIPERACILLIN-TAZOBACTAM 3.375 GM in SODIUM CHLORIDE 0.9% 100 ML IVPB SCH ×2 (07:44→16:27)
[2020-12-19 11:37] LABS: Glucose,Whole Blood 198 mg/dL (75-99)
[2020-12-19 11:52] LABS: HCT 30.3 % (37.2-46.3); HGB 9.2 g/dL (12.0-15.0); MCH 32.6 pg (27.0-32.0); MCHC 30.4 g/dL (32.0-37.0); MCV 107.4 fL (80.0-97.0); Mean Platelet Volume 11.7 fL (9.5-12.2); Platelet Count 269 X 10*3/uL (140-440); RBC 2.82 X 10*6/uL (4.10-5.20); RDW 14.4 % (11.5-14.5); WBC 5.57 X 10*3/uL (4.50-10.00)
[2020-12-19] MEDS: LORazepam 0.5 MG TAB PEG/G-TUBE SCH ×2 (12:58→16:28)
--- NOTE | 2020-12-19 14:05 | P.PN ---
Subjective Progress Note Date: 12/19/20 CHIEF COMPLAINT: Fever HISTORY OF PRESENT ILLNESS: Surgical services is following regarding displaced peg tube. PEG tube was exchanged by Dr. Chow at bedside. Patient still has been febrile with T-max of 103. She is followed by infectious disease. She is on antibiotics for UTI. WBC 5.57 PHYSICAL EXAM: VITAL SIGNS: Reviewed. GENERAL: Well-developed in no acute distress. HEENT: No sclera icterus. Extraocular movements grossly intact. Moist buccal mucosa. Head is atraumatic, normocephalic. ABDOMEN: Soft. Nondistended. Nontender. PEG tube site clean dry and intact NEUROLOGIC: Nonverbal ASSESSMENT: 1. Displaced PEG tube. Patient is status post peg tube exchange with MELISSA PEG tube by Dr. Chow at the bedside. 2. History of dysphagia status post PEG tube placement with Dr. Chow on 11/04/2020 PLAN: -Okay to resume tube feedings -Continue supportive care Physician Business Applications Analyst note has been reviewed by physician. Signing provider agrees with the documented findings, assessment, and plan of care. Objective - Vital Signs Vital signs: Vital Signs Temp 99.7 F H 12/19/20 10:43 Pulse 88 12/19/20 10:43 Resp 16 12/19/20 10:43 BP 154/69 12/19/20 10:43 Pulse Ox 95 12/19/20 10:43 Intake & Output 12/18/20 12/19/20 12/19/20 18:59 06:59 18:59 Output Total 250 400 Balance -250 -400 Weight 49.2 kg Output: Urine 250 400 Other: Voiding Method External Catheter External Catheter External Catheter # Bowel Movements 1 - Labs CBC & Chem 7: 12/19/20 06:32 12/18/20 17:44 Labs: Abnormal Lab Results - Last 24 Hours (Table) 12/18/20 12/18/20 12/18/20 Range/Units 05:38 05:38 11:30 RBC 2.88 L (4.10-5.20) X 10*6/uL Hgb 9.3 L (12.0-15.0) g/dL Hct 30.3 L (37.2-46.3) % MCV 105.2 H (80.0-97.0) fL MCH 32.3 H (27.0-32.0) pg MCHC 30.7 L (32.0-37.0) g/dL MPV 12.3 H (9.5-12.2) fL Absolute Nucleated RBC (0.00-0.00) X 10*3/uL Lymphocytes # (1.0-4.8) k/uL NRBC/100 WBC Diff (0.0-0.0) /100 WBCS Sodium 152 H (135-145) mmol/L Potassium (3.5-5.1) mmol/L Chloride 115 H (96-109) mmol/L Carbon Dioxide (22-30) mmol/L Anion Gap 13.60 H (4.00-12.00) mmol/L BUN (7-17) mg/dL Creatinine 0.5 L (0.6-1.5) mg/dL BUN/Creatinine Ratio 54.00 H (12.00-20.00) Ratio Glucose (74-99) mg/dL POC Glucose (mg/dL) (75-99) mg/dL Calcium 7.8 L (8.7-10.3) mg/dL Procalcitonin 0.14 H (0.02-0.09) ng/mL 12/18/20 12/18/20 12/18/20 Range/Units 17:33 17:44 17:44 RBC 2.80 L (4.10-5.20) X 10*6/uL Hgb 9.0 L (12.0-15.0) g/dL Hct 28.0 L (37.2-46.3) % MCV (80.0-97.0) fL MCH (27.0-32.0) pg MCHC (32.0-37.0) g/dL MPV (9.5-12.2) fL Absolute Nucleated RBC (0.00-0.00) X 10*3/uL Lymphocytes # 0.9 L (1.0-4.8) k/uL NRBC/100 WBC Diff (0.0-0.0) /100 WBCS Sodium 147 H (135-145) mmol/L Potassium 3.2 L (3.5-5.1) mmol/L Chloride 110 H (96-109) mmol/L Carbon Dioxide 36 H (22-30) mmol/L Anion Gap (4.00-12.00) mmol/L BUN 22 H (7-17) mg/dL Creatinine 0.47 L (0.6-1.5) mg/dL BUN/Creatinine Ratio (12.00-20.00) Ratio Glucose 116 H (74-99) mg/dL POC Glucose (mg/dL) 115 H (75-99) mg/dL Calcium 7.7 L (8.7-10.3) mg/dL Procalcitonin (0.02-0.09) ng/mL 12/18/20 12/19/20 12/19/20 Range/Units 23:45 05:34 06:32 RBC 2.82 L (4.10-5.20) X 10*6/uL Hgb 9.2 L (12.0-15.0) g/dL Hct 30.3 L (37.2-46.3) % MCV 107.4 H (80.0-97.0) fL MCH 32.6 H (27.0-32.0) pg MCHC 30.4 L (32.0-37.0) g/dL MPV (9.5-12.2) fL Absolute Nucleated RBC 0.03 H (0.00-0.00) X 10*3/uL Lymphocytes # (1.0-4.8) k/uL NRBC/100 WBC Diff 0.5 H (0.0-0.0) /100 WBCS Sodium (135-145) mmol/L Potassium (3.5-5.1) mmol/L Chloride (96-109) mmol/L Carbon Dioxide (22-30) mmol/L Anion Gap (4.00-12.00) mmol/L BUN (7-17) mg/dL Creatinine (0.6-1.5) mg/dL BUN/Creatinine Ratio (12.00-20.00) Ratio Glucose (74-99) mg/dL POC Glucose (mg/dL) 121 H 112 H (75-99) mg/dL Calcium (8.7-10.3) mg/dL Procalcitonin (0.02-0.09) ng/mL 12/19/20 Range/Units 11:35 RBC (4.10-5.20) X 10*6/uL Hgb (12.0-15.0) g/dL Hct (37.2-46.3) % MCV (80.0-97.0) fL MCH (27.0-32.0) pg MCHC (32.0-37.0) g/dL MPV (9.5-12.2) fL Absolute Nucleated RBC (0.00-0.00) X 10*3/uL Lymphocytes # (1.0-4.8) k/uL NRBC/100 WBC Diff (0.0-0.0) /100 WBCS Sodium (135-145) mmol/L Potassium (3.5-5.1) mmol/L Chloride (96-109) mmol/L Carbon Dioxide (22-30) mmol/L Anion Gap (4.00-12.00) mmol/L BUN (7-17) mg/dL Creatinine (0.6-1.5) mg/dL BUN/Creatinine Ratio (12.00-20.00) Ratio Glucose (74-99) mg/dL POC Glucose (mg/dL) 198 H (75-99) mg/dL Calcium (8.7-10.3) mg/dL Procalcitonin (0.02-0.09) ng/mL Microbiology - Last 24 Hours (Table) 12/14/20 21:48 Blood Culture - Preliminary Blood No Growth after 96 hours 12/14/20 21:30 Blood Culture - Preliminary Blood No Growth after 96 hours 12/17/20 14:35 Blood Culture - Preliminary Blood No Growth after 24 hours 12/17/20 14:55 Blood Culture - Preliminary Blood No Growth after 24 hours
--- NOTE | 2020-12-19 16:40 | US ---
EXAMINATION TYPE: US venous doppler duplex LE DATE OF EXAM: 12/19/2020 3:30 PM COMPARISON: NONE CLINICAL HISTORY: fevers, edema. edema exam limited due to patient shaking and unable to bend legs. SIDE PERFORMED: Bilateral TECHNIQUE: The lower extremity deep venous system is examined utilizing real time linear array sonog gabby with graded compression, doppler sonography and color-flow sonography. VESSELS IMAGED: Common Femoral Vein Deep Femoral Vein Greater Saphenous Vein * Femoral Vein Popliteal Vein Small Saphenous Vein * Proximal Calf Veins (* superficial vessels) There is normal flow, compressibility, vascular waveforms. Right Leg: Negative within vessels scanned unable to scan Popliteal Vein. Left Leg: Negative within vessels scanned unable to scan Popliteal Vein. IMPRESSION: No evident deep venous arthrosis at or above the knees bilaterally.
[2020-12-19 16:43] LABS: Ferritin 170.2 ng/mL (10.0-291.0)
--- NOTE | 2020-12-19 16:47 | P.PN ---
Subjective Progress Note Date: 12/19/20 (delayed charting seen at 0900) Principal diagnosis: fevers Patient is a 60-year-old female with past medical history of developmental delay, bowel obstruction with colostomy and reversal, dysphagia status post PEG tube placement with history of aspiration pneumonia, dyslipidemia who presented from her adult foster care secondary to fevers. Apparently she had been to [facility] multiple times over the last few days for PEG tube placement. She was noted to have significant right arm bruising on admission and she had fallen 4 days before admission and her buttocks. She was diagnosed with sepsis felt to be secondary to urinary tract infection was started on ceftriaxone 1 g daily. She was also noted to have bilateral soles or dislocations. Initial chest x-ray showed chronic widening of mediastinum, torturous aorta, and bilateral humeral dislocations. Bilateral shoulder x-rays showed anterior dislocation of humeral heads with possible chip fracture. Orthopedic surgery was consulted. They attempted intraoperative reduction which was unsuccessful and these were felt to be chronic dislocations. Her white count improved with initiation of the Rocephin however she continued to spike fevers. Her antibiotics were broadened to Zosyn, she continued to spike fevers on 12/17. Chest x-ray was obtained which showed central atelectasis bilaterally difficult to exclude pneumonia. CT abdomen and pelvis showed diffuse anasarca, trace effusion, dependent atelectasis, hepatomegaly, PEG tube into the duodenum, circumferential colon thickening, circumferential bladder wall thickening, and mild superior endplate deformity of L5. Repeat Covid was sent. Antibiotics were broadened to include vancomycin and Zithromax. Infectious disease was consulted. They discontinued vanco and zithromax. Surgery will change out peg tube on 12/19 at bedside. Patient seen and examined at bedside. She continually chewing no verbal Per nursing continued to spike fevers overnight. General: ill appearing, no distress, appears at stated age Derm: Bruising to right upper arm warm, dry Head: atraumatic, normocephalic, symmetric Eyes: EOMI, no lid lag, anicteric sclera Mouth: no lip lesion, mucus membranes dry, poor dentition Cardiovascular: S1S2 reg, no murmur, positive posterior tibial pulse bilateral, Lungs: Decreased breath sounds bilateral, no rhonchi, no rales , no accessory muscle use Abdominal: soft, nontender to palpation, no guarding, no appreciable organomegaly, PEG tube small amount of green drainage Ext: + gross muscle atrophy, no edema, Neuro: Bilateral upper extremity contractures, bilateral lower extremity contractures, resting tremor Psych: Awake Klebsiella and E. coli urinary tract infection, present on admission, sepsis on arrival -Continue with Zosyn, should also have been susceptible to Rocephin -Blood cultures negative to date -Infectious disease recommendations appreciated Anemia -Undetermined etiology -HgB stable - iron studies, B12, RBC folate- pending Hypernatremia -free water via peg tube increased from 40 to 45 cc. - await labs. not avialable at 1645, stat repat ordered Pyrexia with normal white count -Attempted upper extremity venous Doppler due to bruising of right upper extremity-unable to be performed -Chest x-ray with atelectasis: Add Zithromax and vancomycin in case there is a component of pneumonia -CT abdomen and pelvis with possible colitis and displacement of the PEG tube -ID continue with zosyn- check flu and venous dopplers Hyperglycemia -Hemoglobin A1c 5.6 Dysphagia, PEG tube advanced into duodenum -Continue tube feeds -Surgery will replace peg tube at bedside. Cognitive disability -will return to residential -Sister is guardian -Supportive care Bladder calculi or mass - outpatient follow-up with urology after treatment of UTI Elevated LFTs, improved Dyslipidemia Seizure disorder MELLY Syncope DVT prophylaxis: heparin Discussed with: patient, nursing Anticipated discharge: 3-[address]: return to [facility] A total of 35 minutes was spent on the care of this complex patient more than 50% of the time was spent in counseling and care coordination. Objective - Vital Signs Vital signs: Vital Signs Temp 99.8 F H 12/19/20 14:00 Pulse 78 12/19/20 14:00 Resp 16 12/19/20 14:00 BP 138/62 12/19/20 14:00 Pulse Ox 99 12/19/20 15:39 Intake & Output 12/18/20 12/19/20 12/19/20 18:59 06:59 18:59 Output Total 250 400 900 Balance -250 -400 -900 Weight 49.2 kg 49.2 kg Output: Urine 250 400 900 Other: Voiding Method External Catheter External Catheter External Catheter # Bowel Movements 1 - Labs CBC & Chem 7: 12/19/20 06:32 12/18/20 17:44 Labs: Abnormal Lab Results - Last 24 Hours (Table) 12/18/20 12/18/20 12/18/20 Range/Units 05:38 05:38 11:30 RBC 2.88 L (4.10-5.20) X 10*6/uL Hgb 9.3 L (12.0-15.0) g/dL Hct 30.3 L (37.2-46.3) % MCV 105.2 H (80.0-97.0) fL MCH 32.3 H (27.0-32.0) pg MCHC 30.7 L (32.0-37.0) g/dL MPV 12.3 H (9.5-12.2) fL Absolute Nucleated RBC (0.00-0.00) X 10*3/uL Lymphocytes # (1.0-4.8) k/uL NRBC/100 WBC Diff (0.0-0.0) /100 WBCS Sodium 152 H (135-145) mmol/L Potassium (3.5-5.1) mmol/L Chloride 115 H (96-109) mmol/L Carbon Dioxide (22-30) mmol/L Anion Gap 13.60 H (4.00-12.00) mmol/L BUN (7-17) mg/dL Creatinine 0.5 L (0.6-1.5) mg/dL BUN/Creatinine Ratio 54.00 H (12.00-20.00) Ratio Glucose (74-99) mg/dL POC Glucose (mg/dL) (75-99) mg/dL Calcium 7.8 L (8.7-10.3) mg/dL Procalcitonin 0.14 H (0.02-0.09) ng/mL 12/18/20 12/18/20 12/18/20 Range/Units 17:33 17:44 17:44 RBC 2.80 L (4.10-5.20) X 10*6/uL Hgb 9.0 L (12.0-15.0) g/dL Hct 28.0 L (37.2-46.3) % MCV (80.0-97.0) fL MCH (27.0-32.0) pg MCHC (32.0-37.0) g/dL MPV (9.5-12.2) fL Absolute Nucleated RBC (0.00-0.00) X 10*3/uL Lymphocytes # 0.9 L (1.0-4.8) k/uL NRBC/100 WBC Diff (0.0-0.0) /100 WBCS Sodium 147 H (135-145) mmol/L Potassium 3.2 L (3.5-5.1) mmol/L Chloride 110 H (96-109) mmol/L Carbon Dioxide 36 H (22-30) mmol/L Anion Gap (4.00-12.00) mmol/L BUN 22 H (7-17) mg/dL Creatinine 0.47 L (0.6-1.5) mg/dL BUN/Creatinine Ratio (12.00-20.00) Ratio Glucose 116 H (74-99) mg/dL POC Glucose (mg/dL) 115 H (75-99) mg/dL Calcium 7.7 L (8.7-10.3) mg/dL Procalcitonin (0.02-0.09) ng/mL 12/18/20 12/19/20 12/19/20 Range/Units 23:45 05:34 06:32 RBC 2.82 L (4.10-5.20) X 10*6/uL Hgb 9.2 L (12.0-15.0) g/dL Hct 30.3 L (37.2-46.3) % MCV 107.4 H (80.0-97.0) fL MCH 32.6 H (27.0-32.0) pg MCHC 30.4 L (32.0-37.0) g/dL MPV (9.5-12.2) fL Absolute Nucleated RBC 0.03 H (0.00-0.00) X 10*3/uL Lymphocytes # (1.0-4.8) k/uL NRBC/100 WBC Diff 0.5 H (0.0-0.0) /100 WBCS Sodium (135-145) mmol/L Potassium (3.5-5.1) mmol/L Chloride (96-109) mmol/L Carbon Dioxide (22-30) mmol/L Anion Gap (4.00-12.00) mmol/L BUN (7-17) mg/dL Creatinine (0.6-1.5) mg/dL BUN/Creatinine Ratio (12.00-20.00) Ratio Glucose (74-99) mg/dL POC Glucose (mg/dL) 121 H 112 H (75-99) mg/dL Calcium (8.7-10.3) mg/dL Procalcitonin (0.02-0.09) ng/mL 12/19/20 Range/Units 11:35 RBC (4.10-5.20) X 10*6/uL Hgb (12.0-15.0) g/dL Hct (37.2-46.3) % MCV (80.0-97.0) fL MCH (27.0-32.0) pg MCHC (32.0-37.0) g/dL MPV (9.5-12.2) fL Absolute Nucleated RBC (0.00-0.00) X 10*3/uL Lymphocytes # (1.0-4.8) k/uL NRBC/100 WBC Diff (0.0-0.0) /100 WBCS Sodium (135-145) mmol/L Potassium (3.5-5.1) mmol/L Chloride (96-109) mmol/L Carbon Dioxide (22-30) mmol/L Anion Gap (4.00-12.00) mmol/L BUN (7-17) mg/dL Creatinine (0.6-1.5) mg/dL BUN/Creatinine Ratio (12.00-20.00) Ratio Glucose (74-99) mg/dL POC Glucose (mg/dL) 198 H (75-99) mg/dL Calcium (8.7-10.3) mg/dL Procalcitonin (0.02-0.09) ng/mL Microbiology - Last 24 Hours (Table) 12/14/20 21:48 Blood Culture - Preliminary Blood No Growth after 96 hours 12/14/20 21:30 Blood Culture - Preliminary Blood No Growth after 96 hours 12/17/20 14:35 Blood Culture - Preliminary Blood No Growth after 24 hours 12/17/20 14:55 Blood Culture - Preliminary Blood No Growth after 24 hours
[2020-12-19 16:49] LABS: Glucose,Whole Blood 119 mg/dL (75-99)
[2020-12-19 17:34] LABS: African American GFR (CKD) >90 (>60 ml/min/1.73 sqM); Anion Gap 3 mmol/L; Blood Urea Nitrogen 18 mg/dL (7-17); Calcium 7.6 mg/dL (8.4-10.2); Carbon Dioxide 38 mmol/L (22-30); Chloride 105 mmol/L (98-107); Glucose 119 mg/dL (74-99); Non-African American GFR(CKD) >90 (>60 ml/min/1.73 sqM); Sodium 146 mmol/L (137-145)
[2020-12-19 17:42] LABS: % Iron Saturation 13.64 (12.00-45.00); African American GFR (CKD) 121.1 (60.0-200.0); Anion Gap 14.8 mmol/L (4.00-12.00); Calcium 7.6 mg/dL (8.7-10.3); Carbon Dioxide 24.2 mmol/L (21.6-31.8); Non-African American GFR(CKD) 104.5 (60.0-200.0); Potassium 3.6 mmol/L (3.5-5.5)
[2020-12-19] MEDS ORDERED: POTASSIUM CHLORIDE 20 MEQ in WATER FOR INJECTION 1 100ML.BAG IVPB STA (17:49)
[2020-12-19] MEDS: LORazepam 1 MG TAB PEG/G-TUBE SCH (20:31)
[2020-12-19] MEDS: ERTAPENEM 1 GM in SODIUM CHLORIDE 0.9% 50 ML IVPB SCH (23:30)
[2020-12-19 23:35] LABS: Glucose,Whole Blood 135 mg/dL (75-99)
--- NOTE | 2020-12-19 23:55 | PN ---
PROGRESS NOTE DATE OF SERVICE: 12/19/2020 REASON FOR FOLLOWUP: Fever. INTERVAL HISTORY: Patient is still spiking a fever of 101.5 degrees this morning. The patient is hemodynamically stable, and is currently breathing comfortably on nasal cannula oxygen. No vomiting, diarrhea or any other changes reported by the nursing staff. The patient herself unable to provide any history. PHYSICAL EXAMINATION: Blood pressure 138/66, pulse of 84. Temperature 100.3, T-max 101. She is 97% on 10 L nasal cannula. General description is a middle-aged female lying in bed in no distress. Respiratory system: Unlabored breathing, decreased breath sounds in the base. No wheeze. Heart S1, S2. Regular rate and rhythm. ABDOMEN: Soft, no tenderness. Extremities: No edema of the feet. LABS: Creatinine is 9.1, white count of 5.57, BUN of 22, creatinine 0.47. DIAGNOSTIC IMPRESSION AND PLAN: Patient with fever, concerning for urinary source, did have positive UA and urine grew Klebsiella and drug-resistant E coli, questionable ESBL as the patient has persistent fever despite being on Zosyn. We will repeat a UA and cultures, chest x-ray and switch antibiotic therapy to Invanz and monitor clinical course closely. Continue supportive care. MMODL / IJN: [id number] /
[2020-12-20 04:26] LABS: Appearance,Urine Clear (Clear); Bilirubin,Urine Negative (Negative); Blood,Urine Negative (Negative); Color,Urine Yellow; Glucose,Urine (UA) Negative (Negative); Ketones,Urine Negative (Negative); Leukocyte Esterase,Urine Negative (Negative); Nitrite,Urine Negative (Negative); Protein,Urine 1+ (Negative); RBC,Urine <1 /hpf (0-5); Specific Gravity,Urine 1.034 (1.001-1.035); WBC,Urine 2 /hpf (0-5)
[2020-12-20 05:46] LABS: Glucose,Whole Blood 133 mg/dL (75-99)
[2020-12-20 05:51] LABS: Basophils % (A) 0 %; Eosinophils # (A) 0.1 k/uL (0-0.7); Eosinophils % (A) 1 %; HGB 10.7 gm/dL (11.4-16.0); Lymphocytes # (A) 0.7 k/uL (1.0-4.8); Lymphocytes % (A) 9 %; MCH 32.8 pg (25.0-35.0); MCHC 32.5 g/dL (31.0-37.0); MCV 101.1 fL (80.0-100.0); Macrocytosis Slight; Mean Platelet Volume 7.9; Monocytes # (A) 0.4 k/uL (0-1.0); Monocytes % (A) 5 %; Neutrophils % (A) 84 %; Platelet Count 242 k/uL (150-450); RBC 3.26 m/uL (3.80-5.40); RDW 13.5 % (11.5-15.5); WBC 8.3 k/uL (3.8-10.6)
[2020-12-20 06:01] LABS: ALT 30 U/L (4-34); AST 31 U/L (14-36); African American GFR (CKD) >90 (>60 ml/min/1.73 sqM); Albumin 2.8 g/dL (3.5-5.0); Albumin/Globulin Ratio 1.1; Alkaline Phosphatase 65 U/L (38-126); Anion Gap 4 mmol/L; Blood Urea Nitrogen 21 mg/dL (7-17); C Reactive Protein 26.8 mg/L (<10.0); Calcium 7.9 mg/dL (8.4-10.2); Carbon Dioxide 33 mmol/L (22-30); Chloride 108 mmol/L (98-107); Globulin 2.6 g/dL; Glucose 119 mg/dL (74-99); Non-African American GFR(CKD) >90 (>60 ml/min/1.73 sqM); Potassium 3.4 mmol/L (3.5-5.1); Sodium 145 mmol/L (137-145); Total Bilirubin 0.5 mg/dL (0.2-1.3); Total Protein 5.4 g/dL (6.3-8.2)
[2020-12-20] MEDS: AMIODARONE 200 MG TAB PEG/G-TUBE SCH (06:03)
[2020-12-20] MEDS: risperiDONE 2 MG TAB PEG/G-TUBE SCH (06:03)
[2020-12-20] MEDS: levETIRAcetam ORAL SOLN 500 MG/5 ML CUP PEG/G-TUBE SCH ×2 (06:04→23:03)
[2020-12-20] MEDS: VALPROIC ACID ORAL SOLN 250 MG/5 ML CUP PEG/G-TUBE SCH ×2 (06:04→23:03)
[2020-12-20] MEDS: HEPARIN SODIUM,PORCINE 5,000 UNIT/ML 1 ML VIAL SQ SCH ×3 (07:40→23:03)
[2020-12-20] MEDS: ACETAMINOPHEN ORAL SUSP (PEDS) 3,840 MG/120 ML BOTTLE PO PRN ×4 (07:40→23:06)
--- NOTE | 2020-12-20 07:47 | XR ---
EXAMINATION TYPE: XR chest 1V portable DATE OF EXAM: 12/20/2020 COMPARISON: 12/17/2020 INDICATION: Pneumonia TECHNIQUE: Single frontal view of the chest is obtained. FINDINGS: The heart size is normal. The pulmonary vasculature is normal. There are mild streaky opacities in the upper lung moncada bilaterally, present previously. Some left midlung plate atelectasis is improving. No new infiltrates are evident. IMPRESSION: 1. Mild improving linear opacities may be related to atelectasis or resolving pneumonia. Continued fo llow-up is recommended.
[2020-12-20] MEDS ORDERED: POTASSIUM CHLORIDE 20 MEQ in WATER FOR INJECTION 1 100ML.BAG IVPB STA (07:54)
--- NOTE | 2020-12-20 10:05 | US ---
EXAMINATION TYPE: US venous doppler duplex UE RT DATE OF EXAM: 12/20/2020 COMPARISON: NONE CLINICAL HISTORY: clot and edema. Ecchymosis to right upper arm with history of bilateral ?? shoulder fractures, and right arm is unable to be externally rotated to complete full arm survey, due to dejuan ent intolerance. Constant patient motion/head motion was also occurring during limited US exam. SIDE PERFORMED: Right Right Arm: Negative for DVT with evaluation of Right IJV, Right Subclavian Vein, and proximal Right A xillary Vein. Constant patient motion caused vein compression, thus limited US. RNBisi is rafael re of limited US. Hypoechoic area seen within muscle = 4.2 x 2.2 x 1.3cm and is noted at patient's upper arm may be a s mall hematoma. IMPRESSION: 1. Right upper extremity ultrasound negative for deep venous thrombosis. There is limitation of this exam. 2. Small hypoechoic collection within the upper extremity musculature may be a small hematoma.
[2020-12-20 11:34] LABS: Glucose,Whole Blood 121 mg/dL (75-99)
--- NOTE | 2020-12-20 11:51 | P.PN ---
Subjective Progress Note Date: 12/20/20 CHIEF COMPLAINT: Fever HISTORY OF PRESENT ILLNESS: Surgical services is following regarding displaced peg tube. PEG tube was exchanged by Dr. Chow at bedside yesterday. Tube feedings are resumed. She is tolerating tube feedings. Patient still has been febrile with T-max of 102.4. She is followed by infectious disease. She is on antibiotics for UTI. WBC 8.3 PHYSICAL EXAM: VITAL SIGNS: Reviewed. GENERAL: Well-developed in no acute distress. HEENT: No sclera icterus. Extraocular movements grossly intact. Moist buccal mucosa. Head is atraumatic, normocephalic. ABDOMEN: Soft. Nondistended. Nontender. PEG tube site clean dry and intact NEUROLOGIC: Nonverbal ASSESSMENT: 1. Displaced PEG tube. Patient is status post peg tube exchange with MELISSA PEG tube by Dr. Chow at the bedside. 2. History of dysphagia status post PEG tube placement with Dr. Chow on 11/04/2020 PLAN: -Continue tube feedings -Continue supportive care Physician Keyseater Operator note has been reviewed by physician. Signing provider agrees with the documented findings, assessment, and plan of care. Objective - Vital Signs Vital signs: Vital Signs Temp 102.4 F H 12/20/20 07:41 Pulse 94 12/20/20 08:00 Resp 16 12/20/20 08:00 BP 144/72 12/20/20 07:41 Pulse Ox 98 12/20/20 07:41 Intake & Output 12/19/20 12/20/20 12/20/20 18:59 06:59 18:59 Intake Total 456 114 Output Total 900 Balance -444 114 Weight 49.2 kg 54 kg Intake: Tube Feeding 456 114 Output: Urine 900 Other: Voiding Method External Catheter External Catheter External Catheter - Labs CBC & Chem 7: 12/20/20 05:23 12/20/20 05:23 Labs: Abnormal Lab Results - Last 24 Hours (Table) 12/19/20 12/19/20 12/19/20 Range/Units 06:32 06:32 16:47 RBC 2.82 L (4.10-5.20) X 10*6/uL Hgb 9.2 L (12.0-15.0) g/dL Hct 30.3 L (37.2-46.3) % MCV 107.4 H (80.0-97.0) fL MCH 32.6 H (27.0-32.0) pg MCHC 30.4 L (32.0-37.0) g/dL Absolute Nucleated RBC 0.03 H (0.00-0.00) X 10*3/uL Lymphocytes # (1.0-4.8) k/uL NRBC/100 WBC Diff 0.5 H (0.0-0.0) /100 WBCS D-Dimer (<0.60) mg/L FEU Sodium 153 H (135-145) mmol/L Potassium (3.5-5.1) mmol/L Chloride 114 H (96-109) mmol/L Carbon Dioxide (22-30) mmol/L Anion Gap 14.80 H (4.00-12.00) mmol/L BUN (7-17) mg/dL Creatinine 0.5 L (0.6-1.5) mg/dL BUN/Creatinine Ratio 44.00 H (12.00-20.00) Ratio Glucose 118 H (70-110) mg/dL POC Glucose (mg/dL) 119 H (75-99) mg/dL Calcium 7.6 L (8.7-10.3) mg/dL Iron 30 L (50-170) ug/dL TIBC 220 L (228-460) ug/dL C-Reactive Protein (<10.0) mg/L Total Protein (6.3-8.2) g/dL Albumin (3.5-5.0) g/dL Urine Protein (Negative) 12/19/20 12/19/20 12/20/20 Range/Units 16:56 23:33 03:50 RBC (4.10-5.20) X 10*6/uL Hgb (12.0-15.0) g/dL Hct (37.2-46.3) % MCV (80.0-97.0) fL MCH (27.0-32.0) pg MCHC (32.0-37.0) g/dL Absolute Nucleated RBC (0.00-0.00) X 10*3/uL Lymphocytes # (1.0-4.8) k/uL NRBC/100 WBC Diff (0.0-0.0) /100 WBCS D-Dimer (<0.60) mg/L FEU Sodium 146 H (135-145) mmol/L Potassium 3.0 L (3.5-5.1) mmol/L Chloride (96-109) mmol/L Carbon Dioxide 38 H (22-30) mmol/L Anion Gap (4.00-12.00) mmol/L BUN 18 H (7-17) mg/dL Creatinine 0.44 L (0.6-1.5) mg/dL BUN/Creatinine Ratio (12.00-20.00) Ratio Glucose 119 H (70-110) mg/dL POC Glucose (mg/dL) 135 H (75-99) mg/dL Calcium 7.6 L (8.7-10.3) mg/dL Iron (50-170) ug/dL TIBC (228-460) ug/dL C-Reactive Protein (<10.0) mg/L Total Protein (6.3-8.2) g/dL Albumin (3.5-5.0) g/dL Urine Protein 1+ H (Negative) 12/20/20 12/20/20 12/20/20 Range/Units 05:23 05:23 05:23 RBC 3.26 L (4.10-5.20) X 10*6/uL Hgb 10.7 L (12.0-15.0) g/dL Hct 33.0 L (37.2-46.3) % MCV 101.1 H (80.0-97.0) fL MCH (27.0-32.0) pg MCHC (32.0-37.0) g/dL Absolute Nucleated RBC (0.00-0.00) X 10*3/uL Lymphocytes # 0.7 L (1.0-4.8) k/uL NRBC/100 WBC Diff (0.0-0.0) /100 WBCS D-Dimer 6.96 H (<0.60) mg/L FEU Sodium (135-145) mmol/L Potassium 3.4 L (3.5-5.1) mmol/L Chloride 108 H (96-109) mmol/L Carbon Dioxide 33 H (22-30) mmol/L Anion Gap (4.00-12.00) mmol/L BUN 21 H (7-17) mg/dL Creatinine 0.44 L (0.6-1.5) mg/dL BUN/Creatinine Ratio (12.00-20.00) Ratio Glucose 119 H (70-110) mg/dL POC Glucose (mg/dL) (75-99) mg/dL Calcium 7.9 L (8.7-10.3) mg/dL Iron (50-170) ug/dL TIBC (228-460) ug/dL C-Reactive Protein 26.8 H (<10.0) mg/L Total Protein 5.4 L (6.3-8.2) g/dL Albumin 2.8 L (3.5-5.0) g/dL Urine Protein (Negative) 12/20/20 12/20/20 Range/Units 05:44 11:32 RBC (4.10-5.20) X 10*6/uL Hgb (12.0-15.0) g/dL Hct (37.2-46.3) % MCV (80.0-97.0) fL MCH (27.0-32.0) pg MCHC (32.0-37.0) g/dL Absolute Nucleated RBC (0.00-0.00) X 10*3/uL Lymphocytes # (1.0-4.8) k/uL NRBC/100 WBC Diff (0.0-0.0) /100 WBCS D-Dimer (<0.60) mg/L FEU Sodium (135-145) mmol/L Potassium (3.5-5.1) mmol/L Chloride (96-109) mmol/L Carbon Dioxide (22-30) mmol/L Anion Gap (4.00-12.00) mmol/L BUN (7-17) mg/dL Creatinine (0.6-1.5) mg/dL BUN/Creatinine Ratio (12.00-20.00) Ratio Glucose (70-110) mg/dL POC Glucose (mg/dL) 133 H 121 H (75-99) mg/dL Calcium (8.7-10.3) mg/dL Iron (50-170) ug/dL TIBC (228-460) ug/dL C-Reactive Protein (<10.0) mg/L Total Protein (6.3-8.2) g/dL Albumin (3.5-5.0) g/dL Urine Protein (Negative) Microbiology - Last 24 Hours (Table) 12/14/20 21:48 Blood Culture - Preliminary Blood No Growth after 120 hours 12/14/20 21:30 Blood Culture - Preliminary Blood No Growth after 120 hours 12/17/20 14:35 Blood Culture - Preliminary Blood No Growth after 48 hours 12/17/20 14:55 Blood Culture - Preliminary Blood No Growth after 48 hours
[2020-12-20] MEDS: LORazepam 0.5 MG TAB PEG/G-TUBE SCH ×2 (12:22→16:36)
--- NOTE | 2020-12-20 13:13 | P.PN ---
Subjective Progress Note Date: 12/20/20 (delayed charting seen at 0930) Principal diagnosis: fevers Patient is a 60-year-old female with past medical history of developmental delay, bowel obstruction with colostomy and reversal, dysphagia status post PEG tube placement with history of aspiration pneumonia, dyslipidemia who presented from her adult foster care secondary to fevers. Apparently she had been to [facility] multiple times over the last few days for PEG tube placement. She was noted to have significant right arm bruising on admission and she had fallen 4 days before admission and her buttocks. She was diagnosed with sepsis felt to be secondary to urinary tract infection was started on ceftriaxone 1 g daily. She was also noted to have bilateral soles or dislocations. Initial chest x-ray showed chronic widening of mediastinum, torturous aorta, and bilateral humeral dislocations. Bilateral shoulder x-rays showed anterior dislocation of humeral heads with possible chip fracture. Orthopedic surgery was consulted. They attempted intraoperative reduction which was unsuccessful and these were felt to be chronic dislocations. Her white count improved with initiation of the Rocephin however she continued to spike fevers. Her antibiotics were broadened to Zosyn, she continued to spike fevers on 12/17. Chest x-ray was obtained which showed central atelectasis bilaterally difficult to exclude pneumonia. CT abdomen and pelvis showed diffuse anasarca, trace effusion, dependent atelectasis, hepatomegaly, PEG tube into the duodenum, circumferential colon thickening, circumferential bladder wall thickening, and mild superior endplate deformity of L5. Repeat Covid was sent. Antibiotics were broadened to include vancomycin and Zithromax. Infectious disease was consulted. They discontinued vanco and zithromax. Infectious disease change antibiotics to Invanz on 12/19. Peg tubed changed at bedside on 12/19. US upper extremity showed hematoma. Patient seen and examined at bedside. She is saying no and moaning today. She continued to spike fevers overnight. General: non toxic, no distress, appears at stated age Derm: Bruising to right upper arm warm, dry Head: atraumatic, normocephalic, symmetric Eyes: EOMI, no lid lag, anicteric sclera Mouth: no lip lesion, mucus membranes dry, poor dentition Cardiovascular: S1S2 reg, no murmur, positive posterior tibial pulse bilateral, Lungs: Decreased breath sounds bilateral, no rhonchi, no rales , no accessory muscle use Abdominal: soft, nontender to palpation, no guarding, no appreciable organomegaly Ext: + gross muscle atrophy, diffuse anasarca Neuro: Bilateral upper extremity contractures, bilateral lower extremity contractures, resting tremor Psych: Awake Klebsiella and E. coli urinary tract infection, present on admission, sepsis on arrival -Continue with Invanz -Blood cultures negative to date -Infectious disease recommendations appreciated Anemia -Undetermined etiology -HgB stable - iron studies, B12, RBC folate- pending Hypernatremia -free water via peg tube increased from 40 to 45 cc. - await labs. not avialable at 1645, stat repat ordered Pyrexia with normal white count - possibly related to hematoma right arm -Chest x-ray with atelectasis -CT abdomen and pelvis with possible colitis and displacement of the PEG tube. No signs of colitis clinically. -ID continue with Invanz Elevated d-dimer - US b/l LE negative, US R UE negative for DVT Hyperglycemia -Hemoglobin A1c 5.6 Dysphagia -Continue tube feeds -Surgery will replaced PEG 12/21. Cognitive disability -will return to nursing home -Sister is guardian -Supportive care Bladder calculi or mass - outpatient follow-up with urology after treatment of UTI Elevated LFTs, improved Dyslipidemia Seizure disorder MELLY Syncope DVT prophylaxis: heparin Discussed with: patient, nursing Anticipated discharge: 3-[address]: return to [facility] A total of 35 minutes was spent on the care of this complex patient more than 50% of the time was spent in counseling and care coordination. Objective - Vital Signs Vital signs: Vital Signs Temp 102.4 F H 12/20/20 07:41 Pulse 94 12/20/20 08:00 Resp 16 12/20/20 08:00 BP 144/72 12/20/20 07:41 Pulse Ox 98 12/20/20 07:41 Intake & Output 12/19/20 12/20/20 12/20/20 18:59 06:59 18:59 Intake Total 456 114 Output Total 900 Balance -444 114 Weight 49.2 kg 54 kg Intake: Tube Feeding 456 114 Output: Urine 900 Other: Voiding Method External Catheter External Catheter External Catheter - Labs CBC & Chem 7: 12/20/20 05:23 12/20/20 05:23 Labs: Abnormal Lab Results - Last 24 Hours (Table) 12/19/20 12/19/20 12/19/20 Range/Units 06:32 16:47 16:56 RBC (3.80-5.40) m/uL Hgb (11.4-16.0) gm/dL Hct (34.0-46.0) % MCV (80.0-100.0) fL Lymphocytes # (1.0-4.8) k/uL D-Dimer (<0.60) mg/L FEU Sodium 153 H 146 H (135-145) mmol/L Potassium 3.0 L (3.5-5.1) mmol/L Chloride 114 H (96-109) mmol/L Carbon Dioxide 38 H (22-30) mmol/L Anion Gap 14.80 H (4.00-12.00) mmol/L BUN 18 H (7-17) mg/dL Creatinine 0.5 L 0.44 L (0.6-1.5) mg/dL BUN/Creatinine Ratio 44.00 H (12.00-20.00) Ratio Glucose 118 H 119 H (70-110) mg/dL POC Glucose (mg/dL) 119 H (75-99) mg/dL Calcium 7.6 L 7.6 L (8.7-10.3) mg/dL Iron 30 L (50-170) ug/dL TIBC 220 L (228-460) ug/dL C-Reactive Protein (<10.0) mg/L Total Protein (6.3-8.2) g/dL Albumin (3.5-5.0) g/dL Urine Protein (Negative) 12/19/20 12/20/20 12/20/20 Range/Units 23:33 03:50 05:23 RBC 3.26 L (3.80-5.40) m/uL Hgb 10.7 L (11.4-16.0) gm/dL Hct 33.0 L (34.0-46.0) % MCV 101.1 H (80.0-100.0) fL Lymphocytes # 0.7 L (1.0-4.8) k/uL D-Dimer (<0.60) mg/L FEU Sodium (135-145) mmol/L Potassium (3.5-5.1) mmol/L Chloride (96-109) mmol/L Carbon Dioxide (22-30) mmol/L Anion Gap (4.00-12.00) mmol/L BUN (7-17) mg/dL Creatinine (0.6-1.5) mg/dL BUN/Creatinine Ratio (12.00-20.00) Ratio Glucose (70-110) mg/dL POC Glucose (mg/dL) 135 H (75-99) mg/dL Calcium (8.7-10.3) mg/dL Iron (50-170) ug/dL TIBC (228-460) ug/dL C-Reactive Protein (<10.0) mg/L Total Protein (6.3-8.2) g/dL Albumin (3.5-5.0) g/dL Urine Protein 1+ H (Negative) 12/20/20 12/20/20 12/20/20 Range/Units 05:23 05:23 05:44 RBC (3.80-5.40) m/uL Hgb (11.4-16.0) gm/dL Hct (34.0-46.0) % MCV (80.0-100.0) fL Lymphocytes # (1.0-4.8) k/uL D-Dimer 6.96 H (<0.60) mg/L FEU Sodium (135-145) mmol/L Potassium 3.4 L (3.5-5.1) mmol/L Chloride 108 H (96-109) mmol/L Carbon Dioxide 33 H (22-30) mmol/L Anion Gap (4.00-12.00) mmol/L BUN 21 H (7-17) mg/dL Creatinine 0.44 L (0.6-1.5) mg/dL BUN/Creatinine Ratio (12.00-20.00) Ratio Glucose 119 H (70-110) mg/dL POC Glucose (mg/dL) 133 H (75-99) mg/dL Calcium 7.9 L (8.7-10.3) mg/dL Iron (50-170) ug/dL TIBC (228-460) ug/dL C-Reactive Protein 26.8 H (<10.0) mg/L Total Protein 5.4 L (6.3-8.2) g/dL Albumin 2.8 L (3.5-5.0) g/dL Urine Protein (Negative) 12/20/20 Range/Units 11:32 RBC (3.80-5.40) m/uL Hgb (11.4-16.0) gm/dL Hct (34.0-46.0) % MCV (80.0-100.0) fL Lymphocytes # (1.0-4.8) k/uL D-Dimer (<0.60) mg/L FEU Sodium (135-145) mmol/L Potassium (3.5-5.1) mmol/L Chloride (96-109) mmol/L Carbon Dioxide (22-30) mmol/L Anion Gap (4.00-12.00) mmol/L BUN (7-17) mg/dL Creatinine (0.6-1.5) mg/dL BUN/Creatinine Ratio (12.00-20.00) Ratio Glucose (70-110) mg/dL POC Glucose (mg/dL) 121 H (75-99) mg/dL Calcium (8.7-10.3) mg/dL Iron (50-170) ug/dL TIBC (228-460) ug/dL C-Reactive Protein (<10.0) mg/L Total Protein (6.3-8.2) g/dL Albumin (3.5-5.0) g/dL Urine Protein (Negative) Microbiology - Last 24 Hours (Table) 12/14/20 21:48 Blood Culture - Preliminary Blood No Growth after 120 hours 12/14/20 21:30 Blood Culture - Preliminary Blood No Growth after 120 hours 12/17/20 14:35 Blood Culture - Preliminary Blood No Growth after 48 hours 12/17/20 14:55 Blood Culture - Preliminary Blood No Growth after 48 hours
[2020-12-20] MEDS: FLUCONAZOLE ORAL SUSP 1,400 MG/35 ML BOTTLE PEJ/J-Tube SCH (16:42)
[2020-12-20 16:46] LABS: Glucose,Whole Blood 122 mg/dL (75-99)
--- NOTE | 2020-12-20 17:24 | PN ---
PROGRESS NOTE DATE OF SERVICE: 12/20/2020 REASON FOR FOLLOWUP: 1. Fever. 2. UTI. INTERVAL HISTORY: The patient has been running a fever of 102 degrees Fahrenheit. The patient did not have any hemodynamic instability with fever. No tachycardia. The patient is breathing comfortably. No respiratory distress. No vomiting or diarrhea reported by the nursing staff. The patient is unable to provide any history. EXAMINATION: Blood pressure 140/61, pulse of 80, temperature 100.2, she is 99% on 3 liters nasal cannula. General description is a middle-aged female lying in bed in no distress. HEENT: Shows pallor. The patient did have a large bruise on the right shoulder with swelling to the left shoulder area. LUNGS: Unlabored breathing. Clear to auscultation anteriorly. HEART: S1, S2. Regular rate and rhythm. ABDOMEN: Soft, no tenderness. LABORATORY DATA: White count 10.7, white count 8.3, BUN of 21, creatinine 0.44. Repeat urine is negative. DIAGNOSTIC IMPRESSION AND PLAN: Patient with fever could be related to the right upper shoulder hematoma as seen on the ultrasound as the patient does not have any hemodynamic changes and except for these episodes of fever. Culture has been negative. She did have a UTI on admission. Currently covered with Invanz which may be discontinued on discharge. Continue supportive care. MMODL / IJN: [id number] /
[2020-12-20 17:37] LABS: Basophils % (A) 0 %; Eosinophils % (A) 0 %; HCT 33.7 % (34.0-46.0); HGB 10.5 gm/dL (11.4-16.0); Lymphocytes # (A) 1.3 k/uL (1.0-4.8); Lymphocytes % (A) 16 %; MCH 31.6 pg (25.0-35.0); MCHC 31.3 g/dL (31.0-37.0); MCV 100.8 fL (80.0-100.0); Macrocytosis Slight; Monocytes # (A) 0.4 k/uL (0-1.0); Monocytes % (A) 5 %; Neutrophils # (A) 6.4 k/uL (1.3-7.7); Neutrophils % (A) 77 %; Platelet Count 268 k/uL (150-450); RBC 3.34 m/uL (3.80-5.40); RDW 14.2 % (11.5-15.5); WBC 8.3 k/uL (3.8-10.6)
[2020-12-20 17:47] LABS: ALT 35 U/L (4-34); AST 38 U/L (14-36); African American GFR (CKD) >90 (>60 ml/min/1.73 sqM); Albumin/Globulin Ratio 1.1; Alkaline Phosphatase 72 U/L (38-126); Anion Gap 3 mmol/L; Blood Urea Nitrogen 20 mg/dL (7-17); Calcium 7.9 mg/dL (8.4-10.2); Carbon Dioxide 31 mmol/L (22-30); Chloride 110 mmol/L (98-107); Creatine Kinase 161 U/L (30-135); Globulin 2.7 g/dL; Glucose 112 mg/dL (74-99); Magnesium 2.4 mg/dL (1.6-2.3); Non-African American GFR(CKD) >90 (>60 ml/min/1.73 sqM); Sodium 144 mmol/L (137-145); Total Bilirubin 0.6 mg/dL (0.2-1.3); Total Protein 5.7 g/dL (6.3-8.2)
[2020-12-20] MEDS: HYDROmorphone 0.5 MG/0.5 ML SYRINGE IVP PRN (17:50)
[2020-12-20] MEDS: LORazepam 1 MG TAB PEG/G-TUBE SCH (23:03)
[2020-12-20] MEDS: ERTAPENEM 1 GM in SODIUM CHLORIDE 0.9% 50 ML IVPB SCH (23:04)
[2020-12-20 23:10] LABS: Glucose,Whole Blood 110 mg/dL (75-99)
[2020-12-21] MEDS: ACETAMINOPHEN ORAL SUSP (PEDS) 3,840 MG/120 ML BOTTLE PO PRN ×3 (05:09→22:55)
[2020-12-21 05:41] LABS: Glucose,Whole Blood 112 mg/dL (75-99)
[2020-12-21] MEDS: VALPROIC ACID ORAL SOLN 250 MG/5 ML CUP PEG/G-TUBE SCH ×2 (08:15→22:52)
[2020-12-21] MEDS: risperiDONE 2 MG TAB PEG/G-TUBE SCH (08:15)
[2020-12-21] MEDS: levETIRAcetam ORAL SOLN 500 MG/5 ML CUP PEG/G-TUBE SCH ×2 (08:15→22:52)
[2020-12-21] MEDS: FLUCONAZOLE ORAL SUSP 1,400 MG/35 ML BOTTLE PEJ/J-Tube SCH (08:16)
[2020-12-21] MEDS: AMIODARONE 200 MG TAB PEG/G-TUBE SCH (08:16)
[2020-12-21] MEDS: HEPARIN SODIUM,PORCINE 5,000 UNIT/ML 1 ML VIAL SQ SCH ×3 (08:16→22:52)
[2020-12-21] MEDS: HYDROmorphone 0.5 MG/0.5 ML SYRINGE IVP PRN (08:35)
--- NOTE | 2020-12-21 11:23 | P.PN ---
Progress Note - Text Progress Note Date: 12/21/20 Patient is tolerating tube feeds. Her feeding tube site is clean. Abdomen soft.
[2020-12-21 11:24] LABS: Glucose,Whole Blood 131 mg/dL (75-99)
[2020-12-21] MEDS: LORazepam 0.5 MG TAB PEG/G-TUBE SCH ×2 (12:38→16:36)
[2020-12-21] MEDS: HYDROcodone/APAP 15 ML SOLUTION PO PRN ×3 (12:38→22:53)
[2020-12-21] MEDS ORDERED: IOPAMIDOL CONTRAST (ORAL USE) VIAL PO PRN (15:26)
--- NOTE | 2020-12-21 16:15 | P.PN ---
<Bobo Cadet - Last Filed: 12/21/20 15:30> Subjective Progress Note Date: 12/21/20 Hospital course: Patient is a 60-year-old female whom resides in an [facility] home due to significant developmental delays and is bedbound with upper extremity contractures, lower extremity contractures, and a Peg tube. She has a past medical history of seizure disorders on Keppra and Depakote, tremors on risperidone, a cardiac arrhythmia on amiodarone, hyperlipidemia, a bowel obstruction resulting in colostomy followed by reversal, and history of dysphagia with aspiration pneumonia and is peg tube dependent for meals and medications. She presented to the hospital with reports of fevers status post recent PEG tube replacement at [facility]. Upon arrival to facility, patient was found to be febrile at 101.7F and noted to have significant bruising to her RUE and when the [facility] home was contacted, it was reported that pt had fallen 4 days prior. Patient had full workup in the emergency department and was found to have leukocytosis with WBC count of 16.4, urinalysis was positive for infection, BMP showing mild renal azotemia with BUN of 27, and liver profile revealing an elevated AST of 94 and ALT of 40. An EKG was completed showing sinus tachycardia at 105 bpm with no noted signs of ischemia. Chest x-ray revealed new bilateral anterior dislocation of the shoulder joints and was negative for acute cardiopulmonary process revealing widening of the mediastinum and a tortuous aortic arch which was previously noted on CT 10/31/20. X-ray bilateral shoulders demonstrating a bilateral anterior dislocation of the humeral heads with a possible chip fracture of the right humerus. Patient was initially admitted under general surgery team and is now admitted under our team for UTI with sepsis receiving IV antibiotics. Urine cultures positive for Klebsiella and E. coli. Infectious disease was consulted and changed patient's antibiotics to Invanz. Patient has continued to be febrile throughout hospitalization with temp elevated as high as 103.0F and is currently 102.3F. Additional tests were completed including Doppler bilateral lower extremities which was negative for DVT. Doppler right upper extremity which was also negative for DVT showing small hypo-week weight collection measuring 4.2 x 2.2 x 1.3 cm likely to be a small hematoma. CT abdomen and pelvis revealing diffuse anasarca with trace upper abdominal ascites, prominent dependent opacities in the visualized lung bases likely atelectasis vs pneumonia or aspiration, enlargement of liver, a 7 cm long se gment of narrowed and circumferentially thickened colon at the hepatic flexure, moderate circumferential bladder wall thickening with a noted 8 mm nodularity along the posterior bladder wall, and a mild superior endplate deformity of L5. Physical exam: Patient was seen and evaluated at bedside. She appeared to be uncomfortable with noted tremors and repeatedly moaning out, "No, no, no" and would elevate sound of her voice when she was touched or moved. RN medicated patient for pain/comfort at this time. A full evaluation was completed. Other than pt repeatedly stating, "No", she is completely nonverbal and unable to follow any commands. Pt remains febrile this morning with elevated temp of 102.3F. Today is day 3 of Invanz and day 7 of antibiotics. Fever possibly secondary to hematoma, but secondary to elevated d-dimer and increased size in her liver along with concerns of bladder mass. A CT PE and CT Abd and Pelvis with contrast ordered at this time. General: non toxic, appeared uncomfortable Derm: Bruising and swelling to RUE near axillary region extending into shoulder and Bruising and swelling to LUE near axillary region. Skin otherwise warm and dry with blanchable erythema to coccyx and no breakdown noted. Head: atraumatic, normocephalic, symmetric Eyes: no lid lag, anicteric sclera Mouth: mucus membranes dry and pasty, poor dentition Cardiovascular: S1S2 reg, no murmur, positive posterior tibial pulses bilaterally. Lungs: Respirations even, regular, and unlabored on 3 L O2 via nasal cannula. Decreased breath sounds bilaterally throughout. No wheezes, rhonchi, or rales noted. No accessory muscle usage. Abdominal: soft, no noted tenderness upon palpation, no guarding, no appreciable organomegaly. Peg tube in place LUQ, no signs of erythema or drainage surrounding. Ext: Gross muscle atrophy with bilateral upper and lower extremity contractures and diffuse anasarca. Neuro: Bilateral upper extremity contractures, bilateral lower extremity contractures, resting tremor present. Psych: Awake Assessment and Plan of Care: Klebsiella and E. coli urinary tract infection, present on admission, sepsis on arrival -Continue with Invanz -Blood cultures negative to date -Infectious disease following, further recommendations appreciated. Anemia -Undetermined etiology -HgB stable -Iron 30 with TIBC of 220. -B12 685 -RBC folate 1,144 Hypernatremia, resolved. -Continue free water via peg tube 45 cc. Pyrexia with normal white count -Possibly related to hematoma right arm. -Chest x-ray with atelectasis -CT abdomen and pelvis without contrast revealed diffuse anasarca with trace upper abdominal ascites, prominent dependent opacities in the visualized lung bases likely atelectasis vs pneumonia or aspiration, enlargement of liver, a 7 cm long segment of narrowed and circumferentially thickened colon at the hepatic flexure, moderate circumferential bladder wall thickening with a noted 8 mm nodularity along the posterior bladder wall, and a mild superior endplate d eformity of L5. -Pt remains febrile this morning with elevated temp of 102.3F. Today is day 3 of Invanz and day 7 of antibiotics. -Fever possibly secondary to hematoma, but secondary to elevated d-dimer and increased size in her liver along with concerns of bladder mass. A CT PE and CT Abd and Pelvis with contrast ordered at this time. -Continue with IV antibiotic: Invanz Elevated d-dimer - US BLE negative, US RUE negative for DVT -CT PE ordered at this time. Hyperglycemia, stable -Hemoglobin A1c 5.6 Dysphagia -Continue tube feeds -Surgery replaced Peg tube 12/21/20. Cognitive disability -Will return to [facility]dc upon discharge. -Sister is guardian -Supportive care. -Turn every 2 hours Bladder calculi or mass -Outpatient follow-up with urology after treatment of UTI Elevated LFTs, improved Dyslipidemia Seizure disorder MELLY Syncope Code Status: Full code with instructions: No mechanical ventilation DVT prophylaxis: Heparin Discussed with: Patient, RN Anticipated discharge: Clinical course to determine Anticipated discharge place: return to [facility] A total of 45 minutes was spent on the care of this complex patient more than 50% of the time was spent in counseling and care coordination. Objective - Vital Signs Vital signs: Vital Signs Temp 102.3 F H 12/21/20 08:00 Pulse 91 12/21/20 08:00 Resp 18 12/21/20 08:00 BP 173/79 12/21/20 08:00 Pulse Ox 98 12/21/20 08:00 Intake & Output 12/20/20 12/21/20 12/21/20 18:59 06:59 18:59 Intake Total 991 Output Total 550 Balance 441 Weight 57 kg Intake: Tube Feeding 856 Other 135 Output: Urine 550 Other: Voiding Method External Catheter External Catheter - Labs CBC & Chem 7: 12/20/20 17:20 12/20/20 17:20 Labs: Abnormal Lab Results - Last 24 Hours (Table) 12/19/20 12/20/20 12/20/20 Range/Units 06:32 11:32 16:45 RBC (3.80-5.40) m/uL Hgb (11.4-16.0) gm/dL Hct (34.0-46.0) % MCV (80.0-100.0) fL Chloride (98-107) mmol/L Carbon Dioxide (22-30) mmol/L BUN (7-17) mg/dL Creatinine (0.52-1.04) mg/dL Glucose (74-99) mg/dL POC Glucose (mg/dL) 121 H 122 H (75-99) mg/dL Calcium (8.4-10.2) mg/dL Magnesium (1.6-2.3) mg/dL AST (14-36) U/L ALT (4-34) U/L Creatine Kinase (30-135) U/L Total Protein (6.3-8.2) g/dL Albumin (3.5-5.0) g/dL RBC Folate 1,144 H (280 - 791) ng/mL 12/20/20 12/20/20 12/20/20 Range/Units 17:20 17:20 23:08 RBC 3.34 L (3.80-5.40) m/uL Hgb 10.5 L (11.4-16.0) gm/dL Hct 33.7 L (34.0-46.0) % MCV 100.8 H (80.0-100.0) fL Chloride 110 H (98-107) mmol/L Carbon Dioxide 31 H (22-30) mmol/L BUN 20 H (7-17) mg/dL Creatinine 0.43 L (0.52-1.04) mg/dL Glucose 112 H (74-99) mg/dL POC Glucose (mg/dL) 110 H (75-99) mg/dL Calcium 7.9 L (8.4-10.2) mg/dL Magnesium 2.4 H (1.6-2.3) mg/dL AST 38 H (14-36) U/L ALT 35 H (4-34) U/L Creatine Kinase 161 H (30-135) U/L Total Protein 5.7 L (6.3-8.2) g/dL Albumin 3.0 L (3.5-5.0) g/dL RBC Folate (280 - 791) ng/mL 12/21/20 Range/Units 05:40 RBC (3.80-5.40) m/uL Hgb (11.4-16.0) gm/dL Hct (34.0-46.0) % MCV (80.0-100.0) fL Chloride (98-107) mmol/L Carbon Dioxide (22-30) mmol/L BUN (7-17) mg/dL Creatinine (0.52-1.04) mg/dL Glucose (74-99) mg/dL POC Glucose (mg/dL) 112 H (75-99) mg/dL Calcium (8.4-10.2) mg/dL Magnesium (1.6-2.3) mg/dL AST (14-36) U/L ALT (4-34) U/L Creatine Kinase (30-135) U/L Total Protein (6.3-8.2) g/dL Albumin (3.5-5.0) g/dL RBC Folate (280 - 791) ng/mL Microbiology - Last 24 Hours (Table) 12/14/20 21:48 Blood Culture - Final Blood No Growth after 144 hours 12/14/20 21:30 Blood Culture - Final Blood No Growth after 144 hours 12/17/20 14:35 Blood Culture - Preliminary Blood No Growth after 72 hours 12/17/20 14:55 Blood Culture - Preliminary Blood No Growth after 72 hours <Anne-Marie Pham - Last Filed: 12/21/20 16:32> Objective - Vital Signs Vital signs: Vital Signs Temp 100.1 F H 12/21/20 14:00 Pulse 90 12/21/20 14:00 Resp 18 12/21/20 14:00 BP 109/72 12/21/20 14:00 Pulse Ox 98 12/21/20 14:00 Intake & Output 12/20/20 12/21/20 12/21/20 18:59 06:59 18:59 Intake Total 991 Output Total 550 Balance 441 Weight 57 kg Intake: Tube Feeding 856 Other 135 Output: Urine 550 Other: Voiding Method External Catheter External Catheter External Catheter - Labs CBC & Chem 7: 12/20/20 17:20 12/20/20 17:20 Labs: Abnormal Lab Results - Last 24 Hours (Table) 12/20/20 12/20/20 12/20/20 Range/Units 16:45 17:20 17:20 RBC 3.34 L (3.80-5.40) m/uL Hgb 10.5 L (11.4-16.0) gm/dL Hct 33.7 L (34.0-46.0) % MCV 100.8 H (80.0-100.0) fL Chloride 110 H (98-107) mmol/L Carbon Dioxide 31 H (22-30) mmol/L BUN 20 H (7-17) mg/dL Creatinine 0.43 L (0.52-1.04) mg/dL Glucose 112 H (74-99) mg/dL POC Glucose (mg/dL) 122 H (75-99) mg/dL Calcium 7.9 L (8.4-10.2) mg/dL Magnesium 2.4 H (1.6-2.3) mg/dL AST 38 H (14-36) U/L ALT 35 H (4-34) U/L Creatine Kinase 161 H (30-135) U/L Total Protein 5.7 L (6.3-8.2) g/dL Albumin 3.0 L (3.5-5.0) g/dL 12/20/20 12/21/20 12/21/20 Range/Units 23:08 05:40 11:17 RBC (3.80-5.40) m/uL Hgb (11.4-16.0) gm/dL Hct (34.0-46.0) % MCV (80.0-100.0) fL Chloride (98-107) mmol/L Carbon Dioxide (22-30) mmol/L BUN (7-17) mg/dL Creatinine (0.52-1.04) mg/dL Glucose (74-99) mg/dL POC Glucose (mg/dL) 110 H 112 H 131 H (75-99) mg/dL Calcium (8.4-10.2) mg/dL Magnesium (1.6-2.3) mg/dL AST (14-36) U/L ALT (4-34) U/L Creatine Kinase (30-135) U/L Total Protein (6.3-8.2) g/dL Albumin (3.5-5.0) g/dL Microbiology - Last 24 Hours (Table) 12/14/20 21:48 Blood Culture - Final Blood No Growth after 144 hours 12/14/20 21:30 Blood Culture - Final Blood No Growth after 144 hours 12/17/20 14:35 Blood Culture - Preliminary Blood No Growth after 72 hours 12/17/20 14:55 Blood Culture - Preliminary Blood No Growth after 72 hours Assessment and Plan Assessment: Patient seen and examined independently. Patient was also seen by Bobo Cadet NP and case was discussed. I am in agreement with subjective, physical exam, assessment and plan as written above and amended below. Patient is nonverbal at baseline. She is moaning and tremulous. General: Ill appearing, mild distress, appears at stated age Derm: bruising and swelling in her bilateral upper extrmities Head: atraumatic, normocephalic, symmetric Eyes: EOMI, no lid lag, anicteric sclera Mouth: + lip fissures, poor dentition, mucous membranes dry Cardiovascular: S1S2 reg, no murmur, positive posterior tibial pulse bilateral, Lungs: Decreased breath sounds bilateral, no rhonchi, no rales , no accessory muscle use Abdominal: soft, nontender to palpation, no guarding, no appreciable organomegaly\\ Psych: Awake, repeatedly says "no".
[2020-12-21 16:47] LABS: Glucose,Whole Blood 125 mg/dL (75-99)
--- NOTE | 2020-12-21 20:21 | CT ---
EXAMINATION TYPE: CT chest angio for PE DATE OF EXAM: 12/21/2020 COMPARISON: none HISTORY: elevated d-dimer CT DLP: 417.5 mGycm Automated exposure control for dose reduction was used. CONTRAST: CT Chest for pulmonary embolism performed with with IV Contrast, patient injected with 100 mL of Isov ue 370. FINDINGS: LUNGSThere is bilateral lower lobe atelectasis, left greater than right. There is a small left pleura l effusion MEDIASTINUM: There is satisfactory enhancement of the pulmonary artery and its branches, there is no CT evidence for pulmonary embolism. There are no greater than 1 cm hilar or mediastinal lymph nodes. No pericardial effusion is seen. There is elevation of the left hemidiaphragm IMPRESSION: bibasilar atelectasis and small left plueral effusion. No pulmonary embolism
--- NOTE | 2020-12-21 20:33 | CT ---
EXAMINATION TYPE: CT abdomen pelvis w con DATE OF EXAM: 12/21/2020 COMPARISON: 12/17/20 HISTORY: abdominal pain CT DLP: 1068.2 mGycm Automated exposure control for dose reduction was used. TECHNIQUE: Helical acquisition of images was performed from the lung bases through the pelvis. CONTRAST: Performed with Oral Contrast and with IV Contrast, patient injected with 100 mL of Isovue 370. FINDINGS: LUNG BASES:Mild Bibasilar atelectasis and pleural effusion LIVER/GB: No significant abnormality is appreciated. PANCREAS: No significant abnormality is seen. SPLEEN: No significant abnormality is seen. ADRENALS: No significant abnormality is seen. KIDNEYS: No significant abnormality is seen. FREE AIR: No free air is visualized. RETROPERITONEAL ADENOPATHY: None visualized REPRODUCTIVE ORGANS: No significant abnormality is seen URINARY BLADDER: No significant abnormality is seen. PELVIC ADENOPATHY: None visualized. OSSEOUS STRUCTURES: No significant abnormality is seen. BOWEL: Diffusely dialated large bowel c/w ileus PEG tube unchanged in position. Bladder evaluation limited by lack of contrast IMPRESSION: large bowel ileus. bilateral pleural effusions and atelectasis
[2020-12-21] MEDS: LORazepam 1 MG TAB PEG/G-TUBE SCH (22:52)
[2020-12-21] MEDS: ERTAPENEM 1 GM in SODIUM CHLORIDE 0.9% 50 ML IVPB SCH (22:53)
[2020-12-22 01:40] LABS: Glucose,Whole Blood 108 mg/dL (75-99)
[2020-12-22] MEDS: ACETAMINOPHEN ORAL SUSP (PEDS) 3,840 MG/120 ML BOTTLE PO PRN ×4 (06:04→23:49)
[2020-12-22] MEDS: HYDROcodone/APAP 15 ML SOLUTION PO PRN ×4 (06:04→23:47)
[2020-12-22] MEDS: levETIRAcetam ORAL SOLN 500 MG/5 ML CUP PEG/G-TUBE SCH ×2 (09:43→23:47)
[2020-12-22] MEDS: AMIODARONE 200 MG TAB PEG/G-TUBE SCH (09:43)
[2020-12-22] MEDS: HEPARIN SODIUM,PORCINE 5,000 UNIT/ML 1 ML VIAL SQ SCH ×3 (09:43→23:48)
[2020-12-22] MEDS: VALPROIC ACID ORAL SOLN 250 MG/5 ML CUP PEG/G-TUBE SCH ×2 (09:44→23:47)
[2020-12-22] MEDS: FLUCONAZOLE ORAL SUSP 1,400 MG/35 ML BOTTLE PEJ/J-Tube SCH (09:44)
[2020-12-22 11:38] LABS: Glucose,Whole Blood 120 mg/dL (75-99)
[2020-12-22 11:50] LABS: MCH 32.3 pg (27.0-32.0); MCV 107.5 fL (80.0-97.0); Mean Platelet Volume 11.5 fL (9.5-12.2); Platelet Count 223 X 10*3/uL (140-440); RBC 2.79 X 10*6/uL (4.10-5.20); RDW 15.4 % (11.5-14.5); WBC 5.87 X 10*3/uL (4.50-10.00)
[2020-12-22] MEDS: LORazepam 0.5 MG TAB PEG/G-TUBE SCH ×2 (12:00→16:42)
[2020-12-22 12:40] LABS: African American GFR (CKD) 121.1 (60.0-200.0); Albumin 3.1 g/dL (3.80-4.90); Albumin/Globulin Ratio 1.72 (1.60-3.17); Anion Gap 3.1 mmol/L (4.00-12.00); Calcium 7.7 mg/dL (8.7-10.3); Carbon Dioxide 33.9 mmol/L (21.6-31.8); Globulin 1.8 g/dL (1.6-3.3); Non-African American GFR(CKD) 104.5 (60.0-200.0); Potassium 3.9 mmol/L (3.5-5.5); Total Bilirubin 0.3 mg/dL (0.3-1.2); Total Protein 4.9 g/dL (6.2-8.2)
--- NOTE | 2020-12-22 12:51 | P.PN ---
<Bobo Cadet - Last Filed: 12/22/20 12:25> Subjective Progress Note Date: 12/22/20 Hospital course: Patient is a 60-year-old female whom resides in an [facility] home due to significant developmental delays and is bedbound with upper extremity contractures, lower extremity contractures, and a Peg tube. She has a past medical history of seizure disorders on Keppra and Depakote, tremors on risperidone, a cardiac arrhythmia on amiodarone, hyperlipidemia, a bowel obstruction resulting in colostomy followed by reversal, and history of dysphagia with aspiration pneumonia and is peg tube dependent for meals and medications. She presented to the hospital with reports of fevers status post recent PEG tube replacement at [facility]. Upon arrival to facility, patient was found to be febrile at 101.7F and noted to have significant bruising to her RUE and when the [facility] home was contacted, it was reported that pt had fallen 4 days prior. Patient had full workup in the emergency department and was found to have leukocytosis with WBC count of 16.4, urinalysis was positive for infection, BMP showing mild renal azotemia with BUN of 27, and liver profile revealing an elevated AST of 94 and ALT of 40. An EKG was completed showing sinus tachycardia at 105 bpm with no noted signs of ischemia. Chest x-ray revealed new bilateral anterior dislocation of the shoulder joints and was negative for acute cardiopulmonary process revealing widening of the mediastinum and a tortuous aortic arch which was previously noted on CT 10/31/20. X-ray bilateral shoulders demonstrating a b ilateral anterior dislocation of the humeral heads with a possible chip fracture of the right humerus. Patient was initially admitted under general surgery team and is now admitted under our team for UTI with sepsis receiving IV antibiotics. Urine cultures positive for Klebsiella and E. coli. Infectious disease was consulted and changed patient's antibiotics to Invanz. Patient has continued to be febrile throughout hospitalization with temp elevated as high as 103.0F and is currently 102.3F. Additional tests were completed including Doppler bilateral lower extremities which was negative for DVT. Doppler right upper extremity which was also negative for DVT showing small hypo-week weight collection measuring 4.2 x 2.2 x 1.3 cm likely to be a small hematoma. CT abdomen and pelvis revealing diffuse anasarca with trace upper abdominal ascites, prominent dependent opacities in the visualized lung bases likely atelectasis vs pneumonia or aspiration, enlargement of liver, a 7 cm long s egment of narrowed and circumferentially thickened colon at the hepatic flexure, moderate circumferential bladder wall thickening with a noted 8 mm nodularity along the posterior bladder wall, and a mild superior endplate deformity of L5. CT PE completed negative for pulmonary emboli showing by basilar atelectasis and small left effusion. CT abdomen and pelvis with IV contrast revealing a large carly wel ileus. Blood cultures revealing no growth after 96 hours and no growth after 144 hours. Physical exam: Patient was seen and evaluated at bedside this morning. She appeared to be resting more comfortably this morning. She was not moaning and was not exhibiting any active tremors at this time. She has continued to be febrile ove r the past 24 hours however it has improved from previous 24 hours as patient is now experiencing a low-grade temp with current temp of 100.9F. Otherwise patient's vital signs have remained unremarkable. General: non toxic, showing no signs of acute distress Derm: Bruising and swelling to RUE near axillary region extending into shoulder and Bruising and swelling to LUE near axillary region. Skin otherwise warm and dry with blanchable erythema to coccyx and no breakdown noted. Head: atraumatic, normocephalic, symmetric Eyes: no lid lag, anicteric sclera Mouth: mucus membranes dry and pasty, poor dentition Cardiovascular: S1S2 reg, no murmur, positive posterior tibial pulses bilaterally. Lungs: Respirations even, regular, and unlabored on 3 L O2 via nasal cannula. Decreased breath sounds bilaterally throughout. No wheezes, rhonchi, or rales noted. No accessory muscle usage. Abdominal: soft, no noted tenderness upon palpation, no guarding, no appreciable organomegaly. Peg tube in place LUQ, no signs of erythema or drainage surrounding. Ext: Gross muscle atrophy with bilateral upper and lower extremity contractures and diffuse anasarca. Neuro: Bilateral upper extremity contractures, bilateral lower extremity contractures, resting tremor present. Psych: Awake Assessment and Plan of Care: Klebsiella and E. coli urinary tract infection, present on admission, sepsis on arrival -Urine cultures positive for Klebsiella and E. coli -Continue with Invanz -Continue close monitoring of I's and O's -Infectious disease following, further recommendations appreciated. Anemia -Undetermined etiology -HgB stable 9.0 -Iron 30 with TIBC of 220. -B12 685 -RBC folate 1,144 Hypernatremia, resolved. -Continue free water via peg tube 45 cc. Pyrexia with normal white count, improving but patient continues to have low grade temp of 100.9F this morning -Possibly related to hematoma right arm. -Chest x-ray with atelectasis -CT abdomen and pelvis without contrast revealed diffuse anasarca with trace upper abdominal ascites, prominent dependent opacities in the visualized lung bases likely atelectasis vs pneumonia or aspiration, enlargement of liver, a 7 cm long segment of narrowed and circumferentially thickened colon at the hepatic flexure, moderate circumferential bladder wall thickening with a noted 8 mm nodularity along the posterior bladder wall, and a mild superior endplate deformity of L5. -Pt remains febrile this morning with elevated temp of 102.3F. Today is day 3 of Invanz and day 7 of antibiotics. -Fever possibly secondary to hematoma, but secondary to elevated d-dimer and increased size in her liver along with concerns of bladder mass. A CT PE and CT Abd and Pelvis with contrast ordered at this time. -Continue with IV antibiotic: Invanz -CT PE completed negative for pulmonary emboli showing by basilar atelectasis and small left effusion. -CT abdomen and pelvis with IV contrast revealing a large bowel ileus. -Blood cultures revealing no growth after 96 hours and no growth after 144 hours. Large bowel ileus -CT abdomen and pelvis with IV contrast revealing a large bowel ileus. -Gen. surgery notified and following, appreciate recommendations. Elevated d-dimer - US BLE negative, US RUE negative for DVT -CT PE completed negative for pulmonary emboli showing by basilar atelectasis and small left effusion. Hyperglycemia, stable -Hemoglobin A1c 5.6 Dysphagia -Continue tube feeds -Surgery replaced Peg tube 12/21/20. Cognitive disability -Will return to [facility] snf upon discharge. -Sister is guardian -Supportive care. -Turn every 2 hours Bladder calculi or mass -Outpatient follow-up with urology after treatment of UTI Elevated LFTs, improved Dyslipidemia Seizure disorder MELLY Syncope Code Status: Full code with instructions: No mechanical ventilation DVT prophylaxis: Heparin Discussed with: Patient, RN Anticipated discharge: Clinical course to determine Anticipated discharge place: return to [facility] A total of 45 minutes was spent on the care of this complex patient more than 50% of the time was spent in counseling and care coordination. Objective - Vital Signs Vital signs: Vital Signs Temp 100.9 F H 12/22/20 08:00 Pulse 90 12/22/20 08:00 Resp 20 12/22/20 08:00 BP 118/60 12/22/20 08:00 Pulse Ox 97 12/22/20 08:00 Intake & Output 12/21/20 12/22/20 12/22/20 18:59 06:59 18:59 Output Total 400 Balance -400 Weight 58 kg Output: Urine 400 Other: Voiding Method External Catheter External Catheter External Catheter - Labs CBC & Chem 7: 12/22/20 07:06 12/20/20 17:20 Labs: Abnormal Lab Results - Last 24 Hours (Table) 12/21/20 12/21/20 12/22/20 Range/Units 11:17 16:46 01:38 POC Glucose (mg/dL) 131 H 125 H 108 H (75-99) mg/dL Microbiology - Last 24 Hours (Table) 12/17/20 14:35 Blood Culture - Preliminary Blood No Growth after 96 hours 12/17/20 14:55 Blood Culture - Preliminary Blood No Growth after 96 hours <Anne-Marie Pham A - Last Filed: 12/22/20 15:13> Objective - Vital Signs Vital signs: Vital Signs Temp 99 F 12/22/20 13:19 Pulse 90 12/22/20 08:00 Resp 20 12/22/20 08:00 BP 118/60 12/22/20 08:00 Pulse Ox 97 12/22/20 08:00 Intake & Output 12/21/20 12/22/20 12/22/20 18:59 06:59 18:59 Output Total 400 Balance -400 Weight 58 kg Output: Urine 400 Other: Voiding Method External Catheter External Catheter External Catheter - Labs CBC & Chem 7: 12/22/20 07:06 12/22/20 07:06 Labs: Abnormal Lab Results - Last 24 Hours (Table) 12/21/20 12/22/20 12/22/20 Range/Units 16:46 01:38 07:06 RBC 2.79 L (4.10-5.20) X 10*6/uL Hgb 9.0 L (12.0-15.0) g/dL Hct 30.0 L (37.2-46.3) % MCV 107.5 H (80.0-97.0) fL MCH 32.3 H (27.0-32.0) pg MCHC 30.0 L (32.0-37.0) g/dL RDW 15.4 H (11.5-14.5) % Sodium (135-145) mmol/L Chloride (96-109) mmol/L Carbon Dioxide (21.6-31.8) mmol/L Anion Gap (4.00-12.00) mmol/L Creatinine (0.6-1.5) mg/dL BUN/Creatinine Ratio (12.00-20.00) Ratio Glucose (70-110) mg/dL POC Glucose (mg/dL) 125 H 108 H (75-99) mg/dL Calcium (8.7-10.3) mg/dL Total Protein (6.2-8.2) g/dL Albumin (3.80-4.90) g/dL 12/22/20 12/22/20 Range/Units 07:06 11:37 RBC (4.10-5.20) X 10*6/uL Hgb (12.0-15.0) g/dL Hct (37.2-46.3) % MCV (80.0-97.0) fL MCH (27.0-32.0) pg MCHC (32.0-37.0) g/dL RDW (11.5-14.5) % Sodium 151 H (135-145) mmol/L Chloride 114 H (96-109) mmol/L Carbon Dioxide 33.9 H (21.6-31.8) mmol/L Anion Gap 3.10 L (4.00-12.00) mmol/L Creatinine 0.5 L (0.6-1.5) mg/dL BUN/Creatinine Ratio 50.00 H (12.00-20.00) Ratio Glucose 116 H (70-110) mg/dL POC Glucose (mg/dL) 120 H (75-99) mg/dL Calcium 7.7 L (8.7-10.3) mg/dL Total Protein 4.9 L (6.2-8.2) g/dL Albumin 3.10 L (3.80-4.90) g/dL Microbiology - Last 24 Hours (Table) 12/17/20 14:35 Blood Culture - Preliminary Blood No Growth after 96 hours 12/17/20 14:55 Blood Culture - Preliminary Blood No Growth after 96 hours Assessment and Plan Assessment: Patient seen and examined independently. Patient was also seen by Bobo Cadet NP and case was discussed. I am in agreement with subjective, physical exam, assessment and plan as written above and amended below. Nonverbal. Appears comfortable. No longer moaning. General: non toxic, no distress, appears at stated age Derm: warm, dry Head: atraumatic, normocephalic, symmetric Eyes: EOMI, no lid lag, anicteric sclera Mouth: no lip lesion, mucus membranes dry, poor dentition Cardiovascular: S1S2 reg, no murmur, positive posterior tibial pulse bilateral, Lungs: Decreased breath sounds bilateral bilateral, no rhonchi, no rales , no accessory muscle use Abdominal: soft, nontender to palpation, no guarding, no appreciable organomegaly, PEG tube in place Ext: + gross muscle atrophy, diffuse anasarca, bilateral upper and lower extremity flexion contractures Psych: Awake Additional diagnoses: Chronic bilateral shoulder dislocations -Failed reduction intraoperatively as it was noted that these were chronic dislocations -Pain control Fevers reducing. Continue with antibiotics and antifungal therapy. Case discussed with Dr. Chow regarding large bowel ileus. Plans are for Reglan.
[2020-12-22] MEDS: METOCLOPRAMIDE 5 MG/ML 2 ML VIAL IVP SCH ×3 (13:00→23:48)
[2020-12-22] MEDS: risperiDONE 2 MG TAB PEG/G-TUBE SCH (13:07)
[2020-12-22 15:58] LABS: African American GFR (CKD) >90 (>60 ml/min/1.73 sqM); Anion Gap 3 mmol/L; Blood Urea Nitrogen 23 mg/dL (7-17); Calcium 7.9 mg/dL (8.4-10.2); Carbon Dioxide 31 mmol/L (22-30); Chloride 114 mmol/L (98-107); Glucose 112 mg/dL (74-99); Non-African American GFR(CKD) >90 (>60 ml/min/1.73 sqM); Potassium 3.8 mmol/L (3.5-5.1); Sodium 148 mmol/L (137-145)
[2020-12-22 16:50] LABS: Glucose,Whole Blood 132 mg/dL (75-99)
--- NOTE | 2020-12-22 17:09 | P.PN ---
Progress Note - Text Progress Note Date: 12/22/20 Patient is resting comfortably bed. Patient had a CAT scan performed yesterday for some abdominal discomfort. She is found have colonic ileus. For core measures over 10 cm in diameter in some spots. On exam vitals are stable. Her abdomen soft. There is some distention. Patient most of his colonic ileus. We will place her on Reglan 10 mg IV every 6. She'll be closely followed.
[2020-12-22] MEDS ORDERED: VANCOMYCIN IV PER PHARMACY 1 EACH MISC MISCELLANE PRN (21:17)
--- NOTE | 2020-12-22 22:59 | PN ---
PROGRESS NOTE DATE OF SERVICE: 12/22/2020. REASON FOR FOLLOWUP: Fever, possible hematoma to bilateral shoulder area. INTERVAL HISTORY: Patient has been running a fever of 101 degrees Fahrenheit. Patient hemodynamically stable, not having any tachycardia or hemodynamically instability. The patient is nonverbal and unable to provide any history. No vomiting, diarrhea or any other changes reported by nursing staff. PHYSICAL EXAMINATION: Blood pressure 120/51, pulse 82, temperature 101. She is 99% on 3 L nasal cannula. General description is a middle-aged female lying in bed in no distress. Respiratory system: Unlabored breathing with decreased breath sounds at the base. No wheeze. HEART: S1, S2. Regular rate and rhythm. ABDOMEN: Soft, no tenderness. EXTREMITIES: No edema of the feet. LABS: White count is normal. Cultures have been negative so far. DIAGNOSTIC IMPRESSION AND PLAN: Patient with persistent fever in this patient who did have extensive workup without any obvious focus of infection with concern for possibly related to the bilateral shoulder area hematoma with possible component of urinary tract infection that has been adequately treated with repeat urine has been negative so far. Plan at this time is to discontinue the Invanz. We will repeat cultures and adjust antibiotic to vancomycin and see clinical response to it. Continue supportive care. MMODL / IJN: [id number] / MTDD
[2020-12-22] MEDS: LORazepam 1 MG TAB PEG/G-TUBE SCH (23:47)
[2020-12-22] MEDS: VANCOMYCIN 1,000 MG in SODIUM CHLORIDE 0.9% 250 ML IVPB SCH (23:48)
[2020-12-23 01:01] LABS: Glucose,Whole Blood 123 mg/dL (75-99)
[2020-12-23] MEDS: METOCLOPRAMIDE 5 MG/ML 2 ML VIAL IVP SCH ×2 (06:16→13:10)
[2020-12-23] MEDS: HYDROcodone/APAP 15 ML SOLUTION PO PRN ×3 (06:17→21:50)
[2020-12-23] MEDS: ACETAMINOPHEN ORAL SUSP (PEDS) 3,840 MG/120 ML BOTTLE PO PRN ×2 (06:17→17:15)
[2020-12-23] MEDS: VANCOMYCIN 1,000 MG in SODIUM CHLORIDE 0.9% 250 ML IVPB SCH (08:46)
[2020-12-23] MEDS: AMIODARONE 200 MG TAB PEG/G-TUBE SCH (08:46)
[2020-12-23] MEDS: levETIRAcetam ORAL SOLN 500 MG/5 ML CUP PEG/G-TUBE SCH ×2 (08:46→21:39)
[2020-12-23] MEDS: HEPARIN SODIUM,PORCINE 5,000 UNIT/ML 1 ML VIAL SQ SCH ×3 (08:46→23:28)
[2020-12-23] MEDS: FLUCONAZOLE ORAL SUSP 1,400 MG/35 ML BOTTLE PEJ/J-Tube SCH (08:47)
[2020-12-23] MEDS: VALPROIC ACID ORAL SOLN 250 MG/5 ML CUP PEG/G-TUBE SCH ×2 (08:47→21:38)
[2020-12-23 08:57] LABS: HGB 9.7 g/dL (12.0-15.0); MCH 32.6 pg (27.0-32.0); MCHC 30.3 g/dL (32.0-37.0); MCV 107.4 fL (80.0-97.0); Mean Platelet Volume 12.1 fL (9.5-12.2); Platelet Count 215 X 10*3/uL (140-440); RBC 2.98 X 10*6/uL (4.10-5.20); RDW 15.9 % (11.5-14.5); WBC 8.39 X 10*3/uL (4.50-10.00)
[2020-12-23 09:06] LABS: Basophils % (A) 0 %; Eosinophils # (A) 0.1 k/uL (0-0.7); Eosinophils % (A) 1 %; HCT 29.3 % (34.0-46.0); HGB 9.4 gm/dL (11.4-16.0); Hypochromasia Slight; Lymphocytes # (A) 0.9 k/uL (1.0-4.8); Lymphocytes % (A) 12 %; MCH 33.2 pg (25.0-35.0); MCV 103.7 fL (80.0-100.0); Macrocytosis Moderate; Mean Platelet Volume 8.2; Monocytes # (A) 0.2 k/uL (0-1.0); Monocytes % (A) 3 %; Neutrophils # (A) 6.1 k/uL (1.3-7.7); Neutrophils % (A) 83 %; Platelet Count 209 k/uL (150-450); RBC 2.83 m/uL (3.80-5.40); RDW 15.5 % (11.5-15.5); WBC 7.3 k/uL (3.8-10.6)
[2020-12-23 09:45] LABS: ALT 45 U/L (4-34); AST 46 U/L (14-36); African American GFR (CKD) >90 (>60 ml/min/1.73 sqM); Albumin 2.6 g/dL (3.5-5.0); Albumin/Globulin Ratio 1.1; Alkaline Phosphatase 99 U/L (38-126); Anion Gap 5 mmol/L; Blood Urea Nitrogen 25 mg/dL (7-17); Calcium 7.7 mg/dL (8.4-10.2); Carbon Dioxide 30 mmol/L (22-30); Chloride 114 mmol/L (98-107); Globulin 2.4 g/dL; Glucose 126 mg/dL (74-99); Magnesium 2.4 mg/dL (1.6-2.3); Non-African American GFR(CKD) >90 (>60 ml/min/1.73 sqM); Potassium 3.6 mmol/L (3.5-5.1); Sodium 149 mmol/L (137-145); Total Bilirubin 0.3 mg/dL (0.2-1.3)
[2020-12-23 09:50] LABS: African American GFR (CKD) 121.1 (60.0-200.0); Albumin 3.3 g/dL (3.80-4.90); Albumin/Globulin Ratio 1.74 (1.60-3.17); Anion Gap 6.9 mmol/L (4.00-12.00); Calcium 7.9 mg/dL (8.7-10.3); Carbon Dioxide 30.1 mmol/L (21.6-31.8); Globulin 1.9 g/dL (1.6-3.3); Non-African American GFR(CKD) 104.5 (60.0-200.0); Potassium 3.9 mmol/L (3.5-5.5); Total Bilirubin 0.3 mg/dL (0.3-1.2); Total Protein 5.2 g/dL (6.2-8.2)
[2020-12-23 11:14] LABS: Glucose,Whole Blood 111 mg/dL (75-99)
--- NOTE | 2020-12-23 11:19 | P.PN ---
<Bobo Cadet - Last Filed: 12/23/20 11:06> Subjective Progress Note Date: 12/23/20 Hospital course: Patient is a 60-year-old female whom resides in an [facility] home due to significant developmental delays and is bedbound with upper extremity contractures, lower extremity contractures, and a Peg tube. She has a past medical history of seizure disorders on Keppra and Depakote, tremors on risperidone, a cardiac arrhythmia on amiodarone, hyperlipidemia, a bowel obstruction resulting in colostomy followed by reversal, and history of dysphagia with aspiration pneumonia and is peg tube dependent for meals and medications. She presented to the hospital with reports of fevers status post recent PEG tube replacement at [facility]. Upon arrival to facility, patient was found to be febrile at 101.7F and noted to have significant bruising to her RUE and when the [facility] home was contacted, it was reported that pt had fallen 4 days prior. Patient had full workup in the emergency department and was found to have leukocytosis with WBC count of 16.4, urinalysis was positive for infection, BMP showing mild renal azotemia with BUN of 27, and liver profile revealing an elevated AST of 94 and ALT of 40. An EKG was completed showing sinus tachycardia at 105 bpm with no noted signs of ischemia. Chest x-ray revealed new bilateral anterior dislocation of the shoulder joints and was negative for acute cardiopulmonary process revealing widening of the mediastinum and a tortuous aortic arch which was previously noted on CT 10/31/20. X-ray bilateral shoulders demonstrating a b ilateral anterior dislocation of the humeral heads with a possible chip fracture of the right humerus. Patient was initially admitted under general surgery team and is now admitted under our team for UTI with sepsis receiving IV antibiotics. Urine cultures positive for Klebsiella and E. coli. Infectious disease was consulted and changed patient's antibiotics to Invanz. Patient has continued to be febrile throughout hospitalization with temp elevated as high as 103.0F and is currently 102.3F. Additional tests were completed including Doppler bilateral lower extremities which was negative for DVT. Doppler right upper extremity which was also negative for DVT showing small hypo-week weight collection measuring 4.2 x 2.2 x 1.3 cm likely to be a small hematoma. CT abdomen and pelvis revealing diffuse anasarca with trace upper abdominal ascites, prominent dependent opacities in the visualized lung bases likely atelectasis vs pneumonia or aspiration, enlargement of liver, a 7 cm long s egment of narrowed and circumferentially thickened colon at the hepatic flexure, moderate circumferential bladder wall thickening with a noted 8 mm nodularity along the posterior bladder wall, and a mild superior endplate deformity of L5. CT PE completed negative for pulmonary emboli showing by basilar atelectasis and small left effusion. CT abdomen and pelvis with IV contrast revealing a large carly wel ileus. Blood cultures revealing no growth after 96 hours and no growth after 144 hours. Physical exam: Patient was seen and evaluated at bedside this morning. She was sleeping and appeared comfortable this morning. She was easily awoken via verbal and tactile stimuli She was not moaning and was not exhibiting any active tremors at this time. Currently she is afebrile with current temperature 97.9. Patient has however continued to be febrile over the past 24 hours with high of 101.0F. Otherwise patient's vital signs have remained unremarkable. Pt was found to having increasing hypernatremia yesterday and free water boluses via peg tube were increased to 75 mL. Morning labs show improvement of hypernatremia and sodium is now down to 149 from 152, we will increase free water flushes to 100 mL at this time and continue to monitor closely. General: non toxic, showing no signs of acute distress Derm: Bruising and swelling to RUE near axillary region extending into shoulder and Bruising and swelling to LUE near axillary region. Skin otherwise warm and dry with blanchable erythema to coccyx and no breakdown noted. Head: atraumatic, normocephalic, symmetric Eyes: no lid lag, anicteric sclera Mouth: mucus membranes dry and pasty, poor dentition Cardiovascular: S1S2 reg, no murmur, positive posterior tibial pulses bilaterally. Lungs: Respirations even, regular, and unlabored on 3 L O2 via nasal cannula. Decreased breath sounds bilaterally throughout. No wheezes, rhonchi, or rales noted. No accessory muscle usage. Abdominal: soft, no noted tenderness upon palpation, no guarding, no appreciable organomegaly. Peg tube in place LUQ, no signs of erythema or drainage surrounding. Ext: Gross muscle atrophy with bilateral upper and lower extremity contractures and diffuse anasarca. Neuro: Bilateral upper extremity contractures, bilateral lower extremity contractures, resting tremor present. Psych: Awake Assessment and Plan of Care: Large bowel ileus -CT abdomen and pelvis with IV contrast revealing a large bowel ileus. -Gen. surgery recommended Reglan 5 mg every 6 hours. -Patient has now had 3 bowel movements over the past 24 hours. -We will continue Reglan 5 mg every 6 hours and continue to monitor I's and O's closely. Hypernatremia -Free water flushes via via peg tube increased to 100 cc. Pyrexia with normal white count, improving but patient continues to have low grade temp of 100.9F this morning -Possibly related to hematoma right arm. -Chest x-ray with atelectasis -CT abdomen and pelvis without contrast revealed diffuse anasarca with trace upper abdominal ascites, prominent dependent opacities in the visualized lung bases likely atelectasis vs pneumonia or aspiration, enlargement of liver, a 7 cm long segment of narrowed and circumferentially thickened colon at the hepatic flexure, moderate circumferential bladder wall thickening with a noted 8 mm nodularity along the posterior bladder wall, and a mild superior endplate de formity of L5. -Pt remains febrile this morning with elevated temp of 102.3F. Today is day 3 of Invanz and day 7 of antibiotics. -Fever possibly secondary to hematoma, but secondary to elevated d-dimer and increased size in her liver along with concerns of bladder mass. A CT PE and CT Abd and Pelvis with contrast ordered at this time. -Continue with IV antibiotic: Invanz -CT PE completed negative for pulmonary emboli showing by basilar atelectasis and small left effusion. -CT abdomen and pelvis with IV contrast revealing a large bowel ileus. -Blood cultures revealing no growth after 96 hours and no growth after 144 hours. Klebsiella and E. coli urinary tract infection, present on admission, sepsis on arrival -Urine cultures positive for Klebsiella and E. coli -Continue with Invanz -Continue close monitoring of I's and O's -Infectious disease following, further recommendations appreciated. Anemia -Undetermined etiology -HgB stable 9.0 -Iron 30 with TIBC of 220. -B12 685 -RBC folate 1,144 Chronic bilateral shoulder dislocations -Chest x-ray revealed new bilateral anterior dislocation of the shoulder joints and was negative for acute cardiopulmonary process revealing widening of the mediastinum and a tortuous aortic arch which was previously noted on CT 10/31/20. -X-ray bilateral shoulders demonstrating a bilateral anterior dislocation of the humeral heads with a possible chip fracture of the right humerus. -Failed reduction intraoperatively as it was noted that these were chronic dislocations. -Symptomatic treatment and pain management. Elevated d-dimer - US BLE negative, US RUE negative for DVT -CT PE completed negative for pulmonary emboli showing by basilar atelectasis and small left effusion. Hyperglycemia, stable -Hemoglobin A1c 5.6 Dysphagia -Continue tube feeds -Surgery replaced Peg tube 12/21/20. Cognitive disability -Will return to [facility] [place] [facility] [place]. -Sister is guardian -Supportive care. -Turn every 2 hours Bladder calculi or mass -Outpatient follow-up with urology after treatment of UTI Elevated LFTs, improved Dyslipidemia Seizure disorder MELLY Syncope Code Status: Full code with instructions: No mechanical ventilation DVT prophylaxis: Heparin Discussed with: Patient, RN Anticipated discharge: Clinical course to determine, possibly tomorrow. Anticipated discharge place: return to [facility] A total of 45 minutes was spent on the care of this complex patient more than 50% of the time was spent in counseling and care coordination. Objective - Vital Signs Vital signs: Vital Signs Temp 97.9 F 12/23/20 08:00 Pulse 99 12/23/20 08:00 Resp 22 12/23/20 08:00 BP 183/67 12/23/20 08:00 Pulse Ox 97 12/23/20 08:00 Intake & Output 12/22/20 12/23/20 12/23/20 18:59 06:59 18:59 Intake Total 756 Balance 756 Weight 57 kg Intake: Tube Feeding 456 Other 300 Other: Voiding Method External Catheter External Catheter # Voids 1 # Bowel Movements 3 - Labs CBC & Chem 7: 12/23/20 08:50 12/23/20 08:50 Labs: Abnormal Lab Results - Last 24 Hours (Table) 12/22/20 12/22/20 12/22/20 Range/Units 07:06 07:06 11:37 RBC 2.79 L (4.10-5.20) X 10*6/uL Hgb 9.0 L (12.0-15.0) g/dL Hct 30.0 L (37.2-46.3) % MCV 107.5 H (80.0-97.0) fL MCH 32.3 H (27.0-32.0) pg MCHC 30.0 L (32.0-37.0) g/dL RDW 15.4 H (11.5-14.5) % ESR (0-20) mm/hr Sodium 151 H (135-145) mmol/L Chloride 114 H (96-109) mmol/L Carbon Dioxide 33.9 H (21.6-31.8) mmol/L Anion Gap 3.10 L (4.00-12.00) mmol/L BUN (7-17) mg/dL Creatinine 0.5 L (0.6-1.5) mg/dL BUN/Creatinine Ratio 50.00 H (12.00-20.00) Ratio Glucose 116 H (70-110) mg/dL POC Glucose (mg/dL) 120 H (75-99) mg/dL Calcium 7.7 L (8.7-10.3) mg/dL C-Reactive Protein (<10.0) mg/L Total Protein 4.9 L (6.2-8.2) g/dL Albumin 3.10 L (3.80-4.90) g/dL 12/22/20 12/22/20 12/22/20 Range/Units 15:36 16:49 21:36 RBC (4.10-5.20) X 10*6/uL Hgb (12.0-15.0) g/dL Hct (37.2-46.3) % MCV (80.0-97.0) fL MCH (27.0-32.0) pg MCHC (32.0-37.0) g/dL RDW (11.5-14.5) % ESR 22 H (0-20) mm/hr Sodium 148 H (135-145) mmol/L Chloride 114 H (96-109) mmol/L Carbon Dioxide 31 H (21.6-31.8) mmol/L Anion Gap (4.00-12.00) mmol/L BUN 23 H (7-17) mg/dL Creatinine 0.43 L (0.6-1.5) mg/dL BUN/Creatinine Ratio (12.00-20.00) Ratio Glucose 112 H (70-110) mg/dL POC Glucose (mg/dL) 132 H (75-99) mg/dL Calcium 7.9 L (8.7-10.3) mg/dL C-Reactive Protein (<10.0) mg/L Total Protein (6.2-8.2) g/dL Albumin (3.80-4.90) g/dL 12/22/20 12/23/20 Range/Units 21:36 00:59 RBC (4.10-5.20) X 10*6/uL Hgb (12.0-15.0) g/dL Hct (37.2-46.3) % MCV (80.0-97.0) fL MCH (27.0-32.0) pg MCHC (32.0-37.0) g/dL RDW (11.5-14.5) % ESR (0-20) mm/hr Sodium (135-145) mmol/L Chloride (96-109) mmol/L Carbon Dioxide (21.6-31.8) mmol/L Anion Gap (4.00-12.00) mmol/L BUN (7-17) mg/dL Creatinine (0.6-1.5) mg/dL BUN/Creatinine Ratio (12.00-20.00) Ratio Glucose (70-110) mg/dL POC Glucose (mg/dL) 123 H (75-99) mg/dL Calcium (8.7-10.3) mg/dL C-Reactive Protein 12.3 H (<10.0) mg/L Total Protein (6.2-8.2) g/dL Albumin (3.80-4.90) g/dL Microbiology - Last 24 Hours (Table) 12/17/20 14:35 Blood Culture - Preliminary Blood No Growth after 120 hours 12/17/20 14:55 Blood Culture - Preliminary Blood No Growth after 120 hours <Anne-Marie Pham A - Last Filed: 12/23/20 13:28> Objective - Vital Signs Vital signs: Vital Signs Temp 97.9 F 12/23/20 08:00 Pulse 83 12/23/20 08:00 Resp 22 12/23/20 08:00 BP 183/67 12/23/20 08:00 Pulse Ox 97 12/23/20 08:00 Intake & Output 12/22/20 12/23/20 12/23/20 18:59 06:59 18:59 Intake Total 756 Balance 756 Weight 57 kg Intake: Tube Feeding 456 Other 300 Other: Voiding Method External Catheter External Catheter External Catheter # Voids 1 # Bowel Movements 3 - Labs CBC & Chem 7: 12/23/20 08:50 12/23/20 08:50 Labs: Abnormal Lab Results - Last 24 Hours (Table) 12/22/20 12/22/20 12/22/20 Range/Units 15:36 16:49 21:36 RBC (4.10-5.20) X 10*6/uL Hgb (12.0-15.0) g/dL Hct (37.2-46.3) % MCV (80.0-97.0) fL MCH (27.0-32.0) pg MCHC (32.0-37.0) g/dL RDW (11.5-14.5) % Lymphocytes # (1.0-4.8) k/uL ESR 22 H (0-20) mm/hr Sodium 148 H (137-145) mmol/L Chloride 114 H (98-107) mmol/L Carbon Dioxide 31 H (22-30) mmol/L BUN 23 H (7-17) mg/dL Creatinine 0.43 L (0.52-1.04) mg/dL BUN/Creatinine Ratio (12.00-20.00) Ratio Glucose 112 H (74-99) mg/dL POC Glucose (mg/dL) 132 H (75-99) mg/dL Calcium 7.9 L (8.4-10.2) mg/dL Magnesium (1.6-2.3) mg/dL AST (13-35) U/L ALT (8-44) U/L Alkaline Phosphatase (41-126) U/L C-Reactive Protein (<10.0) mg/L Total Protein (6.2-8.2) g/dL Albumin (3.80-4.90) g/dL 12/22/20 12/23/20 12/23/20 Range/Units 21:36 00:59 05:38 RBC (4.10-5.20) X 10*6/uL Hgb (12.0-15.0) g/dL Hct (37.2-46.3) % MCV (80.0-97.0) fL MCH (27.0-32.0) pg MCHC (32.0-37.0) g/dL RDW (11.5-14.5) % Lymphocytes # (1.0-4.8) k/uL ESR (0-20) mm/hr Sodium 152 H (137-145) mmol/L Chloride 115 H (98-107) mmol/L Carbon Dioxide (22-30) mmol/L BUN (7-17) mg/dL Creatinine 0.5 L (0.52-1.04) mg/dL BUN/Creatinine Ratio 54.00 H (12.00-20.00) Ratio Glucose 117 H (74-99) mg/dL POC Glucose (mg/dL) 123 H (75-99) mg/dL Calcium 7.9 L (8.4-10.2) mg/dL Magnesium (1.6-2.3) mg/dL AST 44 H (13-35) U/L ALT 48 H (8-44) U/L Alkaline Phosphatase 128 H (41-126) U/L C-Reactive Protein 12.3 H (<10.0) mg/L Total Protein 5.2 L (6.2-8.2) g/dL Albumin 3.30 L (3.80-4.90) g/dL 12/23/20 12/23/20 12/23/20 Range/Units 05:38 08:50 08:50 RBC 2.98 L 2.83 L (4.10-5.20) X 10*6/uL Hgb 9.7 L 9.4 L (12.0-15.0) g/dL Hct 32.0 L 29.3 L (37.2-46.3) % MCV 107.4 H 103.7 H (80.0-97.0) fL MCH 32.6 H (27.0-32.0) pg MCHC 30.3 L (32.0-37.0) g/dL RDW 15.9 H (11.5-14.5) % Lymphocytes # 0.9 L (1.0-4.8) k/uL ESR (0-20) mm/hr Sodium 149 H (137-145) mmol/L Chloride 114 H (98-107) mmol/L Carbon Dioxide (22-30) mmol/L BUN 25 H (7-17) mg/dL Creatinine 0.45 L (0.52-1.04) mg/dL BUN/Creatinine Ratio (12.00-20.00) Ratio Glucose 126 H (74-99) mg/dL POC Glucose (mg/dL) (75-99) mg/dL Calcium 7.7 L (8.4-10.2) mg/dL Magnesium 2.4 H (1.6-2.3) mg/dL AST 46 H (13-35) U/L ALT 45 H (8-44) U/L Alkaline Phosphatase (41-126) U/L C-Reactive Protein (<10.0) mg/L Total Protein 5.0 L (6.2-8.2) g/dL Albumin 2.6 L (3.80-4.90) g/dL 12/23/20 Range/Units 11:09 RBC (4.10-5.20) X 10*6/uL Hgb (12.0-15.0) g/dL Hct (37.2-46.3) % MCV (80.0-97.0) fL MCH (27.0-32.0) pg MCHC (32.0-37.0) g/dL RDW (11.5-14.5) % Lymphocytes # (1.0-4.8) k/uL ESR (0-20) mm/hr Sodium (137-145) mmol/L Chloride (98-107) mmol/L Carbon Dioxide (22-30) mmol/L BUN (7-17) mg/dL Creatinine (0.52-1.04) mg/dL BUN/Creatinine Ratio (12.00-20.00) Ratio Glucose (74-99) mg/dL POC Glucose (mg/dL) 111 H (75-99) mg/dL Calcium (8.4-10.2) mg/dL Magnesium (1.6-2.3) mg/dL AST (13-35) U/L ALT (8-44) U/L Alkaline Phosphatase (41-126) U/L C-Reactive Protein (<10.0) mg/L Total Protein (6.2-8.2) g/dL Albumin (3.80-4.90) g/dL Microbiology - Last 24 Hours (Table) 12/17/20 14:35 Blood Culture - Preliminary Blood No Growth after 120 hours 12/17/20 14:55 Blood Culture - Preliminary Blood No Growth after 120 hours Assessment and Plan Assessment: Patient seen and examined independently. Patient was also seen by Bobo Cadet NP and case was discussed. I am in agreement with subjective, physical exam, assessment and plan as written above and amended below. Nonverbal. Moaning less today. General: non toxic, no distress, appears at stated age Derm: Bilateral upper extremity ecchymoses-improving, warm, dry Head: atraumatic, normocephalic, symmetric Eyes: EOMI, no lid lag, anicteric sclera Mouth: no lip lesion, dry, poor dentition Cardiovascular: S1S2 reg, no murmur, positive posterior tibial pulse bilateral, Lungs: CTA bilateral, no rhonchi, no rales , no accessory muscle use Abdominal: soft, nontender to palpation, no guarding, no appreciable organomegaly Ext: + gross muscle atrophy, 2+ edema, Neuro: Tremors bilateral upper extremities, bilateral upper and lower extremity flexion contractures Psych: Alert, oriented, appropriate affect Large Bowel ileus, improved -Decrease Reglan. Start bowel regimen with MiraLAX Bladder calculi or mass -Suspect likely bladder calculi as repeat CTA did not mention calculi or mass but likely had contrast within the urine.
--- NOTE | 2020-12-23 13:00 | P.PN ---
Subjective Progress Note Date: 12/23/20 CHIEF COMPLAINT: Fever HISTORY OF PRESENT ILLNESS: Patient seen and examined with Dr. madden. Surgical services is following regarding displaced peg tube and colonic ileus. Patient started on Reglan and is now having bowel movements. She is still having fevers. T-max 101 last night. WBC 7.3 PHYSICAL EXAM: VITAL SIGNS: Reviewed. GENERAL: Well-developed in no acute distress. HEENT: No sclera icterus. Extraocular movements grossly intact. Moist buccal mucosa. Head is atraumatic, normocephalic. ABDOMEN: Soft. Nondistended. Nontender. PEG tube site clean dry and intact NEUROLOGIC: Nonverbal ASSESSMENT: 1. Displaced PEG tube. Patient is status post peg tube exchange with MELISSA PEG tube by Dr. Madden at the bedside. 2. History of dysphagia status post PEG tube placement with Dr. Madden on 11/04/2020 3. Colonic ileus improving PLAN: -Continue Reglan -Continue tube feedings -Continue supportive care Physician Liquefaction And Regasification Helper note has been reviewed by physician. Signing provider agrees with the documented findings, assessment, and plan of care. Objective - Vital Signs Vital signs: Vital Signs Temp 97.9 F 12/23/20 08:00 Pulse 83 12/23/20 08:00 Resp 22 12/23/20 08:00 BP 183/67 12/23/20 08:00 Pulse Ox 97 12/23/20 08:00 Intake & Output 12/22/20 12/23/20 12/23/20 18:59 06:59 18:59 Intake Total 756 Balance 756 Weight 57 kg Intake: Tube Feeding 456 Other 300 Other: Voiding Method External Catheter External Catheter External Catheter # Voids 1 # Bowel Movements 3 - Labs CBC & Chem 7: 12/23/20 08:50 12/23/20 08:50 Labs: Abnormal Lab Results - Last 24 Hours (Table) 12/22/20 12/22/20 12/22/20 Range/Units 15:36 16:49 21:36 RBC (4.10-5.20) X 10*6/uL Hgb (12.0-15.0) g/dL Hct (37.2-46.3) % MCV (80.0-97.0) fL MCH (27.0-32.0) pg MCHC (32.0-37.0) g/dL RDW (11.5-14.5) % Lymphocytes # (1.0-4.8) k/uL ESR 22 H (0-20) mm/hr Sodium 148 H (137-145) mmol/L Chloride 114 H (98-107) mmol/L Carbon Dioxide 31 H (22-30) mmol/L BUN 23 H (7-17) mg/dL Creatinine 0.43 L (0.52-1.04) mg/dL BUN/Creatinine Ratio (12.00-20.00) Ratio Glucose 112 H (74-99) mg/dL POC Glucose (mg/dL) 132 H (75-99) mg/dL Calcium 7.9 L (8.4-10.2) mg/dL Magnesium (1.6-2.3) mg/dL AST (13-35) U/L ALT (8-44) U/L Alkaline Phosphatase (41-126) U/L C-Reactive Protein (<10.0) mg/L Total Protein (6.2-8.2) g/dL Albumin (3.80-4.90) g/dL 12/22/20 12/23/20 12/23/20 Range/Units 21:36 00:59 05:38 RBC (4.10-5.20) X 10*6/uL Hgb (12.0-15.0) g/dL Hct (37.2-46.3) % MCV (80.0-97.0) fL MCH (27.0-32.0) pg MCHC (32.0-37.0) g/dL RDW (11.5-14.5) % Lymphocytes # (1.0-4.8) k/uL ESR (0-20) mm/hr Sodium 152 H (137-145) mmol/L Chloride 115 H (98-107) mmol/L Carbon Dioxide (22-30) mmol/L BUN (7-17) mg/dL Creatinine 0.5 L (0.52-1.04) mg/dL BUN/Creatinine Ratio 54.00 H (12.00-20.00) Ratio Glucose 117 H (74-99) mg/dL POC Glucose (mg/dL) 123 H (75-99) mg/dL Calcium 7.9 L (8.4-10.2) mg/dL Magnesium (1.6-2.3) mg/dL AST 44 H (13-35) U/L ALT 48 H (8-44) U/L Alkaline Phosphatase 128 H (41-126) U/L C-Reactive Protein 12.3 H (<10.0) mg/L Total Protein 5.2 L (6.2-8.2) g/dL Albumin 3.30 L (3.80-4.90) g/dL 12/23/20 12/23/20 12/23/20 Range/Units 05:38 08:50 08:50 RBC 2.98 L 2.83 L (4.10-5.20) X 10*6/uL Hgb 9.7 L 9.4 L (12.0-15.0) g/dL Hct 32.0 L 29.3 L (37.2-46.3) % MCV 107.4 H 103.7 H (80.0-97.0) fL MCH 32.6 H (27.0-32.0) pg MCHC 30.3 L (32.0-37.0) g/dL RDW 15.9 H (11.5-14.5) % Lymphocytes # 0.9 L (1.0-4.8) k/uL ESR (0-20) mm/hr Sodium 149 H (137-145) mmol/L Chloride 114 H (98-107) mmol/L Carbon Dioxide (22-30) mmol/L BUN 25 H (7-17) mg/dL Creatinine 0.45 L (0.52-1.04) mg/dL BUN/Creatinine Ratio (12.00-20.00) Ratio Glucose 126 H (74-99) mg/dL POC Glucose (mg/dL) (75-99) mg/dL Calcium 7.7 L (8.4-10.2) mg/dL Magnesium 2.4 H (1.6-2.3) mg/dL AST 46 H (13-35) U/L ALT 45 H (8-44) U/L Alkaline Phosphatase (41-126) U/L C-Reactive Protein (<10.0) mg/L Total Protein 5.0 L (6.2-8.2) g/dL Albumin 2.6 L (3.80-4.90) g/dL 12/23/20 Range/Units 11:09 RBC (4.10-5.20) X 10*6/uL Hgb (12.0-15.0) g/dL Hct (37.2-46.3) % MCV (80.0-97.0) fL MCH (27.0-32.0) pg MCHC (32.0-37.0) g/dL RDW (11.5-14.5) % Lymphocytes # (1.0-4.8) k/uL ESR (0-20) mm/hr Sodium (137-145) mmol/L Chloride (98-107) mmol/L Carbon Dioxide (22-30) mmol/L BUN (7-17) mg/dL Creatinine (0.52-1.04) mg/dL BUN/Creatinine Ratio (12.00-20.00) Ratio Glucose (74-99) mg/dL POC Glucose (mg/dL) 111 H (75-99) mg/dL Calcium (8.4-10.2) mg/dL Magnesium (1.6-2.3) mg/dL AST (13-35) U/L ALT (8-44) U/L Alkaline Phosphatase (41-126) U/L C-Reactive Protein (<10.0) mg/L Total Protein (6.2-8.2) g/dL Albumin (3.80-4.90) g/dL Microbiology - Last 24 Hours (Table) 12/17/20 14:35 Blood Culture - Preliminary Blood No Growth after 120 hours 12/17/20 14:55 Blood Culture - Preliminary Blood No Growth after 120 hours
[2020-12-23] MEDS: LORazepam 0.5 MG TAB PEG/G-TUBE SCH ×2 (13:10→17:14)
[2020-12-23 16:57] LABS: Glucose,Whole Blood 123 mg/dL (75-99)
[2020-12-23 17:11] LABS: African American GFR (CKD) >90 (>60 ml/min/1.73 sqM); Anion Gap 2 mmol/L; Blood Urea Nitrogen 24 mg/dL (7-17); Calcium 7.9 mg/dL (8.4-10.2); Carbon Dioxide 33 mmol/L (22-30); Chloride 111 mmol/L (98-107); Glucose 113 mg/dL (74-99); Non-African American GFR(CKD) >90 (>60 ml/min/1.73 sqM); Sodium 146 mmol/L (137-145)
[2020-12-23] MEDS: polyethylene glycoL 3350 17 GM POWD.PACK PEG/G-TUBE SCH (17:14)
--- NOTE | 2020-12-23 18:56 | PN ---
PROGRESS NOTE DATE OF SERVICE: 12/23/2020 REASON FOR FOLLOWUP: Fever. INTERVAL HISTORY: Patient continues spiking a fever of 101-102 degrees Fahrenheit. The patient is hemodynamically stable with these episodes of fever. The patient is currently on room air. No vomiting or diarrhea or any changes reported by nursing staff. On examination, her blood pressure 99/57, pulse 84, temperature 101.7. She is 95% on room air. General description is a middle-aged female lying in bed in no distress. Respiratory system: Unlabored breathing, clear to auscultation anteriorly. Heart S1, S2. Regular rate and rhythm. Abdomen soft. No tenderness. LABS: BUN of 24, creatinine 0.43. Hemoglobin 11.4, white count 7.3. DIAGNOSTIC IMPRESSION AND PLAN: Patient with fever in this patient who did have extensive workup and all of this has been negative. She did have multiple cultures that have been negative. Did have positive urinary tract infection with urine showing Klebsiella E coli that has been adequately treated. Repeat urine has been negative. CT of abdomen and pelvis with question of large bowel ileus. We will adjust antibiotics to cover for the skin enid with Zosyn. Vanco will be discontinued and continue supportive care. MMODL / IJN: [id number] /
[2020-12-23] MEDS: PIPERACILLIN-TAZOBACTAM 3.375 GM in SODIUM CHLORIDE 0.9% 100 ML IVPB SCH (20:21)
[2020-12-23] MEDS: LORazepam 1 MG TAB PEG/G-TUBE SCH (21:39)
[2020-12-24] MEDS ORDERED: METOCLOPRAMIDE 5 MG/ML 2 ML VIAL IVP SCH
[2020-12-24 00:22] LABS: Glucose,Whole Blood 120 mg/dL (75-99)
[2020-12-24] MEDS: ACETAMINOPHEN ORAL SUSP (PEDS) 3,840 MG/120 ML BOTTLE PO PRN (01:42)
[2020-12-24] MEDS: HYDROcodone/APAP 15 ML SOLUTION PO PRN ×3 (04:24→16:51)
[2020-12-24] MEDS: PIPERACILLIN-TAZOBACTAM 3.375 GM in SODIUM CHLORIDE 0.9% 100 ML IVPB SCH ×3 (04:25→20:16)
[2020-12-24 06:04] LABS: Glucose,Whole Blood 120 mg/dL (75-99)
[2020-12-24 08:30] LABS: HCT 28.8 % (37.2-46.3); HGB 8.8 g/dL (12.0-15.0); MCH 32.7 pg (27.0-32.0); MCHC 30.6 g/dL (32.0-37.0); MCV 107.1 fL (80.0-97.0); Mean Platelet Volume 12.2 fL (9.5-12.2); Platelet Count 198 X 10*3/uL (140-440); RBC 2.69 X 10*6/uL (4.10-5.20); RDW 16.5 % (11.5-14.5)
[2020-12-24] MEDS: IBUPROFEN 400 MG TAB PO SCH ×2 (09:26→16:52)
[2020-12-24] MEDS: ACETAMINOPHEN TAB 500 MG TAB PEG/G-TUBE SCH ×2 (09:27→20:16)
[2020-12-24] MEDS: METOCLOPRAMIDE ORAL SOLN 10 MG/10 ML CUP PEG/G-TUBE SCH ×2 (09:27→20:17)
[2020-12-24] MEDS: AMIODARONE 200 MG TAB PEG/G-TUBE SCH (09:27)
[2020-12-24] MEDS: VALPROIC ACID ORAL SOLN 250 MG/5 ML CUP PEG/G-TUBE SCH ×2 (09:28→20:20)
[2020-12-24] MEDS: levETIRAcetam ORAL SOLN 500 MG/5 ML CUP PEG/G-TUBE SCH ×2 (09:28→20:17)
[2020-12-24] MEDS: FLUCONAZOLE ORAL SUSP 1,400 MG/35 ML BOTTLE PEJ/J-Tube SCH (09:29)
[2020-12-24] MEDS: HEPARIN SODIUM,PORCINE 5,000 UNIT/ML 1 ML VIAL SQ SCH ×2 (09:29→16:52)
[2020-12-24] MEDS: polyethylene glycoL 3350 17 GM POWD.PACK PEG/G-TUBE SCH (09:30)
[2020-12-24 09:39] LABS: African American GFR (CKD) 121.1 (60.0-200.0); Anion Gap 4.6 mmol/L (4.00-12.00); Calcium 7.9 mg/dL (8.7-10.3); Carbon Dioxide 32.4 mmol/L (21.6-31.8); Non-African American GFR(CKD) 104.5 (60.0-200.0)
[2020-12-24] MEDS ORDERED: ANIDULAFUNGIN 200 MG in SODIUM CHLORIDE 0.9% 200 ML IVPB ONE (10:00)
--- NOTE | 2020-12-24 10:15 | P.PN ---
Subjective Progress Note Date: 12/24/20 Hospital course: Patient is a 60-year-old female whom resides in an [facility] home due to significant developmental delays and is bedbound with upper extremity contractures, lower extremity contractures, and a Peg tube. She has a past medical history of seizure disorders on Keppra and Depakote, tremors on risperidone, a cardiac arrhythmia on amiodarone, hyperlipidemia, a bowel obstruction resulting in colostomy followed by reversal, and history of dysphagia with aspiration pneumonia and is peg tube dependent for meals and medications. She presented to the hospital with reports of fevers status post recent PEG tube replacement at [facility]. Upon arrival to facility, patient was found to be febrile at 101.7F and noted to have significant bruising to her RUE and when the [facility] home was contacted, it was reported that pt had fallen 4 days prior. Patient had full workup in the emergency department and was found to have leukocytosis with WBC count of 16.4, urinalysis was positive for infection, BMP showing mild renal azotemia with BUN of 27, and liver profile revealing an elevated AST of 94 and ALT of 40. An EKG was completed showing sinus tachycardia at 105 bpm with no noted signs of ischemia. Chest x-ray revealed new bilateral anterior dislo cation of the shoulder joints and was negative for acute cardiopulmonary process revealing widening of the mediastinum and a tortuous aortic arch which was previously noted on CT 10/31/20. X-ray bilateral shoulders demonstrating a bilateral anterior dislocation of the humeral heads with a possible chip fracture of the right humerus. Patient was initially admitted under general surgery team and bilateral shoulder dislocations were found to be chronic after failing reduction intraoperatively. Pt was then transferred under our services for pyrexia and UTI with sepsis receiving IV antibiotics. Urine cultures were positive for Klebsiella and E. coli. Infectious disease was consulted and changed patient's antibiotics to Invanz and later to zosyn. Patient has continued to be febrile throughout hospitalization with temp elevated as high as 103.0F and is currently 101.4F. Additional tests were completed including Doppler bilateral lower extremities which was negative for DVT. Doppler right upper extremity which was also negative for DVT showing small hypoechoic collection measuring 4.2 x 2.2 x 1.3 cm likely to be a small hematoma. CT abdomen and pelvis revealing diffuse anasarca with trace upper abdominal ascites, prominent dependent opacities in the visualized lung bases likely at electasis vs pneumonia or aspiration, enlargement of liver, a 7 cm long segment of narrowed and circumferentially thickened colon at the hepatic flexure, moderate circumferential bladder wall thickening with a noted 8 mm nodularity along the posterior bladder wall, and a mild superior endplate deformity of L5. CT PE completed negative for pulmonary emboli showing by basilar atelectasis and small left effusion. CT abdomen and pelvis with IV contrast revealing a large bowel ileus. Blood cultures revealing no growth after 144 hours. Physical exam: Patient was seen and evaluated at bedside this morning. She continues to be febrile and is currently on a 101.4F with high over the past 24 hours being 102.[address]F. Orders place for scheduled Tylenol and Motrin. Patient again appears uncomfortable this morning, moderate tremors and occasional moaning. With the exception of patient's elevated temperature, vital signs otherwise unremarkable. Patient continues to have hypernatremia, we will increase free water flushes to 150 mL's every 6 hours and repeat a sodium level at 3 PM this afternoon and again tomorrow a.m. to monitor closely. General: non toxic, showing no signs of acute distress Derm: Bruising and swelling to RUE near axillary region extending into shoulder and Bruising and swelling to LUE near axillary region. Skin otherwise warm and dry with blanchable erythema to coccyx and no breakdown noted. Head: atraumatic, normocephalic, symmetric Eyes: no lid lag, anicteric sclera Mouth: mucus membranes dry and pasty, poor dentition Cardiovascular: S1S2 reg, no murmur, positive posterior tibial pulses bilaterally. Lungs: Respirations even, regular, and unlabored on 3 L O2 via nasal cannula. Decreased breath sounds bilaterally throughout. No wheezes, rhonchi, or rales noted. No accessory muscle usage. Abdominal: soft, no noted tenderness upon palpation, no guarding, no appreciable organomegaly. Peg tube in place LUQ, no signs of erythema or drainage surrounding. Ext: Gross muscle atrophy with bilateral upper and lower extremity contractures and diffuse anasarca. Neuro: Bilateral upper extremity contractures, bilateral lower extremity contractures, resting tremor present. Psych: Awake Assessment and Plan of Care: Pyrexia with normal white count, patient continues to have elevated temp of 101.4F this morning -Undetermined etiology. -Chest x-ray with atelectasis -CT abdomen and pelvis without contrast revealed diffuse anasarca with trace upper abdominal ascites, prominent dependent opacities in the visualized lung bases likely atelectasis vs pneumonia or aspiration, enlargement of liver, a 7 cm long segment of narrowed and circumferentially thickened colon at the hepatic flexure, moderate circumferential bladder wall thickening with a noted 8 mm nodularity along the posterior bladder wall, and a mild superior endplate de formity of L5. -CT PE completed negative for pulmonary emboli showing by basilar atelectasis and small left effusion. -CT abdomen and pelvis with IV contrast revealing a large bowel ileus. -Blood cultures revealing no growth after 144 hours. -Pt received 5 day course of Invanz and is now on day 2 of Zosyn and vancomycin. -Infectious disease following, appreciate further recommendations. -Patient placed on scheduled Tylenol and Motrin. Hypernatremia -Free water flushes via via peg tube increased to 150 mL/6 hours. -Repeat sodium at 3 PM this afternoon and again tomorrow a.m. for close monitoring and further adjustments to be made as needed. Large bowel ileus, improving -CT abdomen and pelvis with IV contrast revealing a large bowel ileus. -Gen. surgery following. -Patient has now had 5 bowel movements over the past 24 hours, Reglan decreased from every 6 hours to 5 mg twice daily via PEG tube. Klebsiella and E. coli urinary tract infection, present on admission, sepsis on arrival -Urine cultures positive for Klebsiella and E. coli -Continue antibiotics. -Continue close monitoring of I's and O's -Infectious disease following, further recommendations appreciated. Macrocytic macrochromic Anemia, stable -Undetermined etiology -HgB stable 8.8 -Iron 30 with TIBC of 220. -B12 685 -RBC folate 1,144 Chronic bilateral shoulder dislocations -Chest x-ray revealed new bilateral anterior dislocation of the shoulder joints and was negative for acute cardiopulmonary process revealing widening of the mediastinum and a tortuous aortic arch which was previously noted on CT 10/31/20. -X-ray bilateral shoulders demonstrating a bilateral anterior dislocation of the humeral heads with a possible chip fracture of the right humerus. -Failed reduction intraoperatively as it was noted that these were chronic dislocations. -Symptomatic treatment and pain management. Elevated d-dimer - US BLE negative, US RUE negative for DVT -CT PE completed negative for pulmonary emboli showing by basilar atelectasis and small left effusion. Hyperglycemia, stable -Hemoglobin A1c 5.6 Seizure Disorder -Seizure precautions and aspiration precautions in place -Continue daily medication regimen with Keppra and Depakote. Dysphagia -Continue tube feeds -Surgery replaced Peg tube 12/21/20. Cognitive disability -Will return to [facility] snf upon discharge. -Sister is guardian -Supportive care. -Turn every 2 hours Bladder calculi or mass -Outpatient follow-up with urology after treatment of UTI -Suspect likely bladder calculi as repeat CT did not identify calculi or mass and it likely due to contrast within the urine. Code Status: Full code with instructions: No mechanical ventilation DVT prophylaxis: Heparin Discussed with: Patient, RN Anticipated discharge: Clinical course to determine, possibly tomorrow. Anticipated discharge place: return to [facility] A total of 45 minutes was spent on the care of this complex patient more than 50% of the time was spent in counseling and care coordination. Objective - Vital Signs Vital signs: Vital Signs Temp 101.4 F H 12/24/20 07:29 Pulse 85 12/24/20 07:29 Resp 16 12/24/20 07:29 BP 101/65 12/24/20 07:29 Pulse Ox 98 12/24/20 07:29 Intake & Output 12/23/20 12/24/20 12/24/20 18:59 06:59 18:59 Weight 58.5 kg Other: Voiding Method External Catheter # Voids 2 # Bowel Movements 5 - Labs CBC & Chem 7: 12/24/20 05:33 12/24/20 05:33 Labs: Abnormal Lab Results - Last 24 Hours (Table) 12/23/20 12/23/20 12/23/20 Range/Units 05:38 11:09 16:15 RBC (4.10-5.20) X 10*6/uL Hgb (12.0-15.0) g/dL Hct (37.2-46.3) % MCV (80.0-97.0) fL MCH (27.0-32.0) pg MCHC (32.0-37.0) g/dL RDW (11.5-14.5) % Sodium 152 H 146 H (135-145) mmol/L Chloride 115 H 111 H (96-109) mmol/L Carbon Dioxide 33 H (22-30) mmol/L BUN 24 H (7-17) mg/dL Creatinine 0.5 L 0.43 L (0.6-1.5) mg/dL BUN/Creatinine Ratio 54.00 H (12.00-20.00) Ratio Glucose 117 H 113 H (70-110) mg/dL POC Glucose (mg/dL) 111 H (75-99) mg/dL Calcium 7.9 L 7.9 L (8.7-10.3) mg/dL AST 44 H (13-35) U/L ALT 48 H (8-44) U/L Alkaline Phosphatase 128 H (41-126) U/L Total Protein 5.2 L (6.2-8.2) g/dL Albumin 3.30 L (3.80-4.90) g/dL 12/23/20 12/24/20 12/24/20 Range/Units 16:55 00:21 05:33 RBC (4.10-5.20) X 10*6/uL Hgb (12.0-15.0) g/dL Hct (37.2-46.3) % MCV (80.0-97.0) fL MCH (27.0-32.0) pg MCHC (32.0-37.0) g/dL RDW (11.5-14.5) % Sodium 152 H (135-145) mmol/L Chloride 115 H (96-109) mmol/L Carbon Dioxide 32.4 H (22-30) mmol/L BUN (7-17) mg/dL Creatinine 0.5 L (0.6-1.5) mg/dL BUN/Creatinine Ratio 50.00 H (12.00-20.00) Ratio Glucose (70-110) mg/dL POC Glucose (mg/dL) 123 H 120 H (75-99) mg/dL Calcium 7.9 L (8.7-10.3) mg/dL AST (13-35) U/L ALT (8-44) U/L Alkaline Phosphatase (41-126) U/L Total Protein (6.2-8.2) g/dL Albumin (3.80-4.90) g/dL 12/24/20 12/24/20 Range/Units 05:33 06:02 RBC 2.69 L (4.10-5.20) X 10*6/uL Hgb 8.8 L (12.0-15.0) g/dL Hct 28.8 L (37.2-46.3) % MCV 107.1 H (80.0-97.0) fL MCH 32.7 H (27.0-32.0) pg MCHC 30.6 L (32.0-37.0) g/dL RDW 16.5 H (11.5-14.5) % Sodium (135-145) mmol/L Chloride (96-109) mmol/L Carbon Dioxide (22-30) mmol/L BUN (7-17) mg/dL Creatinine (0.6-1.5) mg/dL BUN/Creatinine Ratio (12.00-20.00) Ratio Glucose (70-110) mg/dL POC Glucose (mg/dL) 120 H (75-99) mg/dL Calcium (8.7-10.3) mg/dL AST (13-35) U/L ALT (8-44) U/L Alkaline Phosphatase (41-126) U/L Total Protein (6.2-8.2) g/dL Albumin (3.80-4.90) g/dL Microbiology - Last 24 Hours (Table) 12/22/20 21:36 Blood Culture - Preliminary Blood No Growth after 24 hours 12/17/20 14:35 Blood Culture - Final Blood No Growth after 144 hours 12/17/20 14:55 Blood Culture - Final Blood No Growth after 144 hours
[2020-12-24 11:31] LABS: Glucose,Whole Blood 131 mg/dL (75-99)
[2020-12-24] MEDS: LORazepam 0.5 MG TAB PEG/G-TUBE SCH ×2 (11:42→16:52)
--- NOTE | 2020-12-24 13:18 | P.PN ---
Subjective Progress Note Date: 12/24/20 CHIEF COMPLAINT: Fever HISTORY OF PRESENT ILLNESS: Patient seen and examined with Dr. madden. Surgical services is following regarding displaced peg tube and colonic ileus. Patient started on Reglan and is now having bowel movements. She is still having fevers. T-max 101.4 WBC 7.60 PHYSICAL EXAM: VITAL SIGNS: Reviewed. GENERAL: Well-developed in no acute distress. HEENT: No sclera icterus. Extraocular movements grossly intact. Moist buccal mucosa. Head is atraumatic, normocephalic. ABDOMEN: Soft. Nondistended. Nontender. PEG tube site clean dry and intact NEUROLOGIC: Nonverbal ASSESSMENT: 1. Displaced PEG tube. Patient is status post peg tube exchange with MELISSA PEG tube by Dr. Madden at the bedside. 2. History of dysphagia status post PEG tube placement with Dr. Madden on 11/04/2020 3. Colonic ileus improving PLAN: -Continue Reglan -Continue tube feedings -Continue supportive care Physician Sql Report Writer note has been reviewed by physician. Signing provider agrees with the documented findings, assessment, and plan of care. Objective - Vital Signs Vital signs: Vital Signs Temp 101.4 F H 12/24/20 07:29 Pulse 85 12/24/20 07:29 Resp 16 12/24/20 07:29 BP 101/65 12/24/20 07:29 Pulse Ox 98 12/24/20 07:29 Intake & Output 12/23/20 12/24/20 12/24/20 18:59 06:59 18:59 Weight 58.5 kg 58.5 kg Other: Voiding Method External Catheter # Voids 2 1 # Bowel Movements 5 - Labs CBC & Chem 7: 12/24/20 05:33 12/24/20 05:33 Labs: Abnormal Lab Results - Last 24 Hours (Table) 12/23/20 12/23/20 12/24/20 Range/Units 16:15 16:55 00:21 RBC (4.10-5.20) X 10*6/uL Hgb (12.0-15.0) g/dL Hct (37.2-46.3) % MCV (80.0-97.0) fL MCH (27.0-32.0) pg MCHC (32.0-37.0) g/dL RDW (11.5-14.5) % Sodium 146 H (137-145) mmol/L Chloride 111 H (98-107) mmol/L Carbon Dioxide 33 H (22-30) mmol/L BUN 24 H (7-17) mg/dL Creatinine 0.43 L (0.52-1.04) mg/dL BUN/Creatinine Ratio (12.00-20.00) Ratio Glucose 113 H (74-99) mg/dL POC Glucose (mg/dL) 123 H 120 H (75-99) mg/dL Calcium 7.9 L (8.4-10.2) mg/dL 12/24/20 12/24/20 12/24/20 Range/Units 05:33 05:33 06:02 RBC 2.69 L (4.10-5.20) X 10*6/uL Hgb 8.8 L (12.0-15.0) g/dL Hct 28.8 L (37.2-46.3) % MCV 107.1 H (80.0-97.0) fL MCH 32.7 H (27.0-32.0) pg MCHC 30.6 L (32.0-37.0) g/dL RDW 16.5 H (11.5-14.5) % Sodium 152 H (137-145) mmol/L Chloride 115 H (98-107) mmol/L Carbon Dioxide 32.4 H (22-30) mmol/L BUN (7-17) mg/dL Creatinine 0.5 L (0.52-1.04) mg/dL BUN/Creatinine Ratio 50.00 H (12.00-20.00) Ratio Glucose (74-99) mg/dL POC Glucose (mg/dL) 120 H (75-99) mg/dL Calcium 7.9 L (8.4-10.2) mg/dL 12/24/20 Range/Units 11:28 RBC (4.10-5.20) X 10*6/uL Hgb (12.0-15.0) g/dL Hct (37.2-46.3) % MCV (80.0-97.0) fL MCH (27.0-32.0) pg MCHC (32.0-37.0) g/dL RDW (11.5-14.5) % Sodium (137-145) mmol/L Chloride (98-107) mmol/L Carbon Dioxide (22-30) mmol/L BUN (7-17) mg/dL Creatinine (0.52-1.04) mg/dL BUN/Creatinine Ratio (12.00-20.00) Ratio Glucose (74-99) mg/dL POC Glucose (mg/dL) 131 H (75-99) mg/dL Calcium (8.4-10.2) mg/dL Microbiology - Last 24 Hours (Table) 12/22/20 21:36 Blood Culture - Preliminary Blood No Growth after 24 hours 12/17/20 14:35 Blood Culture - Final Blood No Growth after 144 hours 12/17/20 14:55 Blood Culture - Final Blood No Growth after 144 hours
[2020-12-24 15:28] LABS: African American GFR (CKD) >90 (>60 ml/min/1.73 sqM); Anion Gap 3 mmol/L; Blood Urea Nitrogen 24 mg/dL (7-17); Calcium 7.8 mg/dL (8.4-10.2); Carbon Dioxide 34 mmol/L (22-30); Chloride 110 mmol/L (98-107); Glucose 115 mg/dL (74-99); Non-African American GFR(CKD) >90 (>60 ml/min/1.73 sqM); Sodium 147 mmol/L (137-145)
[2020-12-24 17:22] LABS: Glucose,Whole Blood 141 mg/dL (75-99)
[2020-12-24] MEDS: LORazepam 1 MG TAB PEG/G-TUBE SCH (20:16)
[2020-12-24] MEDS ORDERED: VANCOMYCIN TROUGH DUE 1 EACH MISC MISCELLANE ONE (21:00)
--- NOTE | 2020-12-24 23:02 | PN ---
PROGRESS NOTE DATE OF SERVICE: 12/24/2020 REASON FOR FOLLOWUP: Fever, UTI INTERVAL HISTORY: The patient is still spiking a fever, though overall fever pattern is slightly improved. T-max has been 101.4. The patient is hemodynamically stable, not on pressor support. The patient is not requiring supplemental oxygen. She has been tolerating her tube feeds. Noted to have some diarrhea. She is unable to provide any history. PHYSICAL EXAMINATION: Blood pressure 148/90 with a pulse of 90, temperature 100.6. She is 97% on 3 L nasal cannula. General description is an elderly female lying in bed in no distress. RESPIRATORY SYSTEM: Unlabored breathing with decreased breath sounds at the base. No wheeze. HEART: S1, S2. Regular rate and rhythm. ABDOMEN: Soft. No tenderness. EXTREMITIES: No edema of the feet. LABS: Hemoglobin 8.9, white count 7.60, BUN of 24, creatinine 0.45. DIAGNOSTIC IMPRESSION AND PLAN: Patient with persistent fever that could be related to bilateral shoulder area bruising and hematomas, as the patient did have extensive workup to look for any source, and that has been negative. There was concern for possible abdominal source in view of the ileus, now with diarrhea. Stool for C difficile will be checked and antibiotic adjusted if needed. Continue supportive care. MMODL / IJN: [id number] / DASIA
[2020-12-25] MEDS: IBUPROFEN 400 MG TAB PO SCH (00:02)
[2020-12-25] MEDS: HYDROcodone/APAP 15 ML SOLUTION PO PRN ×4 (00:03→21:50)
[2020-12-25] MEDS: HEPARIN SODIUM,PORCINE 5,000 UNIT/ML 1 ML VIAL SQ SCH ×3 (00:04→16:37)
[2020-12-25 00:06] LABS: Glucose,Whole Blood 109 mg/dL (75-99)
[2020-12-25] MEDS: PIPERACILLIN-TAZOBACTAM 3.375 GM in SODIUM CHLORIDE 0.9% 100 ML IVPB SCH ×3 (05:00→21:49)
[2020-12-25 05:47] LABS: Glucose,Whole Blood 115 mg/dL (75-99)
[2020-12-25 07:53] LABS: African American GFR (CKD) >90 (>60 ml/min/1.73 sqM); Anion Gap 1 mmol/L; Blood Urea Nitrogen 25 mg/dL (7-17); Calcium 7.6 mg/dL (8.4-10.2); Carbon Dioxide 31 mmol/L (22-30); Chloride 113 mmol/L (98-107); Glucose 114 mg/dL (74-99); Non-African American GFR(CKD) >90 (>60 ml/min/1.73 sqM); Potassium 3.9 mmol/L (3.5-5.1); Sodium 145 mmol/L (137-145)
[2020-12-25 08:01] LABS: HGB 8.9 gm/dL (11.4-16.0); Hypochromasia Slight; MCH 32.5 pg (25.0-35.0); MCHC 30.9 g/dL (31.0-37.0); MCV 105.1 fL (80.0-100.0); Macrocytosis Moderate; Mean Platelet Volume 9.6; Platelet Count 207 k/uL (150-450); RBC 2.76 m/uL (3.80-5.40); WBC 7.1 k/uL (3.8-10.6)
[2020-12-25] MEDS: ANIDULAFUNGIN 100 MG in SODIUM CHLORIDE 0.9% 100 ML IVPB SCH (09:15)
[2020-12-25] MEDS: ACETAMINOPHEN TAB 500 MG TAB PEG/G-TUBE SCH ×2 (09:15→21:49)
[2020-12-25] MEDS: AMIODARONE 200 MG TAB PEG/G-TUBE SCH (09:15)
[2020-12-25] MEDS: VALPROIC ACID ORAL SOLN 250 MG/5 ML CUP PEG/G-TUBE SCH ×2 (09:16→21:50)
[2020-12-25] MEDS: levETIRAcetam ORAL SOLN 500 MG/5 ML CUP PEG/G-TUBE SCH ×2 (09:16→21:50)
[2020-12-25] MEDS: polyethylene glycoL 3350 17 GM POWD.PACK PEG/G-TUBE SCH (09:17)
[2020-12-25] MEDS: risperiDONE 2 MG TAB PEG/G-TUBE SCH (09:17)
[2020-12-25] MEDS: METOCLOPRAMIDE ORAL SOLN 10 MG/10 ML CUP PEG/G-TUBE SCH ×2 (09:17→21:50)
--- NOTE | 2020-12-25 10:47 | P.PN ---
Subjective Progress Note Date: 12/25/20 Patient is awake and alert. She appears to have persistent and worsening tics involving repetitive lip smacking and making repetitive sounds. She appeared more agitated and I got closer to her to examine her abdomen. She is still having low-grade fever over the last 24 hours despite being on Tylenol 1000 mg scheduled twice daily. Objective - Vital Signs Vital signs: Vital Signs Temp 99.6 F 12/25/20 08:00 Pulse 73 12/25/20 08:00 Resp 18 12/25/20 08:00 BP 102/62 12/25/20 08:00 Pulse Ox 99 12/25/20 08:00 Intake & Output 12/24/20 12/25/20 12/25/20 18:59 06:59 18:59 Weight 58.5 kg 58 kg Other: Voiding Method Diaper # Voids 1 3 # Bowel Movements 0 - Exam General: The patient is awake and alert. She is having repetitive lip smacking and making same noise Eye: there is normal conjunctiva bilaterally. Neck: The neck is supple, there is no JVD. Cardiovascular: Normal S1-S2, no S3-S4, no murmurs. Respiratory: Lungs clear to anterior chest auscultation bilaterally Gastrointestinal: Abdomen is soft, nontender. PEG tube in place Musculoskeletal: There is no pedal edema. Skin: Skin is warm and dry - Labs CBC & Chem 7: 12/25/20 07:05 12/25/20 07:05 Labs: Abnormal Lab Results - Last 24 Hours (Table) 12/24/20 12/24/20 12/24/20 Range/Units 11:28 14:57 17:02 RBC (3.80-5.40) m/uL Hgb (11.4-16.0) gm/dL Hct (34.0-46.0) % MCV (80.0-100.0) fL MCHC (31.0-37.0) g/dL RDW (11.5-15.5) % Sodium 147 H (137-145) mmol/L Chloride 110 H (98-107) mmol/L Carbon Dioxide 34 H (22-30) mmol/L BUN 24 H (7-17) mg/dL Creatinine 0.45 L (0.52-1.04) mg/dL Glucose 115 H (74-99) mg/dL POC Glucose (mg/dL) 131 H 141 H (75-99) mg/dL Calcium 7.8 L (8.4-10.2) mg/dL 12/25/20 12/25/20 12/25/20 Range/Units 00:04 05:45 07:05 RBC (3.80-5.40) m/uL Hgb (11.4-16.0) gm/dL Hct (34.0-46.0) % MCV (80.0-100.0) fL MCHC (31.0-37.0) g/dL RDW (11.5-15.5) % Sodium (137-145) mmol/L Chloride 113 H (98-107) mmol/L Carbon Dioxide 31 H (22-30) mmol/L BUN 25 H (7-17) mg/dL Creatinine 0.47 L (0.52-1.04) mg/dL Glucose 114 H (74-99) mg/dL POC Glucose (mg/dL) 109 H 115 H (75-99) mg/dL Calcium 7.6 L (8.4-10.2) mg/dL 12/25/20 Range/Units 07:05 RBC 2.76 L (3.80-5.40) m/uL Hgb 8.9 L (11.4-16.0) gm/dL Hct 29.0 L (34.0-46.0) % MCV 105.1 H (80.0-100.0) fL MCHC 30.9 L (31.0-37.0) g/dL RDW 16.0 H (11.5-15.5) % Sodium (137-145) mmol/L Chloride (98-107) mmol/L Carbon Dioxide (22-30) mmol/L BUN (7-17) mg/dL Creatinine (0.52-1.04) mg/dL Glucose (74-99) mg/dL POC Glucose (mg/dL) (75-99) mg/dL Calcium (8.4-10.2) mg/dL Microbiology - Last 24 Hours (Table) 12/22/20 21:36 Blood Culture - Preliminary Blood No Growth after 48 hours Assessment and Plan Assessment: Patient is a 60-year-old female whom resides in an home due to significant developmental delays and is bedbound with upper extremity contractures, lower extremity contractures, and a Peg tube. She has a past medical history of seizure disorders on Keppra and Depakote, tremors on risperidone, a cardiac arrhythmia on amiodarone, hyperlipidemia, a bowel obstruction resulting in colostomy followed by reversal, and history of dysphagia with aspiration pneumonia and is peg tube dependent for meals and medications. She presented to the hospital with reports of fevers status post recent PEG tube replacement at [facility]. Upon arrival to facility, patient was found to be febrile at 101.7F and noted to have significant bruising to her RUE and when the [facility] home was contacted, it was reported that pt had fallen 4 days prior. X-ray bilateral shoulders demonstrating a bilateral anterior dislocation of the humeral heads with a possible chip fracture of the right humerus. Patient was initially admitted under general surgery team and bilateral shoulder dislocations were found to be chronic after failing reduction intraoperatively. Pt was then transferred under our services for pyrexia and UTI with sepsis receiving IV antibiotics. Urine cultures were positive for Klebsiella and E. coli. Infectious disease was consulted and changed patient's antibiotics to Invanz and later to zosyn. Patient has continued to be febrile throughout hospitalization with temp elevated as high as 103.0F and is currently 101.4F. Additional tests were completed including Doppler bilateral lower extremities which was negative for DVT. Doppler right upper extremity which was also negative for DVT showing small hypoechoic collection measuring 4.2 x 2.2 x 1.3 cm likely to be a small hematoma. CT abdomen and pelvis revealing diffuse anasarca with trace upper abdominal ascites, prominent dependent opacities in the visualized lung bases likely atelectasis vs pneumonia or aspiration, enlargement of liver, a 7 cm long segment of narrowed and circumferentially thickened colon at the hepatic flexure, moderate circumferential bladder wall thickening with a noted 8 mm nodularity along the posterior bladder wall, and a mild superior endplate deformity of L5. CT PE completed negative for pulmonary emboli showing by basilar atelectasis and small left effusion. CT abdomen and pelvis with IV contrast revealing a large bowel ileus. Blood cultures revealing no growth after 144 hours. Assessment and Plan of Care: Pyrexia with normal white count, patient continues to have fever -Undetermined etiology with no clear source of infection. Atelectasis may be a contributing factor versus central fever. Also bilateral arm hematoma may be a contributing factor -Seen and evaluated by infectious disease. -Chest x-ray with atelectasis -CT PE completed negative for pulmonary emboli showing by basilar atelectasis and small left effusion. -CT abdomen and pelvis with IV contrast revealing a large bowel ileus that resolved clinically. -Blood cultures revealing no growth -Pt received 5 day course of Invanz and is now on day 3 of Zosyn. She was started on Diflucan and transition to Eraxis today -Infectious disease following, appreciate further recommendations. -Patient placed on scheduled Tylenol 1000 mg twice daily Developmental delay with underlying seizure disorder and now worsening persistent tics: - Patient is on Keppra, Depakote, and risperidone - I would obtain Keppra and Depakote levels - Consult neurology for further recommendation that may improve her symptoms -Also on Ativan schedule Hypernatremia -Free water flushes via via peg tube increased to 150 mL/6 hours. Large bowel ileus, improving -CT abdomen and pelvis with IV contrast revealing a large bowel ileus. -Gen. surgery following. -Patient had multiple bowel movements. Currently on Reglan twice daily and MiraLAX daily Klebsiella and E. coli urinary tract infection, present on admission, sepsis on arrival -Had a prolonged course of antibiotic. Macrocytic macrochromic Anemia, stable Chronic bilateral shoulder dislocations and bilateral arms hematoma -Failed reduction intraoperatively as it was noted that these were chronic dislocations. -Symptomatic treatment and pain management. Elevated d-dimer - US BLE negative, US RUE negative for DVT -CT PE completed negative for pulmonary emboli showing by basilar atelectasis and small left effusion. Seizure Disorder -Seizure precautions and aspiration precautions in place -Continue daily medication regimen with Keppra and Depakote. Dysphagia -Continue tube feeds -Surgery replaced Peg tube 12/21/20. Cognitive disability -Will return to [facility] long-term versus longterm upon discharge. -Sister is guardian Bladder calculi or mass -Outpatient follow-up with urology Code Status: Full code with instructions: No mechanical ventilation DVT prophylaxis: Heparin Discussed with: Patient, RN Anticipated discharge: Clinical course to determine, possibly tomorrow. Anticipated discharge place: return to [facility] A total of 45 minutes was spent on the care of this complex patient more than 50% of the time was spent in counseling and care coordination.
[2020-12-25] MEDS ORDERED: POTASSIUM CHLORIDE 20 MEQ in WATER FOR INJECTION 1 100ML.BAG IVPB STA (10:48)
[2020-12-25 11:30] LABS: Glucose,Whole Blood 131 mg/dL (75-99)
[2020-12-25] MEDS: LORazepam 0.5 MG TAB PEG/G-TUBE SCH ×2 (13:44→16:30)
--- NOTE | 2020-12-25 14:53 | P.PN ---
Subjective Progress Note Date: 12/25/20 CHIEF COMPLAINT: Fever HISTORY OF PRESENT ILLNESS: Patient seen and examined with Dr. madden. Surgical services is following regarding displaced peg tube and colonic ileus. Patient started on Reglan and is now having bowel movements. Her last bowel movement was yesterday morning. She is still having fevers. T-max 101.4 WBC 7.1 PHYSICAL EXAM: VITAL SIGNS: Reviewed. GENERAL: Well-developed in no acute distress. HEENT: No sclera icterus. Extraocular movements grossly intact. Moist buccal mucosa. Head is atraumatic, normocephalic. ABDOMEN: Soft. Nondistended. Nontender. PEG tube site clean dry and intact NEUROLOGIC: Nonverbal ASSESSMENT: 1. Displaced PEG tube. Patient is status post peg tube exchange with MELISSA PEG tube by Dr. Madden at the bedside. 2. History of dysphagia status post PEG tube placement with Dr. Madden on 11/04/2020 3. Colonic ileus improving PLAN: -Continue Reglan -Continue tube feedings -Continue supportive care Physician Software Project Engineer note has been reviewed by physician. Signing provider agrees with the documented findings, assessment, and plan of care. Objective - Vital Signs Vital signs: Vital Signs Temp 99.6 F 12/25/20 08:00 Pulse 73 12/25/20 08:00 Resp 18 12/25/20 08:00 BP 102/62 12/25/20 08:00 Pulse Ox 99 12/25/20 08:00 Intake & Output 12/24/20 12/25/20 12/25/20 18:59 06:59 18:59 Weight 58.5 kg 58 kg Other: Voiding Method Diaper Diaper # Voids 1 3 # Bowel Movements 0 - Labs CBC & Chem 7: 12/25/20 07:05 12/25/20 07:05 Labs: Abnormal Lab Results - Last 24 Hours (Table) 12/24/20 12/24/20 12/25/20 Range/Units 14:57 17:02 00:04 RBC (3.80-5.40) m/uL Hgb (11.4-16.0) gm/dL Hct (34.0-46.0) % MCV (80.0-100.0) fL MCHC (31.0-37.0) g/dL RDW (11.5-15.5) % Sodium 147 H (137-145) mmol/L Chloride 110 H (98-107) mmol/L Carbon Dioxide 34 H (22-30) mmol/L BUN 24 H (7-17) mg/dL Creatinine 0.45 L (0.52-1.04) mg/dL Glucose 115 H (74-99) mg/dL POC Glucose (mg/dL) 141 H 109 H (75-99) mg/dL Calcium 7.8 L (8.4-10.2) mg/dL 12/25/20 12/25/20 12/25/20 Range/Units 05:45 07:05 07:05 RBC 2.76 L (3.80-5.40) m/uL Hgb 8.9 L (11.4-16.0) gm/dL Hct 29.0 L (34.0-46.0) % MCV 105.1 H (80.0-100.0) fL MCHC 30.9 L (31.0-37.0) g/dL RDW 16.0 H (11.5-15.5) % Sodium (137-145) mmol/L Chloride 113 H (98-107) mmol/L Carbon Dioxide 31 H (22-30) mmol/L BUN 25 H (7-17) mg/dL Creatinine 0.47 L (0.52-1.04) mg/dL Glucose 114 H (74-99) mg/dL POC Glucose (mg/dL) 115 H (75-99) mg/dL Calcium 7.6 L (8.4-10.2) mg/dL 12/25/20 Range/Units 11:29 RBC (3.80-5.40) m/uL Hgb (11.4-16.0) gm/dL Hct (34.0-46.0) % MCV (80.0-100.0) fL MCHC (31.0-37.0) g/dL RDW (11.5-15.5) % Sodium (137-145) mmol/L Chloride (98-107) mmol/L Carbon Dioxide (22-30) mmol/L BUN (7-17) mg/dL Creatinine (0.52-1.04) mg/dL Glucose (74-99) mg/dL POC Glucose (mg/dL) 131 H (75-99) mg/dL Calcium (8.4-10.2) mg/dL Microbiology - Last 24 Hours (Table) 12/22/20 21:36 Blood Culture - Preliminary Blood No Growth after 48 hours
[2020-12-25 16:50] LABS: Glucose,Whole Blood 123 mg/dL (75-99)
--- NOTE | 2020-12-25 20:42 | P.CNNES ---
History of Present Illness Consult date: 12/25/20 Requesting physician: Atul Markham Reason for Consult: Persistent tics History of Present Illness: Patient is a 60-year-old female with history of mental retardation, pancytopenia, mild sensorineural hearing loss, history of dysphagia, nonverbal state, also history of previous colostomy for fecal obstruction. Neurology was consulted for possible persistent tics. On my review, it appears more like tardive dyskinesia, but the movement is quite active and fast, not typical tardive type of dyskinesia. Patient also has increased spasticity in the arms and legs, resting tremors only in the arms, right worse than left. Patient has been diagnosed with UTI, sepsis on antibiotics. Patient also has bilateral shoulder dislocation. This was felt to be chronic. Computed tomography scan of abdomen and pelvis revealed large bowel he has bilateral pleural effusions and atelectasis. Patient currently on amiodarone 200 mg daily, Keppra 500 mg twice a day, Depakote 375 mg twice a day, Risperdal 2 mg daily, lorazepam 1 mg at bedtime and 0.5 mg twice a day. Patient is not on any Cogentin. While in the hospital, patient is also on Reglan 5 mg twice a day. Patient's blood test shows WBC 7.1, hemoglobin 8.9, platelets 207. Electrolytes are normal, BUN 25, creatinine 0.47, Depakote 11.1, hemoglobin A1c 5.2, hepatic panel with AST 46, ALT 45 mildly elevated, normal ammonia. B12 [id number] Review of Systems ROS unobtainable: due to mental status Past Medical History Past Medical History: Asthma, COPD, Hearing Disorder / Deafness, Hyperlipidemia, Pneumonia, Seizure Disorder, Sleep Apnea/CPAP/BIPAP, Syncope, Vascular Disorder Additional Past Medical History / Comment(s): Recent bowel obstruction with colostomy and then reversal 08/02/20, constipation, cognitive delay/mentally challenged, bronchitis, dysphagia/has peg tube to supplement, pt has had previous aspiration pneumonia and staff at senior care states recently she has been having increased difficulty swallowing and have been utilizing peg tube more, tremors-sister states never determined cause, incontinent or urine and stool, normally walks with assist of one but not lately-too difficult, MELLY with no cpap but was wearing oxygen at 3L/NC until recently-it was dc/d, mild sensorineural bilateral hearing loss, sister states pt has hx of something ?cyst pericardial/R aortic arch, venous insufficiency, sister unsure if pt has ever had a seizure, L arm contractured, bilateral feet hammer toes, anemia, pancytopenia. History of Any Multi-Drug Resistant Organisms: None Reported Past Surgical History: Orthopedic Surgery Additional Past Surgical History / Comment(s): Peg tube, colectomy with ostomy placement, 08/02/20 reversal of colostomy; salvary gland left side removed, fx elbow surgery. Past Anesthesia/Blood Transfusion Reactions: No Reported Reaction Additional Past Anesthesia/Blood Transfusion Reaction / Comment(s): per [id number] hx of post-op reaction that she is aware of. Past Psychological History: Bipolar, Depression, Schizophrenia Additional Psychological History / Comment(s): Pt resides at [facility] in [place]. Her sister, Karol Birmingham is her legal guardian. Pt has peg tube. Patient nonambulatory. Smoking Status: Never smoker Past Alcohol Use History: None Reported Past Drug Use History: None Reported - Past Family History Mother Family Medical History: Vascular Disorder Additional Family Medical History / Comment(s): Mother of a ruptured brain aneurysm in her 50s. Father Family Medical History: Coronary Artery Disease (CAD), Diabetes Mellitus Additional Family Medical History / Comment(s): Father lived to be 92 yrs old. He had CABG Medications and Allergies Home Medications Medication Instructions Recorded Confirmed Type Amiodarone [Cordarone] 200 mg PEG/G-TUBE DAILY@0700 02/12/20 12/14/20 History polyethylene glycoL 3350 [Miralax] 17 gm PEG/G-TUBE DAILY@0700 07/19/20 12/14/20 History Saliva Stimulant Agents Comb.3 1 spray MUCOUS MEM 11/01/20 12/14/20 History [Biotene Moisturizing Mouth] TID@0700,1700,2100 Valproic Acid Oral Soln [Depakene 375 mg PEG/G-TUBE BID@0700,209911/01/20 12/14/20 History Syrup] levETIRAcetam ORAL SOLN [Keppra 500 mg PEG/G-TUBE BID@0700,2100 11/01/20 12/14/20 History Oral Soln] risperiDONE [RisperDAL] 2 mg PEG/G-TUBE DAILY@0700 #10 tab 11/06/20 12/14/20 Rx Acetaminophen Tab [Tylenol] 650 mg PEG/G-TUBE Q4H PRN 12/14/20 12/14/20 History Hydrophilic Cream [Triad Cream] 1 applic TOPICAL TID@0700,1500,2100 12/14/20 12/14/20 History Ipratropium-Albuterol Nebulize 3 ml INHALATION RT-QID PRN 12/14/20 12/14/20 History [Duoneb 0.5 mg-3 mg/3 ml Soln] LORazepam [Ativan] 0.5 mg PEG/G-TUBE BID@1200,1600 12/14/20 12/14/20 History LORazepam [Ativan] 1 mg PEG/G-TUBE HS@2100 12/14/20 12/14/20 History Magnesium Hydroxide [Milk of 2,400 mg PEG/G-TUBE Q48H PRN 12/14/20 12/14/20 Hist ory Magnesia] Na Phos,M-B/Na Phos,Di-Ba [Fleet 133 ml RECTAL Q96D PRN 12/14/20 12/14/20 Histo ry Adult] Nutren Renal Liquid 1 can PEG/G-TUBE TID PRN 12/14/20 12/14/20 History Reguloid Powder 48.57% 1 tbsp PEG/G-TUBE BID@0700,2100 12/14/20 12/14/20 History bisacodyL [Bisacodyl] 10 mg RECTAL DAILY PRN 12/14/20 12/14/20 History Allergies Allergy/AdvReac Type Severity Reaction Status Date / Time quetiapine Allergy Unknown Unknown Verified 12/14/20 23:36 lithium Allergy Unknown Verified 12/14/20 23:36 topiramate [From Topamax] Allergy Unknown Verified 12/14/20 23:36 Physical Examination - Vital Signs Vital Signs: Vital Signs Temp Pulse Pulse Resp BP BP Pulse Ox 12/25/20 14:00 99.2 F 87 16 125/71 97 12/25/20 08:00 99.6 F 73 18 102/62 99 12/25/20 00:05 100.0 F H 73 18 107/77 99 12/24/20 20:15 100.7 F H 19 146/56 99 Intake and Output 12/25/20 12/25/20 12/25/20 06:59 14:59 22:59 Other: Voiding Method Diaper # Voids 3 # Bowel Movements 0 Weight 58 kg On examination patient is alert and awake, patient is nonverbal. She does make eye contact, and tracks with her eyes. Patient does not follow commands. Patient has constant active dyskinesia of her jaw. It does not go away even after touching the jaw or pressing it upwards. Patient makes unintelligible vocalization with the jaw dyskinesia. Face is symmetric, pupils are round and reactive to light, visual moncada could not be tested. Rest of the cranial nerves could not be tested. Patient has very severe increased tone in bilateral arms and legs, very rigid. Patient has tremors at rest, moderate on the right, mild on the left. Reflexes are diminished and plantars are flat. Patient has peripheral edema. Abdomen appears soft. Chest is clear. Results - Laboratory Findings CBC and BMP: 12/25/20 07:05 12/25/20 07:05 Abnormal Lab Findings: Abnormal Labs 12/14/20 12/14/20 12/14/20 21:42 21:42 21:42 WBC 16.4 H RBC 3.58 L Hgb Hct MCV MCH MCHC RDW Plt Count MPV Absolute Nucleated RBC Neutrophils # 14.4 H Lymphocytes # 0.7 L Eosinophils # NRBC/100 WBC Diff ESR APTT 18.5 L D-Dimer Sodium 135 L Potassium Chloride 97 L Carbon Dioxide Anion Gap BUN 27 H Creatinine 0.50 L BUN/Creatinine Ratio Glucose 158 H POC Glucose (mg/dL) Calcium Magnesium Iron TIBC AST 94 H ALT 40 H Alkaline Phosphatase Creatine Kinase C-Reactive Protein Total Protein Albumin Albumin/Globulin Ratio RBC Folate Procalcitonin Urine Appearance Urine Protein Urine Blood Ur Leukocyte Esterase Urine RBC Urine WBC Urine WBC Clumps Urine Bacteria Urine Mucus 12/14/20 12/15/20 12/15/20 22:10 11:27 17:40 WBC RBC Hgb Hct MCV MCH MCHC RDW Plt Count MPV Absolute Nucleated RBC Neutrophils # Lymphocytes # Eosinophils # NRBC/100 WBC Diff ESR APTT D-Dimer Sodium Potassium Chloride Carbon Dioxide Anion Gap BUN Creatinine BUN/Creatinine Ratio Glucose POC Glucose (mg/dL) 110 H 115 H Calcium Magnesium Iron TIBC AST ALT Alkaline Phosphatase Creatine Kinase C-Reactive Protein Total Protein Albumin Albumin/Globulin Ratio RBC Folate Procalcitonin Urine Appearance Cloudy H Urine Protein 1+ H Urine Blood Small H Ur Leukocyte Esterase Large H Urine RBC 34 H Urine WBC 124 H Urine WBC Clumps Few H Urine Bacteria Rare H Urine Mucus Rare H 12/16/20 12/16/20 12/16/20 00:41 10:22 10:22 WBC RBC 2.54 L Hgb 8.2 L D Hct 25.3 L MCV MCH MCHC RDW Plt Count 134 L MPV Absolute Nucleated RBC Neutrophils # Lymphocytes # 0.4 L Eosinophils # NRBC/100 WBC Diff ESR APTT D-Dimer Sodium Potassium Chloride 108 H Carbon Dioxide Anion Gap BUN 24 H Creatinine 0.43 L BUN/Creatinine Ratio Glucose 111 H POC Glucose (mg/dL) 103 H Calcium 7.5 L Magnesium Iron TIBC AST ALT Alkaline Phosphatase Creatine Kinase C-Reactive Protein Total Protein Albumin Albumin/Globulin Ratio RBC Folate Procalcitonin Urine Appearance Urine Protein Urine Blood Ur Leukocyte Esterase Urine RBC Urine WBC Urine WBC Clumps Urine Bacteria Urine Mucus 12/16/20 12/16/20 12/16/20 11:22 17:13 23:39 WBC RBC Hgb Hct MCV MCH MCHC RDW Plt Count MPV Absolute Nucleated RBC Neutrophils # Lymphocytes # Eosinophils # NRBC/100 WBC Diff ESR APTT D-Dimer Sodium Potassium Chloride Carbon Dioxide Anion Gap BUN Creatinine BUN/Creatinine Ratio Glucose POC Glucose (mg/dL) 109 H 112 H 116 H Calcium Magnesium Iron TIBC AST ALT Alkaline Phosphatase Creatine Kinase C-Reactive Protein Total Protein Albumin Albumin/Globulin Ratio RBC Folate Procalcitonin Urine Appearance Urine Protein Urine Blood Ur Leukocyte Esterase Urine RBC Urine WBC Urine WBC Clumps Urine Bacteria Urine Mucus 12/17/20 12/17/20 12/17/20 05:40 05:58 05:58 WBC RBC 2.68 L Hgb 8.6 L Hct 28.2 L MCV 105.2 H MCH 32.1 H MCHC 30.5 L RDW Plt Count MPV Absolute Nucleated RBC Neutrophils # Lymphocytes # Eosinophils # 0.01 L NRBC/100 WBC Diff ESR APTT D-Dimer Sodium 146 H Potassium Chloride 111 H Carbon Dioxide Anion Gap BUN Creatinine 0.4 L BUN/Creatinine Ratio 67.50 H Glucose 114 H POC Glucose (mg/dL) 127 H Calcium 7.9 L Magnesium Iron TIBC AST 58 H ALT Alkaline Phosphatase Creatine Kinase C-Reactive Protein Total Protein 5.6 L Albumin 3.00 L Albumin/Globulin Ratio 1.15 L RBC Folate Procalcitonin Urine Appearance Urine Protein Urine Blood Ur Leukocyte Esterase Urine RBC Urine WBC Urine WBC Clumps Urine Bacteria Urine Mucus 12/17/20 12/17/20 12/17/20 11:31 17:36 23:56 WBC RBC Hgb Hct MCV MCH MCHC RDW Plt Count MPV Absolute Nucleated RBC Neutrophils # Lymphocytes # Eosinophils # NRBC/100 WBC Diff ESR APTT D-Dimer Sodium Potassium Chloride Carbon Dioxide Anion Gap BUN Creatinine BUN/Creatinine Ratio Glucose POC Glucose (mg/dL) 151 H 135 H 113 H Calcium Magnesium Iron TIBC AST ALT Alkaline Phosphatase Creatine Kinase C-Reactive Protein Total Protein Albumin Albumin/Globulin Ratio RBC Folate Procalcitonin Urine Appearance Urine Protein Urine Blood Ur Leukocyte Esterase Urine RBC Urine WBC Urine WBC Clumps Urine Bacteria Urine Mucus 12/18/20 12/18/20 12/18/20 05:12 05:38 05:38 WBC RBC 2.88 L Hgb 9.3 L Hct 30.3 L MCV 105.2 H MCH 32.3 H MCHC 30.7 L RDW Plt Count MPV 12.3 H Absolute Nucleated RBC Neutrophils # Lymphocytes # Eosinophils # NRBC/100 WBC Diff ESR APTT D-Dimer Sodium 152 H Potassium Chloride 115 H Carbon Dioxide Anion Gap 13.60 H BUN Creatinine 0.5 L BUN/Creatinine Ratio 54.00 H Glucose POC Glucose (mg/dL) 138 H Calcium 7.8 L Magnesium Iron TIBC AST ALT Alkaline Phosphatase Creatine Kinase C-Reactive Protein Total Protein Albumin Albumin/Globulin Ratio RBC Folate Procalcitonin Urine Appearance Urine Protein Urine Blood Ur Leukocyte Esterase Urine RBC Urine WBC Urine WBC Clumps Urine Bacteria Urine Mucus 12/18/20 12/18/20 12/18/20 10:52 11:30 11:30 WBC RBC Hgb Hct MCV MCH MCHC RDW Plt Count MPV Absolute Nucleated RBC Neutrophils # Lymphocytes # Eosinophils # NRBC/100 WBC Diff ESR APTT D-Dimer Sodium Potassium Chloride Carbon Dioxide Anion Gap BUN Creatinine BUN/Creatinine Ratio Glucose POC Glucose (mg/dL) 119 H Calcium Magnesium Iron TIBC AST ALT Alkaline Phosphatase Creatine Kinase C-Reactive Protein 60.6 H Total Protein Albumin Albumin/Globulin Ratio RBC Folate Procalcitonin 0.14 H Urine Appearance Urine Protein Urine Blood Ur Leukocyte Esterase Urine RBC Urine WBC Urine WBC Clumps Urine Bacteria Urine Mucus 12/18/20 12/18/2012/18/21 17:33 17:44 17:44 WBC RBC 2.80 L Hgb 9.0 L Hct 28.0 L MCV MCH MCHC RDW Plt Count MPV Absolute Nucleated RBC Neutrophils # Lymphocytes # 0.9 L Eosinophils # NRBC/100 WBC Diff ESR APTT D-Dimer Sodium 147 H Potassium 3.2 L Chloride 110 H Carbon Dioxide 36 H Anion Gap BUN 22 H Creatinine 0.47 L BUN/Creatinine Ratio Glucose 116 H POC Glucose (mg/dL) 115 H Calcium 7.7 L Magnesium Iron TIBC AST ALT Alkaline Phosphatase Creatine Kinase C-Reactive Protein Total Protein Albumin Albumin/Globulin Ratio RBC Folate Procalcitonin Urine Appearance Urine Protein Urine Blood Ur Leukocyte Esterase Urine RBC Urine WBC Urine WBC Clumps Urine Bacteria Urine Mucus 12/18/20 12/19/20 12/19/20 23:45 05:34 06:32 WBC RBC Hgb Hct MCV MCH MCHC RDW Plt Count MPV Absolute Nucleated RBC Neutrophils # Lymphocytes # Eosinophils # NRBC/100 WBC Diff ESR APTT D-Dimer Sodium Potassium Chloride Carbon Dioxide Anion Gap BUN Creatinine BUN/Creatinine Ratio Glucose POC Glucose (mg/dL) 121 H 112 H Calcium Magnesium Iron TIBC AST ALT Alkaline Phosphatase Creatine Kinase C-Reactive Protein Total Protein Albumin Albumin/Globulin Ratio RBC Folate 1,144 H Procalcitonin Urine Appearance Urine Protein Urine Blood Ur Leukocyte Esterase Urine RBC Urine WBC Urine WBC Clumps Urine Bacteria Urine Mucus 12/19/20 12/19/20 12/19/20 06:32 06:32 11:35 WBC RBC 2.82 L Hgb 9.2 L Hct 30.3 L MCV 107.4 H MCH 32.6 H MCHC 30.4 L RDW Plt Count MPV Absolute Nucleated RBC 0.03 H Neutrophils # Lymphocytes # Eosinophils # NRBC/100 WBC Diff 0.5 H ESR APTT D-Dimer Sodium 153 H Potassium Chloride 114 H Carbon Dioxide Anion Gap 14.80 H BUN Creatinine 0.5 L BUN/Creatinine Ratio 44.00 H Glucose 118 H POC Glucose (mg/dL) 198 H Calcium 7.6 L Magnesium Iron 30 L TIBC 220 L AST ALT Alkaline Phosphatase Creatine Kinase C-Reactive Protein Total Protein Albumin Albumin/Globulin Ratio RBC Folate Procalcitonin Urine Appearance Urine Protein Urine Blood Ur Leukocyte Esterase Urine RBC Urine WBC Urine WBC Clumps Urine Bacteria Urine Mucus 12/19/20 12/19/20 12/19/20 16:47 16:56 23:33 WBC RBC Hgb Hct MCV MCH MCHC RDW Plt Count MPV Absolute Nucleated RBC Neutrophils # Lymphocytes # Eosinophils # NRBC/100 WBC Diff ESR APTT D-Dimer Sodium 146 H Potassium 3.0 L Chloride Carbon Dioxide 38 H Anion Gap BUN 18 H Creatinine 0.44 L BUN/Creatinine Ratio Glucose 119 H POC Glucose (mg/dL) 119 H 135 H Calcium 7.6 L Magnesium Iron TIBC AST ALT Alkaline Phosphatase Creatine Kinase C-Reactive Protein Total Protein Albumin Albumin/Globulin Ratio RBC Folate Procalcitonin Urine Appearance Urine Protein Urine Blood Ur Leukocyte Esterase Urine RBC Urine WBC Urine WBC Clumps Urine Bacteria Urine Mucus 12/20/20 12/20/20 12/20/20 03:50 05:23 05:23 WBC RBC 3.26 L Hgb 10.7 L Hct 33.0 L MCV 101.1 H MCH MCHC RDW Plt Count MPV Absolute Nucleated RBC Neutrophils # Lymphocytes # 0.7 L Eosinophils # NRBC/100 WBC Diff ESR APTT D-Dimer Sodium Potassium 3.4 L Chloride 108 H Carbon Dioxide 33 H Anion Gap BUN 21 H Creatinine 0.44 L BUN/Creatinine Ratio Glucose 119 H POC Glucose (mg/dL) Calcium 7.9 L Magnesium Iron TIBC AST ALT Alkaline Phosphatase Creatine Kinase C-Reactive Protein 26.8 H Total Protein 5.4 L Albumin 2.8 L Albumin/Globulin Ratio RBC Folate Procalcitonin Urine Appearance Urine Protein 1+ H Urine Blood Ur Leukocyte Esterase Urine RBC Urine WBC Urine WBC Clumps Urine Bacteria Urine Mucus 12/20/20 12/20/20 12/20/20 05:23 05:44 11:32 WBC RBC Hgb Hct MCV MCH MCHC RDW Plt Count MPV Absolute Nucleated RBC Neutrophils # Lymphocytes # Eosinophils # NRBC/100 WBC Diff ESR APTT D-Dimer 6.96 H Sodium Potassium Chloride Carbon Dioxide Anion Gap BUN Creatinine BUN/Creatinine Ratio Glucose POC Glucose (mg/dL) 133 H 121 H Calcium Magnesium Iron TIBC AST ALT Alkaline Phosphatase Creatine Kinase C-Reactive Protein Total Protein Albumin Albumin/Globulin Ratio RBC Folate Procalcitonin Urine Appearance Urine Protein Urine Blood Ur Leukocyte Esterase Urine RBC Urine WBC Urine WBC Clumps Urine Bacteria Urine Mucus 12/20/20 12/20/20 12/20/20 16:45 17:20 17:20 WBC RBC 3.34 L Hgb 10.5 L Hct 33.7 L MCV 100.8 H MCH MCHC RDW Plt Count MPV Absolute Nucleated RBC Neutrophils # Lymphocytes # Eosinophils # NRBC/100 WBC Diff ESR APTT D-Dimer Sodium Potassium Chloride 110 H Carbon Dioxide 31 H Anion Gap BUN 20 H Creatinine 0.43 L BUN/Creatinine Ratio Glucose 112 H POC Glucose (mg/dL) 122 H Calcium 7.9 L Magnesium 2.4 H Iron TIBC AST 38 H ALT 35 H Alkaline Phosphatase Creatine Kinase 161 H C-Reactive Protein Total Protein 5.7 L Albumin 3.0 L Albumin/Globulin Ratio RBC Folate Procalcitonin Urine Appearance Urine Protein Urine Blood Ur Leukocyte Esterase Urine RBC Urine WBC Urine WBC Clumps Urine Bacteria Urine Mucus 12/20/20 12/21/20 12/21/20 23:08 05:40 11:17 WBC RBC Hgb Hct MCV MCH MCHC RDW Plt Count MPV Absolute Nucleated RBC Neutrophils # Lymphocytes # Eosinophils # NRBC/100 WBC Diff ESR APTT D-Dimer Sodium Potassium Chloride Carbon Dioxide Anion Gap BUN Creatinine BUN/Creatinine Ratio Glucose POC Glucose (mg/dL) 110 H 112 H 131 H Calcium Magnesium Iron TIBC AST ALT Alkaline Phosphatase Creatine Kinase C-Reactive Protein Total Protein Albumin Albumin/Globulin Ratio RBC Folate Procalcitonin Urine Appearance Urine Protein Urine Blood Ur Leukocyte Esterase Urine RBC Urine WBC Urine WBC Clumps Urine Bacteria Urine Mucus 12/21/20 12/22/20 12/22/20 16:46 01:38 07:06 WBC RBC 2.79 L Hgb 9.0 L Hct 30.0 L MCV 107.5 H MCH 32.3 H MCHC 30.0 L RDW 15.4 H Plt Count MPV Absolute Nucleated RBC Neutrophils # Lymphocytes # Eosinophils # NRBC/100 WBC Diff ESR APTT D-Dimer Sodium Potassium Chloride Carbon Dioxide Anion Gap BUN Creatinine BUN/Creatinine Ratio Glucose POC Glucose (mg/dL) 125 H 108 H Calcium Magnesium Iron TIBC AST ALT Alkaline Phosphatase Creatine Kinase C-Reactive Protein Total Protein Albumin Albumin/Globulin Ratio RBC Folate Procalcitonin Urine Appearance Urine Protein Urine Blood Ur Leukocyte Esterase Urine RBC Urine WBC Urine WBC Clumps Urine Bacteria Urine Mucus 12/22/20 12/22/20 12/22/20 07:06 11:37 15:36 WBC RBC Hgb Hct MCV MCH MCHC RDW Plt Count MPV Absolute Nucleated RBC Neutrophils # Lymphocytes # Eosinophils # NRBC/100 WBC Diff ESR APTT D-Dimer Sodium 151 H 148 H Potassium Chloride 114 H 114 H Carbon Dioxide 33.9 H 31 H Anion Gap 3.10 L BUN 23 H Creatinine 0.5 L 0.43 L BUN/Creatinine Ratio 50.00 H Glucose 116 H 112 H POC Glucose (mg/dL) 120 H Calcium 7.7 L 7.9 L Magnesium Iron TIBC AST ALT Alkaline Phosphatase Creatine Kinase C-Reactive Protein Total Protein 4.9 L Albumin 3.10 L Albumin/Globulin Ratio RBC Folate Procalcitonin Urine Appearance Urine Protein Urine Blood Ur Leukocyte Esterase Urine RBC Urine WBC Urine WBC Clumps Urine Bacteria Urine Mucus 12/22/20 12/22/20 12/22/20 16:49 21:36 21:36 WBC RBC Hgb Hct MCV MCH MCHC RDW Plt Count MPV Absolute Nucleated RBC Neutrophils # Lymphocytes # Eosinophils # NRBC/100 WBC Diff ESR 22 H APTT D-Dimer Sodium Potassium Chloride Carbon Dioxide Anion Gap BUN Creatinine BUN/Creatinine Ratio Glucose POC Glucose (mg/dL) 132 H Calcium Magnesium Iron TIBC AST ALT Alkaline Phosphatase Creatine Kinase C-Reactive Protein 12.3 H Total Protein Albumin Albumin/Globulin Ratio RBC Folate Procalcitonin Urine Appearance Urine Protein Urine Blood Ur Leukocyte Esterase Urine RBC Urine WBC Urine WBC Clumps Urine Bacteria Urine Mucus 12/23/20 12/23/20 12/23/20 00:59 05:38 05:38 WBC RBC 2.98 L Hgb 9.7 L Hct 32.0 L MCV 107.4 H MCH 32.6 H MCHC 30.3 L RDW 15.9 H Plt Count MPV Absolute Nucleated RBC Neutrophils # Lymphocytes # Eosinophils # NRBC/100 WBC Diff ESR APTT D-Dimer Sodium 152 H Potassium Chloride 115 H Carbon Dioxide Anion Gap BUN Creatinine 0.5 L BUN/Creatinine Ratio 54.00 H Glucose 117 H POC Glucose (mg/dL) 123 H Calcium 7.9 L Magnesium Iron TIBC AST 44 H ALT 48 H Alkaline Phosphatase 128 H Creatine Kinase C-Reactive Protein Total Protein 5.2 L Albumin 3.30 L Albumin/Globulin Ratio RBC Folate Procalcitonin Urine Appearance Urine Protein Urine Blood Ur Leukocyte Esterase Urine RBC Urine WBC Urine WBC Clumps Urine Bacteria Urine Mucus 12/23/20 12/23/20 12/23/20 08:50 08:50 11:09 WBC RBC 2.83 L Hgb 9.4 L Hct 29.3 L MCV 103.7 H MCH MCHC RDW Plt Count MPV Absolute Nucleated RBC Neutrophils # Lymphocytes # 0.9 L Eosinophils # NRBC/100 WBC Diff ESR APTT D-Dimer Sodium 149 H Potassium Chloride 114 H Carbon Dioxide Anion Gap BUN 25 H Creatinine 0.45 L BUN/Creatinine Ratio Glucose 126 H POC Glucose (mg/dL) 111 H Calcium 7.7 L Magnesium 2.4 H Iron TIBC AST 46 H ALT 45 H Alkaline Phosphatase Creatine Kinase C-Reactive Protein Total Protein 5.0 L Albumin 2.6 L Albumin/Globulin Ratio RBC Folate Procalcitonin Urine Appearance Urine Protein Urine Blood Ur Leukocyte Esterase Urine RBC Urine WBC Urine WBC Clumps Urine Bacteria Urine Mucus 12/23/20 12/23/20 12/24/20 16:15 16:55 00:21 WBC RBC Hgb Hct MCV MCH MCHC RDW Plt Count MPV Absolute Nucleated RBC Neutrophils # Lymphocytes # Eosinophils # NRBC/100 WBC Diff ESR APTT D-Dimer Sodium 146 H Potassium Chloride 111 H Carbon Dioxide 33 H Anion Gap BUN 24 H Creatinine 0.43 L BUN/Creatinine Ratio Glucose 113 H POC Glucose (mg/dL) 123 H 120 H Calcium 7.9 L Magnesium Iron TIBC AST ALT Alkaline Phosphatase Creatine Kinase C-Reactive Protein Total Protein Albumin Albumin/Globulin Ratio RBC Folate Procalcitonin Urine Appearance Urine Protein Urine Blood Ur Leukocyte Esterase Urine RBC Urine WBC Urine WBC Clumps Urine Bacteria Urine Mucus 12/24/20 12/24/20 12/24/20 05:33 05:33 06:02 WBC RBC 2.69 L Hgb 8.8 L Hct 28.8 L MCV 107.1 H MCH 32.7 H MCHC 30.6 L RDW 16.5 H Plt Count MPV Absolute Nucleated RBC Neutrophils # Lymphocytes # Eosinophils # NRBC/100 WBC Diff ESR APTT D-Dimer Sodium 152 H Potassium Chloride 115 H Carbon Dioxide 32.4 H Anion Gap BUN Creatinine 0.5 L BUN/Creatinine Ratio 50.00 H Glucose POC Glucose (mg/dL) 120 H Calcium 7.9 L Magnesium Iron TIBC AST ALT Alkaline Phosphatase Creatine Kinase C-Reactive Protein Total Protein Albumin Albumin/Globulin Ratio RBC Folate Procalcitonin Urine Appearance Urine Protein Urine Blood Ur Leukocyte Esterase Urine RBC Urine WBC Urine WBC Clumps Urine Bacteria Urine Mucus 12/24/20 12/24/20 12/24/20 11:28 14:57 17:02 WBC RBC Hgb Hct MCV MCH MCHC RDW Plt Count MPV Absolute Nucleated RBC Neutrophils # Lymphocytes # Eosinophils # NRBC/100 WBC Diff ESR APTT D-Dimer Sodium 147 H Potassium Chloride 110 H Carbon Dioxide 34 H Anion Gap BUN 24 H Creatinine 0.45 L BUN/Creatinine Ratio Glucose 115 H POC Glucose (mg/dL) 131 H 141 H Calcium 7.8 L Magnesium Iron TIBC AST ALT Alkaline Phosphatase Creatine Kinase C-Reactive Protein Total Protein Albumin Albumin/Globulin Ratio RBC Folate Procalcitonin Urine Appearance Urine Protein Urine Blood Ur Leukocyte Esterase Urine RBC Urine WBC Urine WBC Clumps Urine Bacteria Urine Mucus 12/25/20 12/25/20 12/25/20 00:04 05:45 07:05 WBC RBC Hgb Hct MCV MCH MCHC RDW Plt Count MPV Absolute Nucleated RBC Neutrophils # Lymphocytes # Eosinophils # NRBC/100 WBC Diff ESR APTT D-Dimer Sodium Potassium Chloride 113 H Carbon Dioxide 31 H Anion Gap BUN 25 H Creatinine 0.47 L BUN/Creatinine Ratio Glucose 114 H POC Glucose (mg/dL) 109 H 115 H Calcium 7.6 L Magnesium Iron TIBC AST ALT Alkaline Phosphatase Creatine Kinase C-Reactive Protein Total Protein Albumin Albumin/Globulin Ratio RBC Folate Procalcitonin Urine Appearance Urine Protein Urine Blood Ur Leukocyte Esterase Urine RBC Urine WBC Urine WBC Clumps Urine Bacteria Urine Mucus 12/25/20 12/25/20 12/25/20 07:05 11:29 16:48 WBC RBC 2.76 L Hgb 8.9 L Hct 29.0 L MCV 105.1 H MCH MCHC 30.9 L RDW 16.0 H Plt Count MPV Absolute Nucleated RBC Neutrophils # Lymphocytes # Eosinophils # NRBC/100 WBC Diff ESR APTT D-Dimer Sodium Potassium Chloride Carbon Dioxide Anion Gap BUN Creatinine BUN/Creatinine Ratio Glucose POC Glucose (mg/dL) 131 H 123 H Calcium Magnesium Iron TIBC AST ALT Alkaline Phosphatase Creatine Kinase C-Reactive Protein Total Protein Albumin Albumin/Globulin Ratio RBC Folate Procalcitonin Urine Appearance Urine Protein Urine Blood Ur Leukocyte Esterase Urine RBC Urine WBC Urine WBC Clumps Urine Bacteria Urine Mucus Assessment and Plan Assessment: * Tardive dyskinesias, versus dystonic jaw tremors * Parkinsonism with parkinsonian tremors, rigidity of the arms and legs. * Developmental delays, mental retardation, nonverbal state * Bilateral anterior dislocation of the shoulders with possible chip fractures of the right humerus, probably chronic in nature. Failed reduction attempt. * Fever, UTI, possible sepsis * Seizure disorder on Keppra. * Dysphagia, status post PEG tube. Plan: * Suggest starting Cogentin 0.5 mg twice a day for extrapyramidal side effect of Risperdal. * Recommend stopping Reglan, as it can produce drug-induced parkinsonism. * Recheck CPK. * Patient may benefit from treatment with Ingrezza or Austedo for possible tardive dysphasia, (if NMS is ruled out, and patient does not respond to above treatment options). * Consider psychiatric consultation.
[2020-12-25] MEDS: LORazepam 1 MG TAB PEG/G-TUBE SCH (21:50)
[2020-12-26] MEDS: HEPARIN SODIUM,PORCINE 5,000 UNIT/ML 1 ML VIAL SQ SCH ×2 (00:49→09:02)
[2020-12-26 01:16] LABS: Glucose,Whole Blood 120 mg/dL (75-99)
--- NOTE | 2020-12-26 01:44 | PN ---
PROGRESS NOTE DATE OF SERVICE: 12/25/2020 REASON FOR FOLLOWUP: Fever. INTERVAL HISTORY: Patient overall fever pattern has improved with Tylenol she is getting around the clock. The patient is hemodynamically stable. No tachycardia. She is breathing comfortably. Tolerating her tube feeds and no worsening diarrhea reported by the nursing staff. PHYSICAL EXAMINATION: Blood pressure 113/65, pulse of 86, temperature 98.4. She is 99% on 2 L nasal cannula. General description is a middle-aged female lying in bed in no distress. Respiratory system: Unlabored breathing, clear to auscultation anteriorly. HEART: S1, S2. Regular rate. ABDOMEN: Soft no tenderness. Bilateral shoulder area did have some bruising, but no definite cellulitis. LABS: Hemoglobin is 8.1, white count 7.1. BUN of 25, creatinine 0.47. DIAGNOSTIC IMPRESSION AND PLAN: Patient with fever could be related to bilateral shoulder area bruising and hematoma, as the patient did have extensive workup and negative for any infectious etiology. There was concern for possible ileus and the patient was given antibiotic to cover for GI enid. However, the culture remains to be negative. Antibiotic may safe to discontinue. Will discuss with the admitting team and continue supportive care. MMODL / IJN: [id number] /
[2020-12-26] MEDS: PIPERACILLIN-TAZOBACTAM 3.375 GM in SODIUM CHLORIDE 0.9% 100 ML IVPB SCH (04:28)
[2020-12-26 05:53] LABS: Glucose,Whole Blood 114 mg/dL (75-99)
[2020-12-26] MEDS: HYDROcodone/APAP 15 ML SOLUTION PO PRN ×3 (06:08→22:46)
[2020-12-26 07:56] LABS: African American GFR (CKD) >90 (>60 ml/min/1.73 sqM); Anion Gap 4 mmol/L; Blood Urea Nitrogen 22 mg/dL (7-17); Calcium 7.5 mg/dL (8.4-10.2); Carbon Dioxide 30 mmol/L (22-30); Chloride 109 mmol/L (98-107); Glucose 119 mg/dL (74-99); Magnesium 2.3 mg/dL (1.6-2.3); Non-African American GFR(CKD) >90 (>60 ml/min/1.73 sqM); Potassium 4.2 mmol/L (3.5-5.1); Sodium 143 mmol/L (137-145)
[2020-12-26] MEDS: ANIDULAFUNGIN 100 MG in SODIUM CHLORIDE 0.9% 100 ML IVPB SCH (09:02)
[2020-12-26] MEDS: polyethylene glycoL 3350 17 GM POWD.PACK PEG/G-TUBE SCH (09:03)
[2020-12-26] MEDS: BENZTROPINE MESYLATE 0.5 MG TAB PO SCH ×2 (09:03→22:48)
[2020-12-26] MEDS: levETIRAcetam ORAL SOLN 500 MG/5 ML CUP PEG/G-TUBE SCH ×2 (09:03→22:48)
[2020-12-26] MEDS: ACETAMINOPHEN TAB 500 MG TAB PEG/G-TUBE SCH ×2 (09:03→22:47)
[2020-12-26] MEDS: AMIODARONE 200 MG TAB PEG/G-TUBE SCH (09:03)
[2020-12-26] MEDS: VALPROIC ACID ORAL SOLN 250 MG/5 ML CUP PEG/G-TUBE SCH ×2 (09:03→22:48)
[2020-12-26] MEDS: risperiDONE 2 MG TAB PEG/G-TUBE SCH (09:03)
--- NOTE | 2020-12-26 11:03 | P.PN ---
Subjective Progress Note Date: 12/26/20 Patient is awake and alert. She is still having repetitive lip smacking movement and making noise. She was seen by neurology yesterday and I started her on Cogentin this morning as directed by neurology. Objective - Vital Signs Vital signs: Vital Signs Temp 99.2 F 12/26/20 07:47 Pulse 79 12/26/20 07:47 Resp 22 12/26/20 07:47 BP 130/78 12/26/20 07:47 Pulse Ox 100 12/26/20 07:47 Intake & Output 12/25/20 12/26/20 12/26/20 18:59 06:59 18:59 Weight 59 kg Other: Voiding Method Diaper Diaper Incontinent Incontinent - Exam General: The patient is awake and alert. She is having repetitive lip smacking and making same noise Eye: there is normal conjunctiva bilaterally. Neck: The neck is supple, there is no JVD. Cardiovascular: Normal S1-S2, no S3-S4, no murmurs. Respiratory: Lungs clear to anterior chest auscultation bilaterally Gastrointestinal: Abdomen is soft, nontender. PEG tube in place Musculoskeletal: There is no pedal edema. Skin: Skin is warm and dry - Labs CBC & Chem 7: 12/25/20 07:05 12/26/20 06:57 Labs: Abnormal Lab Results - Last 24 Hours (Table) 12/25/20 12/25/20 12/26/20 Range/Units 11:29 16:48 01:14 Chloride (98-107) mmol/L BUN (7-17) mg/dL Creatinine (0.52-1.04) mg/dL Glucose (74-99) mg/dL POC Glucose (mg/dL) 131 H 123 H 120 H (75-99) mg/dL Calcium (8.4-10.2) mg/dL 12/26/20 12/26/20 Range/Units 05:52 06:57 Chloride 109 H (98-107) mmol/L BUN 22 H (7-17) mg/dL Creatinine 0.45 L (0.52-1.04) mg/dL Glucose 119 H (74-99) mg/dL POC Glucose (mg/dL) 114 H (75-99) mg/dL Calcium 7.5 L (8.4-10.2) mg/dL Microbiology - Last 24 Hours (Table) 12/22/20 21:36 Blood Culture - Preliminary Blood No Growth after 72 hours Assessment and Plan Assessment: Patient is a 60-year-old female whom resides in an home due to significant developmental delays and is bedbound with upper extremity contractures, lower extremity contractures, and a Peg tube. She has a past medical history of seizure disorders on Keppra and Depakote, tremors on risperidone, a cardiac arrhythmia on amiodarone, hyperlipidemia, a bowel obstruction resulting in colostomy followed by reversal, and history of dysphagia with aspiration pneumonia and is peg tube dependent for meals and medications. She presented to the hospital with reports of fevers status post recent PEG tube replacement at [facility]. Upon arrival to facility, patient was found to be febrile at 101.7F and noted to have significant bruising to her RUE and when the [facility] home was contacted, it was reported that pt had fallen 4 days prior. X-ray bilateral shoulders demonstrating a bilateral anterior dislocation of the humeral heads with a possible chip fracture of the right humerus. Liza waters was initially admitted under general surgery team and bilateral shoulder dislocations were found to be chronic after failing reduction intraoperatively. Pt was then transferred under our services for pyrexia and UTI with sepsis receiving IV antibiotics. Urine cultures were positive for Klebsiella and E. coli. Infectious disease was consulted and changed patient's antibiotics to Invanz and later to zosyn. Patient has continued to be febrile throughout hospitalization with temp elevated as high as 103.0F and is currently 101.4F. Additional tests were completed including Doppler bilateral lower extremities which was negative for DVT. Doppler right upper extremity which was also nega tive for DVT showing small hypoechoic collection measuring 4.2 x 2.2 x 1.3 cm likely to be a small hematoma. CT abdomen and pelvis revealing diffuse anasarca with trace upper abdominal ascites, prominent dependent opacities in the visualized lung bases likely atelectasis vs pneumonia or aspiration, enlargement of liver, a 7 cm long segment of narrowed and circumferentially thickened colon at the hepatic flexure, moderate circumferential bladder wall thickening with a noted 8 mm nodularity along the posterior bladder wall, and a mild superior endplate deformity of L5. CT PE completed negative for pulmonary emboli showing by basilar atelectasis and small left effusion. CT abdomen and pelvis with IV contrast revealing a large bowel ileus. Blood cultures revealing no growth after 144 hours. Assessment and Plan of Care: Pyrexia with normal white count, patient continues to have low-grade fever -Undetermined etiology with no clear source of infection. Atelectasis may be a contributing factor versus central fever. Also bilateral arm hematoma may be a contributing factor -Seen and evaluated by infectious disease. Patient received broad-spectrum antibiotic and antifungal since admission -Plan to discontinue antibiotic and monitor -Chest x-ray with atelectasis -CT PE completed negative for pulmonary emboli showing by basilar atelectasis and small left effusion. -CT abdomen and pelvis with IV contrast revealing a large bowel ileus that resolved clinically. -Blood cultures revealing no growth -C. diff screen negative -Pt received 5 day course of Invanz followed by 5 days of IV Zosyn. She was started on Diflucan then transitioned to Eraxis today -Patient placed on scheduled Tylenol 1000 mg twice daily Developmental delay with underlying seizure disorder and now worsening persistent tics: -Seen and evaluated by neurology. Thought to be tardive dyskinesia versus dystonic jaw tremors - Patient is on Keppra, Depakote, scheduled Ativan, and risperidone -Started on Cogentin 0.5 mg twice daily -Psych consulted for opinion - I ordered Keppra and Depakote levels Hypernatremia, improved -Free water flushes via via peg tube 150 mL/6 hours. Large bowel ileus, resolved -Continue current bowel regimen Klebsiella and E. coli urinary tract infection, present on admission, sepsis on arrival -Had a prolonged course of antibiotic. Macrocytic macrochromic Anemia, stable Chronic bilateral shoulder dislocations and bilateral arms hematoma -Failed reduction intraoperatively as it was noted that these were chronic dislocations. -Symptomatic treatment and pain management. Elevated d-dimer -US BLE negative, US RUE negative for DVT -CT PE completed negative for pulmonary emboli showing by basilar atelectasis and small left effusion. Seizure Disorder -Seizure precautions and aspiration precautions in place -Continue daily medication regimen with Keppra and Depakote. Dysphagia -Continue tube feeds -Surgery replaced Peg tube 12/21/20. Cognitive disability -Will return to [facility] intermediate versus group home upon discharge. -Sister is guardian Bladder calculi or mass -Outpatient follow-up with urology Code Status: Full code with instructions: No mechanical ventilation DVT prophylaxis: Heparin Discussed with: Patient, RN Anticipated discharge: Clinical course to determine, possibly tomorrow. Anticipated discharge place: return to [facility] A total of 45 minutes was spent on the care of this complex patient more than 50% of the time was spent in counseling and care coordination.
[2020-12-26 11:49] LABS: Glucose,Whole Blood 120 mg/dL (75-99)
--- NOTE | 2020-12-26 13:16 | P.PN ---
Subjective Progress Note Date: 12/26/20 CHIEF COMPLAINT: Fever HISTORY OF PRESENT ILLNESS: Patient seen and examined with Dr. madden. Surgical services is following regarding displaced peg tube and colonic ileus. Patient is having bowel movements. Her Reglan was discontinued by medicine service. She is tolerating tube feeds. T-max 100.4 PHYSICAL EXAM: VITAL SIGNS: Reviewed. GENERAL: Well-developed in no acute distress. HEENT: No sclera icterus. Extraocular movements grossly intact. Moist buccal mucosa. Head is atraumatic, normocephalic. ABDOMEN: Soft. Nondistended. Nontender. PEG tube site clean dry and intact NEUROLOGIC: Nonverbal ASSESSMENT: 1. Displaced PEG tube. Patient is status post peg tube exchange with MELISSA PEG tube by Dr. Madden at the bedside. 2. History of dysphagia status post PEG tube placement with Dr. Madden on 11/04/2020 3. Colonic ileus improving PLAN: -Continue tube feedings -Continue supportive care Physician Behavioral Health Tech note has been reviewed by physician. Signing provider agrees with the documented findings, assessment, and plan of care. Objective - Vital Signs Vital signs: Vital Signs Temp 99.2 F 12/26/20 07:47 Pulse 79 12/26/20 07:47 Resp 22 12/26/20 07:47 BP 130/78 12/26/20 07:47 Pulse Ox 100 12/26/20 07:47 Intake & Output 12/25/20 12/26/20 12/26/20 18:59 06:59 18:59 Weight 59 kg Other: Voiding Method Diaper Diaper Incontinent Incontinent - Labs CBC & Chem 7: 12/25/20 07:05 12/26/20 06:57 Labs: Abnormal Lab Results - Last 24 Hours (Table) 12/25/20 12/26/20 12/26/20 Range/Units 16:48 01:14 05:52 Chloride (98-107) mmol/L BUN (7-17) mg/dL Creatinine (0.52-1.04) mg/dL Glucose (74-99) mg/dL POC Glucose (mg/dL) 123 H 120 H 114 H (75-99) mg/dL Calcium (8.4-10.2) mg/dL 12/26/20 12/26/20 Range/Units 06:57 11:40 Chloride 109 H (98-107) mmol/L BUN 22 H (7-17) mg/dL Creatinine 0.45 L (0.52-1.04) mg/dL Glucose 119 H (74-99) mg/dL POC Glucose (mg/dL) 120 H (75-99) mg/dL Calcium 7.5 L (8.4-10.2) mg/dL Microbiology - Last 24 Hours (Table) 12/22/20 21:36 Blood Culture - Preliminary Blood No Growth after 72 hours
[2020-12-26] MEDS: LORazepam 0.5 MG TAB PEG/G-TUBE SCH ×2 (13:38→16:02)
--- NOTE | 2020-12-26 13:46 | P.CN ---
Psychiatric Consult - . Consult date: 12/26/20 Consult:: IDENTIFYING DATA: This patient is a 60-year-old female with significant history of developmental delay, nonverbal state, and a previous history of colostomy for physical obstruction who is presenting to the hospital today for evaluation and treatment of fever. HISTORY OF PRESENT ILLNESS: The patient presented to the hospital 12/14/2020 for evaluation and treatment of fever. The patient has recently had PEG tube displacements and was treated at [facility] twice for this. When she was discharged home, the patient developed a fever and there was concern for aspiration was patient was brought to the hospital for further evaluation and treatment. Patient is bed bound and nonverbal at baseline. The patient is currently being treated for prior exterior and UTI with sepsis and is receiving IV antibiotics. Psychiatry has been consulted for evaluation and management of tardive dyskinesia. The patient has been previously evaluated by the psychiatrist check team for EPS and tardive symptoms in July and August 2020. During this time, the patient has had trials of different antipsychotic medications in order to decrease the severity of her tardive if and EPS symptoms. Review of her chart revealed that the patient was tried on Haldol and even at a lower dose, she continued to display significant symptoms of severe Parkinson's home and other EPS symptoms. Cogentin was also added at this time. The patient was also switched to Invega which also displayed no significant improvement in her EPS symptoms. Currently the patient is on Risperdal. Cogentin has been started by by the medical team for management of these EPS symptoms as directed by neurology. PSYCHIATRIC HISTORY: Patient has a reported history of schizophrenia. She has been on previous trials of Seroquel, lithium, Topamax, Invega, Haldol, and is currently prescribed a regimen of risperidone, Depakote, and Cogentin. She is currently open with [facility] for outpatient treatment. PAST MEDICAL HISTORY: Past Medical History: Asthma, COPD, Hearing Disorder / Deafness, Hyperlipidemia, Pneumonia, Seizure Disorder, Sleep Apnea/CPAP/BIPAP, Syncope, Vascular Disorder Additional Past Medical History / Comment(s): Recent bowel obstruction with colostomy and then reversal 08/02/20, constipation, cognitive delay/mentally challenged, bronchitis, dysphagia/has peg tube to supplement, pt has had previous aspiration pneumonia and staff at [facility] states recently she has been having increased difficulty swallowing and have been utilizing peg tube more, tremors-sister states never determined cause, incontinent or urine and stool, normally walks with assist of one but not lately-too difficult, MELLY with no cpap but was wearing oxygen at 3L/NC until recently-it was dc/d, mild sensorineural bilateral hearing loss, sister states pt has hx of something ?cyst pericardial/R aortic arch, venous insufficiency, sister unsure if pt has ever had a seizure, L arm contractured, bilateral feet hammer toes, anemia, pancytopenia. History of Any Multi-Drug Resistant Organisms: None Reported Past Surgical History: Orthopedic Surgery Additional Past Surgical History / Comment(s): Peg tube, colectomy with ostomy placement, 08/02/20 reversal of colostomy; salvary gland left side removed, fx elbow surgery. Past Anesthesia/Blood Transfusion Reactions: No Reported Reaction Additional Past Anesthesia/Blood Transfusion Reaction / Comment(s): per sister- Karol-no hx of post-op reaction that she is aware of. ALLERGIES: Seroquel, lithium, and topiramate CHEMICAL DEPENDENCY HISTORY: Smoking Status: Never smoker Past Alcohol Use History: None Reported Past Drug Use History: None Reported FAMILY PSYCHIATRIC/SUBSTANCE USE HISTORY: Unable to obtain SOCIAL HISTORY: Unable to obtain. The patient's sister Karol Koch is her legal guardian. ENTAL STATUS EXAM: General Appearance: Patient appears to be stated age is alert, pleasant, and cooperative. Patient appears to have [glo] hyiene and grooming wearing hospital gown with [glo] ey contact. She has a nasal cannula in place. Behavior: Patient is calmly lying in bed without any agitated behavior. Speech: patient is nonverbal. Mood/Affect: unable to assess as the patient is nonverbal. Affect appears somewhat malaised. Suicidality/Homicidality: unable to assess as the patient is nonverbal. Perceptions: unable to assess as the patient is nonverbal. Though content/process: unable to assess as the patient is nonverbal. Memory and concentration: unable to assess as the patient is nonverbal. Judgment and insight: Very poor IMPRESSIONS: Schizophrenia as per history Developmental delay, nonverbal EPS, parkinsonism, Tardive dyskinesia - Likely secondary to long-term use of antipsychotic medications. Other medications may have contributed to the development of tardive include Reglan Fever, UTI, possible sepsis Seizure Disorder PLAN: -At this time patient DOES NOT meet criteria for inpatient psychiatric admission. -Patient DOES NOT have decision making capacity at this time and is unable to reason through and communicate/appreciate the risks, benefits and alternatives to treatment. -Delirium precautions recommended with patient including - avoiding use of narcotics and TECH[employer]OLOGY RESOURCE TE[employer]ER sedatives, limit anticholinergic medications when possible, frequent re-orientation, minimize use of restraints, open window shades during the day and close them at night -Would recommend the following medication changes/additions: Continue Risperidone 2 mg daily for management of agitation/mood. Switching to Clozapine (which may benefit decreasing TD symptoms) at this time is not recommended due to concern for agranulocytosis. Patient already suffers from chronic infections and this would place her at increased risk. Start Amantadine 100 mg by mouth twice daily for tardive dyskinesia, parkinsonism and EPS symptoms. This medication has displayed effectiveness in the literature for management of TD. Other medications to consider that are FDA approved for TD include Ingrezza and Austedo which are currently not on the hospital's formulary. Continue Cogentin 0.5 mg by mouth twice daily for EPS symptoms. 12/26/20 13:21
[2020-12-26 14:20] VITALS: BMI 22.3
--- NOTE | 2020-12-26 14:27 | P.PN ---
Subjective Progress Note Date: 12/26/20 Patient was seen for a follow-up. Patient's start of dyskinesia appears better. Her Parkinsonian tremors also better. Patient has been started on Cogentin 0.5 mg twice a day and Reglan has been discontinued. Also started on amantadine 100 mg twice a day by psychiatry. Objective - Vital Signs Vital signs: Vital Signs Temp 99.2 F 12/26/20 07:47 Pulse 79 12/26/20 07:47 Resp 22 12/26/20 07:47 BP 130/78 12/26/20 07:47 Pulse Ox 100 12/26/20 07:47 Intake & Output 12/25/20 12/26/20 12/26/20 18:59 06:59 18:59 Weight 59 kg 59 kg Other: Voiding Method Diaper Diaper Incontinent Incontinent - Exam Patient's stated he is better. Less resting tremors. Patient appears more comfortable. He continues to be very rigid in the arms and legs. - Labs CBC & Chem 7: 12/25/20 07:05 12/26/20 06:57 Labs: Abnormal Lab Results - Last 24 Hours (Table) 12/25/20 12/26/20 12/26/20 Range/Units 16:48 01:14 05:52 Chloride (98-107) mmol/L BUN (7-17) mg/dL Creatinine (0.52-1.04) mg/dL Glucose (74-99) mg/dL POC Glucose (mg/dL) 123 H 120 H 114 H (75-99) mg/dL Calcium (8.4-10.2) mg/dL 12/26/20 12/26/20 Range/Units 06:57 11:40 Chloride 109 H (98-107) mmol/L BUN 22 H (7-17) mg/dL Creatinine 0.45 L (0.52-1.04) mg/dL Glucose 119 H (74-99) mg/dL POC Glucose (mg/dL) 120 H (75-99) mg/dL Calcium 7.5 L (8.4-10.2) mg/dL Microbiology - Last 24 Hours (Table) 12/22/20 21:36 Blood Culture - Preliminary Blood No Growth after 72 hours Assessment and Plan Assessment: * Tardive dyskinesias, versus dystonic jaw tremors * Parkinsonism with parkinsonian tremors, rigidity of the arms and legs. * Developmental delays, mental retardation, nonverbal state * Bilateral anterior dislocation of the shoulders with possible chip fractures of the right humerus, probably chronic in nature. Failed reduction attempt. * Fever, UTI, possible sepsis * Seizure disorder on Keppra. * Dysphagia, status post PEG tube. Plan: * Continue Cogentin 0.5 mg twice a day for extrapyramidal side effect of Risperdal. * Reglan has been discontinued, as it can produce drug-induced parkinsonism. * Appreciate psychiatry input. Patient started on amantadine 100 mg twice a day. * Patient overall better. * Recheck CPK is normal 78. * Patient may benefit from treatment with Ingrezza or Austedo for possible tardive dysphasia, as outpatient, as it is not available in the hospital formulary. * Neurologically clear.
[2020-12-26 17:05] LABS: Glucose,Whole Blood 137 mg/dL (75-99)
--- NOTE | 2020-12-26 19:47 | PN ---
PROGRESS NOTE DATE OF SERVICE: 12/26/2020 REASON FOR FOLLOWUP: Fever. INTERVAL HISTORY: The patient's overall fever pattern has improved, currently with a T-max of 100.8. The patient is hemodynamically stable. He is breathing comfortably on room air. Tolerating her tube feeds. No worsening diarrhea or other changes reported by the nursing staff. PHYSICAL EXAMINATION: Blood pressure 108/62 with a pulse of 94, temperature 99.6. She is 100% on room air. General description is a middle-aged female lying in bed in no distress. RESPIRATORY SYSTEM: Unlabored breathing. Clear to auscultation anteriorly. HEART: S1, S2. Regular rate and rhythm. ABDOMEN: Soft. No tenderness. LABS: BUN of 22, creatinine 0.45. Cultures remain negative. DIAGNOSTIC IMPRESSION AND PLAN: Patient with a fever, possibly related to the bilateral shoulder area hematoma and bruise, as the patient did have extensive workup and no obvious focus of infection. Antibiotic, antifungal has been discontinued. Patient is monitored closely off antibiotic therapy. Continue with supportive care. MMODL / IJN: [id number] /
[2020-12-26] MEDS: LORazepam 1 MG TAB PEG/G-TUBE SCH (22:47)
[2020-12-27 02:49] LABS: Glucose,Whole Blood 102 mg/dL (75-99)
[2020-12-27 03:26] VITALS: TEMP 98.5
[2020-12-27] MEDS: HYDROcodone/APAP 15 ML SOLUTION PO PRN (05:56)
[2020-12-27 06:08] LABS: Glucose,Whole Blood 116 mg/dL (75-99)
[2020-12-27 07:14] LABS: African American GFR (CKD) >90 (>60 ml/min/1.73 sqM); Anion Gap 4 mmol/L; Blood Urea Nitrogen 23 mg/dL (7-17); Carbon Dioxide 30 mmol/L (22-30); Chloride 107 mmol/L (98-107); Glucose 99 mg/dL (74-99); Non-African American GFR(CKD) >90 (>60 ml/min/1.73 sqM); Potassium 4.2 mmol/L (3.5-5.1); Sodium 141 mmol/L (137-145)
[2020-12-27 07:57] VITALS: BP 105/59; PULSE 72; RESP 18
[2020-12-27] MEDS ORDERED: ENOXAPARIN 40 MG/0.4 ML SYRINGE SQ SCH (09:00)
[2020-12-27] MEDS: VALPROIC ACID ORAL SOLN 250 MG/5 ML CUP PEG/G-TUBE SCH (09:32)
[2020-12-27] MEDS: levETIRAcetam ORAL SOLN 500 MG/5 ML CUP PEG/G-TUBE SCH (09:33)
[2020-12-27] MEDS: BENZTROPINE MESYLATE 0.5 MG TAB PO SCH (09:34)
[2020-12-27] MEDS: ACETAMINOPHEN TAB 500 MG TAB PEG/G-TUBE SCH (09:34)
[2020-12-27] MEDS: AMIODARONE 200 MG TAB PEG/G-TUBE SCH (09:34)
[2020-12-27] MEDS: risperiDONE 2 MG TAB PEG/G-TUBE SCH (09:34)
[2020-12-27] MEDS: polyethylene glycoL 3350 17 GM POWD.PACK PEG/G-TUBE SCH (09:35)
[2020-12-27 11:23] LABS: Glucose,Whole Blood 120 mg/dL (75-99)
--- NOTE | 2020-12-27 11:41 | P.DS ---
Providers Date of admission: 12/14/20 21:27 Expected date of discharge: 12/27/20 Attending physician: Ulices Niño MD Consults: 12/17/20 17:36 Consult Physician Routine Consulting Provider: Charly Chow Consult Reason/Comments: displaced peg tube in second portion of duodenum Do you want consulting provider notified?: Yes 12/17/20 19:58 Consult Physician Urgent Consulting Provider: Evens Kelley Consult Reason/Comments: Sepsis, UTI, PNA Do you want consulting provider notified?: Yes, Notify in am 12/25/20 10:03 Consult Physician Routine Consulting Provider: Vito Lira Consult Reason/Comments: Persistent tics Do you want consulting provider notified?: Yes 12/26/20 10:49 Consult Physician Routine Consulting Provider: Benji Leslie Consult Reason/Comments: Narrative dyskinesia Do you want consulting provider notified?: Yes Primary care physician: Carlitos K [facility] Course: Patient is a 60-year-old female whom resides in an home due to significant developmental delays and is bedbound with upper extremity contractures, lower extremity contractures, and a Peg tube. She has a past medical history of seizure disorders on Keppra and Depakote, tremors on risperidone, a cardiac arrhythmia on amiodarone, hyperlipidemia, a bowel obstruction resulting in colostomy followed by reversal, and history of dysphagia with aspiration pneumonia and is peg tube dependent for meals and medications. She presented to the hospital with reports of fevers status post recent PEG tube replacement at [facility]. Upon arrival to facility, patient was found to be febrile at 101.7F and noted to have significant bruising to her RUE and when the [facility] home was contacted, it was reported that pt had fallen 4 days prior. X-ray bilateral shoulders demonstrating a bilateral anterior dislocation of the humeral heads with a possible chip fracture of the right humerus. Patient was initially admitted under general surgery team and bilateral shoulder dislocations were found to be chronic after failing reduction intraoperatively. Pt was then transferred under our services for pyrexia and UTI with sepsis receiving IV antibiotics. Urine cultures were positive for Klebsiella and E. coli. Infectious disease was consulted and changed patient's antibiotics to Invanz and later to zosyn. Patient has continued to be febrile throughout hospitalization with temp elevated as high as 103.0F and is currently 101.4F. Additional tests were completed including Doppler bilateral lower extremities which was negative for DVT. Doppler right upper extremity which was also negative for DVT showing small hypoechoic collection measuring 4.2 x 2.2 x 1.3 cm likely to be a small hematoma. CT abdomen and pelvis revealing diffuse anasarca with trace upper abdominal ascites, prominent dependent opacities in the visualized lung bases likely atelectasis vs pneumonia or aspiration, enlargement of liver, a 7 cm long segment of narrowed and circumferentially thickened colon at the hepatic flexure, moderate circumferential bladder wall thickening with a noted 8 mm nodularity along the posterior bladder wall, and a mild superior endplate deformity of L5. CT PE completed negative for pulmonary emboli showing by basilar atelectasis and small left effusion. CT abdomen and pelvis with IV contrast revealing a large bowel ileus. Blood cultures revealing no growth after 144 hours. Assessment and Plan of Care: Pyrexia with normal white count, patient continued to spike fevers throughout her hospitalization. She was fever free in the last 24 hours prior to discharge. -Undetermined etiology with no clear source of infection. Atelectasis may be a contributing factor versus central fever. Also bilateral arm hematoma may be a contributing factor -Seen and evaluated by infectious disease. Patient received broad-spectrum antibiotic and antifungal since admission -Plan to discontinue antibiotic and monitor -Chest x-ray with atelectasis -CT PE completed negative for pulmonary emboli showing by basilar atelectasis and small left effusion. -CT abdomen and pelvis with IV contrast revealing a large bowel ileus that res olved clinically. -Blood cultures revealing no growth -C. diff screen negative -Pt received 5 day course of Invanz followed by 5 days of IV Zosyn. She was started on Diflucan then transitioned to Eraxis -Patient placed on scheduled Tylenol 1000 mg twice daily Developmental delay with underlying seizure disorder and now worsening persistent tics: -Seen and evaluated by neurology and psychiatry. Thought to be tardive dyskinesia versus dystonic jaw tremors - Patient is on Keppra, Depakote, scheduled Ativan, and risperidone -Started on Cogentin 0.5 mg twice daily and amantadine -Plan to wean off Keppra over the next 4 weeks Hypernatremia, improved -Free water flushes via via peg tube 150 mL/6 hours. Large bowel ileus, resolved -Continue current bowel regimen Klebsiella and E. coli urinary tract infection, present on admission, sepsis on arrival -Had a prolonged course of antibiotic. Macrocytic macrochromic Anemia, stable Chronic bilateral shoulder dislocations and bilateral arms hematoma -Failed reduction intraoperatively as it was noted that these were chronic dislocations. -Symptomatic treatment and pain management. Elevated d-dimer -US BLE negative, US RUE negative for DVT -CT PE completed negative for pulmonary emboli showing by basilar atelectasis and small left effusion. Seizure Disorder -Seizure precautions and aspiration precautions in place -Continue daily medication regimen with Keppra and Depakote. Dysphagia -Continue tube feeds -Surgery replaced Peg tube 12/21/20. Cognitive disability [facility]. -Sister is guardian Bladder calculi or mass -Outpatient follow-up with urology Patient Condition at Discharge: Poor Plan - Discharge Summary Discharge Rx Participant: Yes New Discharge Prescriptions: New Benztropine Mesylate [Cogentin] 0.5 mg PO BID #60 tab levETIRAcetam ORAL SOLN [Keppra Oral Soln] 250 mg PO BID #100 ml Acetaminophen Tab [Tylenol] 500 mg PEG/G-TUBE Q12H #60 tab amantadine HCL [Amantadine] 100 mg PO BID #60 capsule Continue Amiodarone [Cordarone] 200 mg PEG/G-TUBE DAILY@0700 polyethylene glycoL 3350 [Miralax] 17 gm PEG/G-TUBE DAILY@0700 Saliva Stimulant Agents Comb.3 [Biotene Moisturizing Mouth] 1 spray MUCOUS MEM TID@0700,1700,2100 Valproic Acid Oral Soln [Depakene Syrup] 375 mg PEG/G-TUBE BID@0700,2100 risperiDONE [RisperDAL] 2 mg PEG/G-TUBE DAILY@0700 #10 tab Nutren Renal Liquid 1 can PEG/G-TUBE TID PRN PRN Reason: REFUSES MEALS Magnesium Hydroxide [Milk of Magnesia] 2,400 mg PEG/G-TUBE Q48H PRN PRN Reason: Constipation Ipratropium-Albuterol Nebulize [Duoneb 0.5 mg-3 mg/3 ml Soln] 3 ml INHALATION RT-QID PRN PRN Reason: Shortness Of Breath bisacodyL [Bisacodyl] 10 mg RECTAL DAILY PRN PRN Reason: Constipation Na Phos,M-B/Na Phos,Di-Ba [Fleet Adult] 133 ml RECTAL Q96D PRN PRN Reason: Constipation Reguloid Powder 48.57% 1 tbsp PEG/G-TUBE BID@0700,2100 LORazepam [Ativan] 1 mg PEG/G-TUBE HS@2099 LORazepam [Ativan] 0.5 mg PEG/G-TUBE BID@1200,1600 Hydrophilic Cream [Triad Cream] 1 applic TOPICAL TID@0700,1500,2099 Discontinued levETIRAcetam ORAL SOLN [Keppra Oral Soln] 500 mg PEG/G-TUBE BID@0700,2099 Acetaminophen Tab [Tylenol] 650 mg PEG/G-TUBE Q4H PRN PRN Reason: Pain Discharge Medication List Amiodarone [Cordarone] 200 mg PEG/G-TUBE DAILY@0700 02/12/20 [History] polyethylene glycoL 3350 [Miralax] 17 gm PEG/G-TUBE DAILY@0700 07/19/20 [History] Saliva Stimulant Agents Comb.3 [Biotene Moisturizing Mouth] 1 spray MUCOUS MEM TID@0700,1700,209911/01/20 [History] Valproic Acid Oral Soln [Depakene Syrup] 375 mg PEG/G-TUBE BID@0700,209911/01/20 [History] risperiDONE [RisperDAL] 2 mg PEG/G-TUBE DAILY@0700 #10 tab 11/06/20 [Rx] Hydrophilic Cream [Triad Cream] 1 applic TOPICAL TID@0700,1500,209912/14/20 [History] Ipratropium-Albuterol Nebulize [Duoneb 0.5 mg-3 mg/3 ml Soln] 3 ml INHALATION RT-QID PRN 12/14/20 [History] LORazepam [Ativan] 0.5 mg PEG/G-TUBE BID@1200,1600 12/14/20 [History] LORazepam [Ativan] 1 mg PEG/G-TUBE HS@209912/14/20 [History] Magnesium Hydroxide [Milk of Magnesia] 2,400 mg PEG/G-TUBE Q48H PRN 12/14/20 [History] Na Phos,M-B/Na Phos,Di-Ba [Fleet Adult] 133 ml RECTAL Q96D PRN 12/14/20 [History] Nutren Renal Liquid 1 can PEG/G-TUBE TID PRN 12/14/20 [History] Reguloid Powder 48.57% 1 tbsp PEG/G-TUBE BID@0700,2100 12/14/20 [History] bisacodyL [Bisacodyl] 10 mg RECTAL DAILY PRN 12/14/20 [History] Acetaminophen Tab [Tylenol] 500 mg PEG/G-TUBE Q12H #60 tab 12/27/20 [Rx] Benztropine Mesylate [Cogentin] 0.5 mg PO BID #60 tab 12/27/20 [Rx] amantadine HCL [Amantadine] 100 mg PO BID #60 capsule 12/27/20 [Rx] levETIRAcetam ORAL SOLN [Keppra Oral Soln] 250 mg PO BID #100 ml 12/27/20 [Rx] Follow up Appointment(s)/Referral(s): Carlitos Valenzuela MD [Primary Care Provider] - 1-2 days [facility]idential [facility] [NON-STAFF] - Patient Instructions/Handouts: Shoulder Dislocation (DC), Sepsis (GEN), Ileus (DC) Activity/Diet/Wound Care/Special Instructions: Activity level on discharge: Recommended use of a Donny lift when transferring to wheelchair. Discharge Disposition: TRANSFER TO SNF/ECF
[2020-12-27] MEDS: LORazepam 0.5 MG TAB PEG/G-TUBE SCH (12:34)
--- NOTE | 2020-12-27 13:04 | P.PN ---
Subjective Progress Note Date: 12/27/20 CHIEF COMPLAINT: Fever HISTORY OF PRESENT ILLNESS: Patient seen and examined with Dr. madden. Surgical services is following regarding displaced peg tube and colonic ileus. Patient is having bowel movements. She is tolerating tube feeds. No further fevers PHYSICAL EXAM: VITAL SIGNS: Reviewed. GENERAL: Well-developed in no acute distress. HEENT: No sclera icterus. Extraocular movements grossly intact. Moist buccal mucosa. Head is atraumatic, normocephalic. ABDOMEN: Soft. Nondistended. Nontender. PEG tube site clean dry and intact NEUROLOGIC: Nonverbal ASSESSMENT: 1. Displaced PEG tube. Patient is status post peg tube exchange with MELISSA PEG tube by Dr. Madden at the bedside. 2. History of dysphagia status post PEG tube placement with Dr. Madden on 11/04/2020 3. Colonic ileus improving PLAN: -Continue tube feedings -Continue supportive care -Patient is stable from surgical standpoint for discharge Physician Guard Captain note has been reviewed by physician. Signing provider agrees with the documented findings, assessment, and plan of care. Objective - Vital Signs Vital signs: Vital Signs Temp 98.5 F 12/27/20 07:56 Pulse 72 12/27/20 07:56 Resp 18 12/27/20 07:56 BP 105/59 12/27/20 07:56 Pulse Ox 97 12/27/20 07:56 Intake & Output 12/26/20 12/27/20 12/27/20 18:59 06:59 18:59 Weight 59 kg 57.5 kg Other: Voiding Method Incontinent Diaper Incontinent # Voids 3 # Bowel Movements 1 - Labs CBC & Chem 7: 12/25/20 07:05 12/27/20 05:51 Labs: Abnormal Lab Results - Last 24 Hours (Table) 12/26/20 12/27/20 12/27/20 Range/Units 16:47 02:47 05:51 BUN 23 H (7-17) mg/dL Creatinine 0.43 L (0.52-1.04) mg/dL POC Glucose (mg/dL) 137 H 102 H (75-99) mg/dL Calcium 8.0 L (8.4-10.2) mg/dL 12/27/20 12/27/20 Range/Units 06:05 11:20 BUN (7-17) mg/dL Creatinine (0.52-1.04) mg/dL POC Glucose (mg/dL) 116 H 120 H (75-99) mg/dL Calcium (8.4-10.2) mg/dL Microbiology - Last 24 Hours (Table) 12/22/20 21:36 Blood Culture - Preliminary Blood No Growth after 96 hours
--- NOTE | 2020-12-27 13:10 | P.PN ---
Subjective Progress Note Date: 12/27/20 Patient was seen for a follow-up. Patient's tardive dyskinesia appears better. Her Parkinsonian tremors also better. Patient has been started on Cogentin 0.5 mg twice a day and Reglan has been discontinued. Also started on amantadine 100 mg twice a day by psychiatry. Objective - Vital Signs Vital signs: Vital Signs Temp 98.5 F 12/27/20 07:56 Pulse 72 12/27/20 07:56 Resp 18 12/27/20 07:56 BP 105/59 12/27/20 07:56 Pulse Ox 97 12/27/20 07:56 Intake & Output 12/26/20 12/27/20 12/27/20 18:59 06:59 18:59 Weight 59 kg 57.5 kg Other: Voiding Method Incontinent Diaper Incontinent # Voids 3 # Bowel Movements 1 - Exam Patient's tardive dyskinesia is much better. Less resting tremors. Tone is still moderately increased. Patient is more comfortable. She continues to be very rigid in the arms and legs. - Labs CBC & Chem 7: 12/25/20 07:05 12/27/20 05:51 Labs: Abnormal Lab Results - Last 24 Hours (Table) 12/26/20 12/27/20 12/27/20 Range/Units 16:47 02:47 05:51 BUN 23 H (7-17) mg/dL Creatinine 0.43 L (0.52-1.04) mg/dL POC Glucose (mg/dL) 137 H 102 H (75-99) mg/dL Calcium 8.0 L (8.4-10.2) mg/dL 12/27/20 12/27/20 Range/Units 06:05 11:20 BUN (7-17) mg/dL Creatinine (0.52-1.04) mg/dL POC Glucose (mg/dL) 116 H 120 H (75-99) mg/dL Calcium (8.4-10.2) mg/dL Microbiology - Last 24 Hours (Table) 12/22/20 21:36 Blood Culture - Preliminary Blood No Growth after 96 hours Assessment and Plan Assessment: * Tardive dyskinesias, versus dystonic jaw tremors, improved with current medication regimen including Cogentin, amantadine, and stopping Reglan. * Parkinsonism with parkinsonian tremors, rigidity of the arms and legs. * Developmental delays, mental retardation, nonverbal state * Bilateral anterior dislocation of the shoulders with possible chip fractures of the right humerus, probably chronic in nature. Failed reduction attempt. * Fever, UTI, possible sepsis * Seizure disorder on Keppra. * Dysphagia, status post PEG tube. Plan: * Continue Cogentin 0.5 mg twice a day for extrapyramidal side effect of Risperdal. * Reglan has been discontinued, as it can produce drug-induced parkinsonism. * Appreciate psychiatry input. Patient started on amantadine 100 mg twice a day. * Patient overall better as compared to yesterday. The jaw tremors almost appears to be gone at times. * CPK is normal 78. * Patient never has any reported history of seizures, nothing documented in the past medical history. Suggest weaning off Keppra. Recommended to decrease Keppra to 250 mg twice a day for 2 weeks, then 250 mg once daily for next 2 weeks and then stop. Continue Depakote for now, as it is also a mood stabilizer. * Patient may benefit from treatment with Ingrezza or Austedo for possible tardive dysphasia, as outpatient, as it is not available in the hospital formulary. * Neurologically clear. Discussed with primary physician.
--- NOTE | 2020-12-27 13:50 | PN ---
PROGRESS NOTE DATE OF SERVICE: 12/27/2020 REASON FOR FOLLOWUP: Fever. INTERVAL HISTORY: The patient is currently afebrile. The patient is breathing comfortably. She is hemodynamically stable not on pressor support. Tolerating her tube feeds. No diarrhea, no vomiting or any other changes reported by nursing staff. PHYSICAL EXAMINATION: Blood pressure 105/59, pulse of 72, temperature 98.5. She is 97% on room air. General description is a middle-aged female lying in bed in no distress. RESPIRATORY SYSTEM: Unlabored breathing, clear to auscultation anteriorly. HEART: S1, S2. Regular rate and rhythm. ABDOMEN: Soft, no tenderness. LABS: BUN of 23, creatinine 0.43. DIAGNOSTIC IMPRESSION AND PLAN: Patient with a fever possible drug fever versus related to her hematoma and bruise as the patient did have extensive workup and no obvious focus of infection. Culture has been negative. Patient currently off antibiotic therapy. No need for antibiotic on discharge. MMODL / IJN: [id number] /
== END 2020-12-27 15:02 | disposition home health service (06) | DRG 871 ==
LOC: EC 20:10 → 4SSUR 21:27
PROVIDERS: ADMIT Internal Medicine; ATTEND Internal Medicine
PROC: 0RSKXZZ Reposition Left Shoulder Joint, External Approach (ICD-10-PCS; 2020-12-15)
PROC: 0RSJXZZ Reposition Right Shoulder Joint, External Approach (ICD-10-PCS; 2020-12-15)
PROC: 3E0G76Z Introduction of Nutritional Substance into Upper GI, Via Natural or Artificial Opening (ICD-10-PCS; 2020-12-16)
PROC: 0D20XUZ Change Feeding Device in Upper Intestinal Tract, External Approach (ICD-10-PCS; 2020-12-19)
PROC: 05HF33Z Insertion of Infusion Device into Left Cephalic Vein, Percutaneous Approach (ICD-10-PCS; principal; 2020-12-20 10:25)
DX: A41.51 Sepsis due to Escherichia coli [E. coli] (principal); J18.9 Pneumonia, unspecified organism; S42.251A Displaced fracture of greater tuberosity of right humerus, initial encounter for closed fracture; N39.0 Urinary tract infection, site not specified; J98.11 Atelectasis; J44.0 Chronic obstructive pulmonary disease with (acute) lower respiratory infection; K94.23 Gastrostomy malfunction; E87.0 Hyperosmolality and hypernatremia; K56.7 Ileus, unspecified; J90 Pleural effusion, not elsewhere classified; G20 Parkinson's disease; F20.9 Schizophrenia, unspecified; G40.909 Epilepsy, unspecified, not intractable, without status epilepticus; Z20.822 Contact with and (suspected) exposure to COVID-19; R62.50 Unspecified lack of expected normal physiological development in childhood; E78.5 Hyperlipidemia, unspecified; H90.5 Unspecified sensorineural hearing loss; R13.10 Dysphagia, unspecified; I87.2 Venous insufficiency (chronic) (peripheral); R15.9 Full incontinence of feces; R32 Unspecified urinary incontinence; G47.33 Obstructive sleep apnea (adult) (pediatric); M20.42 Other hammer toe(s) (acquired), left foot; M20.41 Other hammer toe(s) (acquired), right foot; F32.9 Major depressive disorder, single episode, unspecified; R73.9 Hyperglycemia, unspecified; G24.01 Drug induced subacute dyskinesia; D64.9 Anemia, unspecified; S40.021A Contusion of right upper arm, initial encounter; N21.0 Calculus in bladder; R55 Syncope and collapse; M62.50 Muscle wasting and atrophy, not elsewhere classified, unspecified site; M24.411 Recurrent dislocation, right shoulder; M24.412 Recurrent dislocation, left shoulder; F70 Mild intellectual disabilities; S40.011A Contusion of right shoulder, initial encounter; W05.0XXA Fall from non-moving wheelchair, initial encounter; Z74.01 Bed confinement status; Z79.899 Other long term (current) drug therapy; Z87.19 Personal history of other diseases of the digestive system; Z87.01 Personal history of pneumonia (recurrent); Z90.49 Acquired absence of other specified parts of digestive tract; Z98.890 Other specified postprocedural states; Z87.81 Personal history of (healed) traumatic fracture; Z88.8 Allergy status to other drugs, medicaments and biological substances; Z82.49 Family history of ischemic heart disease and other diseases of the circulatory system; Z83.3 Family history of diabetes mellitus
CPT/HCPCS: 36410; 36415; 71045; 71275; 74176; 74177; 76937; 80048; 80053; 80074; 80164; 80177; 81001; 82550; 82607; 82728; 82747; 83036; 83540; 83550; 83605; 83735; 84145; 84443; 85025; 85027; 85379; 85610; 85652; 85730; 86140; 87040; 87077; 87086; 87186; 87324; 87502; 87635; 93005; 93970; 94760; 96361; 96365; 96375; 99285

== ENCOUNTER 2021-03-12 01:34 | Inpatient (IN) | payer MEDICARE, OTHER ==
--- NOTE | 2021-03-12 02:47 | ED ---
Abdominal Pain HPI - General Chief Complaint: Abdominal Pain Stated Complaint: Bowel obstruction Time Seen by Provider: 03/12/21 01:37 Source: EMS Mode of arrival: EMS Limitations: physical limitation - History of Present Illness Initial Comments: This patient is a 60-year-old woman who is transferred here from [facility] for large bowel obstruction. The patient had reportedly been transferred there in the evening after staff noticed that her abdomen was distended and there are also reportedly an episode of vomiting. The patient is not able to give any additional history. She does reportedly live at an [facility] home and does have history of developmental disability. The patient had workup at the other facility including labs that showed leukocytosis of 14,000. She had computed tomography scan that reportedly showed large bowel obstruction possibly related to twisting or volvulus versus anastomotic stricture. MD Complaint: other -: unknown - Related Data Home Medications Medication Instructions Recorded Confirmed Amiodarone [Cordarone] 200 mg PEG/G-TUBE DAILY@0700 02/12/20 12/14/20 polyethylene glycoL 3350 [Miralax] 17 gm PEG/G-TUBE DAILY@0700 07/19/20 12/14/20 Saliva Stimulant Agents Comb.3 1 spray MUCOUS MEM 11/01/20 12/14/20 [Biotene Moisturizing Mouth] TID@0700,1700,2100 Valproic Acid Oral Soln [Depakene 375 mg PEG/G-TUBE BID@0700,2100 11/01/20 12/14/20 Syrup] Hydrophilic Cream [Triad Cream] 1 applic TOPICAL TID@0700,1500,2100 12/14/20 12/14/20 Ipratropium-Albuterol Nebulize 3 ml INHALATION RT-QID PRN 12/14/20 12/14/20 [Duoneb 0.5 mg-3 mg/3 ml Soln] LORazepam [Ativan] 0.5 mg PEG/G-TUBE BID@1200,1600 12/14/20 12/14/20 LORazepam [Ativan] 1 mg PEG/G-TUBE HS@2100 12/14/20 12/14/20 Magnesium Hydroxide [Milk of 2,400 mg PEG/G-TUBE Q48H PRN 12/14/20 12/14/20 Magnesia] Na Phos,M-B/Na Phos,Di-Ba [Fleet 133 ml RECTAL Q96D PRN 12/14/20 12/14/20 Adult] Nutren Renal Liquid 1 can PEG/G-TUBE TID PRN 12/14/20 12/14/20 Reguloid Powder 48.57% 1 tbsp PEG/G-TUBE BID@0700,2100 12/14/20 12/14/20 bisacodyL [Bisacodyl] 10 mg RECTAL DAILY PRN 12/14/20 12/14/20 Previous Rx's Medication Instructions Recorded risperiDONE [RisperDAL] 2 mg PEG/G-TUBE DAILY@0700 #10 tab 11/06/20 Acetaminophen Tab [Tylenol] 500 mg PEG/G-TUBE Q12H #60 tab 12/27/20 Benztropine Mesylate [Cogentin] 0.5 mg PO BID #60 tab 12/27/20 amantadine HCL [Amantadine] 100 mg PO BID #60 capsule 12/27/20 levETIRAcetam ORAL SOLN [Keppra 250 mg PO BID #100 ml 12/27/20 Oral Soln] Allergies Allergy/AdvReac Type Severity Reaction Status Date / Time quetiapine Allergy Unknown Unknown Verified 12/14/20 23:36 lithium Allergy Unknown Verified 12/14/20 23:36 topiramate [From Topamax] Allergy Unknown Verified 12/14/20 23:36 Review of Systems ROS Statement: Those systems with pertinent positive or pertinent negative responses have been documented in the HPI. ROS Other: All systems not noted in ROS Statement are negative. Limitations: ROS unobtainable due to patients medical condition Past Medical History Past Medical History: Asthma, COPD, Hearing Disorder / Deafness, Hyperlipidemia, Pneumonia, Seizure Disorder, Sleep Apnea/CPAP/BIPAP, Syncope, Vascular Disorder Additional Past Medical History / Comment(s): Recent bowel obstruction with colostomy and then reversal 08/02/20, constipation, cognitive delay/mentally challenged, bronchitis, dysphagia/has peg tube to supplement, pt has had previous aspiration pneumonia and staff at senior living states recently she has been having increased difficulty swallowing and have been utilizing peg tube more, tremors-sister states never determined cause, incontinent or urine and stool, normally walks with assist of one but not lately-too difficult, MELLY with no cpap but was wearing oxygen at 3L/NC until recently-it was dc/d, mild sensori neural bilateral hearing loss, sister states pt has hx of something ?cyst pericardial/R aortic arch, venous insufficiency, sister unsure if pt has ever had a seizure, L arm contractured, bilateral feet hammer toes, anemia, pancytopenia. History of Any Multi-Drug Resistant Organisms: None Reported Past Surgical History: Orthopedic Surgery Additional Past Surgical History / Comment(s): Peg tube, colectomy with ostomy placement, 08/02/20 reversal of colostomy; salvary gland left side removed, fx elbow surgery. Past Anesthesia/Blood Transfusion Reactions: No Reported Reaction Additional Past Anesthesia/Blood Transfusion Reaction / Comment(s): per [id number] hx of post-op reaction that she is aware of. Past Psychological History: Bipolar, Depression, Schizophrenia Smoking Status: Never smoker Past Alcohol Use History: None Reported Past Drug Use History: None Reported - Past Family History Mother Family Medical History: Vascular Disorder Additional Family Medical History / Comment(s): Mother of a ruptured brain aneurysm in her 50s. Father Family Medical History: Coronary Artery Disease (CAD), Diabetes Mellitus Additional Family Medical History / Comment(s): Father lived to be 92 yrs old. He had CABG General Exam General appearance: alert Head exam: Present: atraumatic Eye exam: Present: normal appearance. Absent: scleral icterus, conjunctival injection ENT exam: Present: mucous membranes dry Neck exam: Present: full ROM. Absent: tenderness Respiratory exam: Present: rales. Absent: respiratory distress, wheezes, rhonchi, stridor, accessory muscle use Cardiovascular Exam: Present: normal rhythm, tachycardia, normal heart sounds. Absent: systolic murmur, diastolic murmur, rubs, gallop GI/Abdominal exam: Present: distended, tenderness. Absent: rebound, rigid, mass, pulsatile mass, hernia Extremities exam: Present: normal capillary refill, other (Lower extremity contractures.). Absent: pedal edema, calf tenderness Back exam: Present: normal inspection Neurological exam: Present: alert, other (Patient not able to cooperate with neurologic exam) Skin exam: Present: warm, dry, intact, normal color. Absent: rash Course Vital Signs 03/12/21 01:38 Temperature 101.2 F H Pulse Rate 112 H Respiratory 19 Rate Blood Pressure 157/100 O2 Sat by Pulse 93 L Oximetry Medical Decision Making - Lab Data Result diagrams: 03/12/21 02:37 03/12/21 02:37 Lab Results 03/12/21 03/12/21 03/12/21 Range/Units 02:37 02:37 02:37 WBC 14.5 H (3.8-10.6) k/uL RBC 3.93 (3.80-5.40) m/uL Hgb 13.0 (11.4-16.0) gm/dL Hct 38.5 (34.0-46.0) % MCV 97.9 (80.0-100.0) fL MCH 33.1 (25.0-35.0) pg MCHC 33.8 (31.0-37.0) g/dL RDW 13.8 (11.5-15.5) % Plt Count 216 (150-450) k/uL MPV 7.8 Neutrophils % 90 % Lymphocytes % 3 % Monocytes % 6 % Eosinophils % 0 % Basophils % 0 % Neutrophils # 13.1 H (1.3-7.7) k/uL Lymphocytes # 0.5 L (1.0-4.8) k/uL Monocytes # 0.8 (0-1.0) k/uL Eosinophils # 0.0 (0-0.7) k/uL Basophils # 0.0 (0-0.2) k/uL Sodium 140 (137-145) mmol/L Potassium 3.6 (3.5-5.1) mmol/L Chloride 102 (98-107) mmol/L Carbon Dioxide 27 (22-30) mmol/L Anion Gap 11 mmol/L BUN 25 H (7-17) mg/dL Creatinine 0.52 (0.52-1.04) mg/dL Est GFR (CKD-EPI)AfAm >90 (>60 ml/min/1.73 sqM) Est GFR (CKD-EPI)NonAf >90 (>60 ml/min/1.73 sqM) Glucose 155 H (74-99) mg/dL Plasma Lactic Acid Dinesh 1.3 (0.7-2.0) mmol/L Calcium 8.9 (8.4-10.2) mg/dL Total Bilirubin 0.5 (0.2-1.3) mg/dL AST 19 (14-36) U/L ALT 12 (4-34) U/L Alkaline Phosphatase 235 H (38-126) U/L Total Protein 6.8 (6.3-8.2) g/dL Albumin 3.8 (3.5-5.0) g/dL Disposition Clinical Impression: Bowel obstruction, COVID-19 Disposition: ADMITTED IP TO THIS [facility] Condition: Serious Referrals: Carlitos Valenzuela MD [Primary Care Provider] - 1-2 days
[2021-03-12 02:52] LABS: Basophils % (A) 0 %; Eosinophils % (A) 0 %; HCT 38.5 % (34.0-46.0); Lymphocytes # (A) 0.5 k/uL (1.0-4.8); Lymphocytes % (A) 3 %; MCH 33.1 pg (25.0-35.0); MCHC 33.8 g/dL (31.0-37.0); MCV 97.9 fL (80.0-100.0); Mean Platelet Volume 7.8; Monocytes # (A) 0.8 k/uL (0-1.0); Monocytes % (A) 6 %; Neutrophils # (A) 13.1 k/uL (1.3-7.7); Neutrophils % (A) 90 %; Platelet Count 216 k/uL (150-450); RBC 3.93 m/uL (3.80-5.40); RDW 13.8 % (11.5-15.5); WBC 14.5 k/uL (3.8-10.6)
[2021-03-12 03:02] LABS: ALT 12 U/L (4-34); AST 19 U/L (14-36); African American GFR (CKD) >90 (>60 ml/min/1.73 sqM); Albumin 3.8 g/dL (3.5-5.0); Alkaline Phosphatase 235 U/L (38-126); Anion Gap 11 mmol/L; Blood Urea Nitrogen 25 mg/dL (7-17); Calcium 8.9 mg/dL (8.4-10.2); Carbon Dioxide 27 mmol/L (22-30); Chloride 102 mmol/L (98-107); Glucose 155 mg/dL (74-99); Non-African American GFR(CKD) >90 (>60 ml/min/1.73 sqM); Potassium 3.6 mmol/L (3.5-5.1); Sodium 140 mmol/L (137-145); Total Bilirubin 0.5 mg/dL (0.2-1.3); Total Protein 6.8 g/dL (6.3-8.2)
--- NOTE | 2021-03-12 03:13 | XR ---
EXAM: XR Chest, 1 View CLINICAL HISTORY: ITS.REASON XR Reason: NG placement TECHNIQUE: Frontal view of the chest. COMPARISON: March 11, 2021 FINDINGS: Lungs: No acute airspace infiltrate is identified. Pleural space: Unremarkable. No pneumothorax. Heart: Unremarkable. No cardiomegaly. Mediastinum: Unremarkable. Bones/joints: Heterogenous calcification is associated with chronic bilateral shoulder dislocations. Mild osteophytosis throughout the thoracic spine. Tubes, lines and devices: There is an NG tube extending into the stomach. Stomach is decompressed. There is partial visualization of multiple dilated gas-filled bowel loops in the upper abdomen. IMPRESSION: There is an NG tube extending into the stomach. Stomach is decompressed. There is partial visualization of multiple dilated gas- filled bowel loops in the upper abdomen.
[2021-03-12] MEDS ORDERED: NALOXONE 0.4 MG/ML 1 ML VIAL IV PRN (03:34)
[2021-03-12] MEDS ORDERED: ONDANSETRON 4 MG/2 ML VIAL IVP PRN (03:34)
--- NOTE | 2021-03-12 03:43 | P.HPIM ---
History of Present Illness H&P Date: 03/12/21 The patient is a 60-year-old female with a PMH of developmental delay, seizure disorder, hyperlipidemia, and COPD resident of adult foster care who was sent in from [facility] where she had presented earlier today for abdominal distention. History obtained from the emergency room physician and chart since patient nonverbal at baseline. The staff at the foster care facility had noted that the patient's abdomen appeared to be distended and that she had an episode of vomiting. The patient has an extensive abdominal surgical history, currently with a PEG tube and having undergone colectomies with colostomy placements and subsequent reversal. At [facility], the patient underwent a CT abdomen and pelvis with contrast which revealed a high-grade large bowel obstruction. Laboratory evaluation at [facility] was reviewed and was remarkable for WBC count of 14.0, hemogram 13.1, platelets 244, sodium 139, potassium 5.1, chloride 102, CO2 30, BUN 25, creatinine 0.4, glucose 155, alk phos 195, ALT 20, AST 68, total bilirubin 1.8, and lipase 20. The case was discussed by the emergency room physician with the general surgeon economic history teacher who recommended admission to medicine with surgery on consult. Review of systems: Unable to obtain Physical examination: General: Chronically ill appearing F Derm: no unusual rashes/lesions no unusual ecchymoses, warm, dry Head: atraumatic, normocephalic, symmetric Eyes: EOMI, no lid lag, anicteric sclera, pupils equal round reactive to light ENT: Nose and ears atraumatic, poor dentition, NGT in place draining coffee ground and brown material Neck: No thyromegaly, no cervical lymphadenopathy, trachea midline, supple Mouth: no lip lesion, mucus membranes dry Cardiovascular: S1S2 reg, no murmur, positive posterior tibial pulse bilateral, no edema, capillary refill less than 2 seconds Lungs: CTA bilateral, no rhonchi, no rales , no accessory muscle use Abdominal: Distended, no guarding, patient not grimacing upon palpation Ext: Diffuse upper and lower extremity contractures noted, particulary at the wrists and ankles, unable to assess strength as patient not following commands Neuro: Makes eye contact, not following any commands, non-verbal Psych: Unable to assess Assessment/plan High-grade large bowel obstruction -Surgery consulted -Continue with NG tube with suction for now -Nothing by mouth -C/w Unasyn -C/w IVFs and Protonix -Pain control Chronic conditions: Seizure disorder, COPD, developmental delay -Continue home medications DVT prophylaxis -Heparin subq The patient is admitted with an anticipated greater than 2 midnight stay for evaluation of Large bowel obstruction. CODE STATUS: Full Code Discussed with: ED RN Anticipated discharge date: 3-[address]: [facility] A total of 35 minutes was spent on the care of this complex patient more than 50% of the time was spent in counseling and care coordination. Past Medical History Past Medical History: Asthma, COPD, Hearing Disorder / Deafness, Hyperlipidemia, Pneumonia, Seizure Disorder, Sleep Apnea/CPAP/BIPAP, Syncope, Vascular Disorder Additional Past Medical History / Comment(s): Recent bowel obstruction with colostomy and then reversal 08/02/20, constipation, cognitive delay/mentally challenged, bronchitis, dysphagia/has peg tube to supplement, pt has had p revious aspiration pneumonia [facility] she has been having increased difficulty swallowing and have been utilizing peg tube more, tremors-sister states never determined cause, incontinent or urine and stool, normally walks with assist of one but not lately-too difficult, MELLY with no cpap but was wearing oxygen at 3L/NC until recently-it was dc/d, mild sensorineural bilateral hearing loss, sister states pt has hx of something ?cyst pericardial/R aortic arch, venous insufficiency, sister unsure if pt has ever had a seizure, L arm contractured, bilateral feet hammer toes, anemia, pancytopenia. History of Any Multi-Drug Resistant Organisms: None Reported Past Surgical History: Orthopedic Surgery Additional Past Surgical History / Comment(s): Peg tube, colectomy with ostomy placement, 08/02/20 reversal of colostomy; salvary gland left side removed, fx elbow surgery. Past Anesthesia/Blood Transfusion Reactions: No Reported Reaction Additional Past Anesthesia/Blood Transfusion Reaction / Comment(s): per [id number] hx of post-op reaction that she is aware of. Past Psychological History: Bipolar, Depression, Schizophrenia Smoking Status: Never smoker Past Alcohol Use History: None Reported Past Drug Use History: None Reported - Past Family History Mother Family Medical History: Vascular Disorder Additional Family Medical History / Comment(s): Mother of a ruptured brain aneurysm in her 50s. Father Family Medical History: Coronary Artery Disease (CAD), Diabetes Mellitus Additional Family Medical History / Comment(s): Father lived to be 92 yrs old. He had CABG Medications and Allergies Home Medications Medication Instructions Recorded Confirmed Type Amiodarone [Cordarone] 200 mg PEG/G-TUBE DAILY@0700 02/12/20 12/14/20 History polyethylene glycoL 3350 [Miralax] 17 gm PEG/G-TUBE DAILY@0700 07/19/20 12/14/20 History Saliva Stimulant Agents Comb.3 1 spray MUCOUS MEM 11/01/20 12/14/20 History [Biotene Moisturizing Mouth] TID@0700,1700,2100 Valproic Acid Oral Soln [Depakene 375 mg PEG/G-TUBE BID@0700,209911/01/2011/19 History Syrup] risperiDONE [RisperDAL] 2 mg PEG/G-TUBE DAILY@0700 #10 tab 11/06/20 12/14/20 Rx Hydrophilic Cream [Triad Cream] 1 applic TOPICAL TID@0700,1500,209912/14/20 12/14/20 History Ipratropium-Albuterol Nebulize 3 ml INHALATION RT-QID PRN 12/14/20 12/14/20 History [Duoneb 0.5 mg-3 mg/3 ml Soln] LORazepam [Ativan] 0.5 mg PEG/G-TUBE BID@1200,1600 12/14/20 12/14/20 History LORazepam [Ativan] 1 mg PEG/G-TUBE HS@209912/14/20 12/14/20 History Magnesium Hydroxide [Milk of 2,400 mg PEG/G-TUBE Q48H PRN 12/14/20 12/14/20 History Magnesia] Na Phos,M-B/Na Phos,Di-Ba [Fleet 133 ml RECTAL Q96D PRN 12/14/20 12/14/20 History Adult] Nutren Renal Liquid 1 can PEG/G-TUBE TID PRN 12/14/20 12/14/20 History Reguloid Powder 48.57% 1 tbsp PEG/G-TUBE BID@0700,2100 12/14/20 12/14/20 History bisacodyL [Bisacodyl] 10 mg RECTAL DAILY PRN 12/14/20 12/14/20 History Acetaminophen Tab [Tylenol] 500 mg PEG/G-TUBE Q12H #60 tab 12/27/20 Rx Benztropine Mesylate [Cogentin] 0.5 mg PO BID #60 tab 12/27/20 Rx amantadine HCL [Amantadine] 100 mg PO BID #60 capsule 12/27/20 Rx levETIRAcetam ORAL SOLN [Keppra 250 mg PO BID #100 ml 12/27/20 Rx Oral Soln] Allergies Allergy/AdvReac Type Severity Reaction Status Date / Time quetiapine Allergy Unknown Unknown Verified 12/14/20 23:36 lithium Allergy Unknown Verified 12/14/20 23:36 topiramate [From Topamax] Allergy Unknown Verified 12/14/20 23:36 Physical Exam Vitals: Vital Signs Temp Pulse Resp BP Pulse Ox 03/12/21 01:38 101.2 F H 112 H 19 157/100 93 L Intake and Output 03/11/21 03/11/21 03/12/21 14:59 22:59 06:59 Other: Weight 72.575 kg Results CBC & Chem 7: 03/12/21 02:37 03/12/21 02:37 Labs: Abnormal Lab Results - Last 24 Hours (Table) 03/12/21 03/12/21 Range/Units 02:37 02:37 WBC 14.5 H (3.8-10.6) k/uL Neutrophils # 13.1 H (1.3-7.7) k/uL Lymphocytes # 0.5 L (1.0-4.8) k/uL BUN 25 H (7-17) mg/dL Glucose 155 H (74-99) mg/dL Alkaline Phosphatase 235 H (38-126) U/L
[2021-03-12] MEDS ORDERED: AMPICILLIN-SULBACTAM 3 GM in SODIUM CHLORIDE 0.9% 100 ML IVPB SCH (04:00)
[2021-03-12] MEDS: MORPHINE SULFATE 4 MG/ML SYRINGE IV PRN ×3 (05:47→16:21)
[2021-03-12] MEDS: SODIUM CHLORIDE 0.9% 1,000 ML IV SCH ×2 (05:50→09:10)
[2021-03-12] MEDS: AMPICILLIN-SULBACTAM 3 GM in SODIUM CHLORIDE 0.9% 100 ML IVPB SCH ×3 (05:50→21:16)
[2021-03-12] MEDS: HEPARIN SODIUM,PORCINE/PF 5,000 UNIT/0.5 ML SYRINGE SQ SCH ×2 (08:50→16:19)
[2021-03-12] MEDS: PANTOPRAZOLE 40 MG/10 ML VIAL IV SCH (08:51)
[2021-03-12] MEDS ORDERED: IPRATROPIUM-ALBUTEROL 3 ML NEB INHALATION PRN (11:45)
[2021-03-12] MEDS ORDERED: MAGNESIUM HYDROXIDE 2,400 MG/10 ML CUP PEG/G-TUBE PRN (11:45)
--- NOTE | 2021-03-12 13:27 | P.PN ---
Subjective Progress Note Date: 03/12/21 Patient was seen and evaluated by me in the ER. She was sleepy when I saw her. I noticed that her lungs are very wet and has gurgly sounds. I was able to wake up the patient easily. After she woke up she started the moaning. She is nonverbal at baseline. Nursing staff informed me that there is much output in the NG tube since this morning. Objective - Vital Signs Vital signs: Vital Signs Temp 100.1 F H 03/12/21 05:58 Pulse 96 03/12/21 12:45 Resp 18 03/12/21 12:45 BP 138/78 03/12/21 12:45 Pulse Ox 90 L 03/12/21 12:45 Intake & Output 03/11/21 03/12/21 03/12/21 18:59 06:59 18:59 Weight 72.575 kg 72.575 kg - Exam General: The patient is awake and alert, in no distress Eye: there is normal conjunctiva bilaterally. Neck: The neck is supple, there is no JVD. Cardiovascular: Normal S1-S2, no S3-S4, no murmurs. Respiratory: Lungs with diffuse rhonchi and rales all over the chest Gastrointestinal: Abdomen is very distended with moderate tenderness to palpation. PEG tube in place. Musculoskeletal: There is no pedal edema. . Skin: Skin is warm and dry - Labs CBC & Chem 7: 03/12/21 02:37 03/12/21 02:37 Labs: Abnormal Lab Results - Last 24 Hours (Table) 03/12/21 03/12/21 Range/Units 02:37 02:37 WBC 14.5 H (3.8-10.6) k/uL Neutrophils # 13.1 H (1.3-7.7) k/uL Lymphocytes # 0.5 L (1.0-4.8) k/uL BUN 25 H (7-17) mg/dL Glucose 155 H (74-99) mg/dL Alkaline Phosphatase 235 H (38-126) U/L Assessment and Plan Assessment: This is a 60-year-old female with past medical history noted below significant for developmental delay chronically nonverbal that presented to the emergency room as a transfer from outside hospital for further evaluation of bowel obstruction. 1. Large bowel obstruction: Noted on computed tomography scan of the abdomen and pelvis done at outside hospital. Gen. surgery consulted. Plan for OR today. NG tube to intermittent suctioning. Continue nothing by mouth. Periodic antibiotic with IV Unasyn. 2. COPD exacerbation, with possible fluid overload. I would change duo nebs to every 6 hours scheduled. Obtain chest x-ray for further evaluation. X-ray this morning showed clear lung moncada. Discontinue IV fluid for now 3. Chronic medical problems: Chronically nonverbal, history of seizure disorder, COPD, 4. DVT prophylaxis with subcu heparin Today, I reviewed her medication list and lab work results. May resume IV fluid hydration after surgery. Repeat lab work in the morning.
[2021-03-12] MEDS: LORazepam 0.5 MG TAB PEG/G-TUBE SCH ×2 (13:38→21:16)
--- NOTE | 2021-03-12 13:47 | XR ---
EXAMINATION TYPE: XR chest 1V portable DATE OF EXAM: 03/12/2021 CLINICAL HISTORY: Difficulty breathing progress study. TECHNIQUE: Single AP portable frontal view of the chest is obtained. COMPARISON: Chest x-ray from earlier today and older studies FINDINGS: Stable nasogastric tube. Stable gas prominent bowel loops in the visualized abdomen. Persis tent low lung volumes with bilateral multifocal increased opacities. Cardiac sludge size stable and w ithin normal limits. Chronic deformities bilateral shoulders redemonstrated. Osseous structures remai n demineralized. IMPRESSION: Persistent low lung volumes with bilateral multifocal opacities redemonstrated. Other fin dings as detailed above. Worsening right basilar findings noted otherwise no significant change from x-ray earlier today.
[2021-03-12] MEDS: IPRATROPIUM-ALBUTEROL 3 ML NEB INHALATION SCH ×2 (15:28→21:45)
--- NOTE | 2021-03-12 17:33 | P.GSCN ---
History of Present Illness Consult date: 03/12/21 Reason for Consult: Colonic obstruction History of present illness: Is a 60-year-old female who was transferred from outside hospital. Patient on CAT scan is evidence of colonic obstruction most likely were related to colonic volvulus. Patient is grossly symmetric. She is is mentally.. She is unable to give any significant information. Past Medical History Past Medical History: Asthma, COPD, CVA/TIA, Hearing Disorder / Deafness, Hyperlipidemia, Pneumonia, Seizure Disorder, Sleep Apnea/CPAP/BIPAP, Syncope, Vascular Disorder Additional Past Medical History / Comment(s): Pt tested covid + on 03/09/21 at [facility]. Other hx: Bowel obstructions/ileus and had a obstruction with colostomy which was reversed 08/02/20, constipation, cognitive delay/mentally challenged, bronchitis, dysphagia/has peg tube to supplement, tremors/tardive dyskinesia/tics, incontinent or urine and stool, UTIs, UTI with sepsis, macrocytic anemia, normally walks with assist of one but not lately-too difficult, MELLY with no cpap mild sensorineural bilateral hearing loss, venous insufficiency, sister unsure if pt has ever had a seizure, L arm contractured, bilateral feet hammer toes, chronic bilateral shoulder dislocations/hematoma, pancytopenia. History of Any Multi-Drug Resistant Organisms: None Reported Past Surgical History: Orthopedic Surgery Additional Past Surgical History / Comment(s): Peg tube, colectomy with ostomy placement, 08/02/20 reversal of colostomy; salvary gland left side removed, fx elbow surgery/ORIF, bilateral myringotomy and tubes.. Past Anesthesia/Blood Transfusion Reactions: No Reported Reaction Additional Past Anesthesia/Blood Transfusion Reaction / Comm: per [id number] hx of post-op reaction that she is aware of. Smoking Status: Never smoker - Past Family History Mother Family Medical History: Vascular Disorder Additional Family Medical History / Comment(s): Mother of a ruptured brain aneurysm in her 50s. Father Family Medical History: Coronary Artery Disease (CAD), Diabetes Mellitus Additional Family Medical History / Comment(s): Father lived to be 92 yrs old. He had CABG Medications and Allergies Home Medications Medication Instructions Recorded Confirmed Type polyethylene glycoL 3350 [Miralax] 17 gm PEG/G-TUBE DAILY@0700 07/19/20 03/12/21 History Valproic Acid Oral Soln [Depakene 375 mg PEG/G-TUBE BID@0700,2100 11/01/20 03/12/21 History Syrup] risperiDONE [RisperDAL] 2 mg PEG/G-TUBE DAILY@0700 #10 tab 11/06/20 03/12/21 Rx Ipratropium-Albuterol Nebulize 3 ml INHALATION RT-QID PRN 12/14/20 03/12/21 History [Duoneb 0.5 mg-3 mg/3 ml Soln] LORazepam [Ativan] 0.5 mg PEG/G-TUBE BID@1200,1600 12/14/20 03/12/21 History LORazepam [Ativan] 1 mg PEG/G-TUBE HS@209912/14/20 03/12/21 History Magnesium Hydroxide [Milk of 2,400 mg PEG/G-TUBE Q48H PRN 12/14/20 03/12/21 History Magnesia] Na Phos,M-B/Na Phos,Di-Ba [Fleet 133 ml RECTAL Q96D PRN 12/14/20 03/12/21 History Adult] Nutren Renal Liquid 1 can PEG/G-TUBE TID@0700,1100,1700 12/14/20 03/12/21 History Reguloid Powder 48.57% 1 tbsp PEG/G-TUBE BID@0700,209912/14/20 03/12/21 History bisacodyL [Bisacodyl] 10 mg RECTAL DAILY PRN 12/14/20 03/12/21 History Acetaminophen Tab [Tylenol] 500 mg PEG/G-TUBE Q12H #60 tab 12/27/20 03/12/21 Rx Acetaminophen [Children's Tylenol] 480 mg PEG/G-TUBE QID PRN 03/12/21 03/12/21 History Nutren Renal Liquid 0.5 can PEG/G-TUBE 03/12/21 03/12/21 History TID@1000,1400,2000 Oralbalance Gel 1 dose PO TID@0700,1700,209903/12/21 03/12/21 History amantadine HCL [Amantadine] 100 mg PEG/G-TUBE BID@0700,209903/12/21 03/12/21 History Allergies Allergy/AdvReac Type Severity Reaction Status Date / Time quetiapine Allergy Unknown Unknown Verified 03/12/21 06:55 lithium Allergy Unknown Verified 03/12/21 06:55 topiramate [From Topamax] Allergy Unknown Verified 03/12/21 06:55 Surgical - Exam Vital Signs Temp Pulse Resp BP Pulse Ox 101.2 F H 112 H 19 157/100 93 L 03/12/21 01:38 03/12/21 01:38 03/12/21 01:38 03/12/21 01:38 03/12/21 01:38 - General well developed, well nourished, no distress - Eyes PERRL - ENT normal pinna - Neck no masses - Respiratory normal expansion - Cardiovascular Rhythm: regular - Abdomen Distended Abdomen: soft Results - Labs 03/12/21 02:37 03/12/21 02:37 Abnormal Lab Results - Last 24 Hours (Table) 03/12/21 03/12/21 Range/Units 02:37 02:37 WBC 14.5 H (3.8-10.6) k/uL Neutrophils # 13.1 H (1.3-7.7) k/uL Lymphocytes # 0.5 L (1.0-4.8) k/uL BUN 25 H (7-17) mg/dL Glucose 155 H (74-99) mg/dL Alkaline Phosphatase 235 H (38-126) U/L Diabetes panel 03/12/21 Range/Units 02:37 Sodium 140 (137-145) mmol/L Potassium 3.6 (3.5-5.1) mmol/L Chloride 102 (98-107) mmol/L Carbon Dioxide 27 (22-30) mmol/L BUN 25 H (7-17) mg/dL Creatinine 0.52 (0.52-1.04) mg/dL Glucose 155 H (74-99) mg/dL Calcium 8.9 (8.4-10.2) mg/dL AST 19 (14-36) U/L ALT 12 (4-34) U/L Alkaline Phosphatase 235 H (38-126) U/L Total Protein 6.8 (6.3-8.2) g/dL Albumin 3.8 (3.5-5.0) g/dL Calcium panel 03/12/21 Range/Units 02:37 Calcium 8.9 (8.4-10.2) mg/dL Albumin 3.8 (3.5-5.0) g/dL Pituitary panel 03/12/21 Range/Units 02:37 Sodium 140 (137-145) mmol/L Potassium 3.6 (3.5-5.1) mmol/L Chloride 102 (98-107) mmol/L Carbon Dioxide 27 (22-30) mmol/L BUN 25 H (7-17) mg/dL Creatinine 0.52 (0.52-1.04) mg/dL Glucose 155 H (74-99) mg/dL Calcium 8.9 (8.4-10.2) mg/dL Adrenal panel 03/12/21 Range/Units 02:37 Sodium 140 (137-145) mmol/L Potassium 3.6 (3.5-5.1) mmol/L Chloride 102 (98-107) mmol/L Carbon Dioxide 27 (22-30) mmol/L BUN 25 H (7-17) mg/dL Creatinine 0.52 (0.52-1.04) mg/dL Glucose 155 H (74-99) mg/dL Calcium 8.9 (8.4-10.2) mg/dL Total Bilirubin 0.5 (0.2-1.3) mg/dL AST 19 (14-36) U/L ALT 12 (4-34) U/L Alkaline Phosphatase 235 H (38-126) U/L Total Protein 6.8 (6.3-8.2) g/dL Albumin 3.8 (3.5-5.0) g/dL Assessment and Plan Assessment: High-grade colonic infection. Patient will undergo exploratory laparotomy today .
[2021-03-12] MEDS ORDERED: LIDOCAINE 1% INJ 10MG/ML (20 ML MDV) ONE (18:52)
[2021-03-12] MEDS ORDERED: PHENYLEPHRINE-0.9% NACL SYG 1,000 MCG/10 ML SYRINGE ONE (18:52)
[2021-03-12] MEDS ORDERED: SUCCINYLCHOLINE CHLORIDE 100 MG/5 ML SYR IV ONE (18:52)
[2021-03-12] MEDS ORDERED: PROPOFOL 10 MG/ML 20 ML VIAL IV ONE (18:52)
[2021-03-12] MEDS ORDERED: fentaNYL (PF) 50 MCG/ML 2 ML AMP ONE (18:52)
[2021-03-12] MEDS ORDERED: IV FLUID CONTINUATION 1,000 ML IV ONE (18:52)
[2021-03-12] MEDS ORDERED: ROCURONIUM 10 MG/ML (5 ML VIAL) IV ONE (18:52)
[2021-03-12] MEDS ORDERED: MIDAZOLAM 2 MG/2 ML VIAL ONE (18:52)
[2021-03-12] MEDS ORDERED: LACTATED RINGERS 1,000 ML IV ONE (19:37)
[2021-03-12 20:35] LABS: Glucose,Whole Blood 134 mg/dL (75-99)
[2021-03-12 21:29] LABS: ABG Base Excess 2.1 mmol/L; ABG HCO3 29 mmol/L (21-25); ABG Oxygen Saturation 99.7 % (94-97); ABG PCO2 58 mmHg (35-45); ABG PO2 255 mmHg (83-108); ABG TCO2 30 mmol/L (19-24); Allen Test Performed? Yes
[2021-03-12] MEDS ORDERED: propofoL 100 ML IV ONE (23:39)
[2021-03-13] MEDS: AMPICILLIN-SULBACTAM 3 GM in SODIUM CHLORIDE 0.9% 100 ML IVPB SCH ×4 (00:30→18:18)
[2021-03-13] MEDS: VALPROIC ACID ORAL SOLN 250 MG/5 ML CUP PEG/G-TUBE SCH ×3 (00:30→21:21)
[2021-03-13] MEDS: HEPARIN SODIUM,PORCINE/PF 5,000 UNIT/0.5 ML SYRINGE SQ SCH ×3 (00:31→15:16)
[2021-03-13 04:37] LABS: HCT 35.1 % (34.0-46.0); HGB 11.6 gm/dL (11.4-16.0); MCV 99.9 fL (80.0-100.0); Mean Platelet Volume 8.2; Platelet Count 158 k/uL (150-450); RBC 3.52 m/uL (3.80-5.40); RDW 13.6 % (11.5-15.5); WBC 4.8 k/uL (3.8-10.6)
[2021-03-13 04:44] LABS: African American GFR (CKD) >90 (>60 ml/min/1.73 sqM); Anion Gap 5 mmol/L; Blood Urea Nitrogen 27 mg/dL (7-17); Calcium 7.8 mg/dL (8.4-10.2); Carbon Dioxide 29 mmol/L (22-30); Chloride 108 mmol/L (98-107); Glucose 123 mg/dL (74-99); Magnesium 2.1 mg/dL (1.6-2.3); Non-African American GFR(CKD) >90 (>60 ml/min/1.73 sqM); Potassium 3.8 mmol/L (3.5-5.1); Sodium 142 mmol/L (137-145)
[2021-03-13 04:55] LABS: ABG Base Excess 5.6 mmol/L; ABG HCO3 29 mmol/L (21-25); ABG Oxygen Saturation 93.5 % (94-97); ABG PCO2 39 mmHg (35-45); ABG PH 7.48 (7.35-7.45); ABG PO2 61 mmHg (83-108); ABG TCO2 30 mmol/L (19-24); Allen Test Performed? Yes
[2021-03-13 05:04] LABS: Band Neutrophils % 58 %; Lymphocytes # (M) 0.67 k/uL (1.0-4.8); Nucleated Red Blood Cells 0 /100 WBC (0-0)
[2021-03-13 05:05] LABS: Metamyelocytes # (M) 0.05 k/uL (0); Metamyelocytes % 1 %; Neutrophils % (M) 25 %; Total Cells Counted 200
[2021-03-13 05:06] LABS: Toxic Granulation Present
[2021-03-13] MEDS: risperiDONE 2 MG TAB PEG/G-TUBE SCH (06:41)
[2021-03-13] MEDS: polyethylene glycoL 3350 17 GM POWD.PACK PEG/G-TUBE SCH (06:41)
[2021-03-13] MEDS: IPRATROPIUM-ALBUTEROL 3 ML NEB INHALATION SCH (07:19)
--- NOTE | 2021-03-13 08:21 | P.OP ---
Date of Procedure: 03/12/21 Preoperative Diagnosis: Colon obstruction secondary to volvulus Postoperative Diagnosis: Massive dilated colon secondary to volvulus Procedure(s) Performed: Colectomy with end colostomy Anesthesia: GIGI Surgeon: Charly Chow Estimated Blood Loss (ml): 25 Pathology: other (colon) Condition: stable Disposition: PACU Description of Procedure: The patient's placed on the operating table in the supine position. She received general anesthesia. Her abdomen was massively distended. Skin was incised in the midline. The fascia was opened. The the colon was massively dilated. Measured approximately 15-20 cm diameter. There appeared to be evidence of a volvulus in the left colon. The colon was untorsed. At this point the colon was transected near the rectum. And then the mesentery the bowel was divided to the transverse colon. The transverse colon was then transected with a GI stapler. The specimens of pathology. The colostomy then brought up through the left upper quadrant. The fascia was closed with looped #1 PDS suture. Skin was closed felicia. Patient sent to the ICU in guarded condition.
--- NOTE | 2021-03-13 08:51 | XR ---
EXAMINATION TYPE: XR chest 1V portable DATE OF EXAM: 03/13/2021 COMPARISON: NONE CLINICAL HISTORY: Tube placement Difficulty breathing progress study. TECHNIQUE: Single AP portable frontal view of the chest is obtained. COMPARISON: Chest x-ray from 03/12/2021 FINDINGS: Enteric catheter is again visualized. Endotracheal tube has been placed approximately 2 cm above the gordy. This may be slightly retracted. Multiple overlying leads. . Stable gas prominent carly wel loops in the visualized abdomen. Persistent low lung volumes with bilateral multifocal increased opacities. Heart size is within normal limits. Probable small right pleural effusion. No left pleural effusion. No pneumothorax. Severe chronic deformities bilateral shoulders redemonstrated. Osseous st ructures remain demineralized. IMPRESSION: 1. New endotracheal tube with its tip approximately 2 cm above the gordy. This may be slightly retra cted. Enteric catheter is again visualized. 2. Persistent low lung volumes with bilateral multifocal opacities again visualized. Probable small r ight pleural effusion.
[2021-03-13] MEDS: PANTOPRAZOLE 40 MG/10 ML VIAL IV SCH (08:52)
[2021-03-13] MEDS ORDERED: CHLORHEXIDINE GLUCONATE 15 ML CUP MUCOUS MEM SCH (09:00)
[2021-03-13] MEDS: DEXAMETHASONE SOD PHOSPHATE 10 MG/ML 1 ML VIAL IV SCH (09:32)
[2021-03-13] MEDS: MORPHINE SULFATE 4 MG/ML SYRINGE IV PRN (10:41)
[2021-03-13] MEDS: ALBUTEROL HFA INHALER INHALATION SCH ×3 (11:03→20:58)
--- NOTE | 2021-03-13 11:52 | P.CNPUL ---
History of Present Illness Consult date: 03/13/21 Requesting physician: Angelika Valenzuela Reason for consult: other (Critical care/ventilator management) Chief complaint: Abdominal pain History of present illness: This is a 60-year-old female patient who has a history of being mentally challenged, hypertension, hyperlipidemia, depression/anxiety, seizure disorder, mild intermittent chronic bronchial asthma and follows with Dr. Kowalski in our office for the same. She also has a history of chronic constipation with previous colectomy and colostomy with subsequent reversal. She was brought here to the emergency room from [facility] with complaints of abdominal discomfort. She was found to have a large bowel obstruction. She had abdominal distention and episodes of vomiting. The patient herself is unable to give any information due to her developmental disability. Computed tomography scan revealed a large bowel obstruction possibly related to twisting or volvulus versus an anastomosis stricture. She was transferred here for the same. She was taken to the operating room by Dr. Chow last evening. She had undergone colectomy with end colostomy due to massive dilated colon secondary to volvulus. She is seen today in consultation. She remains intubated on the mechanical ventilator. Current settings are assist-control mode. Rate of 12. Tequin 400. FiO2 50%. PEEP of 5. Morning blood gases reveal a pO2 of 61, pCO2 39, pH 7.48. She has propofol on for sedation at 50 mg/kg/m. 0.9 normal saline at 75 ML's per hour. Chest x-ray shows persistent low lung volumes and bilateral multiple focal opacities. Small right pleural effusion. She did test positive for COVID-19 infection 03/11/2021. Sputum cultures pending. White count 4.8. Hemoglobin 11.6. Platelets 158. Sodium 142. Potassium 3.8. Creatinine 0.56. Midline surgical dressing dry and intact. Left side colostomy with trace of blood returned thus far. She's been initiated on Zosyn, bronchodilators. She is currently in sinus rhythm. Review of Systems ROS unobtainable: due to endotracheal tube Past Medical History Past Medical History: Asthma, COPD, CVA/TIA, Hearing Disorder / Deafness, Hyperlipidemia, Pneumonia, Seizure Disorder, Sleep Apnea/CPAP/BIPAP, Syncope, Vascular Disorder Additional Past Medical History / Comment(s): Pt tested covid + on 03/09/21 at [facility]. Other hx: Bowel obstructions/ileus and had a obstruction with colostomy which was reversed 08/02/20, constipation, cognitive delay/mentally challenged, bronchitis, dysphagia/has peg tube to supplement, tremors/tardive dyskinesia/tics, incontinent or urine and stool, UTIs, UTI with sepsis, macrocytic anemia, normally walks with assist of one but not lately-too difficult, MELLY with no cpap mild sensorineural bilateral hearing loss, venous insufficiency, sister unsure if pt has ever had a seizure, L arm contractured, bilateral feet hammer toes, chronic bilateral shoulder dislocations/hematoma, pancytopenia. History of Any Multi-Drug Resistant Organisms: None Reported Past Surgical History: Orthopedic Surgery Additional Past Surgical History / Comment(s): Peg tube, colectomy with ostomy placement, 08/02/20 reversal of colostomy; salvary gland left side removed, fx elbow surgery/ORIF, bilateral myringotomy and tubes.. Past Anesthesia/Blood Transfusion Reactions: No Reported Reaction Additional Past Anesthesia/Blood Transfusion Reaction / Comment(s): per [id number] hx of post-op reaction that she is aware of. Smoking Status: Never smoker - Past Family History Mother Family Medical History: Vascular Disorder Additional Family Medical History / Comment(s): Mother of a ruptured brain aneurysm in her 50s. Father Family Medical History: Coronary Artery Disease (CAD), Diabetes Mellitus Additional Family Medical History / Comment(s): Father lived to be 92 yrs old. He had CABG Medications and Allergies Home Medications Medication Instructions Recorded Confirmed Type polyethylene glycoL 3350 [Miralax] 17 gm PEG/G-TUBE DAILY@0700 07/19/20 03/12/21 History Valproic Acid Oral Soln [Depakene 375 mg PEG/G-TUBE BID@0700,2100 11/01/20 03/12/21 History Syrup] risperiDONE [RisperDAL] 2 mg PEG/G-TUBE DAILY@0700 #10 tab 11/06/20 03/12/21 Rx Ipratropium-Albuterol Nebulize 3 ml INHALATION RT-QID PRN 12/14/20 03/12/21 History [Duoneb 0.5 mg-3 mg/3 ml Soln] LORazepam [Ativan] 0.5 mg PEG/G-TUBE BID@1200,1600 12/14/20 03/12/21 History LORazepam [Ativan] 1 mg PEG/G-TUBE HS@2100 12/14/20 03/12/21 History Magnesium Hydroxide [Milk of 2,400 mg PEG/G-TUBE Q48H PRN 12/14/20 03/12/21 History Magnesia] Na Phos,M-B/Na Phos,Di-Ba [Fleet 133 ml RECTAL Q96D PRN 12/14/20 03/12/21 History Adult] Nutren Renal Liquid 1 can PEG/G-TUBE TID@0700,1100,1700 12/14/20 03/12/21 History Reguloid Powder 48.57% 1 tbsp PEG/G-TUBE BID@0700,2100 12/14/20 03/12/21 History bisacodyL [Bisacodyl] 10 mg RECTAL DAILY PRN 12/14/20 03/12/21 History Acetaminophen Tab [Tylenol] 500 mg PEG/G-TUBE Q12H #60 tab 12/27/20 03/12/21 Rx Acetaminophen [Children's Tylenol] 480 mg PEG/G-TUBE QID PRN 03/12/21 03/12/21 History Nutren Renal Liquid 0.5 can PEG/G-TUBE 03/12/21 03/12/21 History TID@1000,1400,2000 Oralbalance Gel 1 dose PO TID@0700,1700,2100 03/12/21 03/12/21 History amantadine HCL [Amantadine] 100 mg PEG/G-TUBE BID@0700,2100 03/12/21 03/12/21 History Allergies Allergy/AdvReac Type Severity Reaction Status Date / Time quetiapine Allergy Unknown Unknown Verified 03/12/21 06:55 lithium Allergy Unknown Verified 03/12/21 06:55 topiramate [From Topamax] Allergy Unknown Verified 03/12/21 06:55 Physical Exam Vitals: Vital Signs Temp Pulse Resp BP Pulse Ox 03/13/21 11:00 92 31 H 98/87 94 L 03/13/21 10:00 103 H 25 H 133/81 88 L 03/13/21 09:00 80 12 107/55 92 L 03/13/21 08:00 100.2 F H 78 12 101/52 97 05/27/21 07:34 87 03/13/21 07:19 83 03/13/21 07:00 81 20 99/54 95 03/13/21 06:30 75 20 99/54 94 L 03/13/21 06:00 75 2 L 99/57 94 L 03/13/21 05:30 76 20 99/57 95 03/13/21 05:00 80 10 L 96/49 93 L 03/13/21 04:30 77 20 96/49 94 L 03/13/21 04:00 97.3 F L 78 11 L 101/53 93 L 03/13/21 03:30 74 16 101/53 94 L 03/13/21 03:00 73 20 99/52 95 03/13/21 02:30 76 20 99/52 96 03/13/21 02:00 77 20 109/60 96 03/13/21 01:30 80 20 109/60 95 03/13/21 01:00 79 20 106/58 96 03/13/21 00:30 81 20 106/58 97 03/13/21 00:00 97.8 F 79 20 110/56 99 03/12/21 23:30 80 20 98 03/12/21 23:00 82 20 96 03/12/21 22:35 88 20 94 L 03/12/21 22:30 84 20 95 03/12/21 22:20 85 21 95 03/12/21 22:10 81 16 96 03/12/21 22:00 80 17 139/64 95 03/12/21 21:50 82 16 139/64 97 03/12/21 21:40 83 16 139/64 98 03/12/21 21:30 87 16 139/64 100 03/12/21 21:20 90 14 139/64 100 03/12/21 21:10 81 16 139/64 100 03/12/21 21:00 81 16 128/97 100 03/12/21 20:50 85 5 L 128/97 100 03/12/21 20:40 16 100 03/12/21 20:33 97.2 F L 93 16 100 03/12/21 16:00 100.9 F H 93 20 134/85 89 L 03/12/21 14:05 105 H 20 139/86 92 L 03/12/21 12:45 96 18 138/78 90 L 03/12/21 11:48 101 H 20 145/86 90 L Intake and Output 03/12/21 03/13/21 03/13/21 22:59 06:59 14:59 Intake Total 1075 700 375 Output Total 215 245 179 Balance 860 455 196 Intake: IV 1075 600 375 Sodium Chloride 0.9% 1, 75 600 375 000 ml @ 75 mls/hr IV . [id number] [facility] Rx#:[id number] Intake, IV Titration 100 Amount propofoL 1,000 mg In 100 Empty Bag 1 bag @ Titrate IV .Q0M [facility] Rx#: [id number] Output: Urine 165 245 179 Estimated Blood Loss 50 Other: Voiding Method Indwelling Catheter Indwelling Catheter Weight 60.6 kg GENERAL EXAM: Intubated, sedated 60-year-old female, comfortable in no apparent distress. HEAD: Normocephalic. EYES: Sluggish reaction of pupils, equal size. NOSE: Clear with pink turbinates. THROAT: Oral endotracheal and gastric tubes secured in place. No erythema or exudates. NECK: No masses, no JVD. CHEST: No chest wall deformity. LUNGS: Equal air entry with few scattered rhonchi. CVS: S1 and S2 normal with no audible murmur, regular rhythm. ABDOMEN: Midline dressing dry and intact. Left colostomy in place with trace serosanguineous drainage. SPINE: No scoliosis or deformity SKIN: No rashes CENTRAL NERVOUS SYSTEM: Sedated, tone is normal in all 4 extremities. EXTREMITIES: There is no peripheral edema. No clubbing, no cyanosis. Peripheral pulses are intact. Results - Laboratory Findings CBC and BMP: 03/13/21 03:47 03/13/21 03:47 ABG ABG pH 7.48 (7.35-7.45) H 03/13/21 04:42 ABG pCO2 39 mmHg (35-45) 03/13/21 04:42 ABG pO2 61 mmHg (83-108) L 03/13/21 04:42 ABG O2 Saturation 93.5 % (94-97) L 03/13/21 04:42 Abnormal lab findings: Abnormal Labs 03/12/21 03/12/21 03/12/21 02:37 02:37 20:34 WBC 14.5 H RBC Neutrophils # 13.1 H Lymphocytes # 0.5 L Lymphocytes # (Manual) Metamyelocytes # (Man) ABG pH ABG pCO2 ABG pO2 ABG HCO3 ABG Total CO2 ABG O2 Saturation Chloride BUN 25 H Glucose 155 H POC Glucose (mg/dL) 134 H Calcium Alkaline Phosphatase 235 H 03/12/21 03/13/21 03/13/21 21:26 03:47 03:47 WBC RBC 3.52 L Neutrophils # Lymphocytes # Lymphocytes # (Manual) 0.67 L Metamyelocytes # (Man) 0.05 H ABG pH 7.30 L ABG pCO2 58 H ABG pO2 255 H ABG HCO3 29 H ABG Total CO2 30 H ABG O2 Saturation 99.7 H Chloride 108 H BUN 27 H Glucose 123 H POC Glucose (mg/dL) Calcium 7.8 L Alkaline Phosphatase 03/13/21 04:42 WBC RBC Neutrophils # Lymphocytes # Lymphocytes # (Manual) Metamyelocytes # (Man) ABG pH 7.48 H ABG pCO2 ABG pO2 61 L ABG HCO3 29 H ABG Total CO2 30 H ABG O2 Saturation 93.5 L Chloride BUN Glucose POC Glucose (mg/dL) Calcium Alkaline Phosphatase - Diagnostic Findings Chest x-ray: image reviewed Assessment and Plan Assessment: 1 Acute abdominal pain secondary to large bowel obstruction with volvulus, status post colectomy with end colostomy. Postoperative day #1. 2 Sedation with mechanical ventilation as an expected outcome of surgery 3 CoVID positive on 03/09/2021 at [facility] 4 Previous history of chronic constipation with colectomy and subsequent reversal 5 History of tardive dyskinesia with mental challenge residing in [facility] 6 Dysphagia status post previous PEG tube placement 7 Chronic bilateral shoulder dislocations 8 History of seizures 9 Hypertension 10 Hyperlipidemia 11 Anxiety/depression 12 Mild intermittent chronic bronchial asthma Plan: The patient was seen and evaluated by Dr. Kowalski Chest x-ray, ABGs and labs reviewed Provide interruption of sedation and weaning parameters if possible Plan for extubation this a.m. if tolerated Continue Unasyn Add Decadron Continue bronchodilators PICC line placement for IV access, antibiotics We will continue to follow and make further recommendations based on her clinical status I, the cosigning physician, performed a history & physical examination of the patient. Lungs sounds with bilateral scattered rhonchi. Maintaining good O2 sa turations in the 90s on 50% FiO2 via the mechanical ventilator. I discussed the assessment and plan of care with my nurse practitioner, Reyna Taylor. I attest to the above consultation as dictated by her.
--- NOTE | 2021-03-13 12:33 | P.PN ---
Progress Note - Text Progress Note Date: 03/13/21 The patient is postoperative day 1 from exploratory laparotomy, colectomy, end colostomy. She was extubated this morning. Her vital signs are stable. Her NG tube was withdrawn. On exam vital signs are stable. There is some serosanguineous drainage out of the colostomy. Incision is clean dry tach. Patient will remain nothing by mouth. Patient will have her medications given through the PEG tube. She'll continue receive supportive care.
--- NOTE | 2021-03-13 13:29 | P.PN ---
Subjective Progress Note Date: 03/13/21 Patient was intubated and is being weaned off of sedation this morning when I saw her. She is postoperative day #1 status post partial colectomy with colostomy placement. Nursing staff informed me that patient COVID screen at outside hospital was positive. Objective - Vital Signs Vital signs: Vital Signs Temp 100.2 F H 03/13/21 08:00 Pulse 92 03/13/21 11:00 Resp 31 H 03/13/21 11:00 BP 98/87 03/13/21 11:00 Pulse Ox 94 L 03/13/21 11:00 Intake & Output 03/12/21 03/13/21 03/13/21 18:59 06:59 18:59 Intake Total 200 1575 375 Output Total 460 179 Balance 200 1115 196 Weight 72.575 kg 60.6 kg Intake: IV 200 1475 375 Sodium Chloride 0.9% 1, 675 375 000 ml @ 75 mls/hr IV . [id number] [facility] Rx#:[id number] Intake, IV Titration 100 Amount propofoL 1,000 mg In 100 Empty Bag 1 bag @ Titrate IV .Q0M [facility] Rx#: [id number] Output: Urine 410 179 Estimated Blood Loss 50 Other: Voiding Method Indwelling Catheter - Exam General: The patient is awake and alert, she is intubated. She having continuous lipsmacking Eye: there is normal conjunctiva bilaterally. Neck: The neck is supple, there is no JVD. Cardiovascular: Normal S1-S2, no S3-S4, no murmurs. Respiratory: Lungs clear to auscultation bilaterally Gastrointestinal: Abdomen is soft, nontender. Colostomy in place Musculoskeletal: There is no pedal edema. Skin: Skin is warm and dry - Labs CBC & Chem 7: 03/13/21 03:47 03/13/21 03:47 Labs: Abnormal Lab Results - Last 24 Hours (Table) 03/12/21 03/12/21 03/13/21 Range/Units 20:34 21:26 03:47 RBC 3.52 L (3.80-5.40) m/uL Lymphocytes # (Manual) 0.67 L (1.0-4.8) k/uL Metamyelocytes # (Man) 0.05 H (0) k/uL ABG pH 7.30 L (7.35-7.45) ABG pCO2 58 H (35-45) mmHg ABG pO2 255 H (83-108) mmHg ABG HCO3 29 H (21-25) mmol/L ABG Total CO2 30 H (19-24) mmol/L ABG O2 Saturation 99.7 H (94-97) % Chloride (98-107) mmol/L BUN (7-17) mg/dL Glucose (74-99) mg/dL POC Glucose (mg/dL) 134 H (75-99) mg/dL Calcium (8.4-10.2) mg/dL 03/13/21 03/13/21 Range/Units 03:47 04:42 RBC (3.80-5.40) m/uL Lymphocytes # (Manual) (1.0-4.8) k/uL Metamyelocytes # (Man) (0) k/uL ABG pH 7.48 H (7.35-7.45) ABG pCO2 (35-45) mmHg ABG pO2 61 L (83-108) mmHg ABG HCO3 29 H (21-25) mmol/L ABG Total CO2 30 H (19-24) mmol/L ABG O2 Saturation 93.5 L (94-97) % Chloride 108 H (98-107) mmol/L BUN 27 H (7-17) mg/dL Glucose 123 H (74-99) mg/dL POC Glucose (mg/dL) (75-99) mg/dL Calcium 7.8 L (8.4-10.2) mg/dL Microbiology - Last 24 Hours (Table) 03/13/21 00:32 Sputum Culture - Preliminary Sputum Assessment and Plan Assessment: This is a 60-year-old female with past medical history noted below significant for developmental delay chronically nonverbal that presented to the emergency room as a transfer from outside hospital for further evaluation of bowel obstruction. 1. Large bowel obstruction: Status post partial colectomy with colostomy placement postoperative day #1. Postoperative care per general surgery. 2. COVID-19 pneumonia: With positive screening test at outside hospital. Started on Decadron 6 mg daily day #1. Vitamin C, vitamin D, melatonin, and zinc supplement ordered. 3. COPD exacerbation, continue bronchodilators 3. Chronic medical problems: Developmental today chronically nonverbal, history of seizure disorder, COPD, 4. DVT prophylaxis with subcu heparin Today, I reviewed her medication list and lab work results. Ventilator weaning trial as directed per ICU team. Repeat lab work in the morning.
[2021-03-13] MEDS: LORazepam 0.5 MG TAB PEG/G-TUBE SCH ×2 (15:17→17:31)
[2021-03-13] MEDS: MELATONIN 5 MG TABLET PO SCH (21:20)
[2021-03-14] MEDS: AMPICILLIN-SULBACTAM 3 GM in SODIUM CHLORIDE 0.9% 100 ML IVPB SCH ×4 (00:27→17:04)
[2021-03-14] MEDS: HEPARIN SODIUM,PORCINE/PF 5,000 UNIT/0.5 ML SYRINGE SQ SCH ×3 (00:27→16:17)
[2021-03-14 05:11] LABS: Basophils % (A) 0 %; Eosinophils % (A) 0 %; HGB 10.3 gm/dL (11.4-16.0); Lymphocytes # (A) 0.4 k/uL (1.0-4.8); Lymphocytes % (A) 6 %; MCH 33.1 pg (25.0-35.0); MCHC 33.1 g/dL (31.0-37.0); MCV 99.9 fL (80.0-100.0); Mean Platelet Volume 8.1; Monocytes # (A) 0.2 k/uL (0-1.0); Monocytes % (A) 4 %; Neutrophils # (A) 5.8 k/uL (1.3-7.7); Neutrophils % (A) 89 %; Platelet Count 154 k/uL (150-450); RBC 3.11 m/uL (3.80-5.40); RDW 13.6 % (11.5-15.5); WBC 6.5 k/uL (3.8-10.6)
[2021-03-14 05:20] LABS: ALT 12 U/L (4-34); AST 26 U/L (14-36); African American GFR (CKD) >90 (>60 ml/min/1.73 sqM); Albumin 2.6 g/dL (3.5-5.0); Alkaline Phosphatase 139 U/L (38-126); Anion Gap 5 mmol/L; Blood Urea Nitrogen 17 mg/dL (7-17); Calcium 8.1 mg/dL (8.4-10.2); Carbon Dioxide 30 mmol/L (22-30); Chloride 110 mmol/L (98-107); Glucose 107 mg/dL (74-99); Non-African American GFR(CKD) >90 (>60 ml/min/1.73 sqM); Potassium 3.8 mmol/L (3.5-5.1); Sodium 145 mmol/L (137-145); Total Bilirubin 0.2 mg/dL (0.2-1.3); Total Protein 5.2 g/dL (6.3-8.2)
[2021-03-14] MEDS: VALPROIC ACID ORAL SOLN 250 MG/5 ML CUP PEG/G-TUBE SCH ×2 (07:06→21:02)
[2021-03-14] MEDS: risperiDONE 2 MG TAB PEG/G-TUBE SCH (07:06)
[2021-03-14] MEDS: polyethylene glycoL 3350 17 GM POWD.PACK PEG/G-TUBE SCH (07:07)
--- NOTE | 2021-03-14 08:04 | XR ---
EXAMINATION TYPE: XR chest 1V portable DATE OF EXAM: 03/14/2021 COMPARISON: 03/13/2021 HISTORY: Tube placement, difficulty breathing TECHNIQUE: Single AP portable frontal view of the chest is obtained. COMPARISON: Chest x-ray from 03/13/2021 FINDINGS: Enteric catheter and endotracheal tube have been removed. Multiple overlying leads. . Stabl e gas prominent bowel loops in the visualized abdomen. Persistent low lung volumes with bilateral mul tifocal patchy airspace opacities appear slightly increased in the left lung. Heart size is within no rmal limits. Probable small right pleural effusion. No left pleural effusion. No pneumothorax. Severe chronic deformities bilateral shoulders redemonstrated. Osseous structures are demineralized. IMPRESSION: 1. Endotracheal tube and enteric catheter have been removed. 2. Low lung volumes with bilateral patchy multifocal airspace opacities again visualized. These appea r increased in the left lung. Probable small right pleural effusion.
[2021-03-14] MEDS: ALBUTEROL HFA INHALER INHALATION SCH ×4 (08:06→20:03)
[2021-03-14] MEDS: CHOLECALCIFEROL 25 MCG (1000 IU) TABLET PO SCH (09:18)
[2021-03-14] MEDS: DEXAMETHASONE SOD PHOSPHATE 10 MG/ML 1 ML VIAL IV SCH (09:18)
[2021-03-14] MEDS: ZINC SULFATE 220 MG CAP PO SCH (09:18)
[2021-03-14] MEDS: ASCORBIC ACID 500 MG TAB PO SCH (09:18)
[2021-03-14] MEDS: PANTOPRAZOLE 40 MG/10 ML VIAL IV SCH (09:18)
--- NOTE | 2021-03-14 09:42 | P.PN ---
Progress Note - Text Progress Note Date: 03/14/21 The patient is postoperative day 2 from partial colectomy and colostomy for colonic volvulus. She is extubated. On exam vital signs are stable. Abdomen soft colostomy has some serosanguineous drainage. Incision is clean dry intact Patient will start low-dose tube feeds through her PEG tube.
--- NOTE | 2021-03-14 10:33 | P.PN ---
Subjective Progress Note Date: 03/14/21 Principal diagnosis: Bowel obstruction secondary to colonic volvulus This is a 60-year-old female patient who has a history of being mentally challenged, hypertension, hyperlipidemia, depression/anxiety, seizure disorder, mild intermittent chronic bronchial asthma and follows with Dr. Kowalski in our office for the same. She also has a history of chronic constipation with pre vious colectomy and colostomy with subsequent reversal. She was brought here to the emergency room from [facility] with complaints of abdominal discomfort. She was found to have a large bowel obstruction. She had abdominal distention and episodes of vomiting. The patient herself is unable to give any information due to her developmental disability. Computed tomography scan revealed a large bowel obstruction possibly related to twisting or volvulus versus an anastomosis stricture. She was transferred here for the same. She was taken to the operating room by Dr. Chow last evening. She had undergone colectomy with end colostomy due to massive dilated colon secondary to volvulus. She is seen today in consultation. She remains intubated on the mechanical ventilator. Current settings are assist-control mode. Rate of 12. Tequin 400. FiO2 50%. PEEP of 5. Morning blood gases reveal a pO2 of 61, pCO2 39, pH 7.48. She has propofol on for sedation at 50 mg/kg/m. 0.9 normal saline at 75 ML's per hour. Chest x-ray shows persistent low lung volumes and bilateral multiple focal opacities. Small right pleural effusion. She did test positive for COVID-19 infection 03/11/2021. Sputum cultures pending. White count 4.8. Hemoglobin 11.6. Platelets 158. Sodium 142. Potassium 3.8. Creatinine 0.56. Midline surgical dressing dry and intact. Left side colostomy with trace of blood returned thus far. She's been initiated on Zosyn, bronchodilators. She is currently in sinus rhythm. The patient is seen today 03/14/2021 in follow-up in the intensive care unit. She was successfully extubated yesterday. She is currently on 50% Ventimask with O2 saturations in the 90s. He is resting in bed. She has some garbled noises. No clear words are spoken. Chest x-ray reveals low lung volumes with bilateral patchy multifocal airspace opacities. She was positive for COVID-19 this week. Suspect aspiration. Sputum culture pending. White count 6.5. Hemoglobin 10.3. Lymphocytes 0.4. Sodium 145. Potassium 3.8. Creatinine 0.46. AST 26. ALT 12. Albumin 2.6. She is continued on Unasyn. She is on vitamin supplements, Decadron, heparin for DVT prophylaxis. Colostomy has some gas and serosanguineous fluid noted. Hypoactive bowel sounds. Objective - Vital Signs Vital signs: Vital Signs Temp 99.8 F H 03/14/21 04:00 Pulse 75 03/14/21 09:00 Resp 13 03/14/21 09:00 BP 109/59 03/14/21 09:00 Pulse Ox 97 03/14/21 09:00 Intake & Output 03/13/21 03/14/21 03/14/21 18:59 06:59 18:59 Intake Total 975 825 225 Output Total 553 600 130 Balance 422 225 95 Weight 60.3 kg Intake: IV 975 825 225 Sodium Chloride 0.9% 1, 975 825 225 000 ml @ 75 mls/hr IV . [id number] [facility] Rx#:[id number] Output: Urine 553 600 130 Other: Voiding Method Indwelling Catheter Indwelling Catheter Indwelling Catheter - Exam GENERAL EXAM: Awake, alert, nonverbal 60-year-old female, on 50% Ventimask, f airly comfortable in no apparent distress. HEAD: Normocephalic. EYES: Sluggish reaction of pupils, equal size. NOSE: Clear with pink turbinates. THROAT: Oral endotracheal and gastric tubes secured in place. No erythema or exudates. NECK: No masses, no JVD. CHEST: No chest wall deformity. LUNGS: Equal air entry with few scattered rhonchi. CVS: S1 and S2 normal with no audible murmur, regular rhythm. ABDOMEN: Hypoactive bowel sounds. Midline dressing dry and intact. Left colostomy in place with gas and trace serosanguineous drainage. SPINE: No scoliosis or deformity SKIN: No rashes CENTRAL NERVOUS SYSTEM: Alert, tone is normal in all 4 extremities. EXTREMITIES: There is no peripheral edema. No clubbing, no cyanosis. Peripheral pulses are intact. - Labs CBC & Chem 7: 03/14/21 04:27 03/14/21 04:27 Labs: Abnormal Lab Results - Last 24 Hours (Table) 03/14/21 03/14/21 Range/Units 04:27 04:27 RBC 3.11 L (3.80-5.40) m/uL Hgb 10.3 L (11.4-16.0) gm/dL Hct 31.0 L (34.0-46.0) % Lymphocytes # 0.4 L (1.0-4.8) k/uL Chloride 110 H (98-107) mmol/L Creatinine 0.46 L (0.52-1.04) mg/dL Glucose 107 H (74-99) mg/dL Calcium 8.1 L (8.4-10.2) mg/dL Alkaline Phosphatase 139 H (38-126) U/L Total Protein 5.2 L (6.3-8.2) g/dL Albumin 2.6 L (3.5-5.0) g/dL Microbiology - Last 24 Hours (Table) 03/13/21 00:32 Gram Stain - Preliminary Sputum Sputum Culture - Preliminary Assessment and Plan Assessment: 1 Acute abdominal pain secondary to large bowel obstruction with volvulus, status post colectomy with end colostomy. Postoperative day #2. 2 Sedation with mechanical ventilation as an expected outcome of surgery, extubated 03/13/2021, on 50% Ventimask 3 CoVID positive on 03/09/2021 at [facility] 4 Previous history of chronic constipation with colectomycolostomy and s ubsequent reversal 5 History of tardive dyskinesia and mentally challenged, residing in [facility] 6 Dysphagia status post previous PEG tube placement 7 Chronic bilateral shoulder dislocations 8 History of seizures 9 Hypertension 10 Hyperlipidemia 11 Anxiety/depression 12 Mild intermittent chronic bronchial asthma Plan: The patient was seen and evaluated by Dr. Kowalski Chest x-ray and labs reviewed Remains on 50% Ventimask Nonverbal, cannot follow commands for IS Continue Unasyn Continue Decadron, vitamin supplements, heparin for DVT prophylaxis Continue bronchodilators Initiate trickle feeds per PEG tube, cleared with general surgery We will continue to monitor her closely here in the ICU We will continue to follow and make further recommendations based on her clinical status I, the cosigning physician, performed a history & physical examination of the patient. Lungs sounds with bilateral scattered rhonchi. Maintaining good O2 saturations in the 90s on 50% FiO2 via Ventimask. I discussed the assessment and plan of care with my nurse practitioner, Reyna Taylor. I attest to the above note as dictated by her.
[2021-03-14] MEDS: LORazepam 0.5 MG TAB PEG/G-TUBE SCH ×2 (11:40→16:17)
[2021-03-14] MEDS: HYDROmorphone 1 MG/ML 1 ML SYRINGE IVP PRN ×2 (12:04→21:27)
--- NOTE | 2021-03-14 13:49 | P.PN ---
Subjective Progress Note Date: 03/14/21 Patient is awake and alert. She appears comfortable. She's on 15 L high flow oxygen. Objective - Vital Signs Vital signs: Vital Signs Temp 99.8 F H 03/14/21 04:00 Pulse 92 03/14/21 12:00 Resp 28 H 03/14/21 12:00 BP 127/96 03/14/21 12:00 Pulse Ox 93 L 03/14/21 12:00 Intake & Output 03/13/21 03/14/21 03/14/21 18:59 06:59 18:59 Intake Total 975 825 375 Output Total 553 600 225 Balance 422 225 150 Weight 60.3 kg 60.3 kg Intake: IV 975 825 225 Sodium Chloride 0.9% 1, 975 825 225 000 ml @ 75 mls/hr IV . [id number] [facility] Rx#:[id number] Intake, IV Titration 100 Amount Ampicillin-Sulbactam 3 gm 100 In Sodium Chloride 0.9% 100 ml @ 200 mls/hr IVPB Q6H [facility] Rx#:[id number] Tube Feeding 20 Other 30 Output: Urine 553 600 225 Other: Voiding Method Indwelling Catheter Indwelling Catheter Indwelling Catheter - Exam General: The patient is awake and alert, in no distress Eye: there is normal conjunctiva bilaterally. Neck: The neck is supple, there is no JVD. Cardiovascular: Normal S1-S2, no S3-S4, no murmurs. Respiratory: Lungs with diffuse rhonchi and rales Gastrointestinal: Abdomen is soft, PEG tube in place. Colostomy with some serous output Musculoskeletal: There is no pedal edema. Skin: Skin is warm and dry - Labs CBC & Chem 7: 03/14/21 04:27 03/14/21 04:27 Labs: Abnormal Lab Results - Last 24 Hours (Table) 03/14/21 03/14/21 Range/Units 04:27 04:27 RBC 3.11 L (3.80-5.40) m/uL Hgb 10.3 L (11.4-16.0) gm/dL Hct 31.0 L (34.0-46.0) % Lymphocytes # 0.4 L (1.0-4.8) k/uL Chloride 110 H (98-107) mmol/L Creatinine 0.46 L (0.52-1.04) mg/dL Glucose 107 H (74-99) mg/dL Calcium 8.1 L (8.4-10.2) mg/dL Alkaline Phosphatase 139 H (38-126) U/L Total Protein 5.2 L (6.3-8.2) g/dL Albumin 2.6 L (3.5-5.0) g/dL Microbiology - Last 24 Hours (Table) 03/13/21 00:32 Gram Stain - Preliminary Sputum Sputum Culture - Preliminary Cary albicans Assessment and Plan Assessment: This is a 60-year-old female with past medical history noted below significant for developmental delay chronically nonverbal that presented to the emergency room as a transfer from outside hospital for further evaluation of bowel obstruction. 1. Large bowel obstruction: Status post partial colectomy with colostomy placement postoperative day #2. Postoperative care per general surgery. 2. COVID-19 pneumonia: With positive screening test at outside hospital. Started on Decadron 6 mg daily day #2. Vitamin C, vitamin D, melatonin, and zinc supplement ordered. 3. Acute hypoxic respiratory failure 4. COPD exacerbation, continue bronchodilators 5. Chronic medical problems: Developmental today chronically nonverbal, history of seizure disorder, COPD, 6. DVT prophylaxis with subcu heparin Today, I reviewed her medication list and lab work results. Continue ICU care. Appreciate national sales consultant's recommendations. Start tube feed as directed by dietitian. Repeat lab work in the morning.
[2021-03-14] MEDS: MELATONIN 5 MG TABLET PO SCH (21:03)
[2021-03-15] MEDS: HEPARIN SODIUM,PORCINE/PF 5,000 UNIT/0.5 ML SYRINGE SQ SCH ×4 (00:42→23:16)
[2021-03-15] MEDS: AMPICILLIN-SULBACTAM 3 GM in SODIUM CHLORIDE 0.9% 100 ML IVPB SCH ×5 (00:43→23:15)
[2021-03-15] MEDS: HYDROmorphone 1 MG/ML 1 ML SYRINGE IVP PRN ×5 (01:18→21:10)
[2021-03-15 04:56] LABS: Basophils % (A) 0 %; Eosinophils % (A) 0 %; HGB 10.5 gm/dL (11.4-16.0); Lymphocytes # (A) 0.8 k/uL (1.0-4.8); Lymphocytes % (A) 9 %; MCH 33.6 pg (25.0-35.0); MCHC 33.8 g/dL (31.0-37.0); MCV 99.4 fL (80.0-100.0); Mean Platelet Volume 8.1; Monocytes # (A) 0.3 k/uL (0-1.0); Monocytes % (A) 3 %; Neutrophils # (A) 7.2 k/uL (1.3-7.7); Neutrophils % (A) 87 %; Platelet Count 169 k/uL (150-450); RBC 3.12 m/uL (3.80-5.40); RDW 14.3 % (11.5-15.5); WBC 8.4 k/uL (3.8-10.6)
[2021-03-15 05:36] LABS: African American GFR (CKD) >90 (>60 ml/min/1.73 sqM); Anion Gap 6 mmol/L; Blood Urea Nitrogen 21 mg/dL (7-17); Calcium 8.1 mg/dL (8.4-10.2); Carbon Dioxide 29 mmol/L (22-30); Chloride 109 mmol/L (98-107); Glucose 102 mg/dL (74-99); Non-African American GFR(CKD) >90 (>60 ml/min/1.73 sqM); Potassium 3.7 mmol/L (3.5-5.1); Sodium 144 mmol/L (137-145)
[2021-03-15] MEDS ORDERED: Potassium Replacement Protocol 1 EACH MISC MISCELLANE PRN (05:52)
[2021-03-15] MEDS ORDERED: POTASSIUM CHLORIDE ER 20 MEQ TAB.ER PO SCH (06:00)
[2021-03-15] MEDS: VALPROIC ACID ORAL SOLN 250 MG/5 ML CUP PEG/G-TUBE SCH ×2 (06:19→21:05)
[2021-03-15] MEDS: polyethylene glycoL 3350 17 GM POWD.PACK PEG/G-TUBE SCH (06:20)
[2021-03-15] MEDS: risperiDONE 2 MG TAB PEG/G-TUBE SCH (06:20)
--- NOTE | 2021-03-15 07:53 | XR ---
EXAMINATION TYPE: XR chest 1V portable DATE OF EXAM: 03/15/2021 COMPARISON: Chest x-ray 03/14/2021 HISTORY: Abnormal chest x-ray, tube placement TECHNIQUE: Single frontal view of the chest is obtained. FINDINGS: Extensive dystrophic changes within the shoulders is again noted. There are overlying neto facts. There is no evident pneumothorax or pleural effusion. Patient is rotated. Cardiac mediastinal silhouette is likely stable. Patchy bilateral airspace disease present within the lungs. IMPRESSION: Correlate for pneumonia
[2021-03-15] MEDS: ALBUTEROL HFA INHALER INHALATION SCH ×4 (08:23→20:57)
--- NOTE | 2021-03-15 08:50 | P.PN ---
Subjective Progress Note Date: 03/15/21 This is a 60-year-old female patient who has a history of being mentally challenged, hypertension, hyperlipidemia, depression/anxiety, seizure disorder, mild intermittent chronic bronchial asthma and follows with Dr. Kowalski in our office for the same. She also has a history of chronic constipation with previous colectomy and colostomy with subsequent reversal. She was brought here to the emergency room from [facility] with complaints of abdominal discomfort. She was found to have a large bowel obstruction. She had abdominal distention and episodes of vomiting. The patient herself is unable to give any information due to her developmental disability. Computed tomography scan revealed a large bowel obstruction possibly related to twisting or volvulus versus an anastomosis stricture. She was transferred here for the same. She was taken to the operating room by Dr. Chow last evening. She had undergone colectomy with end colostomy due to massive dilated colon secondary to volvulus. She is seen today in consultation. She remains intubated on the mechanical ventilator. Current settings are assist-control mode. Rate of 12. Tequin 400. FiO2 50%. PEEP of 5. Morning blood gases reveal a pO2 of 61, pCO2 39, pH 7.48. She has propofol on for sedation at 50 mg/kg/m. 0.9 normal saline at 75 ML's per hour. Chest x-ray shows persistent low lung volumes and bilateral m ultiple focal opacities. Small right pleural effusion. She did test positive for COVID-19 infection 03/11/2021. Sputum cultures pending. White count 4.8. Hemoglobin 11.6. Platelets 158. Sodium 142. Potassium 3.8. Creatinine 0.56. Midline surgical dressing dry and intact. Left side colostomy with trace of blood returned thus far. She's been initiated on Zosyn, bronchodilators. She is currently in sinus rhythm. The patient is seen today 03/14/2021 in follow-up in the intensive care unit. She was successfully extubated yesterday. She is currently on 50% Ventimask with O2 saturations in the 90s. He is resting in bed. She has some garbled noises. No clear words are spoken. Chest x-ray reveals low lung volumes with bilateral patchy multifocal airspace opacities. She was positive for COVID-19 this week. Suspect aspiration. Sputum culture pending. White count 6.5. Hemoglobin 10.3. Lymphocytes 0.4. Sodium 145. Potassium 3.8. Creatinine 0.46. AST 26. ALT 12. Albumin 2.6. She is continued on Unasyn. She is on vitamin supplements, Decadron, heparin for DVT prophylaxis. Colostomy has some gas and serosanguineous fluid noted. Hypoactive bowel sounds. \ 2020, the patient is postop day #3 from bowel surgery. She has a colostomy. Colostomy is functional. There is some liquidy material collecting in the back. No abdominal distention. Surgical wound site is dry clean and intact. The PEG tube site is clean. The patient is receiving vital high pro tein at the rate of 20 mL an hour as enteral feeding for nutritional support. Her overall respiratory status is stable. She remains extubated on 4 L of oxygen by nasal cannula. She remains on Unasyn. She remains on Decadron. Chest x-ray showing bilateral pulmonary infiltrates consistent with either aspiration or COVID-19 related pneumonia. Nevertheless, no signs of any respiratory distress. I was informed that the patient has adequate cough at this point in time. She does not communicate. IV fluids are running in the form of 0.9 at the rate of 10 mL an hour. Urine output is no order of 30-50 mL an hour. Hemoglobin stable at 10.5. Her white cell count is at 8.4. Objective - Vital Signs Vital signs: Vital Signs Temp 99.3 F 03/15/21 04:00 Pulse 105 H 03/15/21 08:00 Resp 15 03/15/21 08:00 BP 143/85 03/15/21 08:00 Pulse Ox 97 03/15/21 08:00 Intake & Output 03/14/21 03/15/21 03/15/21 18:59 06:59 18:59 Intake Total 465 470 Output Total 460 490 Balance 5 -20 Weight 60.3 kg 61.3 kg Intake: IV 225 130 0.9 NS 130 Sodium Chloride 0.9% 1, 225 000 ml @ 75 mls/hr IV . [id number] [facility] Rx#:[id number] Intake, IV Titration 100 Amount Ampicillin-Sulbactam 3 gm 100 In Sodium Chloride 0.9% 100 ml @ 200 mls/hr IVPB Q6H [facility] Rx#:[id number] Tube Feeding 80 220 Other 60 120 Output: Urine 460 490 Other: Voiding Method Indwelling Catheter Indwelling Catheter Indwelling Catheter - Exam GENERAL EXAM: Awake, alert, nonverbal 60-year-old female, on 4l02 NC, fairly comfortable in no apparent distress. HEAD: Normocephalic. EYES: Sluggish reaction of pupils, equal size. NOSE: Clear with pink turbinates. THROAT: Oral endotracheal and gastric tubes secured in place. No erythema or exudates. NECK: No masses, no JVD. CHEST: No chest wall deformity. LUNGS: Equal air entry with few scattered rhonchi. CVS: S1 and S2 normal with no audible murmur, regular rhythm. ABDOMEN: Hypoactive bowel sounds. Midline dressing dry and intact. Left colostomy in place with gas and trace serosanguineous drainage. SPINE: No scoliosis or deformity SKIN: No rashes CENTRAL NERVOUS SYSTEM: Alert, tone is normal in all 4 extremities. EXTREMITIES: There is no peripheral edema. No clubbing, no cyanosis. Peripheral pulses are intact. - Labs CBC & Chem 7: 03/15/21 04:25 03/15/21 04:25 Labs: Abnormal Lab Results - Last 24 Hours (Table) 03/15/21 03/15/21 Range/Units 04:25 04:25 RBC 3.12 L (3.80-5.40) m/uL Hgb 10.5 L (11.4-16.0) gm/dL Hct 31.0 L (34.0-46.0) % Lymphocytes # 0.8 L (1.0-4.8) k/uL Chloride 109 H (98-107) mmol/L BUN 21 H (7-17) mg/dL Creatinine 0.42 L (0.52-1.04) mg/dL Glucose 102 H (74-99) mg/dL Calcium 8.1 L (8.4-10.2) mg/dL Microbiology - Last 24 Hours (Table) 03/13/21 00:32 Gram Stain - Preliminary Sputum Sputum Culture - Preliminary Cary albicans Assessment and Plan Plan: 1 Acute abdominal pain secondary to large bowel obstruction with volvulus, status post colectomy with end colostomy. Postoperative day #3. 2 acute hypoxic respiratory failure, likely secondary to combination of aspiration and COVID-19 related pneumonia. The patient is currently on 40s about 2 by nasal cannula. She has been extubated successfully. She remains on Decadron. She remains on Unasyn. 3 CoVID positive on 03/09/2021 at [facility] 4 Previous history of chronic constipation with colectomycolostomy and subsequent reversal 5 History of tardive dyskinesia and mentally challenged, residing in [facility] 6 Dysphagia status post previous PEG tube placement 7 Chronic bilateral shoulder dislocations 8 History of seizures 9 Hypertension 10 Hyperlipidemia 11 Anxiety/depression 12 Mild intermittent chronic bronchial asthma Plan: aspiration precautions Keep the patient on 4 L nasal cannula cannot follow commands for IS Continue Unasyn Continue Decadron, vitamin supplements, heparin for DVT prophylaxis Continue bronchodilators Vital AF feeds per PEG tube, cleared with general surgery Transfer To medical surgical floor We will continue to follow and make further recommendations based on her clinical status
[2021-03-15] MEDS: ZINC SULFATE 220 MG CAP PO SCH (09:58)
[2021-03-15] MEDS: CHOLECALCIFEROL 25 MCG (1000 IU) TABLET PO SCH (09:58)
[2021-03-15] MEDS: ASCORBIC ACID 500 MG TAB PO SCH (09:58)
[2021-03-15] MEDS: DEXAMETHASONE SOD PHOSPHATE 10 MG/ML 1 ML VIAL IV SCH (09:58)
[2021-03-15] MEDS: PANTOPRAZOLE 40 MG/10 ML VIAL IV SCH (09:59)
--- NOTE | 2021-03-15 10:37 | P.PN ---
Subjective Progress Note Date: 03/15/21 Principal diagnosis: Volvulus Patient remains in the ICU. She does not appear to be any discomfort. Respiratory status is improved. She is being transferred to the floor today. T-max 99.8. White blood cell count is normal. Patient's tolerating tube feeds. Colostomy with some bowel function noted. Objective - Vital Signs Vital signs: Vital Signs Temp 99.3 F 03/15/21 04:00 Pulse 105 H 03/15/21 08:00 Resp 15 03/15/21 08:00 BP 143/85 03/15/21 08:00 Pulse Ox 97 03/15/21 08:00 Intake & Output 03/14/21 03/15/21 03/15/21 18:59 06:59 18:59 Intake Total 465 470 Output Total 460 490 Balance 5 -20 Weight 60.3 kg 61.3 kg Intake: IV 225 130 0.9 NS 130 Sodium Chloride 0.9% 1, 225 000 ml @ 75 mls/hr IV . [id number] [facility] Rx#:[id number] Intake, IV Titration 100 Amount Ampicillin-Sulbactam 3 gm 100 In Sodium Chloride 0.9% 100 ml @ 200 mls/hr IVPB Q6H [facility] Rx#:[id number] Tube Feeding 80 220 Other 60 120 Output: Urine 460 490 Other: Voiding Method Indwelling Catheter Indwelling Catheter Indwelling Catheter - Exam Abdomen: Soft, nondistended, dressing clean and dry, ostomy functioning - Labs CBC & Chem 7: 03/15/21 04:25 03/15/21 04:25 Labs: Abnormal Lab Results - Last 24 Hours (Table) 03/15/21 03/15/21 Range/Units 04:25 04:25 RBC 3.12 L (3.80-5.40) m/uL Hgb 10.5 L (11.4-16.0) gm/dL Hct 31.0 L (34.0-46.0) % Lymphocytes # 0.8 L (1.0-4.8) k/uL Chloride 109 H (98-107) mmol/L BUN 21 H (7-17) mg/dL Creatinine 0.42 L (0.52-1.04) mg/dL Glucose 102 H (74-99) mg/dL Calcium 8.1 L (8.4-10.2) mg/dL Microbiology - Last 24 Hours (Table) 03/13/21 00:32 Gram Stain - Preliminary Sputum Sputum Culture - Preliminary Cary albicans Assessment and Plan (1) Volvulus Narrative/Plan: Continue tube feeds. May transfer to floor. Continue IV antibiotics. Monitor bowel function. Current Visit: Yes Status: Acute Code(s): K56.2 - VOLVULUS SNOMED Code(s): 9129070
--- NOTE | 2021-03-15 10:48 | P.PN ---
Subjective Progress Note Date: 03/15/21 Patient's overall condition improved significantly over the last 24 hours. She is currently on 2 L of oxygen. She appeared more comfortable. She is having output through the ostomy. No acute events overnight reported by nursing staff. Objective - Vital Signs Vital signs: Vital Signs Temp 99.3 F 03/15/21 04:00 Pulse 105 H 03/15/21 08:00 Resp 15 03/15/21 08:00 BP 143/85 03/15/21 08:00 Pulse Ox 97 03/15/21 08:00 Intake & Output 03/14/21 03/15/21 03/15/21 18:59 06:59 18:59 Intake Total 465 470 Output Total 460 490 Balance 5 -20 Weight 60.3 kg 61.3 kg Intake: IV 225 130 0.9 NS 130 Sodium Chloride 0.9% 1, 225 000 ml @ 75 mls/hr IV . [id number] [facility] Rx#:[id number] Intake, IV Titration 100 Amount Ampicillin-Sulbactam 3 gm 100 In Sodium Chloride 0.9% 100 ml @ 200 mls/hr IVPB Q6H [facility] Rx#:[id number] Tube Feeding 80 220 Other 60 120 Output: Urine 460 490 Other: Voiding Method Indwelling Catheter Indwelling Catheter Indwelling Catheter - Exam General: The patient is awake and alert, in no distress Eye: there is normal conjunctiva bilaterally. Neck: The neck is supple, there is no JVD. Cardiovascular: Normal S1-S2, no S3-S4, no murmurs. Respiratory: Lungs with scattered rhonchi and rales Gastrointestinal: Abdomen is soft, PEG tube in place. Colostomy with some serous output Musculoskeletal: There is no pedal edema. Skin: Skin is warm and dry - Labs CBC & Chem 7: 03/15/21 04:25 03/15/21 04:25 Labs: Abnormal Lab Results - Last 24 Hours (Table) 03/15/21 03/15/21 Range/Units 04:25 04:25 RBC 3.12 L (3.80-5.40) m/uL Hgb 10.5 L (11.4-16.0) gm/dL Hct 31.0 L (34.0-46.0) % Lymphocytes # 0.8 L (1.0-4.8) k/uL Chloride 109 H (98-107) mmol/L BUN 21 H (7-17) mg/dL Creatinine 0.42 L (0.52-1.04) mg/dL Glucose 102 H (74-99) mg/dL Calcium 8.1 L (8.4-10.2) mg/dL Microbiology - Last 24 Hours (Table) 03/13/21 00:32 Gram Stain - Preliminary Sputum Sputum Culture - Preliminary Cary albicans Presumptive Staph aureus Assessment and Plan Assessment: This is a 60-year-old female with past medical history noted below significant for developmental delay chronically nonverbal that presented to the emergency room as a transfer from outside hospital for further evaluation of bowel obstru ction. 1. Large bowel obstruction: Status post partial colectomy with colostomy placement postoperative day #3. Postoperative care per general surgery. Patient has chronic PEG tube which is currently getting tube feeds and tolerating with no problem 2. COVID-19 pneumonia: With positive screening test at outside hospital. Started on Decadron 6 mg daily day #3. Vitamin C, vitamin D, melatonin, and zinc supplement ordered. 3. Acute hypoxic respiratory failure, improved currently on 2 L of oxygen 4. COPD exacerbation, continue bronchodilators 5. Chronic medical problems: Developmental today chronically nonverbal, history of seizure disorder, COPD, 6. DVT prophylaxis with subcu heparin Today, I reviewed her medication list and lab work results. patient may be transferred to [facility]. Appreciate consultant nurse's recommendations. Repeat lab work in the morning.
[2021-03-15] MEDS: LORazepam 0.5 MG TAB PEG/G-TUBE SCH ×2 (13:13→16:42)
--- NOTE | 2021-03-15 17:34 | US ---
EXAMINATION TYPE: US venous doppler duplex UE LT DATE OF EXAM: 03/15/2021 COMPARISON: NONE CLINICAL HISTORY: edema left arm . Very limited exam exam due to patient altered mental status, movem ent, and talking. Patient was not cooperative and would not let me move her arm away from body SIDE PERFORMED: Left Left Arm: Negative for DVT as visualized. Very limited exam IMPRESSION: Venous flow is demonstrated in the jugular and subclavian and axillary and brachial veins. No evidenc e of deep vein thrombosis. Limited exam.
[2021-03-15] MEDS: ACETAMINOPHEN TAB 325 MG TAB PO PRN ×2 (18:28→23:53)
[2021-03-15] MEDS: guaiFENesin 600 MG TABLET.ER PO SCH (21:07)
[2021-03-15] MEDS: MELATONIN 5 MG TABLET PO SCH (21:08)
[2021-03-16] MEDS: HYDROmorphone 1 MG/ML 1 ML SYRINGE IVP PRN ×2 (02:57→22:33)
[2021-03-16] MEDS: AMPICILLIN-SULBACTAM 3 GM in SODIUM CHLORIDE 0.9% 100 ML IVPB SCH ×3 (05:48→17:58)
[2021-03-16] MEDS: ALBUTEROL HFA INHALER INHALATION SCH ×4 (07:55→19:44)
[2021-03-16] MEDS: PANTOPRAZOLE 40 MG/10 ML VIAL IV SCH (09:03)
[2021-03-16] MEDS: CHOLECALCIFEROL 25 MCG (1000 IU) TABLET PO SCH (09:03)
[2021-03-16] MEDS: HEPARIN SODIUM,PORCINE/PF 5,000 UNIT/0.5 ML SYRINGE SQ SCH ×2 (09:03→15:23)
[2021-03-16] MEDS: polyethylene glycoL 3350 17 GM POWD.PACK PEG/G-TUBE SCH (09:03)
[2021-03-16] MEDS: DEXAMETHASONE SOD PHOSPHATE 10 MG/ML 1 ML VIAL IV SCH (09:04)
[2021-03-16] MEDS: VALPROIC ACID ORAL SOLN 250 MG/5 ML CUP PEG/G-TUBE SCH ×2 (09:05→22:30)
[2021-03-16] MEDS: ASCORBIC ACID 500 MG TAB PO SCH (09:05)
[2021-03-16] MEDS: ZINC SULFATE 220 MG CAP PO SCH (09:05)
[2021-03-16] MEDS: risperiDONE 2 MG TAB PEG/G-TUBE SCH (09:14)
--- NOTE | 2021-03-16 10:25 | P.PN ---
Subjective Progress Note Date: 03/16/21 Patient is been having issues with her Peg tube overnight. She is currently on 2-3 L of oxygen by nasal cannula. No acute events overnight reported by nursing staff. Objective - Vital Signs Vital signs: Vital Signs Temp 98.3 F 03/16/21 02:00 Pulse 93 03/16/21 02:00 Resp 19 03/16/21 02:00 BP 152/95 03/16/21 02:00 Pulse Ox 96 03/16/21 02:00 Intake & Output 03/15/21 03/16/21 03/16/21 18:59 06:59 18:59 Output Total 900 400 Balance -900 -400 Weight 63.5 kg Output: Urine 900 400 Other: Voiding Method Indwelling Catheter Indwelling Catheter - Exam General: The patient is awake and alert, in no distress Eye: there is normal conjunctiva bilaterally. Neck: The neck is supple, there is no JVD. Cardiovascular: Normal S1-S2, no S3-S4, no murmurs. Respiratory: Lungs with scattered rhonchi and rales Gastrointestinal: Abdomen is soft, PEG tube in place. Colostomy with some serous output Musculoskeletal: There is no pedal edema. Skin: Skin is warm and dry - Labs CBC & Chem 7: 03/15/21 04:25 03/15/21 04:25 Labs: Microbiology - Last 24 Hours (Table) 03/13/21 00:32 Gram Stain - Preliminary Sputum Sputum Culture - Preliminary Cary albicans Presumptive Staph aureus Assessment and Plan Assessment: This is a 60-year-old female with past medical history noted below significant for developmental delay chronically nonverbal that presented to the emergency room as a transfer from outside hospital for further evaluation of bowel obstruction. 1. Large bowel obstruction: Status post partial colectomy with colostomy placement. Postoperative care per general surgery. Patient has chronic PEG tube which is currently getting tube feeds and tolerating with no problem 2. COVID-19 pneumonia: With positive screening test at outside hospital. Started on Decadron 6 mg daily day #4. Vitamin C, vitamin D, melatonin, and zinc supplement ordered. 3. Acute hypoxic respiratory failure, improved currently on 2 L of oxygen 4. COPD exacerbation, continue bronchodilators. Mucinex as needed 5. Chronic medical problems: Developmental delay chronically nonverbal, history of seizure disorder, COPD, 6. DVT prophylaxis with subcu heparin Today, I reviewed her medication list and lab work results. Appreciate executive search consultant's recommendations. Repeat lab work in the morning. Discharge planning on Wednesday
--- NOTE | 2021-03-16 10:31 | P.PN ---
Subjective Progress Note Date: 03/16/21 Principal diagnosis: Volvulus Patient transferred out of the ICU yesterday. She did have a fever last night of 101.1. She is having ostomy function. Her feeding tube was clogged this morning. She seems agitated. White blood cell count 8.4. Objective - Vital Signs Vital signs: Vital Signs Temp 98.3 F 03/16/21 02:00 Pulse 93 03/16/21 02:00 Resp 19 03/16/21 02:00 BP 152/95 03/16/21 02:00 Pulse Ox 96 03/16/21 02:00 Intake & Output 03/15/21 03/16/21 03/16/21 18:59 06:59 18:59 Output Total 900 400 Balance -900 -400 Weight 63.5 kg Output: Urine 900 400 Other: Voiding Method Indwelling Catheter Indwelling Catheter - Exam Abdomen: Soft, nondistended, mild tenderness, dressing clean and dry, ostomy functioning, PEG tube removed and occlusion evacuated-PEG tube then replaced - Labs CBC & Chem 7: 03/15/21 04:25 03/15/21 04:25 Labs: Microbiology - Last 24 Hours (Table) 03/13/21 00:32 Gram Stain - Preliminary Sputum Sputum Culture - Preliminary Cary albicans Presumptive Staph aureus Assessment and Plan (1) Volvulus Narrative/Plan: Patient with fever last night. She does seem agitated. Resume tube feeds increasing to goal. Spoke with the hospitalist. They were considering neurology consultation. Current Visit: Yes Status: Acute Code(s): K56.2 - VOLVULUS SNOMED Code(s): 3608246
[2021-03-16] MEDS: ACETAMINOPHEN TAB 325 MG TAB PO PRN ×2 (10:48→22:30)
[2021-03-16] MEDS: guaiFENesin SYRUP 100MG/5ML 200 MG/10 ML CUP PO SCH ×4 (10:48→22:30)
--- NOTE | 2021-03-16 11:03 | P.PN ---
Subjective Progress Note Date: 03/16/21 This is a 60-year-old female patient who has a history of being mentally challenged, hypertension, hyperlipidemia, depression/anxiety, seizure disorder, mild intermittent chronic bronchial asthma and follows with Dr. Kowalski in our office for the same. She also has a history of chronic constipation with previous colectomy and colostomy with subsequent reversal. She was brought here to the emergency room from [facility] with complaints of abdominal discomfort. She was found to have a large bowel obstruction. She had abdominal distention and episodes of vomiting. The patient herself is unable to give any information due to her developmental disability. Computed tomography scan revealed a large bowel obstruction possibly related to twisting or volvulus versus an anastomosis stricture. She was transferred here for the same. She was taken to the operating room by Dr. Chow last evening. She had undergone colectomy with end colostomy due to massive dilated colon secondary to volvulus. She is seen today in consultation. She remains intubated on the mechanical ventilator. Current settings are assist-control mode. Rate of 12. Tequin 400. FiO2 50%. PEEP of 5. Morning blood gases reveal a pO2 of 61, pCO2 39, pH 7.48. She has propofol on for sedation at 50 mg/kg/m. 0.9 normal saline at 75 ML's per hour. Chest x-ray shows persistent low lung volumes and bilateral m ultiple focal opacities. Small right pleural effusion. She did test positive for COVID-19 infection 03/11/2021. Sputum cultures pending. White count 4.8. Hemoglobin 11.6. Platelets 158. Sodium 142. Potassium 3.8. Creatinine 0.56. Midline surgical dressing dry and intact. Left side colostomy with trace of blood returned thus far. She's been initiated on Zosyn, bronchodilators. She is currently in sinus rhythm. The patient is seen today 03/14/2021 in follow-up in the intensive care unit. She was successfully extubated yesterday. She is currently on 50% Ventimask with O2 saturations in the 90s. He is resting in bed. She has some garbled noises. No clear words are spoken. Chest x-ray reveals low lung volumes with bilateral patchy multifocal airspace opacities. She was positive for COVID-19 this week. Suspect aspiration. Sputum culture pending. White count 6.5. Hemoglobin 10.3. Lymphocytes 0.4. Sodium 145. Potassium 3.8. Creatinine 0.46. AST 26. ALT 12. Albumin 2.6. She is continued on Unasyn. She is on vitamin supplements, Decadron, heparin for DVT prophylaxis. Colostomy has some gas and serosanguineous fluid noted. Hypoactive bowel sounds. \ 2020, the patient is postop day #3 from bowel surgery. She has a colostomy. Colostomy is functional. There is some liquidy material collecting in the back. No abdominal distention. Surgical wound site is dry clean and intact. The PEG tube site is clean. The patient is receiving vital high pro tein at the rate of 20 mL an hour as enteral feeding for nutritional support. Her overall respiratory status is stable. She remains extubated on 4 L of oxygen by nasal cannula. She remains on Unasyn. She remains on Decadron. Chest x-ray showing bilateral pulmonary infiltrates consistent with either aspiration or COVID-19 related pneumonia. Nevertheless, no signs of any respiratory distress. I was informed that the patient has adequate cough at this point in time. She does not communicate. IV fluids are running in the form of 0.9 at the rate of 10 mL an hour. Urine output is no order of 30-50 mL an hour. Hemoglobin stable at 10.5. Her white cell count is at 8.4. 03/16/2021 the patient is postop day #4. She does have upper airway secretions and she has a congested cough. Unfortunately, she is unable to do adequate pulmonate toileting cause of her underlying significant neurologic damage. Her colostomy is functional. There is some stool output and gas. The patient is receiving enteral feeding for nutritional support via a PEG tube. Active site is dry clean and intact. No abdominal pain. No abdominal distention. Surgical wound site is dry clean and intact. No signs of any significant respiratory distress. She'll occasionally moans. IV fluids are currently running at KVO. She has adequate urine output. Labs from today showed a white cell count of 8.4 with a hemoglobin of 10.5. She does have lymphopenia related to her COVID-19 infection. BUN is 21 with a creatinine of 0.4. Sodium is at 144. She is afebrile. Slightly tachycardic. The pack to was clogged today and this was unclogged by showing. She is currently on tube feeds which is currently running at 50 mL an hour of vital AF 1.2 Objective - Vital Signs Vital signs: Vital Signs Temp 100.9 F H 03/16/21 10:44 Pulse 117 H 03/16/21 10:44 Resp 22 03/16/21 10:44 BP 196/76 03/16/21 10:44 Pulse Ox 96 03/16/21 02:00 Intake & Output 03/15/21 03/16/21 03/16/21 18:59 06:59 18:59 Output Total 900 400 Balance -900 -400 Weight 63.5 kg Output: Urine 900 400 Other: Voiding Method Indwelling Catheter Indwelling Catheter - Exam GENERAL EXAM: Awake, alert, nonverbal 60-year-old female, on 4l 02 NC, fairly comfortable in no apparent distress. HEAD: Normocephalic. EYES: Sluggish reaction of pupils, equal size. NOSE: Clear with pink turbinates. THROAT: Oral endotracheal and gastric tubes secured in place. No erythema or exudates. NECK: No masses, no JVD. CHEST: No chest wall deformity. LUNGS: Equal air entry with few scattered rhonchi. CVS: S1 and S2 normal with no audible murmur, regular rhythm. ABDOMEN: Hypoactive bowel sounds. Midline dressing dry and intact. Left colostomy in place with gas and trace serosanguineous drainage. SPINE: No scoliosis or deformity SKIN: No rashes CENTRAL NERVOUS SYSTEM: Alert, tone is normal in all 4 extremities. EXTREMITIES: There is no peripheral edema. No clubbing, no cyanosis. Peripheral pulses are intact. - Labs CBC & Chem 7: 03/15/21 04:25 03/15/21 04:25 Labs: Microbiology - Last 24 Hours (Table) 03/13/21 00:32 Gram Stain - Preliminary Sputum Sputum Culture - Preliminary Cary albicans Presumptive Staph aureus Assessment and Plan Plan: 1 Acute abdominal pain secondary to large bowel obstruction with volvulus, status post colectomy with end colostomy. Postoperative day #4 2 acute hypoxic respiratory failure, likely secondary to combination of aspiration and COVID-19 related pneumonia. The patient is currently on 4l by nasal cannula. She has been extubated successfully. She remains on Decadron. She remains on Unasyn. 3 CoVID positive on 03/09/2021 at [facility] 4 Previous history of chronic constipation with colectomycolostomy and subsequent reversal 5 History of tardive dyskinesia and mentally challenged, residing in [facility] 6 Dysphagia status post previous PEG tube placement 7 Chronic bilateral shoulder dislocations 8 History of seizures 9 Hypertension 10 Hyperlipidemia 11 Anxiety/depression 12 Mild intermittent chronic bronchial asthma Plan: Aspiration precautions Keep the patient on 4 L nasal cannula cannot follow commands for IS Continue Unasyn Continue Decadron, vitamin supplements, heparin for DVT prophylaxis Continue bronchodilators Vital AF feeds per PEG tube, cleared with general surgery, she'll feeds have been advanced and the patient is currently on 40 mL an hour and she has adequate functionality of her colostomy site. She is producing stool. Surgical with that is dry clean and intact.
[2021-03-16] MEDS: guaiFENesin 600 MG TABLET.ER PO SCH (12:07)
[2021-03-16] MEDS: LORazepam 0.5 MG TAB PEG/G-TUBE SCH ×2 (12:32→15:23)
[2021-03-16] MEDS: MELATONIN 5 MG TABLET PO SCH (22:30)
[2021-03-17] MEDS: AMPICILLIN-SULBACTAM 3 GM in SODIUM CHLORIDE 0.9% 100 ML IVPB SCH ×4 (00:27→17:34)
[2021-03-17] MEDS: HEPARIN SODIUM,PORCINE/PF 5,000 UNIT/0.5 ML SYRINGE SQ SCH ×3 (00:28→15:57)
[2021-03-17] MEDS: guaiFENesin SYRUP 100MG/5ML 200 MG/10 ML CUP PO SCH ×6 (01:34→20:39)
[2021-03-17] MEDS: ALBUTEROL HFA INHALER INHALATION SCH ×4 (08:25→20:54)
[2021-03-17 08:50] LABS: African American GFR (CKD) >90 (>60 ml/min/1.73 sqM); Anion Gap 2 mmol/L; Blood Urea Nitrogen 23 mg/dL (7-17); Calcium 7.5 mg/dL (8.4-10.2); Carbon Dioxide 39 mmol/L (22-30); Chloride 103 mmol/L (98-107); Glucose 116 mg/dL (74-99); Non-African American GFR(CKD) >90 (>60 ml/min/1.73 sqM); Potassium 3.6 mmol/L (3.5-5.1); Sodium 144 mmol/L (137-145)
[2021-03-17] MEDS: risperiDONE 2 MG TAB PEG/G-TUBE SCH (09:04)
[2021-03-17] MEDS: PANTOPRAZOLE 40 MG/10 ML VIAL IV SCH (09:04)
[2021-03-17] MEDS: ASCORBIC ACID 500 MG TAB PO SCH (09:04)
[2021-03-17] MEDS: ZINC SULFATE 220 MG CAP PO SCH (09:04)
[2021-03-17] MEDS: polyethylene glycoL 3350 17 GM POWD.PACK PEG/G-TUBE SCH (09:04)
[2021-03-17] MEDS: CHOLECALCIFEROL 25 MCG (1000 IU) TABLET PO SCH (09:04)
[2021-03-17] MEDS: VALPROIC ACID ORAL SOLN 250 MG/5 ML CUP PEG/G-TUBE SCH ×2 (09:05→20:39)
[2021-03-17] MEDS: DEXAMETHASONE SOD PHOSPHATE 10 MG/ML 1 ML VIAL IV SCH (09:13)
--- NOTE | 2021-03-17 09:54 | P.PN ---
Subjective Progress Note Date: 03/17/21 Principal diagnosis: Volvulus Patient without new complaints. She seems less agitated than yesterday. T-max 100.9. Tolerating tube feeds at goal. Ostomy is functioning well. Objective - Vital Signs Vital signs: Vital Signs Temp 98.9 F 03/17/21 06:13 Pulse 89 03/17/21 06:13 Resp 19 03/17/21 01:52 BP 143/75 03/17/21 06:13 Pulse Ox 97 03/17/21 06:13 Intake & Output 03/16/21 03/17/21 03/17/21 18:59 06:59 18:59 Intake Total 750 Output Total 840 800 Balance -840 -50 Weight 65 kg Intake: Tube Feeding 660 Other 90 Output: Urine 840 500 Uretheral (Torres) 540 Stool 300 Other: Voiding Method Indwelling Catheter Indwelling Catheter # Bowel Movements 2 - Exam Abdomen: Soft, nondistended, mild incisional tenderness, ostomy functioning - Labs CBC & Chem 7: 03/15/21 04:25 03/17/21 07:55 Labs: Abnormal Lab Results - Last 24 Hours (Table) 03/13/21 03/17/21 Range/Units 10:43 07:55 Carbon Dioxide 39 H (22-30) mmol/L BUN 23 H (7-17) mg/dL Creatinine 0.32 L (0.52-1.04) mg/dL Glucose 116 H (74-99) mg/dL Calcium 7.5 L (8.4-10.2) mg/dL Coronavirus (PCR) Presumptive Positive A (Not Detected) Microbiology - Last 24 Hours (Table) 03/15/21 18:38 Blood Culture - Preliminary Blood No Growth after 24 hours 03/13/21 00:32 Gram Stain - Preliminary Sputum Sputum Culture - Preliminary Cary albicans Presumptive Staph aureus Assessment and Plan (1) Volvulus Narrative/Plan: Patient doing fairly well. Check morning labs. Continue tube feeds at goal. Continue antibiotics. Current Visit: Yes Status: Acute Code(s): K56.2 - VOLVULUS SNOMED Code(s): 1716609
--- NOTE | 2021-03-17 10:18 | P.PN ---
Subjective Progress Note Date: 03/17/21 This is a 60-year-old female patient who has a history of being mentally challenged, hypertension, hyperlipidemia, depression/anxiety, seizure disorder, mild intermittent chronic bronchial asthma and follows with Dr. Kowalski in our office for the same. She also has a history of chronic constipation with previous colectomy and colostomy with subsequent reversal. She was brought here to the emergency room from [facility] with complaints of abdominal discomfort. She was found to have a large bowel obstruction. She had abdominal distention and episodes of vomiting. The patient herself is unable to give any information due to her developmental disability. Computed tomography scan revealed a large bowel obstruction possibly related to twisting or volvulus versus an anastomosis stricture. She was transferred here for the same. She was taken to the operating room by Dr. Chow last evening. She had undergone colectomy with end colostomy due to massive dilated colon secondary to volvulus. She is seen today in consultation. She remains intubated on the mechanical ventilator. Current settings are assist-control mode. Rate of 12. Tequin 400. FiO2 50%. PEEP of 5. Morning blood gases reveal a pO2 of 61, pCO2 39, pH 7.48. She has propofol on for sedation at 50 mg/kg/m. 0.9 normal saline at 75 ML's per hour. Chest x-ray shows persistent low lung volumes and bilateral m ultiple focal opacities. Small right pleural effusion. She did test positive for COVID-19 infection 03/11/2021. Sputum cultures pending. White count 4.8. Hemoglobin 11.6. Platelets 158. Sodium 142. Potassium 3.8. Creatinine 0.56. Midline surgical dressing dry and intact. Left side colostomy with trace of blood returned thus far. She's been initiated on Zosyn, bronchodilators. She is currently in sinus rhythm. The patient is seen today 03/14/2021 in follow-up in the intensive care unit. She was successfully extubated yesterday. She is currently on 50% Ventimask with O2 saturations in the 90s. He is resting in bed. She has some garbled noises. No clear words are spoken. Chest x-ray reveals low lung volumes with bilateral patchy multifocal airspace opacities. She was positive for COVID-19 this week. Suspect aspiration. Sputum culture pending. White count 6.5. Hemoglobin 10.3. Lymphocytes 0.4. Sodium 145. Potassium 3.8. Creatinine 0.46. AST 26. ALT 12. Albumin 2.6. She is continued on Unasyn. She is on vitamin supplements, Decadron, heparin for DVT prophylaxis. Colostomy has some gas and serosanguineous fluid noted. Hypoactive bowel sounds. \ 2020, the patient is postop day #3 from bowel surgery. She has a colostomy. Colostomy is functional. There is some liquidy material collecting in the back. No abdominal distention. Surgical wound site is dry clean and intact. The PEG tube site is clean. The patient is receiving vital high pro tein at the rate of 20 mL an hour as enteral feeding for nutritional support. Her overall respiratory status is stable. She remains extubated on 4 L of oxygen by nasal cannula. She remains on Unasyn. She remains on Decadron. Chest x-ray showing bilateral pulmonary infiltrates consistent with either aspiration or COVID-19 related pneumonia. Nevertheless, no signs of any respiratory distress. I was informed that the patient has adequate cough at this point in time. She does not communicate. IV fluids are running in the form of 0.9 at the rate of 10 mL an hour. Urine output is no order of 30-50 mL an hour. Hemoglobin stable at 10.5. Her white cell count is at 8.4. 03/16/2021 the patient is postop day #4. She does have upper airway secretions and she has a congested cough. Unfortunately, she is unable to do adequate pulmonate toileting cause of her underlying significant neurologic damage. Her colostomy is functional. There is some stool output and gas. The patient is receiving enteral feeding for nutritional support via a PEG tube. Active site is dry clean and intact. No abdominal pain. No abdominal distention. Surgical wound site is dry clean and intact. No signs of any significant respiratory distress. She'll occasionally moans. IV fluids are currently running at KVO. She has adequate urine output. Labs from today showed a white cell count of 8.4 with a hemoglobin of 10.5. She does have lymphopenia related to her COVID-19 infection. BUN is 21 with a creatinine of 0.4. Sodium is at 144. She is afebrile. Slightly tachycardic. The pack to was clogged today and this was unclogged by showing. She is currently on tube feeds which is currently running at 50 mL an hour of vital AF 1.2 On today's evaluation of 03/17/2021 the patient is postop day #5. No new issues. Receiving enteral feeding with the vital AF at the rate of 50 mL an hour. Electrolytes are stable. No respiratory issues. Ostomy is functional. Surgical wound site is functional. Active site is clean. No aspiration. No respiratory difficulties. He remains on Unasyn. Remains on Decadron. He is having a low-grade fever. Unable to perform an incentive spirometer use. Objective - Vital Signs Vital signs: Vital Signs Temp 97.9 F 03/17/21 10:09 Pulse 86 03/17/21 10:09 Resp 16 03/17/21 10:09 BP 146/72 03/17/21 10:09 Pulse Ox 97 03/17/21 10:09 Intake & Output 03/16/21 03/17/21 03/17/21 18:59 06:59 18:59 Intake Total 750 Output Total 840 800 Balance -840 -50 Weight 65 kg Intake: Tube Feeding 660 Other 90 Output: Urine 840 500 Uretheral (Torres) 540 Stool 300 Other: Voiding Method Indwelling Catheter Indwelling Catheter # Bowel Movements 2 - Exam GENERAL EXAM: Awake, alert, nonverbal 60-year-old female, on 4l 02 NC, fairly comfortable in no apparent distress. HEAD: Normocephalic. EYES: Sluggish reaction of pupils, equal size. NOSE: Clear with pink turbinates. THROAT: Oral endotracheal and gastric tubes secured in place. No erythema or exudates. NECK: No masses, no JVD. CHEST: No chest wall deformity. LUNGS: Equal air entry with few scattered rhonchi. CVS: S1 and S2 normal with no audible murmur, regular rhythm. ABDOMEN: Hypoactive bowel sounds. Midline dressing dry and intact. Left colostomy in place with gas and trace serosanguineous drainage. SPINE: No scoliosis or deformity SKIN: No rashes CENTRAL NERVOUS SYSTEM: Alert, tone is normal in all 4 extremities. EXTREMITIES: There is no peripheral edema. No clubbing, no cyanosis. Peripheral pulses are intact. - Labs CBC & Chem 7: 03/15/21 04:25 03/17/21 07:55 Labs: Abnormal Lab Results - Last 24 Hours (Table) 03/13/21 03/17/21 Range/Units 10:43 07:55 Carbon Dioxide 39 H (22-30) mmol/L BUN 23 H (7-17) mg/dL Creatinine 0.32 L (0.52-1.04) mg/dL Glucose 116 H (74-99) mg/dL Calcium 7.5 L (8.4-10.2) mg/dL Coronavirus (PCR) Presumptive Positive A (Not Detected) Microbiology - Last 24 Hours (Table) 03/15/21 18:38 Blood Culture - Preliminary Blood No Growth after 24 hours 03/13/21 00:32 Gram Stain - Preliminary Sputum Sputum Culture - Preliminary Cary albicans Presumptive Staph aureus Assessment and Plan Plan: 1 Acute abdominal pain secondary to large bowel obstruction with volvulus, status post colectomy with end colostomy. Postoperative day #5 2 acute hypoxic respiratory failure, likely secondary to combination of aspiration and COVID-19 related pneumonia. The patient is currently on 4l by nasal cannula. She has been extubated successfully. She remains on Decadron. She remains on Unasyn. 3 CoVID positive on 03/09/2021 at [facility] 4 Previous history of chronic constipation with colectomycolostomy and subsequent reversal 5 History of tardive dyskinesia and mentally challenged, residing in [facility] 6 Dysphagia status post previous PEG tube placement 7 Chronic bilateral shoulder dislocations 8 History of seizures 9 Hypertension 10 Hyperlipidemia 11 Anxiety/depression 12 Mild intermittent chronic bronchial asthma Plan: Aspiration precautions Keep the patient on 4 L nasal cannula cannot follow commands for IS Continue Unasyn Continue Decadron, vitamin supplements, heparin for DVT prophylaxis Continue bronchodilators Vital AF feeds per PEG tube, cleared with general surgery, she'll feeds have been advanced and the patient is currently on 40 mL an hour and she has adequate functionality of her colostomy site. She is producing stool. Surgical with that is dry clean and intact. Improving slowly and she has no issues for now and will FU
--- NOTE | 2021-03-17 11:10 | P.PN ---
Subjective Progress Note Date: 03/17/21 Patient is awake and alert today. She appeared more comfortable compared to yesterday. She is currently on 4 L of oxygen via nasal cannula. Her lung sounds improved compared to yesterday. She is having good output in the ostomy. No acute events overnight reported by nursing staff. Objective - Vital Signs Vital signs: Vital Signs Temp 97.9 F 03/17/21 10:09 Pulse 86 03/17/21 10:09 Resp 16 03/17/21 10:09 BP 146/72 03/17/21 10:09 Pulse Ox 97 03/17/21 10:09 Intake & Output 03/16/21 03/17/21 03/17/21 18:59 06:59 18:59 Intake Total 750 Output Total 840 800 Balance -840 -50 Weight 65 kg Intake: Tube Feeding 660 Other 90 Output: Urine 840 500 Uretheral (Torres) 540 Stool 300 Other: Voiding Method Indwelling Catheter Indwelling Catheter # Bowel Movements 2 - Exam General: The patient is awake and alert, in no distress Eye: there is normal conjunctiva bilaterally. Neck: The neck is supple, there is no JVD. Cardiovascular: Normal S1-S2, no S3-S4, no murmurs. Respiratory: Lungs with scattered rhonchi Gastrointestinal: Abdomen is soft, PEG tube in place. Colostomy with some serous output Musculoskeletal: There is no pedal edema. Skin: Skin is warm and dry - Labs CBC & Chem 7: 03/15/21 04:25 03/17/21 07:55 Labs: Abnormal Lab Results - Last 24 Hours (Table) 03/13/21 03/17/21 Range/Units 10:43 07:55 Carbon Dioxide 39 H (22-30) mmol/L BUN 23 H (7-17) mg/dL Creatinine 0.32 L (0.52-1.04) mg/dL Glucose 116 H (74-99) mg/dL Calcium 7.5 L (8.4-10.2) mg/dL Coronavirus (PCR) Presumptive Positive A (Not Detected) Microbiology - Last 24 Hours (Table) 03/13/21 00:32 Gram Stain - Final Sputum Sputum Culture - Final Cary albicans Staphylococcus aureus 03/15/21 18:38 Blood Culture - Preliminary Blood No Growth after 24 hours Assessment and Plan Assessment: This is a 60-year-old female with past medical history noted below significant for developmental delay chronically nonverbal that presented to the emergency room as a transfer from outside hospital for further evaluation of bowel obstruction. 1. Large bowel obstruction: Status post partial colectomy with colostomy placement. Postoperative care per general surgery. Patient has chronic PEG tube which is currently getting tube feeds and tolerating with no problem 2. COVID-19 pneumonia: With positive screening test at outside hospital. Started on Decadron 6 mg daily day #5. Vitamin C, vitamin D, melatonin, and zinc supplement ordered. 3. Acute hypoxic respiratory failure, improved currently on 4 L of oxygen 4. COPD exacerbation, continue bronchodilators. Mucinex as needed 5. Chronic medical problems: Developmental delay chronically nonverbal, history of seizure disorder, COPD, 6. DVT prophylaxis with subcu heparin Today, I reviewed her medication list and lab work results. Appreciate help desk consultant's recommendations. Repeat lab work in the morning. Patient has been on IV Unasyn since admission. We'll discontinue antibiotics tomorrow. Discharge planning on Wednesday awaiting correctional casework specialist for placement
[2021-03-17] MEDS: LORazepam 0.5 MG TAB PEG/G-TUBE SCH ×2 (12:07→15:57)
[2021-03-17 12:40] LABS: Basophils # (A) 0.02 X 10*3/uL (0.00-0.10); Basophils % (A) 0.3 %; Eosinophils # (A) 0 X 10*3/uL (0.04-0.35); Eosinophils % (A) 0 %; HCT 33.7 % (37.2-46.3); HGB 10.7 g/dL (12.0-15.0); Lymphocytes # (A) 0.84 X 10*3/uL (0.90-5.00); Lymphocytes % (A) 10.9 %; MCH 31.7 pg (27.0-32.0); MCHC 31.8 g/dL (32.0-37.0); MCV 99.7 fL (80.0-97.0); Mean Platelet Volume 11.4 fL (9.5-12.2); Monocytes # (A) 0.64 X 10*3/uL (0.20-1.00); Monocytes % (A) 8.3 %; Neutrophils # (A) 6.06 X 10*3/uL (1.80-7.70); Neutrophils % (A) 78.6 %; Platelet Count 204 X 10*3/uL (140-440); RBC 3.38 X 10*6/uL (4.10-5.20); RDW 14.5 % (11.5-14.5); WBC 7.71 X 10*3/uL (4.50-10.00)
[2021-03-17] MEDS: HYDROmorphone 1 MG/ML 1 ML SYRINGE IVP PRN (20:37)
[2021-03-17] MEDS: MELATONIN 5 MG TABLET PO SCH (20:38)
[2021-03-17] MEDS ORDERED: LORazepam 1 MG TAB PEG/G-TUBE PRN (21:12)
[2021-03-18] MEDS: HEPARIN SODIUM,PORCINE/PF 5,000 UNIT/0.5 ML SYRINGE SQ SCH ×4 (00:11→23:05)
[2021-03-18] MEDS: HYDROmorphone 1 MG/ML 1 ML SYRINGE IVP PRN ×3 (00:14→15:32)
[2021-03-18] MEDS: AMPICILLIN-SULBACTAM 3 GM in SODIUM CHLORIDE 0.9% 100 ML IVPB SCH ×2 (00:15→05:28)
[2021-03-18] MEDS: guaiFENesin SYRUP 100MG/5ML 200 MG/10 ML CUP PO SCH ×6 (03:11→20:16)
[2021-03-18] MEDS: DEXAMETHASONE SOD PHOSPHATE 10 MG/ML 1 ML VIAL IV SCH (08:47)
[2021-03-18] MEDS: polyethylene glycoL 3350 17 GM POWD.PACK PEG/G-TUBE SCH (08:47)
[2021-03-18] MEDS: PANTOPRAZOLE 40 MG/10 ML VIAL IV SCH (08:47)
[2021-03-18] MEDS: VALPROIC ACID ORAL SOLN 250 MG/5 ML CUP PEG/G-TUBE SCH ×2 (08:47→20:15)
[2021-03-18] MEDS: ASCORBIC ACID 500 MG TAB PO SCH (08:48)
[2021-03-18] MEDS: CHOLECALCIFEROL 25 MCG (1000 IU) TABLET PO SCH (08:48)
[2021-03-18] MEDS: risperiDONE 2 MG TAB PEG/G-TUBE SCH (08:48)
[2021-03-18] MEDS: ZINC SULFATE 220 MG CAP PO SCH (08:48)
[2021-03-18] MEDS: ALBUTEROL HFA INHALER INHALATION SCH ×4 (09:02→21:35)
--- NOTE | 2021-03-18 13:22 | P.PN ---
Subjective Progress Note Date: 03/18/21 Patient is awake and alert today. She is currently on 4 L of oxygen via nasal cannula. Her lung sounds the past since admission. She is having good output in the ostomy. No acute events overnight reported by nursing staff. Objective - Vital Signs Vital signs: Vital Signs Temp 99.4 F 03/18/21 10:04 Pulse 97 03/18/21 10:04 Resp 20 03/18/21 10:31 BP 147/78 03/18/21 10:04 Pulse Ox 90 L 03/18/21 10:04 Intake & Output 03/17/21 03/18/21 03/18/21 18:59 06:59 18:59 Intake Total 910 Output Total 1100 800 650 Balance -190 -800 -650 Weight 63.5 kg Intake: Tube Feeding 660 Other 250 Output: Urine 1000 600 300 Stool 100 200 350 - Exam General: The patient is awake and alert, in no distress Eye: there is normal conjunctiva bilaterally. Neck: The neck is supple, there is no JVD. Cardiovascular: Normal S1-S2, no S3-S4, no murmurs. Respiratory: Lungs with scattered rhonchi Gastrointestinal: Abdomen is soft, PEG tube in place. Colostomy with some serous output Musculoskeletal: There is no pedal edema. Skin: Skin is warm and dry - Labs CBC & Chem 7: 03/17/21 07:55 03/17/21 07:55 Labs: Microbiology - Last 24 Hours (Table) 03/15/21 18:38 Blood Culture - Preliminary Blood No Growth after 48 hours 03/13/21 00:32 Gram Stain - Final Sputum Sputum Culture - Final Cary albicans Staphylococcus aureus Assessment and Plan Assessment: This is a 60-year-old female with past medical history noted below significant for developmental delay chronically nonverbal that presented to the emergency room as a transfer from outside hospital for further evaluation of bowel obstruction. 1. Large bowel obstruction: Status post partial colectomy with colostomy placement. Postoperative care per general surgery. Patient has chronic PEG tube which is currently getting tube feeds and tolerating with no problem 2. COVID-19 pneumonia: With positive screening test at outside hospital. Started on Decadron 6 mg daily day #6. Vitamin C, vitamin D, melatonin, and zinc supplement ordered. 3. Acute hypoxic respiratory failure, improved currently on 4 L of oxygen 4. COPD exacerbation, continue bronchodilators. Mucinex as needed 5. Chronic medical problems: Developmental delay chronically nonverbal, history of seizure disorder, COPD, 6. DVT prophylaxis with subcu heparin Today, I reviewed her medication list and lab work results. Appreciate corporate learning consultant's recommendations. Repeat lab work in the morning. I ordered to discontinue Torres catheter and check postvoid residual to make sure patient is not retaining I asked the nurse to wean off her oxygen as tolerated to room air currently on 2 L Switch IV Decadron to Peg tube Plan to discharge back to [facility] home tomorrow
--- NOTE | 2021-03-18 13:43 | P.PN ---
Subjective Progress Note Date: 03/18/21 CHIEF COMPLAINT: Volvulus HISTORY OF PRESENT ILLNESS: Patient is status post colectomy with end colostomy. She is postop day #6. Her ostomy is functioning. She is tolerating her tube feeds. 2 feeds are at goal at 55 mL per hour. Patient had Torres catheter discontinued today. And they're weaning down her oxygen level. Anticipate discharge to ECF tomorrow. She is afebrile. No new labs for today PHYSICAL EXAM: VITAL SIGNS: Reviewed. GENERAL: Well-developed in no acute distress. HEENT: No sclera icterus. Extraocular movements grossly intact. Moist buccal mucosa. Head is atraumatic, normocephalic. ABDOMEN: Soft. Nondistended. Nontender. PEG tube site clean dry and intact. Incision site clean dry and intact. Ostomy is functioning. NEUROLOGIC: Awake and alert ASSESSMENT: 1. 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 COVID-19 pneumonia PLAN: -Continue tube feeds -Continue pain medication as needed -Anticipating discharge to ECF tomorrow Physician Banana Room Cutter note has been reviewed by physician. Signing provider agrees with the documented findings, assessment, and plan of care. Objective - Vital Signs Vital signs: Vital Signs Temp 99.4 F 03/18/21 10:04 Pulse 97 03/18/21 10:04 Resp 20 03/18/21 10:31 BP 147/78 03/18/21 10:04 Pulse Ox 90 L 03/18/21 10:04 Intake & Output 03/17/21 03/18/21 03/18/21 18:59 06:59 18:59 Intake Total 910 Output Total 1100 800 650 Balance -190 -800 -650 Weight 63.5 kg Intake: Tube Feeding 660 Other 250 Output: Urine 1000 600 300 Stool 100 200 350 - Labs CBC & Chem 7: 03/17/21 07:55 03/17/21 07:55 Labs: Microbiology - Last 24 Hours (Table) 03/15/21 18:38 Blood Culture - Preliminary Blood No Growth after 48 hours 03/13/21 00:32 Gram Stain - Final Sputum Sputum Culture - Final Cary albicans Staphylococcus aureus
--- NOTE | 2021-03-18 14:41 | P.PN ---
Subjective Progress Note Date: 03/18/21 Principal diagnosis: Acute abdominal pain This is a 60-year-old female patient who has a history of being mentally challenged, hypertension, hyperlipidemia, depression/anxiety, seizure disorder, mild intermittent chronic bronchial asthma and follows with Dr. Kowalski in our office for the same. She also has a history of chronic constipation with previous colectomy and colostomy with subsequent reversal. She was brought here to the emergency room from [facility] with complaints of abdominal discomfort. She was found to have a large bowel obstruction. She had abdominal distention and episodes of vomiting. The patient herself is unable to give any information due to her developmental disability. Computed tomography scan revealed a large bowel obstruction possibly related to twisting or volvulus versus an anastomosis stricture. She was transferred here for the same. She was taken to the operating room by Dr. Chow last evening. She had undergone colectomy with end colostomy due to massive dilated colon secondary to volvulus. She is seen today in consultation. She remains intubated on the mechanical ventilator. Current settings are assist-control mode. Rate of 12. Tequin 400. FiO2 50%. PEEP of 5. Morning blood gases reveal a pO2 of 61, pCO2 39, pH 7.48. She has propofol on for sedation at 50 mg/kg/m. 0.9 normal saline at 75 ML's per hour. Chest x-ray shows persistent low lung volumes and bilateral multiple focal opacities. Small right pleural effusion. She did test positive for COVID-19 infection 03/11/2021. Sputum cultures pending. White count 4.8. Hemoglobin 11.6. Platelets 158. Sodium 142. Potassium 3.8. Creatinine 0.56. Midline surgical dressing dry and intact. Left side colostomy with trace of blood returned thus far. She's been initiated on Zosyn, bronchodilators. She is currently in sinus rhythm. The patient is seen today 03/14/2021 in follow-up in the intensive care unit. She was successfully extubated yesterday. She is currently on 50% Ventimask with O2 saturations in the 90s. He is resting in bed. She has some garbled noises. No clear words are spoken. Chest x-ray reveals low lung volumes with bilateral patchy multifocal airspace opacities. She was positive for COVID-19 this week. Suspect aspiration. Sputum culture pending. White count 6.5. Hemoglobin 10.3. Lymphocytes 0.4. Sodium 145. Potassium 3.8. Creatinine 0.46. AST 26. ALT 12. Albumin 2.6. She is continued on Unasyn. She is on vitamin supplements, Decadron, heparin for DVT prophylaxis. Colostomy has some gas and serosanguineous fluid noted. Hypoactive bowel sounds. \\ 2020, the patient is postop day #3 from bowel surgery. She has a colostomy. Colostomy is functional. There is some liquidy material collecting in the back. No abdominal distention. Surgical wound site is dry clean and intact. The PEG tube site is clean. The patient is receiving vital high protein at the rate of 20 mL an hour as enteral feeding for nutritional support. Her overall respiratory status is stable. She remains extubated on 4 L of oxygen by nasal cannula. She remains on Unasyn. She remains on Decadron. est x-ray showing bilateral pulmonary infiltrates consistent with either aspiration or COVID-19 related pneumonia. Nevertheless, no signs of any respiratory distress. I was informed that the patient has adequate cough at this point in time. She does not communicate. IV fluids are running in the form of 0.9 at the rate of 10 mL an hour. Urine output is no order of 30-50 mL an hour. Hemoglobin stable at 10.5. Her white cell count is at 8.4. 03/16/2021 the patient is postop day #4. She does have upper airway secretions and she has a congested cough. Unfortunately, she is unable to do adequate pulmonate toileting cause of her underlying significant neurologic damage. Her colostomy is functional. There is some stool output and gas. The patient is receiving enteral feeding for nutritional support via a PEG tube. Active site is dry clean and intact. No abdominal pain. No abdominal distention. Surgical wound site is dry clean and intact. No signs of any significant respiratory distress. She'll occasionally moans. IV fluids are currently running at KVO. She has adequate urine output. Labs from today showed a white cell count of 8.4 with a hemoglobin of 10.5. She does have lymphopenia related to her COVID-19 infection. BUN is 21 with a creatinine of 0.4. Sodium is at 144. She is afebrile. Slightly tachycardic. The pack to was clogged today and this was unclogged by showing. She is currently on tube feeds which is currently running at 50 mL an hour of vital AF 1.2 On today's evaluation of 03/17/2021 the patient is postop day #5. No new issues. Receiving enteral feeding with the vital AF at the rate of 50 mL an hour. Electrolytes are stable. No respiratory issues. Ostomy is functional. Surgical wound site is functional. Active site is clean. No aspiration. No respiratory difficulties. He remains on Unasyn. Remains on Decadron. He is having a low-grade fever. Unable to perform an incentive spirometer use. On 03/18/2021 patient seen in follow-up on medical surgical floor. She is resting comfortably in bed, appears to be in no acute distress, patient is minimally verbal, does not follow command, she has underlying history of cogniti ve deficits. The patient is awake and alert. She is currently on liters of oxygen pulse ox is 95%, low-grade fever this afternoon with a temp of 99.6F. She is tolerating tube feedings through the PEG tube, her colostomy is producing liquid brown stool, her last chest x-ray was done on 03/15/2021 showing patchy bilateral airspace disease within the lungs. Patient was also found to be "with positive this admission. She is currently on Decadron. Is on subcu heparin for DVT prophylaxis. Her oxygenation has been stable. Objective - Vital Signs Vital signs: Vital Signs Temp 99.6 F 03/18/21 14:27 Pulse 89 03/18/21 14:27 Resp 20 03/18/21 14:27 BP 111/67 03/18/21 14:27 Pulse Ox 95 03/18/21 14:27 Intake & Output 03/17/21 03/18/21 03/18/21 18:59 06:59 18:59 Intake Total 910 Output Total 1100 800 650 Balance -190 -800 -650 Weight 63.5 kg Intake: Tube Feeding 660 Other 250 Output: Urine 1000 600 300 Stool 100 200 350 - Exam GENERAL EXAM: Alert, nonverbal, 60-year-old white female on 2 L of oxygen pulse ox of 95% resting comfortably in bed, comfortable in no apparent distress. HEAD: Normocephalic/atraumatic. EYES: Normal reaction of pupils, equal size. Conjunctiva pink, sclera white. NOSE: Clear with pink turbinates. THROAT: No erythema or exudates. NECK: No masses, no JVD, no thyroid enlargement, no adenopathy. CHEST: No chest wall deformity. Symmetrical expansion. LUNGS: Equal air entry with diminished breath sounds at the bases CVS: Regular rate and rhythm, normal S1 and S2, no gallops, no murmurs, no rubs ABDOMEN: Soft, nontender. No hepatosplenomegaly, normal bowel sounds, no guarding or rigidity. Midabdominal incision clean dry and intact, covered with surgical dressing, left-sided colostomy in place producing liquid brown stool EXTREMITIES: No clubbing, no edema, no cyanosis, 2+ pulses and upper and lower extremities. MUSCULOSKELETAL: Patient has chronic contractures of upper extremities, and footdrop involving lower extremities SPINE: No scoliosis or deformity SKIN: No rashes CENTRAL NERVOUS SYSTEM: Alert, unable to assess orientation patient is nonverbal No focal deficits, tone is normal in all 4 extremities. - Labs CBC & Chem 7: 03/17/21 07:55 03/17/21 07:55 Labs: Microbiology - Last 24 Hours (Table) 03/15/21 18:38 Blood Culture - Preliminary Blood No Growth after 48 hours 03/13/21 00:32 Gram Stain - Final Sputum Sputum Culture - Final Cary albicans Staphylococcus aureus Assessment and Plan Plan: Assessment: #1. Acute abdominal pain secondary to large bowel obstruction with volvulus, status post colectomy with end colostomy. Postoperative day #6 #2. acute hypoxic respiratory failure, likely secondary to combination of aspiration and COVID-19 related pneumonia. The patient is currently on 4l by nasal cannula. She has been extubated successfully. She remains on Decadron. Patient completed states of Unasyn #3. CoVID positive on 03/09/2021 at [facility] #4. Previous history of chronic constipation with colectomycolostomy and subsequent reversal #5. History of tardive dyskinesia and mentally challenged, residing in [facility] #6. Dysphagia status post previous PEG tube placement #7. Chronic bilateral shoulder dislocations #8. History of seizures #9. Hypertension #10. Hyperlipidemia #11. Anxiety/depression #12. Mild intermittent chronic bronchial asthma Plan: Maintain aspiration precautions Continue Decadron Patient has completed a course of Unasyn Oxygenation has remained stable on minimal supplemental oxygen Follow-up chest x-ray tomorrow Tolerating tube feedings, her colostomy is functioning GI and DVT prophylaxis We'll continue to follow I performed a history & physical examination of the patient and discussed their management with my nurse practitioner, Jessika Nix. I reviewed the nurse practitioner's note and agree with the documented findings and plan of care. Lung sounds are positive for diminished breath sounds. The findings and the impression was discussed with the patient. I attest to the documentation by the nurse practitioner. Time with Patient: Less than 30
[2021-03-18 14:49] VITALS: BMI 23.3
[2021-03-18] MEDS: MELATONIN 5 MG TABLET PO SCH (20:16)
[2021-03-19] MEDS: HYDROmorphone 1 MG/ML 1 ML SYRINGE IVP PRN ×2 (00:03→14:13)
[2021-03-19] MEDS: guaiFENesin SYRUP 100MG/5ML 200 MG/10 ML CUP PO SCH ×3 (01:26→07:31)
[2021-03-19] MEDS: PANTOPRAZOLE 40 MG/10 ML VIAL IV SCH (07:28)
[2021-03-19] MEDS: HEPARIN SODIUM,PORCINE/PF 5,000 UNIT/0.5 ML SYRINGE SQ SCH (07:28)
[2021-03-19] MEDS: polyethylene glycoL 3350 17 GM POWD.PACK PEG/G-TUBE SCH (07:28)
[2021-03-19] MEDS: VALPROIC ACID ORAL SOLN 250 MG/5 ML CUP PEG/G-TUBE SCH (07:28)
[2021-03-19] MEDS: ASCORBIC ACID 500 MG TAB PO SCH (07:29)
[2021-03-19] MEDS: CHOLECALCIFEROL 25 MCG (1000 IU) TABLET PO SCH (07:29)
[2021-03-19] MEDS: risperiDONE 2 MG TAB PEG/G-TUBE SCH (07:29)
[2021-03-19] MEDS: ZINC SULFATE 220 MG CAP PO SCH (07:30)
--- NOTE | 2021-03-19 07:56 | XR ---
EXAMINATION TYPE: XR chest 1V portable DATE OF EXAM: 03/19/2021 COMPARISON: 03/15/2021 HISTORY: Covid and aspiration TECHNIQUE: Single frontal view of the chest is obtained. FINDINGS: Heart size appears within normal limits. Bilateral multifocal patchy airspace opacities brock ve improved since prior exam. Probable small right pleural effusion. No left pleural effusion. No pne umothorax. Severe chronic deformities bilateral shoulders redemonstrated. Osseous structures are kraig neralized. Probable PEG tube projecting at the stomach. IMPRESSION: 1. Bilateral patchy multifocal airspace opacities are decreased. Probable small right pleural effusio n. 2. Probable PEG tube projecting at the stomach.
[2021-03-19] MEDS ORDERED: dexAMETHasone 2 MG TAB PO SCH (09:00)
[2021-03-19] MEDS: ALBUTEROL HFA INHALER INHALATION SCH ×3 (09:22→16:33)
--- NOTE | 2021-03-19 13:09 | P.PN ---
Subjective Progress Note Date: 03/19/21 Principal diagnosis: Acute abdominal pain This is a 60-year-old female patient who has a history of being mentally challenged, hypertension, hyperlipidemia, depression/anxiety, seizure disorder, mild intermittent chronic bronchial asthma and follows with Dr. Kowalski in our office for the same. She also has a history of chronic constipation with previous colectomy and colostomy with subsequent reversal. She was brought here to the emergency room from [facility] with complaints of abdominal discomfort. She was found to have a large bowel obstruction. She had abdominal distention and episodes of vomiting. The patient herself is unable to give any information due to her developmental disability. Computed tomography scan revealed a large bowel obstruction possibly related to twisting or volvulus versus an anastomosis stricture. She was transferred here for the same. She was taken to the operating room by Dr. Chow last evening. She had undergone colectomy with end colostomy due to massive dilated colon secondary to volvulus. She is seen today in consultation. She remains intubated on the mechanical ventilator. Current settings are assist-control mode. Rate of 12. Tequin 400. FiO2 50%. PEEP of 5. Morning blood gases reveal a pO2 of 61, pCO2 39, pH 7.48. She has propofol on for sedation at 50 mg/kg/m. 0.9 normal saline at 75 ML's per hour. Chest x-ray shows persistent low lung volumes and bilateral multiple focal opacities. Small right pleural effusion. She did test positive for COVID-19 infection 03/11/2021. Sputum cultures pending. White count 4.8. Hemoglobin 11.6. Platelets 158. Sodium 142. Potassium 3.8. Creatinine 0.56. Midline surgical dressing dry and intact. Left side colostomy with trace of blood returned thus far. She's been initiated on Zosyn, bronchodilators. She is currently in sinus rhythm. The patient is seen today 03/14/2021 in follow-up in the intensive care unit. She was successfully extubated yesterday. She is currently on 50% Ventimask with O2 saturations in the 90s. He is resting in bed. She has some garbled noises. No clear words are spoken. Chest x-ray reveals low lung volumes with bilateral patchy multifocal airspace opacities. She was positive for COVID-19 this week. Suspect aspiration. Sputum culture pending. White count 6.5. Hemoglobin 10.3. Lymphocytes 0.4. Sodium 145. Potassium 3.8. Creatinine 0.46. AST 26. ALT 12. Albumin 2.6. She is continued on Unasyn. She is on vitamin supplements, Decadron, heparin for DVT prophylaxis. Colostomy has some gas and serosanguineous fluid noted. Hypoactive bowel sounds. \\ 2020, the patient is postop day #3 from bowel surgery. She has a colostomy. Colostomy is functional. There is some liquidy material collecting in the back. No abdominal distention. Surgical wound site is dry clean and intact. The PEG tube site is clean. The patient is receiving vital high protein at the rate of 20 mL an hour as enteral feeding for nutritional support. Her overall respiratory status is stable. She remains extubated on 4 L of oxygen by nasal cannula. She remains on Unasyn. She remains on Decadron. est x-ray showing bilateral pulmonary infiltrates consistent with either aspiration or COVID-19 related pneumonia. Nevertheless, no signs of any respiratory distress. I was informed that the patient has adequate cough at this point in time. She does not communicate. IV fluids are running in the form of 0.9 at the rate of 10 mL an hour. Urine output is no order of 30-50 mL an hour. Hemoglobin stable at 10.5. Her white cell count is at 8.4. 03/16/2021 the patient is postop day #4. She does have upper airway secretions and she has a congested cough. Unfortunately, she is unable to do adequate pulmonate toileting cause of her underlying significant neurologic damage. Her colostomy is functional. There is some stool output and gas. The patient is receiving enteral feeding for nutritional support via a PEG tube. Active site is dry clean and intact. No abdominal pain. No abdominal distention. Surgical wound site is dry clean and intact. No signs of any significant respiratory distress. She'll occasionally moans. IV fluids are currently running at KVO. She has adequate urine output. Labs from today showed a white cell count of 8.4 with a hemoglobin of 10.5. She does have lymphopenia related to her COVID-19 infection. BUN is 21 with a creatinine of 0.4. Sodium is at 144. She is afebrile. Slightly tachycardic. The pack to was clogged today and this was unclogged by showing. She is currently on tube feeds which is currently running at 50 mL an hour of vital AF 1.2 On today's evaluation of 03/17/2021 the patient is postop day #5. No new issues. Receiving enteral feeding with the vital AF at the rate of 50 mL an hour. Electrolytes are stable. No respiratory issues. Ostomy is functional. Surgical wound site is functional. Active site is clean. No aspiration. No respiratory difficulties. He remains on Unasyn. Remains on Decadron. He is having a low-grade fever. Unable to perform an incentive spirometer use. On 03/18/2021 patient seen in follow-up on medical surgical floor. She is resting comfortably in bed, appears to be in no acute distress, patient is minimally verbal, does not follow command, she has underlying history of cogniti ve deficits. The patient is awake and alert. She is currently on liters of oxygen pulse ox is 95%, low-grade fever this afternoon with a temp of 99.6F. She is tolerating tube feedings through the PEG tube, her colostomy is producing liquid brown stool, her last chest x-ray was done on 03/15/2021 showing patchy bilateral airspace disease within the lungs. Patient was also found to be "with positive this admission. She is currently on Decadron. Is on subcu heparin for DVT prophylaxis. Her oxygenation has been stable. On 03/19/2021 patient seen in follow-up on medical surgical floor. She is resting comfortably in bed, she is humming occasionally, but does not appear to be in any acute respiratory distress. She is currently on 2 L of oxygen pulse ox is 95-96%, hemodynamically stable, she's had no fever or chills, lung sounds are clear, diminished at the bases. No rhonchi or wheezing. Has completed course of Unasyn. Remains on Decadron 6 mg daily. Her colostomy is producing l iquid stool. PEG tube is in place, and patient has been started on tube feedings in the form of vital AF infusing at 55 ML per hour Objective - Vital Signs Vital signs: Vital Signs Temp 98.4 F 03/19/21 08:00 Pulse 89 03/19/21 08:00 Resp 19 03/19/21 08:00 BP 144/87 03/19/21 08:00 Pulse Ox 95 03/19/21 08:00 Intake & Output 03/18/21 03/19/21 03/19/21 18:59 06:59 18:59 Intake Total 660 Output Total 900 400 Balance -900 260 Weight 63.5 kg 63 kg Intake: Tube Feeding 660 Output: Urine 550 400 Stool 350 Other: Voiding Method External Catheter - Exam GENERAL EXAM: Alert, nonverbal, 60-year-old white female on 2 L of oxygen pulse ox of 95% resting comfortably in bed, comfortable in no apparent distress. HEAD: Normocephalic/atraumatic. EYES: Normal reaction of pupils, equal size. Conjunctiva pink, sclera white. NOSE: Clear with pink turbinates. THROAT: No erythema or exudates. NECK: No masses, no JVD, no thyroid enlargement, no adenopathy. CHEST: No chest wall deformity. Symmetrical expansion. LUNGS: Equal air entry with diminished breath sounds at the bases CVS: Regular rate and rhythm, normal S1 and S2, no gallops, no murmurs, no rubs ABDOMEN: Soft, nontender. No hepatosplenomegaly, normal bowel sounds, no guarding or rigidity. Midabdominal incision clean dry and intact, covered with surgical dressing, left-sided colostomy in place producing liquid brown stool EXTREMITIES: No clubbing, no edema, no cyanosis, 2+ pulses and upper and lower extremities. MUSCULOSKELETAL: Patient has chronic contractures of upper extremities, and footdrop involving lower extremities SPINE: No scoliosis or deformity SKIN: No rashes CENTRAL NERVOUS SYSTEM: Alert, unable to assess orientation patient is nonverbal No focal deficits, tone is normal in all 4 extremities. - Labs CBC & Chem 7: 03/17/21 07:55 03/17/21 07:55 Labs: Microbiology - Last 24 Hours (Table) 03/15/21 18:38 Blood Culture - Preliminary Blood No Growth after 72 hours Assessment and Plan Plan: Assessment: #1. Acute abdominal pain secondary to large bowel obstruction with volvulus, status post colectomy with end colostomy. Postoperative day #7 #2. acute hypoxic respiratory failure, likely secondary to combination of aspiration and COVID-19 related pneumonia. The patient is currently on 4l by nasal cannula. She has been extubated successfully. She remains on Decadron. Patient completed course of Unasyn #3. CoVID positive on 03/09/[address] [facility] #4. Previous history of chronic constipation with colectomycolostomy and subsequent reversal #5. History of tardive dyskinesia and mentally challenged, residing in [facility] #6. Dysphagia status post previous PEG tube placement #7. Chronic bilateral shoulder dislocations #8. History of seizures #9. Hypertension #10. Hyperlipidemia #11. Anxiety/depression #12. Mild intermittent chronic bronchial asthma Plan: Requiring minimal supplemental oxygen No worsening dyspnea Today's chest x-ray has been reviewed Showing patchy multifocal airspace opacities bilaterally, small right pleural effusion, relatively stable findings No acute events overnight Patient has completed a course of Unasyn for probable aspiration pneumonia She continues on Decadron, and patient can complete a total of 10 day course of Decadron Maintain aspiration precautions Continue tube feedings, colostomy is functioning and producing liquid brown stool GI and DVT prophylaxis From pulmonary perspective she stable for transfer to [facility] when cleared by surgery and medicine I performed a history & physical examination of the patient and discussed their management with my nurse practitioner, Jessika Nix. I reviewed the nurse practitioner's note and agree with the documented findings and plan of care. Lung sounds are positive for diminished breath sounds. The findings and the impression was discussed with the patient. I attest to the documentation by the nurse practitioner. Time with Patient: Less than 30
--- NOTE | 2021-03-19 13:11 | P.DS ---
<Bobo Cadet - Last Filed: 03/19/21 13:24> Providers Expected date of discharge: 03/19/21 Hospital Course: Discharge Diagnosis: Large bowel obstruction with volvulus, status post colectomy with colostomy on 03/12/21. Covid 19 pneumonia Acute hypoxic respiratory failure, likely secondary to combination of aspiration and COVID-19 related pneumonia with COPD exacerbation. Developmental delay with history of tardive dyskinesia and mentally challenged, residing in [facility] Seizure disorder Dysphagia status post previous PEG tube placement Chronic bilateral shoulder dislocations Hypertension Hyperlipidemia Hospital Course: Patient is a 60-year-old female with a past medical history significant for developmental delay with baseline nonverbal status, seizure disorder, hyperlipidemia, and COPD. She presented to [facility]'s emergency department on 03/12/21 with a chief complaint of abdominal pain and distention. She was seen and fully evaluated and found to have leukocytosis with WBC count of 14.[address] of her abdomen and pelvis with contrast which revealed a high-grade large bowel obstruction resulting in transfer to our facility. Patient underwent an exploratory laparotomy resulting in colectomy with end colostomy by Dr. Chow on 03/12/21. She was also diagnosed with Covid 19 pneumonia with positive screening test at [facility] on 03/09/21 started on Decadron 6 mg daily along with vitamin C, vitamin D, melatonin, and zinc. Patient required oxygen supplementation and later in anticipation with successful extubation and has been successfully weaned back off of oxygen and has been maintaining saturations on 2 L O2.. Patient underwent venous Doppler of the left upper extremity which was negative for DVTs .Patient's condition improved and has been stabilized. Sputum culture was positive for Staphylococcus aureus and [place] albicans. Patient received 7 day course of antibiotic, Unasyn with last dose completed on 03/18/21. Repeat chest x-ray completed 03/19/21 revealing bilateral patchy multifocal airspace opacities are decreased Colostomy working well with good output. Patient is being discharged back to [facility] home today on home oxygen and will continue with 3 days of Decadron to complete full 10 day course. Patient will be discharged home with home health care services through residential home health care. She will need to follow up with her PCP Dr. Valenzuela, General surgery Dr. Chow, and pulmonology Dr. Kowalski. Physical examination: Patient seen and examined at bedside. Vital signs reviewed and stable. General: Nontoxic, no distress and appears stated age. Derm: Skin warm and dry, normal coloration for ethnicity. Head: Atraumatic, normocephalic and symmetric. Eyes: No lid lag, and anicteric sclera Mouth: no lip lesions, mucus membranes moist Cardiovascular: regular rate and rhythm with normal S1S2, no murmur, gallops, or rubs. Positive posterior tibial pulses bilaterally, and cap refill < 2 seconds. Lungs: Respirations even, regular, and unlabored on room air. Lungs diminished at bases bilaterally, no rhonchi, rales, or wheezing noted at this time. No accessory muscle usage. Abdominal: soft, nontender to palpation. PEG tube and left-sided colostomy in place with moderate amount of brown liquid stool. Ext: No gross muscle atrophy, no edema, no contractures. Neuro: Alert and nonverbal per baseline Psych: Alert and nonverbal per baseline. A total of 45 minutes of time were spent preparing this complex discharge sum lolita. Patient Condition at Discharge: Stable Plan - Discharge Summary Discharge Rx Participant: No New Discharge Prescriptions: New Zinc Sulfate [Orazinc] 220 mg PO DAILY 30 Days #30 cap dexAMETHasone ORAL [Hexadrol] 6 mg PO DAILY 3 Days #9 tab guaiFENesin SYRUP 100MG/5ML [Robitussin] 400 mg PO Q4H ml No Action polyethylene glycoL 3350 [Miralax] 17 gm PEG/G-TUBE DAILY@0700 Valproic Acid Oral Soln [Depakene Syrup] 375 mg PEG/G-TUBE BID@0700,2100 risperiDONE [RisperDAL] 2 mg PEG/G-TUBE DAILY@0700 #10 tab Nutren Renal Liquid 1 can PEG/G-TUBE TID@0700,1100,1700 Magnesium Hydroxide [Milk of Magnesia] 2,400 mg PEG/G-TUBE Q48H PRN PRN Reason: Constipation Ipratropium-Albuterol Nebulize [Duoneb 0.5 mg-3 mg/3 ml Soln] 3 ml INHALATION RT-QID PRN PRN Reason: Shortness Of Breath bisacodyL [Bisacodyl] 10 mg RECTAL DAILY PRN PRN Reason: Constipation Na Phos,M-B/Na Phos,Di-Ba [Fleet Adult] 133 ml RECTAL Q96D PRN PRN Reason: Constipation Reguloid Powder 48.57% 1 tbsp PEG/G-TUBE BID@0700,2100 LORazepam [Ativan] 1 mg PEG/G-TUBE HS@2100 LORazepam [Ativan] 0.5 mg PEG/G-TUBE BID@1200,1600 Acetaminophen Tab [Tylenol] 500 mg PEG/G-TUBE Q12H #60 tab amantadine HCL [Amantadine] 100 mg PEG/G-TUBE BID@0700,2100 Oralbalance Gel 1 dose PO TID@0700,1700,2100 Nutren Renal Liquid 0.5 can PEG/G-TUBE TID@1000,1400,2000 Acetaminophen [Children's Tylenol] 480 mg PEG/G-TUBE QID PRN PRN Reason: Pain Discharge Medication List polyethylene glycoL 3350 [Miralax] 17 gm PEG/G-TUBE DAILY@0700 07/19/20 [History] Valproic Acid Oral Soln [Depakene Syrup] 375 mg PEG/G-TUBE BID@0700,2100 11/01/20 [History] risperiDONE [RisperDAL] 2 mg PEG/G-TUBE DAILY@0700 #10 tab 11/06/20 [Rx] Ipratropium-Albuterol Nebulize [Duoneb 0.5 mg-3 mg/3 ml Soln] 3 ml INHALATION RT-QID PRN 12/14/20 [History] LORazepam [Ativan] 0.5 mg PEG/G-TUBE BID@1200,1600 12/14/20 [History] LORazepam [Ativan] 1 mg PEG/G-TUBE HS@2100 12/14/20 [History] Magnesium Hydroxide [Milk of Magnesia] 2,400 mg PEG/G-TUBE Q48H PRN 12/14/20 [History] Na Phos,M-B/Na Phos,Di-Ba [Fleet Adult] 133 ml RECTAL Q96D PRN 12/14/20 [History] Nutren Renal Liquid 1 can PEG/G-TUBE TID@0700,1100,1700 12/14/20 [History] Reguloid Powder 48.57% 1 tbsp PEG/G-TUBE BID@0700,2100 12/14/20 [History] bisacodyL [Bisacodyl] 10 mg RECTAL DAILY PRN 12/14/20 [History] Acetaminophen Tab [Tylenol] 500 mg PEG/G-TUBE Q12H #60 tab 12/27/20 [Rx] Acetaminophen [Children's Tylenol] 480 mg PEG/G-TUBE QID PRN 03/12/21 [History] Nutren Renal Liquid 0.5 can PEG/G-TUBE TID@1000,1400,2000 03/12/21 [History] Oralbalance Gel 1 dose PO TID@0700,1700,2100 03/12/21 [History] amantadine HCL [Amantadine] 100 mg PEG/G-TUBE BID@0700,2100 03/12/21 [History] Zinc Sulfate [Orazinc] 220 mg PO DAILY 30 Days #30 cap 03/19/21 [Rx] dexAMETHasone ORAL [Hexadrol] 6 mg PO DAILY 3 Days #9 tab 03/19/21 [Rx] guaiFENesin SYRUP 100MG/5ML [Robitussin] 400 mg PO Q4H ml 03/19/21 [Rx] Follow up Appointment(s)/Referral(s): Carlitos Valenzuela MD [Primary Care Provider] - 03/24/21 11:30 am [facility] [NON-STAFF] - As Needed [facility] [NON-STAFF] - As Needed (oxygen ) Lance Kowalski MD [STAFF PHYSICIAN] - 04/16/21 3:15 pm Charly Chow MD [STAFF PHYSICIAN] - 03/27/21 4:00 pm Patient Instructions/Handouts: Colostomy Care (DC), Colectomy (DC) Activity/Diet/Wound Care/Special Instructions: Activity: As tolerated per baseline levels, turn every 2 hours. Diet: Heart healthy diet Wound Care: Colostomy care Colostomy care recommendations for transition to Adult Foster Facility: LAst pouching system change: 03.19.2021 Mrs Whitt will have the following colostomy supplies from the hospital on discharge: Convatec one piece cut to fit with filter #[id number] (4) Osotmy powder (1) No Sting prep pads (12) Please change the pouching system every 3 -5 days Empty the pouching system when it is 1/2 to 1/3 full Special Instructions: Patient is being discharged home on home oxygen, 2 L O2 via nasal cannula, it is important to wear this oxygen at all times until further instructed by oil transport driver Dr. Kowalski upon your follow up appointment. Patient will need to follow up with her PCP Dr. Valenzuela, General surgery Dr. Chow, and pulmonology Dr. Kowalski. Discharge Disposition: HOME WITH HOME HEALTH SERVICES <Anne-Marie Pham - Last Filed: 03/19/21 18:11> Providers Date of admission: 03/12/21 03:34 Attending physician: Angelika Valenzuela MD Consults: 03/12/21 03:35 Consult Physician Routine Consulting Provider: Charly Chow Consult Reason/Comments: bowel obstruction Do you want consulting provider notified?: Yes 03/13/21 07:15 Consult Physician Routine Consulting Provider: Lance Kowalski Consult Reason/Comments: Mechanical Ventilation Do you want consulting provider notified?: Already Contacted Primary care physician: Carlitos Valenzuela [facility] Course: Patient seen and examined independently. Patient was also seen by Bobo Cadet NP and case was discussed. I am in agreement with subjective, physical exam, assessment and plan as written above and amended below. Patient resting comfortably in bed. General: Chronically ill-appearing, temporal and buccal wasting, no distress, appears older than stated age Derm: warm, dry Head: atraumatic, normocephalic, symmetric Eyes: EOMI, no lid lag, anicteric sclera Mouth: no lip lesion, mucus membranes dry Cardiovascular: S1S2 reg, no murmur, positive posterior tibial pulse bilateral, Lungs: Coarse breath sounds bilateral, no rhonchi, no rales , no accessory muscle use Abdominal: soft, nontender to palpation, no guarding, no appreciable organomegaly Psych: Awake, appears anxious
--- NOTE | 2021-03-19 13:16 | P.PN ---
Subjective Progress Note Date: 03/19/21 CHIEF COMPLAINT: Volvulus HISTORY OF PRESENT ILLNESS: Patient is status post colectomy with end colostomy. She is postop day #7. Her ostomy is functioning. She is tolerating her tube feeds. Tube feeds are at goal at 55 mL per hour. Anticipate discharge to ECF today. She is afebrile. No new labs for today PHYSICAL EXAM: VITAL SIGNS: Reviewed. GENERAL: Well-developed in no acute distress. HEENT: No sclera icterus. Extraocular movements grossly intact. Moist buccal mucosa. Head is atraumatic, normocephalic. ABDOMEN: Soft. Nondistended. Nontender. PEG tube site clean dry and intact. Incision site clean dry and intact. Ostomy is functioning. NEUROLOGIC: Awake and alert ASSESSMENT: 1. 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 COVID-19 pneumonia PLAN: -Continue tube feeds -Continue Tylenol as needed for pain -Patient is stable from surgical standpoint for discharge to ECF Physician Regional Planner note has been reviewed by physician. Signing provider agrees with the documented findings, assessment, and plan of care. Objective - Vital Signs Vital signs: Vital Signs Temp 98.4 F 03/19/21 08:00 Pulse 89 03/19/21 08:00 Resp 19 03/19/21 08:00 BP 144/87 03/19/21 08:00 Pulse Ox 95 03/19/21 08:00 Intake & Output 03/18/21 03/19/21 03/19/21 18:59 06:59 18:59 Intake Total 660 Output Total 900 400 Balance -900 260 Weight 63.5 kg 63 kg Intake: Tube Feeding 660 Output: Urine 550 400 Stool 350 Other: Voiding Method External Catheter - Labs CBC & Chem 7: 03/17/21 07:55 03/17/21 07:55 Labs: Microbiology - Last 24 Hours (Table) 03/15/21 18:38 Blood Culture - Preliminary Blood No Growth after 72 hours
[2021-03-19 14:19] VITALS: BP 153/81; PULSE 99; RESP 21; TEMP 98.5
== END 2021-03-19 17:31 | disposition home health service (06) | DRG 329 ==
LOC: EC 01:34 → 4SSUR 03:34 → 2SICU 20:30 → 4SSUR 03-15 12:23
PROVIDERS: ADMIT Internal Medicine; ATTEND Internal Medicine
PROC: 0DBL0ZZ Excision of Transverse Colon, Open Approach (ICD-10-PCS; principal; 2021-03-12 10:55)
PROC: 0D1E0Z4 Bypass Large Intestine to Cutaneous, Open Approach (ICD-10-PCS; principal; 2021-03-12 10:55)
PROC: 0D9670Z Drainage of Stomach with Drainage Device, Via Natural or Artificial Opening (ICD-10-PCS; 2021-03-12 10:55)
PROC: 3E0G76Z Introduction of Nutritional Substance into Upper GI, Via Natural or Artificial Opening (ICD-10-PCS; 2021-03-14 15:50)
DX: K56.2 Volvulus (principal); U07.1 COVID-19; J96.01 Acute respiratory failure with hypoxia; J12.82 Pneumonia due to coronavirus disease 2019; J69.0 Pneumonitis due to inhalation of food and vomit; J44.1 Chronic obstructive pulmonary disease with (acute) exacerbation; J44.0 Chronic obstructive pulmonary disease with (acute) lower respiratory infection; D72.810 Lymphocytopenia; E78.5 Hyperlipidemia, unspecified; F20.9 Schizophrenia, unspecified; F41.9 Anxiety disorder, unspecified; G40.909 Epilepsy, unspecified, not intractable, without status epilepticus; H91.90 Unspecified hearing loss, unspecified ear; I10 Essential (primary) hypertension; M24.412 Recurrent dislocation, left shoulder; M24.411 Recurrent dislocation, right shoulder; R13.10 Dysphagia, unspecified; Z79.899 Other long term (current) drug therapy; F79 Unspecified intellectual disabilities; Z82.49 Family history of ischemic heart disease and other diseases of the circulatory system; Z83.3 Family history of diabetes mellitus; Z86.73 Personal history of transient ischemic attack (TIA), and cerebral infarction without residual deficits; Z90.49 Acquired absence of other specified parts of digestive tract; Z93.1 Gastrostomy status; G24.01 Drug induced subacute dyskinesia; Z98.890 Other specified postprocedural states
CPT/HCPCS: 36410; 36415; 36600; 71045; 76937; 80048; 80053; 82805; 83605; 83735; 85025; 87040; 87070; 87077; 87186; 87205; 88307; 94002; 94003; 94640; 94760; 99285

== ENCOUNTER 2021-05-01 09:29 | Day surgery (SDC) | payer MEDICARE, OTHER ==
[~2021-05-01 09:29] MED LIST changes: -ACETAMINOPHEN TAB 500 MG TAB PO ONE; -DEXAMETHASONE SOD PHOSPHATE 10 MG/ML 1 ML VIAL IV ONE; -HEPARIN SODIUM,PORCINE 5,000 UNIT/ML 1 ML VIAL SQ ONE; -HYDROmorphone 0.5 MG/0.5 ML SYRINGE IVP PRN; +LACTATED RINGERS 1,000 ML IV SCH; +LIDOCAINE 1% (10MG/ML) FOR IV START INTRADERMA PRN; -ONDANSETRON 4 MG/2 ML VIAL IVP ONE; -SCOPOLAMINE 1.5MG/72HR PATCH TRANSDERM ONE; -metroNIDAZOLE-NS PMX 500 MG in SALINE 1 100ML.BAG IVPB ONE
[2021-05-01 10:39] VITALS: TEMP 97.3
[2021-05-01] MEDS ORDERED: LIDOCAINE 1% (10MG/ML) FOR IV START INTRADERMA ONE (10:49)
[2021-05-01] MEDS ORDERED: LIDOCAINE 1% INJ 10MG/ML (20 ML MDV) ONE (10:53)
[2021-05-01] MEDS ORDERED: PROPOFOL 10 MG/ML 20 ML VIAL IV ONE (10:53)
--- NOTE | 2021-05-01 10:57 | P.GSHP ---
History of Present Illness H&P Date: 05/01/21 Chief Complaint: Malnutrition Is a 61-year-old female who presents today for EGD and possible PEG tube placement. Patient axilla admitted for PEG tube. She had a Torers catheter placed. She undergo PEG tube placement. Past Medical History Past Medical History: Asthma, COPD, CVA/TIA, Hearing Disorder / Deafness, Hyperlipidemia, Pneumonia, Seizure Disorder, Sleep Apnea/CPAP/BIPAP, Syncope, Vascular Disorder Additional Past Medical History / Comment(s): Pt tested covid + on 03/09/21 at [facility]. Other hx: Bowel obstructions/ileus and had a obstruction with colostomy which was reversed 08/02/20, colostomy current, constipation, cognitive delay/mentally challenged, bronchitis, dysphagia/has peg tube to supplement, tremors/tardive dyskinesia/tics, incontinent of urine and stool, UTIs, UTI with sepsis, macrocytic anemia, normally walks with assist of one but not lately-too difficult, MELLY with no cpap mild sensorineural bilateral hearing loss, venous insufficiency, sister unsure if pt has ever had a seizure, L arm contractured, bilateral feet hammer toes, chronic bilateral shoulder dislocations/hematoma, pancytopenia. History of Any Multi-Drug Resistant Organisms: None Reported Past Surgical History: Orthopedic Surgery Additional Past Surgical History / Comment(s): Peg tube, colectomy with ostomy placement, 08/02/20 reversal of colostomy current colostomy ; salvary gland left side removed, fx elbow surgery/ORIF, bilateral myringotomy and tubes.. Past Anesthesia/Blood Transfusion Reactions: No Reported Reaction Additional Past Anesthesia/Blood Transfusion Reaction / Comment(s): per [id number] hx of post-op reaction that she is aware of. Smoking Status: Never smoker - Past Family History Mother Family Medical History: Vascular Disorder Additional Family Medical History / Comment(s): Mother of a ruptured brain aneurysm in her 50s. Father Family Medical History: Coronary Artery Disease (CAD), Diabetes Mellitus Additional Family Medical History / Comment(s): Father lived to be 92 yrs old. He had CABG Medications and Allergies Home Medications Medication Instructions Recorded Confirmed Type Valproic Acid Oral Soln [Depakene 375 mg PEG/G-TUBE BID@0700,2100 11/01/20 05/01/21 History Syrup] risperiDONE [RisperDAL] 2 mg PEG/G-TUBE DAILY@0700 #10 tab 11/06/20 05/01/21 Rx Ipratropium-Albuterol Nebulize 3 ml INHALATION RT-QID PRN 12/14/20 04/29/21 History [Duoneb 0.5 mg-3 mg/3 ml Soln] LORazepam [Ativan] 0.5 mg PEG/G-TUBE BID@1200,1600 12/14/20 05/01/21 History LORazepam [Ativan] 1 mg PEG/G-TUBE HS@2100 12/14/20 05/01/21 History Magnesium Hydroxide [Milk of 2,400 mg PEG/G-TUBE Q48H PRN 12/14/20 04/29/21 History Magnesia] Na Phos,M-B/Na Phos,Di-Ba [Fleet 133 ml RECTAL Q96H PRN 12/14/20 04/29/21 History Adult] Reguloid Powder 48.57% 1 tbsp PEG/G-TUBE BID@0700,2100 12/14/20 05/01/21 History bisacodyL [Bisacodyl] 10 mg RECTAL DAILY PRN 12/14/20 04/29/21 History Acetaminophen Tab [Tylenol] 500 mg PEG/G-TUBE Q12H #60 tab 12/27/20 05/01/21 Rx Nutren Renal Liquid 0.5 can PEG/G-TUBE 03/12/21 05/01/21 History TID@1000,1400,2000 PRN amantadine HCL [Amantadine] 100 mg PEG/G-TUBE BID@0700,2100 03/12/21 05/01/21 History Amiodarone HCl [Pacerone] 200 mg PO DAILY 04/29/21 05/01/21 History Cholecalciferol [Vitamin D3 (25 125 mcg PO DAILY 04/29/21 05/01/21 History Mcg = 1000 Iu)] polyethylene glycoL 3350 [Miralax] 17 gm PO BID 04/29/21 05/01/21 History Allergies Allergy/AdvReac Type Severity Reaction Status Date / Time quetiapine Allergy Unknown Unknown Verified 04/29/21 10:05 lithium Allergy Unknown Verified 04/29/21 10:05 topiramate [From Topamax] Allergy Unknown Verified 04/29/21 10:05 Surgical - Exam Vital Signs Temp Pulse Resp BP Pulse Ox 97.3 F L 78 18 113/74 97 05/01/21 10:37 05/01/21 10:37 05/01/21 10:37 05/01/21 10:37 05/01/21 10:37 - General well developed, well nourished, no distress - Eyes PERRL - ENT normal pinna - Neck no masses - Respiratory normal expansion - Cardiovascular Rhythm: regular - Abdomen Abdomen: soft, non tender Assessment and Plan Assessment: Nutrition. We'll perform replacement of PEG tube
--- NOTE | 2021-05-01 11:05 | P.OP ---
Date of Procedure: 05/01/21 Preoperative Diagnosis: Malnutrition Postoperative Diagnosis: Malnutrition Procedure(s) Performed: EGD with PEG tube placement Anesthesia: MAC Surgeon: Charly Chow Pathology: none sent Condition: stable Disposition: PACU Description of Procedure: Patient's placed on the endoscopy table in the lateral position. She received IV sedation. The gastroscope placed oropharynx passed in the esophagus and stomach. Patient had a Torres catheter in the stomach. Torres catheter balloon was deflated and the Torres catheter was withdrawn. Under direct vision a 16- Setswana gastrostomy tube placed the stomach was inflated with 7 mL of saline. Scope was withdrawn. Patient top procedure well.
[2021-05-01 11:21] VITALS: PULSE 65
[2021-05-01 11:23] VITALS: RESP 16
[2021-05-01 11:25] VITALS: BP 124/74
== END 2021-05-01 11:41 ==
LOC: ORWHC2ENDO 09:29
PROVIDERS: ATTEND Surgery
DX: E46 Unspecified protein-calorie malnutrition (principal); J44.9 Chronic obstructive pulmonary disease, unspecified; Z86.73 Personal history of transient ischemic attack (TIA), and cerebral infarction without residual deficits; E78.5 Hyperlipidemia, unspecified; Z87.01 Personal history of pneumonia (recurrent); G40.909 Epilepsy, unspecified, not intractable, without status epilepticus; G47.33 Obstructive sleep apnea (adult) (pediatric); Z93.3 Colostomy status; K59.00 Constipation, unspecified; F99 Mental disorder, not otherwise specified; R25.1 Tremor, unspecified; G24.01 Drug induced subacute dyskinesia; F95.9 Tic disorder, unspecified; R32 Unspecified urinary incontinence; R15.9 Full incontinence of feces; Z86.19 Personal history of other infectious and parasitic diseases; D53.9 Nutritional anemia, unspecified; H90.3 Sensorineural hearing loss, bilateral; I87.2 Venous insufficiency (chronic) (peripheral); M20.42 Other hammer toe(s) (acquired), left foot; M20.41 Other hammer toe(s) (acquired), right foot; Z98.890 Other specified postprocedural states; Z96.22 Myringotomy tube(s) status; Z82.49 Family history of ischemic heart disease and other diseases of the circulatory system; Z83.3 Family history of diabetes mellitus; Z79.899 Other long term (current) drug therapy; Z88.8 Allergy status to other drugs, medicaments and biological substances
CPT/HCPCS: 43246; J2001; J2704

== ENCOUNTER → 2021-09-18 | Day surgery (SDC) | payer MEDICARE, OTHER ==
[2021-09-16 10:18] VITALS: BMI 21.6
[~2021-09-18] MED LIST changes: +PROPOFOL 10 MG/ML 20 ML VIAL IV ONE
[2021-09-18 08:33] VITALS: TEMP 98
--- NOTE | 2021-09-18 09:12 | P.GSHP ---
History of Present Illness H&P Date: 09/18/21 Chief Complaint: Malnutrition This is a 61-year-old female presents today for PEG tube placement. And EGD. Past Medical History Past Medical History: Asthma, COPD, CVA/TIA, Hearing Disorder / Deafness, Hyperlipidemia, Pneumonia, Seizure Disorder, Sleep Apnea/CPAP/BIPAP, Syncope, Vascular Disorder Additional Past Medical History / Comment(s): Hx Covid +ve 03/09/21 at [facility]. Hx bowel obstructions/ileus, hx of obstruction with colostomy which was reversed 08/02/20 and reversed again, currently has colostomy, constipation, cognitive delay/mentally challenged, non-verbal, bronchitis, dys phagia/has peg tube to supplement, tremors/tardive dyskinesia/tics, incontinent of urine and stool, UTIs, UTI with sepsis, macrocytic anemia, no cpap use, mild sensorineural bilateral hearing loss, venous insufficiency, sister unsure if pt has ever had a seizure, left arm contractured, bilateral feet hammer toes, chronic bilateral shoulder dislocations/hematoma, pancytopenia. Currently weak, wheelchair bound, use of transfer belt. History of Any Multi-Drug Resistant Organisms: None Reported Past Surgical History: Orthopedic Surgery Additional Past Surgical History / Comment(s): Peg tube, colectomy with ostomy placement, 08/02/20 reversal of colostomy current colostomy ; salvary gland left side removed, fx elbow surgery/ORIF, bilateral myringotomy and tubes, EGD.. Past Anesthesia/Blood Transfusion Reactions: No Reported Reaction Additional Past Anesthesia/Blood Transfusion Reaction / Comment(s): per [id number] hx of post-op reaction that she is aware of. Past Psychological History: Bipolar, Depression, Schizophrenia Additional Psychological History / Comment(s): Pt resides at [facility] in [place]. Smoking Status: Never smoker Past Alcohol Use History: None Reported Past Drug Use History: None Reported - Past Family History Mother Family Medical History: Vascular Disorder Additional Family Medical History / Comment(s): Mother of a ruptured brain aneurysm in her 50s. Father Family Medical History: Coronary Artery Disease (CAD), Diabetes Mellitus Additional Family Medical History / Comment(s): Father lived to be 92 yrs old. He had CABG. Medications and Allergies Home Medications Medication Instructions Recorded Confirmed Type Ipratropium-Albuterol Nebulize 3 ml INHALATION Q6H PRN 12/14/20 09/16/21 History [Duoneb 0.5 mg-3 mg/3 ml Soln] LORazepam [Ativan] 0.5 mg PO BID@1200,1600 12/14/20 09/16/21 History LORazepam [Ativan] 1 mg PO HS@2100 12/14/20 09/16/21 History Magnesium Hydroxide [Milk of 30 ml PO Q48H PRN 12/14/20 09/16/21 History Magnesia] Na Phos,M-B/Na Phos,Di-Ba [Fleet 133 ml RECTAL Q96H PRN 12/14/20 09/16/21 History Adult] Reguloid Powder 48.57% 1 tsp PO BID@0700,209912/14/20 09/16/21 History bisacodyL 10 mg RECTAL DAILY PRN 12/14/20 09/16/21 History Acetaminophen Tab [Tylenol] 500 mg PEG/G-TUBE Q12H #60 tab 12/27/20 09/16/21 Rx Nutren Renal Liquid 0.5 can PEG/G-TUBE 03/12/21 09/16/21 History TID@1000,1400,2000 amantadine HCL [Amantadine] 100 mg PO BID@0700,209903/12/21 09/16/21 History Amiodarone HCl [Pacerone] 200 mg PO DAILY@0700 04/29/21 09/16/21 History Cholecalciferol [Vitamin D3 (25 125 mcg PEG/G-TUBE DAILY@0704/29/21 09/16/21 History Mcg = 1000 Iu)] polyethylene glycoL 3350 [Miralax] 17 gm PO DAILY@0704/29/21 09/16/21 History Acetaminophen Tab [Tylenol Tab] 1,000 mg PO Q4H PRN 09/16/21 09/16/21 History Children's Silapap Liquid 160mg/5ml 15 ml PO QID PRN 09/16/21 09/16/21 History Fluticasone Propionate [Flovent 2 sprays NASAL DAILY@1700 09/16/21 09/16/21 History Diskus] Loratadine 10 mg PO DAILY@0700 09/16/21 09/16/21 History Nutren 2.0 1 can PEG/G-TUBE TID@0700,1200,1700 09/16/21 09/16/21 History Oralbalance Gel Dry Mouth 1 dose PO TID 09/16/21 09/16/21 History Valproic Acid [Depakene] 500 mg PO BID@0700,2100 09/16/21 09/16/21 History risperiDONE [RisperDAL] 1 mg PO BID 09/16/21 09/16/21 History Allergies Allergy/AdvReac Type Severity Reaction Status Date / Time quetiapine Allergy Unknown Unknown Verified 09/18/21 08:12 lithium Allergy Unknown Verified 09/18/21 08:12 topiramate [From Topamax] Allergy Unknown Verified 09/18/21 08:12 Surgical - Exam Vital Signs Temp Pulse Resp BP Pulse Ox 98 F 91 16 116/75 99 09/18/21 08:12 09/18/21 08:12 09/18/21 08:12 09/18/21 08:12 09/18/21 08:12 - General well developed, well nourished, no distress - Eyes PERRL - ENT normal pinna - Neck no masses - Respiratory normal expansion - Cardiovascular Rhythm: regular - Abdomen Abdomen: soft, non tender Assessment and Plan Assessment: Aleida. We'll perform replacement of PEG tube.
--- NOTE | 2021-09-18 10:06 | P.OP ---
Date of Procedure: 09/18/21 Preoperative Diagnosis: Malnutrition Postoperative Diagnosis: Malnutrition Procedure(s) Performed: EGD with gastrostomy tube placement Anesthesia: MAC Surgeon: Charly Chow Pathology: none sent Condition: stable Disposition: PACU Description of Procedure: The patient's placed on the endoscopy table in the lateral position. She received IV sedation. The gastroscope placed oropharynx passed in the esophagus into the stomach. The patient's previously placed Torres catheter had been removed. The gastrostomy tract was visualized. The replacement gastrostomy was then placed down through the abdominal wall tract into the stomach under direct vision. The balloon was inflated with 10 mL normal saline. The balloon appeared to be in good position. He was no injury to the stomach. The scope was then withdrawn for patient. Patient top she will was sent back to recovery room in stable condition.
[2021-09-18 10:29] VITALS: BP 127/68; PULSE 81; RESP 16
== END ==
LOC: ORWHC2ENDO 07:50
PROVIDERS: ATTEND Surgery
DX: E46 Unspecified protein-calorie malnutrition (principal); J44.9 Chronic obstructive pulmonary disease, unspecified; H91.90 Unspecified hearing loss, unspecified ear; E78.5 Hyperlipidemia, unspecified; G40.909 Epilepsy, unspecified, not intractable, without status epilepticus; Z86.16 Personal history of COVID-19; F31.9 Bipolar disorder, unspecified; F20.9 Schizophrenia, unspecified; D64.9 Anemia, unspecified; I87.2 Venous insufficiency (chronic) (peripheral); G47.33 Obstructive sleep apnea (adult) (pediatric); Z86.73 Personal history of transient ischemic attack (TIA), and cerebral infarction without residual deficits; Z79.899 Other long term (current) drug therapy; Z88.8 Allergy status to other drugs, medicaments and biological substances; Z99.3 Dependence on wheelchair
CPT/HCPCS: 43246; J2704